=== PATIENT | male | born 1955 | race American Indian/Alaskan Native ===

== ENCOUNTER 2021-01-20 18:34 | Inpatient (IN) | payer MEDICARE, OTHER ==
--- NOTE | 2021-01-20 19:29 | Emergency Department Report ---
- General Stated complaint: WEAKNESS/HEART ARRYTHMIA Time Seen by Provider: 01/20/21 19:10 - History of Present Illness Initial comments: 65-year-old male, history of hypertension, diabetes, ? Afib, presents to ED with generalized weakness. Patient is somewhat of a poor historian, and is somewhat confused, unable to remember the year. He does state that he has headache, cough, shortness of breath, decreased appetite. I spoke with patient's (Mary) and daughter (Crystal), over the phone. They report patient has had some generalized weakness since yesterday that has progressed and become worse today. States patient has been unsteady on his feet, but has not passed out. She reports cough and fever, no vomiting or diarrhea. reports patient takes Eliquis, she believes it is for atrial fibrillation. Patient has not received a COVID-19 vaccine at this time. EMS reports patient was febrile, temp of 102, and hypoxic upon their arrival, with O2 sats initially in the 70s. Accu-Chek 110. Patient also reportedly ran out of his blood pressure medication as well. Patient's O2 sats are 89% on room air here in the ED. daughter [phone] or [phone] Complaint: generalized weakness -: days(s) (2) Location: generalized Severity: moderate Consistency: constant Improves with: none Worsens with: none Associated Symptoms: fever/chills. denies: chest pain, nausea/vomiting - Related Data Home Medications Medication Instructions Recorded Confirmed Last Taken Amlodipine Besylate [Norvasc] 10 mg PO DAILY 01/20/21 01/20/21 01/19/21 Atorvastatin [Lipitor Tab] 80 mg PO DAILY 01/20/21 01/20/21 01/19/21 Banophen Anti-Itch 25 mg PO DAILY 01/20/21 01/20/21 01/19/21 Metformin HCl [metFORMIN ER 500 mg PO DAILY 01/20/21 01/20/21 01/19/21 Osmotic] Metoprolol [Lopressor] 25 mg PO DAILY 01/20/21 01/20/21 01/19/21 Allergies Allergy/AdvReac Type Severity Reaction Status Date / Time No Known Allergies Allergy Unverified 01/20/21 19:59 ED Review of Systems ROS: Stated complaint: WEAKNESS/HEART ARRYTHMIA Other details as noted in HPI Comment: All other systems reviewed and negative Constitutional: fever, weakness Respiratory: cough, shortness of breath Cardiovascular: denies: chest pain Gastrointestinal: denies: abdominal pain, vomiting, diarrhea Neurological: headache ED Past Medical Hx - Medications Home Medications: Home Medications Medication Instructions Recorded Confirmed Last Taken Type Amlodipine Besylate [Norvasc] 10 mg PO DAILY 01/20/21 01/20/21 01/19/21 History Atorvastatin [Lipitor Tab] 80 mg PO DAILY 01/20/21 01/20/21 01/19/21 History Banophen Anti-Itch 25 mg PO DAILY 01/20/21 01/20/21 01/19/21 History Metformin HCl [metFORMIN ER 500 mg PO DAILY 01/20/21 01/20/21 01/19/21 History Osmotic] Metoprolol [Lopressor] 25 mg PO DAILY 01/20/21 01/20/21 01/19/21 History ED Physical Exam - General General appearance: alert, in no apparent distress - Head Head exam: Present: atraumatic, normocephalic - Eye Eye exam: Present: normal appearance, EOMI - ENT ENT exam: Present: mucous membranes moist - Neck Neck exam: Present: normal inspection - Respiratory Respiratory exam: Present: normal lung sounds bilaterally, other (Slightly tachypneic) - Cardiovascular Cardiovascular Exam: Present: regular rate, normal rhythm - GI/Abdominal GI/Abdominal exam: Present: soft. Absent: distended, tenderness - Extremities Exam Extremities exam: Present: normal inspection. Absent: pedal edema, calf tenderness - Neurological Exam Neurological exam: Present: alert, CN II-XII intact. Absent: oriented X3 (Oriented to self and place), motor sensory deficit - Psychiatric Psychiatric exam: Present: normal affect, normal mood - Skin Skin exam: Present: warm, dry, intact, normal color ED Course Vital Signs 01/20/21 01/20/21 01/20/21 18:34 19:16 20:00 Temperature 101.2 F H Pulse Rate 89 104 H 113 H Respiratory 22 12 20 Rate Blood Pressure 196/114 Blood Pressure 192/111 [Right] O2 Sat by Pulse 89 72 L Oximetry 01/20/21 01/20/21 01/20/21 20:45 21:00 22:00 Temperature Pulse Rate 100 H 101 H 99 H Respiratory 23 17 Rate Blood Pressure 196/114 166/93 179/103 Blood Pressure [Right] O2 Sat by Pulse 99 99 Oximetry 01/20/21 01/20/21 22:37 23:43 Temperature 100.4 F H 98.1 F Pulse Rate 91 H Respiratory 20 Rate Blood Pressure Blood Pressure 168/95 [Right] O2 Sat by Pulse 99 Oximetry ED Medical Decision Making - Lab Data Result diagrams: 01/20/21 19:26 01/20/21 19:26 - EKG Data -: EKG Interpreted by Me EKG shows normal: QRS complexes Rate: normal - EKG Data Interpretation: nonspecific ST-T wave minal, other (Atrial fibrillation) - Radiology Data Radiology results: report reviewed, image reviewed - Medical Decision Making 65-year-old male with fever, cough, shortness of breath. O2 sats of 89% on room air. WBC is normal. Lactic acid normal. Chest x-ray unremarkable. CT chest was done which shows right middle and lower lobe inflammatory changes. Will treat as pneumonia. Blood cultures ordered. Rocephin and azithromycin adminis tered. Covid markers sent off. Will test for Covid tomorrow. Decadron also given. CT head shows parietal lesion which needs MRI for further characterization. Patient will be admitted by hospitalist, Dr. Luna, for further management. - Differential Diagnosis Pneumonia, COVID-19, ACS Critical Care Time: Yes Critical care time in (mins) excluding proc time.: 35 Critical care attestation.: If time is entered above; I have spent that time in minutes in the direct care of this critically ill patient, excluding procedure time. Critical Care Time: 35 min ED Disposition Clinical Impression: Hypoxia, Pneumonia, Suspected 2019 novel coronavirus infection, Hypertensive urgency Disposition: OP ADMIT IP TO THIS HOSP Is pt being admited?: Yes Condition: Stable Time of Disposition: 23:04
[2021-01-20 19:44] LABS: Bilirubin,Urine NEG (Negative); Blood,Urine NEG (Negative); Color,Urine Yellow (Yellow); Urobilinogen,Urine < 2.0 mg/dL (<2.0)
[2021-01-20 19:47] LABS: Basophils # (Auto) 0.1 K/mm3 (0.0-0.1); Eosinophils % (Auto) 0.5 % (0.0-4.3); Hematocrit 45.8 % (35.5-45.6); Hemoglobin 15.3 gm/dl (11.8-15.2); Lymphocytes # (Auto) 0.3 K/mm3 (1.2-5.4); Lymphocytes % (Auto) 5.2 % (13.4-35.0); Mean Corpuscular HGB Conc 34 % (32-34); Mean Corpuscular Volume 98 fl (84-94); Monocytes # (Auto) 0.7 K/mm3 (0.0-0.8); Monocytes % (Auto) 10.4 % (0.0-7.3); Platelet Count 219 K/mm3 (140-440); Red Blood Count 4.67 M/mm3 (3.65-5.03); Red Cell Distribution Width 15.2 % (13.2-15.2)
--- NOTE | 2021-01-20 19:49 | XRay Report ---
CHEST 1 VIEW 01/20/2021 7:21 PM INDICATION / CLINICAL INFORMATION: Cough and fever. COMPARISON: None available. FINDINGS: SUPPORT DEVICES: None. HEART / MEDIASTINUM: There is mild to moderate cardiomegaly with a left ventricular configuration. Pu lmonary vasculature is normal for technique. The aorta is mildly tortuous and ectatic without aneurys m. LUNGS / PLEURA: No significant pulmonary or pleural abnormality. No pneumothorax. ADDITIONAL FINDINGS: There is mild to moderate elevation of the left hemidiaphragm. IMPRESSION: No acute findings. I see no evidence of pneumonia. Signer Name: Homero Isidro MD Signed: 01/20/2021 7:45 PM Workstation Name: [id number]
[2021-01-20 20:00] LABS: Protein,Urine >500 mg/dL (Negative)
[2021-01-20 20:01] LABS: Alanine Aminotransferase 15 units/L (7-56); Albumin 4.1 g/dL (3.9-5); BUN/Creatinine Ratio 11; Blood Urea Nitrogen 10 mg/dL (9-20); Calcium 8.7 mg/dL (8.4-10.2); Hemolysis Index 8
[2021-01-20 20:05] LABS: INR 1.05 (0.87-1.13)
[2021-01-20 20:06] LABS: Partial Thromboplastin Time 30.5 Sec. (24.2-36.6)
[2021-01-20] MEDS ORDERED: hydrALAZINE 20 MG/1 ML INJ IV ONE (20:17)
[2021-01-20] MEDS ORDERED: ACETAMINOPHEN 500 MG TAB PO ONE (20:18)
[2021-01-20] MEDS ORDERED: LORazepam 2 MG/ML VIAL IV ONE (21:32)
--- NOTE | 2021-01-20 22:52 | Cat Scan Report ---
CT HEAD WITHOUT CONTRAST HISTORY: dizziness COMPARISON: None TECHNIQUE: CT imaging of the head was performed in the axial, sagittal, and coronal projections and bone algori thm in axial projection in the soft tissue algorithm. All CT scans at this location are performed using CT dose reduction for ALARA by means of automated e xposure control. CONTRAST: None. FINDINGS: Streak artifact and motion artifact obscures fine detail Cerebral and Cerebellar Hemispheres: Well-defined area of decreased attenuation is present right vaughn etal lobe measuring 1.8 cm in diameter. No extra-axial fluid collection. Ventricles: Normal in size and configuration for age. Osseous Structures: No significant abnormality. Visualized Paranasal Sinuses: No significant abnormality. Additional Findings: None IMPRESSION: 1. Limited imaging secondary to artifact as noted. Low dense area right parietal lobe, etiology uncl ear recommend MR for further evaluation NOTE: Acute infarct may not be visible by noncontrast CT. Signer Name: Eligio Boss MD Signed: 01/20/2021 10:47 PM Workstation Name: [id number]
--- NOTE | 2021-01-20 22:57 | Cat Scan Report ---
CT CHEST WITHOUT CONTRAST INDICATION / CLINICAL INFORMATION: fever, cough, sob. , TECHNIQUE: Axial CT images were obtained through the chest without contrast. All CT scans at this location are p erformed using CT dose reduction for ALARA by means of automated exposure control. COMPARISON: None available. FINDINGS: HEART: No significant abnormality. THORACIC AORTA: No significant abnormality. MEDIASTINUM and ANGELIA: No significant abnormality. LUNGS: Minimum parenchymal changes right middle and right lower lobe. PLEURA: No significant pleural effusion. No pneumothorax. ADDITIONAL FINDINGS: None. UPPER ABDOMEN: No significant abnormality. SKELETAL SYSTEM: No significant abnormality. IMPRESSION: 1. Possible mild inflammatory process right middle and right lower lobe. Signer Name: Eligio Boss MD Signed: 01/20/2021 10:53 PM Workstation Name: [id number]
[2021-01-20] MEDS ORDERED: AZITHROMYCIN 250 MG TAB PO ONE (22:59)
[2021-01-20] MEDS ORDERED: cefTRIAXone/NS 1 GM/50 ML 1 GM/50 ML BAG IV ONE (22:59)
[2021-01-20] MEDS ORDERED: DEXAMETHASONE 4 MG TAB PO ONE (23:00)
[2021-01-20] MEDS ORDERED: ONDANSETRON 4 MG/2 ML INJ IV PRN (23:38)
[2021-01-20] MEDS ORDERED: ALBUTEROL 2.5 MG/3 ML NEBU IH PRN (23:38)
[2021-01-20] MEDS ORDERED: DEXTROSE 50% IN WATER (25GM) 50 ML SYRINGE IV PRN (23:38)
[2021-01-20] MEDS ORDERED: SODIUM CHLORIDE 0.9% 1000 ML 1,000 ML IV SCH (23:45)
[2021-01-20] MEDS ORDERED: hydrALAZINE 20 MG/1 ML INJ IV PRN (23:46)
--- NOTE | 2021-01-20 23:54 | History and Physical Report ---
History of Present Illness Date of examination: 01/20/21 Date of admission: 01/20/21 23:06 Chief complaint: Weakness Headache, cough Shortness of breath fever chills History of present illness: 65-year-old male with past medical history of diabetes, hypertension [place] was brought to the emergency room because of generalized weakness. Patient is somewhat of a poor historian, and confused, unable to remember the year. Patient has headache, cough, shortness of breath, decreased appetite. As per patient's (Mary) and daughter (Crystal),patient has had some generalized weakness since yesterday that has progressed and become worse today. States patient has been unsteady on his feet, but has not passed out. She reports cough and fever, no vomiting or diarrhea. reports patient takes Eliquis, she believes it is for atrial fibrillation. Patient has not received a COVID-19 vaccine at this time. EMS reports patient was febrile, temp of 102, and hypoxic upon their arrival, with O2 sats initially in the 70s. Accu-Chek 110. Patient also reportedly ran out of his blood pressure medication as well. In the emergency room patient CT scan of the chest shows possible mild inflammatory process right middle lobe and right lower lobe. Also CT scan of the head shows limited imaging secondary to artifact as noted low dense area right parietal lobe etiology unclear recommend MR for further evaluation Past History Past Medical History: atrial fib, diabetes, hypertension Medications and Allergies Allergies Allergy/AdvReac Type Severity Reaction Status Date / Time No Known Allergies Allergy Unverified 01/20/21 19:59 Home Medications Medication Instructions Recorded Confirmed Last Taken Type Amlodipine Besylate [Norvasc] 10 mg PO DAILY 01/20/21 01/20/21 01/19/21 History Atorvastatin [Lipitor Tab] 80 mg PO DAILY 01/20/21 01/20/21 01/19/21 History Banophen Anti-Itch 25 mg PO DAILY 01/20/21 01/20/21 01/19/21 History Metformin HCl [metFORMIN ER 500 mg PO DAILY 01/20/21 01/20/21 01/19/21 History Osmotic] Metoprolol [Lopressor] 25 mg PO DAILY 01/20/21 01/20/21 01/19/21 History Active Meds: Active Medications Acetaminophen (Acetaminophen 325 Mg Tab) 650 mg PO Q4H PRN PRN Reason: Pain MILD(1-3)/Fever >100.5/[place] Albuterol (Albuterol 2.5 Mg/3 Ml Nebu) 2.5 mg IH Q4HRT PRN PRN Reason: Shortness Of Breath Albuterol/Ipratropium (Ipratropium/Albuterol Sulfate 3 Ml Ampul.Neb) 1 ampul IH Q6HRT [facility] Amlodipine Besylate (Amlodipine 5 Mg Tab) 10 mg PO DAILY [facility] Aspirin (Aspirin 325 Mg Tab) 325 mg PO QDAY [facility] Atorvastatin Calcium (Atorvastatin 40 Mg Tab) 40 mg PO QHS [facility] Dextrose (Dextrose 50% In Water (25gm) 50 Ml Syringe) 50 ml IV Q30MIN PRN; Protocol PRN Reason: Hypoglycemia Famotidine (Famotidine 20 Mg Tab) 20 mg PO BID [facility] Heparin Sodium (Porcine) (Heparin 5,000 Unit/1 Ml Vial) 5,000 unit SUB-Q Q8HR [facility] Hydralazine HCl (Hydralazine 20 Mg/1 Ml Inj) 10 mg IV Q6H PRN PRN Reason: htn Sodium Chloride (Nacl 0.9% 1000 Ml) 1,000 mls @ 75 mls/hr IV DIRECT NGUYEN Ceftriaxone Sodium (Rocephin/Ns 2 Gm/100 Ml) 2 gm in 100 mls @ 200 mls/hr IV Q24H NGUYEN; Protocol Azithromycin (Zithromax/Ns) 500 mg in 250 mls @ 250 mls/hr IV Q24H NGUYEN; Protocol Insulin Human Lispro (Insulin Lispro 100 Unit/Ml) 0 unit SUB-Q Q6HR [facility]; Protocol Labetalol HCl (Labetalol 20 Mg/4 Ml Inj) 10 mg IV Q5MIN PRN PRN Reason: to maintain SBP < 180 Metoprolol Tartrate (Metoprolol Tartrate 25 Mg Tab) 25 mg PO DAILY [facility] Miscellaneous Medication (Atorvastatin [Lipitor]) 80 mg PO DAILY [facility] Ondansetron HCl (Ondansetron 4 Mg/2 Ml Inj) 4 mg IV Q8H PRN PRN Reason: Nausea And Vomiting Sodium Chloride (Sodium Chloride 0.9% 10 Ml Flush Syringe) 10 ml IV BID [facility] Sodium Chloride (Sodium Chloride 0.9% 10 Ml Flush Syringe) 10 ml IV PRN PRN PRN Reason: LINE FLUSH Review of Systems Constitutional: fever, chills, weakness Cardiovascular: rapid/irregular heart beat, shortness of breath Respiratory: shortness of breath, other (Hypoxic) Exam - Constitutional Vitals: Temp Pulse Resp BP Pulse Ox 98.1 F 91 H 20 168/95 99 01/20/21 23:43 01/20/21 23:43 01/20/21 23:43 01/20/21 23:43 01/20/21 23:43 General appearance: Present: no acute distress, well-nourished - EENT Eyes: Present: PERRL ENT: hearing intact, clear oral mucosa - Neck Neck: Present: supple, normal ROM - Respiratory Respiratory effort: normal Respiratory: bilateral: diminished - Cardiovascular Heart Sounds: Present: S1 & S2. Absent: rub, click - Extremities Extremities: pulses symmetrical, No edema Peripheral Pulses: within normal limits - Abdominal General gastrointestinal: Present: soft, non-tender, non-distended, normal bowel sounds Male genitourinary: Present: normal - Integumentary Integumentary: Present: clear, warm, dry - Musculoskeletal Musculoskeletal: gait normal, strength equal bilaterally - Psychiatric Psychiatric: other (Confused) - Neurologic Neurologic: CNII-XII intact, moves all extremities HEART Score - HEART Score Troponin: Troponin T < 0.010 ng/mL (0.00-0.029) 01/20/21 19:26 Results - Labs CBC & Chem 7: 01/20/21 19:26 01/20/21 19:26 Labs: Laboratory Last Values WBC 6.4 K/mm3 (4.5-11.0) 01/20/21 19: RBC 4.67 M/mm3 (3.65-5.03) 01/20/21 19:26 Hgb 15.3 gm/dl (11.8-15.2) H 01/20/21 19:26 Hct 45.8 % (35.5-45.6) H 01/20/21 19: MCV 98 fl (84-94) H 01/20/21 19: MCH 33 pg (28-32) H 01/20/21 19: MCHC 34 % (32-34) 01/20/21 19: RDW 15.2 % (13.2-15.2) 01/20/21 19:26 Plt Count 219 K/mm3 (140-440) 01/20/21 19:26 Lymph % (Auto) 5.2 % (13.4-35.0) L 01/20/21 19:26 [place] % (Auto) 10.4 % (0.0-7.3) H 01/20/21 19:26 Eos % (Auto) 0.5 % (0.0-4.3) 01/20/21 19:26 Baso % (Auto) 1.0 % (0.0-1.8) 01/20/21 19:26 Lymph # (Auto) 0.3 K/mm3 (1.2-5.4) L 01/20/21 19:26 [place] # (Auto) 0.7 K/mm3 (0.0-0.8) 01/20/21 19: Eos # (Auto) 0.0 K/mm3 (0.0-0.4) 01/20/21 19: Baso # (Auto) 0.1 K/mm3 (0.0-0.1) 01/20/21 19:26 Seg Neutrophils % 82.9 % (40.0-70.0) H 01/20/21 19:26 Seg Neutrophils # 5.3 K/mm3 (1.8-7.7) 01/20/21 19:26 PT 13.6 Sec. (12.2-14.9) 01/20/21 19:26 INR 1.05 (0.87-1.13) 01/20/21 19:26 APTT 30.5 Sec. (24.2-36.6) 01/20/21 19:26 Sodium 139 mmol/L (137-145) 01/20/21 19:26 Potassium 4.0 mmol/L (3.6-5.0) 01/20/21 19:26 Chloride 97.8 mmol/L (98-107) L 01/20/21 19:26 Carbon Dioxide 33 mmol/L (22-30) H 01/20/21 19:26 Anion Gap 12 mmol/L 01/20/21 19:26 BUN 10 mg/dL (9-20) 01/20/21 19:26 Creatinine 0.9 mg/dL (0.8-1.3) 01/20/21 19:26 Estimated GFR > 60 ml/min 01/20/21 19:26 BUN/Creatinine Ratio 11 % 01/20/21 19:26 Glucose 127 mg/dL (75-100) H 01/20/21 19:26 Lactic Acid 1.50 mmol/L (0.7-2.0) 01/20/21 19:26 Calcium 8.7 mg/dL (8.4-10.2) 01/20/21 19:26 Total Bilirubin 0.70 mg/dL (0.1-1.2) 01/20/21 19:26 AST 20 units/L (5-40) 01/20/21 19:26 ALT 15 units/L (7-56) 01/20/21 19:26 Alkaline Phosphatase 95 units/L (35-129) 01/20/21 19: Troponin T < 0.010 ng/mL (0.00-0.029) 01/20/21 19:26 Total Protein 7.7 g/dL (6.3-8.2) 01/20/21: Albumin 4.1 g/dL (3.9-5) 01/20/21 19:26 Albumin/Globulin Ratio 1.1 % 01/20/21 19:26 Urine Color Yellow (Yellow) 01/20/21 Unknown Urine Turbidity Clear (Clear) 01/20/21 Unknown Urine pH 6.0 (5.0-7.0) 01/20/21 Unknown Ur Specific [place] 1.022 (1.003-1.030) 01/20/21 Unknown Urine Protein >500 mg/dL (Negative) 01/20/21 Unknown Urine Glucose (UA) Neg mg/dL (Negative) 01/20/21 Unknown Urine Ketones Neg mg/dL (Negative) 01/20/21 Unknown Urine Blood Neg (Negative) 01/20/21 Unknown Urine Nitrite Neg (Negative) 01/20/21 Unknown Urine Bilirubin Neg (Negative) 01/20/21 Unknown Urine Urobilinogen < 2.0 mg/dL (<2.0) 01/20/21 Unknown Ur Leukocyte Esterase Neg (Negative) 01/20/21 Unknown Urine WBC (Auto) 1.0 /HPF (0.0-6.0) 01/20/21 Unknown Urine RBC (Auto) 4.0 /HPF (0.0-6.0) 01/20/21 Unknown U Epithel Cells (Auto) < 1.0 /HPF (0-13.0) 01/20/21 Unknown Microbiology: Microbiology 01/20/21 19:26 Peripheral/Venous Blood Culture - Preliminary Culture in Progress 01/20/21 19:26 Peripheral/Venous Blood Culture - Preliminary Culture in Progress - Imaging and Cardiology CT scan - chest: report reviewed CT Scan - head: report reviewed Assessment and Plan VTE prophylaxis?: Chemical Plan of care discussed with patient/family: Yes - Patient Problems (1) Pneumonia Current Visit: Yes Status: Acute Plan to address problem: Admit the patient to the medical telemetry. Put the patient on pneumonia pathway. Oxygen via nasal cannula 3 L/min. DuoNeb by nebulizer every 4 hours as needed. Rocephin 2 g IV daily and Zithromax 500 mg IV daily we will do the blood culture and sputum culture. If needed will consult pulmonary (2) Hypoxia Current Visit: Yes Status: Acute Plan to address problem: Put the patient on pneumonia pathway. Oxygen via nasal cannula 3 L/min. DuoNeb by nebulizer every 4 hours as needed. If needed will consult pulmonary (3) Suspected 2019 novel coronavirus infection Current Visit: Yes Status: Acute Plan to address problem: Put the patient on pneumonia pathway. Oxygen via nasal cannula 3 L/min. DuoNeb by nebulizer every 4 hours as needed. Dexamethasone 6 mg IV daily. Rocephin 2 g IV daily and Zithromax 500 mg IV daily we will do the blood culture and sputum culture. Follow the Covid inflammatory markers and Covid PCR. If needed will consult infectious disease (4) Diabetes Current Visit: Yes Status: Acute Plan to address problem: We will put the patient on Humalog sliding scale Accu-Chek every 6 hours with moderate dose coverage. We also consult diabetic education (5) A-fib Current Visit: Yes Status: Acute Plan to address problem: Heparin 5000 units subcu every 8 hours. We do echocardiogram. If needed will consult cardiology (6) Hypertensive urgency Current Visit: Yes Status: Acute Plan to address problem: Labetalol 10 mg IV q. 5 minutes as needed. Hydralazine 10 mg IV every 6 hours as needed. Metoprolol 25 mg p.o. daily. We will monitor the blood pressure closely (7) Abnormal CT scan, head Current Visit: Yes Status: Acute Plan to address problem: We will put the patient on CVA pathway. Aspirin 325 mg p.o. daily and Lipitor 40 mg p.o. daily. We will do MRI of the brain and MRA of the brain and neck with and without contrast. If needed will consult neurology. (8) DVT prophylaxis Current Visit: Yes Status: Acute Plan to address problem: Heparin 5000 units subcu every 8 hours for DVT prophylaxis. Pepcid 20 mg p.o. twice daily for GI prophylaxis. Patient is a full code
[2021-01-21] MEDS: INSULIN LISPRO 100 UNIT/ML SUB-Q SCH ×4 (00:33→19:11)
[2021-01-21 01:48] LABS: C-Reactive Protein 2.7 mg/dL (0.00-1.30)
[2021-01-21] MEDS ORDERED: IPRATROPIUM/ALBUTEROL SULFATE 3 ML AMPUL.NEB IH SCH (02:00)
[2021-01-21] MEDS: ACETAMINOPHEN 325 MG TAB PO PRN (05:34)
[2021-01-21] MEDS ORDERED: HEPARIN 5,000 UNIT/1 ML VIAL SUB-Q SCH (06:00)
[2021-01-21 06:09] LABS: Hematocrit 47.9 % (35.5-45.6); Hemoglobin 15.9 gm/dl (11.8-15.2); Mean Corpuscular HGB Conc 33 % (32-34); Mean Corpuscular Volume 98 fl (84-94); Platelet Count 221 K/mm3 (140-440); Red Blood Count 4.87 M/mm3 (3.65-5.03); Red Cell Distribution Width 15.3 % (13.2-15.2)
[2021-01-21 06:29] LABS: Blood Urea Nitrogen 11 mg/dL (9-20); Calcium 8.8 mg/dL (8.4-10.2); Chol/HDL Ratio 3.68 %; HDL Cholesterol 57 mg/dL (40-59); Hemolysis Index 3; LDL Cholesterol,Direct 155 mg/dL (50-130)
[2021-01-21 06:39] LABS: BUN/Creatinine Ratio 16
[2021-01-21] MEDS: METOPROLOL TARTRATE 25 MG TAB PO SCH (08:06)
[2021-01-21] MEDS: dexAMETHasone 4 MG/ML VIAL IV SCH (11:02)
[2021-01-21] MEDS: ASPIRIN 325 MG TAB PO SCH (11:03)
[2021-01-21] MEDS: FAMOTIDINE 20 MG TAB PO SCH ×2 (11:03→21:42)
[2021-01-21] MEDS: amLODIPine 10 MG TAB PO SCH (11:04)
[2021-01-21 12:03] LABS: Total Cells Counted 100
[2021-01-21 12:04] LABS: Platelet Estimate Consistent w Auto; RBC Morphology Normal
--- NOTE | 2021-01-21 13:18 | Progress Note ---
Assessment and Plan Assessment and plan: --Possible pneumonia Current Visit: Yes Status: Acute Empiric antibiotics follow cultures, oxygen titration O2 sats to more than 90% Supportive care --Acute hypoxia Current Visit: Yes Status: Acute Oxygen titrate O2 sats to more than 90%, albuterol Empiric antibiotics, follow cultures, home O2 evaluation at discharge --PUI suspected 2019 novel coronavirus infection Current Visit: Yes Status: Acute Isolation, prone positioning, if COVID-19 is positive Inflammatory markers, ID consult if positive --Type II diabetes Current Visit: Yes Status: Acute Accu-Chek sliding scale coverage ADA diet Insulin and oral hypoglycemics as needed --History of chronic A. fib A-fib Current Visit: Yes Status: Acute continue beta-blockers. Patient takes Eliquis at home Resume Eliquis 5 mg twice a day and beta-blockers closely monitor --Hypertensive urgency Current Visit: Yes Status: Acute Continue multiple antihypertensives And as needed hydralazine --Abnormal CT scan, head Current Visit: Yes Status: Acute CVA pathway, neuro work-up, aspirin and statin PT and OT, discharge planning per case management --DVT prophylaxis Current Visit: Yes Status: Acute Heparin 5000 units subcu every 8 hours for DVT prophylaxis. Pepcid 20 mg p.o. twice daily for GI prophylaxis. Patient is a full code We will closely monitor the patient and adjust management as needed Plan of care reviewed with the patient and his nurse History Interval history: I have seen and examined the patient at the bedside Patient's chart and medications reviewed Patient severely lethargic, getting confused at times Hospitalist Physical - Constitutional Vitals: Temp Pulse Resp BP Pulse Ox 100.1 F H 84 18 136/78 91 01/21/21 04:41 01/21/21 11:04 01/21/21 04:41 01/21/21 11:04 01/21/21 04:41 General appearance: Present: no acute distress, well-nourished - EENT Eyes: Present: PERRL, EOM intact - Neck Neck: Present: supple, normal ROM - Respiratory Respiratory effort: normal Respiratory: bilateral: diminished, negative: rales, rhonchi, wheezing - Cardiovascular Rhythm: regularly irregular Heart Sounds: Present: S1 & S2 - Extremities Extremities: no ischemia, pulses intact - Abdominal General gastrointestinal: soft, non-tender, non-distended, normal bowel sounds - Integumentary Integumentary: Present: clear, warm - Psychiatric Psychiatric: appropriate mood/affect, cooperative - Neurologic Neurologic: CNII-XII intact, moves all extremities HEART Score - HEART Score Troponin: Troponin T < 0.010 ng/mL (0.00-0.029) 01/20/21 19:26 Results - Labs CBC & Chem 7: 01/21/21 05:45 01/21/21 05:45 Labs: Laboratory Last Values WBC 7.1 K/mm3 (4.5-11.0) 01/21/21 05:45 RBC 4.87 M/mm3 (3.65-5.03) 01/21/21 05:45 Hgb 15.9 gm/dl (11.8-15.2) H 01/21/21 05:45 Hct 47.9 % (35.5-45.6) H 01/21/21 05:45 MCV 98 fl (84-94) H 01/21/21 05:45 MCH 33 pg (28-32) H 01/21/21 05:45 MCHC 33 % (32-34) 01/21/21 05:45 RDW 15.3 % (13.2-15.2) H 01/21/21 05:45 Plt Count 221 K/mm3 (140-440) 01/21/21 05:45 Lymph % (Auto) 5.2 % (13.4-35.0) L 01/20/21 19:26 [place] % (Auto) 10.4 % (0.0-7.3) H 01/20/21 19:26 Eos % (Auto) 0.5 % (0.0-4.3) 01/20/21 19:26 Baso % (Auto) 1.0 % (0.0-1.8) 01/20/21 19:26 Lymph # (Auto) 0.3 K/mm3 (1.2-5.4) L 01/20/21 19:26 [place] # (Auto) 0.7 K/mm3 (0.0-0.8) 01/20/21 19:26 Eos # (Auto) 0.0 K/mm3 (0.0-0.4) 01/20/21 19:26 Baso # (Auto) 0.1 K/mm3 (0.0-0.1) 01/20/21 19:26 Add Manual Diff Complete 01/21/21 05:45 Total Counted 100 01/21/21 05:45 Seg Neutrophils % Publicity Person 01/21/21 05:45 Seg Neuts % (Manual) 96.0 % (40.0-70.0) H 01/21/21 05:45 Lymphocytes % (Manual) 3.0 % (13.4-35.0) L 01/21/21 05:45 Monocytes % (Manual) 1.0 % (0.0-7.3) 01/21/21 05:45 Nucleated RBC % Not Reportable 01/21/21 05:45 Seg Neutrophils # 5.3 K/mm3 (1.8-7.7) 01/20/21 19:26 Seg Neutrophils # Man 6.8 K/mm3 (1.8-7.7) 01/21/21 05:45 Band Neutrophils # 0.0 K/mm3 01/21/21 05:45 Lymphocytes # (Manual) 0.2 K/mm3 (1.2-5.4) L 01/21/21 05:45 Abs React Lymphs (Man) 0.0 K/mm3 01/21/21 05:45 Monocytes # (Manual) 0.1 K/mm3 (0.0-0.8) 01/21/21 05:45 Eosinophils # (Manual) 0.0 K/mm3 (0.0-0.4) 01/21/21 05:45 Basophils # (Manual) 0.0 K/mm3 (0.0-0.1) 01/21/21 05:45 Metamyelocytes # 0.0 K/mm3 01/21/21 05:45 Myelocytes # 0.0 K/mm3 01/21/21 05:45 Promyelocytes # 0.0 K/mm3 01/21/21 05:45 Blast Cells # 0.0 K/mm3 01/21/21 05:45 WBC Morphology Not Reportable 01/21/21 05:45 Hypersegmented Neuts Not Reportable 01/21/21 05:45 Hyposegmented Neuts Not Reportable 01/21/21 05:45 Hypogranular Neuts Not Reportable 01/21/21 05:45 Smudge Cells Not Reportable 01/21/21 05:45 Toxic Granulation Not Reportable 01/21/21 05:45 Toxic Vacuolation Not Reportable 01/21/21 05:45 Dohle Bodies Not Reportable 01/21/21 05:45 Pelger-Huet Anomaly Not Reportable 01/21/21 05:45 Masood Rods Not Reportable 01/21/21 05:45 Platelet Estimate Consistent w auto 01/21/21 05:45 Clumped Platelets Not Reportable 01/21/21 05:45 Plt Clumps, EDTA Not Reportable 01/21/21 05:45 Large Platelets Not Reportable 01/21/21 05:45 Giant Platelets Not Reportable 01/21/21 05:45 Platelet Satelliting Not Reportable 01/21/21 05:45 Plt Morphology Comment Not Reportable 01/21/21 05:45 RBC Morphology Normal 01/21/21 05:45 Dimorphic RBCs Not Reportable 01/21/21 05:45 Polychromasia Not Reportable 01/21/21 05:45 Hypochromasia Not Reportable 01/21/21 05:45 Poikilocytosis Not Reportable 01/21/21 05:45 Anisocytosis Not Reportable 01/21/21 05:45 Microcytosis Not Reportable 01/21/21 05:45 Macrocytosis Not Reportable 01/21/21 05:45 Spherocytes Not Reportable 01/21/21 05:45 Pappenheimer Bodies Not Reportable 01/21/21 05:45 Sickle Cells Not Reportable 01/21/21 05:45 Target Cells Not Reportable 01/21/21 05:45 Tear Drop Cells Not Reportable 01/21/21 05:45 Ovalocytes Not Reportable 01/21/21 05:45 Helmet Cells Not Reportable 01/21/21 05:45 [place] Bodies Not Reportable 01/21/21 05:45 [place] Rings Not Reportable 01/21/21 05:45 [place] Cells Not Reportable 01/21/21 05:45 Bite Cells Not Reportable 01/21/21 05:45 Crenated Cell Not Reportable 01/21/21 05:45 Elliptocytes Not Reportable 01/21/21 05:45 Acanthocytes (Spur) Not Reportable 01/21/21 05:45 Rouleaux Not Reportable 01/21/21 05:45 Hemoglobin C Crystals Not Reportable 01/21/21 05:45 Schistocytes Not Reportable 01/21/21 05:45 Malaria parasites Not Reportable 01/21/21 05:45 Roney Bodies Not Reportable 01/21/21 05:45 Hem Pathologist Commnt No 01/21/21 05:45 PT 13.6 Sec. (12.2-14.9) 01/20/21 19:26 INR 1.05 (0.87-1.13) 01/20/21 19:26 APTT 30.5 Sec. (24.2-36.6) 01/20/21 19:26 D-Dimer 229.34 ng/mlDDU (0-234) 01/20/21 23:20 Sodium 139 mmol/L (137-145) 01/21/21 05:45 Potassium 4.3 mmol/L (3.6-5.0) 01/21/21 05:45 Chloride 96.2 mmol/L (98-107) L 01/21/21 05:45 Carbon Dioxide 35 mmol/L (22-30) H 01/21/21 05:45 Anion Gap 12 mmol/L 01/21/21 05:45 BUN 11 mg/dL (9-20) 01/21/21 05:45 Creatinine 0.7 mg/dL (0.8-1.3) L 01/21/21 05:45 Estimated GFR > 60 ml/min 01/21/21 05:45 BUN/Creatinine Ratio 16 % 01/21/21 05:45 Glucose 142 mg/dL (75-100) H 01/21/21 05:45 POC Glucose 119 mg/dL (70-105) H 01/21/21 00:17 Lactic Acid 1.50 mmol/L (0.7-2.0) 01/20/21 19:26 Calcium 8.8 mg/dL (8.4-10.2) 01/21/21 05:45 Ferritin 128.4 ng/mL (30.0-300.0) 01/20/21 23:20 Total Bilirubin 0.70 mg/dL (0.1-1.2) 01/20/21 19:26 AST 20 units/L (5-40) 01/20/21 19:26 ALT 15 units/L (7-56) 01/20/21 19:26 Alkaline Phosphatase 95 units/L (35-129) 01/20/21 19:26 Lactate Dehydrogenase 384 units/L (91-180) H 01/20/21 23:20 Troponin T < 0.010 ng/mL (0.00-0.029) 01/20/21 19:26 C-Reactive Protein 2.70 mg/dL (0.00-1.30) H 01/20/21 23:20 Total Protein 7.7 g/dL (6.3-8.2) 01/20/21 19:26 Albumin 4.1 g/dL (3.9-5) 01/20/21 19:26 Albumin/Globulin Ratio 1.1 % 01/20/21 19:26 Triglycerides 49 mg/dL (2-149) 01/21/21 05:45 Cholesterol 210 mg/dL (50-199) H 01/21/21 05:45 LDL Cholesterol Direct 155 mg/dL (50-130) H 01/21/21 05:45 HDL Cholesterol 57 mg/dL (40-59) 01/21/21 05:45 Cholesterol/HDL Ratio 3.68 % 01/21/21 05:45 Procalcitonin 0.13 ng/mL (<0.15) 01/20/21 23:20 Urine Color Yellow (Yellow) 01/20/21 Unknown Urine Turbidity Clear (Clear) 01/20/21 Unknown Urine pH 6.0 (5.0-7.0) 01/20/21 Unknown Ur Specific [place] 1.022 (1.003-1.030) 01/20/21 Unknown Urine Protein >500 mg/dL (Negative) 01/20/21 Unknown Urine Glucose (UA) Neg mg/dL (Negative) 01/20/21 Unknown Urine Ketones Neg mg/dL (Negative) 01/20/21 Unknown Urine Blood Neg (Negative) 01/20/21 Unknown Urine Nitrite Neg (Negative) 01/20/21 Unknown Urine Bilirubin Neg (Negative) 01/20/21 Unknown Urine Urobilinogen < 2.0 mg/dL (<2.0) 01/20/21 Unknown Ur Leukocyte Esterase Neg (Negative) 01/20/21 Unknown Urine WBC (Auto) 1.0 /HPF (0.0-6.0) 01/20/21 Unknown Urine RBC (Auto) 4.0 /HPF (0.0-6.0) 01/20/21 Unknown U Epithel Cells (Auto) < 1.0 /HPF (0-13.0) 01/20/21 Unknown Microbiology: Microbiology 01/20/21 Unknown Urine,Clean Catch Urine Culture - Preliminary 01/20/21 19:26 Peripheral/Venous Blood Culture - Preliminary Culture in Progress 01/20/21 19:26 Peripheral/Venous Blood Culture - Preliminary Culture in Progress Active Medications - Current Medications Current Medications: Generic Name Dose Route Start Last Admin Trade Name Freq PRN Reason Stop Dose Admin Acetaminophen 650 mg 01/20/21 23:38 01/21/21 05:34 Acetaminophen 325 Mg Tab PO 650 mg Q4H PRN Administration Pain MILD(1-3)/Fever >100.5/GIB[place] Albuterol 2.5 mg 01/20/21 23:38 Albuterol 2.5 Mg/3 Ml Nebu IH Q4HRT PRN Shortness Of Breath Amlodipine Besylate 10 mg 01/21/21 10:00 01/21/21 11:04 Amlodipine 10 Mg Tab PO 10 mg DAILY NGUYEN Administration Aspirin 325 mg 01/21/21 10:00 01/21/21 11:03 Aspirin 325 Mg Tab PO 325 mg QDAY NGUYEN Administration Atorvastatin Calcium 80 mg 01/21/21 10:00 01/21/21 11:05 Atorvastatin 40 Mg Tab PO 80 mg DAILY NGUYEN Administration Dexamethasone 6 mg 01/21/21 10:00 01/21/21 11:02 Dexamethasone 4 Mg/Ml Vial IV 01/29/21 10:01 6 mg DAILY NGUYEN Administration Dextrose 0 ml 01/20/21 23:38 Dextrose 50% In Water (25gm) 50 Ml Syringe IV Q30MIN PRN Hypoglycemia Protocol Famotidine 20 mg 01/21/21 10:00 01/21/21 11:03 Famotidine 20 Mg Tab PO 20 mg BID NGUYEN Administration Heparin Sodium (Porcine) 5,000 unit 01/21/21 06:00 01/21/21 05:34 Heparin 5,000 Unit/1 Ml Vial SUB-Q 5,000 unit Q8HR NGUYEN Administration Hydralazine HCl 10 mg 01/20/21 23:46 Hydralazine 20 Mg/1 Ml Inj IV Q6H PRN htn Sodium Chloride 1,000 mls @ 75 mls/hr 01/20/21 23:45 Nacl 0.9% 1000 Ml IV DIRECT NGUYEN Ceftriaxone Sodium 2 gm in 100 mls @ 200 mls/hr 01/21/21 22:00 Rocephin/Ns 2 Gm/100 Ml IV 01/24/21 22:29 QHS [facility] Protocol Azithromycin 500 mg in 250 mls @ 250 mls/hr 01/21/21 22:00 Zithromax/Ns IV 01/24/21 22:59 QHS [facility] Protocol Insulin Human Lispro 0 unit 01/21/21 00:00 01/21/21 12:42 Insulin Lispro 100 Unit/Ml SUB-Q Not Given Q6HR [facility] Protocol Labetalol HCl 10 mg 01/20/21 23:38 Labetalol 20 Mg/4 Ml Inj IV Q5MIN PRN to maintain SBP < 180 Metoprolol Tartrate 25 mg 01/21/21 08:00 01/21/21 08:06 Metoprolol Tartrate 25 Mg Tab PO 25 mg DAILY@0800 NGUYEN Administration Ondansetron HCl 4 mg 01/20/21 23:38 Ondansetron 4 Mg/2 Ml Inj IV Q8H PRN Nausea And Vomiting Sodium Chloride 10 ml 01/21/21 10:00 01/21/21 11:07 Sodium Chloride 0.9% 10 Ml Flush Syringe IV 10 ml BID NGUYEN Administration Sodium Chloride 10 ml 01/20/21 23:38 Sodium Chloride 0.9% 10 Ml Flush Syringe IV PRN PRN LINE FLUSH Nutrition/Malnutrition Assess - Dietary Evaluation Nutrition/Malnutrition Findings: Nutrition Notes Start: 01/21/21 11:45 Freq: Status: Active Protocol: Document 01/21/21 11:45 (Rec: 01/21/21 11:48 [id number]) Nutrition Notes Need for Assessment 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 Pt with no Bro score or wounds noted. Pt did not answer phone. Nutrition Intervention Follow-Up By: 01/22/21 Additional Comments FU for diet education
[2021-01-21] MEDS ORDERED: APIXABAN 2.5 MG TAB PO SCH (14:00)
[2021-01-21 15:42] LABS: Hematocrit 45.8 % (35.5-45.6); Mean Corpuscular HGB Conc 33 % (32-34); Mean Corpuscular Volume 98 fl (84-94); Platelet Count 231 K/mm3 (140-440); Red Blood Count 4.68 M/mm3 (3.65-5.03); Red Cell Distribution Width 15.1 % (13.2-15.2)
[2021-01-21 15:54] LABS: INR 1.14 (0.87-1.13); Partial Thromboplastin Time 30.5 Sec. (24.2-36.6)
[2021-01-21] MEDS: APIXABAN 5 MG TAB PO SCH (16:53)
[2021-01-21] MEDS: cefTRIAXone/NS 2 GM/100 ML 2 GM/100 ML BAG IV SCH (21:43)
[2021-01-21] MEDS: AZITHROMYCIN/NS 500 MG/250 ML 500 MG/250 ML BAG IV SCH (23:20)
[2021-01-22] MEDS: APIXABAN 5 MG TAB PO SCH ×2 (00:32→09:45)
[2021-01-22] MEDS: INSULIN LISPRO 100 UNIT/ML SUB-Q SCH ×5 (06:31→23:18)
[2021-01-22] MEDS: METOPROLOL TARTRATE 25 MG TAB PO SCH (08:25)
--- NOTE | 2021-01-22 09:27 | Progress Note ---
Assessment and Plan Assessment and plan: --Acute hypoxic respiratory failure requiring intubation Current Visit: Yes Status: Acute Continue ventilatory support, supportive care Critical care consult, wean as tolerated and extubate --Acute CVA /abnormal CT head/? right parietal lobe infarct Current Visit: Yes Status: Acute Not a candidate for TPA Neuro work-up is in progress Neurology evaluation and recommendations noted and appreciated PT and OT,rehab Neurology consult --Possible pneumonia right middle and lower lobe[on CT chest] Current Visit: Yes Status: Acute Empiric antibiotics follow cultures, oxygen titration O2 sats to more than 90% Supportive care --COVID-19 test negative Current Visit: Yes Status: Acute May DC isolation --Type II diabetes Current Visit: Yes Status: Acute Accu-Chek sliding scale coverage ADA diet Insulin and oral hypoglycemics as needed --History of chronic A. fib A-fib Current Visit: Yes Status: Acute continue beta-blockers. Patient takes Eliquis at home Resume Eliquis 5 mg twice a day and beta-blockers closely monitor --Hypertensive urgency Current Visit: Yes Status: Acute Continue multiple antihypertensives And as needed hydralazine --DVT prophylaxis Current Visit: Yes Status: Acute Heparin 5000 units subcu every 8 hours for DVT prophylaxis. Pepcid 20 mg p.o. twice daily for GI prophylaxis. Patient is a full code We will closely monitor the patient and adjust management as needed Plan of care reviewed with the patient and his nurse 01/22/2021; neuro work-up is in progress, follow PT OT eval Neurology consult, continue antibiotics and supportive care History Interval history: I have seen and examined the patient at the bedside this morning, Patient's chart and medications reviewed Patient was admitted with strokelike symptoms, neuro work-up is in progress right-sided pneumonia on empiric antibiotics Patient has slow speech, slightly confused No new complaints Vital signs reviewed Hospitalist Physical - Constitutional Vitals: Temp Pulse Resp BP Pulse Ox 98 F 68 16 127/84 96 01/22/21 05:25 01/22/21 08:25 01/22/21 05:25 01/22/21 08:25 01/22/21 05:25 General appearance: Present: no acute distress, well-nourished, obese - EENT Eyes: Present: PERRL, EOM intact - Neck Neck: Present: supple, normal ROM - Respiratory Respiratory effort: normal Respiratory: right: rhonchi, bilateral: diminished, negative: rales, wheezing - Cardiovascular Rhythm: regular Heart Sounds: Present: S1 & S2 - Extremities Extremities: no ischemia, No edema - Abdominal General gastrointestinal: soft, non-tender, non-distended, normal bowel sounds - Integumentary Integumentary: Present: clear, warm - Psychiatric Psychiatric: other (Slightly confused) - Neurologic Neurologic: moves all extremities, other (Residual weakness) HEART Score - HEART Score Troponin: Troponin T < 0.010 ng/mL (0.00-0.029) 01/20/21 19:26 Results - Labs CBC & Chem 7: 01/23/21 06:08 01/21/21 15:13 Labs: Laboratory Last Values WBC 6.2 K/mm3 (4.5-11.0) 01/21/21 15:13 RBC 4.68 M/mm3 (3.65-5.03) 01/21/21 15:13 Hgb 15.0 gm/dl (11.8-15.2) 01/21/21 15:13 Hct 45.8 % (35.5-45.6) H 01/21/21 15:13 MCV 98 fl (84-94) H 01/21/21 15:13 MCH 32 pg (28-32) 01/21/21 15:13 MCHC 33 % (32-34) 01/21/21 15:13 RDW 15.1 % (13.2-15.2) 01/21/21 15:13 Plt Count 231 K/mm3 (140-440) 01/21/21 15:13 Lymph % (Auto) 5.2 % (13.4-35.0) L 01/20/21 19:26 Bollinger % (Auto) 10.4 % (0.0-7.3) H 01/20/21 19:26 Eos % (Auto) 0.5 % (0.0-4.3) 01/20/21 19: Baso % (Auto) 1.0 % (0.0-1.8) 01/20/21 19:26 Lymph # (Auto) 0.3 K/mm3 (1.2-5.4) L 01/20/21 19:26 [place]linger # (Auto) 0.7 K/mm3 (0.0-0.8) 01/20/21 19:26 Eos # (Auto) 0.0 K/mm3 (0.0-0.4) 01/20/21 19:26 Baso # (Auto) 0.1 K/mm3 (0.0-0.1) 01/20/21 19:26 Add Manual Diff Complete 01/21/21 05:45 Total Counted 100 01/21/21 05:45 Seg Neutrophils % 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 [employer]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 01/21/21 05:45 Seg Neuts % (Manual) 96.0 % (40.0-70.0) H 01/21/21 05:45 Lymphocytes % (Manual) 3.0 % (13.4-35.0) L 01/21/21 05:45 Monocytes % (Manual) 1.0 % (0.0-7.3) 01/21/21 05:45 Nucleated RBC % Not Reportable 01/21/21 05:45 Seg Neutrophils # 5.3 K/mm3 (1.8-7.7) 01/20/21 19:26 Seg Neutrophils # Man 6.8 K/mm3 (1.8-7.7) 01/21/21 05:45 Band Neutrophils # 0.0 K/mm3 01/21/21 05:45 Lymphocytes # (Manual) 0.2 K/mm3 (1.2-5.4) L 01/21/21 05:45 Abs React Lymphs (Man) 0.0 K/mm3 01/21/21 05:45 Monocytes # (Manual) 0.1 K/mm3 (0.0-0.8) 01/21/21 05:45 Eosinophils # (Manual) 0.0 K/mm3 (0.0-0.4) 01/21/21 05:45 Basophils # (Manual) 0.0 K/mm3 (0.0-0.1) 01/21/21 05:45 Metamyelocytes # 0.0 K/mm3 01/21/21 05:45 Myelocytes # 0.0 K/mm3 01/21/21 05:45 Promyelocytes # 0.0 K/mm3 01/21/21 05:45 Blast Cells # 0.0 K/mm3 01/21/21 05:45 WBC Morphology Not Reportable 01/21/21 05:45 Hypersegmented Neuts Not Reportable 01/21/21 05:45 Hyposegmented Neuts Not Reportable 01/21/21 05:45 Hypogranular Neuts Not Reportable 01/21/21 05:45 Smudge Cells Not Reportable 01/21/21 05:45 Toxic Granulation Not Reportable 01/21/21 05:45 Toxic Vacuolation Not Reportable 01/21/21 05:45 Dohle Bodies Not Reportable 01/21/21 05:45 Pelger-Huet Anomaly Not Reportable 01/21/21 05:45 Masood Rods Not Reportable 01/21/21 05:45 Platelet Estimate Consistent w auto 01/21/21 05:45 Clumped Platelets Not Reportable 01/21/21 05:45 Plt Clumps, EDTA Not Reportable 01/21/21 05:45 Large Platelets Not Reportable 01/21/21 05:45 Giant Platelets Not Reportable 01/21/21 05:45 Platelet Satelliting Not Reportable 01/21/21 05:45 Plt Morphology Comment Not Reportable 01/21/21 05:45 RBC Morphology Normal 01/21/21 05:45 Dimorphic RBCs Not Reportable 01/21/21 05:45 Polychromasia Not Reportable 01/21/21 05:45 Hypochromasia Not Reportable 01/21/21 05:45 Poikilocytosis Not Reportable 01/21/21 05:45 Anisocytosis Not Reportable 01/21/21 05:45 Microcytosis Not Reportable 01/21/21 05:45 Macrocytosis Not Reportable 01/21/21 05:45 Spherocytes Not Reportable 01/21/21 05:45 Pappenheimer Bodies Not Reportable 01/21/21 05:45 Sickle Cells Not Reportable 01/21/21 05:45 Target Cells Not Reportable 01/21/21 05:45 Tear Drop Cells Not Reportable 01/21/21 05:45 Ovalocytes Not Reportable 01/21/21 05:45 Helmet Cells Not Reportable 01/21/21 05:45 Ramírez-Idalou Bodies Not Reportable 01/21/21 05:45 Jennings Rings Not Reportable 01/21/21 05:45 Ab Cells Not Reportable 01/21/21 05:45 Bite Cells Not Reportable 01/21/21 05:45 Crenated Cell Not Reportable 01/21/21 05:45 Elliptocytes Not Reportable 01/21/21 05:45 Acanthocytes (Spur) Not Reportable 01/21/21 05:45 Rouleaux Not Reportable 01/21/21 05:45 Hemoglobin C Crystals Not Reportable 01/21/21 05:45 Schistocytes Not Reportable 01/21/21 05:45 Malaria parasites Not Reportable 01/21/21 05:45 Roney Bodies Not Reportable 01/21/21 05:45 Hem Pathologist Commnt No 01/21/21 05:45 PT 14.5 Sec. (12.2-14.9) 01/21/21 15:13 INR 1.14 (0.87-1.13) H 01/21/21 15:13 APTT 30.5 Sec. (24.2-36.6) 01/21/21 15:13 D-Dimer 229.34 ng/mlDDU (0-234) 01/20/21 23:20 Sodium 139 mmol/L (137-145) 01/21/21 05:45 Potassium 4.3 mmol/L (3.6-5.0) 01/21/21 05:45 Chloride 96.2 mmol/L (98-107) L 01/21/21 05:45 Carbon Dioxide 35 mmol/L (22-30) H 01/21/21 05:45 Anion Gap 12 mmol/L 01/21/21 05:45 BUN 11 mg/dL (9-20) 01/21/21 05:45 Creatinine 0.9 mg/dL (0.8-1.3) 01/21/21 15:13 Estimated GFR > 60 ml/min 01/21/21 15:13 BUN/Creatinine Ratio 16 % 01/21/21 05:45 Glucose 142 mg/dL (75-100) H 01/21/21 05:45 POC Glucose 107 mg/dL (70-105) H 01/22/21 06:06 Lactic Acid 1.50 mmol/L (0.7-2.0) 01/20/21 19:26 Calcium 8.8 mg/dL (8.4-10.2) 01/21/21 05:45 Ferritin 128.4 ng/mL (30.0-300.0) 01/20/21 23:20 Total Bilirubin 0.70 mg/dL (0.1-1.2) 01/20/21 19:26 AST 20 units/L (5-40) 01/20/21 19:26 ALT 15 units/L (7-56) 01/20/21 19:26 Alkaline Phosphatase 95 units/L (35-129) 01/20/21 19:26 Lactate Dehydrogenase 384 units/L (91-180) H 01/20/21 23:20 Troponin T < 0.010 ng/mL (0.00-0.029) 01/20/21 19:26 C-Reactive Protein 2.70 mg/dL (0.00-1.30) H 01/20/21 23:20 Total Protein 7.7 g/dL (6.3-8.2) 01/20/21 19: Albumin 4.1 g/dL (3.9-5) 01/20/21 19: Albumin/Globulin Ratio 1.1 % 01/20/21 19:26 Triglycerides 49 mg/dL (2-149) 01/21/21 05:45 Cholesterol 210 mg/dL (50-199) H 01/21/21 05:45 LDL Cholesterol Direct 155 mg/dL (50-130) H 01/21/21 05:45 HDL Cholesterol 57 mg/dL (40-59) 01/21/21 05:45 Cholesterol/HDL Ratio 3.68 % 01/21/21 05:45 Procalcitonin 0.13 ng/mL (<0.15) 01/20/21 23:20 Urine Color Yellow (Yellow) 01/20/21 Unknown Urine Turbidity Clear (Clear) 01/20/21 Unknown Urine pH 6.0 (5.0-7.0) 01/20/21 Unknown Ur Specific [place] 1.022 (1.003-1.030) 01/20/21 Unknown Urine Protein >500 mg/dL (Negative) 01/20/21 Unknown Urine Glucose (UA) Neg mg/dL (Negative) 01/20/21 Unknown Urine Ketones Neg mg/dL (Negative) 01/20/21 Unknown Urine Blood Neg (Negative) 01/20/21 Unknown Urine Nitrite Neg (Negative) 01/20/21 Unknown Urine Bilirubin Neg (Negative) 01/20/21 Unknown Urine Urobilinogen < 2.0 mg/dL (<2.0) 01/20/21 Unknown Ur Leukocyte Esterase Neg (Negative) 01/20/21 Unknown Urine WBC (Auto) 1.0 /HPF (0.0-6.0) 01/20/21 Unknown Urine RBC (Auto) 4.0 /HPF (0.0-6.0) 01/20/21 Unknown U Epithel Cells (Auto) < 1.0 /HPF (0-13.0) 01/20/21 Unknown Coronavirus (PCR) Negative (Negative) 01/21/21 Unknown Microbiology: Microbiology 01/20/21 19:26 Peripheral/Venous Blood Culture - Preliminary NO GROWTH AFTER 24 HOURS 01/20/21 19:26 Peripheral/Venous Blood Culture - Preliminary NO GROWTH AFTER 24 HOURS 01/20/21 Unknown Urine,Clean Catch Urine Culture - Preliminary Wilde/IV: Voiding Method Condom Catheter Active Medications - Current Medications Current Medications: Generic Name Dose Route Start Last Admin Trade Name Freq PRN Reason Stop Dose Admin Acetaminophen 650 mg 01/20/21 23:38 01/21/21 05:34 Acetaminophen 325 Mg Tab PO 650 mg Q4H PRN Administration Pain MILD(1-3)/Fever >100.5/GIB[place]ONS Albuterol 2.5 mg 01/20/21 23:38 Albuterol 2.5 Mg/3 Ml Nebu IH Q4HRT PRN Shortness Of Breath Amlodipine Besylate 10 mg 01/21/21 10:00 01/21/21 11:04 Amlodipine 10 Mg Tab PO 10 mg DAILY NGUYEN Administration Apixaban 5 mg 01/21/21 14:00 01/22/21 00:32 Apixaban 5 Mg Tab PO 5 mg Q12HR NGUYEN Administration Aspirin 325 mg 01/21/21 10:00 01/21/21 11:03 Aspirin 325 Mg Tab PO 325 mg QDAY NGUYEN Administration Atorvastatin Calcium 80 mg 01/21/21 10:00 01/21/21 11:05 Atorvastatin 40 Mg Tab PO 80 mg DAILY NGUYEN Administration Dexamethasone 6 mg 01/21/21 10:00 01/21/21 11:02 Dexamethasone 4 Mg/Ml Vial IV 01/29/21 10:01 6 mg DAILY NGUYEN Administration Dextrose 0 ml 01/20/21 23:38 Dextrose 50% In Water (25gm) 50 Ml Syringe IV Q30MIN PRN Hypoglycemia Protocol Famotidine 20 mg 01/21/21 10:00 01/21/21 21:42 Famotidine 20 Mg Tab PO 20 mg BID NGUYEN Administration Hydralazine HCl 10 mg 01/20/21 23:46 Hydralazine 20 Mg/1 Ml Inj IV Q6H PRN htn Sodium Chloride 1,000 mls @ 75 mls/hr 01/20/21 23:45 Nacl 0.9% 1000 Ml IV DIRECT NGUYEN Ceftriaxone Sodium 2 gm in 100 mls @ 200 mls/hr 01/21/21 22:00 01/21/21 21:43 Rocephin/Ns 2 Gm/100 Ml IV 01/24/21 22:29 200 mls/hr QHS NGUYEN Administration Protocol Azithromycin 500 mg in 250 mls @ 250 mls/hr 01/21/21 22:00 01/21/21 23:20 Zithromax/Ns IV 01/24/21 22:59 250 mls/hr QHS NGUYEN Administration Protocol Insulin Human Lispro 0 unit 01/21/21 00:00 01/22/21 06:31 Insulin Lispro 100 Unit/Ml SUB-Q Not Given Q6HR [facility] Protocol Labetalol HCl 10 mg 01/20/21 23:38 Labetalol 20 Mg/4 Ml Inj IV Q5MIN PRN to maintain SBP < 180 Metoprolol Tartrate 25 mg 01/21/21 08:00 01/22/21 08:25 Metoprolol Tartrate 25 Mg Tab PO 25 mg DAILY@0800 NGUYEN Administration Ondansetron HCl 4 mg 01/20/21 23:38 Ondansetron 4 Mg/2 Ml Inj IV Q8H PRN Nausea And Vomiting Sodium Chloride 10 ml 01/21/21 10:00 01/21/21 21:43 Sodium Chloride 0.9% 10 Ml Flush Syringe IV 10 ml BID NGUYEN Administration Sodium Chloride 10 ml 01/20/21 23:38 Sodium Chloride 0.9% 10 Ml Flush Syringe IV PRN PRN LINE FLUSH Nutrition/Malnutrition Assess - Dietary Evaluation Nutrition/Malnutrition Findings: Nutrition Notes Start: 01/21/21 11:45 Freq: Status: Active Protocol: Document 01/21/21 11:45 MK (Rec: 01/21/21 11:48 MK [id number]) Nutrition Notes Need for Assessment generated from: MD Order,board of education secretary Initial or Follow up Brief Note Current Diagnosis Diabetes,Hypertension Other Pertinent Diagnosis AMS, pneu, COVID PUI Current Diet NPO Labs/Tests Cholesterol 210 LDL 155 Subjective/Other Information MD consult for education and RN screen for skin risk. Pt with no Bro score or wounds noted. Pt did not answer phone. Nutrition Intervention Follow-Up By: 01/22/21 Additional Comments FU for diet education
[2021-01-22] MEDS: amLODIPine 10 MG TAB PO SCH (09:46)
[2021-01-22] MEDS: FAMOTIDINE 20 MG TAB PO SCH ×2 (09:46→22:26)
[2021-01-22] MEDS: dexAMETHasone 4 MG/ML VIAL IV SCH (09:46)
[2021-01-22] MEDS: ASPIRIN 325 MG TAB PO SCH (09:46)
[2021-01-22] MEDS ORDERED: LORazepam 2 MG/ML VIAL IV ONE (11:38)
--- NOTE | 2021-01-22 11:59 | Consultation ---
History of Present Illness Consult date: 01/22/21 Reason for Consult: weakness,AF,Abnormal CT brain History of present illness: Weakness Headache, cough Shortness of breath fever chills History of present illness: 65-year-old male with past medical history of diabetes, hypertension A. [place] was brought to the emergency room because of generalized weakness. Patient is somewhat of a poor historian, and confused, unable to remember the year. Patient has headache, cough, shortness of breath, decreased appetite. As per patient's (Mary) and daughter (Crystal),patient has had some generalized weakness since yesterday that has progressed and become worse today. States patient has been unsteady on his feet, but has not passed out. She reports cough and fever, no vomiting or diarrhea. reports patient takes Eliquis, she believes it is for atrial fibrillation. Patient has not received a COVID-19 vaccine at this time. EMS reports patient was febrile, temp of 102, and hypoxic upon their arrival, with O2 sats initially in the 70s. Accu-Chek 110. Patient also reportedly ran out of his blood pressure medication as well. In the emergency room patient CT scan of the chest shows possible mild inflammatory process right middle lobe and right lower lobe. Also CT scan of the head shows limited imaging secondary to artifact as noted low dense area right parietal lobe etiology unclear recommend MR for further evaluation Past History Past Medical History: atrial fib, diabetes, hypertension Medications and Allergies Allergies Allergy/AdvReac Type Severity Reaction Status Date / Time No Known Allergies Allergy Unverified 01/20/21 19:59 Home Medications Medication Instructions Recorded Confirmed Last Taken Type Amlodipine Besylate [Norvasc] 10 mg PO DAILY 01/20/21 01/20/21 01/19/21 History Atorvastatin [Lipitor Tab] 80 mg PO DAILY 01/20/21 01/20/21 01/19/21 History Banophen Anti-Itch 25 mg PO DAILY 01/20/21 01/20/21 01/19/21 History Metformin HCl [metFORMIN ER 500 mg PO DAILY 01/20/21 01/20/21 01/19/21 History Osmotic] Metoprolol [Lopressor] 25 mg PO DAILY 01/20/21 01/20/21 01/19/21 History Active Meds: Active Medications Acetaminophen (Acetaminophen 325 Mg Tab) 650 mg PO Q4H PRN PRN Reason: Pain MILD(1-3)/Fever >100.5/[place] Albuterol (Albuterol 2.5 Mg/3 Ml Nebu) 2.5 mg IH Q4HRT PRN PRN Reason: Shortness Of Breath Albuterol/Ipratropium (Ipratropium/Albuterol Sulfate 3 Ml Ampul.Neb) 1 ampul IH Q6HRT [facility] Amlodipine Besylate (Amlodipine 5 Mg Tab) 10 mg PO DAILY [facility] Aspirin (Aspirin 325 Mg Tab) 325 mg PO QDAY NGUYEN Atorvastatin Calcium (Atorvastatin 40 Mg Tab) 40 mg PO QHS [facility] Dextrose (Dextrose 50% In Water (25gm) 50 Ml Syringe) 50 ml IV Q30MIN PRN; P rotocol PRN Reason: Hypoglycemia Famotidine (Famotidine 20 Mg Tab) 20 mg PO BID [facility] Heparin Sodium (Porcine) (Heparin 5,000 Unit/1 Ml Vial) 5,000 unit SUB-Q Q8HR NGUYEN Hydralazine HCl (Hydralazine 20 Mg/1 Ml Inj) 10 mg IV Q6H PRN PRN Reason: htn Sodium Chloride (Nacl 0.9% 1000 Ml) 1,000 mls @ 75 mls/hr IV DIRECT NGUYEN Ceftriaxone Sodium (Rocephin/Ns 2 Gm/100 Ml) 2 gm in 100 mls @ 200 mls/hr IV Q24H NGUYEN; Protocol Azithromycin (Zithromax/Ns) 500 mg in 250 mls @ 250 mls/hr IV Q24H NGUYEN; Carlos col Insulin Human Lispro (Insulin Lispro 100 Unit/Ml) 0 unit SUB-Q Q6HR NGUYEN; Protocol Labetalol HCl (Labetalol 20 Mg/4 Ml Inj) 10 mg IV Q5MIN PRN PRN Reason: to maintain SBP < 180 Metoprolol Tartrate (Metoprolol Tartrate 25 Mg Tab) 25 mg PO DAILY [facility] Miscellaneous Medication (Atorvastatin [Lipitor]) 80 mg PO DAILY [facility] Ondansetron HCl (Ondansetron 4 Mg/2 Ml Inj) 4 mg IV Q8H PRN PRN Reason: Nausea And Vomiting Sodium Chloride (Sodium Chloride 0.9% 10 Ml Flush Syringe) 10 ml IV BID [facility] Sodium Chloride (Sodium Chloride 0.9% 10 Ml Flush Syringe) 10 ml IV PRN PRN PRN Reason: LINE FLUSH Review of Systems Constitutional: fever, chills, weakness Cardiovascular: rapid/irregular heart beat, shortness of breath Respiratory: shortness of breath, other (Hypoxic) Past History Past Medical History: atrial fib, diabetes, hypertension Medications and Allergies Allergies Allergy/AdvReac Type Severity Reaction Status Date / Time No Known Allergies Allergy Unverified 01/20/21 19:59 Home Medications Medication Instructions Recorded Confirmed Last Taken Type Amlodipine Besylate [Norvasc] 10 mg PO DAILY 01/20/21 01/20/21 01/19/21 History Atorvastatin [Lipitor Tab] 80 mg PO DAILY 01/20/21 01/20/21 01/19/21 History Banophen Anti-Itch 25 mg PO DAILY 01/20/21 01/20/21 01/19/21 History Metformin HCl [metFORMIN ER 500 mg PO DAILY 01/20/21 01/20/21 01/19/21 History Osmotic] Metoprolol [Lopressor] 25 mg PO DAILY 01/20/21 01/20/21 01/19/21 History Active Meds: Active Medications Acetaminophen (Acetaminophen 325 Mg Tab) 650 mg PO Q4H PRN PRN Reason: Pain MILD(1-3)/Fever >100.5/[place] Last Admin: 01/21/21 05:34 Dose: 650 mg Documented by: Albuterol (Albuterol 2.5 Mg/3 Ml Nebu) 2.5 mg IH Q4HRT PRN PRN Reason: Shortness Of Breath Amlodipine Besylate (Amlodipine 10 Mg Tab) 10 mg PO DAILY [facility] Last Admin: 01/22/21 09:46 Dose: 10 mg Documented by: Apixaban (Apixaban 5 Mg Tab) 5 mg PO Q12HR [facility] Last Admin: 01/22/21 09:45 Dose: 5 mg Documented by: Aspirin (Aspirin 325 Mg Tab) 325 mg PO QDAY [facility] Last Admin: 01/22/21 09:46 Dose: 325 mg Documented by: Atorvastatin Calcium (Atorvastatin 40 Mg Tab) 80 mg PO DAILY [facility] Last Admin: 01/22/21 09:46 Dose: 80 mg Documented by: Dextrose (Dextrose 50% In Water (25gm) 50 Ml Syringe) 0 ml IV Q30MIN PRN; Protocol PRN Reason: Hypoglycemia Famotidine (Famotidine 20 Mg Tab) 20 mg PO BID [facility] Last Admin: 01/22/21 09:46 Dose: 20 mg Documented by: Hydralazine HCl (Hydralazine 20 Mg/1 Ml Inj) 10 mg IV Q6H PRN PRN Reason: htn Sodium Chloride (Nacl 0.9% 1000 Ml) 1,000 mls @ 75 mls/hr IV DIRECT NGUYEN Ceftriaxone Sodium (Rocephin/Ns 2 Gm/100 Ml) 2 gm in 100 mls @ 200 mls/hr IV QHS [facility]; Protocol Stop: 01/24/21 22:29 Last Admin: 01/21/21 21:43 Dose: 200 mls/hr Documented by: Azithromycin (Zithromax/Ns) 500 mg in 250 mls @ 250 mls/hr IV QHS [facility]; Protocol Stop: 01/24/21 22:59 Last Admin: 01/21/21 23:20 Dose: 250 mls/hr Documented by: Insulin Human Lispro (Insulin Lispro 100 Unit/Ml) 0 unit SUB-Q Q6HR [facility]; Protocol Last Admin: 01/22/21 06:31 Dose: Not Given Documented by: Labetalol HCl (Labetalol 20 Mg/4 Ml Inj) 10 mg IV Q5MIN PRN PRN Reason: to maintain SBP < 180 Metoprolol Tartrate (Metoprolol Tartrate 25 Mg Tab) 25 mg PO DAILY@0800 [facility] Last Admin: 01/22/21 08:25 Dose: 25 mg Documented by: Ondansetron HCl (Ondansetron 4 Mg/2 Ml Inj) 4 mg IV Q8H PRN PRN Reason: Nausea And Vomiting Sodium Chloride (Sodium Chloride 0.9% 10 Ml Flush Syringe) 10 ml IV BID [facility] Last Admin: 01/22/21 09:48 Dose: 10 ml Documented by: Sodium Chloride (Sodium Chloride 0.9% 10 Ml Flush Syringe) 10 ml IV PRN PRN PRN Reason: LINE FLUSH Physical Examination - Vital Signs Vital Signs: Vital Signs Temp Pulse Resp BP Pulse Ox 101.2 F H 89 22 192/111 97 01/20/21 18:34 01/20/21 18:34 01/20/21 18:34 01/20/21 18:34 01/20/21 18:34 - Constitutional General appearance: other (pt. is lethargic open eyes to verbal command he is disoriented to place and date he is with slurred speech) - EENT EENT: Present: PERRL, mucous membranes moist - Respiratory Respiratory: Present: lungs clear, normal breath sounds, rhonchi - Cardiovascular Cardiovascular: Present: other (Irregular beats) Extremities: Present: no peripheral edema bilatateraly, no clubbing, cyanosis - Gastrointestinal Gastrointestinal: Present: normoactive bowel sounds - Integumentary Integumentary: Present: normal - Neurologic Cranial nerve examination: PERRL, EOMI, V1/V2/V3 grossly intact, other (he is witj slurred speech and left facial droop , no clear visual deficit ) Speech examination: other (slurred speech) Sensorimotor examination: pronator drift, hemiparesis Detailed motor examination: other (he is with weakness left upper and lower L>U with strength in upper 4-, and lower 3+.he is with significant asterexsis both upper , gait unable to do, planter is down ) - Level of Consciousness 1a. Level of Consciousness: resp stimuli/obtunded - LOC Questions 1b. LOC Questions: answers 1 question correctly - LOC Command 1c. LOC Commands: performs 1 task correctly - Best Gaze 2. Best Gaze: normal - Visual 3. Visual: no visual loss - Facial Palsy 4. Facial Palsy: minor paralysis - Motor Arm 5a. Motor Arm Left: drift 5b. Motor Arm Right: no drift - Motor Leg 6a. Motor Leg Left: drift 6b. Motor Leg Right: some gravity effort - Limb Ataxia 7. Limb Ataxia: absent - Sensory 8. Sensory: normal - Best Language 9. Best Language: no aphasia - Dysarthria 10. Dysarthria: normal - Extinction and Inattention 11. Extinction/Inattention: no abnormality - Scoring Total Score: 9 Stroke Severity: Moderate Stroke Results - Laboratory Findings CBC and BMP: 01/21/21 15:13 01/21/21 15:13 Abnormal Lab Findings: Abnormal Labs 01/20/21 01/20/21 01/20/21 19:26 19:26 23:20 Hgb 15.3 H Hct 45.8 H MCV 98 H MCH 33 H RDW Lymph % (Auto) 5.2 L [place] % (Auto) 10.4 H Lymph # (Auto) 0.3 L Seg Neutrophils % 82.9 H Seg Neuts % (Manual) Lymphocytes % (Manual) Lymphocytes # (Manual) INR Chloride 97.8 L Carbon Dioxide 33 H Creatinine Glucose 127 H POC Glucose Lactate Dehydrogenase 384 H C-Reactive Protein 2.70 H Cholesterol LDL Cholesterol Direct 01/21/21 01/21/21 01/21/21 00:17 05:45 05:45 Hgb 15.9 H Hct 47.9 H MCV 98 H MCH 33 H RDW 15.3 H Lymph % (Auto) [place] % (Auto) Lymph # (Auto) Seg Neutrophils % Seg Neuts % (Manual) 96.0 H Lymphocytes % (Manual) 3.0 L Lymphocytes # (Manual) 0.2 L INR Chloride 96.2 L Carbon Dioxide 35 H Creatinine 0.7 L Glucose 142 H POC Glucose 119 H Lactate Dehydrogenase C-Reactive Protein Cholesterol 210 H LDL Cholesterol Direct 155 H 01/21/21 01/21/21 01/21/21 05:56 09:33 15:13 Hgb Hct 45.8 H MCV 98 H MCH RDW Lymph % (Auto) [place] % (Auto) Lymph # (Auto) Seg Neutrophils % Seg Neuts % (Manual) Lymphocytes % (Manual) Lymphocytes # (Manual) INR Chloride Carbon Dioxide Creatinine Glucose POC Glucose 147 H 153 H Lactate Dehydrogenase C-Reactive Protein Cholesterol LDL Cholesterol Direct 01/21/21 01/21/21 01/22/21 15:13 16:33 01:53 Hgb Hct MCV MCH RDW Lymph % (Auto) [place] % (Auto) Lymph # (Auto) Seg Neutrophils % Seg Neuts % (Manual) Lymphocytes % (Manual) Lymphocytes # (Manual) INR 1.14 H Chloride Carbon Dioxide Creatinine Glucose POC Glucose 126 H 112 H Lactate Dehydrogenase C-Reactive Protein Cholesterol LDL Cholesterol Direct 01/22/21 06:06 Hgb Hct MCV MCH RDW Lymph % (Auto) [place] % (Auto) Lymph # (Auto) Seg Neutrophils % Seg Neuts % (Manual) Lymphocytes % (Manual) Lymphocytes # (Manual) INR Chloride Carbon Dioxide Creatinine Glucose POC Glucose 107 H Lactate Dehydrogenase C-Reactive Protein Cholesterol LDL Cholesterol Direct Assessment and Plan Assessment and Plan VTE prophylaxis?: Chemical Plan of care discussed with patient/family: Yes #Encephalopathy -65 ys old male preesnted with diffuse weakness and fever he is lethargic open eyes only to verbal command with difficulty sustaining eyes open -findings from hx and exam is suggestive of under lying ?infection ,toximetabolic and or drug effect -he is with significant asterexsis in both upper extremties with the possibility of hepatic and or renal insuficency can not be excluded -BUN/CR#wnl -Ammonia is pending -Ct brain is suggestive right parietal hypodensity #Left side weakness and slurred speech -CVA can not be excluded -Ct brain showed rigth sided hypodensity with left side weakness -NIH#9 -Hx of AF on Eliquis Hold medication -PT/ST evaluate -Echo cardiogram -MRI brain r/o CVA - CTA Brain and neck -ASA 325 mg daily for now/300 mg Rectal -Lipitor 40 mg daily -Lipid profil -Echo cardiogram with buble study -quality assurance monitor body # Pneumonia -Admit the patient to the medical telemetry. Put the patient on pneumonia pathway. - Oxygen via nasal cannula 3 L/min. DuoNeb by nebulizer every 4 hours as needed. Rocephin 2 g IV daily and Zithromax 500 mg IV daily we will do the blood culture and sputum culture. # Hypoxia -Put the patient on pneumonia pathway. - Oxygen via nasal cannula 3 L/min. -DuoNeb by nebulizer every 4 hours as needed. -ABG # Suspected 2019 novel coronavirus infection - Oxygen via nasal cannula 3 L/min. DuoNeb by nebulizer every 4 hours as needed. Dexamethasone 6 mg IV daily. Rocephin 2 g IV daily and Zithromax 500 mg -IV daily we will do the blood culture and sputum culture. Follow the Covid inflammatory markers and Covid PCR. If needed will consult infectious disease # Diabetes -We will put the patient on Humalog sliding scale Accu-Chek every 6 hours with moderate dose coverage. -A1C # A-fib -Heparin 5000 units subcu every 8 hours. -We do echocardiogram. -Hold Eliquis for now -ASA 325 mg daily # Hypertensive urgency -Labetalol 10 mg IV q. 5 minutes as needed. Hydralazine 10 mg IV every 6 hours as needed. Metoprolol 25 mg p.o. daily. We will monitor the blood pressure mague sely -Allow for permissive HTN,220/120 for first 24 hours # DVT prophylaxis -Heparin 5000 units subcu every 8 hours for DVT prophylaxis. - Pepcid 20 mg p.o. twice daily for GI prophylaxis. -Patient is a full code PLAN 1- MRI brain 2- CTA brain and neck 3- NPO ,IV fluid 4- Ammonia level 5-Treat underlying infection 6- UDS 7- Hold Eliquis for now --SQ heparine and ASA 325 mg daily 8- Lipid profil --lipitor 40 mg daily 9- Neuro check Q8 hours for 24 hours will follow
[2021-01-22] MEDS: cefTRIAXone/NS 2 GM/100 ML 2 GM/100 ML BAG IV SCH (21:04)
--- NOTE | 2021-01-22 21:19 | Vascular Lab Report ---
DUPLEX DOPPLER ULTRASOUND CAROTID, BILATERAL INDICATION / CLINICAL INFORMATION: CVA work-up. COMPARISON: None available. FINDINGS: RIGHT CAROTID: - PLAQUE ESTIMATE (%): < 50% - CCA velocity: 175 cm/sec. - ICA peak systolic velocity: 100 cm/sec. - ICA/CCA PSV Ratio: Less than 2 Right Vertebral Artery: Antegrade flow. LEFT CAROTID: - PLAQUE ESTIMATE: < 50% - CCA velocity: 140 cm/sec. - ICA peak systolic velocity: 100 cm/sec. - ICA/CCA PSV Ratio: Less than 2 Left Vertebral Artery: Antegrade flow. IMPRESSION: 1. Right Internal Carotid Artery: Less than 50% diameter stenosis. 2. Left Internal Carotid Artery: Less than 50% diameter stenosis. Velocity criteria are extrapolated from diameter data as defined by the Society of Radiologists in Ul trasound Consensus Conference, Radiology 2003; 229;340-346. NO STENOSIS (NORMAL) * Plaque = none; ICA PSV < 125 cm/sec; ICA/CCA PSV Ratio < 2.0 <50% STENOSIS * Plaque < 50%; ICA PSV < 125 cm/sec; ICA/CCA PSV Ratio < 2.0 50-69% STENOSIS * Plaque > 50%; ICA PSV = 125-230 cm/sec; ICA/CCA PSV Ratio = 2.0-4.0 >70% BUT <100% STENOSIS * Plaque > 50%; ICA PSV > 230 cm/sec; ICA/CCA PSV Ratio > 4.0 NEAR OCCLUSION * Plaque = visible lumen; ICA PSV = high/low/none; ICA/CCA PSV Ratio = variable TOTAL OCCLUSION * Plaque = no lumen; ICA PSV = none; ICA/CCA PSV Ratio = N/A Signer Name: Carlos Arroyo MD Signed: 01/22/2021 9:15 PM Workstation Name: [email or web address]
[2021-01-22] MEDS: AZITHROMYCIN/NS 500 MG/250 ML 500 MG/250 ML BAG IV SCH (21:28)
[2021-01-23] MEDS ORDERED: HALOPERIDOL LACTATE 5 MG/1 ML INJ IM PRN (00:22)
[2021-01-23] MEDS: INSULIN LISPRO 100 UNIT/ML SUB-Q SCH ×3 (06:08→18:48)
[2021-01-23 06:18] LABS: Hematocrit 45.5 % (35.5-45.6); Hemoglobin 14.8 gm/dl (11.8-15.2); Mean Corpuscular HGB Conc 33 % (32-34); Mean Corpuscular Volume 101 fl (84-94); Platelet Count 236 K/mm3 (140-440); Red Blood Count 4.52 M/mm3 (3.65-5.03); Red Cell Distribution Width 14.9 % (13.2-15.2)
[2021-01-23] MEDS: ACETAMINOPHEN 650 MG RECT SUPP PR PRN ×2 (08:40→21:34)
[2021-01-23] MEDS: METOPROLOL TARTRATE 25 MG TAB PO SCH (09:21)
[2021-01-23] MEDS ORDERED: FUROSEMIDE 40 MG/4 ML INJ IV NR (10:00)
--- NOTE | 2021-01-23 10:09 | Electrocardiograph Report ---
[facility] Test Date: 2021-01-20 Test Time: 19:47:40 Pat Name: BERTA HONEYCUTT Department: Room: A371 Gender: M Clinical Operations Leader: NURSE : 1955 Requested By: ALEXA NELSON Order Number: [id number] Reading MD: Lewis Arndt Measurements Intervals Caroline Rate: 87 P: MN: QRS: 29 QRSD: 86 T: 222 QT: 357 QTc: 430 Interpretive Statements Atrial fibrillation Abnormal T, consider ischemia, diffuse leads No previous ECG available for comparison Electronically Signed On 01-23-2021 10:08:56 EDT by Lewis Arndt
[2021-01-23] MEDS: amLODIPine 10 MG TAB PO SCH (10:31)
[2021-01-23] MEDS: ASPIRIN 325 MG TAB PO SCH (10:32)
[2021-01-23] MEDS: FAMOTIDINE 20 MG TAB PO SCH ×2 (10:32→21:30)
--- NOTE | 2021-01-23 10:37 | Progress Note ---
Assessment and Plan Assessment and plan: --COVID-19 test negative --Acute hypoxic respiratory failure; requiring intubation 01/23/2021 Current Visit: Yes Status: Acute Continue ventilatory support, pulmonary critical consulted Supportive care, wean as tolerated and extubate Post intubation chest x-ray no pneumothorax --Hypotension/shock: requiring vasopressors Levophed Current Visit: Yes Status: Acute Requiring vasopressor Levophed Titrate and adjust as needed Hold antihypertensives --Pneumonia right middle and lower lobe[on CT chest] Current Visit: Yes Status: Acute Empiric antibiotics follow cultures, --Acute metabolic encephalopathy; present on admission Current Visit: Yes Status: Acute Unknown baseline status, multifactorial CVA, metabolic causes and underlying pneumonia Treat the underlying cause, neurochecks Neuro work-up is in progress --Acute CVA /? right parietal lobe infarct Current Visit: Yes Status: Acute Not a candidate for TPA ,Neuro work-up is in progress Neurology following, PT OT rehab when stable --Seizure episode during intubation; Current Visit: Yes Status: Acute Seizure precaution, IV Ativan as needed Neurology already following --Type II diabetes Current Visit: Yes Status: Acute Accu-Chek sliding scale coverage ADA diet Insulin and oral hypoglycemics as needed --History of chronic A. fib A-fib Current Visit: Yes Status: Acute continue beta-blockers. Patient takes Eliquis at home Resume Eliquis 5 mg twice a day and beta-blockers closely monitor Cardiology consulted --Hypertensive urgency Current Visit: Yes Status: Acute Continue multiple antihypertensives And as needed hydralazine --DVT prophylaxis Current Visit: Yes Status: Acute Heparin 5000 units subcu every 8 hours for DVT prophylaxis. Pepcid 20 mg p.o. twice daily for GI prophylaxis. Full CODE STATUS. We will closely monitor the patient and adjust management as needed Plan of care reviewed with the patient and his nurse Discussed with patient's The high probability of a clinically significant, sudden or life threatening deterioration of the [Respiratory, neuro, metabolic, infectious,] system(s) required my full and direct attention, intervention and personal management. The aggregate critical care time was [45] minutes. This time is in addition to time spent performing reported procedures but includes the following: [x] Data Review and interpretation [x] Patient assessment and monitoring of vital signs [x] Documentation [x] Medication orders and management Critical care time 45 minutes I called patient's and discussed with her extensively the new developments today Patient's acute respiratory failure requiring intubation, need to transfer to ICU, and poor prognosis Advanced directives, CODE STATUS. I answered all her questions Patient is full CODE STATUS at this point 01/22/2021; neuro work-up is in progress, follow PT OT eval Neurology consult, continue antibiotics and supportive care 01/23/2021; patient went into acute respiratory failure requiring intubation and ventilatory support Patient is transferred to ICU, pulmonary critical consulted, hypotensive started on Levophed Pulmonary critical, cardiology and neurology following the patient History Interval history: Patient suddenly went into acute resp failure with o2 satsin 70s and 80s. Nurse reports that patient received haldol 4 mg last night for agitation. Patient is lehergic ,responds only to deep stimuli. Resp tried Bipap with no improvement . Subsequently intubated on vent support Patient had a brief episode of seizure during intubation Vital signs noted Hospitalist Physical - Constitutional Vitals: Temp Pulse Resp BP Pulse Ox 99 F 75 16 135/65 92 01/23/21 10:01/23/21 10:01/23/21 10:01/23/21 10:01/23/21 10:00 General appearance: Present: no acute distress, well-nourished, obese, other (Patient is orally intubated on ventilatory support) - EENT Eyes: Absent: scleral icterus, conjunctival injection ENT: other (ET tube and Dobbhoff in place) - Neck Neck: Present: supple - Respiratory Respiratory effort: normal Respiratory: bilateral: diminished, rhonchi, negative: rales, wheezing - Cardiovascular Rhythm: regular Heart Sounds: Present: S1 & S2 - Extremities Extremities: no ischemia Extremity abnormal: edema - Abdominal General gastrointestinal: soft, non-tender, non-distended, normal bowel sounds - Integumentary Integumentary: Present: clear, warm - Psychiatric Psychiatric: other (Lethargic response to deep stimuli) - Neurologic Neurologic: other (Lethargic responds to only deep stimuli) HEART Score - HEART Score Troponin: Troponin T < 0.010 ng/mL (0.00-0.029) 01/20/21 19:26 Results - Labs CBC & Chem 7: 01/23/21 06:08 01/21/21 15:13 Labs: Laboratory Last Values WBC 7.7 K/mm3 (4.5-11.0) 01/23/21 06:08 RBC 4.52 M/mm3 (3.65-5.03) 01/23/21 06:08 Hgb 14.8 gm/dl (11.8-15.2) 01/23/21 06:08 Hct 45.5 % (35.5-45.6) 01/23/21 06:08 MCV 101 fl (84-94) H 01/23/21 06:08 MCH 33 pg (28-32) H 01/23/21 06:08 MCHC 33 % (32-34) 01/23/21 06:08 RDW 14.9 % (13.2-15.2) 01/23/21 06:08 Plt Count 236 K/mm3 (140-440) 01/23/21 06:08 Lymph % (Auto) 5.2 % (13.4-35.0) L 01/20/21 19:26 [place] % (Auto) 10.4 % (0.0-7.3) H 01/20/21 19:26 Eos % (Auto) 0.5 % (0.0-4.3) 01/20/21 19:26 Baso % (Auto) 1.0 % (0.0-1.8) 01/20/21 19:26 Lymph # (Auto) 0.3 K/mm3 (1.2-5.4) L 01/20/21 19:26 [place] # (Auto) 0.7 K/mm3 (0.0-0.8) 01/20/21 19:26 Eos # (Auto) 0.0 K/mm3 (0.0-0.4) 01/20/21 19:26 Baso # (Auto) 0.1 K/mm3 (0.0-0.1) 01/20/21 19:26 Add Manual Diff Complete 01/21/21 05:45 Total Counted 100 01/21/21 05:45 Seg Neutrophils % Patrol Driver 01/21/21 05:45 Seg Neuts % (Manual) 96.0 % (40.0-70.0) H 01/21/21 05:45 Lymphocytes % (Manual) 3.0 % (13.4-35.0) L 01/21/21 05:45 Monocytes % (Manual) 1.0 % (0.0-7.3) 01/21/21 05:45 Nucleated RBC % Not Reportable 01/21/21 05:45 Seg Neutrophils # 5.3 K/mm3 (1.8-7.7) 01/20/21 19:26 Seg Neutrophils # Man 6.8 K/mm3 (1.8-7.7) 01/21/21 05:45 Band Neutrophils # 0.0 K/mm3 01/21/21 05:45 Lymphocytes # (Manual) 0.2 K/mm3 (1.2-5.4) L 01/21/21 05:45 Abs React Lymphs (Man) 0.0 K/mm3 01/21/21 05:45 Monocytes # (Manual) 0.1 K/mm3 (0.0-0.8) 01/21/21 05:45 Eosinophils # (Manual) 0.0 K/mm3 (0.0-0.4) 01/21/21 05:45 Basophils # (Manual) 0.0 K/mm3 (0.0-0.1) 01/21/21 05:45 Metamyelocytes # 0.0 K/mm3 01/21/21 05:45 Myelocytes # 0.0 K/mm3 01/21/21 05:45 Promyelocytes # 0.0 K/mm3 01/21/21 05:45 Blast Cells # 0.0 K/mm3 01/21/21 05:45 WBC Morphology Not Reportable 01/21/21 05:45 Hypersegmented Neuts Not Reportable 01/21/21 05:45 Hyposegmented Neuts Not Reportable 01/21/21 05:45 Hypogranular Neuts Not Reportable 01/21/21 05:45 Smudge Cells Not Reportable 01/21/21 05:45 Toxic Granulation Not Reportable 01/21/21 05:45 Toxic Vacuolation Not Reportable 01/21/21 05:45 Dohle Bodies Not Reportable 01/21/21 05:45 Pelger-Huet Anomaly Not Reportable 01/21/21 05:45 Masood Rods Not Reportable 01/21/21 05:45 Platelet Estimate Consistent w auto 01/21/21 05:45 Clumped Platelets Not Reportable 01/21/21 05:45 Plt Clumps, EDTA Not Reportable 01/21/21 05:45 Large Platelets Not Reportable 01/21/21 05:45 Giant Platelets Not Reportable 01/21/21 05:45 Platelet Satelliting Not Reportable 01/21/21 05:45 Plt Morphology Comment Not Reportable 01/21/21 05:45 RBC Morphology Normal 01/21/21 05:45 Dimorphic RBCs Not Reportable 01/21/21 05:45 Polychromasia Not Reportable 01/21/21 05:45 Hypochromasia Not Reportable 01/21/21 05:45 Poikilocytosis Not Reportable 01/21/21 05:45 Anisocytosis Not Reportable 01/21/21 05:45 Microcytosis Not Reportable 01/21/21 05:45 Macrocytosis Not Reportable 01/21/21 05:45 Spherocytes Not Reportable 01/21/21 05:45 Pappenheimer Bodies Not Reportable 01/21/21 05:45 Sickle Cells Not Reportable 01/21/21 05:45 Target Cells Not Reportable 01/21/21 05:45 Tear Drop Cells Not Reportable 01/21/21 05:45 Ovalocytes Not Reportable 01/21/21 05:45 Helmet Cells Not Reportable 01/21/21 05:45 Ramírez-Corinna Bodies Not Reportable 01/21/21 05:45 [place] Rings Not Reportable 01/21/21 05:45 [place] Cells Not Reportable 01/21/21 05:45 Bite Cells Not Reportable 01/21/21 05:45 Crenated Cell Not Reportable 01/21/21 05:45 Elliptocytes Not Reportable 01/21/21 05:45 Acanthocytes (Spur) Not Reportable 01/21/21 05:45 Rouleaux Not Reportable 01/21/21 05:45 Hemoglobin C Crystals Not Reportable 01/21/21 05:45 Schistocytes Not Reportable 01/21/21 05:45 Malaria parasites Not Reportable 01/21/21 05:45 Roney Bodies Not Reportable 01/21/21 05:45 Hem Pathologist Commnt No 01/21/21 05:45 PT 14.5 Sec. (12.2-14.9) 01/21/21 15:13 INR 1.14 (0.87-1.13) H 01/21/21 15:13 APTT 30.5 Sec. (24.2-36.6) 01/21/21 15:13 D-Dimer 229.34 ng/mlDDU (0-234) 01/20/21 23:20 Sodium 139 mmol/L (137-145) 01/21/21 05:45 Potassium 4.3 mmol/L (3.6-5.0) 01/21/21 05:45 Chloride 96.2 mmol/L (98-107) L 01/21/21 05:45 Carbon Dioxide 35 mmol/L (22-30) H 01/21/21 05:45 Anion Gap 12 mmol/L 01/21/21 05:45 BUN 11 mg/dL (9-20) 01/21/21 05:45 Creatinine 0.9 mg/dL (0.8-1.3) 01/21/21 15:13 Estimated GFR > 60 ml/min 01/21/21 15:13 BUN/Creatinine Ratio 16 % 01/21/21 05:45 Glucose 142 mg/dL (75-100) H 01/21/21 05:45 POC Glucose 150 mg/dL (70-105) H 01/23/21 05:39 Lactic Acid 1.50 mmol/L (0.7-2.0) 01/20/21 19:26 Calcium 8.8 mg/dL (8.4-10.2) 01/21/21 05:45 Ferritin 128.4 ng/mL (30.0-300.0) 01/20/21 23:20 Total Bilirubin 0.70 mg/dL (0.1-1.2) 01/20/21 19:26 AST 20 units/L (5-40) 01/20/21 19:26 ALT 15 units/L (7-56) 01/20/21 19:26 Alkaline Phosphatase 95 units/L (35-129) 01/20/21 19:26 Ammonia 58.0 umol/L (25-60) 01/22/21 14:19 Lactate Dehydrogenase 384 units/L (91-180) H 01/20/21 23:20 Troponin T < 0.010 ng/mL (0.00-0.029) 01/20/21 19:26 C-Reactive Protein 2.70 mg/dL (0.00-1.30) H 01/20/21 23:20 Total Protein 7.7 g/dL (6.3-8.2) 01/20/21 19:26 Albumin 4.1 g/dL (3.9-5) 01/20/21 19:26 Albumin/Globulin Ratio 1.1 % 01/20/21 19:26 Triglycerides 49 mg/dL (2-149) 01/21/21 05:45 Cholesterol 210 mg/dL (50-199) H 01/21/21 05:45 LDL Cholesterol Direct 155 mg/dL (50-130) H 01/21/21 05:45 HDL Cholesterol 57 mg/dL (40-59) 01/21/21 05:45 Cholesterol/HDL Ratio 3.68 % 01/21/21 05:45 Procalcitonin 0.13 ng/mL (<0.15) 01/20/21 23:20 Urine Color Yellow (Yellow) 01/20/21 Unknown Urine Turbidity Clear (Clear) 01/20/21 Unknown Urine pH 6.0 (5.0-7.0) 01/20/21 Unknown Ur Specific [place] 1.022 (1.003-1.030) 01/20/21 Unknown Urine Protein >500 mg/dL (Negative) 01/20/21 Unknown Urine Glucose (UA) Neg mg/dL (Negative) 01/20/21 Unknown Urine Ketones Neg mg/dL (Negative) 01/20/21 Unknown Urine Blood Neg (Negative) 01/20/21 Unknown Urine Nitrite Neg (Negative) 01/20/21 Unknown Urine Bilirubin Neg (Negative) 01/20/21 Unknown Urine Urobilinogen < 2.0 mg/dL (<2.0) 01/20/21 Unknown Ur Leukocyte Esterase Neg (Negative) 01/20/21 Unknown Urine WBC (Auto) 1.0 /HPF (0.0-6.0) 01/20/21 Unknown Urine RBC (Auto) 4.0 /HPF (0.0-6.0) 01/20/21 Unknown U Epithel Cells (Auto) < 1.0 /HPF (0-13.0) 01/20/21 Unknown Coronavirus (PCR) Negative (Negative) 01/21/21 Unknown Microbiology: Microbiology 01/20/21 19:26 Peripheral/Venous Blood Culture - Preliminary NO GROWTH AFTER 48 HOURS 01/20/21 19:26 Peripheral/Venous Blood Culture - Preliminary NO GROWTH AFTER 48 HOURS 01/20/21 Unknown Urine,Clean Catch Urine Culture - Final Iwlde/IV: Voiding Method Condom Catheter Active Medications - Current Medications Current Medications: Generic Name Dose Route Start Last Admin Trade Name Freq PRN Reason Stop Dose Admin Acetaminophen 650 mg 01/20/21 23:38 01/21/21 05:34 Acetaminophen 325 Mg Tab PO 650 mg Q4H PRN Administration Pain MILD(1-3)/Fever >100.5/GIB[place] Acetaminophen 650 mg 01/23/21 08:23 01/23/21 08:40 Acetaminophen 650 Mg Rect Supp CA 650 mg Q4H PRN Administration Pain, Mild (1-3) IF NPO Albuterol 2.5 mg 01/20/21 23:38 Albuterol 2.5 Mg/3 Ml Nebu IH Q4HRT PRN Shortness Of Breath Amlodipine Besylate 10 mg 01/21/21 10:00 01/23/21 10:31 Amlodipine 10 Mg Tab PO Not Given DAILY NGUYEN Aspirin 325 mg 01/21/21 10:00 01/23/21 10:32 Aspirin 325 Mg Tab PO Not Given QDAY [facility] Atorvastatin Calcium 80 mg 01/21/21 10:00 01/23/21 10:32 Atorvastatin 40 Mg Tab PO Not Given DAILY NGUYEN Dextrose 0 ml 01/20/21 23:38 Dextrose 50% In Water (25gm) 50 Ml Syringe IV Q30MIN PRN Hypoglycemia Protocol Famotidine 20 mg 01/21/21 10:00 01/23/21 10:32 Famotidine 20 Mg Tab PO Not Given BID NGUYEN Furosemide 40 mg 01/23/21 10:00 01/23/21 09:59 Furosemide 40 Mg/4 Ml Inj IV 01/23/21 12:00 40 mg ONCE@1000 NR Administration Haloperidol Lactate 4 mg 01/23/21 00:22 01/23/21 00:38 Haloperidol Lactate 5 Mg/1 Ml Inj IM 4 mg Q8H PRN Administration Agitation Heparin Sodium (Porcine) 5,000 unit 01/23/21 14:00 Heparin 5,000 Unit/1 Ml Vial SUB-Q Q8HR NGUYEN Hydralazine HCl 10 mg 01/20/21 23:46 Hydralazine 20 Mg/1 Ml Inj IV Q6H PRN htn Sodium Chloride 1,000 mls @ 75 mls/hr 01/20/21 23:45 Nacl 0.9% 1000 Ml IV DIRECT NGUYEN Ceftriaxone Sodium 2 gm in 100 mls @ 200 mls/hr 01/21/21 22:00 01/22/21 21:04 Rocephin/Ns 2 Gm/100 Ml IV 01/24/21 22:29 200 mls/hr QHS [facility] Administration Protocol Azithromycin 500 mg in 250 mls @ 250 mls/hr 01/21/21 22:00 01/22/21 21:28 Zithromax/Ns IV 01/24/21 22:59 250 mls/hr QHS [facility] Administration Protocol Insulin Human Lispro 0 unit 01/21/21 00:00 01/23/21 06:08 Insulin Lispro 100 Unit/Ml SUB-Q Not Given Q6HR [facility] Protocol Labetalol HCl 10 mg 01/20/21 23:38 Labetalol 20 Mg/4 Ml Inj IV Q5MIN PRN to maintain SBP < 180 Metoprolol Tartrate 25 mg 01/21/21 08:00 01/23/21 09:21 Metoprolol Tartrate 25 Mg Tab PO Not Given DAILY@0800 [facility] Ondansetron HCl 4 mg 01/20/21 23:38 Ondansetron 4 Mg/2 Ml Inj IV Q8H PRN Nausea And Vomiting Sodium Chloride 10 ml 01/21/21 10:00 01/23/21 10:32 Sodium Chloride 0.9% 10 Ml Flush Syringe IV 10 ml BID NGUYEN Administration Sodium Chloride 10 ml 01/20/21 23:38 Sodium Chloride 0.9% 10 Ml Flush Syringe IV PRN PRN LINE FLUSH Nutrition/Malnutrition Assess - Dietary Evaluation Nutrition/Malnutrition Findings: Nutrition Notes Start: 01/21/21 11:45 Freq: Status: Active Protocol: Document 01/22/21 11:13 LP (Rec: 01/22/21 11:16 LP [id number]) Nutrition Notes Initial or Follow up Brief Note Current Diagnosis Diabetes,Hypertension Other Pertinent Diagnosis AMS, pneu Subjective/Other Information Pt states eating well. Denies need for education. Pt states moving and forgot medications. Nutrition Intervention Revisit per MD consult or patient Sign Off request:
--- NOTE | 2021-01-23 10:41 | XRay Report ---
CHEST 1 VIEW INDICATION: sob. COMPARISON: 01/20/2021 FINDINGS: Support devices: None. Heart: Stable cardiomegaly Lungs/Pleura: Right infrahilar opacity has developed most consistent with large areas of atelectasis in the right middle or lower lobe. The right upper lung and left lung remain clear. Additional findings: None. IMPRESSION: Stable cardiomegaly. Atelectatic changes have developed at the right lung base. Signer Name: Helder Marks Jr, MD Signed: 01/23/2021 10:37 AM Workstation Name: [id number]
[2021-01-23] MEDS ORDERED: LORazepam 2 MG/ML VIAL ONE (11:02)
[2021-01-23] MEDS ORDERED: LACTATED RINGERS 1,000 ML ONE (11:18)
[2021-01-23] MEDS ORDERED: LACTATED RINGERS 1,000 ML IV SCH (11:30)
[2021-01-23] MEDS ORDERED: NORepinephrine/NS 4 MG-250 ML 4 MG/250 ML BAG IV ONE (12:04)
--- NOTE | 2021-01-23 12:14 | XRay Report ---
CHEST 1 VIEW INDICATION: s/p intubation/resp failure. COMPARISON: Earlier today at 1028 hours FINDINGS: Support devices: Endotracheal tube has been inserted which is in good position terminating 4 cm super ior to the neelima. Heart: Stable mild cardiomegaly Lungs/Pleura: Previously described right basilar opacity has resolved consistent with atelectasis. Th e lungs are generally clear. The left hemidiaphragm is mildly elevated which is unchanged. No pleural effusion or pneumothorax. Additional findings: None. IMPRESSION: Adequate placement of the endotracheal tube. Right infrahilar atelectasis has resolved. Signer Name: Helder Marks Jr, MD Signed: 01/23/2021 12:10 PM Workstation Name: [id number]
--- NOTE | 2021-01-23 13:43 | XRay Report ---
CHEST 1 VIEW INDICATION: CENTRAL LINE PLACEMENT. COMPARISON: Earlier today at 1146 hours FINDINGS: Support devices: Endotracheal tube is not clearly seen and may have been removed. Right IJ venous cat heter has been inserted which terminates at the cavoatrial junction. Heart: Stable mild cardiomegaly Lungs/Pleura: The lungs are generally clear with no evidence for infiltrate, pleural effusion or pneu mothorax. Additional findings: None. IMPRESSION: Adequate placement of the right IJ venous catheter. Signer Name: Helder Marks Jr, MD Signed: 01/23/2021 1:38 PM Workstation Name: [id number]
--- NOTE | 2021-01-23 13:56 | Progress Note ---
Assessment and Plan Assessment and Plan VTE prophylaxis?: Chemical Plan of care discussed with patient/family: Yes #Encephalopathy -65 ys old male presented with diffuse weakness and fever he is lethargic open eyes only to verbal command with difficulty sustaining eyes open -findings from hx and exam is suggestive of under lying ?infection ,toximetabolic and or drug effect -he is with significant asterexsis in both upper extremties with the possibility of hepatic and or renal insuficency can not be excluded -BUN/CR#wnl -Ammonia is# 58 -Ct brain is suggestive right parietal hypodensity # respiratory failure -required intubation #Left side weakness and slurred speech -CVA can not be excluded -Ct brain showed rigth sided hypodensity with left side weakness -NIH#9 -Hx of AF on Eliquis Hold medication -PT/ST evaluate -Echo cardiogram pending -MRI brain r/o CVA - CTA Brain and neck pending -ASA 325 mg daily for now/300 mg Rectal -Lipitor 40 mg daily -Lipid profil--LDL#155 -Echo cardiogram with buble study -cardiac nurse specialist # Pneumonia -Admit the patient to the medical telemetry. Put the patient on pneumonia pathway. - Oxygen via nasal cannula 3 L/min. DuoNeb by nebulizer every 4 hours as needed. Rocephin 2 g IV daily and Zithromax 500 mg IV daily we will do the blood culture and sputum culture. # Hypoxia -Put the patient on pneumonia pathway. - Oxygen via nasal cannula 3 L/min. -DuoNeb by nebulizer every 4 hours as needed. -ABG # Diabetes -We will put the patient on Humalog sliding scale Accu-Chek every 6 hours with moderate dose coverage. -A1C pending # A-fib -Heparin 5000 units subcu every 8 hours. -We do echocardiogram. -Hold Eliquis for now -ASA 325 mg daily -SQ heparine # Hypertensive urgency -Labetalol 10 mg IV q. 5 minutes as needed. Hydralazine 10 mg IV every 6 hours as needed. Metoprolol 25 mg p.o. daily. We will monitor the blood pressure closely -Allow for permissive HTN,220/120 for first 24 hours # DVT prophylaxis -Heparin 5000 units subcu every 8 hours for DVT prophylaxis. - Pepcid 20 mg p.o. twice daily for GI prophylaxis. -Patient is a full code PLAN 1- MRI brain 2- CTA brain and neck 3- NPO ,IV fluid 4-Treat underlying infection 5- Hold Eliquis for now --SQ heparine and ASA 325 mg daily 6- Lipitor up to 80 mg 9- Neuro check Q8 hours will follow Subjective Date of service: 01/23/21 Principal diagnosis: CVA Interval history: pt. had respiratory distress required intubation transferred to unit no MRI or CTA done Echo is pending Objective - Vital Sign Vital Signs - 12hr 01/23/21 01/23/21 01/23/21 02:27 04:29 08:07 Temperature 98.9 F 102.7 F H Pulse Rate 91 H Respiratory 20 16 Rate Blood Pressure 173/82 Blood Pressure 152/79 [Right] O2 Sat by Pulse 97 97 Oximetry 01/23/21 01/23/21 01/23/21 08:53 09:01 09:25 Temperature 99.5 F Pulse Rate Respiratory Rate Blood Pressure Blood Pressure [Right] O2 Sat by Pulse 94 96 Oximetry 01/23/21 01/23/21 10:00 12:00 Temperature 99 F 98.9 F Pulse Rate 75 Respiratory 16 Rate Blood Pressure Blood Pressure 135/65 [Right] O2 Sat by Pulse 92 Oximetry - General Apperance Constitutional: comfortable, other - EENT EENT: PERRL, mucous membranes moist - Respiratory Respiratory: chest non-tender, lungs clear - Cardiovascular Cardiovascular: other (irregular) Extremities: no peripheral edema bilat, no clubbing, cyanosis - Gastrointestinal Gastrointestinal: normoactive bowel sounds - Integumentary Integumentary: normal - Neurologic Cranial nerve examination: PERRL, EOMI Speech examination: other (intubated) Detailed motor examination: other (seems to be weaker on the left side) - Laboratory Findings CBC and BMP: 01/23/21 06:08 01/21/21 15:13 Abnormal Lab Findings: Abnormal Labs 01/20/21 01/20/21 01/20/21 19:26 19:26 23:20 Hgb 15.3 H Hct 45.8 H MCV 98 H MCH 33 H RDW Lymph % (Auto) 5.2 L [place] % (Auto) 10.4 H Lymph # (Auto) 0.3 L Seg Neutrophils % 82.9 H Seg Neuts % (Manual) Lymphocytes % (Manual) Lymphocytes # (Manual) INR Chloride 97.8 L Carbon Dioxide 33 H Creatinine Glucose 127 H POC Glucose Lactate Dehydrogenase 384 H C-Reactive Protein 2.70 H Cholesterol LDL Cholesterol Direct 01/21/21 01/21/21 01/21/21 00:17 05:45 05:45 Hgb 15.9 H Hct 47.9 H MCV 98 H MCH 33 H RDW 15.3 H Lymph % (Auto) [place] % (Auto) Lymph # (Auto) Seg Neutrophils % Seg Neuts % (Manual) 96.0 H Lymphocytes % (Manual) 3.0 L Lymphocytes # (Manual) 0.2 L INR Chloride 96.2 L Carbon Dioxide 35 H Creatinine 0.7 L Glucose 142 H POC Glucose 119 H Lactate Dehydrogenase C-Reactive Protein Cholesterol 210 H LDL Cholesterol Direct 155 H 01/21/21 01/21/21 01/21/21 05:56 09:33 15:13 Hgb Hct 45.8 H MCV 98 H MCH RDW Lymph % (Auto) [place] % (Auto) Lymph # (Auto) Seg Neutrophils % Seg Neuts % (Manual) Lymphocytes % (Manual) Lymphocytes # (Manual) INR Chloride Carbon Dioxide Creatinine Glucose POC Glucose 147 H 153 H Lactate Dehydrogenase C-Reactive Protein Cholesterol LDL Cholesterol Direct 01/21/21 01/21/21 01/22/21 15:13 16:33 01:53 Hgb Hct MCV MCH RDW Lymph % (Auto) [place] % (Auto) Lymph # (Auto) Seg Neutrophils % Seg Neuts % (Manual) Lymphocytes % (Manual) Lymphocytes # (Manual) INR 1.14 H Chloride Carbon Dioxide Creatinine Glucose POC Glucose 126 H 112 H Lactate Dehydrogenase C-Reactive Protein Cholesterol LDL Cholesterol Direct 01/22/21 01/22/21 01/22/21 06:06 12:05 16:51 Hgb Hct MCV MCH RDW Lymph % (Auto) [place] % (Auto) Lymph # (Auto) Seg Neutrophils % Seg Neuts % (Manual) Lymphocytes % (Manual) Lymphocytes # (Manual) INR Chloride Carbon Dioxide Creatinine Glucose POC Glucose 107 H 121 H 164 H Lactate Dehydrogenase C-Reactive Protein Cholesterol LDL Cholesterol Direct 01/22/21 01/23/21 01/23/21 23:10 05:39 06:08 Hgb Hct MCV 101 H MCH 33 H RDW Lymph % (Auto) [place] % (Auto) Lymph # (Auto) Seg Neutrophils % Seg Neuts % (Manual) Lymphocytes % (Manual) Lymphocytes # (Manual) INR Chloride Carbon Dioxide Creatinine Glucose POC Glucose 143 H 150 H Lactate Dehydrogenase C-Reactive Protein Cholesterol LDL Cholesterol Direct
[2021-01-23] MEDS ORDERED: HEPARIN 5,000 UNIT/1 ML VIAL SUB-Q SCH (14:00)
--- NOTE | 2021-01-23 14:30 | Procedure Note ---
Date of procedure: 01/23/21 Pre-op diagnosis: Hypotension Post-op diagnosis: same Procedure: right IJ placement After obtaining consent from over the phone and witnessed by nursing, using ultrasound guidance and seldinger technique, right IJ accessed and cannulated and catheter placed without difficulty. Biopatch placed and sutured in. CXR ordered and reviewed and line in good position with no PTX. Anesthesia: local Surgeon: VISHAL ARROYO Yarn Carrier: MARÍA ELENA DEJESUS Estimated blood loss: none Pathology: none Condition: critical Disposition: ICU
--- NOTE | 2021-01-23 14:38 | Consultation ---
History of Present Illness Consult date: 01/23/21 Requesting physician: KIARA MARIE History of present illness: 65 y/o male transferred from the floor for inability to protect airway and intub ation. Patient admitted with stroke like symptoms and then this am less responsive. Patient is also hypotensive on arrival. Past History Past Medical History: atrial fib, diabetes, hypertension Medications and Allergies Allergies Allergy/AdvReac Type Severity Reaction Status Date / Time No Known Allergies Allergy Unverified 01/20/21 19:59 Home Medications Medication Instructions Recorded Confirmed Last Taken Type Amlodipine Besylate [Norvasc] 10 mg PO DAILY 01/20/21 01/20/21 01/19/21 History Atorvastatin [Lipitor Tab] 80 mg PO DAILY 01/20/21 01/20/21 01/19/21 History Banophen Anti-Itch 25 mg PO DAILY 01/20/21 01/20/21 01/19/21 History Metformin HCl [metFORMIN ER 500 mg PO DAILY 01/20/21 01/20/21 01/19/21 History Osmotic] Metoprolol [Lopressor] 25 mg PO DAILY 01/20/21 01/20/21 01/19/21 History Active Meds: Active Medications Acetaminophen (Acetaminophen 325 Mg Tab) 650 mg PO Q4H PRN PRN Reason: Pain MILD(1-3)/Fever >100.5/[place] Last Admin: 01/21/21 05:34 Dose: 650 mg Documented by: Acetaminophen (Acetaminophen 650 Mg Rect Supp) 650 mg IN Q4H PRN PRN Reason: Pain, Mild (1-3) IF NPO Last Admin: 01/23/21 08:40 Dose: 650 mg Documented by: Albuterol (Albuterol 2.5 Mg/3 Ml Nebu) 2.5 mg IH Q4HRT PRN PRN Reason: Shortness Of Breath Amlodipine Besylate (Amlodipine 10 Mg Tab) 10 mg PO DAILY [facility] Last Admin: 01/23/21 10:31 Dose: Not Given Documented by: Aspirin (Aspirin 325 Mg Tab) 325 mg PO QDAY [facility] Last Admin: 01/23/21 10:32 Dose: Not Given Documented by: Atorvastatin Calcium (Atorvastatin 40 Mg Tab) 80 mg PO DAILY [facility] Last Admin: 01/23/21 10:32 Dose: Not Given Documented by: Dextrose (Dextrose 50% In Water (25gm) 50 Ml Syringe) 0 ml IV Q30MIN PRN; Protocol PRN Reason: Hypoglycemia Famotidine (Famotidine 20 Mg Tab) 20 mg PO BID [facility] Last Admin: 01/23/21 10:32 Dose: Not Given Documented by: Furosemide (Furosemide 40 Mg/4 Ml Inj) 40 mg IV QDAY [facility] Heparin Sodium (Porcine) (Heparin 5,000 Unit/1 Ml Vial) 5,000 unit SUB-Q Q8HR [facility] Hydralazine HCl (Hydralazine 20 Mg/1 Ml Inj) 10 mg IV Q6H PRN PRN Reason: htn Sodium Chloride (Nacl 0.9% 1000 Ml) 1,000 mls @ 75 mls/hr IV DIRECT [facility] Ceftriaxone Sodium (Rocephin/Ns 2 Gm/100 Ml) 2 gm in 100 mls @ 200 mls/hr IV QHS [facility]; Protocol Stop: 01/24/21 22:29 Last Admin: 01/22/21 21:04 Dose: 200 mls/hr Documented by: Azithromycin (Zithromax/Ns) 500 mg in 250 mls @ 250 mls/hr IV QHS [facility]; Protocol Stop: 01/24/21 22:59 Last Admin: 01/22/21 21:28 Dose: 250 mls/hr Documented by: Norepinephrine (Levophed Drip 4 Mg/Ns 250 Ml) 4 mg in 250 mls @ 7.5 mls/hr IV TITR [facility]; Protocol Insulin Human Lispro (Insulin Lispro 100 Unit/Ml) 0 unit SUB-Q Q6HR [facility]; Protocol Last Admin: 01/23/21 12:49 Dose: 3 unit Documented by: Labetalol HCl (Labetalol 20 Mg/4 Ml Inj) 10 mg IV Q5MIN PRN PRN Reason: to maintain SBP < 180 Lorazepam (Lorazepam 2 Mg/Ml Vial) 2 mg IV Q4H PRN PRN Reason: Agitation Metoprolol Tartrate (Metoprolol Tartrate 25 Mg Tab) 25 mg PO DAILY@0800 [facility] Last Admin: 01/23/21 09:21 Dose: Not Given Documented by: Ondansetron HCl (Ondansetron 4 Mg/2 Ml Inj) 4 mg IV Q8H PRN PRN Reason: Nausea And Vomiting Sodium Chloride (Sodium Chloride 0.9% 10 Ml Flush Syringe) 10 ml IV BID [facility] Last Admin: 01/23/21 10:32 Dose: 10 ml Documented by: Sodium Chloride (Sodium Chloride 0.9% 10 Ml Flush Syringe) 10 ml IV PRN PRN PRN Reason: LINE FLUSH Review of Systems ROS unobtainable: due to endotracheal tube, due to mental status Physical Examination Vital signs: Vital Signs Temp Pulse Resp BP Pulse Ox 101.2 F H 89 22 192/111 97 01/20/21 18:34 01/20/21 18:34 01/20/21 18:34 01/20/21 18:34 01/20/21 18:34 General appearance: comatose Eyes: non-icteric ENT: other (orally intubated, no sedation) Neck: supple Effort: normal Ascultation: Bilateral: diminished breath sounds Percussion: Bilateral: not dull Cardiovascular: irregular rhythm Gastrointestinal: soft Extremities: no edema, pulses normal Results - Laboratory Findings CBC and BMP: 01/25/21 04:35 01/25/21 04:35 ABG ABG pH 7.249 (7.320-7.450) L 01/23/21 13:55 POC ABG pCO2 83.0 mmHg (32.0-48.0) H 01/23/21 13:55 POC ABG pO2 82.8 mmHg (83-108) L 01/23/21 13:55 POC ABG HCO3 35.5 01/23/21 13:55 ABG O2 Saturation 95.4 (0-100) 01/23/21 13:55 PT/INR, D-dimer PT 14.5 Sec. (12.2-14.9) 01/21/21 15:13 INR 1.14 (0.87-1.13) H 01/21/21 15:13 D-Dimer 229.34 ng/mlDDU (0-234) 01/20/21 23:20 Abnormal lab findings: Abnormal Labs 01/20/21 01/20/21 01/20/21 19:26 19:26 23:20 Hgb 15.3 H Hct 45.8 H MCV 98 H MCH 33 H RDW Lymph % (Auto) 5.2 L [place] % (Auto) 10.4 H Lymph # (Auto) 0.3 L Seg Neutrophils % 82.9 H Seg Neuts % (Manual) Lymphocytes % (Manual) Lymphocytes # (Manual) INR ABG pH POC ABG pCO2 POC ABG pO2 ABG Potassium ABG Glucose Chloride 97.8 L Carbon Dioxide 33 H Creatinine Glucose 127 H POC Glucose Lactate Dehydrogenase 384 H C-Reactive Protein 2.70 H Cholesterol LDL Cholesterol Direct Arterial Blood Glucose Arterial Blood Ionized Calcium 01/21/21 01/21/21 01/21/21 00:17 05:45 05:45 Hgb 15.9 H Hct 47.9 H MCV 98 H MCH 33 H RDW 15.3 H Lymph % (Auto) [place] % (Auto) Lymph # (Auto) Seg Neutrophils % Seg Neuts % (Manual) 96.0 H Lymphocytes % (Manual) 3.0 L Lymphocytes # (Manual) 0.2 L INR ABG pH POC ABG pCO2 POC ABG pO2 ABG Potassium ABG Glucose Chloride 96.2 L Carbon Dioxide 35 H Creatinine 0.7 L Glucose 142 H POC Glucose 119 H Lactate Dehydrogenase C-Reactive Protein Cholesterol 210 H LDL Cholesterol Direct 155 H Arterial Blood Glucose Arterial Blood Ionized Calcium 01/21/21 01/21/21 01/21/21 05:56 09:33 15:13 Hgb Hct 45.8 H MCV 98 H MCH RDW Lymph % (Auto) [place] % (Auto) Lymph # (Auto) Seg Neutrophils % Seg Neuts % (Manual) Lymphocytes % (Manual) Lymphocytes # (Manual) INR ABG pH POC ABG pCO2 POC ABG pO2 ABG Potassium ABG Glucose Chloride Carbon Dioxide Creatinine Glucose POC Glucose 147 H 153 H Lactate Dehydrogenase C-Reactive Protein Cholesterol LDL Cholesterol Direct Arterial Blood Glucose Arterial Blood Ionized Calcium 01/21/21 01/21/21 01/22/21 15:13 16:33 01:53 Hgb Hct MCV MCH RDW Lymph % (Auto) [place] % (Auto) Lymph # (Auto) Seg Neutrophils % Seg Neuts % (Manual) Lymphocytes % (Manual) Lymphocytes # (Manual) INR 1.14 H ABG pH POC ABG pCO2 POC ABG pO2 ABG Potassium ABG Glucose Chloride Carbon Dioxide Creatinine Glucose POC Glucose 126 H 112 H Lactate Dehydrogenase C-Reactive Protein Cholesterol LDL Cholesterol Direct Arterial Blood Glucose Arterial Blood Ionized Calcium 01/22/21 01/22/21 01/22/21 06:06 12:05 16:51 Hgb Hct MCV MCH RDW Lymph % (Auto) [place] % (Auto) Lymph # (Auto) Seg Neutrophils % Seg Neuts % (Manual) Lymphocytes % (Manual) Lymphocytes # (Manual) INR ABG pH POC ABG pCO2 POC ABG pO2 ABG Potassium ABG Glucose Chloride Carbon Dioxide Creatinine Glucose POC Glucose 107 H 121 H 164 H Lactate Dehydrogenase C-Reactive Protein Cholesterol LDL Cholesterol Direct Arterial Blood Glucose Arterial Blood Ionized Calcium 01/22/21 01/23/21 01/23/21 23:10 05:39 06:08 Hgb Hct MCV 101 H MCH 33 H RDW Lymph % (Auto) [place] % (Auto) Lymph # (Auto) Seg Neutrophils % Seg Neuts % (Manual) Lymphocytes % (Manual) Lymphocytes # (Manual) INR ABG pH POC ABG pCO2 POC ABG pO2 ABG Potassium ABG Glucose Chloride Carbon Dioxide Creatinine Glucose POC Glucose 143 H 150 H Lactate Dehydrogenase C-Reactive Protein Cholesterol LDL Cholesterol Direct Arterial Blood Glucose Arterial Blood Ionized Calcium 01/23/21 13:55 Hgb Hct MCV MCH RDW Lymph % (Auto) [place] % (Auto) Lymph # (Auto) Seg Neutrophils % Seg Neuts % (Manual) Lymphocytes % (Manual) Lymphocytes # (Manual) INR ABG pH 7.249 L POC ABG pCO2 83.0 H POC ABG pO2 82.8 L ABG Potassium 4.8 H ABG Glucose 236 H Chloride Carbon Dioxide Creatinine Glucose POC Glucose Lactate Dehydrogenase C-Reactive Protein Cholesterol LDL Cholesterol Direct Arterial Blood Glucose 236 H Arterial Blood Ionized Calcium 4.5 L - Diagnostic Findings Chest x-ray: image reviewed Assessment and Plan 65 y/o male with acute respiratory failure secondary to altered mental state from possible stroke vs worsening stroke with hypotension requiring pressors. 1. Place central line 2. Place art line 3. Vasopressor therapy 4. No sedation as of right now 5. Consider repeat CT head 6. Guarded prognosis. CCT 31 minutes.
[2021-01-23] MEDS ORDERED: fentaNYL 250 MCG/5 ML INJ IV PRN (15:36)
[2021-01-23] MEDS: fentaNYL 100 MCG/2 ML INJ IV PRN ×2 (16:31→21:49)
--- NOTE | 2021-01-23 16:34 | Consultation ---
History of Present Illness Consult date: 01/23/21 Requesting physician: KIARA MARIE Consult reason: atrial fibrillation History of present illness: Target heart rate less than 100 was patient is a 65-year-old male with a significant medical history of A. fib on Eliquis, hypertension, diabetes. He is previously unknown to our practice. Patient presents to [facility] ER via EMS after chief complaint of progressively worsening general weakness and fever. Patient subsequently developed altered mental status and acute respiratory failure ultimately requiring intubation and sedation. Neurology is consulted after abnormal CT scan shows acute CVA versus encephalopathy. Neurology is consulted for history of A. fib Past History Past Medical History: atrial fib, diabetes, hypertension, other Medications and Allergies Allergies Allergy/AdvReac Type Severity Reaction Status Date / Time No Known Allergies Allergy Unverified 01/20/21 19:59 Home Medications Medication Instructions Recorded Confirmed Last Taken Type Amlodipine Besylate [Norvasc] 10 mg PO DAILY 01/20/21 01/20/21 01/19/21 History Atorvastatin [Lipitor Tab] 80 mg PO DAILY 01/20/21 01/20/21 01/19/21 History Banophen Anti-Itch 25 mg PO DAILY 01/20/21 01/20/21 01/19/21 History Metformin HCl [metFORMIN ER 500 mg PO DAILY 01/20/21 01/20/21 01/19/21 History Osmotic] Metoprolol [Lopressor] 25 mg PO DAILY 01/20/21 01/20/21 01/19/21 History Active Meds: Active Medications Acetaminophen (Acetaminophen 325 Mg Tab) 650 mg PO Q4H PRN PRN Reason: Pain MILD(1-3)/Fever >100.5/[place] Last Admin: 01/21/21 05:34 Dose: 650 mg Documented by: Acetaminophen (Acetaminophen 650 Mg Rect Supp) 650 mg MO Q4H PRN PRN Reason: Pain, Mild (1-3) IF NPO Last Admin: 01/23/21 08:40 Dose: 650 mg Documented by: Albuterol (Albuterol 2.5 Mg/3 Ml Nebu) 2.5 mg IH Q4HRT PRN PRN Reason: Shortness Of Breath Amlodipine Besylate (Amlodipine 10 Mg Tab) 10 mg PO DAILY [facility] Last Admin: 01/23/21 10:31 Dose: Not Given Documented by: Aspirin (Aspirin 325 Mg Tab) 325 mg PO QDAY [facility] Last Admin: 01/23/21 10:32 Dose: Not Given Documented by: Atorvastatin Calcium (Atorvastatin 40 Mg Tab) 80 mg PO DAILY [facility] Last Admin: 01/23/21 10:32 Dose: Not Given Documented by: Dextrose (Dextrose 50% In Water (25gm) 50 Ml Syringe) 0 ml IV Q30MIN PRN; Protocol PRN Reason: Hypoglycemia Famotidine (Famotidine 20 Mg Tab) 20 mg PO BID [facility] Last Admin: 01/23/21 10:32 Dose: Not Given Documented by: Fentanyl (Fentanyl 100 Mcg/2 Ml Inj) 50 mcg IV Q2H PRN PRN Reason: Pain , Severe (7-10) Furosemide (Furosemide 40 Mg/4 Ml Inj) 40 mg IV QDAY [facility] Hydralazine HCl (Hydralazine 20 Mg/1 Ml Inj) 10 mg IV Q6H PRN PRN Reason: htn Sodium Chloride (Nacl 0.9% 1000 Ml) 1,000 mls @ 75 mls/hr IV DIRECT [facility] Ceftriaxone Sodium (Rocephin/Ns 2 Gm/100 Ml) 2 gm in 100 mls @ 200 mls/hr IV QHS [facility]; Protocol Stop: 01/24/21 22:29 Last Admin: 01/22/21 21:04 Dose: 200 mls/hr Documented by: Azithromycin (Zithromax/Ns) 500 mg in 250 mls @ 250 mls/hr IV QHS [facility]; Protocol Stop: 01/24/21 22:59 Last Admin: 01/22/21 21:28 Dose: 250 mls/hr Documented by: Norepinephrine (Levophed Drip 4 Mg/Ns 250 Ml) 4 mg in 250 mls @ 7.5 mls/hr IV TITR [facility]; Protocol Insulin Human Lispro (Insulin Lispro 100 Unit/Ml) 0 unit SUB-Q Q6HR [facility]; Carlos col Last Admin: 01/23/21 12:49 Dose: 3 unit Documented by: Labetalol HCl (Labetalol 20 Mg/4 Ml Inj) 10 mg IV Q5MIN PRN PRN Reason: to maintain SBP < 180 Lorazepam (Lorazepam 2 Mg/Ml Vial) 2 mg IV Q4H PRN PRN Reason: Agitation Metoprolol Tartrate (Metoprolol Tartrate 25 Mg Tab) 25 mg PO DAILY@0800 [facility] Last Admin: 01/23/21 09:21 Dose: Not Given Documented by: Ondansetron HCl (Ondansetron 4 Mg/2 Ml Inj) 4 mg IV Q8H PRN PRN Reason: Nausea And Vomiting Sodium Chloride (Sodium Chloride 0.9% 10 Ml Flush Syringe) 10 ml IV BID [facility] Last Admin: 01/23/21 10:32 Dose: 10 ml Documented by: Sodium Chloride (Sodium Chloride 0.9% 10 Ml Flush Syringe) 10 ml IV PRN PRN PRN Reason: LINE FLUSH Review of Systems ROS unobtainable: due to endotracheal tube (See HPI), due to mental status Physical Examination Last Vital Signs Temp 98.9 F 01/23/21 12:00 Pulse 75 01/23/21 10:00 Resp 16 01/23/21 10:00 BP 135/65 01/23/21 10:00 Pulse Ox 92 01/23/21 10:00 General appearance: other (Intubated) HEENT: Positive: Other (Intubated) Neck: Positive: neck supple, trachea midline Cardiac: Positive: irregularly irregular, S1/S2 Lungs: Positive: Ventilated Respirations Neuro: Positive: Other (Intubated) Abdomen: Positive: Unremarkable, Soft Skin: Negative: Rash, Wound Musculoskeletal: other (Intubated) Extremities: Present: upper extr. pulses, lower extr. pulses. Absent: edema Results 01/23/21 06:08 01/21/21 15:13 CBC 01/23/21 Range/Units 06:08 WBC 7.7 (4.5-11.0) K/mm3 RBC 4.52 (3.65-5.03) M/mm3 Hgb 14.8 (11.8-15.2) gm/dl Hct 45.5 (35.5-45.6) % Plt Count 236 (140-440) K/mm3 - Imaging and Cardiology Echo: pending EKG: report reviewed, image reviewed EKG interpretations - Telemetry EKG Rhythm: Atrial Flutter - EKG Supraventricular dysrhythmia: atrial fibrillation Assessment and Plan Telemetry reviewed: A flutter 60s, low of 38. No events #A. fib with CVR * Eliquis currently on hold per neurology recommendations. Will resume AC once medically stabilized and cleared by neurology. * Patient is currently rate controlled in the 60s with low of 38 and requiring vasopressor support. Optimize rate control: Discontinue metoprolol 25 mg, discontinue amlodipine 10 mg daily. #Altered mental status in setting of acute CVA versus encephalopathy * Neurology was consulted for abnormal CT scan. MRI brain is recommended but unable to perform until patient is medically stabilized. * Currently altered mental status with recurrent seizure activity #Acute respiratory failure with hypoxia * Currently intubated and sedated #DVT prophylaxis * Heparin SQ every 8 hours We will follow This patient was seen in conjunction with Dr Brooke Arndt agrees with assessment and plan of care - Patient Problems (1) Encephalopathy Current Visit: Yes Status: Acute (2) A-fib Current Visit: Yes Status: Acute (3) Diabetes Current Visit: Yes Status: Acute (4) Pneumonia Current Visit: Yes Status: Acute (5) Suspected 2019 novel coronavirus infection Current Visit: Yes Status: Acute
[2021-01-23] MEDS: NORepinephrine/NS 4 MG-250 ML 4 MG/250 ML BAG IV SCH (16:40)
[2021-01-23] MEDS: LORazepam 2 MG/ML VIAL IV PRN ×2 (17:01→21:31)
[2021-01-23 18:52] LABS: Albumin 3.2 g/dL (3.9-5); Calcium 8.3 mg/dL (8.4-10.2)
[2021-01-23] MEDS: AZITHROMYCIN/NS 500 MG/250 ML 500 MG/250 ML BAG IV SCH (21:31)
[2021-01-23] MEDS: HEPARIN 5,000 UNIT/1 ML VIAL SUB-Q SCH (21:31)
[2021-01-23] MEDS: cefTRIAXone/NS 2 GM/100 ML 2 GM/100 ML BAG IV SCH (21:31)
[2021-01-24] MEDS: fentaNYL 100 MCG/2 ML INJ IV PRN ×2 (04:19→10:57)
[2021-01-24] MEDS: LORazepam 2 MG/ML VIAL IV PRN (04:20)
[2021-01-24 05:29] LABS: Hematocrit 44.7 % (35.5-45.6); Hemoglobin 14.5 gm/dl (11.8-15.2); Mean Corpuscular HGB Conc 32 % (32-34); Mean Corpuscular Volume 100 fl (84-94); Platelet Count 199 K/mm3 (140-440); Red Blood Count 4.47 M/mm3 (3.65-5.03); Red Cell Distribution Width 15.4 % (13.2-15.2)
[2021-01-24] MEDS: ACETAMINOPHEN 650 MG RECT SUPP PR PRN (05:34)
[2021-01-24] MEDS: INSULIN LISPRO 100 UNIT/ML SUB-Q SCH ×4 (05:34→18:41)
[2021-01-24] MEDS: NORepinephrine/NS 4 MG-250 ML 4 MG/250 ML BAG IV SCH (05:35)
[2021-01-24 05:47] LABS: Calcium 8.3 mg/dL (8.4-10.2)
[2021-01-24] MEDS: HEPARIN 5,000 UNIT/1 ML VIAL SUB-Q SCH ×3 (06:07→21:32)
[2021-01-24] MEDS ORDERED: SIMPLE SYRUP 15 ML FEEDTUBE PRN ×2 (08:04)
[2021-01-24] MEDS ORDERED: LIPASE 10,500/PROTEASE 25,000/AMYLASE 43,750 (UNITS) DR CAP FEEDTUBE PRN (08:04)
[2021-01-24] MEDS ORDERED: SODIUM BICARBONATE 325 MG TAB FEEDTUBE PRN (08:04)
--- NOTE | 2021-01-24 09:12 | XRay Report ---
ABDOMEN 1 VIEW(S) 01/24/2021 7:58 AM INDICATION: NGT placement. COMPARISON: Chest radiograph 01/24/2021 FINDINGS: The tip of the nasogastric tube projects over the gastric lumen with its sidehole near the distal GE junction. Advancement 6 cm is recommended.. Signer Name: Dereck Herrera MD Signed: 01/24/2021 9:08 AM Workstation Name: [id number]
--- NOTE | 2021-01-24 09:29 | XRay Report ---
CHEST 1 VIEW 01/24/2021 7:57 AM INDICATION / CLINICAL INFORMATION: resp failure. COMPARISON: 01/23/2021 FINDINGS: SUPPORT DEVICES: Interval placement of NG tube with its side port projected at the distal GE junction . Additional medical devices are stable position. HEART / MEDIASTINUM: Stable. LUNGS / PLEURA: Mild increased diffuse opacities bilaterally. No confluent infiltrate. No pneumothora x. ADDITIONAL FINDINGS: No significant additional findings. IMPRESSION: 1. Minimally increased diffuse bilateral opacities, likely represents interstitial edema. 2. Interval placement of NG tube. Needs advancement approximately 6 cm for appropriate positioning. 3. Additional medical devices are in stable position. Signer Name: Dereck Herrera MD Signed: 01/24/2021 9:25 AM Workstation Name: [id number]
[2021-01-24] MEDS ORDERED: MAGNESIUM SULFATE 2 GM/50 ML BAG IV ONE (10:57)
[2021-01-24] MEDS: FUROSEMIDE 40 MG/4 ML INJ IV SCH (10:58)
[2021-01-24] MEDS: FAMOTIDINE 20 MG/2 ML INJ IV SCH ×2 (10:58→21:32)
--- NOTE | 2021-01-24 11:06 | Progress Note ---
Assessment and Plan Assessment and plan: This is a 65-year-old male with atrial fibrillation on Eliquis, hypertension, and diabetes who is admitted with suspected pneumonia, acute hypoxic respiratory failure, COVID-19 PUI, rule out CVA and with hypertensive urgency Acute hypoxic respiratory failure Acute CVA (? Right parietal lobe infarct) Shock/hypotension Seizure Right middle and lower lobe pneumonia Acute metabolic encephalopathy Hypertensive urgency Type 2 diabetes Atrial fibrillation Hypophosphatemia -CCM, cardiology, neurology consulted, appreciate recommendations -01/20 CT head shows a well-defined area of decreased attenuation in the right parietal lobe, limited imagery secondary to artifact. MRI brain recommended for further work-up -01/20 CT chest shows possible mild inflammatory process in the right middle and right lower lobe -01/23 CXR shows right infrahilar opacity consistent with large areas of atelectasis of the right middle or lower lobe. -01/24 CXR shows minimally increased diffuse bilateral opacities which likely represents interstitial edema -MRI brain pending -CT head pending -CTA neck/head pending -EEG pending -Intubated 01/23 -VAP bundle, wean mechanical ventilation as tolerated -IV antibiotics -Aspirin, Lipitor -Sedated with propofol -Vasopressor support with Levophed -Hold antihypertensive regimen and setting of needing vasopressor support, resume as tolerated -Neurochecks per protocol -Accu-Cheks every 6, SSI -Trend BMP, Phos, CBC -Seizure precautions -Tube feedings DVT/GI prophylaxis: Heparin subcu, PPI Disposition: ICU The high probability of a clinically significant, sudden or life threatening deterioration of the [Respiratory, neuro, metabolic, infectious,] system(s) required my full and direct attention, intervention and personal management. The aggregate critical care time was [35] minutes. This time is in addition to time spent performing reported procedures but includes the following: [x] Data Review and interpretation [x] Patient assessment and monitoring of vital signs [x] Documentation [x] Medication orders and management History Interval history: This is a 65-year-old male with atrial fibrillation on Eliquis, hypertension, and diabetes who presents to the emergency on 01/20 with complaints of p rogressive generalized weakness, gait unsteadiness, cough and fever. Upon EMS arrival patient was febrile with a temperature of 102 and hypoxic with SPO2 in the 70s on room air. Work-up in the emergency department included a CT scan of his chest which showed possible mild inflammatory process in his right middle and lower lobe, CT head was admitted secondary to artifact but noted a low- density area in the right parietal lobe. Patient was admitted to the hospitalist service with suspected pneumonia, acute hypoxic respiratory failure, COVID-19 PUI, rule out CVA and with hypertensive urgency. Neurology was consulted. 01/22/2021; neuro work-up is in progress, follow PT OT eval. Neurology consult, continue antibiotics and supportive care 01/23/2021; patient went into acute respiratory failure requiring intubation and ventilatory support. Patient is transferred to ICU, pulmonary critical co nsulted, hypotensive started on Levophed. Pulmonary critical, cardiology and neurology following the patient. updated by Dr. Cho 01/24: Patient is awaiting further neuro imaging and is restrained the time my examination. Patient is not sedated and on assist control tidal volume 500, rate of 24, PEEP of 8 on FiO2 70%. Patient is severely agitated and is started on propofol drip per CCM. She has hypophosphatemia today which was repleted. We will repeat BMP and phosphate level in the a.m. Hospitalist Physical - Constitutional Vitals: Temp Pulse Resp BP Pulse Ox 99.6 F 71 24 97/61 98 01/24/21 08:00 01/24/21 09:51 01/24/21 09:51 01/24/21 09:51 01/24/21 09:51 General appearance: Present: no acute distress, well-nourished, obese, other (Agitated on mechanical ventilation) - EENT Eyes: Present: PERRL ENT: dentition normal - Neck Neck: Present: normal ROM - Respiratory Respiratory effort: normal Respiratory: bilateral: diminished - Cardiovascular Rhythm: irregularly irregular Heart Sounds: Present: S1 & S2. Absent: systolic murmur, diastolic murmur - Extremities Extremities: no ischemia, pulses intact, pulses symmetrical, No edema, normal temperature, normal color Peripheral Pulses: within normal limits - Abdominal General gastrointestinal: soft, non-tender, normal bowel sounds - Integumentary Integumentary: Present: warm, dry - Psychiatric Psychiatric: agitated - Neurologic Neurologic: no focal deficits, moves all extremities, other (does not follow commands, agitated, B wrist restriants) - Allied Health Allied health notes reviewed: nursing, RT, social work HEART Score - HEART Score Troponin: Troponin T < 0.010 ng/mL (0.00-0.029) 01/20/21 19:26 Results - Labs CBC & Chem 7: 01/24/21 04:56 01/24/21 04:56 Labs: Laboratory Last Values WBC 8.1 K/mm3 (4.5-11.0) 01/24/21 04:56 RBC 4.47 M/mm3 (3.65-5.03) 01/24/21 04:56 Hgb 14.5 gm/dl (11.8-15.2) 01/24/21 04:56 Hct 44.7 % (35.5-45.6) 01/24/21 04:56 MCV 100 fl (84-94) H 01/24/21 04:56 MCH 32 pg (28-32) 01/24/21 04:56 MCHC 32 % (32-34) 01/24/21 04:56 RDW 15.4 % (13.2-15.2) H 01/24/21 04:56 Plt Count 199 K/mm3 (140-440) 01/24/21 04:56 Lymph % (Auto) 5.2 % (13.4-35.0) L 01/20/21 19:26 Edgar % (Auto) 10.4 % (0.0-7.3) H 01/20/21 19:26 Eos % (Auto) 0.5 % (0.0-4.3) 01/20/21 19:26 Baso % (Auto) 1.0 % (0.0-1.8) 01/20/21 19:26 Lymph # (Auto) 0.3 K/mm3 (1.2-5.4) L 01/20/21 19:26 Edgar # (Auto) 0.7 K/mm3 (0.0-0.8) 01/20/21 19:26 Eos # (Auto) 0.0 K/mm3 (0.0-0.4) 01/20/21 19:26 Baso # (Auto) 0.1 K/mm3 (0.0-0.1) 01/20/21 19:26 Add Manual Diff Complete 01/21/21 05:45 Total Counted 100 01/21/21 05:45 Seg Neutrophils % Profiler Operator 01/21/21 05:45 Seg Neuts % (Manual) 96.0 % (40.0-70.0) H 01/21/21 05:45 Lymphocytes % (Manual) 3.0 % (13.4-35.0) L 01/21/21 05:45 Monocytes % (Manual) 1.0 % (0.0-7.3) 01/21/21 05:45 Nucleated RBC % Not Reportable 01/21/21 05:45 Seg Neutrophils # 5.3 K/mm3 (1.8-7.7) 01/20/21 19:26 Seg Neutrophils # Man 6.8 K/mm3 (1.8-7.7) 01/21/21 05:45 Band Neutrophils # 0.0 K/mm3 01/21/21 05:45 Lymphocytes # (Manual) 0.2 K/mm3 (1.2-5.4) L 01/21/21 05:45 Abs React Lymphs (Man) 0.0 K/mm3 01/21/21 05:45 Monocytes # (Manual) 0.1 K/mm3 (0.0-0.8) 01/21/21 05:45 Eosinophils # (Manual) 0.0 K/mm3 (0.0-0.4) 01/21/21 05:45 Basophils # (Manual) 0.0 K/mm3 (0.0-0.1) 01/21/21 05:45 Metamyelocytes # 0.0 K/mm3 01/21/21 05:45 Myelocytes # 0.0 K/mm3 01/21/21 05:45 Promyelocytes # 0.0 K/mm3 01/21/21 05:45 Blast Cells # 0.0 K/mm3 01/21/21 05:45 WBC Morphology Not Reportable 01/21/21 05:45 Hypersegmented Neuts Not Reportable 01/21/21 05:45 Hyposegmented Neuts Not Reportable 01/21/21 05:45 Hypogranular Neuts Not Reportable 01/21/21 05:45 Smudge Cells Not Reportable 01/21/21 05:45 Toxic Granulation Not Reportable 01/21/21 05:45 Toxic Vacuolation Not Reportable 01/21/21 05:45 Dohle Bodies Not Reportable 01/21/21 05:45 Pelger-Huet Anomaly Not Reportable 01/21/21 05:45 Masood Rods Not Reportable 01/21/21 05:45 Platelet Estimate Consistent w auto 01/21/21 05:45 Clumped Platelets Not Reportable 01/21/21 05:45 Plt Clumps, EDTA Not Reportable 01/21/21 05:45 Large Platelets Not Reportable 01/21/21 05:45 Giant Platelets Not Reportable 01/21/21 05:45 Platelet Satelliting Not Reportable 01/21/21 05:45 Plt Morphology Comment Not Reportable 01/21/21 05:45 RBC Morphology Normal 01/21/21 05:45 Dimorphic RBCs Not Reportable 01/21/21 05:45 Polychromasia Not Reportable 01/21/21 05:45 Hypochromasia Not Reportable 01/21/21 05:45 Poikilocytosis Not Reportable 01/21/21 05:45 Anisocytosis Not Reportable 01/21/21 05:45 Microcytosis Not Reportable 01/21/21 05:45 Macrocytosis Not Reportable 01/21/21 05:45 Spherocytes Not Reportable 01/21/21 05:45 Pappenheimer Bodies Not Reportable 01/21/21 05:45 Sickle Cells Not Reportable 01/21/21 05:45 Target Cells Not Reportable 01/21/21 05:45 Tear Drop Cells Not Reportable 01/21/21 05:45 Ovalocytes Not Reportable 01/21/21 05:45 Helmet Cells Not Reportable 01/21/21 05:45 Ramírez-Fellows Bodies Not Reportable 01/21/21 05:45 [place] Rings Not Reportable 01/21/21 05:45 [place] Cells Not Reportable 01/21/21 05:45 Bite Cells Not Reportable 01/21/21 05:45 Crenated Cell Not Reportable 01/21/21 05:45 Elliptocytes Not Reportable 01/21/21 05:45 Acanthocytes (Spur) Not Reportable 01/21/21 05:45 Rouleaux Not Reportable 01/21/21 05:45 Hemoglobin C Crystals Not Reportable 01/21/21 05:45 Schistocytes Not Reportable 01/21/21 05:45 Malaria parasites Not Reportable 01/21/21 05:45 Roney Bodies Not Reportable 01/21/21 05:45 Hem Pathologist Commnt No 01/21/21 05:45 PT 14.5 Sec. (12.2-14.9) 01/21/21 15:13 INR 1.14 (0.87-1.13) H 01/21/21 15:13 APTT 30.5 Sec. (24.2-36.6) 01/21/21 15:13 D-Dimer 229.34 ng/mlDDU (0-234) 01/20/21 23:20 ABG pH 7.473 (7.320-7.450) H 01/24/21 05:00 POC ABG pCO2 42.5 mmHg (32.0-48.0) 01/24/21 05:00 POC ABG pO2 53.9 mmHg (83-108) L 01/24/21 05:00 POC ABG HCO3 30.4 01/24/21 05:00 ABG O2 Saturation 91.1 (0-100) 01/24/21 05:00 POC ABG Base Excess 6.2 01/24/21 05:00 ABG Hemoglobin 13.0 (12.0-17.5) 01/24/21 05:00 ABG Oxyhemoglobin 90.0 (94-98) L 01/24/21 05:00 ABG Methemoglobin 0.3 (0.0-1.5) 01/24/21 05:00 ABG Sodium 140.8 mmol/L (136.0-145.0) 01/24/21 05:00 ABG Potassium 4.0 mmol/L (3.40-4.50) 01/24/21 05:00 ABG Chloride 102.0 mmol/L (98-107) 01/24/21 05:00 ABG Glucose 127 mg/dL (65-95) H 01/24/21 05:00 Carboxyhemoglobin 0.9 (0.5-1.5) 01/24/21 05:00 FiO2 % 80.0 01/24/21 05:00 Sodium 147 mmol/L (137-145) H D 01/24/21 04:56 Potassium 4.6 mmol/L (3.6-5.0) 01/24/21 04:56 Chloride 103.4 mmol/L (98-107) 01/24/21 04:56 Carbon Dioxide 36 mmol/L (22-30) H 01/24/21 04:56 Anion Gap 12 mmol/L 01/24/21 04:56 BUN 33 mg/dL (9-20) H 01/24/21 04:56 Creatinine 1.5 mg/dL (0.8-1.3) H 01/24/21 04:56 Estimated GFR 57 ml/min 01/24/21 04:56 BUN/Creatinine Ratio 22 % 01/24/21 04:56 Glucose 128 mg/dL (75-100) H 01/24/21 04:56 POC Glucose 141 mg/dL (70-105) H 01/24/21 05:47 Lactic Acid 1.50 mmol/L (0.7-2.0) 01/20/21 19:26 Calcium 8.3 mg/dL (8.4-10.2) L 01/24/21 04:56 Phosphorus 1.40 mg/dL (2.5-4.5) L D 01/24/21 08:44 Magnesium 2.90 mg/dL (1.7-2.3) H 01/24/21 08:44 Ferritin 128.4 ng/mL (30.0-300.0) 01/20/21 23:20 Total Bilirubin 0.80 mg/dL (0.1-1.2) 01/23/21 17:54 AST 35 units/L (5-40) 01/23/21 17:54 ALT 31 units/L (7-56) 01/23/21 17:54 Alkaline Phosphatase 78 units/L (35-129) 01/23/21 17:54 Ammonia 58.0 umol/L (25-60) 01/22/21 14:19 Lactate Dehydrogenase 384 units/L (91-180) H 01/20/21 23:20 Troponin T < 0.010 ng/mL (0.00-0.029) 01/20/21 19:26 C-Reactive Protein 2.70 mg/dL (0.00-1.30) H 01/20/21 23:20 Total Protein 6.4 g/dL (6.3-8.2) 01/23/21 17:54 Albumin 3.2 g/dL (3.9-5) L 01/23/21 17:54 Albumin/Globulin Ratio 1.0 % 01/23/21 17:54 Triglycerides 49 mg/dL (2-149) 01/21/21 05:45 Cholesterol 210 mg/dL (50-199) H 01/21/21 05:45 LDL Cholesterol Direct 155 mg/dL (50-130) H 01/21/21 05:45 HDL Cholesterol 57 mg/dL (40-59) 01/21/21 05:45 Cholesterol/HDL Ratio 3.68 % 01/21/21 05:45 Procalcitonin 0.13 ng/mL (<0.15) 01/20/21 23:20 Arterial Blood Glucose 127 mg/dL (65-95) H 01/24/21 05:00 Arterial Blood Ionized Calcium 4.5 mg/dL (4.6-5.3) L 01/24/21 05:00 Urine Color Yellow (Yellow) 01/20/21 Unknown Urine Turbidity Clear (Clear) 01/20/21 Unknown Urine pH 6.0 (5.0-7.0) 01/20/21 Unknown Ur Specific [place] 1.022 (1.003-1.030) 01/20/21 Unknown Urine Protein >500 mg/dL (Negative) 01/20/21 Unknown Urine Glucose (UA) Neg mg/dL (Negative) 01/20/21 Unknown Urine Ketones Neg mg/dL (Negative) 01/20/21 Unknown Urine Blood Neg (Negative) 01/20/21 Unknown Urine Nitrite Neg (Negative) 01/20/21 Unknown Urine Bilirubin Neg (Negative) 01/20/21 Unknown Urine Urobilinogen < 2.0 mg/dL (<2.0) 01/20/21 Unknown Ur Leukocyte Esterase Neg (Negative) 01/20/21 Unknown Urine WBC (Auto) 1.0 /HPF (0.0-6.0) 01/20/21 Unknown Urine RBC (Auto) 4.0 /HPF (0.0-6.0) 01/20/21 Unknown U Epithel Cells (Auto) < 1.0 /HPF (0-13.0) 01/20/21 Unknown Coronavirus (PCR) Negative (Negative) 01/21/21 Unknown Microbiology: Microbiology 01/20/21 19:26 Peripheral/Venous Blood Culture - Preliminary NO GROWTH AFTER 72 HOURS 01/20/21 19:26 Peripheral/Venous Blood Culture - Preliminary NO GROWTH AFTER 72 HOURS Wilde/IV: Voiding Method Condom Catheter Active Medications - Current Medications Current Medications: Generic Name Dose Route Start Last Admin Trade Name Freq PRN Reason Stop Dose Admin Acetaminophen 650 mg 01/20/21 23:38 01/21/21 05:34 Acetaminophen 325 Mg Tab PO 650 mg Q4H PRN Administration Pain MILD(1-3)/Fever >100.5/GIB[place]ONS Acetaminophen 650 mg 01/23/21 08:23 01/24/21 05:34 Acetaminophen 650 Mg Rect Supp OR 650 mg Q4H PRN Administration Pain, Mild (1-3) IF NPO Albuterol 2.5 mg 01/20/21 23:38 Albuterol 2.5 Mg/3 Ml Nebu IH Q4HRT PRN Shortness Of Breath Lipase/Protease/Amylase 1 each 01/24/21 08:04 Lipase 10,500/Protease 25,000/Amylase 43,750 (Units) Dr Anguiano FEEDTUBE PRN PRN For Clogged Feeding Tube Aspirin 325 mg 01/21/21 10:00 01/23/21 10:32 Aspirin 325 Mg Tab PO Not Given QDAY NGUYEN Atorvastatin Calcium 80 mg 01/21/21 10:00 01/23/21 10:32 Atorvastatin 40 Mg Tab PO Not Given DAILY NGUYEN Dextrose 0 ml 01/20/21 23:38 Dextrose 50% In Water (25gm) 50 Ml Syringe IV Q30MIN PRN Hypoglycemia Protocol Famotidine 20 mg 01/24/21 10:00 01/24/21 10:58 Famotidine 20 Mg/2 Ml Inj IV 20 mg BID NGUYEN Administration Fentanyl 50 mcg 01/23/21 16:00 01/24/21 10:57 Fentanyl 100 Mcg/2 Ml Inj IV 50 mcg Q2H PRN Administration Pain , Severe (7-10) Furosemide 40 mg 01/24/21 10:00 01/24/21 10:58 Furosemide 40 Mg/4 Ml Inj IV 40 mg QDAY NGUYEN Administration Heparin Sodium (Porcine) 5,000 unit 01/23/21 22:00 01/24/21 06:07 Heparin 5,000 Unit/1 Ml Vial SUB-Q 5,000 unit Q8HR NGUYEN Administration Hydralazine HCl 10 mg 01/20/21 23:46 Hydralazine 20 Mg/1 Ml Inj IV Q6H PRN htn Ceftriaxone Sodium 2 gm in 100 mls @ 200 mls/hr 01/21/21 22:00 01/23/21 21:31 Rocephin/Ns 2 Gm/100 Ml IV 01/24/21 22:29 200 mls/hr QHS [facility] Administration Protocol Azithromycin 500 mg in 250 mls @ 250 mls/hr 01/21/21 22:00 01/23/21 21:31 Zithromax/Ns IV 01/24/21 22:59 250 mls/hr QHS [facility] Administration Protocol Norepinephrine 4 mg in 250 mls @ 7.5 mls/hr 01/23/21 13:00 01/24/21 08:51 Levophed Drip 4 Mg/Ns 250 Ml IV 0 mcg/min TITR NGUYEN 0 mls/hr Titration Protocol 2 MCG/MIN Propofol 1,000 mg in 100 mls @ 3.468 mls/hr 01/24/21 11:00 01/24/21 10:45 Diprivan 10 Mg/Ml IV 5 mcg/kg/min TITR NGUYEN 3.468 mls/hr Administration Protocol 5 MCG/KG/MIN Sodium Phosphate 15 mmol/ 155 mls @ 40 mls/hr 01/24/21 11:01 Sodium Chloride IV 01/24/21 14:53 Q4H ONE Insulin Human Lispro 0 unit 01/21/21 00:00 01/24/21 06:06 Insulin Lispro 100 Unit/Ml SUB-Q Not Given Q6HR [facility] Protocol Lorazepam 2 mg 01/23/21 12:22 01/24/21 04:20 Lorazepam 2 Mg/Ml Vial IV 2 mg Q4H PRN Administration Agitation Ondansetron HCl 4 mg 01/20/21 23:38 Ondansetron 4 Mg/2 Ml Inj IV Q8H PRN Nausea And Vomiting Simple Syrup 15 ml 01/24/21 08:04 Simple Syrup 15 Ml FEEDTUBE PRN PRN Hypoglycemia Simple Syrup 30 ml 01/24/21 08:04 Simple Syrup 15 Ml FEEDTUBE PRN PRN Hypoglycemia Sodium Bicarbonate 325 mg 01/24/21 08:04 Sodium Bicarbonate 325 Mg Tab FEEDTUBE PRN PRN For Clogged Feeding Tube Sodium Chloride 10 ml 01/21/21 10:00 01/24/21 11:01 Sodium Chloride 0.9% 10 Ml Flush Syringe IV 10 ml BID NGUYEN Administration Sodium Chloride 10 ml 01/20/21 23:38 Sodium Chloride 0.9% 10 Ml Flush Syringe IV PRN PRN LINE FLUSH Nutrition/Malnutrition Assess - Dietary Evaluation Nutrition/Malnutrition Findings: Nutrition Notes Start: 01/21/21 11:45 Freq: Status: Active Protocol: Document 01/24/21 07:54 MK (Rec: 01/24/21 08:03 MK [id number]) Nutrition Notes Need for Assessment generated from: MD Order Initial or Follow up Assessment Current Diagnosis Diabetes,Hypertension, Respiratory Failure Other Pertinent Diagnosis encephalopathy, pneu Current Diet NPO Labs/Tests Na 147 BUN 33 Cr 1.5 Pertinent Medications Levophed Height 5 ft 9 in Weight 115.6 kg [place] Body Weight (kg) 72.72 BMI 37.6 Weight Status Morbidly Obese Subjective/Other Information MD order for TF. Pt now intubated. Burn Absent Trauma Absent Current % PO Negligible Minimum of two criteria No Fluid Accumulation Mild (non-severe) #1 Nutrition Diagnosis Inadequate oral intake Etiology ARF As Evidenced by Signs and Symptoms pt on vent and unable to consume PO Is patient on ventilator? Yes Is Patient Ambulatory and/or Out of Bed No REE-([facility]-confined to bed) [phone] Kcal/Kg value to use for calculation 16 Approximate Energy Requirements Using 1850 kcal/Kg Calculation Used for Recommendations Kcal/kg Additional Notes Protein: (>2.5g/kg IBW) >182g Fluid: 1 ml/kcal or per MD Nutrition Intervention Change Diet Order: Start TF Nutrition Support: Vital AF 1.2 at 65 ml/hr Flush 200 ml q4h for hypernatermia. Once resolved, flush 100 ml q4h. Kcal 1,872 Protein (gm) 117 Fluid (mL) 1,265 Goal #1 Meet at least 75% of kcal needs and 60% of protein needs via TF Anticipated Discharge Needs: Unable to determine at this time Follow-Up By: 01/28/21 Additional Comments FU for TF start and tolerance
--- NOTE | 2021-01-24 11:09 | Progress Note ---
Assessment and Plan 65 y/o male with acute respiratory failure secondary to altered mental state from possible stroke vs worsening stroke with hypotension requiring pressors. 1. Off pressors. 2. Will increase PEEP to 10 and recheck ABG This afternoon. 3. Needs repeat Cultures, most likely neuro but will check given changes. 4. Unable to get MRI as pump for this is broken 5. Needs repeat Head CT 6. Follow up neuro recs 7. Guarded prognosis. CCT 31 minutes. Subjective Date of service: 01/24/21 Principal diagnosis: CVA Interval history: continues to spike temps. High as 102.7. Currently on 70% but only 6 of PEEP. Remains unresponsive but will move extremities. Does not follow commands. Of pressors since earlier this morning. Remainder is negative. Objective Vital Signs - 12hr 01/23/21 01/23/21 01/23/21 23:01 23:10 23:21 Temperature Pulse Rate 60 59 L 64 Pulse Rate [ From Monitor] Respiratory 24 24 24 Rate Blood Pressure 128/74 133/74 141/73 O2 Sat by Pulse 100 100 100 Oximetry 01/23/21 01/23/21 01/23/21 23:31 23:34 23:40 Temperature Pulse Rate 63 60 59 L Pulse Rate [ From Monitor] Respiratory 24 24 Rate Blood Pressure 139/80 147/79 153/72 O2 Sat by Pulse 100 100 100 Oximetry 01/23/21 01/24/21 01/24/21 23:51 00:00 00:01 Temperature 102.5 F H Pulse Rate 63 58 L 64 Pulse Rate [ From Monitor] Respiratory 24 24 Rate Blood Pressure 139/77 143/78 O2 Sat by Pulse 100 100 Oximetry 01/24/21 01/24/21 01/24/21 00:10 00:20 00:31 Temperature Pulse Rate 58 L 75 62 Pulse Rate [ From Monitor] Respiratory 24 24 24 Rate Blood Pressure 149/77 151/80 157/80 O2 Sat by Pulse 100 100 100 Oximetry 01/24/21 01/24/21 01/24/21 00:40 00:50 01:00 Temperature Pulse Rate 66 67 Pulse Rate [ 64 From Monitor] Respiratory 24 24 24 Rate Blood Pressure 147/79 147/81 O2 Sat by Pulse 100 100 100 Oximetry 01/24/21 01/24/21 01/24/21 01:01 01:10 01:21 Temperature Pulse Rate 61 63 70 Pulse Rate [ From Monitor] Respiratory 24 24 24 Rate Blood Pressure 155/79 157/84 138/82 O2 Sat by Pulse 100 100 100 Oximetry 01/24/21 01/24/21 01/24/21 01:30 01:40 01:50 Temperature Pulse Rate 63 63 67 Pulse Rate [ From Monitor] Respiratory 24 24 24 Rate Blood Pressure 147/91 127/79 150/87 O2 Sat by Pulse 100 100 100 Oximetry 01/24/21 01/24/21 01/24/21 02:01 02:10 02:20 Temperature Pulse Rate 67 58 L 62 Pulse Rate [ From Monitor] Respiratory 24 24 24 Rate Blood Pressure 153/82 153/82 149/84 O2 Sat by Pulse 100 100 100 Oximetry 01/24/21 01/24/21 01/24/21 02:31 02:40 02:50 Temperature Pulse Rate 64 64 70 Pulse Rate [ From Monitor] Respiratory 24 24 24 Rate Blood Pressure 154/85 158/80 153/87 O2 Sat by Pulse 100 100 100 Oximetry 01/24/21 01/24/21 01/24/21 03:01 03:10 03:20 Temperature Pulse Rate 70 67 69 Pulse Rate [ From Monitor] Respiratory 24 24 24 Rate Blood Pressure 167/101 160/88 157/86 O2 Sat by Pulse 100 100 100 Oximetry 01/24/21 01/24/21 01/24/21 03:31 03:40 03:50 Temperature Pulse Rate 72 61 70 Pulse Rate [ From Monitor] Respiratory 24 24 24 Rate Blood Pressure 156/97 162/89 163/89 O2 Sat by Pulse 100 100 100 Oximetry 01/24/21 01/24/21 01/24/21 04:00 04:01 04:11 Temperature 100.0 F H Pulse Rate 66 69 89 Pulse Rate [ From Monitor] Respiratory 24 14 Rate Blood Pressure 160/87 172/95 O2 Sat by Pulse 100 97 Oximetry 01/24/21 01/24/21 01/24/21 04:21 04:31 04:40 Temperature Pulse Rate 94 H 103 H 120 H Pulse Rate [ From Monitor] Respiratory 15 23 40 H Rate Blood Pressure 183/111 193/104 198/97 O2 Sat by Pulse 91 97 97 Oximetry 01/24/21 01/24/21 01/24/21 04:51 05:00 05:01 Temperature Pulse Rate 127 H 110 H Pulse Rate [ 69 From Monitor] Respiratory 15 24 17 Rate Blood Pressure 188/115 166/93 O2 Sat by Pulse 96 100 98 Oximetry 01/24/21 01/24/21 01/24/21 05:10 05:13 05:21 Temperature Pulse Rate 94 H 85 88 Pulse Rate [ From Monitor] Respiratory 21 24 Rate Blood Pressure 132/67 125/61 103/54 O2 Sat by Pulse 98 100 99 Oximetry 01/24/21 01/24/21 01/24/21 05:30 05:41 05:51 Temperature Pulse Rate 88 79 69 Pulse Rate [ From Monitor] Respiratory 24 24 24 Rate Blood Pressure 91/50 107/55 116/60 O2 Sat by Pulse 99 99 100 Oximetry 01/24/21 01/24/21 01/24/21 06:00 06:11 06:21 Temperature Pulse Rate 68 67 70 Pulse Rate [ From Monitor] Respiratory 24 24 Rate Blood Pressure 117/62 125/65 128/73 O2 Sat by Pulse 100 100 100 Oximetry 01/24/21 01/24/21 01/24/21 06:31 06:40 06:51 Temperature Pulse Rate 72 67 68 Pulse Rate [ From Monitor] Respiratory 24 24 24 Rate Blood Pressure 134/69 142/76 135/82 O2 Sat by Pulse 100 100 100 Oximetry 01/24/21 01/24/21 01/24/21 07:01 07:10 07:21 Temperature Pulse Rate 63 72 63 Pulse Rate [ From Monitor] Respiratory 18 24 24 Rate Blood Pressure 159/90 154/87 124/66 O2 Sat by Pulse 100 100 100 Oximetry 01/24/21 01/24/21 01/24/21 07:31 07:40 07:51 Temperature Pulse Rate 65 69 60 Pulse Rate [ From Monitor] Respiratory 24 24 24 Rate Blood Pressure 117/63 105/63 109/63 O2 Sat by Pulse 100 100 100 Oximetry 01/24/21 01/24/21 01/24/21 08:00 08:01 08:04 Temperature 99.6 F Pulse Rate 56 L 56 L Pulse Rate [ From Monitor] Respiratory 24 24 Rate Blood Pressure 107/60 O2 Sat by Pulse 100 Oximetry 01/24/21 01/24/21 01/24/21 08:10 08:21 08:31 Temperature Pulse Rate 64 67 62 Pulse Rate [ From Monitor] Respiratory 24 23 24 Rate Blood Pressure 118/72 125/68 109/67 O2 Sat by Pulse 100 99 99 Oximetry 01/24/21 01/24/21 01/24/21 08:35 08:40 08:51 Temperature Pulse Rate 73 66 65 Pulse Rate [ From Monitor] Respiratory 15 24 Rate Blood Pressure 87/60 87/60 98/64 O2 Sat by Pulse 100 99 98 Oximetry 01/24/21 01/24/21 01/24/21 09:01 09:11 09:21 Temperature Pulse Rate 65 61 60 Pulse Rate [ From Monitor] Respiratory 24 24 24 Rate Blood Pressure 96/55 96/61 98/59 O2 Sat by Pulse 99 99 99 Oximetry 01/24/21 01/24/21 01/24/21 09:31 09:40 09:51 Temperature Pulse Rate 56 L 65 71 Pulse Rate [ From Monitor] Respiratory 24 24 24 Rate Blood Pressure 99/60 92/61 97/61 O2 Sat by Pulse 99 99 98 Oximetry Constitutional: no acute distress Eyes: non-icteric ENT: other (orally intubated.) Neck: supple, other (large in circumference) Ascultation: Bilateral: diminished breath sounds Percussion: Bilateral: not dull Cardiovascular: regular rate and rhythm Gastrointestinal: normoactive bowel sounds, soft Integumentary: normal Neurologic: unable to assess CBC and BMP: 01/24/21 04:56 01/24/21 04:56 ABG, PT/INR, D-dimer: ABG ABG pH 7.473 (7.320-7.450) H 01/24/21 05:00 POC ABG pCO2 42.5 mmHg (32.0-48.0) 01/24/21 05:00 POC ABG pO2 53.9 mmHg (83-108) L 01/24/21 05:00 POC ABG HCO3 30.4 01/24/21 05:00 ABG O2 Saturation 91.1 (0-100) 01/24/21 05:00 PT/INR, D-dimer PT 14.5 Sec. (12.2-14.9) 01/21/21 15:13 INR 1.14 (0.87-1.13) H 01/21/21 15:13 D-Dimer 229.34 ng/mlDDU (0-234) 01/20/21 23:20 Abnormal lab findings: Abnormal Labs 01/20/21 01/20/21 01/20/21 19:26 19:26 23:20 Hgb 15.3 H Hct 45.8 H MCV 98 H MCH 33 H RDW Lymph % (Auto) 5.2 L Douglas % (Auto) 10.4 H Lymph # (Auto) 0.3 L Seg Neutrophils % 82.9 H Seg Neuts % (Manual) Lymphocytes % (Manual) Lymphocytes # (Manual) INR ABG pH POC ABG pCO2 POC ABG pO2 ABG Oxyhemoglobin ABG Potassium ABG Glucose Sodium Chloride 97.8 L Carbon Dioxide 33 H BUN Creatinine Glucose 127 H POC Glucose Calcium Phosphorus Magnesium Lactate Dehydrogenase 384 H C-Reactive Protein 2.70 H Albumin Cholesterol LDL Cholesterol Direct Arterial Blood Glucose Arterial Blood Ionized Calcium 01/21/21 01/21/21 01/21/21 00:17 05:45 05:45 Hgb 15.9 H Hct 47.9 H MCV 98 H MCH 33 H RDW 15.3 H Lymph % (Auto) Douglas % (Auto) Lymph # (Auto) Seg Neutrophils % Seg Neuts % (Manual) 96.0 H Lymphocytes % (Manual) 3.0 L Lymphocytes # (Manual) 0.2 L INR ABG pH POC ABG pCO2 POC ABG pO2 ABG Oxyhemoglobin ABG Potassium ABG Glucose Sodium Chloride 96.2 L Carbon Dioxide 35 H BUN Creatinine 0.7 L Glucose 142 H POC Glucose 119 H Calcium Phosphorus Magnesium Lactate Dehydrogenase C-Reactive Protein Albumin Cholesterol 210 H LDL Cholesterol Direct 155 H Arterial Blood Glucose Arterial Blood Ionized Calcium 01/21/21 01/21/21 01/21/21 05:56 09:33 15:13 Hgb Hct 45.8 H MCV 98 H MCH RDW Lymph % (Auto) Douglas % (Auto) Lymph # (Auto) Seg Neutrophils % Seg Neuts % (Manual) Lymphocytes % (Manual) Lymphocytes # (Manual) INR ABG pH POC ABG pCO2 POC ABG pO2 ABG Oxyhemoglobin ABG Potassium ABG Glucose Sodium Chloride Carbon Dioxide BUN Creatinine Glucose POC Glucose 147 H 153 H Calcium Phosphorus Magnesium Lactate Dehydrogenase C-Reactive Protein Albumin Cholesterol LDL Cholesterol Direct Arterial Blood Glucose Arterial Blood Ionized Calcium 01/21/21 01/21/21 01/22/21 15:13 16:33 01:53 Hgb Hct MCV MCH RDW Lymph % (Auto) Douglas % (Auto) Lymph # (Auto) Seg Neutrophils % Seg Neuts % (Manual) Lymphocytes % (Manual) Lymphocytes # (Manual) INR 1.14 H ABG pH POC ABG pCO2 POC ABG pO2 ABG Oxyhemoglobin ABG Potassium ABG Glucose Sodium Chloride Carbon Dioxide BUN Creatinine Glucose POC Glucose 126 H 112 H Calcium Phosphorus Magnesium Lactate Dehydrogenase C-Reactive Protein Albumin Cholesterol LDL Cholesterol Direct Arterial Blood Glucose Arterial Blood Ionized Calcium 01/22/21 01/22/21 01/22/21 06:06 12:05 16:51 Hgb Hct MCV MCH RDW Lymph % (Auto) Douglas % (Auto) Lymph # (Auto) Seg Neutrophils % Seg Neuts % (Manual) Lymphocytes % (Manual) Lymphocytes # (Manual) INR ABG pH POC ABG pCO2 POC ABG pO2 ABG Oxyhemoglobin ABG Potassium ABG Glucose Sodium Chloride Carbon Dioxide BUN Creatinine Glucose POC Glucose 107 H 121 H 164 H Calcium Phosphorus Magnesium Lactate Dehydrogenase C-Reactive Protein Albumin Cholesterol LDL Cholesterol Direct Arterial Blood Glucose Arterial Blood Ionized Calcium 01/22/21 01/23/21 01/23/21 23:10 05:39 06:08 Hgb Hct MCV 101 H MCH 33 H RDW Lymph % (Auto) Douglas % (Auto) Lymph # (Auto) Seg Neutrophils % Seg Neuts % (Manual) Lymphocytes % (Manual) Lymphocytes # (Manual) INR ABG pH POC ABG pCO2 POC ABG pO2 ABG Oxyhemoglobin ABG Potassium ABG Glucose Sodium Chloride Carbon Dioxide BUN Creatinine Glucose POC Glucose 143 H 150 H Calcium Phosphorus Magnesium Lactate Dehydrogenase C-Reactive Protein Albumin Cholesterol LDL Cholesterol Direct Arterial Blood Glucose Arterial Blood Ionized Calcium 01/23/21 01/23/21 01/23/21 11:27 13:55 17:54 Hgb Hct MCV MCH RDW Lymph % (Auto) Douglas % (Auto) Lymph # (Auto) Seg Neutrophils % Seg Neuts % (Manual) Lymphocytes % (Manual) Lymphocytes # (Manual) INR ABG pH 7.249 L POC ABG pCO2 83.0 H POC ABG pO2 82.8 L ABG Oxyhemoglobin ABG Potassium 4.8 H ABG Glucose 236 H Sodium Chloride Carbon Dioxide 33 H BUN 32 H Creatinine 1.6 H D Glucose 146 H POC Glucose 218 H Calcium 8.3 L Phosphorus Magnesium 3.00 H Lactate Dehydrogenase C-Reactive Protein Albumin 3.2 L Cholesterol LDL Cholesterol Direct Arterial Blood Glucose 236 H Arterial Blood Ionized Calcium 4.5 L 01/23/21 01/24/21 01/24/21 17:54 03:11 04:56 Hgb Hct MCV 100 H MCH RDW 15.4 H Lymph % (Auto) Douglas % (Auto) Lymph # (Auto) Seg Neutrophils % Seg Neuts % (Manual) Lymphocytes % (Manual) Lymphocytes # (Manual) INR ABG pH POC ABG pCO2 POC ABG pO2 ABG Oxyhemoglobin ABG Potassium ABG Glucose Sodium Chloride Carbon Dioxide BUN Creatinine Glucose POC Glucose 131 H Calcium Phosphorus 2.00 L Magnesium Lactate Dehydrogenase C-Reactive Protein Albumin Cholesterol LDL Cholesterol Direct Arterial Blood Glucose Arterial Blood Ionized Calcium 01/24/21 01/24/21 01/24/21 04:56 05:00 05:47 Hgb Hct MCV MCH RDW Lymph % (Auto) Douglas % (Auto) Lymph # (Auto) Seg Neutrophils % Seg Neuts % (Manual) Lymphocytes % (Manual) Lymphocytes # (Manual) INR ABG pH 7.473 H POC ABG pCO2 POC ABG pO2 53.9 L ABG Oxyhemoglobin 90.0 L ABG Potassium ABG Glucose 127 H Sodium 147 H D Chloride Carbon Dioxide 36 H BUN 33 H Creatinine 1.5 H Glucose 128 H POC Glucose 141 H Calcium 8.3 L Phosphorus Magnesium Lactate Dehydrogenase C-Reactive Protein Albumin Cholesterol LDL Cholesterol Direct Arterial Blood Glucose 127 H Arterial Blood Ionized Calcium 4.5 L 01/24/21 08:44 Hgb Hct MCV MCH RDW Lymph % (Auto) Douglas % (Auto) Lymph # (Auto) Seg Neutrophils % Seg Neuts % (Manual) Lymphocytes % (Manual) Lymphocytes # (Manual) INR ABG pH POC ABG pCO2 POC ABG pO2 ABG Oxyhemoglobin ABG Potassium ABG Glucose Sodium Chloride Carbon Dioxide BUN Creatinine Glucose POC Glucose Calcium Phosphorus 1.40 L D Magnesium 2.90 H Lactate Dehydrogenase C-Reactive Protein Albumin Cholesterol LDL Cholesterol Direct Arterial Blood Glucose Arterial Blood Ionized Calcium
[2021-01-24] MEDS ORDERED: SODIUM PHOSPHATE 15 MMOL in SODIUM CHLORIDE 0.9% 250ML 150 ML IV SCH (11:45)
--- NOTE | 2021-01-24 11:59 | XRay Report ---
ABDOMEN 1 VIEW(S) INDICATION / CLINICAL INFORMATION: OGT PLACEMENT. COMPARISON: Earlier today at 0831 hours. FINDINGS: TUBES / LINES: The sidehole of the nasogastric tube terminates at the GE junction. It is essentially unchanged in position. Recommend advancement by 5 to 10 cm to the distal stomach. BOWEL GAS PATTERN: No significant abnormality. FREE AIR / EXTRALUMINAL GAS: None seen. ADDITIONAL FINDINGS: No significant additional findings. IMPRESSION: Nasogastric tube as described. Signer Name: Helder Marks Jr, MD Signed: 01/24/2021 11:50 AM Workstation Name: [id number]
--- NOTE | 2021-01-24 12:26 | Progress Note ---
Assessment and Plan Assessment and Plan VTE prophylaxis?: Chemical Plan of care discussed with patient/family: Yes #Encephalopathy -65 ys old male presented with diffuse weakness and fever he is lethargic open eyes only to verbal command with difficulty sustaining eyes open -findings from hx and exam is suggestive of under lying ?infection ,toximetabolic and or drug effect -he is with significant asterexsis in both upper extremties with the possibility of hepatic and or renal insuficency can not be excluded -BUN/CR#wnl -Ammonia is# 58 -Ct brain is suggestive right parietal hypodensity # respiratory failure -required intubation #Left side weakness and slurred speech -CVA can not be excluded -Ct brain showed rigth sided hypodensity with left side weakness -NIH#9 -Hx of AF on Eliquis Hold medication -PT/ST evaluate -Echo cardiogram pending -MRI brain is needed r/o CVA - CTA Brain and neck pending -ASA 325 mg daily for now/300 mg Rectal -Lipitor 40 mg daily -Lipid profil--LDL#155 -Echo cardiogram with buble study -panel monitor # Pneumonia -Admit the patient to the medical telemetry. Put the patient on pneumonia pa thway. - Oxygen via nasal cannula 3 L/min. DuoNeb by nebulizer every 4 hours as needed. Rocephin 2 g IV daily and Zithromax 500 mg IV daily we will do the blood culture and sputum culture. # Hypoxia -Put the patient on pneumonia pathway. - Oxygen via nasal cannula 3 L/min. -DuoNeb by nebulizer every 4 hours as needed. -ABG # Diabetes -We will put the patient on Humalog sliding scale Accu-Chek every 6 hours with moderate dose coverage. -A1C pending # A-fib -Heparin 5000 units subcu every 8 hours. -We do echocardiogram. -Hold Eliquis for now -ASA 325 mg daily -SQ heparine # Hypertensive urgency -Labetalol 10 mg IV q. 5 minutes as needed. Hydralazine 10 mg IV every 6 hours as needed. Metoprolol 25 mg p.o. daily. We will monitor the blood pressure closely -Allow for permissive HTN,220/120 for first 24 hours # DVT prophylaxis -Heparin 5000 units subcu every 8 hours for DVT prophylaxis. - Pepcid 20 mg p.o. twice daily for GI prophylaxis. -Patient is a full code PLAN 1- MRI brain 2- CTA brain and neck 3- NPO ,IV fluid 4-Treat underlying infection 5- Hold Eliquis for now --SQ heparine and ASA 325 mg daily 6- Lipitor up to 80 mg 9- Neuro check Q8 hours will follow Subjective Date of service: 01/24/21 Principal diagnosis: CVA Interval history: pt. had respiratory distress required intubation transferred to unit no MRI or CTA done Echo is pending he is intubated sedated move all limbs Objective - Vital Sign Vital Signs - 12hr 01/24/21 01/24/21 01/24/21 00:31 00:40 00:50 Temperature Pulse Rate 62 66 67 Pulse Rate [ From Monitor] Respiratory 24 24 24 Rate Blood Pressure 157/80 147/79 147/81 O2 Sat by Pulse 100 100 100 Oximetry 01/24/21 01/24/21 01/24/21 01:00 01:01 01:10 Temperature Pulse Rate 61 63 Pulse Rate [ 64 From Monitor] Respiratory 24 24 24 Rate Blood Pressure 155/79 157/84 O2 Sat by Pulse 100 100 100 Oximetry 01/24/21 01/24/21 01/24/21 01:21 01:30 01:40 Temperature Pulse Rate 70 63 63 Pulse Rate [ From Monitor] Respiratory 24 24 24 Rate Blood Pressure 138/82 147/91 127/79 O2 Sat by Pulse 100 100 100 Oximetry 01/24/21 01/24/21 01/24/21 01:50 02:01 02:10 Temperature Pulse Rate 67 67 58 L Pulse Rate [ From Monitor] Respiratory 24 24 24 Rate Blood Pressure 150/87 153/82 153/82 O2 Sat by Pulse 100 100 100 Oximetry 01/24/21 01/24/21 01/24/21 02:20 02:31 02:40 Temperature Pulse Rate 62 64 64 Pulse Rate [ From Monitor] Respiratory 24 24 24 Rate Blood Pressure 149/84 154/85 158/80 O2 Sat by Pulse 100 100 100 Oximetry 01/24/21 01/24/21 01/24/21 02:50 03:01 03:10 Temperature Pulse Rate 70 70 67 Pulse Rate [ From Monitor] Respiratory 24 24 24 Rate Blood Pressure 153/87 167/101 160/88 O2 Sat by Pulse 100 100 100 Oximetry 01/24/21 01/24/21 01/24/21 03:20 03:31 03:40 Temperature Pulse Rate 69 72 61 Pulse Rate [ From Monitor] Respiratory 24 24 24 Rate Blood Pressure 157/86 156/97 162/89 O2 Sat by Pulse 100 100 100 Oximetry 01/24/21 01/24/21 01/24/21 03:50 04:00 04:01 Temperature 100.0 F H Pulse Rate 70 66 69 Pulse Rate [ From Monitor] Respiratory 24 24 Rate Blood Pressure 163/89 160/87 O2 Sat by Pulse 100 100 Oximetry 01/24/21 01/24/21 01/24/21 04:11 04:21 04:31 Temperature Pulse Rate 89 94 H 103 H Pulse Rate [ From Monitor] Respiratory 14 15 23 Rate Blood Pressure 172/95 183/111 193/104 O2 Sat by Pulse 97 91 97 Oximetry 01/24/21 01/24/21 01/24/21 04:40 04:51 05:00 Temperature Pulse Rate 120 H 127 H Pulse Rate [ 69 From Monitor] Respiratory 40 H 15 24 Rate Blood Pressure 198/97 188/115 O2 Sat by Pulse 97 96 100 Oximetry 01/24/21 01/24/21 01/24/21 05:01 05:10 05:13 Temperature Pulse Rate 110 H 94 H 85 Pulse Rate [ From Monitor] Respiratory 17 21 Rate Blood Pressure 166/93 132/67 125/61 O2 Sat by Pulse 98 98 100 Oximetry 01/24/21 01/24/21 01/24/21 05:21 05:30 05:41 Temperature Pulse Rate 88 88 79 Pulse Rate [ From Monitor] Respiratory 24 24 24 Rate Blood Pressure 103/54 91/50 107/55 O2 Sat by Pulse 99 99 99 Oximetry 01/24/21 01/24/21 01/24/21 05:51 06:00 06:11 Temperature Pulse Rate 69 68 67 Pulse Rate [ From Monitor] Respiratory 24 24 24 Rate Blood Pressure 116/60 117/62 125/65 O2 Sat by Pulse 100 100 100 Oximetry 01/24/21 01/24/21 01/24/21 06:21 06:31 06:40 Temperature Pulse Rate 70 72 67 Pulse Rate [ From Monitor] Respiratory 24 24 24 Rate Blood Pressure 128/73 134/69 142/76 O2 Sat by Pulse 100 100 100 Oximetry 01/24/21 01/24/21 01/24/21 06:51 07:01 07:10 Temperature Pulse Rate 68 63 72 Pulse Rate [ From Monitor] Respiratory 24 18 24 Rate Blood Pressure 135/82 159/90 154/87 O2 Sat by Pulse 100 100 100 Oximetry 01/24/21 01/24/21 01/24/21 07:21 07:31 07:40 Temperature Pulse Rate 63 65 69 Pulse Rate [ From Monitor] Respiratory 24 24 24 Rate Blood Pressure 124/66 117/63 105/63 O2 Sat by Pulse 100 100 100 Oximetry 01/24/21 01/24/21 01/24/21 07:51 08:00 08:01 Temperature 99.6 F Pulse Rate 60 56 L 56 L Pulse Rate [ From Monitor] Respiratory 24 24 Rate Blood Pressure 109/63 107/60 O2 Sat by Pulse 100 100 Oximetry 01/24/21 01/24/21 01/24/21 08:04 08:10 08:21 Temperature Pulse Rate 64 67 Pulse Rate [ From Monitor] Respiratory 24 24 23 Rate Blood Pressure 118/72 125/68 O2 Sat by Pulse 100 99 Oximetry 01/24/21 01/24/21 01/24/21 08:31 08:35 08:40 Temperature Pulse Rate 62 73 66 Pulse Rate [ From Monitor] Respiratory 24 15 Rate Blood Pressure 109/67 87/60 87/60 O2 Sat by Pulse 99 100 99 Oximetry 01/24/21 01/24/21 01/24/21 08:51 09:01 09:11 Temperature Pulse Rate 65 65 61 Pulse Rate [ From Monitor] Respiratory 24 24 24 Rate Blood Pressure 98/64 96/55 96/61 O2 Sat by Pulse 98 99 99 Oximetry 01/24/21 01/24/21 01/24/21 09:21 09:31 09:40 Temperature Pulse Rate 60 56 L 65 Pulse Rate [ From Monitor] Respiratory 24 24 24 Rate Blood Pressure 98/59 99/60 92/61 O2 Sat by Pulse 99 99 99 Oximetry 01/24/21 01/24/21 09:51 12:00 Temperature 99 F Pulse Rate 71 Pulse Rate [ From Monitor] Respiratory 24 Rate Blood Pressure 97/61 O2 Sat by Pulse 98 Oximetry - General Apperance Constitutional: comfortable - EENT EENT: PERRL, mucous membranes moist - Respiratory Respiratory: lungs clear, rhonchi - Cardiovascular Cardiovascular: normal S1, normal S2 Extremities: no peripheral edema bilat, no clubbing, cyanosis - Gastrointestinal Gastrointestinal: normoactive bowel sounds - Integumentary Integumentary: normal - Neurologic Cranial nerve examination: PERRL, EOMI Detailed motor examination: other (move all limbs he is sedated difficult to assess exact srength.) - Laboratory Findings CBC and BMP: 01/24/21 04:56 01/24/21 04:56 Abnormal Lab Findings: Abnormal Labs 01/20/21 01/20/21 01/20/21 19:26 19:26 23:20 Hgb 15.3 H Hct 45.8 H MCV 98 H MCH 33 H RDW Lymph % (Auto) 5.2 L [place] % (Auto) 10.4 H Lymph # (Auto) 0.3 L Seg Neutrophils % 82.9 H Seg Neuts % (Manual) Lymphocytes % (Manual) Lymphocytes # (Manual) INR ABG pH POC ABG pCO2 POC ABG pO2 ABG Oxyhemoglobin ABG Potassium ABG Glucose Sodium Chloride 97.8 L Carbon Dioxide 33 H BUN Creatinine Glucose 127 H POC Glucose Calcium Phosphorus Magnesium Lactate Dehydrogenase 384 H C-Reactive Protein 2.70 H Albumin Cholesterol LDL Cholesterol Direct Arterial Blood Glucose Arterial Blood Ionized Calcium 01/21/21 01/21/21 01/21/21 00:17 05:45 05:45 Hgb 15.9 H Hct 47.9 H MCV 98 H MCH 33 H RDW 15.3 H Lymph % (Auto) [place] % (Auto) Lymph # (Auto) Seg Neutrophils % Seg Neuts % (Manual) 96.0 H Lymphocytes % (Manual) 3.0 L Lymphocytes # (Manual) 0.2 L INR ABG pH POC ABG pCO2 POC ABG pO2 ABG Oxyhemoglobin ABG Potassium ABG Glucose Sodium Chloride 96.2 L Carbon Dioxide 35 H BUN Creatinine 0.7 L Glucose 142 H POC Glucose 119 H Calcium Phosphorus Magnesium Lactate Dehydrogenase C-Reactive Protein Albumin Cholesterol 210 H LDL Cholesterol Direct 155 H Arterial Blood Glucose Arterial Blood Ionized Calcium 01/21/21 01/21/21 01/21/21 05:56 09:33 15:13 Hgb Hct 45.8 H MCV 98 H MCH RDW Lymph % (Auto) [place] % (Auto) Lymph # (Auto) Seg Neutrophils % Seg Neuts % (Manual) Lymphocytes % (Manual) Lymphocytes # (Manual) INR ABG pH POC ABG pCO2 POC ABG pO2 ABG Oxyhemoglobin ABG Potassium ABG Glucose Sodium Chloride Carbon Dioxide BUN Creatinine Glucose POC Glucose 147 H 153 H Calcium Phosphorus Magnesium Lactate Dehydrogenase C-Reactive Protein Albumin Cholesterol LDL Cholesterol Direct Arterial Blood Glucose Arterial Blood Ionized Calcium 01/21/21 01/21/21 01/22/21 15:13 16:33 01:53 Hgb Hct MCV MCH RDW Lymph % (Auto) [place] % (Auto) Lymph # (Auto) Seg Neutrophils % Seg Neuts % (Manual) Lymphocytes % (Manual) Lymphocytes # (Manual) INR 1.14 H ABG pH POC ABG pCO2 POC ABG pO2 ABG Oxyhemoglobin ABG Potassium ABG Glucose Sodium Chloride Carbon Dioxide BUN Creatinine Glucose POC Glucose 126 H 112 H Calcium Phosphorus Magnesium Lactate Dehydrogenase C-Reactive Protein Albumin Cholesterol LDL Cholesterol Direct Arterial Blood Glucose Arterial Blood Ionized Calcium 01/22/21 01/22/21 01/22/21 06:06 12:05 16:51 Hgb Hct MCV MCH RDW Lymph % (Auto) [place] % (Auto) Lymph # (Auto) Seg Neutrophils % Seg Neuts % (Manual) Lymphocytes % (Manual) Lymphocytes # (Manual) INR ABG pH POC ABG pCO2 POC ABG pO2 ABG Oxyhemoglobin ABG Potassium ABG Glucose Sodium Chloride Carbon Dioxide BUN Creatinine Glucose POC Glucose 107 H 121 H 164 H Calcium Phosphorus Magnesium Lactate Dehydrogenase C-Reactive Protein Albumin Cholesterol LDL Cholesterol Direct Arterial Blood Glucose Arterial Blood Ionized Calcium 01/22/21 01/23/21 01/23/21 23:10 05:39 06:08 Hgb Hct MCV 101 H MCH 33 H RDW Lymph % (Auto) [place] % (Auto) Lymph # (Auto) Seg Neutrophils % Seg Neuts % (Manual) Lymphocytes % (Manual) Lymphocytes # (Manual) INR ABG pH POC ABG pCO2 POC ABG pO2 ABG Oxyhemoglobin ABG Potassium ABG Glucose Sodium Chloride Carbon Dioxide BUN Creatinine Glucose POC Glucose 143 H 150 H Calcium Phosphorus Magnesium Lactate Dehydrogenase C-Reactive Protein Albumin Cholesterol LDL Cholesterol Direct Arterial Blood Glucose Arterial Blood Ionized Calcium 01/23/21 01/23/21 01/23/21 11:27 13:55 17:54 Hgb Hct MCV MCH RDW Lymph % (Auto) [place] % (Auto) Lymph # (Auto) Seg Neutrophils % Seg Neuts % (Manual) Lymphocytes % (Manual) Lymphocytes # (Manual) INR ABG pH 7.249 L POC ABG pCO2 83.0 H POC ABG pO2 82.8 L ABG Oxyhemoglobin ABG Potassium 4.8 H ABG Glucose 236 H Sodium Chloride Carbon Dioxide 33 H BUN 32 H Creatinine 1.6 H D Glucose 146 H POC Glucose 218 H Calcium 8.3 L Phosphorus Magnesium 3.00 H Lactate Dehydrogenase C-Reactive Protein Albumin 3.2 L Cholesterol LDL Cholesterol Direct Arterial Blood Glucose 236 H Arterial Blood Ionized Calcium 4.5 L 01/23/21 01/24/21 01/24/21 17:54 03:11 04:56 Hgb Hct MCV 100 H MCH RDW 15.4 H Lymph % (Auto) [place] % (Auto) Lymph # (Auto) Seg Neutrophils % Seg Neuts % (Manual) Lymphocytes % (Manual) Lymphocytes # (Manual) INR ABG pH POC ABG pCO2 POC ABG pO2 ABG Oxyhemoglobin ABG Potassium ABG Glucose Sodium Chloride Carbon Dioxide BUN Creatinine Glucose POC Glucose 131 H Calcium Phosphorus 2.00 L Magnesium Lactate Dehydrogenase C-Reactive Protein Albumin Cholesterol LDL Cholesterol Direct Arterial Blood Glucose Arterial Blood Ionized Calcium 01/24/21 01/24/21 01/24/21 04:56 05:00 05:47 Hgb Hct MCV MCH RDW Lymph % (Auto) [place] % (Auto) Lymph # (Auto) Seg Neutrophils % Seg Neuts % (Manual) Lymphocytes % (Manual) Lymphocytes # (Manual) INR ABG pH 7.473 H POC ABG pCO2 POC ABG pO2 53.9 L ABG Oxyhemoglobin 90.0 L ABG Potassium ABG Glucose 127 H Sodium 147 H D Chloride Carbon Dioxide 36 H BUN 33 H Creatinine 1.5 H Glucose 128 H POC Glucose 141 H Calcium 8.3 L Phosphorus Magnesium Lactate Dehydrogenase C-Reactive Protein Albumin Cholesterol LDL Cholesterol Direct Arterial Blood Glucose 127 H Arterial Blood Ionized Calcium 4.5 L 01/24/21 01/24/21 08:44 11:27 Hgb Hct MCV MCH RDW Lymph % (Auto) [place] % (Auto) Lymph # (Auto) Seg Neutrophils % Seg Neuts % (Manual) Lymphocytes % (Manual) Lymphocytes # (Manual) INR ABG pH POC ABG pCO2 POC ABG pO2 ABG Oxyhemoglobin ABG Potassium ABG Glucose Sodium Chloride Carbon Dioxide BUN Creatinine Glucose POC Glucose 127 H Calcium Phosphorus 1.40 L D Magnesium 2.90 H Lactate Dehydrogenase C-Reactive Protein Albumin Cholesterol LDL Cholesterol Direct Arterial Blood Glucose Arterial Blood Ionized Calcium
[2021-01-24] MEDS: ASPIRIN 325 MG TAB PO SCH ×2 (13:17→16:08)
[2021-01-24] MEDS: SODIUM PHOSPHATE 15 MMOL in SODIUM CHLORIDE 0.9% 250ML 250 ML IV SCH ×2 (13:19→17:18)
--- NOTE | 2021-01-24 13:35 | XRay Report ---
Abdomen single view INDICATION: Abdominal pain IMPRESSION: The esophagogastric tube now terminates within the upper body of the stomach to the gastr ic cardia. Signer Name: Michael Givens MD Signed: 01/24/2021 1:30 PM Workstation Name: [id number]
--- NOTE | 2021-01-24 15:57 | Progress Note ---
Assessment and Plan Echo reviewed - mild LVH, EF 50-55%, mod pulm HTN w/RVSP 53 mmHg, mod RA enlargement, mild RV enlargement with TR, negative Bubble study. Remains in AF/Flutter on tele, rate is well controlled. Resume Eliquis when ok from a Neuro standpoint. Pt seen in conjunction with Dr. Pizano, who agrees with the assessment and plan of care. - Patient Problems (1) Acute CVA (cerebrovascular accident) Current Visit: Yes Status: Suspected (2) Acute respiratory failure Current Visit: Yes Status: Acute (3) Pneumonia Current Visit: Yes Status: Acute (4) Atrial fibrillation Current Visit: Yes Status: Acute Qualifiers: Atrial fibrillation type: unspecified Qualified Code(s): I48.91 - Unspecified atrial fibrillation (5) Seizure Current Visit: Yes Status: Chronic (6) HTN (hypertension) Current Visit: Yes Status: Chronic Qualifiers: Hypertension type: essential hypertension Qualified Code(s): I10 - Essential (primary) hypertension (7) DM2 (diabetes mellitus, type 2) Current Visit: Yes Status: Chronic Subjective Date of service: 01/24/21 Principal diagnosis: CVA Interval history: Remains intubated/sedated. Off pressors this afternoon. Tele reviewed - AF 60- 70s (down to 40s overnight). Objective Last Vital Signs Temp 99 F 01/24/21 12:00 Pulse 66 01/24/21 14:21 Resp 24 01/24/21 14:21 BP 120/70 01/24/21 14:21 Pulse Ox 100 01/24/21 14:21 - Physical Examination General: Other (intubated) HEENT: Positive: Normocephaly Neck: Positive: neck supple, trachea midline Cardiac: Positive: irregularly irregular, S1/S2 Lungs: Positive: clear to auscultation (bilaterally) Neuro: Positive: Other (intubated) Abdomen: Positive: Soft Skin: Negative: Rash Musculoskeletal: No Fluid Collection Extremities: Present: lower extr. pulses. Absent: edema - Labs and Meds Cardiac Enzymes 01/23/21 Range/Units 17:54 AST 35 (5-40) units/L CBC 01/24/21 Range/Units 04:56 WBC 8.1 (4.5-11.0) K/mm3 RBC 4.47 (3.65-5.03) M/mm3 Hgb 14.5 (11.8-15.2) gm/dl Hct 44.7 (35.5-45.6) % Plt Count 199 (140-440) K/mm3 Comprehensive Metabolic Panel 01/23/21 01/24/21 Range/Units 17:54 04:56 Sodium 139 147 H D (137-145) mmol/L Potassium 4.4 4.6 (3.6-5.0) mmol/L Chloride 99.2 103.4 (98-107) mmol/L Carbon Dioxide 33 H 36 H (22-30) mmol/L BUN 32 H 33 H (9-20) mg/dL Creatinine 1.6 H D 1.5 H (0.8-1.3) mg/dL Glucose 146 H 128 H (75-100) mg/dL Calcium 8.3 L 8.3 L (8.4-10.2) mg/dL AST 35 (5-40) units/L ALT 31 (7-56) units/L Alkaline Phosphatase 78 (35-129) units/L Total Protein 6.4 (6.3-8.2) g/dL Albumin 3.2 L (3.9-5) g/dL - Imaging and Cardiology EKG: report reviewed, image reviewed Echo: report reviewed (01/23/2021 - mild LVH, EF 50-55%, mod pulm HTN w/RVSP 53 mmHg, mod RA enlargement, mild RV enlargement with TR) - Telemetry EKG Rhythm: Atrial Fibrillation - EKG Supraventricular dysrhythmia: atrial fibrillation Repolarization changes or abnormalities: nonspecific abnormality, ST segment, and/or T wave - Allied health notes Allied health notes reviewed: nursing
--- NOTE | 2021-01-24 16:22 | Cat Scan Report ---
. NONENHANCED CT SCAN OF THE HEAD: INDICATION / CLINICAL INFORMATION: 65 years Male; Altered level of consciousness. TECHNIQUE: Routine CT head without contrast. All CT scans at this location are performed using CT dos e reduction for ALARA by means of automated exposure control. COMPARISON: CT scan of the head from 04/22/2021 FINDINGS: BRAIN / INTRACRANIAL CONTENTS: No acute hemorrhage, mass effect, midline shift, hydrocephalus, or acu te, large territorial infarct. Chronic ischemic changes in the right middle frontal gyrus No signific ant white matter abnormality. CRANIOCERVICAL JUNCTION: No significant abnormality. ORBITS: No significant abnormality of visualized orbits. SINUSES / MASTOIDS: Significant mucosal thickening in the sphenoid sinus bilaterally and in some of t he ethmoid air cells ADDITIONAL FINDINGS: None. IMPRESSION: No acute focal parenchymal lesion in the brain No change in the right middle frontal gyrus chronic ischemia Signer Name: Yeimi Eduardo MD Signed: 01/24/2021 4:17 PM Workstation Name: [id number]
--- NOTE | 2021-01-24 17:23 | Event Note ---
Date: 01/24/21 I have called patient's spouse Ms. Mary Mustafa at [phone], not coal picker the phone I left a message to call the hospital to discuss Or I would call back in 15 minutes to half an hour. I informed the nurse of my attempt to talk to the family
--- NOTE | 2021-01-24 17:36 | Cat Scan Report ---
CTA HEAD AND NECK WITH CONTRAST HISTORY: CVA COMPARISON: Head CT on 01/24/2021 TECHNIQUE: All CT scans at this location are performed using CT dose reduction for ALARA by means of automated exposure control.. 3-D/MIP reformats postprocessed. Percentage stenosis is determined by d irect quantitative measurements of diseased internal carotid artery diameter compared with normal dis carmen internal carotid artery reference segments or by criteria similar to NASCET where applicable. CONTRAST: 100 ml of Omnipaque 350 FINDINGS: CT HEAD: BRAIN / INTRACRANIAL CONTENTS: No acute hemorrhage, mass effect, midline shift, or hydrocephalus. No appreciable acute large territorial or lacunar infarct. Stable chronic infarct in the right middle fr ontal gyrus. ORBITS: No significant abnormality of visualized orbits. SINUSES / MASTOIDS: No significant abnormality of visualized sinuses and mastoid air cells. CTA HEAD: Intracranial vertebral arteries: No significant abnormality. Basilar artery: No significant abnormality. Posterior cerebral arteries: There is developmental origin left posterior cerebral artery. Intracranial internal carotid arteries: No significant abnormality. Anterior cerebral arteries: No significant abnormality. Middle cerebral arteries: No significant abnormality. Dural venous sinuses:Not optimally opacified. No significant abnormality. CTA NECK: Aortic arch: No significant abnormality. Cervical vertebral arteries: No significant abnormality. Common carotid arteries: No significant abnormality. Cervical internal carotid arteries: No significant abnormality. Additional findings: Endotracheal tube and orogastric tube are in place. IMPRESSION: 1. No significant stenosis or large vessel occlusion in the neck or intracranial arteries. Signer Name: Didier Silva MD Signed: 01/24/2021 5:32 PM Workstation Name: [id number]
[2021-01-24] MEDS: AZITHROMYCIN/NS 500 MG/250 ML 500 MG/250 ML BAG IV SCH (21:31)
[2021-01-24] MEDS: cefTRIAXone/NS 2 GM/100 ML 2 GM/100 ML BAG IV SCH (21:31)
[2021-01-25] MEDS: INSULIN LISPRO 100 UNIT/ML SUB-Q SCH ×4 (00:14→17:53)
[2021-01-25 05:15] LABS: Hematocrit 37.5 % (35.5-45.6); Hemoglobin 12.5 gm/dl (11.8-15.2); Mean Corpuscular HGB Conc 33 % (32-34); Mean Corpuscular Volume 97 fl (84-94); Platelet Count 184 K/mm3 (140-440); Red Blood Count 3.87 M/mm3 (3.65-5.03); Red Cell Distribution Width 15.3 % (13.2-15.2)
[2021-01-25] MEDS: HEPARIN 5,000 UNIT/1 ML VIAL SUB-Q SCH ×3 (05:31→21:44)
[2021-01-25 05:38] LABS: BUN/Creatinine Ratio 28; Blood Urea Nitrogen 34 mg/dL (9-20); Calcium 8.1 mg/dL (8.4-10.2); Hemolysis Index 1
[2021-01-25] MEDS ORDERED: POTASSIUM CHLORIDE 20 MEQ PACKET FEEDTUBE SCH (08:00)
[2021-01-25] MEDS: ASPIRIN 325 MG TAB PO SCH (09:14)
[2021-01-25] MEDS: FAMOTIDINE 20 MG/2 ML INJ IV SCH ×2 (09:14→21:44)
[2021-01-25] MEDS: FUROSEMIDE 40 MG/4 ML INJ IV SCH (09:14)
--- NOTE | 2021-01-25 11:07 | Progress Note ---
Assessment and Plan Assessment and Plan VTE prophylaxis?: Chemical Plan of care discussed with patient/family: Yes #Encephalopathy -65 ys old male presented with diffuse weakness and fever he is lethargic open eyes only to verbal command with difficulty sustaining eyes open -findings from hx and exam is suggestive of under lying ?infection ,toximetabolic and or drug effect -he is with significant asterexsis in both upper extremties with the possibility of hepatic and or renal insuficency can not be excluded -BUN/CR#wnl -Ammonia is# 58 -Ct brain is suggestive right parietal hypodensity -CTA brain and neck are unremarkable -MRI is pending # respiratory failure -required intubation #Left side weakness and slurred speech -CVA can not be excluded -Ct brain showed rigth sided hypodensity with left side weakness -NIH#9 -Hx of AF on Eliquis Hold medication -PT/ST evaluate -Echo cardiogram pending -MRI brain is needed r/o CVA - CTA Brain and neck are unremarkable -ASA 325 mg daily for now/300 mg Rectal -Lipitor 40 mg daily -Lipid profil--LDL#155 -Echo cardiogram showed Ef#50-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 Put the patient on pneumonia pathway. - Oxygen via nasal cannula 3 L/min. DuoNeb by nebulizer every 4 hours as needed. Rocephin 2 g IV daily and Zithromax 500 mg IV daily we will do the blood culture and sputum culture. # Hypoxia -Put the patient on pneumonia pathway. - Oxygen via nasal cannula 3 L/min. -DuoNeb by nebulizer every 4 hours as needed. -ABG # Diabetes -We will put the patient on Humalog sliding scale Accu-Chek every 6 hours with moderate dose coverage. -A1C pending # A-fib -Heparin 5000 units subcu every 8 hours. -We do echocardiogram. -Hold Eliquis for now -ASA 325 mg daily -SQ heparine # Hypertensive urgency -Labetalol 10 mg IV q. 5 minutes as needed. Hydralazine 10 mg IV every 6 hours as needed. Metoprolol 25 mg p.o. daily. We will monitor the blood pressure closely -Allow for permissive HTN,220/120 for first 24 hours # DVT prophylaxis -Heparin 5000 units subcu every 8 hours for DVT prophylaxis. - Pepcid 20 mg p.o. twice daily for GI prophylaxis. -Patient is a full code PLAN 1- MRI brain when possible 2- CTA brain and neck are unremarkable 3- NPO ,IV fluid--Na#147 today 4-Treat underlying infection 5- Hold Eliquis for now --SQ heparine and ASA 325 mg daily 6- Lipitor up to 80 mg 9- Neuro check Q8 hours will follow Subjective Date of service: 01/25/21 Principal diagnosis: CVA Interval history: pt. had respiratory distress required intubation transferred to unit no MRI CTA done is unremarkable in brain or neck Echo showed EF 50-55% he is intubated sedated move all limbs currently on propofol 20 mc. Objective - Vital Sign Vital Signs - 12hr 01/24/21 01/24/21 01/24/21 23:11 23:21 23:30 Temperature Pulse Rate 66 66 63 Pulse Rate [ Apical] Pulse Rate [ From Monitor] Pulse Rate [ Left Dorsalis Pedis] Pulse Rate [ Left Radial] Pulse Rate [ Right Dorsalis Pedis] Pulse Rate [ Right Radial] Respiratory 24 23 23 Rate Blood Pressure 125/66 109/63 105/60 O2 Sat by Pulse 95 96 95 Oximetry 01/24/21 01/24/21 01/24/21 23:41 23:45 23:51 Temperature Pulse Rate 68 66 68 Pulse Rate [ Apical] Pulse Rate [ From Monitor] Pulse Rate [ Left Dorsalis Pedis] Pulse Rate [ Left Radial] Pulse Rate [ Right Dorsalis Pedis] Pulse Rate [ Right Radial] Respiratory 25 H 23 Rate Blood Pressure 105/60 105/60 105/65 O2 Sat by Pulse 96 96 97 Oximetry 01/24/21 01/25/21 01/25/21 23:55 00:00 00:10 Temperature 98.7 F Pulse Rate 68 68 Pulse Rate [ Apical] Pulse Rate [ 68 From Monitor] Pulse Rate [ Left Dorsalis Pedis] Pulse Rate [ Left Radial] Pulse Rate [ Right Dorsalis Pedis] Pulse Rate [ Right Radial] Respiratory 24 21 Rate Blood Pressure 106/67 106/67 O2 Sat by Pulse 98 95 Oximetry 01/25/21 01/25/21 01/25/21 00:21 00:30 00:41 Temperature Pulse Rate 70 69 71 Pulse Rate [ Apical] Pulse Rate [ From Monitor] Pulse Rate [ Left Dorsalis Pedis] Pulse Rate [ Left Radial] Pulse Rate [ Right Dorsalis Pedis] Pulse Rate [ Right Radial] Respiratory 24 21 24 Rate Blood Pressure 107/63 109/63 107/63 O2 Sat by Pulse 97 94 96 Oximetry 01/25/21 01/25/21 01/25/21 00:51 01:00 01:11 Temperature Pulse Rate 67 68 70 Pulse Rate [ Apical] Pulse Rate [ From Monitor] Pulse Rate [ Left Dorsalis Pedis] Pulse Rate [ Left Radial] Pulse Rate [ Right Dorsalis Pedis] Pulse Rate [ Right Radial] Respiratory 17 24 24 Rate Blood Pressure 107/63 115/67 115/67 O2 Sat by Pulse 95 96 95 Oximetry 01/25/21 01/25/21 01/25/21 01:21 01:30 01:41 Temperature Pulse Rate 67 66 68 Pulse Rate [ Apical] Pulse Rate [ From Monitor] Pulse Rate [ Left Dorsalis Pedis] Pulse Rate [ Left Radial] Pulse Rate [ Right Dorsalis Pedis] Pulse Rate [ Right Radial] Respiratory 24 24 24 Rate Blood Pressure 116/70 113/68 113/68 O2 Sat by Pulse 96 95 97 Oximetry 01/25/21 01/25/21 01/25/21 01:51 02:00 02:11 Temperature Pulse Rate 69 73 67 Pulse Rate [ Apical] Pulse Rate [ From Monitor] Pulse Rate [ Left Dorsalis Pedis] Pulse Rate [ Left Radial] Pulse Rate [ Right Dorsalis Pedis] Pulse Rate [ Right Radial] Respiratory 24 24 21 Rate Blood Pressure 117/67 114/67 114/67 O2 Sat by Pulse 96 97 95 Oximetry 01/25/21 01/25/21 01/25/21 02:21 02:30 02:41 Temperature Pulse Rate 69 65 64 Pulse Rate [ Apical] Pulse Rate [ From Monitor] Pulse Rate [ Left Dorsalis Pedis] Pulse Rate [ Left Radial] Pulse Rate [ Right Dorsalis Pedis] Pulse Rate [ Right Radial] Respiratory 18 24 24 Rate Blood Pressure 116/67 117/68 117/68 O2 Sat by Pulse 94 96 96 Oximetry 01/25/21 01/25/21 01/25/21 02:51 03:00 03:11 Temperature Pulse Rate 59 L 74 72 Pulse Rate [ Apical] Pulse Rate [ From Monitor] Pulse Rate [ Left Dorsalis Pedis] Pulse Rate [ Left Radial] Pulse Rate [ Right Dorsalis Pedis] Pulse Rate [ Right Radial] Respiratory 24 24 25 H Rate Blood Pressure 116/66 115/76 115/76 O2 Sat by Pulse 96 97 96 Oximetry 01/25/21 01/25/21 01/25/21 03:20 03:21 03:30 Temperature 99.9 F H Pulse Rate 66 73 Pulse Rate [ Apical] Pulse Rate [ From Monitor] Pulse Rate [ Left Dorsalis Pedis] Pulse Rate [ Left Radial] Pulse Rate [ Right Dorsalis Pedis] Pulse Rate [ Right Radial] Respiratory 24 19 Rate Blood Pressure 116/66 115/70 O2 Sat by Pulse 96 95 Oximetry 01/25/21 01/25/21 01/25/21 03:41 03:51 04:00 Temperature Pulse Rate 69 69 74 Pulse Rate [ Apical] Pulse Rate [ 78 From Monitor] Pulse Rate [ Left Dorsalis Pedis] Pulse Rate [ Left Radial] Pulse Rate [ Right Dorsalis Pedis] Pulse Rate [ Right Radial] Respiratory 24 24 24 Rate Blood Pressure 115/70 115/70 99/72 O2 Sat by Pulse 95 96 96 Oximetry 01/25/21 01/25/21 01/25/21 04:11 04:21 04:31 Temperature Pulse Rate 70 62 75 Pulse Rate [ Apical] Pulse Rate [ From Monitor] Pulse Rate [ Left Dorsalis Pedis] Pulse Rate [ Left Radial] Pulse Rate [ Right Dorsalis Pedis] Pulse Rate [ Right Radial] Respiratory 13 20 20 Rate Blood Pressure 99/72 99/72 123/76 O2 Sat by Pulse 96 97 99 Oximetry 01/25/21 01/25/21 01/25/21 04:41 04:51 05:00 Temperature Pulse Rate 79 74 69 Pulse Rate [ Apical] Pulse Rate [ From Monitor] Pulse Rate [ Left Dorsalis Pedis] Pulse Rate [ Left Radial] Pulse Rate [ Right Dorsalis Pedis] Pulse Rate [ Right Radial] Respiratory 18 20 20 Rate Blood Pressure 123/76 150/71 120/74 O2 Sat by Pulse 96 98 99 Oximetry 01/25/21 01/25/21 01/25/21 05:11 05:21 05:30 Temperature Pulse Rate 74 68 76 Pulse Rate [ Apical] Pulse Rate [ From Monitor] Pulse Rate [ Left Dorsalis Pedis] Pulse Rate [ Left Radial] Pulse Rate [ Right Dorsalis Pedis] Pulse Rate [ Right Radial] Respiratory 19 20 20 Rate Blood Pressure 120/74 126/68 120/69 O2 Sat by Pulse 96 98 96 Oximetry 01/25/21 01/25/21 01/25/21 05:41 05:51 06:00 Temperature Pulse Rate 68 66 69 Pulse Rate [ Apical] Pulse Rate [ From Monitor] Pulse Rate [ Left Dorsalis Pedis] Pulse Rate [ Left Radial] Pulse Rate [ Right Dorsalis Pedis] Pulse Rate [ Right Radial] Respiratory 19 20 21 Rate Blood Pressure 120/69 116/72 124/69 O2 Sat by Pulse 98 98 100 Oximetry 01/25/21 01/25/21 01/25/21 06:11 06:21 06:30 Temperature Pulse Rate 67 72 76 Pulse Rate [ Apical] Pulse Rate [ From Monitor] Pulse Rate [ Left Dorsalis Pedis] Pulse Rate [ Left Radial] Pulse Rate [ Right Dorsalis Pedis] Pulse Rate [ Right Radial] Respiratory 20 15 20 Rate Blood Pressure 124/69 125/76 134/72 O2 Sat by Pulse 100 98 98 Oximetry 01/25/21 01/25/21 01/25/21 06:41 06:51 07:00 Temperature 99.4 F Pulse Rate 88 74 Pulse Rate [ Apical] Pulse Rate [ From Monitor] Pulse Rate [ Left Dorsalis Pedis] Pulse Rate [ Left Radial] Pulse Rate [ Right Dorsalis Pedis] Pulse Rate [ Right Radial] Respiratory 21 20 Rate Blood Pressure 134/72 123/77 O2 Sat by Pulse 98 99 Oximetry 01/25/21 01/25/21 01/25/21 07:01 07:11 07:21 Temperature Pulse Rate 73 68 73 Pulse Rate [ Apical] Pulse Rate [ From Monitor] Pulse Rate [ Left Dorsalis Pedis] Pulse Rate [ Left Radial] Pulse Rate [ Right Dorsalis Pedis] Pulse Rate [ Right Radial] Respiratory 20 20 20 Rate Blood Pressure 107/63 107/63 107/63 O2 Sat by Pulse 99 99 100 Oximetry 01/25/21 01/25/21 01/25/21 07:30 07:41 07:51 Temperature Pulse Rate 72 68 70 Pulse Rate [ Apical] Pulse Rate [ From Monitor] Pulse Rate [ Left Dorsalis Pedis] Pulse Rate [ Left Radial] Pulse Rate [ Right Dorsalis Pedis] Pulse Rate [ Right Radial] Respiratory 20 20 18 Rate Blood Pressure 107/60 107/60 100/66 O2 Sat by Pulse 99 99 98 Oximetry 01/25/21 01/25/21 01/25/21 08:00 08:11 08:21 Temperature Pulse Rate 69 63 65 Pulse Rate [ 60 Apical] Pulse Rate [ 63 From Monitor] Pulse Rate [ 60 Left Dorsalis Pedis] Pulse Rate [ 62 Left Radial] Pulse Rate [ 60 Right Dorsalis Pedis] Pulse Rate [ 62 Right Radial] Respiratory 20 20 20 Rate Blood Pressure 99/60 99/60 98/63 O2 Sat by Pulse 98 99 99 Oximetry 01/25/21 01/25/21 01/25/21 08:30 08:41 08:51 Temperature Pulse Rate 68 76 63 Pulse Rate [ Apical] Pulse Rate [ From Monitor] Pulse Rate [ Left Dorsalis Pedis] Pulse Rate [ Left Radial] Pulse Rate [ Right Dorsalis Pedis] Pulse Rate [ Right Radial] Respiratory 20 20 19 Rate Blood Pressure 93/63 93/63 97/60 O2 Sat by Pulse 99 99 99 Oximetry 01/25/21 01/25/21 01/25/21 09:00 09:10 09:12 Temperature Pulse Rate 59 L 68 66 Pulse Rate [ Apical] Pulse Rate [ From Monitor] Pulse Rate [ Left Dorsalis Pedis] Pulse Rate [ Left Radial] Pulse Rate [ Right Dorsalis Pedis] Pulse Rate [ Right Radial] Respiratory 20 20 Rate Blood Pressure 94/61 94/61 113/76 O2 Sat by Pulse 99 98 99 Oximetry 01/25/21 01/25/21 01/25/21 09:20 09:31 09:41 Temperature Pulse Rate 61 75 78 Pulse Rate [ Apical] Pulse Rate [ From Monitor] Pulse Rate [ Left Dorsalis Pedis] Pulse Rate [ Left Radial] Pulse Rate [ Right Dorsalis Pedis] Pulse Rate [ Right Radial] Respiratory 17 20 20 Rate Blood Pressure 113/76 123/84 113/76 O2 Sat by Pulse 94 99 99 Oximetry 01/25/21 01/25/21 01/25/21 09:51 10:00 10:11 Temperature Pulse Rate 74 77 82 Pulse Rate [ Apical] Pulse Rate [ From Monitor] Pulse Rate [ Left Dorsalis Pedis] Pulse Rate [ Left Radial] Pulse Rate [ Right Dorsalis Pedis] Pulse Rate [ Right Radial] Respiratory 19 12 15 Rate Blood Pressure 101/80 104/74 104/74 O2 Sat by Pulse 98 98 99 Oximetry 01/25/21 01/25/21 10:21 10:30 Temperature Pulse Rate 84 90 Pulse Rate [ Apical] Pulse Rate [ From Monitor] Pulse Rate [ Left Dorsalis Pedis] Pulse Rate [ Left Radial] Pulse Rate [ Right Dorsalis Pedis] Pulse Rate [ Right Radial] Respiratory 14 15 Rate Blood Pressure 109/66 122/86 O2 Sat by Pulse 99 90 Oximetry - General Apperance Constitutional: comfortable, other (intubated move all limbs no clear facial asymmetry) - EENT EENT: PERRL, mucous membranes moist - Respiratory Respiratory: lungs clear, rhonchi - Cardiovascular Cardiovascular: other (AF irregular HR) Extremities: no peripheral edema bilat, no clubbing, cyanosis - Gastrointestinal Gastrointestinal: normoactive bowel sounds - Integumentary Integumentary: normal - Neurologic Cranial nerve examination: PERRL, EOMI, V1/V2/V3 grossly intact, intact Detailed motor examination: grossly full strength in - Laboratory Findings CBC and BMP: 01/25/21 04:35 01/25/21 04:35 Abnormal Lab Findings: Abnormal Labs 01/20/21 01/20/21 01/20/21 19:26 19:26 23:20 Hgb 15.3 H Hct 45.8 H MCV 98 H MCH 33 H RDW Lymph % (Auto) 5.2 L [place] % (Auto) 10.4 H Lymph # (Auto) 0.3 L Seg Neutrophils % 82.9 H Seg Neuts % (Manual) Lymphocytes % (Manual) Lymphocytes # (Manual) INR ABG pH POC ABG pCO2 POC ABG pO2 ABG Oxyhemoglobin ABG Potassium ABG Glucose Sodium Potassium Chloride 97.8 L Carbon Dioxide 33 H BUN Creatinine Glucose 127 H POC Glucose Calcium Phosphorus Magnesium Lactate Dehydrogenase 384 H C-Reactive Protein 2.70 H Albumin Cholesterol LDL Cholesterol Direct Arterial Blood Glucose Arterial Blood Ionized Calcium 01/21/21 01/21/21 01/21/21 00:17 05:45 05:45 Hgb 15.9 H Hct 47.9 H MCV 98 H MCH 33 H RDW 15.3 H Lymph % (Auto) [place] % (Auto) Lymph # (Auto) Seg Neutrophils % Seg Neuts % (Manual) 96.0 H Lymphocytes % (Manual) 3.0 L Lymphocytes # (Manual) 0.2 L INR ABG pH POC ABG pCO2 POC ABG pO2 ABG Oxyhemoglobin ABG Potassium ABG Glucose Sodium Potassium Chloride 96.2 L Carbon Dioxide 35 H BUN Creatinine 0.7 L Glucose 142 H POC Glucose 119 H Calcium Phosphorus Magnesium Lactate Dehydrogenase C-Reactive Protein Albumin Cholesterol 210 H LDL Cholesterol Direct 155 H Arterial Blood Glucose Arterial Blood Ionized Calcium 01/21/21 01/21/21 01/21/21 05:56 09:33 15:13 Hgb Hct 45.8 H MCV 98 H MCH RDW Lymph % (Auto) [place] % (Auto) Lymph # (Auto) Seg Neutrophils % Seg Neuts % (Manual) Lymphocytes % (Manual) Lymphocytes # (Manual) INR ABG pH POC ABG pCO2 POC ABG pO2 ABG Oxyhemoglobin ABG Potassium ABG Glucose Sodium Potassium Chloride Carbon Dioxide BUN Creatinine Glucose POC Glucose 147 H 153 H Calcium Phosphorus Magnesium Lactate Dehydrogenase C-Reactive Protein Albumin Cholesterol LDL Cholesterol Direct Arterial Blood Glucose Arterial Blood Ionized Calcium 01/21/21 01/21/21 01/22/21 15:13 16:33 01:53 Hgb Hct MCV MCH RDW Lymph % (Auto) [place] % (Auto) Lymph # (Auto) Seg Neutrophils % Seg Neuts % (Manual) Lymphocytes % (Manual) Lymphocytes # (Manual) INR 1.14 H ABG pH POC ABG pCO2 POC ABG pO2 ABG Oxyhemoglobin ABG Potassium ABG Glucose Sodium Potassium Chloride Carbon Dioxide BUN Creatinine Glucose POC Glucose 126 H 112 H Calcium Phosphorus Magnesium Lactate Dehydrogenase C-Reactive Protein Albumin Cholesterol LDL Cholesterol Direct Arterial Blood Glucose Arterial Blood Ionized Calcium 01/22/21 01/22/21 01/22/21 06:06 12:05 16:51 Hgb Hct MCV MCH RDW Lymph % (Auto) [place] % (Auto) Lymph # (Auto) Seg Neutrophils % Seg Neuts % (Manual) Lymphocytes % (Manual) Lymphocytes # (Manual) INR ABG pH POC ABG pCO2 POC ABG pO2 ABG Oxyhemoglobin ABG Potassium ABG Glucose Sodium Potassium Chloride Carbon Dioxide BUN Creatinine Glucose POC Glucose 107 H 121 H 164 H Calcium Phosphorus Magnesium Lactate Dehydrogenase C-Reactive Protein Albumin Cholesterol LDL Cholesterol Direct Arterial Blood Glucose Arterial Blood Ionized Calcium 01/22/21 01/23/21 01/23/21 23:10 05:39 06:08 Hgb Hct MCV 101 H MCH 33 H RDW Lymph % (Auto) [place] % (Auto) Lymph # (Auto) Seg Neutrophils % Seg Neuts % (Manual) Lymphocytes % (Manual) Lymphocytes # (Manual) INR ABG pH POC ABG pCO2 POC ABG pO2 ABG Oxyhemoglobin ABG Potassium ABG Glucose Sodium Potassium Chloride Carbon Dioxide BUN Creatinine Glucose POC Glucose 143 H 150 H Calcium Phosphorus Magnesium Lactate Dehydrogenase C-Reactive Protein Albumin Cholesterol LDL Cholesterol Direct Arterial Blood Glucose Arterial Blood Ionized Calcium 01/23/21 01/23/21 01/23/21 11:27 13:55 17:54 Hgb Hct MCV MCH RDW Lymph % (Auto) [place] % (Auto) Lymph # (Auto) Seg Neutrophils % Seg Neuts % (Manual) Lymphocytes % (Manual) Lymphocytes # (Manual) INR ABG pH 7.249 L POC ABG pCO2 83.0 H POC ABG pO2 82.8 L ABG Oxyhemoglobin ABG Potassium 4.8 H ABG Glucose 236 H Sodium Potassium Chloride Carbon Dioxide 33 H BUN 32 H Creatinine 1.6 H D Glucose 146 H POC Glucose 218 H Calcium 8.3 L Phosphorus Magnesium 3.00 H Lactate Dehydrogenase C-Reactive Protein Albumin 3.2 L Cholesterol LDL Cholesterol Direct Arterial Blood Glucose 236 H Arterial Blood Ionized Calcium 4.5 L 01/23/21 01/24/21 01/24/21 17:54 03:11 04:56 Hgb Hct MCV 100 H MCH RDW 15.4 H Lymph % (Auto) [place] % (Auto) Lymph # (Auto) Seg Neutrophils % Seg Neuts % (Manual) Lymphocytes % (Manual) Lymphocytes # (Manual) INR ABG pH POC ABG pCO2 POC ABG pO2 ABG Oxyhemoglobin ABG Potassium ABG Glucose Sodium Potassium Chloride Carbon Dioxide BUN Creatinine Glucose POC Glucose 131 H Calcium Phosphorus 2.00 L Magnesium Lactate Dehydrogenase C-Reactive Protein Albumin Cholesterol LDL Cholesterol Direct Arterial Blood Glucose Arterial Blood Ionized Calcium 01/24/21 01/24/21 01/24/21 04:56 05:00 05:47 Hgb Hct MCV MCH RDW Lymph % (Auto) [place] % (Auto) Lymph # (Auto) Seg Neutrophils % Seg Neuts % (Manual) Lymphocytes % (Manual) Lymphocytes # (Manual) INR ABG pH 7.473 H POC ABG pCO2 POC ABG pO2 53.9 L ABG Oxyhemoglobin 90.0 L ABG Potassium ABG Glucose 127 H Sodium 147 H D Potassium Chloride Carbon Dioxide 36 H BUN 33 H Creatinine 1.5 H Glucose 128 H POC Glucose 141 H Calcium 8.3 L Phosphorus Magnesium Lactate Dehydrogenase C-Reactive Protein Albumin Cholesterol LDL Cholesterol Direct Arterial Blood Glucose 127 H Arterial Blood Ionized Calcium 4.5 L 01/24/21 01/24/21 01/25/21 08:44 11:27 03:57 Hgb Hct MCV MCH RDW Lymph % (Auto) [place] % (Auto) Lymph # (Auto) Seg Neutrophils % Seg Neuts % (Manual) Lymphocytes % (Manual) Lymphocytes # (Manual) INR ABG pH 7.515 H POC ABG pCO2 POC ABG pO2 70.5 L ABG Oxyhemoglobin ABG Potassium ABG Glucose 150 H Sodium Potassium Chloride Carbon Dioxide BUN Creatinine Glucose POC Glucose 127 H Calcium Phosphorus 1.40 L D Magnesium 2.90 H Lactate Dehydrogenase C-Reactive Protein Albumin Cholesterol LDL Cholesterol Direct Arterial Blood Glucose 150 H Arterial Blood Ionized Calcium 4.4 L 01/25/21 01/25/21 01/25/21 04:35 04:35 05:07 Hgb Hct MCV 97 H MCH RDW 15.3 H Lymph % (Auto) [place] % (Auto) Lymph # (Auto) Seg Neutrophils % Seg Neuts % (Manual) Lymphocytes % (Manual) Lymphocytes # (Manual) INR ABG pH POC ABG pCO2 POC ABG pO2 ABG Oxyhemoglobin ABG Potassium ABG Glucose Sodium 147 H Potassium 3.5 L D Chloride Carbon Dioxide 37 H BUN 34 H Creatinine Glucose 127 H POC Glucose 117 H Calcium 8.1 L Phosphorus Magnesium Lactate Dehydrogenase C-Reactive Protein Albumin Cholesterol LDL Cholesterol Direct Arterial Blood Glucose Arterial Blood Ionized Calcium
[2021-01-25] MEDS: ACETAMINOPHEN 325 MG TAB PO PRN ×2 (11:30→16:07)
--- NOTE | 2021-01-25 11:30 | Progress Note ---
Assessment and Plan 65 y/o male with acute respiratory failure secondary to altered mental state from possible stroke vs worsening stroke with hypotension requiring pressors. 01/25/21: If MRI is necessary for further care then need to speak with neuro about transfer to hospital that can perform MRI. Would be willing to accept patient once procedure was done. Wean FiO2 for sats >88%. Keep peep at 10 until FiO2 is around 45-50%. OG in now, can feed and give free water, monitor electrolytes. Guarded Prognosis. 1. Off pressors. 2. Will increase PEEP to 10 and recheck ABG This afternoon. 3. Needs repeat Cultures, most likely neuro but will check given changes. 4. Unable to get MRI as pump for this is broken 5. Needs repeat Head CT 6. Follow up neuro recs 7. Guarded prognosis. CCT 31 minutes. Subjective Date of service: 01/25/21 Principal diagnosis: CVA Interval history: Off sedation patient still unresponsive. Not following commands but moves all extremities. Adjustments made to vent based on ABG. Objective Vital Signs - 12hr 01/24/21 01/24/21 01/24/21 23:30 23:41 23:45 Temperature Pulse Rate 63 68 66 Pulse Rate [ Apical] Pulse Rate [ From Monitor] Pulse Rate [ Left Dorsalis Pedis] Pulse Rate [ Left Radial] Pulse Rate [ Right Dorsalis Pedis] Pulse Rate [ Right Radial] Respiratory 23 25 H Rate Blood Pressure 105/60 105/60 105/60 O2 Sat by Pulse 95 96 96 Oximetry 01/24/21 01/24/21 01/25/21 23:51 23:55 00:00 Temperature 98.7 F Pulse Rate 68 68 Pulse Rate [ Apical] Pulse Rate [ 68 From Monitor] Pulse Rate [ Left Dorsalis Pedis] Pulse Rate [ Left Radial] Pulse Rate [ Right Dorsalis Pedis] Pulse Rate [ Right Radial] Respiratory 23 24 Rate Blood Pressure 105/65 106/67 O2 Sat by Pulse 97 98 Oximetry 01/25/21 01/25/21 01/25/21 00:10 00:21 00:30 Temperature Pulse Rate 68 70 69 Pulse Rate [ Apical] Pulse Rate [ From Monitor] Pulse Rate [ Left Dorsalis Pedis] Pulse Rate [ Left Radial] Pulse Rate [ Right Dorsalis Pedis] Pulse Rate [ Right Radial] Respiratory 21 24 21 Rate Blood Pressure 106/67 107/63 109/63 O2 Sat by Pulse 95 97 94 Oximetry 01/25/21 01/25/21 01/25/21 00:41 00:51 01:00 Temperature Pulse Rate 71 67 68 Pulse Rate [ Apical] Pulse Rate [ From Monitor] Pulse Rate [ Left Dorsalis Pedis] Pulse Rate [ Left Radial] Pulse Rate [ Right Dorsalis Pedis] Pulse Rate [ Right Radial] Respiratory 24 17 24 Rate Blood Pressure 107/63 107/63 115/67 O2 Sat by Pulse 96 95 96 Oximetry 01/25/21 01/25/21 01/25/21 01:11 01:21 01:30 Temperature Pulse Rate 70 67 66 Pulse Rate [ Apical] Pulse Rate [ From Monitor] Pulse Rate [ Left Dorsalis Pedis] Pulse Rate [ Left Radial] Pulse Rate [ Right Dorsalis Pedis] Pulse Rate [ Right Radial] Respiratory 24 24 24 Rate Blood Pressure 115/67 116/70 113/68 O2 Sat by Pulse 95 96 95 Oximetry 01/25/21 01/25/21 01/25/21 01:41 01:51 02:00 Temperature Pulse Rate 68 69 73 Pulse Rate [ Apical] Pulse Rate [ From Monitor] Pulse Rate [ Left Dorsalis Pedis] Pulse Rate [ Left Radial] Pulse Rate [ Right Dorsalis Pedis] Pulse Rate [ Right Radial] Respiratory 24 24 24 Rate Blood Pressure 113/68 117/67 114/67 O2 Sat by Pulse 97 96 97 Oximetry 01/25/21 01/25/21 01/25/21 02:11 02:21 02:30 Temperature Pulse Rate 67 69 65 Pulse Rate [ Apical] Pulse Rate [ From Monitor] Pulse Rate [ Left Dorsalis Pedis] Pulse Rate [ Left Radial] Pulse Rate [ Right Dorsalis Pedis] Pulse Rate [ Right Radial] Respiratory 21 18 24 Rate Blood Pressure 114/67 116/67 117/68 O2 Sat by Pulse 95 94 96 Oximetry 01/25/21 01/25/21 01/25/21 02:41 02:51 03:00 Temperature Pulse Rate 64 59 L 74 Pulse Rate [ Apical] Pulse Rate [ From Monitor] Pulse Rate [ Left Dorsalis Pedis] Pulse Rate [ Left Radial] Pulse Rate [ Right Dorsalis Pedis] Pulse Rate [ Right Radial] Respiratory 24 24 24 Rate Blood Pressure 117/68 116/66 115/76 O2 Sat by Pulse 96 96 97 Oximetry 01/25/21 01/25/21 01/25/21 03:11 03:20 03:21 Temperature 99.9 F H Pulse Rate 72 66 Pulse Rate [ Apical] Pulse Rate [ From Monitor] Pulse Rate [ Left Dorsalis Pedis] Pulse Rate [ Left Radial] Pulse Rate [ Right Dorsalis Pedis] Pulse Rate [ Right Radial] Respiratory 25 H 24 Rate Blood Pressure 115/76 116/66 O2 Sat by Pulse 96 96 Oximetry 01/25/21 01/25/21 01/25/21 03:30 03:41 03:51 Temperature Pulse Rate 73 69 69 Pulse Rate [ Apical] Pulse Rate [ From Monitor] Pulse Rate [ Left Dorsalis Pedis] Pulse Rate [ Left Radial] Pulse Rate [ Right Dorsalis Pedis] Pulse Rate [ Right Radial] Respiratory 19 24 24 Rate Blood Pressure 115/70 115/70 115/70 O2 Sat by Pulse 95 95 96 Oximetry 01/25/21 01/25/21 01/25/21 04:00 04:11 04:21 Temperature Pulse Rate 74 70 62 Pulse Rate [ Apical] Pulse Rate [ 78 From Monitor] Pulse Rate [ Left Dorsalis Pedis] Pulse Rate [ Left Radial] Pulse Rate [ Right Dorsalis Pedis] Pulse Rate [ Right Radial] Respiratory 24 13 20 Rate Blood Pressure 99/72 99/72 99/72 O2 Sat by Pulse 96 96 97 Oximetry 01/25/21 01/25/21 01/25/21 04:31 04:41 04:51 Temperature Pulse Rate 75 79 74 Pulse Rate [ Apical] Pulse Rate [ From Monitor] Pulse Rate [ Left Dorsalis Pedis] Pulse Rate [ Left Radial] Pulse Rate [ Right Dorsalis Pedis] Pulse Rate [ Right Radial] Respiratory 20 18 20 Rate Blood Pressure 123/76 123/76 150/71 O2 Sat by Pulse 99 96 98 Oximetry 01/25/21 01/25/21 01/25/21 05:00 05:11 05:21 Temperature Pulse Rate 69 74 68 Pulse Rate [ Apical] Pulse Rate [ From Monitor] Pulse Rate [ Left Dorsalis Pedis] Pulse Rate [ Left Radial] Pulse Rate [ Right Dorsalis Pedis] Pulse Rate [ Right Radial] Respiratory 20 19 20 Rate Blood Pressure 120/74 120/74 126/68 O2 Sat by Pulse 99 96 98 Oximetry 01/25/21 01/25/21 01/25/21 05:30 05:41 05:51 Temperature Pulse Rate 76 68 66 Pulse Rate [ Apical] Pulse Rate [ From Monitor] Pulse Rate [ Left Dorsalis Pedis] Pulse Rate [ Left Radial] Pulse Rate [ Right Dorsalis Pedis] Pulse Rate [ Right Radial] Respiratory 20 19 20 Rate Blood Pressure 120/69 120/69 116/72 O2 Sat by Pulse 96 98 98 Oximetry 01/25/21 01/25/21 01/25/21 06:00 06:11 06:21 Temperature Pulse Rate 69 67 72 Pulse Rate [ Apical] Pulse Rate [ From Monitor] Pulse Rate [ Left Dorsalis Pedis] Pulse Rate [ Left Radial] Pulse Rate [ Right Dorsalis Pedis] Pulse Rate [ Right Radial] Respiratory 21 20 15 Rate Blood Pressure 124/69 124/69 125/76 O2 Sat by Pulse 100 100 98 Oximetry 01/25/21 01/25/21 01/25/21 06:30 06:41 06:51 Temperature Pulse Rate 76 88 74 Pulse Rate [ Apical] Pulse Rate [ From Monitor] Pulse Rate [ Left Dorsalis Pedis] Pulse Rate [ Left Radial] Pulse Rate [ Right Dorsalis Pedis] Pulse Rate [ Right Radial] Respiratory 20 21 20 Rate Blood Pressure 134/72 134/72 123/77 O2 Sat by Pulse 98 98 99 Oximetry 01/25/21 01/25/21 01/25/21 07:00 07:01 07:11 Temperature 99.4 F Pulse Rate 73 68 Pulse Rate [ Apical] Pulse Rate [ From Monitor] Pulse Rate [ Left Dorsalis Pedis] Pulse Rate [ Left Radial] Pulse Rate [ Right Dorsalis Pedis] Pulse Rate [ Right Radial] Respiratory 20 20 Rate Blood Pressure 107/63 107/63 O2 Sat by Pulse 99 99 Oximetry 01/25/21 01/25/21 01/25/21 07:21 07:30 07:41 Temperature Pulse Rate 73 72 68 Pulse Rate [ Apical] Pulse Rate [ From Monitor] Pulse Rate [ Left Dorsalis Pedis] Pulse Rate [ Left Radial] Pulse Rate [ Right Dorsalis Pedis] Pulse Rate [ Right Radial] Respiratory 20 20 20 Rate Blood Pressure 107/63 107/60 107/60 O2 Sat by Pulse 100 99 99 Oximetry 01/25/21 01/25/21 01/25/21 07:51 08:00 08:11 Temperature Pulse Rate 70 69 63 Pulse Rate [ 60 Apical] Pulse Rate [ 63 From Monitor] Pulse Rate [ 60 Left Dorsalis Pedis] Pulse Rate [ 62 Left Radial] Pulse Rate [ 60 Right Dorsalis Pedis] Pulse Rate [ 62 Right Radial] Respiratory 18 20 20 Rate Blood Pressure 100/66 99/60 99/60 O2 Sat by Pulse 98 98 99 Oximetry 01/25/21 01/25/21 01/25/21 08:21 08:30 08:41 Temperature Pulse Rate 65 68 76 Pulse Rate [ Apical] Pulse Rate [ From Monitor] Pulse Rate [ Left Dorsalis Pedis] Pulse Rate [ Left Radial] Pulse Rate [ Right Dorsalis Pedis] Pulse Rate [ Right Radial] Respiratory 20 20 20 Rate Blood Pressure 98/63 93/63 93/63 O2 Sat by Pulse 99 99 99 Oximetry 01/25/21 01/25/21 01/25/21 08:51 09:00 09:10 Temperature Pulse Rate 63 59 L 68 Pulse Rate [ Apical] Pulse Rate [ From Monitor] Pulse Rate [ Left Dorsalis Pedis] Pulse Rate [ Left Radial] Pulse Rate [ Right Dorsalis Pedis] Pulse Rate [ Right Radial] Respiratory 19 20 20 Rate Blood Pressure 97/60 94/61 94/61 O2 Sat by Pulse 99 99 98 Oximetry 01/25/21 01/25/21 01/25/21 09:12 09:20 09:31 Temperature Pulse Rate 66 61 75 Pulse Rate [ Apical] Pulse Rate [ From Monitor] Pulse Rate [ Left Dorsalis Pedis] Pulse Rate [ Left Radial] Pulse Rate [ Right Dorsalis Pedis] Pulse Rate [ Right Radial] Respiratory 17 20 Rate Blood Pressure 113/76 113/76 123/84 O2 Sat by Pulse 99 94 99 Oximetry 01/25/21 01/25/21 01/25/21 09:41 09:51 10:00 Temperature Pulse Rate 78 74 77 Pulse Rate [ Apical] Pulse Rate [ From Monitor] Pulse Rate [ Left Dorsalis Pedis] Pulse Rate [ Left Radial] Pulse Rate [ Right Dorsalis Pedis] Pulse Rate [ Right Radial] Respiratory 20 19 12 Rate Blood Pressure 113/76 101/80 104/74 O2 Sat by Pulse 99 98 98 Oximetry 01/25/21 01/25/21 01/25/21 10:11 10:21 10:30 Temperature Pulse Rate 82 84 90 Pulse Rate [ Apical] Pulse Rate [ From Monitor] Pulse Rate [ Left Dorsalis Pedis] Pulse Rate [ Left Radial] Pulse Rate [ Right Dorsalis Pedis] Pulse Rate [ Right Radial] Respiratory 15 14 15 Rate Blood Pressure 104/74 109/66 122/86 O2 Sat by Pulse 99 99 90 Oximetry 01/25/21 01/25/21 01/25/21 10:41 10:51 11:00 Temperature Pulse Rate 94 H 90 94 H Pulse Rate [ Apical] Pulse Rate [ From Monitor] Pulse Rate [ Left Dorsalis Pedis] Pulse Rate [ Left Radial] Pulse Rate [ Right Dorsalis Pedis] Pulse Rate [ Right Radial] Respiratory 16 17 17 Rate Blood Pressure 122/86 120/72 107/70 O2 Sat by Pulse 94 94 94 Oximetry 01/25/21 01/25/21 11:11 11:21 Temperature Pulse Rate 92 H 82 Pulse Rate [ Apical] Pulse Rate [ From Monitor] Pulse Rate [ Left Dorsalis Pedis] Pulse Rate [ Left Radial] Pulse Rate [ Right Dorsalis Pedis] Pulse Rate [ Right Radial] Respiratory 15 16 Rate Blood Pressure 107/70 115/67 O2 Sat by Pulse 95 96 Oximetry Constitutional: no acute distress Eyes: non-icteric ENT: other (orally intubated.) Neck: supple, other (large in circumference) Ascultation: Bilateral: diminished breath sounds Percussion: Bilateral: not dull Cardiovascular: regular rate and rhythm Gastrointestinal: normoactive bowel sounds Integumentary: normal Neurologic: unable to assess CBC and BMP: 01/25/21 04:35 01/25/21 04:35 ABG, PT/INR, D-dimer: ABG ABG pH 7.515 (7.320-7.450) H 01/25/21 03:57 POC ABG pCO2 44.2 mmHg (32.0-48.0) 01/25/21 03:57 POC ABG pO2 70.5 mmHg (83-108) L 01/25/21 03:57 POC ABG HCO3 34.9 01/25/21 03:57 ABG O2 Saturation 95.3 (0-100) 01/25/21 03:57 PT/INR, D-dimer PT 14.5 Sec. (12.2-14.9) 01/21/21 15:13 INR 1.14 (0.87-1.13) H 01/21/21 15:13 D-Dimer 229.34 ng/mlDDU (0-234) 01/20/21 23:20 Abnormal lab findings: Abnormal Labs 01/20/21 01/20/21 01/20/21 19:26 19:26 23:20 Hgb 15.3 H Hct 45.8 H MCV 98 H MCH 33 H RDW Lymph % (Auto) 5.2 L [place] % (Auto) 10.4 H Lymph # (Auto) 0.3 L Seg Neutrophils % 82.9 H Seg Neuts % (Manual) Lymphocytes % (Manual) Lymphocytes # (Manual) INR ABG pH POC ABG pCO2 POC ABG pO2 ABG Oxyhemoglobin ABG Potassium ABG Glucose Sodium Potassium Chloride 97.8 L Carbon Dioxide 33 H BUN Creatinine Glucose 127 H POC Glucose Calcium Phosphorus Magnesium Lactate Dehydrogenase 384 H C-Reactive Protein 2.70 H Albumin Cholesterol LDL Cholesterol Direct Arterial Blood Glucose Arterial Blood Ionized Calcium 01/21/21 01/21/21 01/21/21 00:17 05:45 05:45 Hgb 15.9 H Hct 47.9 H MCV 98 H MCH 33 H RDW 15.3 H Lymph % (Auto) [place] % (Auto) Lymph # (Auto) Seg Neutrophils % Seg Neuts % (Manual) 96.0 H Lymphocytes % (Manual) 3.0 L Lymphocytes # (Manual) 0.2 L INR ABG pH POC ABG pCO2 POC ABG pO2 ABG Oxyhemoglobin ABG Potassium ABG Glucose Sodium Potassium Chloride 96.2 L Carbon Dioxide 35 H BUN Creatinine 0.7 L Glucose 142 H POC Glucose 119 H Calcium Phosphorus Magnesium Lactate Dehydrogenase C-Reactive Protein Albumin Cholesterol 210 H LDL Cholesterol Direct 155 H Arterial Blood Glucose Arterial Blood Ionized Calcium 01/21/21 01/21/21 01/21/21 05:56 09:33 15:13 Hgb Hct 45.8 H MCV 98 H MCH RDW Lymph % (Auto) [place] % (Auto) Lymph # (Auto) Seg Neutrophils % Seg Neuts % (Manual) Lymphocytes % (Manual) Lymphocytes # (Manual) INR ABG pH POC ABG pCO2 POC ABG pO2 ABG Oxyhemoglobin ABG Potassium ABG Glucose Sodium Potassium Chloride Carbon Dioxide BUN Creatinine Glucose POC Glucose 147 H 153 H Calcium Phosphorus Magnesium Lactate Dehydrogenase C-Reactive Protein Albumin Cholesterol LDL Cholesterol Direct Arterial Blood Glucose Arterial Blood Ionized Calcium 01/21/21 01/21/21 01/22/21 15:13 16:33 01:53 Hgb Hct MCV MCH RDW Lymph % (Auto) [place] % (Auto) Lymph # (Auto) Seg Neutrophils % Seg Neuts % (Manual) Lymphocytes % (Manual) Lymphocytes # (Manual) INR 1.14 H ABG pH POC ABG pCO2 POC ABG pO2 ABG Oxyhemoglobin ABG Potassium ABG Glucose Sodium Potassium Chloride Carbon Dioxide BUN Creatinine Glucose POC Glucose 126 H 112 H Calcium Phosphorus Magnesium Lactate Dehydrogenase C-Reactive Protein Albumin Cholesterol LDL Cholesterol Direct Arterial Blood Glucose Arterial Blood Ionized Calcium 01/22/21 01/22/21 01/22/21 06:06 12:05 16:51 Hgb Hct MCV MCH RDW Lymph % (Auto) [place] % (Auto) Lymph # (Auto) Seg Neutrophils % Seg Neuts % (Manual) Lymphocytes % (Manual) Lymphocytes # (Manual) INR ABG pH POC ABG pCO2 POC ABG pO2 ABG Oxyhemoglobin ABG Potassium ABG Glucose Sodium Potassium Chloride Carbon Dioxide BUN Creatinine Glucose POC Glucose 107 H 121 H 164 H Calcium Phosphorus Magnesium Lactate Dehydrogenase C-Reactive Protein Albumin Cholesterol LDL Cholesterol Direct Arterial Blood Glucose Arterial Blood Ionized Calcium 01/22/21 01/23/21 01/23/21 23:10 05:39 06:08 Hgb Hct MCV 101 H MCH 33 H RDW Lymph % (Auto) [place] % (Auto) Lymph # (Auto) Seg Neutrophils % Seg Neuts % (Manual) Lymphocytes % (Manual) Lymphocytes # (Manual) INR ABG pH POC ABG pCO2 POC ABG pO2 ABG Oxyhemoglobin ABG Potassium ABG Glucose Sodium Potassium Chloride Carbon Dioxide BUN Creatinine Glucose POC Glucose 143 H 150 H Calcium Phosphorus Magnesium Lactate Dehydrogenase C-Reactive Protein Albumin Cholesterol LDL Cholesterol Direct Arterial Blood Glucose Arterial Blood Ionized Calcium 01/23/21 01/23/21 01/23/21 11:27 13:55 17:54 Hgb Hct MCV MCH RDW Lymph % (Auto) [place] % (Auto) Lymph # (Auto) Seg Neutrophils % Seg Neuts % (Manual) Lymphocytes % (Manual) Lymphocytes # (Manual) INR ABG pH 7.249 L POC ABG pCO2 83.0 H POC ABG pO2 82.8 L ABG Oxyhemoglobin ABG Potassium 4.8 H ABG Glucose 236 H Sodium Potassium Chloride Carbon Dioxide 33 H BUN 32 H Creatinine 1.6 H D Glucose 146 H POC Glucose 218 H Calcium 8.3 L Phosphorus Magnesium 3.00 H Lactate Dehydrogenase C-Reactive Protein Albumin 3.2 L Cholesterol LDL Cholesterol Direct Arterial Blood Glucose 236 H Arterial Blood Ionized Calcium 4.5 L 01/23/21 01/24/21 01/24/21 17:54 03:11 04:56 Hgb Hct MCV 100 H MCH RDW 15.4 H Lymph % (Auto) [place] % (Auto) Lymph # (Auto) Seg Neutrophils % Seg Neuts % (Manual) Lymphocytes % (Manual) Lymphocytes # (Manual) INR ABG pH POC ABG pCO2 POC ABG pO2 ABG Oxyhemoglobin ABG Potassium ABG Glucose Sodium Potassium Chloride Carbon Dioxide BUN Creatinine Glucose POC Glucose 131 H Calcium Phosphorus 2.00 L Magnesium Lactate Dehydrogenase C-Reactive Protein Albumin Cholesterol LDL Cholesterol Direct Arterial Blood Glucose Arterial Blood Ionized Calcium 01/24/21 01/24/21 01/24/21 04:56 05:00 05:47 Hgb Hct MCV MCH RDW Lymph % (Auto) [place] % (Auto) Lymph # (Auto) Seg Neutrophils % Seg Neuts % (Manual) Lymphocytes % (Manual) Lymphocytes # (Manual) INR ABG pH 7.473 H POC ABG pCO2 POC ABG pO2 53.9 L ABG Oxyhemoglobin 90.0 L ABG Potassium ABG Glucose 127 H Sodium 147 H D Potassium Chloride Carbon Dioxide 36 H BUN 33 H Creatinine 1.5 H Glucose 128 H POC Glucose 141 H Calcium 8.3 L Phosphorus Magnesium Lactate Dehydrogenase C-Reactive Protein Albumin Cholesterol LDL Cholesterol Direct Arterial Blood Glucose 127 H Arterial Blood Ionized Calcium 4.5 L 01/24/21 01/24/21 01/25/21 08:44 11:27 03:57 Hgb Hct MCV MCH RDW Lymph % (Auto) [place] % (Auto) Lymph # (Auto) Seg Neutrophils % Seg Neuts % (Manual) Lymphocytes % (Manual) Lymphocytes # (Manual) INR ABG pH 7.515 H POC ABG pCO2 POC ABG pO2 70.5 L ABG Oxyhemoglobin ABG Potassium ABG Glucose 150 H Sodium Potassium Chloride Carbon Dioxide BUN Creatinine Glucose POC Glucose 127 H Calcium Phosphorus 1.40 L D Magnesium 2.90 H Lactate Dehydrogenase C-Reactive Protein Albumin Cholesterol LDL Cholesterol Direct Arterial Blood Glucose 150 H Arterial Blood Ionized Calcium 4.4 L 01/25/21 01/25/21 01/25/21 04:35 04:35 05:07 Hgb Hct MCV 97 H MCH RDW 15.3 H Lymph % (Auto) [place] % (Auto) Lymph # (Auto) Seg Neutrophils % Seg Neuts % (Manual) Lymphocytes % (Manual) Lymphocytes # (Manual) INR ABG pH POC ABG pCO2 POC ABG pO2 ABG Oxyhemoglobin ABG Potassium ABG Glucose Sodium 147 H Potassium 3.5 L D Chloride Carbon Dioxide 37 H BUN 34 H Creatinine Glucose 127 H POC Glucose 117 H Calcium 8.1 L Phosphorus Magnesium Lactate Dehydrogenase C-Reactive Protein Albumin Cholesterol LDL Cholesterol Direct Arterial Blood Glucose Arterial Blood Ionized Calcium Allied health notes reviewed: nursing
--- NOTE | 2021-01-25 12:26 | Progress Note ---
<ANJELICAKANEMARÍA ELENA HGood - Last Filed: 01/25/21 13:32> Assessment and Plan Assessment and plan: This is a 65-year-old male with atrial fibrillation on Eliquis, hypertension, and diabetes who is admitted with suspected pneumonia, acute hypoxic respiratory failure, COVID-19 PUI, rule out CVA and with hypertensive urgency Acute hypoxic respiratory failure Acute CVA (? Right parietal lobe infarct) Shock/hypotension Seizure Right middle and lower lobe pneumonia Acute metabolic encephalopathy Hypertensive urgency Type 2 diabetes Atrial fibrillation Hypernatremia Hypokalemia -CCM, cardiology, neurology consulted, appreciate recommendations -01/20 CT head shows a well-defined area of decreased attenuation in the right parietal lobe, limited imagery secondary to artifact. MRI brain recommended for further work-up -01/20 CT chest shows possible mild inflammatory process in the right middle and right lower lobe -01/23 CT head shows no acute focal parenchymal lesion in the brain, no change to right middle frontal gyrus chronic ischemia -01/23 CXR shows right infrahilar opacity consistent with large areas of atelectasis of the right middle or lower lobe. 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 -MRI brain pending -EEG pending -Intubated 01/23 -VAP bundle, wean mechanical ventilation as tolerated -IV antibiotics -Aspirin, Lipitor -Sedated with propofol -s/p vasopressor support with Levophed -Hold antihypertensive regimen and setting of needing vasopressor support, resume as tolerated -Neurochecks per protocol -Accu-Cheks every 6, SSI -Seizure precautions -Tube feedings -Trend BMP, CBC DVT/GI prophylaxis: Heparin subcu, PPI Disposition: ICU The high probability of a clinically significant, sudden or life threatening det erioration of the [Respiratory, neuro, metabolic, infectious,] system(s) required my full and direct attention, intervention and personal management. The aggregate critical care time was [35] minutes. This time is in addition to time spent performing reported procedures but includes the following: [x] Data Review and interpretation [x] Patient assessment and monitoring of vital signs [x] Documentation [x] Medication orders and management History Interval history: This is a 65-year-old male with atrial fibrillation on Eliquis, hypertension, and diabetes who presents to the emergency on 01/20 with complaints of progressive generalized weakness, gait unsteadiness, cough and fever. Upon EMS arrival patient was febrile with a temperature of 102 and hypoxic with SPO2 in the 70s on room air. Work-up in the emergency department included a CT scan of his chest which showed possible mild inflammatory process in his right middle and lower lobe, CT head was admitted secondary to artifact but noted a low- density area in the right parietal lobe. Patient was admitted to the hospitalist service with suspected pneumonia, acute hypoxic respiratory failure, COVID-19 PUI, rule out CVA and with hypertensive urgency. Neurology was consulted. 01/22/2021; neuro work-up is in progress, follow PT OT eval. Neurology consult, continue antibiotics and supportive care 01/23/2021; patient went into acute respiratory failure requiring intubation and ventilatory support. Patient is transferred to ICU, pulmonary critical consulted, hypotensive started on Levophed. Pulmonary critical, cardiology and neurology following the patient. updated by Dr. Cho 01/24: Patient is awaiting further neuro imaging and is restrained the time my examination. Patient is not sedated and on assist control tidal volume 500, rate of 24, PEEP of 8 on FiO2 70%. Patient is severely agitated and is started on propofol drip per [facility] [place]. He has hypophosphatemia today which was repleted. We will repeat BMP and phosphate level in the a.m. 01/25: Patient has hypokalemia today which was repleted today. Cr decreased to 1.2 from 1.5. Hypophosphatemia is resolved. Awaiting MRI brain. Sedated with propofol and on AC TV 500, R 20, PEEP 10, on FiO2 80%. Levophed was off at the time of my examination. Awaiting MRI Hospitalist Physical - Constitutional Vitals: Temp Pulse Resp BP Pulse Ox 100.0 F H 82 16 115/67 96 01/25/21 11:37 01/25/21 11:21 01/25/21 11:21 01/25/21 11:21 01/25/21 11:21 General appearance: Present: no acute distress, well-nourished, obese, other (sedated on mechanical ventilation) - EENT Eyes: Present: PERRL ENT: dentition normal - Neck Neck: Present: normal ROM - Respiratory Respiratory effort: normal Respiratory: bilateral: CTA - Cardiovascular Rhythm: regular Heart Sounds: Present: S1 & S2. Absent: systolic murmur, diastolic murmur - Extremities Extremities: no ischemia, pulses intact, pulses symmetrical, No edema, normal temperature, normal color Peripheral Pulses: within normal limits - Abdominal General gastrointestinal: soft, non-tender, non-distended, normal bowel sounds - Integumentary Integumentary: Present: warm, dry - Psychiatric Psychiatric: other (does not follow commands) - Neurologic Neurologic: moves all extremities - Allied Health Allied health notes reviewed: nursing, social work HEART Score - HEART Score Troponin: Troponin T < 0.010 ng/mL (0.00-0.029) 01/20/21 19:26 Results - Labs CBC & Chem 7: 01/25/21 04:35 01/25/21 04:35 Labs: Laboratory Last Values WBC 6.7 K/mm3 (4.5-11.0) 01/25/21 04:35 RBC 3.87 M/mm3 (3.65-5.03) 01/25/21 04:35 Hgb 12.5 gm/dl (11.8-15.2) 01/25/21 04:35 Hct 37.5 % (35.5-45.6) D 01/25/21 04:35 MCV 97 fl (84-94) H 01/25/21 04:35 MCH 32 pg (28-32) 01/25/21 04:35 MCHC 33 % (32-34) 01/25/21 04:35 RDW 15.3 % (13.2-15.2) H 01/25/21 04:35 Plt Count 184 K/mm3 (140-440) 01/25/21 04:35 Lymph % (Auto) 5.2 % (13.4-35.0) L 01/20/21 19:26 [place] % (Auto) 10.4 % (0.0-7.3) H 01/20/21 19:26 Eos % (Auto) 0.5 % (0.0-4.3) 01/20/21 19:26 Baso % (Auto) 1.0 % (0.0-1.8) 01/20/21 19:26 Lymph # (Auto) 0.3 K/mm3 (1.2-5.4) L 01/20/21 19:26 [place] # (Auto) 0.7 K/mm3 (0.0-0.8) 01/20/21 19:26 Eos # (Auto) 0.0 K/mm3 (0.0-0.4) 01/20/21 19:26 Baso # (Auto) 0.1 K/mm3 (0.0-0.1) 01/20/21 19:26 Add Manual Diff Complete 01/21/21 05:45 Total Counted 100 01/21/21 05:45 Seg Neutrophils % Freight Conductor 01/21/21 05:45 Seg Neuts % (Manual) 96.0 % (40.0-70.0) H 01/21/21 05:45 Lymphocytes % (Manual) 3.0 % (13.4-35.0) L 01/21/21 05:45 Monocytes % (Manual) 1.0 % (0.0-7.3) 01/21/21 05:45 Nucleated RBC % Not Reportable 01/21/21 05:45 Seg Neutrophils # 5.3 K/mm3 (1.8-7.7) 01/20/21 19:26 Seg Neutrophils # Man 6.8 K/mm3 (1.8-7.7) 01/21/21 05:45 Band Neutrophils # 0.0 K/mm3 01/21/21 05:45 Lymphocytes # (Manual) 0.2 K/mm3 (1.2-5.4) L 01/21/21 05:45 Abs React Lymphs (Man) 0.0 K/mm3 01/21/21 05:45 Monocytes # (Manual) 0.1 K/mm3 (0.0-0.8) 01/21/21 05:45 Eosinophils # (Manual) 0.0 K/mm3 (0.0-0.4) 01/21/21 05:45 Basophils # (Manual) 0.0 K/mm3 (0.0-0.1) 01/21/21 05:45 Metamyelocytes # 0.0 K/mm3 01/21/21 05:45 Myelocytes # 0.0 K/mm3 01/21/21 05:45 Promyelocytes # 0.0 K/mm3 01/21/21 05:45 Blast Cells # 0.0 K/mm3 01/21/21 05:45 WBC Morphology Not Reportable 01/21/21 05:45 Hypersegmented Neuts Not Reportable 01/21/21 05:45 Hyposegmented Neuts Not Reportable 01/21/21 05:45 Hypogranular Neuts Not Reportable 01/21/21 05:45 Smudge Cells Not Reportable 01/21/21 05:45 Toxic Granulation Not Reportable 01/21/21 05:45 Toxic Vacuolation Not Reportable 01/21/21 05:45 Dohle Bodies Not Reportable 01/21/21 05:45 Pelger-Huet Anomaly Not Reportable 01/21/21 05:45 Masood Rods Not Reportable 01/21/21 05:45 Platelet Estimate Consistent w auto 01/21/21 05:45 Clumped Platelets Not Reportable 01/21/21 05:45 Plt Clumps, EDTA Not Reportable 01/21/21 05:45 Large Platelets Not Reportable 01/21/21 05:45 Giant Platelets Not Reportable 01/21/21 05:45 Platelet Satelliting Not Reportable 01/21/21 05:45 Plt Morphology Comment Not Reportable 01/21/21 05:45 RBC Morphology Normal 01/21/21 05:45 Dimorphic RBCs Not Reportable 01/21/21 05:45 Polychromasia Not Reportable 01/21/21 05:45 Hypochromasia Not Reportable 01/21/21 05:45 Poikilocytosis Not Reportable 01/21/21 05:45 Anisocytosis Not Reportable 01/21/21 05:45 Microcytosis Not Reportable 01/21/21 05:45 Macrocytosis Not Reportable 01/21/21 05:45 Spherocytes Not Reportable 01/21/21 05:45 Pappenheimer Bodies Not Reportable 01/21/21 05:45 Sickle Cells Not Reportable 01/21/21 05:45 Target Cells Not Reportable 01/21/21 05:45 Tear Drop Cells Not Reportable 01/21/21 05:45 Ovalocytes Not Reportable 01/21/21 05:45 Helmet Cells Not Reportable 01/21/21 05:45 Ramírez-Tuscarora Bodies Not Reportable 01/21/21 05:45 Cuthbert Rings Not Reportable 01/21/21 05:45 [place] Cells Not Reportable 01/21/21 05:45 Bite Cells Not Reportable 01/21/21 05:45 Crenated Cell Not Reportable 01/21/21 05:45 Elliptocytes Not Reportable 01/21/21 05:45 Acanthocytes (Spur) Not Reportable 01/21/21 05:45 Rouleaux Not Reportable 01/21/21 05:45 Hemoglobin C Crystals Not Reportable 01/21/21 05:45 Schistocytes Not Reportable 01/21/21 05:45 Malaria parasites Not Reportable 01/21/21 05:45 Roney Bodies Not Reportable 01/21/21 05:45 Hem Pathologist Commnt No 01/21/21 05:45 PT 14.5 Sec. (12.2-14.9) 01/21/21 15:13 INR 1.14 (0.87-1.13) H 01/21/21 15:13 APTT 30.5 Sec. (24.2-36.6) 01/21/21 15:13 D-Dimer 229.34 ng/mlDDU (0-234) 01/20/21 23:20 ABG pH 7.515 (7.320-7.450) H 01/25/21 03:57 POC ABG pCO2 44.2 mmHg (32.0-48.0) 01/25/21 03:57 POC ABG pO2 70.5 mmHg (83-108) L 01/25/21 03:57 POC ABG HCO3 34.9 01/25/21 03:57 ABG O2 Saturation 95.3 (0-100) 01/25/21 03:57 POC ABG Base Excess 10.7 01/25/21 03:57 ABG Hemoglobin 13.2 (12.0-17.5) 01/25/21 03:57 ABG Oxyhemoglobin 94.6 (94-98) 01/25/21 03:57 ABG Methemoglobin 0 (0.0-1.5) 01/25/21 03:57 ABG Sodium 144.3 mmol/L (136.0-145.0) 01/25/21 03:57 ABG Potassium 3.7 mmol/L (3.40-4.50) 01/25/21 03:57 ABG Chloride 104.0 mmol/L (98-107) 01/25/21 03:57 ABG Glucose 150 mg/dL (65-95) H 01/25/21 03:57 Carboxyhemoglobin 0.7 (0.5-1.5) 01/25/21 03:57 FiO2 % 85.0 01/25/21 03:57 Sodium 147 mmol/L (137-145) H 01/25/21 04:35 Potassium 3.5 mmol/L (3.6-5.0) L D 01/25/21 04:35 Chloride 104.3 mmol/L (98-107) 01/25/21 04:35 Carbon Dioxide 37 mmol/L (22-30) H 01/25/21 04:35 Anion Gap 9 mmol/L 01/25/21 04:35 BUN 34 mg/dL (9-20) H 01/25/21 04:35 Creatinine 1.2 mg/dL (0.8-1.3) 01/25/21 04:35 Estimated GFR > 60 ml/min 01/25/21 04:35 BUN/Creatinine Ratio 28 % 01/25/21 04:35 Glucose 127 mg/dL (75-100) H 01/25/21 04:35 POC Glucose 117 mg/dL (70-105) H 01/25/21 05:07 Lactic Acid 1.50 mmol/L (0.7-2.0) 01/20/21 19:26 Calcium 8.1 mg/dL (8.4-10.2) L 01/25/21 04:35 Phosphorus 2.50 mg/dL (2.5-4.5) D 01/25/21 09:40 Magnesium 2.90 mg/dL (1.7-2.3) H 01/24/21 08:44 Ferritin 128.4 ng/mL (30.0-300.0) 01/20/21 23:20 Total Bilirubin 0.80 mg/dL (0.1-1.2) 01/23/21 17:54 AST 35 units/L (5-40) 01/23/21 17:54 ALT 31 units/L (7-56) 01/23/21 17:54 Alkaline Phosphatase 78 units/L (35-129) 01/23/21 17:54 Ammonia 58.0 umol/L (25-60) 01/22/21 14:19 Lactate Dehydrogenase 384 units/L (91-180) H 01/20/21 23:20 Troponin T < 0.010 ng/mL (0.00-0.029) 01/20/21 19:26 C-Reactive Protein 2.70 mg/dL (0.00-1.30) H 01/20/21 23:20 Total Protein 6.4 g/dL (6.3-8.2) 01/23/21 17:54 Albumin 3.2 g/dL (3.9-5) L 01/23/21 17:54 Albumin/Globulin Ratio 1.0 % 01/23/21 17:54 Triglycerides 49 mg/dL (2-149) 01/21/21 05:45 Cholesterol 210 mg/dL (50-199) H 01/21/21 05:45 LDL Cholesterol Direct 155 mg/dL (50-130) H 01/21/21 05:45 HDL Cholesterol 57 mg/dL (40-59) 01/21/21 05:45 Cholesterol/HDL Ratio 3.68 % 01/21/21 05:45 Procalcitonin 0.13 ng/mL (<0.15) 01/20/21 23:20 Arterial Blood Glucose 150 mg/dL (65-95) H 01/25/21 03:57 Arterial Blood Ionized Calcium 4.4 mg/dL (4.6-5.3) L 01/25/21 03:57 Urine Color Yellow (Yellow) 01/20/21 Unknown Urine Turbidity Clear (Clear) 01/20/21 Unknown Urine pH 6.0 (5.0-7.0) 01/20/21 Unknown Ur Specific [place] 1.022 (1.003-1.030) 01/20/21 Unknown Urine Protein >500 mg/dL (Negative) 01/20/21 Unknown Urine Glucose (UA) Neg mg/dL (Negative) 01/20/21 Unknown Urine Ketones Neg mg/dL (Negative) 01/20/21 Unknown Urine Blood Neg (Negative) 01/20/21 Unknown Urine Nitrite Neg (Negative) 01/20/21 Unknown Urine Bilirubin Neg (Negative) 01/20/21 Unknown Urine Urobilinogen < 2.0 mg/dL (<2.0) 01/20/21 Unknown Ur Leukocyte Esterase Neg (Negative) 01/20/21 Unknown Urine WBC (Auto) 1.0 /HPF (0.0-6.0) 01/20/21 Unknown Urine RBC (Auto) 4.0 /HPF (0.0-6.0) 01/20/21 Unknown U Epithel Cells (Auto) < 1.0 /HPF (0-13.0) 01/20/21 Unknown Coronavirus (PCR) Negative (Negative) 01/21/21 Unknown Microbiology: Microbiology 01/20/21 19:26 Peripheral/Venous Blood Culture - Preliminary NO GROWTH AFTER 4 DAYS 01/20/21 19:26 Peripheral/Venous Blood Culture - Preliminary NO GROWTH AFTER 4 DAYS 01/23/21 13:44 Tracheal Aspirate Sputum Culture - Preliminary Wilde/IV: Voiding Method Condom Catheter Active Medications - Current Medications Current Medications: Generic Name Dose Route Start Last Admin Trade Name Freq PRN Reason Stop Dose Admin Acetaminophen 650 mg 01/20/21 23:38 01/25/21 11:30 Acetaminophen 325 Mg Tab PO 650 mg Q4H PRN Administration Pain MILD(1-3)/Fever >100.5/GIBBONS Acetaminophen 650 mg 01/23/21 08:23 01/24/21 05:34 Acetaminophen 650 Mg Rect Supp ME 650 mg Q4H PRN Administration Pain, Mild (1-3) IF NPO Albuterol 2.5 mg 01/20/21 23:38 Albuterol 2.5 Mg/3 Ml Nebu IH Q4HRT PRN Shortness Of Breath Lipase/Protease/Amylase 1 each 01/24/21 08:04 Lipase 10,500/Protease 25,000/Amylase 43,750 (Units) Dr Anguiano FEEDTUBE PRN PRN For Clogged Feeding Tube Aspirin 325 mg 01/21/21 10:00 01/25/21 09:14 Aspirin 325 Mg Tab PO 325 mg QDAY NGUYEN Administration Atorvastatin Calcium 80 mg 01/21/21 10:00 01/25/21 09:14 Atorvastatin 40 Mg Tab PO 80 mg DAILY NGUYEN Administration Dextrose 0 ml 01/20/21 23:38 Dextrose 50% In Water (25gm) 50 Ml Syringe IV Q30MIN PRN Hypoglycemia Protocol Famotidine 20 mg 01/24/21 10:00 01/25/21 09:14 Famotidine 20 Mg/2 Ml Inj IV 20 mg BID NGUYEN Administration Fentanyl 50 mcg 01/23/21 16:00 01/24/21 10:57 Fentanyl 100 Mcg/2 Ml Inj IV 50 mcg Q2H PRN Administration Pain , Severe (7-10) Furosemide 40 mg 01/24/21 10:00 01/25/21 09:14 Furosemide 40 Mg/4 Ml Inj IV 40 mg QDAY NGUYEN Administration Heparin Sodium (Porcine) 5,000 unit 01/23/21 22:00 01/25/21 05:31 Heparin 5,000 Unit/1 Ml Vial SUB-Q 5,000 unit Q8HR NGUYEN Administration Hydralazine HCl 10 mg 01/20/21 23:46 Hydralazine 20 Mg/1 Ml Inj IV Q6H PRN htn Norepinephrine 4 mg in 250 mls @ 7.5 mls/hr 01/23/21 13:00 01/25/21 06:25 Levophed Drip 4 Mg/Ns 250 Ml IV 0 mcg/min TITR NGUYEN 0 mls/hr Titration Protocol 2 MCG/MIN Propofol 1,000 mg in 100 mls @ 3.468 mls/hr 01/24/21 11:00 01/25/21 10:35 Diprivan 10 Mg/Ml IV 20 mcg/kg/min TITR NGUYEN 13.872 mls/hr Titration Protocol 5 MCG/KG/MIN Insulin Human Lispro 0 unit 01/21/21 00:00 01/25/21 06:31 Insulin Lispro 100 Unit/Ml SUB-Q Not Given Q6HR [facility] Protocol Lorazepam 2 mg 01/23/21 12:22 01/24/21 04:20 Lorazepam 2 Mg/Ml Vial IV 2 mg Q4H PRN Administration Agitation Ondansetron HCl 4 mg 01/20/21 23:38 Ondansetron 4 Mg/2 Ml Inj IV Q8H PRN Nausea And Vomiting Simple Syrup 15 ml 01/24/21 08:04 Simple Syrup 15 Ml FEEDTUBE PRN PRN Hypoglycemia Simple Syrup 30 ml 01/24/21 08:04 Simple Syrup 15 Ml FEEDTUBE PRN PRN Hypoglycemia Sodium Bicarbonate 325 mg 01/24/21 08:04 Sodium Bicarbonate 325 Mg Tab FEEDTUBE PRN PRN For Clogged Feeding Tube Sodium Chloride 10 ml 01/21/21 10:00 01/25/21 09:14 Sodium Chloride 0.9% 10 Ml Flush Syringe IV 10 ml BID NGUYEN Administration Sodium Chloride 10 ml 01/20/21 23:38 Sodium Chloride 0.9% 10 Ml Flush Syringe IV PRN PRN LINE FLUSH Nutrition/Malnutrition Assess - Dietary Evaluation Nutrition/Malnutrition Findings: Nutrition Notes Start: 01/21/21 11:45 Freq: Status: Active Protocol: Document 01/24/21 07:54 (Rec: 01/24/21 08:03 [email or web address]) Nutrition Notes Need for Assessment generated from: MD Order Initial or Follow up Assessment Current Diagnosis Diabetes,Hypertension, Respiratory Failure Other Pertinent Diagnosis encephalopathy, pneu Current Diet NPO Labs/Tests Na 147 BUN 33 Cr 1.5 Pertinent Medications Levophed Height 5 ft 9 in Weight 115.6 kg Sanders Body Weight (kg) 72.72 BMI 37.6 Weight Status Morbidly Obese Subjective/Other Information MD order for TF. Pt now intubated. Burn Absent Trauma Absent Current % PO Negligible Minimum of two criteria No Fluid Accumulation Mild (non-severe) #1 Nutrition Diagnosis Inadequate oral intake Etiology ARF As Evidenced by Signs and Symptoms pt on vent and unable to consume PO Is patient on ventilator? Yes Is Patient Ambulatory and/or Out of Bed No REE-([facility]-confined to bed) 2328.408 Kcal/Kg value to use for calculation 16 Approximate Energy Requirements Using 1850 kcal/Kg Calculation Used for Recommendations Kcal/kg Additional Notes Protein: (>2.5g/kg IBW) >182g Fluid: 1 ml/kcal or per MD Nutrition Intervention Change Diet Order: Start TF Nutrition Support: Vital AF 1.2 at 65 ml/hr Flush 200 ml q4h for hypernatermia. Once resolved, flush 100 ml q4h. Kcal 1,872 Protein (gm) 117 Fluid (mL) 1,265 Goal #1 Meet at least 75% of kcal needs and 60% of protein needs via TF Anticipated Discharge Needs: Unable to determine at this time Follow-Up By: 01/28/21 Additional Comments FU for TF start and tolerance <JUAN FERRER - Last Filed: 01/25/21 15:05> History Interval history: I saw and evaluated the patient and discussed with Nurse Practitioner. . I agree with the findings and the plan of care as documented in the Nurse Practitioner's note. Hospitalist Physical - Constitutional Vitals: Temp Pulse Resp BP Pulse Ox 100.0 F H 83 18 105/68 98 01/25/21 11:37 01/25/21 14:00 01/25/21 14:00 01/25/21 14:00 01/25/21 14:00 HEART Score - HEART Score Troponin: Troponin T < 0.010 ng/mL (0.00-0.029) 01/20/21 19:26 Results - Labs CBC & Chem 7: 01/25/21 04:35 01/25/21 04:35 Labs: Laboratory Last Values WBC 6.7 K/mm3 (4.5-11.0) 01/25/21 04:35 RBC 3.87 M/mm3 (3.65-5.03) 01/25/21 04:35 Hgb 12.5 gm/dl (11.8-15.2) 01/25/21 04:35 Hct 37.5 % (35.5-45.6) D 01/25/21 04:35 MCV 97 fl (84-94) H 01/25/21 04:35 MCH 32 pg (28-32) 01/25/21 04:35 MCHC 33 % (32-34) 01/25/21 04:35 RDW 15.3 % (13.2-15.2) H 01/25/21 04:35 Plt Count 184 K/mm3 (140-440) 01/25/21 04:35 Lymph % (Auto) 5.2 % (13.4-35.0) L 01/20/21 19:26 [place] % (Auto) 10.4 % (0.0-7.3) H 01/20/21 19:26 Eos % (Auto) 0.5 % (0.0-4.3) 01/20/21 19:26 Baso % (Auto) 1.0 % (0.0-1.8) 01/20/21 19:26 Lymph # (Auto) 0.3 K/mm3 (1.2-5.4) L 01/20/21 19:26 [place] # (Auto) 0.7 K/mm3 (0.0-0.8) 01/20/21 19:26 Eos # (Auto) 0.0 K/mm3 (0.0-0.4) 01/20/21 19:26 Baso # (Auto) 0.1 K/mm3 (0.0-0.1) 01/20/21 19:26 Add Manual Diff Complete 01/21/21 05:45 Total Counted 100 01/21/21 05:45 Seg Neutrophils % Freight Conductor 01/21/21 05:45 Seg Neuts % (Manual) 96.0 % (40.0-70.0) H 01/21/21 05:45 Lymphocytes % (Manual) 3.0 % (13.4-35.0) L 01/21/21 05:45 Monocytes % (Manual) 1.0 % (0.0-7.3) 01/21/21 05:45 Nucleated RBC % Not Reportable 01/21/21 05:45 Seg Neutrophils # 5.3 K/mm3 (1.8-7.7) 01/20/21 19:26 Seg Neutrophils # Man 6.8 K/mm3 (1.8-7.7) 01/21/21 05:45 Band Neutrophils # 0.0 K/mm3 01/21/21 05:45 Lymphocytes # (Manual) 0.2 K/mm3 (1.2-5.4) L 01/21/21 05:45 Abs React Lymphs (Man) 0.0 K/mm3 01/21/21 05:45 Monocytes # (Manual) 0.1 K/mm3 (0.0-0.8) 01/21/21 05:45 Eosinophils # (Manual) 0.0 K/mm3 (0.0-0.4) 01/21/21 05:45 Basophils # (Manual) 0.0 K/mm3 (0.0-0.1) 01/21/21 05:45 Metamyelocytes # 0.0 K/mm3 01/21/21 05:45 Myelocytes # 0.0 K/mm3 01/21/21 05:45 Promyelocytes # 0.0 K/mm3 01/21/21 05:45 Blast Cells # 0.0 K/mm3 01/21/21 05:45 WBC Morphology Not Reportable 01/21/21 05:45 Hypersegmented Neuts Not Reportable 01/21/21 05:45 Hyposegmented Neuts Not Reportable 01/21/21 05:45 Hypogranular Neuts Not Reportable 01/21/21 05:45 Smudge Cells Not Reportable 01/21/21 05:45 Toxic Granulation Not Reportable 01/21/21 05:45 Toxic Vacuolation Not Reportable 01/21/21 05:45 Dohle Bodies Not Reportable 01/21/21 05:45 Pelger-Huet Anomaly Not Reportable 01/21/21 05:45 Masood Rods Not Reportable 01/21/21 05:45 Platelet Estimate Consistent w auto 01/21/21 05:45 Clumped Platelets Not Reportable 01/21/21 05:45 Plt Clumps, EDTA Not Reportable 01/21/21 05:45 Large Platelets Not Reportable 01/21/21 05:45 Giant Platelets Not Reportable 01/21/21 05:45 Platelet Satelliting Not Reportable 01/21/21 05:45 Plt Morphology Comment Not Reportable 01/21/21 05:45 RBC Morphology Normal 01/21/21 05:45 Dimorphic RBCs Not Reportable 01/21/21 05:45 Polychromasia Not Reportable 01/21/21 05:45 Hypochromasia Not Reportable 01/21/21 05:45 Poikilocytosis Not Reportable 01/21/21 05:45 Anisocytosis Not Reportable 01/21/21 05:45 Microcytosis Not Reportable 01/21/21 05:45 Macrocytosis Not Reportable 01/21/21 05:45 Spherocytes Not Reportable 01/21/21 05:45 Pappenheimer Bodies Not Reportable 01/21/21 05:45 Sickle Cells Not Reportable 01/21/21 05:45 Target Cells Not Reportable 01/21/21 05:45 Tear Drop Cells Not Reportable 01/21/21 05:45 Ovalocytes Not Reportable 01/21/21 05:45 Helmet Cells Not Reportable 01/21/21 05:45 Ramírez-[place] Bodies Not Reportable 01/21/21 05:45 Cuthbert Rings Not Reportable 01/21/21 05:45 Ab Cells Not Reportable 01/21/21 05:45 Bite Cells Not Reportable 01/21/21 05:45 Crenated Cell Not Reportable 01/21/21 05:45 Elliptocytes Not Reportable 01/21/21 05:45 Acanthocytes (Spur) Not Reportable 01/21/21 05:45 Rouleaux Not Reportable 01/21/21 05:45 Hemoglobin C Crystals Not Reportable 01/21/21 05:45 Schistocytes Not Reportable 01/21/21 05:45 Malaria parasites Not Reportable 01/21/21 05:45 Roney Bodies Not Reportable 01/21/21 05:45 Hem Pathologist Commnt No 01/21/21 05:45 PT 14.5 Sec. (12.2-14.9) 01/21/21 15:13 INR 1.14 (0.87-1.13) H 01/21/21 15:13 APTT 30.5 Sec. (24.2-36.6) 01/21/21 15:13 D-Dimer 229.34 ng/mlDDU (0-234) 01/20/21 23:20 ABG pH 7.515 (7.320-7.450) H 01/25/21 03:57 POC ABG pCO2 44.2 mmHg (32.0-48.0) 01/25/21 03:57 POC ABG pO2 70.5 mmHg (83-108) L 01/25/21 03:57 POC ABG HCO3 34.9 01/25/21 03:57 ABG O2 Saturation 95.3 (0-100) 01/25/21 03:57 POC ABG Base Excess 10.7 01/25/21 03:57 ABG Hemoglobin 13.2 (12.0-17.5) 01/25/21 03:57 ABG Oxyhemoglobin 94.6 (94-98) 01/25/21 03:57 ABG Methemoglobin 0 (0.0-1.5) 01/25/21 03:57 ABG Sodium 144.3 mmol/L (136.0-145.0) 01/25/21 03:57 ABG Potassium 3.7 mmol/L (3.40-4.50) 01/25/21 03:57 ABG Chloride 104.0 mmol/L (98-107) 01/25/21 03:57 ABG Glucose 150 mg/dL (65-95) H 01/25/21 03:57 Carboxyhemoglobin 0.7 (0.5-1.5) 01/25/21 03:57 FiO2 % 85.0 01/25/21 03:57 Sodium 147 mmol/L (137-145) H 01/25/21 04:35 Potassium 3.5 mmol/L (3.6-5.0) L D 01/25/21 04:35 Chloride 104.3 mmol/L (98-107) 01/25/21 04:35 Carbon Dioxide 37 mmol/L (22-30) H 01/25/21 04:35 Anion Gap 9 mmol/L 01/25/21 04:35 BUN 34 mg/dL (9-20) H 01/25/21 04:35 Creatinine 1.2 mg/dL (0.8-1.3) 01/25/21 04:35 Estimated GFR > 60 ml/min 01/25/21 04:35 BUN/Creatinine Ratio 28 % 01/25/21 04:35 Glucose 127 mg/dL (75-100) H 01/25/21 04:35 POC Glucose 143 mg/dL (70-105) H 01/25/21 12:39 Lactic Acid 1.50 mmol/L (0.7-2.0) 01/20/21 19:26 Calcium 8.1 mg/dL (8.4-10.2) L 01/25/21 04:35 Phosphorus 2.50 mg/dL (2.5-4.5) D 01/25/21 09:40 Magnesium 2.90 mg/dL (1.7-2.3) H 01/24/21 08:44 Ferritin 128.4 ng/mL (30.0-300.0) 01/20/21 23:20 Total Bilirubin 0.80 mg/dL (0.1-1.2) 01/23/21 17:54 AST 35 units/L (5-40) 01/23/21 17:54 ALT 31 units/L (7-56) 01/23/21 17:54 Alkaline Phosphatase 78 units/L (35-129) 01/23/21 17:54 Ammonia 58.0 umol/L (25-60) 01/22/21 14:19 Lactate Dehydrogenase 384 units/L (91-180) H 01/20/21 23:20 Troponin T < 0.010 ng/mL (0.00-0.029) 01/20/21 19:26 C-Reactive Protein 2.70 mg/dL (0.00-1.30) H 01/20/21 23:20 Total Protein 6.4 g/dL (6.3-8.2) 01/23/21 17:54 Albumin 3.2 g/dL (3.9-5) L 01/23/21 17:54 Albumin/Globulin Ratio 1.0 % 01/23/21 17:54 Triglycerides 49 mg/dL (2-149) 01/21/21 05:45 Cholesterol 210 mg/dL (50-199) H 01/21/21 05:45 LDL Cholesterol Direct 155 mg/dL (50-130) H 01/21/21 05:45 HDL Cholesterol 57 mg/dL (40-59) 01/21/21 05:45 Cholesterol/HDL Ratio 3.68 % 01/21/21 05:45 Procalcitonin 0.13 ng/mL (<0.15) 01/20/21 23:20 Arterial Blood Glucose 150 mg/dL (65-95) H 01/25/21 03:57 Arterial Blood Ionized Calcium 4.4 mg/dL (4.6-5.3) L 01/25/21 03:57 Urine Color Yellow (Yellow) 01/20/21 Unknown Urine Turbidity Clear (Clear) 01/20/21 Unknown Urine pH 6.0 (5.0-7.0) 01/20/21 Unknown Ur Specific [place] 1.022 (1.003-1.030) 01/20/21 Unknown Urine Protein >500 mg/dL (Negative) 01/20/21 Unknown Urine Glucose (UA) Neg mg/dL (Negative) 01/20/21 Unknown Urine Ketones Neg mg/dL (Negative) 01/20/21 Unknown Urine Blood Neg (Negative) 01/20/21 Unknown Urine Nitrite Neg (Negative) 01/20/21 Unknown Urine Bilirubin Neg (Negative) 01/20/21 Unknown Urine Urobilinogen < 2.0 mg/dL (<2.0) 01/20/21 Unknown Ur Leukocyte Esterase Neg (Negative) 01/20/21 Unknown Urine WBC (Auto) 1.0 /HPF (0.0-6.0) 01/20/21 Unknown Urine RBC (Auto) 4.0 /HPF (0.0-6.0) 01/20/21 Unknown U Epithel Cells (Auto) < 1.0 /HPF (0-13.0) 01/20/21 Unknown Coronavirus (PCR) Negative (Negative) 01/21/21 Unknown Microbiology: Microbiology 01/23/21 13:44 Tracheal Aspirate Sputum Culture - Preliminary 01/20/21 19:26 Peripheral/Venous Blood Culture - Preliminary NO GROWTH AFTER 4 DAYS 01/20/21 19:26 Peripheral/Venous Blood Culture - Preliminary NO GROWTH AFTER 4 DAYS Wilde/IV: Voiding Method Condom Catheter Active Medications - Current Medications Current Medications: Generic Name Dose Route Start Last Admin Trade Name Freq PRN Reason Stop Dose Admin Acetaminophen 650 mg 01/20/21 23:38 01/25/21 11:30 Acetaminophen 325 Mg Tab PO 650 mg Q4H PRN Administration Pain MILD(1-3)/Fever >100.5/GIBBONS Acetaminophen 650 mg 01/23/21 08:23 01/24/21 05:34 Acetaminophen 650 Mg Rect Supp ME 650 mg Q4H PRN Administration Pain, Mild (1-3) IF NPO Albuterol 2.5 mg 01/20/21 23:38 Albuterol 2.5 Mg/3 Ml Nebu IH Q4HRT PRN Shortness Of Breath Lipase/Protease/Amylase 1 each 01/24/21 08:04 Lipase 10,500/Protease 25,000/Amylase 43,750 (Units) Dr Anguiano FEEDTUBE PRN PRN For Clogged Feeding Tube Aspirin 325 mg 01/21/21 10:00 01/25/21 09:14 Aspirin 325 Mg Tab PO 325 mg QDAY NGUYEN Administration Atorvastatin Calcium 80 mg 01/21/21 10:00 01/25/21 09:14 Atorvastatin 40 Mg Tab PO 80 mg DAILY NGUYEN Administration Dextrose 0 ml 01/20/21 23:38 Dextrose 50% In Water (25gm) 50 Ml Syringe IV Q30MIN PRN Hypoglycemia Protocol Famotidine 20 mg 01/24/21 10:00 01/25/21 09:14 Famotidine 20 Mg/2 Ml Inj IV 20 mg BID NGUYEN Administration Fentanyl 50 mcg 01/23/21 16:00 01/24/21 10:57 Fentanyl 100 Mcg/2 Ml Inj IV 50 mcg Q2H PRN Administration Pain , Severe (7-10) Furosemide 40 mg 01/24/21 10:00 01/25/21 09:14 Furosemide 40 Mg/4 Ml Inj IV 40 mg QDAY NGUYEN Administration Heparin Sodium (Porcine) 5,000 unit 01/23/21 22:00 01/25/21 14:03 Heparin 5,000 Unit/1 Ml Vial SUB-Q 5,000 unit Q8HR NGUYEN Administration Hydralazine HCl 10 mg 01/20/21 23:46 Hydralazine 20 Mg/1 Ml Inj IV Q6H PRN htn Norepinephrine 4 mg in 250 mls @ 7.5 mls/hr 01/23/21 13:00 01/25/21 06:25 Levophed Drip 4 Mg/Ns 250 Ml IV 0 mcg/min TITR NGUYEN 0 mls/hr Titration Protocol 2 MCG/MIN Propofol 1,000 mg in 100 mls @ 3.468 mls/hr 01/24/21 11:00 01/25/21 14:02 Diprivan 10 Mg/Ml IV 20 mcg/kg/min TITR NGUYEN 13.872 mls/hr Administration Protocol 5 MCG/KG/MIN Insulin Human Lispro 0 unit 01/21/21 00:00 01/25/21 13:00 Insulin Lispro 100 Unit/Ml SUB-Q Not Given Q6HR NGUYEN Protocol Lorazepam 2 mg 01/23/21 12:22 01/24/21 04:20 Lorazepam 2 Mg/Ml Vial IV 2 mg Q4H PRN Administration Agitation Ondansetron HCl 4 mg 01/20/21 23:38 Ondansetron 4 Mg/2 Ml Inj IV Q8H PRN Nausea And Vomiting Simple Syrup 15 ml 01/24/21 08:04 Simple Syrup 15 Ml FEEDTUBE PRN PRN Hypoglycemia Simple Syrup 30 ml 01/24/21 08:04 Simple Syrup 15 Ml FEEDTUBE PRN PRN Hypoglycemia Sodium Bicarbonate 325 mg 01/24/21 08:04 Sodium Bicarbonate 325 Mg Tab FEEDTUBE PRN PRN For Clogged Feeding Tube Sodium Chloride 10 ml 01/21/21 10:00 01/25/21 09:14 Sodium Chloride 0.9% 10 Ml Flush Syringe IV 10 ml BID NGUYEN Administration Sodium Chloride 10 ml 01/20/21 23:38 Sodium Chloride 0.9% 10 Ml Flush Syringe IV PRN PRN LINE FLUSH Nutrition/Malnutrition Assess - Dietary Evaluation Nutrition/Malnutrition Findings: Nutrition Notes Start: 01/21/21 11:45 Freq: Status: Active Protocol: Document 01/24/21 07:54 MK (Rec: 01/24/21 08:03 LORI [id number]) Nutrition Notes Need for Assessment generated from: MD Order Initial or Follow up Assessment Current Diagnosis Diabetes,Hypertension, Respiratory Failure Other Pertinent Diagnosis encephalopathy, pneu Current Diet NPO Labs/Tests Na 147 BUN 33 Cr 1.5 Pertinent Medications Levophed Height 5 ft 9 in Weight 115.6 kg Sanders Body Weight (kg) 72.72 BMI 37.6 Weight Status Morbidly Obese Subjective/Other Information MD order for TF. Pt now intubated. Burn Absent Trauma Absent Current % PO Negligible Minimum of two criteria No Fluid Accumulation Mild (non-severe) #1 Nutrition Diagnosis Inadequate oral intake Etiology ARF As Evidenced by Signs and Symptoms pt on vent and unable to consume PO Is patient on ventilator? Yes Is Patient Ambulatory and/or Out of Bed No REE-([facility]-confined to bed) [phone] Kcal/Kg value to use for calculation 16 Approximate Energy Requirements Using 1850 kcal/Kg Calculation Used for Recommendations Kcal/kg Additional Notes Protein: (>2.5g/kg IBW) >182g Fluid: 1 ml/kcal or per MD Nutrition Intervention Change Diet Order: Start TF Nutrition Support: Vital AF 1.2 at 65 ml/hr Flush 200 ml q4h for hypernatermia. Once resolved, flush 100 ml q4h. Kcal 1,872 Protein (gm) 117 Fluid (mL) 1,265 Goal #1 Meet at least 75% of kcal needs and 60% of protein needs via TF Anticipated Discharge Needs: Unable to determine at this time Follow-Up By: 01/28/21 Additional Comments FU for TF start and tolerance
--- NOTE | 2021-01-25 13:01 | Progress Note ---
Assessment and Plan Echo reviewed - mild LVH, EF 50-55%, mod pulm HTN w/RVSP 53 mmHg, mod RA enlargement, mild RV enlargement with TR, negative Bubble study. Remains in AF/Flutter on tele, rate is well controlled. Continue PRN repletion of electrolytes. Resume Eliquis when ok from a Neuro standpoint. Nothing further to add from a Cardiology perspective at this time. Will see peripherally over the weekend. Please call if any questions/concerns regarding cardiac mgmt ([phone]). Pt seen in conjunction with Dr. Pizano, who agrees with the assessment and plan of care. - Patient Problems (1) Acute CVA (cerebrovascular accident) Current Visit: Yes Status: Suspected (2) Acute respiratory failure Current Visit: Yes Status: Acute (3) Pneumonia Current Visit: Yes Status: Acute (4) Atrial fibrillation Current Visit: Yes Status: Acute Qualifiers: Atrial fibrillation type: unspecified Qualified Code(s): I48.91 - Unspecified atrial fibrillation (5) Seizure Current Visit: Yes Status: Chronic (6) HTN (hypertension) Current Visit: Yes Status: Chronic Qualifiers: Hypertension type: essential hypertension Qualified Code(s): I10 - Essential (primary) hypertension (7) DM2 (diabetes mellitus, type 2) Current Visit: Yes Status: Chronic Subjective Date of service: 01/25/21 Principal diagnosis: CVA Interval history: Remains intubated/sedated. Off pressors. Tele reviewed - AF 70-90s. Objective Last Vital Signs Temp 100.0 F H 01/25/21 11:37 Pulse 77 01/25/21 15:00 Resp 16 01/25/21 15:00 BP 101/57 01/25/21 15:00 Pulse Ox 98 01/25/21 15:00 - Physical Examination General: Other (intubated/sedated) HEENT: Positive: Normocephaly Neck: Positive: neck supple, trachea midline Cardiac: Positive: irregularly irregular, S1/S2 Lungs: Positive: Ventilated Respirations Neuro: Positive: Other (intubated/sedated) Abdomen: Positive: Soft Skin: Negative: Rash Musculoskeletal: No Fluid Collection Extremities: Present: lower extr. pulses. Absent: edema - Labs and Meds CBC 01/25/21 Range/Units 04:35 WBC 6.7 (4.5-11.0) K/mm3 RBC 3.87 (3.65-5.03) M/mm3 Hgb 12.5 (11.8-15.2) gm/dl Hct 37.5 D (35.5-45.6) % Plt Count 184 (140-440) K/mm3 Comprehensive Metabolic Panel 01/25/21 Range/Units 04:35 Sodium 147 H (137-145) mmol/L Potassium 3.5 L D (3.6-5.0) mmol/L Chloride 104.3 (98-107) mmol/L Carbon Dioxide 37 H (22-30) mmol/L BUN 34 H (9-20) mg/dL Creatinine 1.2 (0.8-1.3) mg/dL Glucose 127 H (75-100) mg/dL Calcium 8.1 L (8.4-10.2) mg/dL - Imaging and Cardiology EKG: report reviewed, image reviewed Echo: report reviewed (01/23/2021 - mild LVH, EF 50-55%, mod pulm HTN w/RVSP 53 mmHg, mod RA enlargement, mild RV enlargement with TR) - Telemetry EKG Rhythm: Atrial Fibrillation - EKG Supraventricular dysrhythmia: atrial fibrillation Repolarization changes or abnormalities: nonspecific abnormality, ST segment, and/or T wave - Allied health notes Allied health notes reviewed: nursing
[2021-01-26] MEDS: INSULIN LISPRO 100 UNIT/ML SUB-Q SCH ×4 (00:05→18:14)
[2021-01-26] MEDS: ACETAMINOPHEN 325 MG TAB PO PRN ×4 (03:07→23:25)
[2021-01-26 05:35] LABS: BUN/Creatinine Ratio 27; Blood Urea Nitrogen 35 mg/dL (9-20); Calcium 8.3 mg/dL (8.4-10.2); Hemolysis Index 9
[2021-01-26] MEDS: HEPARIN 5,000 UNIT/1 ML VIAL SUB-Q SCH ×3 (06:00→21:03)
[2021-01-26] MEDS: FUROSEMIDE 40 MG/4 ML INJ IV SCH (09:15)
[2021-01-26] MEDS: ASPIRIN 325 MG TAB PO SCH (09:15)
[2021-01-26] MEDS: FAMOTIDINE 20 MG/2 ML INJ IV SCH ×2 (09:15→21:03)
--- NOTE | 2021-01-26 10:22 | Progress Note ---
Assessment and Plan Assessment and Plan VTE prophylaxis?: Chemical Plan of care discussed with patient/family: Yes #Encephalopathy -65 ys old male presented with diffuse weakness and fever he is lethargic open eyes only to verbal command with difficulty sustaining eyes open -findings from hx and exam is suggestive of under lying ?infection ,toximetabolic and or drug effect -he is with significant asterexsis in both upper extremties with the possibility of hepatic and or renal insuficency can not be excluded -BUN/CR#wnl -Ammonia is# 58 on admission -Ct brain is suggestive right parietal hypodensity -CTA brain and neck are unremarkable -MRI is pending unable to do due to intubation # respiratory failure -required intubation #Left side weakness and slurred speech -CVA can not be excluded -Ct brain showed rigth sided hypodensity with left side weakness -NIH#9 -Hx of AF on Eliquis on Hold since 01/20 +++ will repeat CT brain if no hemorrhage will restart AC po -PT/ST evaluate -MRI brain is needed r/o CVA when possible - CTA Brain and neck are unremarkable -ASA 325 mg daily -Lipitor 40 mg daily -Lipid profil--LDL#155 -Echo cardiogram showed Ef#50-55% -equipment monitor phototypesetting # Pneumonia -Admit the patient to the medical telemetry. Put the patient on pneumonia pathway. - Oxygen via nasal cannula 3 L/min. DuoNeb by nebulizer every 4 hours as needed. Rocephin 2 g IV daily and Zithromax 500 mg IV daily we will do the blood culture and sputum culture. # Hypoxia -Put the patient on pneumonia pathway. - Oxygen via nasal cannula 3 L/min. -DuoNeb by nebulizer every 4 hours as needed. -ABG # Diabetes -We will put the patient on Humalog sliding scale Accu-Chek every 6 hours with moderate dose coverage. -A1C pending # A-fib -Heparin 5000 units subcu every 8 hours. -We do echocardiogram. -Hold Eliquis for now -ASA 325 mg daily -SQ heparine # Hypertensive urgency -Labetalol 10 mg IV q. 5 minutes as needed. Hydralazine 10 mg IV every 6 hours as needed. Metoprolol 25 mg p.o. daily. We will monitor the blood pressure closely -Allow for permissive HTN,220/120 for first 24 hours # DVT prophylaxis -Heparin 5000 units subcu every 8 hours for DVT prophylaxis. - Pepcid 20 mg p.o. twice daily for GI prophylaxis. -Patient is a full code PLAN 1- MRI brain when possible 2- CTA brain and neck are unremarkable 3- NPO ,IV fluid--Na#147 4-Treat underlying infection 5- Eliquis on hold since 01/20 for now --SQ heparine and ASA 325 mg daily 6- Lipitor up to 80 mg 9- Neuro check Q8 hours 10- Will repeat CT brain today since MRI can not be done ---if no bleed or large CVA can restart back on AC po will follow Subjective Date of service: 01/26/21 Principal diagnosis: CVA Interval history: pt. had respiratory distress required intubation transferred to unit no MRI difficult to do CTA done is unremarkable in brain or neck Echo showed EF 50-55% he is intubated sedated move all limbs slightly currently on propofol 20 mc. Objective - Vital Sign Vital Signs - 12hr 01/25/21 01/25/21 01/25/21 22:21 22:30 22:41 Temperature Pulse Rate 75 70 70 Pulse Rate [ From Monitor] Respiratory 15 16 16 Rate Blood Pressure 103/65 101/63 101/63 O2 Sat by Pulse 97 98 97 Oximetry 01/25/21 01/25/21 01/25/21 22:51 23:00 23:11 Temperature Pulse Rate 68 72 74 Pulse Rate [ From Monitor] Respiratory 16 16 15 Rate Blood Pressure 98/65 106/65 106/65 O2 Sat by Pulse 97 97 96 Oximetry 01/25/21 01/25/21 01/25/21 23:21 23:26 23:30 Temperature 101.6 F H Pulse Rate 79 80 Pulse Rate [ From Monitor] Respiratory 16 16 Rate Blood Pressure 116/77 104/66 O2 Sat by Pulse 97 97 Oximetry 01/25/21 01/25/21 01/26/21 23:41 23:51 00:00 Temperature Pulse Rate 73 82 80 Pulse Rate [ 78 From Monitor] Respiratory 16 16 16 Rate Blood Pressure 104/66 120/76 115/72 O2 Sat by Pulse 97 97 97 Oximetry 01/26/21 01/26/21 01/26/21 00:10 00:11 00:21 Temperature Pulse Rate 72 86 78 Pulse Rate [ From Monitor] Respiratory 16 16 Rate Blood Pressure 124/73 115/72 111/72 O2 Sat by Pulse 94 97 98 Oximetry 01/26/21 01/26/21 01/26/21 00:30 00:41 00:51 Temperature Pulse Rate 74 80 78 Pulse Rate [ From Monitor] Respiratory 16 17 13 Rate Blood Pressure 114/70 114/70 102/71 O2 Sat by Pulse 97 97 97 Oximetry 01/26/21 01/26/21 01/26/21 01:00 01:11 01:21 Temperature Pulse Rate 80 76 67 Pulse Rate [ From Monitor] Respiratory 15 16 16 Rate Blood Pressure 112/72 112/72 113/67 O2 Sat by Pulse 98 98 97 Oximetry 01/26/21 01/26/21 01/26/21 01:30 01:41 01:51 Temperature Pulse Rate 83 77 76 Pulse Rate [ From Monitor] Respiratory 14 16 16 Rate Blood Pressure 118/77 118/77 103/73 O2 Sat by Pulse 97 97 98 Oximetry 01/26/21 01/26/21 01/26/21 02:00 02:11 02:21 Temperature Pulse Rate 80 71 82 Pulse Rate [ From Monitor] Respiratory 16 16 15 Rate Blood Pressure 119/74 119/74 117/74 O2 Sat by Pulse 99 99 98 Oximetry 01/26/21 01/26/21 01/26/21 02:30 02:41 02:51 Temperature Pulse Rate 80 70 85 Pulse Rate [ From Monitor] Respiratory 16 17 12 Rate Blood Pressure 110/74 119/74 103/69 O2 Sat by Pulse 98 98 98 Oximetry 01/26/21 01/26/21 01/26/21 03:00 03:11 03:17 Temperature 102.4 F H Pulse Rate 83 90 Pulse Rate [ From Monitor] Respiratory 16 14 Rate Blood Pressure 110/70 110/70 O2 Sat by Pulse 98 97 Oximetry 01/26/21 01/26/21 01/26/21 03:21 03:30 03:41 Temperature Pulse Rate 83 80 82 Pulse Rate [ From Monitor] Respiratory 16 16 16 Rate Blood Pressure 120/71 113/69 113/69 O2 Sat by Pulse 98 99 98 Oximetry 01/26/21 01/26/21 01/26/21 03:51 04:00 04:10 Temperature Pulse Rate 76 77 80 Pulse Rate [ 78 From Monitor] Respiratory 16 16 Rate Blood Pressure 104/70 97/68 114/69 O2 Sat by Pulse 98 98 93 Oximetry 01/26/21 01/26/21 01/26/21 04:11 04:21 04:30 Temperature Pulse Rate 78 77 80 Pulse Rate [ From Monitor] Respiratory 14 16 16 Rate Blood Pressure 97/68 79/38 124/73 O2 Sat by Pulse 96 85 92 Oximetry 01/26/21 01/26/21 01/26/21 04:41 04:51 05:00 Temperature Pulse Rate 76 74 75 Pulse Rate [ From Monitor] Respiratory 16 16 16 Rate Blood Pressure 124/73 124/73 114/69 O2 Sat by Pulse 92 93 94 Oximetry 01/26/21 01/26/21 01/26/21 05:11 05:21 05:30 Temperature Pulse Rate 69 75 78 Pulse Rate [ From Monitor] Respiratory 15 16 16 Rate Blood Pressure 114/69 114/69 124/73 O2 Sat by Pulse 94 95 94 Oximetry 01/26/21 01/26/21 01/26/21 05:41 05:51 06:00 Temperature Pulse Rate 82 79 74 Pulse Rate [ From Monitor] Respiratory 15 15 16 Rate Blood Pressure 124/73 124/73 112/68 O2 Sat by Pulse 95 95 95 Oximetry 01/26/21 01/26/21 01/26/21 06:11 06:21 06:30 Temperature Pulse Rate 76 70 73 Pulse Rate [ From Monitor] Respiratory 16 16 16 Rate Blood Pressure 112/68 112/68 121/76 O2 Sat by Pulse 96 96 97 Oximetry 01/26/21 01/26/21 01/26/21 06:41 06:51 07:00 Temperature Pulse Rate 78 82 72 Pulse Rate [ From Monitor] Respiratory 16 15 16 Rate Blood Pressure 112/68 112/68 112/66 O2 Sat by Pulse 97 95 95 Oximetry 01/26/21 01/26/21 01/26/21 07:09 07:11 07:21 Temperature Pulse Rate 80 66 74 Pulse Rate [ From Monitor] Respiratory 15 14 Rate Blood Pressure 112/66 112/66 112/66 O2 Sat by Pulse 96 96 93 Oximetry 01/26/21 01/26/21 01/26/21 07:30 07:41 07:51 Temperature Pulse Rate 80 78 76 Pulse Rate [ From Monitor] Respiratory 16 16 16 Rate Blood Pressure 120/75 120/75 120/75 O2 Sat by Pulse 95 95 95 Oximetry 01/26/21 01/26/2121 08:00 08:11 08:21 Temperature 99.4 F Pulse Rate 75 74 81 Pulse Rate [ 73 From Monitor] Respiratory 16 16 22 Rate Blood Pressure 118/76 118/76 118/76 O2 Sat by Pulse 94 96 95 Oximetry - General Apperance Constitutional: comfortable - EENT EENT: PERRL, mucous membranes moist - Respiratory Respiratory: lungs clear, rhonchi - Cardiovascular Cardiovascular: other (AF) Extremities: no peripheral edema bilat - Gastrointestinal Gastrointestinal: normoactive bowel sounds - Integumentary Integumentary: normal - Neurologic Cranial nerve examination: PERRL, EOMI Speech examination: intact Detailed motor examination: grossly full strength in - Laboratory Findings CBC and BMP: 01/25/21 04:35 01/26/21 04:30 Abnormal Lab Findings: Abnormal Labs 01/20/21 01/20/21 01/20/21 19:26 19:26 23:20 Hgb 15.3 H Hct 45.8 H MCV 98 H MCH 33 H RDW Lymph % (Auto) 5.2 L [place] % (Auto) 10.4 H Lymph # (Auto) 0.3 L Seg Neutrophils % 82.9 H Seg Neuts % (Manual) Lymphocytes % (Manual) Lymphocytes # (Manual) INR ABG pH POC ABG pCO2 POC ABG pO2 ABG Oxyhemoglobin ABG Potassium ABG Glucose Sodium Potassium Chloride 97.8 L Carbon Dioxide 33 H BUN Creatinine Glucose 127 H POC Glucose Calcium Phosphorus Magnesium Lactate Dehydrogenase 384 H C-Reactive Protein 2.70 H Albumin Cholesterol LDL Cholesterol Direct Arterial Blood Glucose Arterial Blood Ionized Calcium 01/21/21 01/21/21 01/21/21 00:17 05:45 05:45 Hgb 15.9 H Hct 47.9 H MCV 98 H MCH 33 H RDW 15.3 H Lymph % (Auto) [place] % (Auto) Lymph # (Auto) Seg Neutrophils % Seg Neuts % (Manual) 96.0 H Lymphocytes % (Manual) 3.0 L Lymphocytes # (Manual) 0.2 L INR ABG pH POC ABG pCO2 POC ABG pO2 ABG Oxyhemoglobin ABG Potassium ABG Glucose Sodium Potassium Chloride 96.2 L Carbon Dioxide 35 H BUN Creatinine 0.7 L Glucose 142 H POC Glucose 119 H Calcium Phosphorus Magnesium Lactate Dehydrogenase C-Reactive Protein Albumin Cholesterol 210 H LDL Cholesterol Direct 155 H Arterial Blood Glucose Arterial Blood Ionized Calcium 01/21/21 01/21/21 01/21/21 05:56 09:33 15:13 Hgb Hct 45.8 H MCV 98 H MCH RDW Lymph % (Auto) [place] % (Auto) Lymph # (Auto) Seg Neutrophils % Seg Neuts % (Manual) Lymphocytes % (Manual) Lymphocytes # (Manual) INR ABG pH POC ABG pCO2 POC ABG pO2 ABG Oxyhemoglobin ABG Potassium ABG Glucose Sodium Potassium Chloride Carbon Dioxide BUN Creatinine Glucose POC Glucose 147 H 153 H Calcium Phosphorus Magnesium Lactate Dehydrogenase C-Reactive Protein Albumin Cholesterol LDL Cholesterol Direct Arterial Blood Glucose Arterial Blood Ionized Calcium 01/21/21 01/21/21 01/22/21 15:13 16:33 01:53 Hgb Hct MCV MCH RDW Lymph % (Auto) [place] % (Auto) Lymph # (Auto) Seg Neutrophils % Seg Neuts % (Manual) Lymphocytes % (Manual) Lymphocytes # (Manual) INR 1.14 H ABG pH POC ABG pCO2 POC ABG pO2 ABG Oxyhemoglobin ABG Potassium ABG Glucose Sodium Potassium Chloride Carbon Dioxide BUN Creatinine Glucose POC Glucose 126 H 112 H Calcium Phosphorus Magnesium Lactate Dehydrogenase C-Reactive Protein Albumin Cholesterol LDL Cholesterol Direct Arterial Blood Glucose Arterial Blood Ionized Calcium 01/22/21 01/22/21 01/22/21 06:06 12:05 16:51 Hgb Hct MCV MCH RDW Lymph % (Auto) [place] % (Auto) Lymph # (Auto) Seg Neutrophils % Seg Neuts % (Manual) Lymphocytes % (Manual) Lymphocytes # (Manual) INR ABG pH POC ABG pCO2 POC ABG pO2 ABG Oxyhemoglobin ABG Potassium ABG Glucose Sodium Potassium Chloride Carbon Dioxide BUN Creatinine Glucose POC Glucose 107 H 121 H 164 H Calcium Phosphorus Magnesium Lactate Dehydrogenase C-Reactive Protein Albumin Cholesterol LDL Cholesterol Direct Arterial Blood Glucose Arterial Blood Ionized Calcium 01/22/21 01/23/21 01/23/21 23:10 05:39 06:08 Hgb Hct MCV 101 H MCH 33 H RDW Lymph % (Auto) [place] % (Auto) Lymph # (Auto) Seg Neutrophils % Seg Neuts % (Manual) Lymphocytes % (Manual) Lymphocytes # (Manual) INR ABG pH POC ABG pCO2 POC ABG pO2 ABG Oxyhemoglobin ABG Potassium ABG Glucose Sodium Potassium Chloride Carbon Dioxide BUN Creatinine Glucose POC Glucose 143 H 150 H Calcium Phosphorus Magnesium Lactate Dehydrogenase C-Reactive Protein Albumin Cholesterol LDL Cholesterol Direct Arterial Blood Glucose Arterial Blood Ionized Calcium 01/23/21 01/23/21 01/23/21 11:27 13:55 17:54 Hgb Hct MCV MCH RDW Lymph % (Auto) [place] % (Auto) Lymph # (Auto) Seg Neutrophils % Seg Neuts % (Manual) Lymphocytes % (Manual) Lymphocytes # (Manual) INR ABG pH 7.249 L POC ABG pCO2 83.0 H POC ABG pO2 82.8 L ABG Oxyhemoglobin ABG Potassium 4.8 H ABG Glucose 236 H Sodium Potassium Chloride Carbon Dioxide 33 H BUN 32 H Creatinine 1.6 H D Glucose 146 H POC Glucose 218 H Calcium 8.3 L Phosphorus Magnesium 3.00 H Lactate Dehydrogenase C-Reactive Protein Albumin 3.2 L Cholesterol LDL Cholesterol Direct Arterial Blood Glucose 236 H Arterial Blood Ionized Calcium 4.5 L 01/23/21 01/24/21 01/24/21 17:54 03:11 04:56 Hgb Hct MCV 100 H MCH RDW 15.4 H Lymph % (Auto) [place] % (Auto) Lymph # (Auto) Seg Neutrophils % Seg Neuts % (Manual) Lymphocytes % (Manual) Lymphocytes # (Manual) INR ABG pH POC ABG pCO2 POC ABG pO2 ABG Oxyhemoglobin ABG Potassium ABG Glucose Sodium Potassium Chloride Carbon Dioxide BUN Creatinine Glucose POC Glucose 131 H Calcium Phosphorus 2.00 L Magnesium Lactate Dehydrogenase C-Reactive Protein Albumin Cholesterol LDL Cholesterol Direct Arterial Blood Glucose Arterial Blood Ionized Calcium 01/24/21 01/24/21 01/24/21 04:56 05:00 05:47 Hgb Hct MCV MCH RDW Lymph % (Auto) [place] % (Auto) Lymph # (Auto) Seg Neutrophils % Seg Neuts % (Manual) Lymphocytes % (Manual) Lymphocytes # (Manual) INR ABG pH 7.473 H POC ABG pCO2 POC ABG pO2 53.9 L ABG Oxyhemoglobin 90.0 L ABG Potassium ABG Glucose 127 H Sodium 147 H D Potassium Chloride Carbon Dioxide 36 H BUN 33 H Creatinine 1.5 H Glucose 128 H POC Glucose 141 H Calcium 8.3 L Phosphorus Magnesium Lactate Dehydrogenase C-Reactive Protein Albumin Cholesterol LDL Cholesterol Direct Arterial Blood Glucose 127 H Arterial Blood Ionized Calcium 4.5 L 01/24/21 01/24/21 01/25/21 08:44 11:27 03:57 Hgb Hct MCV MCH RDW Lymph % (Auto) [place] % (Auto) Lymph # (Auto) Seg Neutrophils % Seg Neuts % (Manual) Lymphocytes % (Manual) Lymphocytes # (Manual) INR ABG pH 7.515 H POC ABG pCO2 POC ABG pO2 70.5 L ABG Oxyhemoglobin ABG Potassium ABG Glucose 150 H Sodium Potassium Chloride Carbon Dioxide BUN Creatinine Glucose POC Glucose 127 H Calcium Phosphorus 1.40 L D Magnesium 2.90 H Lactate Dehydrogenase C-Reactive Protein Albumin Cholesterol LDL Cholesterol Direct Arterial Blood Glucose 150 H Arterial Blood Ionized Calcium 4.4 L 01/25/21 01/25/21 01/25/21 04:35 04:35 05:07 Hgb Hct MCV 97 H MCH RDW 15.3 H Lymph % (Auto) [place] % (Auto) Lymph # (Auto) Seg Neutrophils % Seg Neuts % (Manual) Lymphocytes % (Manual) Lymphocytes # (Manual) INR ABG pH POC ABG pCO2 POC ABG pO2 ABG Oxyhemoglobin ABG Potassium ABG Glucose Sodium 147 H Potassium 3.5 L D Chloride Carbon Dioxide 37 H BUN 34 H Creatinine Glucose 127 H POC Glucose 117 H Calcium 8.1 L Phosphorus Magnesium Lactate Dehydrogenase C-Reactive Protein Albumin Cholesterol LDL Cholesterol Direct Arterial Blood Glucose Arterial Blood Ionized Calcium 01/25/21 01/25/21 01/25/21 11:15 12:39 17:37 Hgb Hct MCV MCH RDW Lymph % (Auto) [place] % (Auto) Lymph # (Auto) Seg Neutrophils % Seg Neuts % (Manual) Lymphocytes % (Manual) Lymphocytes # (Manual) INR ABG pH POC ABG pCO2 POC ABG pO2 ABG Oxyhemoglobin ABG Potassium ABG Glucose Sodium Potassium Chloride Carbon Dioxide BUN Creatinine Glucose POC Glucose 147 H 143 H 142 H Calcium Phosphorus Magnesium Lactate Dehydrogenase C-Reactive Protein Albumin Cholesterol LDL Cholesterol Direct Arterial Blood Glucose Arterial Blood Ionized Calcium 01/25/21 01/26/21 01/26/21 23:08 03:44 04:30 Hgb Hct MCV MCH RDW Lymph % (Auto) [place] % (Auto) Lymph # (Auto) Seg Neutrophils % Seg Neuts % (Manual) Lymphocytes % (Manual) Lymphocytes # (Manual) INR ABG pH POC ABG pCO2 49.5 H POC ABG pO2 ABG Oxyhemoglobin ABG Potassium ABG Glucose 153 H Sodium 149 H Potassium Chloride Carbon Dioxide 39 H BUN 35 H Creatinine Glucose 141 H POC Glucose 139 H Calcium 8.3 L Phosphorus Magnesium Lactate Dehydrogenase C-Reactive Protein Albumin Cholesterol LDL Cholesterol Direct Arterial Blood Glucose 153 H Arterial Blood Ionized Calcium 4.5 L 01/26/21 05:31 Hgb Hct MCV MCH RDW Lymph % (Auto) [place] % (Auto) Lymph # (Auto) Seg Neutrophils % Seg Neuts % (Manual) Lymphocytes % (Manual) Lymphocytes # (Manual) INR ABG pH POC ABG pCO2 POC ABG pO2 ABG Oxyhemoglobin ABG Potassium ABG Glucose Sodium Potassium Chloride Carbon Dioxide BUN Creatinine Glucose POC Glucose 143 H Calcium Phosphorus Magnesium Lactate Dehydrogenase C-Reactive Protein Albumin Cholesterol LDL Cholesterol Direct Arterial Blood Glucose Arterial Blood Ionized Calcium
--- NOTE | 2021-01-26 10:35 | Progress Note ---
<ANJELICAMARÍA ELENA H. - Last Filed: 01/26/21 14:04> Assessment and Plan Assessment and plan: This is a 65-year-old male with atrial fibrillation on Eliquis, hypertension, and diabetes who is admitted with suspected pneumonia, acute hypoxic respiratory failure, COVID-19 PUI, rule out CVA and with hypertensive urgency Acute hypoxic respiratory failure Acute CVA (? Right parietal lobe infarct) Shock/hypotension Seizure Right middle and lower lobe pneumonia Acute metabolic encephalopathy Hypertensive urgency Type 2 diabetes Atrial fibrillation Hypernatremia Hyperchloremia -[facility], cardiology, neurology consulted, appreciate recommendations -01/20 CT head shows a well-defined area of decreased attenuation in the right parietal lobe, limited imagery secondary to artifact. MRI brain recommended for further work-up -01/20 CT chest shows possible mild inflammatory process in the right middle and right lower lobe -01/20 MRI brain pending -01/23 CT head shows no acute focal parenchymal lesion in the brain, no change to right middle frontal gyrus chronic ischemia -01/23 CXR shows right infrahilar opacity consistent with large areas of atelectasis of the right middle or lower lobe. 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 -01/23 EEG pending -01/26 CT head pending -Intubated 01/23 -VAP bundle, wean mechanical ventilation as tolerated -IV antibiotics -Aspirin, Lipitor -Sedated with propofol -s/p vasopressor support with Levophed -Hold antihypertensive regimen and setting of needing vasopressor support, resume as tolerated -Neurochecks per protocol -Accu-Cheks every 6, SSI -Seizure precautions -Tube feedings -Trend BMP, CBC DVT/GI prophylaxis: Heparin subcu, PPI Disposition: ICU The high probability of a clinically significant, sudden or life threatening deterioration of the [Respiratory, neuro, metabolic, infectious,] system(s) required my full and direct attention, intervention and personal management. The aggregate critical care time was [35] minutes. This time is in addition to time spent performing reported procedures but includes the following: [x] Data Review and interpretation [x] Patient assessment and monitoring of vital signs [x] Documentation [x] Medication orders and management History Interval history: This is a 65-year-old male with atrial fibrillation on Eliquis, hypertension, and diabetes who presents to the emergency on 01/20 with complaints of progressive generalized weakness, gait unsteadiness, cough and fever. Upon EMS arrival patient was febrile with a temperature of 102 and hypoxic with SPO2 in the 70s on room air. Work-up in the emergency department included a CT scan of his chest which showed possible mild inflammatory process in his right middle and lower lobe, CT head was admitted secondary to artifact but noted a low- density area in the right parietal lobe. Patient was admitted to the hospitalist service with suspected pneumonia, acute hypoxic respiratory failure, COVID-19 PUI, rule out CVA and with hypertensive urgency. Neurology was consulted. 01/22/2021; neuro work-up is in progress, follow PT OT eval. Neurology consult, continue antibiotics and supportive care 01/23/2021; patient went into acute respiratory failure requiring intubation and ventilatory support. Patient is transferred to ICU, pulmonary critical c onsulted, hypotensive started on Levophed. Pulmonary critical, cardiology and neurology following the patient. updated by Dr. Cho 01/24: Patient is awaiting further neuro imaging and is restrained the time my examination. Patient is not sedated and on assist control tidal volume 500, rate of 24, PEEP of 8 on FiO2 70%. Patient is severely agitated and is started on propofol drip per [facility]. He has hypophosphatemia today which was repleted. We will repeat BMP and phosphate level in the a.m. 01/25: Patient has hypokalemia today which was repleted today. Cr decreased to 1.2 from 1.5. Hypophosphatemia is resolved. Awaiting MRI brain. Sedated with propofol and on AC TV 500, R 20, PEEP 10, on FiO2 80%. Levophed was off at the time of my examination. Awaiting MRI . 01/26: The time my examination patient is sedated on propofol and this morning he has worsening hypernatremia and creatinine. The time examination patient is on assist control tidal volume 500, rate of 16, PEEP of 10 and 80% FiO2. Patient will follow commands with sedation vacation. Neurology ordered a repeat CT head bleed or large CVA patient can be restarted on p.o. anticoagulation. We will increase the water flushes. Hospitalist Physical - Constitutional Vitals: Temp Pulse Resp BP Pulse Ox 99.4 F 81 22 118/76 95 01/26/21 08:00 01/26/21 08:21 01/26/21 08:21 01/26/21 08:21 01/26/21 08:21 General appearance: Present: no acute distress, well-nourished, obese, other (sedated on mechanical ventilation) - EENT Eyes: Present: PERRL, EOM intact ENT: clear oral mucosa - Neck Neck: Present: normal ROM - Respiratory Respiratory effort: normal Respiratory: bilateral: CTA, diminished - Cardiovascular Rhythm: regular Heart Sounds: Present: S1 & S2. Absent: systolic murmur, diastolic murmur - Extremities Extremities: no ischemia, pulses intact, pulses symmetrical, normal temperature, normal color Peripheral Pulses: within normal limits - Abdominal General gastrointestinal: soft, non-tender, non-distended, normal bowel sounds - Integumentary Integumentary: Present: warm, dry - Psychiatric Psychiatric: cooperative - Neurologic Neurologic: moves all extremities, other (follows commands) - Allied Health Allied health notes reviewed: nursing, RT HEART Score - HEART Score Troponin: Troponin T < 0.010 ng/mL (0.00-0.029) 01/20/21 19:26 Results - Labs CBC & Chem 7: 01/25/21 04:35 01/26/21 04:30 Labs: Laboratory Last Values WBC 6.7 K/mm3 (4.5-11.0) 01/25/21 04:35 RBC 3.87 M/mm3 (3.65-5.03) 01/25/21 04:35 Hgb 12.5 gm/dl (11.8-15.2) 01/25/21 04:35 Hct 37.5 % (35.5-45.6) D 01/25/21 04:35 MCV 97 fl (84-94) H 01/25/21 04:35 MCH 32 pg (28-32) 01/25/21 04:35 MCHC 33 % (32-34) 01/25/21 04:35 RDW 15.3 % (13.2-15.2) H 01/25/21 04:35 Plt Count 184 K/mm3 (140-440) 01/25/21 04:35 Lymph % (Auto) 5.2 % (13.4-35.0) L 01/20/21 19:26 [place] % (Auto) 10.4 % (0.0-7.3) H 01/20/21 19:26 Eos % (Auto) 0.5 % (0.0-4.3) 01/20/21 19:26 Baso % (Auto) 1.0 % (0.0-1.8) 01/20/21 19:26 Lymph # (Auto) 0.3 K/mm3 (1.2-5.4) L 01/20/21 19:26 [place] # (Auto) 0.7 K/mm3 (0.0-0.8) 01/20/21 19: Eos # (Auto) 0.0 K/mm3 (0.0-0.4) 01/20/21 19:26 Baso # (Auto) 0.1 K/mm3 (0.0-0.1) 01/20/21 19:26 Add Manual Diff Complete 01/21/21 05:45 Total Counted 100 01/21/21 05:45 Seg Neutrophils % Ammonium Sulfate Operator 01/21/21 05:45 Seg Neuts % (Manual) 96.0 % (40.0-70.0) H 01/21/21 05:45 Lymphocytes % (Manual) 3.0 % (13.4-35.0) L 01/21/21 05:45 Monocytes % (Manual) 1.0 % (0.0-7.3) 01/21/21 05:45 Nucleated RBC % Not Reportable 01/21/21 05:45 Seg Neutrophils # 5.3 K/mm3 (1.8-7.7) 01/20/21 19:26 Seg Neutrophils # Man 6.8 K/mm3 (1.8-7.7) 01/21/21 05:45 Band Neutrophils # 0.0 K/mm3 01/21/21 05:45 Lymphocytes # (Manual) 0.2 K/mm3 (1.2-5.4) L 01/21/21 05:45 Abs React Lymphs (Man) 0.0 K/mm3 01/21/21 05:45 Monocytes # (Manual) 0.1 K/mm3 (0.0-0.8) 01/21/21 05:45 Eosinophils # (Manual) 0.0 K/mm3 (0.0-0.4) 01/21/21 05:45 Basophils # (Manual) 0.0 K/mm3 (0.0-0.1) 01/21/21 05:45 Metamyelocytes # 0.0 K/mm3 01/21/21 05:45 Myelocytes # 0.0 K/mm3 01/21/21 05:45 Promyelocytes # 0.0 K/mm3 01/21/21 05:45 Blast Cells # 0.0 K/mm3 01/21/21 05:45 WBC Morphology Not Reportable 01/21/21 05:45 Hypersegmented Neuts Not Reportable 01/21/21 05:45 Hyposegmented Neuts Not Reportable 01/21/21 05:45 Hypogranular Neuts Not Reportable 01/21/21 05:45 Smudge Cells Not Reportable 01/21/21 05:45 Toxic Granulation Not Reportable 01/21/21 05:45 Toxic Vacuolation Not Reportable 01/21/21 05:45 Dohle Bodies Not Reportable 01/21/21 05:45 Pelger-Huet Anomaly Not Reportable 01/21/21 05:45 Masood Rods Not Reportable 01/21/21 05:45 Platelet Estimate Consistent w auto 01/21/21 05:45 Clumped Platelets Not Reportable 01/21/21 05:45 Plt Clumps, EDTA Not Reportable 01/21/21 05:45 Large Platelets Not Reportable 01/21/21 05:45 Giant Platelets Not Reportable 01/21/21 05:45 Platelet Satelliting Not Reportable 01/21/21 05:45 Plt Morphology Comment Not Reportable 01/21/21 05:45 RBC Morphology Normal 01/21/21 05:45 Dimorphic RBCs Not Reportable 01/21/21 05:45 Polychromasia Not Reportable 01/21/21 05:45 Hypochromasia Not Reportable 01/21/21 05:45 Poikilocytosis Not Reportable 01/21/21 05:45 Anisocytosis Not Reportable 01/21/21 05:45 Microcytosis Not Reportable 01/21/21 05:45 Macrocytosis Not Reportable 01/21/21 05:45 Spherocytes Not Reportable 01/21/21 05:45 Pappenheimer Bodies Not Reportable 01/21/21 05:45 Sickle Cells Not Reportable 01/21/21 05:45 Target Cells Not Reportable 01/21/21 05:45 Tear Drop Cells Not Reportable 01/21/21 05:45 Ovalocytes Not Reportable 01/21/21 05:45 Helmet Cells Not Reportable 01/21/21 05:45 [place] Bodies Not Reportable 01/21/21 05:45 [place] Rings Not Reportable 01/21/21 05:45 Ab Cells Not Reportable 01/21/21 05:45 Bite Cells Not Reportable 01/21/21 05:45 Crenated Cell Not Reportable 01/21/21 05:45 Elliptocytes Not Reportable 01/21/21 05:45 Acanthocytes (Spur) Not Reportable 01/21/21 05:45 Rouleaux Not Reportable 01/21/21 05:45 Hemoglobin C Crystals Not Reportable 01/21/21 05:45 Schistocytes Not Reportable 01/21/21 05:45 Malaria parasites Not Reportable 01/21/21 05:45 Roney Bodies Not Reportable 01/21/21 05:45 Hem Pathologist Commnt No 01/21/21 05:45 PT 14.5 Sec. (12.2-14.9) 01/21/21 15:13 INR 1.14 (0.87-1.13) H 01/21/21 15:13 APTT 30.5 Sec. (24.2-36.6) 01/21/21 15:13 D-Dimer 229.34 ng/mlDDU (0-234) 01/20/21 23:20 ABG pH 7.424 (7.320-7.450) 01/26/21 03:44 POC ABG pCO2 49.5 mmHg (32.0-48.0) H 01/26/21 03:44 POC ABG pO2 91.7 mmHg (83-108) 01/26/21 03:44 POC ABG HCO3 31.7 01/26/21 03:44 ABG O2 Saturation 97.1 (0-100) 01/26/21 03:44 POC ABG Base Excess 6.2 01/26/21 03:44 ABG Hemoglobin 12.5 (12.0-17.5) 01/26/21 03:44 ABG Oxyhemoglobin 96.0 (94-98) 01/26/21 03:44 ABG Methemoglobin 0.3 (0.0-1.5) 01/26/21 03:44 ABG Sodium 143.8 mmol/L (136.0-145.0) 01/26/21 03:44 ABG Potassium 3.7 mmol/L (3.40-4.50) 01/26/21 03:44 ABG Chloride 104.0 mmol/L (98-107) 01/26/21 03:44 ABG Glucose 153 mg/dL (65-95) H 01/26/21 03:44 Carboxyhemoglobin 0.8 (0.5-1.5) 01/26/21 03:44 FiO2 % 80.0 01/26/21 03:44 Sodium 149 mmol/L (137-145) H 01/26/21 04:30 Potassium 3.7 mmol/L (3.6-5.0) 01/26/21 04:30 Chloride 104.2 mmol/L (98-107) 01/26/21 04:30 Carbon Dioxide 39 mmol/L (22-30) H 01/26/21 04:30 Anion Gap 10 mmol/L 01/26/21 04:30 BUN 35 mg/dL (9-20) H 01/26/21 04:30 Creatinine 1.3 mg/dL (0.8-1.3) 01/26/21 04:30 Estimated GFR > 60 ml/min 01/26/21 04:30 BUN/Creatinine Ratio 27 % 01/26/21 04:30 Glucose 141 mg/dL (75-100) H 01/26/21 04:30 POC Glucose 143 mg/dL (70-105) H 01/26/21 05:31 Lactic Acid 1.50 mmol/L (0.7-2.0) 01/20/21 19:26 Calcium 8.3 mg/dL (8.4-10.2) L 01/26/21 04:30 Phosphorus 2.50 mg/dL (2.5-4.5) D 01/25/21 09:40 Magnesium 2.90 mg/dL (1.7-2.3) H 01/24/21 08:44 Ferritin 128.4 ng/mL (30.0-300.0) 01/20/21 23:20 Total Bilirubin 0.80 mg/dL (0.1-1.2) 01/23/21 17:54 AST 35 units/L (5-40) 01/23/21 17:54 ALT 31 units/L (7-56) 01/23/21 17:54 Alkaline Phosphatase 78 units/L (35-129) 01/23/21 17:54 Ammonia 58.0 umol/L (25-60) 01/22/21 14:19 Lactate Dehydrogenase 384 units/L (91-180) H 01/20/21 23:20 Troponin T < 0.010 ng/mL (0.00-0.029) 01/20/21 19:26 C-Reactive Protein 2.70 mg/dL (0.00-1.30) H 01/20/21 23:20 Total Protein 6.4 g/dL (6.3-8.2) 01/23/21 17:54 Albumin 3.2 g/dL (3.9-5) L 01/23/21 17:54 Albumin/Globulin Ratio 1.0 % 01/23/21 17:54 Triglycerides 49 mg/dL (2-149) 01/21/21 05:45 Cholesterol 210 mg/dL (50-199) H 01/21/21 05:45 LDL Cholesterol Direct 155 mg/dL (50-130) H 01/21/21 05:45 HDL Cholesterol 57 mg/dL (40-59) 01/21/21 05:45 Cholesterol/HDL Ratio 3.68 % 01/21/21 05:45 Procalcitonin 0.13 ng/mL (<0.15) 01/20/21 23:20 Arterial Blood Glucose 153 mg/dL (65-95) H 01/26/21 03:44 Arterial Blood Ionized Calcium 4.5 mg/dL (4.6-5.3) L 01/26/21 03:44 Urine Color Yellow (Yellow) 01/20/21 Unknown Urine Turbidity Clear (Clear) 01/20/21 Unknown Urine pH 6.0 (5.0-7.0) 01/20/21 Unknown Ur Specific [place] 1.022 (1.003-1.030) 01/20/21 Unknown Urine Protein >500 mg/dL (Negative) 01/20/21 Unknown Urine Glucose (UA) Neg mg/dL (Negative) 01/20/21 Unknown Urine Ketones Neg mg/dL (Negative) 01/20/21 Unknown Urine Blood Neg (Negative) 01/20/21 Unknown Urine Nitrite Neg (Negative) 01/20/21 Unknown Urine Bilirubin Neg (Negative) 01/20/21 Unknown Urine Urobilinogen < 2.0 mg/dL (<2.0) 01/20/21 Unknown Ur Leukocyte Esterase Neg (Negative) 01/20/21 Unknown Urine WBC (Auto) 1.0 /HPF (0.0-6.0) 01/20/21 Unknown Urine RBC (Auto) 4.0 /HPF (0.0-6.0) 01/20/21 Unknown U Epithel Cells (Auto) < 1.0 /HPF (0-13.0) 01/20/21 Unknown Coronavirus (PCR) Negative (Negative) 01/21/21 Unknown Microbiology: Microbiology 01/20/21 19:26 Peripheral/Venous Blood Culture - Final NO GROWTH AFTER 5 DAYS 01/20/21 19:26 Peripheral/Venous Blood Culture - Final NO GROWTH AFTER 5 DAYS 01/23/21 13:44 Tracheal Aspirate Sputum Culture - Preliminary Wilde/IV: Voiding Method Condom Catheter Active Medications - Current Medications Current Medications: Generic Name Dose Route Start Last Admin Trade Name Freq PRN Reason Stop Dose Admin Acetaminophen 650 mg 01/20/21 23:38 01/26/21 09:16 Acetaminophen 325 Mg Tab PO 650 mg Q4H PRN Administration Pain MILD(1-3)/Fever >100.5/[place] Acetaminophen 650 mg 01/23/21 08:23 01/24/21 05:34 Acetaminophen 650 Mg Rect Supp [place] 650 mg Q4H PRN Administration Pain, Mild (1-3) IF NPO Albuterol 2.5 mg 01/20/21 23:38 Albuterol 2.5 Mg/3 Ml Nebu IH Q4HRT PRN Shortness Of Breath Lipase/Protease/Amylase 1 each 01/24/21 08:04 Lipase 10,500/Protease 25,000/Amylase 43,750 (Units) Dr Anguiano FEEDTUBE PRN PRN For Clogged Feeding Tube Aspirin 325 mg 01/21/21 10:00 01/26/21 09:15 Aspirin 325 Mg Tab PO 325 mg QDAY NGUYEN Administration Atorvastatin Calcium 80 mg 01/21/21 10:00 01/26/21 09:17 Atorvastatin 40 Mg Tab PO 80 mg DAILY NGUYEN Administration Dextrose 0 ml 01/20/21 23:38 Dextrose 50% In Water (25gm) 50 Ml Syringe IV Q30MIN PRN Hypoglycemia Protocol Famotidine 20 mg 01/24/21 10:00 01/26/21 09:15 Famotidine 20 Mg/2 Ml Inj IV 20 mg BID NGUYEN Administration Fentanyl 50 mcg 01/23/21 16:00 01/24/21 10:57 Fentanyl 100 Mcg/2 Ml Inj IV 50 mcg Q2H PRN Administration Pain , Severe (7-10) Furosemide 40 mg 01/24/21 10:00 01/26/21 09:15 Furosemide 40 Mg/4 Ml Inj IV 40 mg QDAY NGUYEN Administration Heparin Sodium (Porcine) 5,000 unit 01/23/21 22:00 01/26/21 06:00 Heparin 5,000 Unit/1 Ml Vial SUB-Q 5,000 unit Q8HR NGUYEN Administration Hydralazine HCl 10 mg 01/20/21 23:46 Hydralazine 20 Mg/1 Ml Inj IV Q6H PRN htn Norepinephrine 4 mg in 250 mls @ 7.5 mls/hr 01/23/21 13:00 01/25/21 06:25 Levophed Drip 4 Mg/Ns 250 Ml IV 0 mcg/min TITR NGUYEN 0 mls/hr Titration Protocol 2 MCG/MIN Propofol 1,000 mg in 100 mls @ 3.468 mls/hr 01/24/21 11:00 01/26/21 04:58 Diprivan 10 Mg/Ml IV 20 mcg/kg/min TITR NGUYEN 13.872 mls/hr Administration Protocol 5 MCG/KG/MIN Insulin Human Lispro 0 unit 01/21/21 00:00 01/26/21 06:04 Insulin Lispro 100 Unit/Ml SUB-Q Not Given Q6HR [facility] Protocol Lorazepam 2 mg 01/23/21 12:22 01/24/21 04:20 Lorazepam 2 Mg/Ml Vial IV 2 mg Q4H PRN Administration Agitation Ondansetron HCl 4 mg 01/20/21 23:38 Ondansetron 4 Mg/2 Ml Inj IV Q8H PRN Nausea And Vomiting Simple Syrup 15 ml 01/24/21 08:04 Simple Syrup 15 Ml FEEDTUBE PRN PRN Hypoglycemia Simple Syrup 30 ml 01/24/21 08:04 Simple Syrup 15 Ml FEEDTUBE PRN PRN Hypoglycemia Sodium Bicarbonate 325 mg 01/24/21 08:04 Sodium Bicarbonate 325 Mg Tab FEEDTUBE PRN PRN For Clogged Feeding Tube Sodium Chloride 10 ml 01/21/21 10:00 01/26/21 09:17 Sodium Chloride 0.9% 10 Ml Flush Syringe IV 10 ml BID NGUYEN Administration Sodium Chloride 10 ml 01/20/21 23:38 Sodium Chloride 0.9% 10 Ml Flush Syringe IV PRN PRN LINE FLUSH Nutrition/Malnutrition Assess - Dietary Evaluation Nutrition/Malnutrition Findings: Nutrition Notes Start: 01/21/21 11:4 5 Freq: Status: Active Protocol: Document 01/24/21 07:54 (Rec: 01/24/21 08:03 [id number]) Nutrition Notes Need for Assessment generated from: MD Order Initial or Follow up Assessment Current Diagnosis Diabetes,Hypertension, Respiratory Failure Other Pertinent Diagnosis encephalopathy, pneu Current Diet NPO Labs/Tests Na 147 BUN 33 Cr 1.5 Pertinent Medications Levophed Height 5 ft 9 in Weight 115.6 kg [place] Body Weight (kg) 72.72 BMI 37.6 Weight Status Morbidly Obese Subjective/Other Information MD order for TF. Pt now intubated. Burn Absent Trauma Absent Current % PO Negligible Minimum of two criteria No Fluid Accumulation Mild (non-severe) #1 Nutrition Diagnosis Inadequate oral intake Etiology ARF As Evidenced by Signs and Symptoms pt on vent and unable to consume PO Is patient on ventilator? Yes Is Patient Ambulatory and/or Out of Bed No REE-([facility]-confined to bed) 2328.408 Kcal/Kg value to use for calculation 16 Approximate Energy Requirements Using 1850 kcal/Kg Calculation Used for Recommendations Kcal/kg Additional Notes Protein: (>2.5g/kg IBW) >182g Fluid: 1 ml/kcal or per MD Nutrition Intervention Change Diet Order: Start TF Nutrition Support: Vital AF 1.2 at 65 ml/hr Flush 200 ml q4h for hypernatermia. Once resolved, flush 100 ml q4h. Kcal 1,872 Protein (gm) 117 Fluid (mL) 1,265 Goal #1 Meet at least 75% of kcal needs and 60% of protein needs via TF Anticipated Discharge Needs: Unable to determine at this time Follow-Up By: 01/28/21 Additional Comments FU for TF start and tolerance <JUAN FERRER Benjamín - Last Filed: 01/26/21 15:29> History Interval history: I saw and evaluated the patient and discussed with Nurse Practitioner. I agree with the findings and the plan of care as documented in the Nurse Practitioner's note. Hospitalist Physical - Constitutional Vitals: Temp Pulse Resp BP Pulse Ox 100.7 F H 86 14 135/76 93 01/26/21 12:21 01/26/21 14:40 01/26/21 14:40 01/26/21 14:40 01/26/21 14:40 HEART Score - HEART Score Troponin: Troponin T < 0.010 ng/mL (0.00-0.029) 01/20/21 19:26 Results - Labs CBC & Chem 7: 01/25/21 04:35 01/26/21 04:30 Labs: Laboratory Last Values WBC 6.7 K/mm3 (4.5-11.0) 01/25/21 04:35 RBC 3.87 M/mm3 (3.65-5.03) 01/25/21 04:35 Hgb 12.5 gm/dl (11.8-15.2) 01/25/21 04:35 Hct 37.5 % (35.5-45.6) D 01/25/21 04:35 MCV 97 fl (84-94) H 01/25/21 04:35 MCH 32 pg (28-32) 01/25/21 04:35 MCHC 33 % (32-34) 01/25/21 04:35 RDW 15.3 % (13.2-15.2) H 01/25/21 04:35 Plt Count 184 K/mm3 (140-440) 01/25/21 04:35 Lymph % (Auto) 5.2 % (13.4-35.0) L 01/20/21 19:26 [place] % (Auto) 10.4 % (0.0-7.3) H 01/20/21 19:26 Eos % (Auto) 0.5 % (0.0-4.3) 01/20/21 19:26 Baso % (Auto) 1.0 % (0.0-1.8) 01/20/21 19:26 Lymph # (Auto) 0.3 K/mm3 (1.2-5.4) L 01/20/21 19:26 [place] # (Auto) 0.7 K/mm3 (0.0-0.8) 01/20/21 19:26 Eos # (Auto) 0.0 K/mm3 (0.0-0.4) 01/20/21 19:26 Baso # (Auto) 0.1 K/mm3 (0.0-0.1) 01/20/21 19:26 Add Manual Diff Complete 01/21/21 05:45 Total Counted 100 01/21/21 05:45 Seg Neutrophils % Ammonium Sulfate Operator 01/21/21 05:45 Seg Neuts % (Manual) 96.0 % (40.0-70.0) H 01/21/21 05:45 Lymphocytes % (Manual) 3.0 % (13.4-35.0) L 01/21/21 05:45 Monocytes % (Manual) 1.0 % (0.0-7.3) 01/21/21 05:45 Nucleated RBC % Not Reportable 01/21/21 05:45 Seg Neutrophils # 5.3 K/mm3 (1.8-7.7) 01/20/21 19:26 Seg Neutrophils # Man 6.8 K/mm3 (1.8-7.7) 01/21/21 05:45 Band Neutrophils # 0.0 K/mm3 01/21/21 05:45 Lymphocytes # (Manual) 0.2 K/mm3 (1.2-5.4) L 01/21/21 05:45 Abs React Lymphs (Man) 0.0 K/mm3 01/21/21 05:45 Monocytes # (Manual) 0.1 K/mm3 (0.0-0.8) 01/21/21 05:45 Eosinophils # (Manual) 0.0 K/mm3 (0.0-0.4) 01/21/21 05:45 Basophils # (Manual) 0.0 K/mm3 (0.0-0.1) 01/21/21 05:45 Metamyelocytes # 0.0 K/mm3 01/21/21 05:45 Myelocytes # 0.0 K/mm3 01/21/21 05:45 Promyelocytes # 0.0 K/mm3 01/21/21 05:45 Blast Cells # 0.0 K/mm3 01/21/21 05:45 WBC Morphology Not Reportable 01/21/21 05:45 Hypersegmented Neuts Not Reportable 01/21/21 05:45 Hyposegmented Neuts Not Reportable 01/21/21 05:45 Hypogranular Neuts Not Reportable 01/21/21 05:45 Smudge Cells Not Reportable 01/21/21 05:45 Toxic Granulation Not Reportable 01/21/21 05:45 Toxic Vacuolation Not Reportable 01/21/21 05:45 Dohle Bodies Not Reportable 01/21/21 05:45 Pelger-Huet Anomaly Not Reportable 01/21/21 05:45 Masood Rods Not Reportable 01/21/21 05:45 Platelet Estimate Consistent w auto 01/21/21 05:45 Clumped Platelets Not Reportable 01/21/21 05:45 Plt Clumps, EDTA Not Reportable 01/21/21 05:45 Large Platelets Not Reportable 01/21/21 05:45 Giant Platelets Not Reportable 01/21/21 05:45 Platelet Satelliting Not Reportable 01/21/21 05:45 Plt Morphology Comment Not Reportable 01/21/21 05:45 RBC Morphology Normal 01/21/21 05:45 Dimorphic RBCs Not Reportable 01/21/21 05:45 Polychromasia Not Reportable 01/21/21 05:45 Hypochromasia Not Reportable 01/21/21 05:45 Poikilocytosis Not Reportable 01/21/21 05:45 Anisocytosis Not Reportable 01/21/21 05:45 Microcytosis Not Reportable 01/21/21 05:45 Macrocytosis Not Reportable 01/21/21 05:45 Spherocytes Not Reportable 01/21/21 05:45 Pappenheimer Bodies Not Reportable 01/21/21 05:45 Sickle Cells Not Reportable 01/21/21 05:45 Target Cells Not Reportable 01/21/21 05:45 Tear Drop Cells Not Reportable 01/21/21 05:45 Ovalocytes Not Reportable 01/21/21 05:45 Helmet Cells Not Reportable 01/21/21 05:45 [place] Bodies Not Reportable 01/21/21 05:45 [place] Rings Not Reportable 01/21/21 05:45 Ab Cells Not Reportable 01/21/21 05:45 Bite Cells Not Reportable 01/21/21 05:45 Crenated Cell Not Reportable 01/21/21 05:45 Elliptocytes Not Reportable 01/21/21 05:45 Acanthocytes (Spur) Not Reportable 01/21/21 05:45 Rouleaux Not Reportable 01/21/21 05:45 Hemoglobin C Crystals Not Reportable 01/21/21 05:45 Schistocytes Not Reportable 01/21/21 05:45 Malaria parasites Not Reportable 01/21/21 05:45 Roney Bodies Not Reportable 01/21/21 05:45 Hem Pathologist Commnt No 01/21/21 05:45 PT 14.5 Sec. (12.2-14.9) 01/21/21 15:13 INR 1.14 (0.87-1.13) H 01/21/21 15:13 APTT 30.5 Sec. (24.2-36.6) 01/21/21 15:13 D-Dimer 229.34 ng/mlDDU (0-234) 01/20/21 23:20 ABG pH 7.424 (7.320-7.450) 01/26/21 03:44 POC ABG pCO2 49.5 mmHg (32.0-48.0) H 01/26/21 03:44 POC ABG pO2 91.7 mmHg (83-108) 01/26/21 03:44 POC ABG HCO3 31.7 01/26/21 03:44 ABG O2 Saturation 97.1 (0-100) 01/26/21 03:44 POC ABG Base Excess 6.2 01/26/21 03:44 ABG Hemoglobin 12.5 (12.0-17.5) 01/26/21 03:44 ABG Oxyhemoglobin 96.0 (94-98) 01/26/21 03:44 ABG Methemoglobin 0.3 (0.0-1.5) 01/26/21 03:44 ABG Sodium 143.8 mmol/L (136.0-145.0) 01/26/21 03:44 ABG Potassium 3.7 mmol/L (3.40-4.50) 01/26/21 03:44 ABG Chloride 104.0 mmol/L (98-107) 01/26/21 03:44 ABG Glucose 153 mg/dL (65-95) H 01/26/21 03:44 Carboxyhemoglobin 0.8 (0.5-1.5) 01/26/21 03:44 FiO2 % 80.0 01/26/21 03:44 Sodium 149 mmol/L (137-145) H 01/26/21 04:30 Potassium 3.7 mmol/L (3.6-5.0) 01/26/21 04:30 Chloride 104.2 mmol/L (98-107) 01/26/21 04:30 Carbon Dioxide 39 mmol/L (22-30) H 01/26/21 04:30 Anion Gap 10 mmol/L 01/26/21 04:30 BUN 35 mg/dL (9-20) H 01/26/21 04:30 Creatinine 1.3 mg/dL (0.8-1.3) 01/26/21 04:30 Estimated GFR > 60 ml/min 01/26/21 04:30 BUN/Creatinine Ratio 27 % 01/26/21 04:30 Glucose 141 mg/dL (75-100) H 01/26/21 04:30 POC Glucose 145 mg/dL (70-105) H 01/26/21 11:35 Lactic Acid 1.50 mmol/L (0.7-2.0) 01/20/21 19:26 Calcium 8.3 mg/dL (8.4-10.2) L 01/26/21 04:30 Phosphorus 2.50 mg/dL (2.5-4.5) D 01/25/21 09:40 Magnesium 2.90 mg/dL (1.7-2.3) H 01/24/21 08:44 Ferritin 128.4 ng/mL (30.0-300.0) 01/20/21 23:20 Total Bilirubin 0.80 mg/dL (0.1-1.2) 01/23/21 17:54 AST 35 units/L (5-40) 01/23/21 17:54 ALT 31 units/L (7-56) 01/23/21 17:54 Alkaline Phosphatase 78 units/L (35-129) 01/23/21 17:54 Ammonia 58.0 umol/L (25-60) 01/22/21 14:19 Lactate Dehydrogenase 384 units/L (91-180) H 01/20/21 23:20 Troponin T < 0.010 ng/mL (0.00-0.029) 01/20/21 19:26 C-Reactive Protein 2.70 mg/dL (0.00-1.30) H 01/20/21 23:20 Total Protein 6.4 g/dL (6.3-8.2) 01/23/21 17:54 Albumin 3.2 g/dL (3.9-5) L 01/23/21 17:54 Albumin/Globulin Ratio 1.0 % 01/23/21 17:54 Triglycerides 49 mg/dL (2-149) 01/21/21 05:45 Cholesterol 210 mg/dL (50-199) H 01/21/21 05:45 LDL Cholesterol Direct 155 mg/dL (50-130) H 01/21/21 05:45 HDL Cholesterol 57 mg/dL (40-59) 01/21/21 05:45 Cholesterol/HDL Ratio 3.68 % 01/21/21 05:45 Procalcitonin 0.13 ng/mL (<0.15) 01/20/21 23:20 Arterial Blood Glucose 153 mg/dL (65-95) H 01/26/21 03:44 Arterial Blood Ionized Calcium 4.5 mg/dL (4.6-5.3) L 01/26/21 03:44 Urine Color Yellow (Yellow) 01/20/21 Unknown Urine Turbidity Clear (Clear) 01/20/21 Unknown Urine pH 6.0 (5.0-7.0) 01/20/21 Unknown Ur Specific [place] 1.022 (1.003-1.030) 01/20/21 Unknown Urine Protein >500 mg/dL (Negative) 01/20/21 Unknown Urine Glucose (UA) Neg mg/dL (Negative) 01/20/21 Unknown Urine Ketones Neg mg/dL (Negative) 01/20/21 Unknown Urine Blood Neg (Negative) 01/20/21 Unknown Urine Nitrite Neg (Negative) 01/20/21 Unknown Urine Bilirubin Neg (Negative) 01/20/21 Unknown Urine Urobilinogen < 2.0 mg/dL (<2.0) 01/20/21 Unknown Ur Leukocyte Esterase Neg (Negative) 01/20/21 Unknown Urine WBC (Auto) 1.0 /HPF (0.0-6.0) 01/20/21 Unknown Urine RBC (Auto) 4.0 /HPF (0.0-6.0) 01/20/21 Unknown U Epithel Cells (Auto) < 1.0 /HPF (0-13.0) 01/20/21 Unknown Coronavirus (PCR) Negative (Negative) 01/21/21 Unknown Microbiology: Microbiology 01/20/21 19:26 Peripheral/Venous Blood Culture - Final NO GROWTH AFTER 5 DAYS 01/20/21 19:26 Peripheral/Venous Blood Culture - Final NO GROWTH AFTER 5 DAYS 01/23/21 13:44 Tracheal Aspirate Sputum Culture - Preliminary Wilde/IV: Voiding Method Condom Catheter Active Medications - Current Medications Current Medications: Generic Name Dose Route Start Last Admin Trade Name Freq PRN Reason Stop Dose Admin Acetaminophen 650 mg 01/20/21 23:38 01/26/21 12:25 Acetaminophen 325 Mg Tab PO 650 mg Q4H PRN Administration Pain MILD(1-3)/Fever >100.5/[place] Acetaminophen 650 mg 01/23/21 08:23 01/24/21 05:34 Acetaminophen 650 Mg Rect Supp [place] 650 mg Q4H PRN Administration Pain, Mild (1-3) IF NPO Albuterol 2.5 mg 01/20/21 23:38 Albuterol 2.5 Mg/3 Ml Nebu IH Q4HRT PRN Shortness Of Breath Lipase/Protease/Amylase 1 each 01/24/21 08:04 Lipase 10,500/Protease 25,000/Amylase 43,750 (Units) Dr Anguiano FEEDTUBE PRN PRN For Clogged Feeding Tube Aspirin 325 mg 01/21/21 10:00 01/26/21 09:15 Aspirin 325 Mg Tab PO 325 mg QDAY NGUYEN Administration Atorvastatin Calcium 80 mg 01/21/21 10:00 01/26/21 09:17 Atorvastatin 40 Mg Tab PO 80 mg DAILY NGUYEN Administration Dextrose 0 ml 01/20/21 23:38 Dextrose 50% In Water (25gm) 50 Ml Syringe IV Q30MIN PRN Hypoglycemia Protocol Famotidine 20 mg 01/24/21 10:00 01/26/21 09:15 Famotidine 20 Mg/2 Ml Inj IV 20 mg BID NGUYEN Administration Fentanyl 50 mcg 01/23/21 16:00 01/24/21 10:57 Fentanyl 100 Mcg/2 Ml Inj IV 50 mcg Q2H PRN Administration Pain , Severe (7-10) Furosemide 40 mg 01/24/21 10:00 01/26/21 09:15 Furosemide 40 Mg/4 Ml Inj IV 40 mg QDAY NGUYEN Administration Heparin Sodium (Porcine) 5,000 unit 01/23/21 22:00 01/26/21 13:34 Heparin 5,000 Unit/1 Ml Vial SUB-Q 5,000 unit Q8HR NGUYEN Administration Hydralazine HCl 10 mg 01/20/21 23:46 Hydralazine 20 Mg/1 Ml Inj IV Q6H PRN htn Norepinephrine 4 mg in 250 mls @ 7.5 mls/hr 01/23/21 13:00 01/25/21 06:25 Levophed Drip 4 Mg/Ns 250 Ml IV 0 mcg/min TITR NGUYEN 0 mls/hr Titration Protocol 2 MCG/MIN Propofol 1,000 mg in 100 mls @ 3.468 mls/hr 01/24/21 11:00 01/26/21 10:44 Diprivan 10 Mg/Ml IV 20 mcg/kg/min TITR NGUYEN 13.872 mls/hr Administration Protocol 5 MCG/KG/MIN Insulin Human Lispro 0 unit 01/21/21 00:00 01/26/21 12:26 Insulin Lispro 100 Unit/Ml SUB-Q 2 unit Q6HR NGUYEN Administration Protocol Lorazepam 2 mg 01/23/21 12:22 01/24/21 04:20 Lorazepam 2 Mg/Ml Vial IV 2 mg Q4H PRN Administration Agitation Ondansetron HCl 4 mg 01/20/21 23:38 Ondansetron 4 Mg/2 Ml Inj IV Q8H PRN Nausea And Vomiting Simple Syrup 15 ml 01/24/21 08:04 Simple Syrup 15 Ml FEEDTUBE PRN PRN Hypoglycemia Simple Syrup 30 ml 01/24/21 08:04 Simple Syrup 15 Ml FEEDTUBE PRN PRN Hypoglycemia Sodium Bicarbonate 325 mg 01/24/21 08:04 Sodium Bicarbonate 325 Mg Tab FEEDTUBE PRN PRN For Clogged Feeding Tube Sodium Chloride 10 ml 01/21/21 10:00 01/26/21 09:17 Sodium Chloride 0.9% 10 Ml Flush Syringe IV 10 ml BID NGUYEN Administration Sodium Chloride 10 ml 01/20/21 23:38 Sodium Chloride 0.9% 10 Ml Flush Syringe IV PRN PRN LINE FLUSH Nutrition/Malnutrition Assess - Dietary Evaluation Nutrition/Malnutrition Findings: Nutrition Notes Start: 01/21/21 11:45 Freq: Status: Active Protocol: Document 01/24/21 07:54 (Rec: 01/24/21 08:03 [email or web address]) Nutrition Notes Need for Assessment generated from: MD Order Initial or Follow up Assessment Current Diagnosis Diabetes,Hypertension, Respiratory Failure Other Pertinent Diagnosis encephalopathy, pneu Current Diet NPO Labs/Tests Na 147 BUN 33 Cr 1.5 Pertinent Medications Levophed Height 5 ft 9 in Weight 115.6 kg [place] Body Weight (kg) 72.72 BMI 37.6 Weight Status Morbidly Obese Subjective/Other Information MD order for TF. Pt now intubated. Burn Absent Trauma Absent Current % PO Negligible Minimum of two criteria No Fluid Accumulation Mild (non-severe) #1 Nutrition Diagnosis Inadequate oral intake Etiology ARF As Evidenced by Signs and Symptoms pt on vent and unable to consume PO Is patient on ventilator? Yes Is Patient Ambulatory and/or Out of Bed No REE-([facility]-confined to bed) 2328.408 Kcal/Kg value to use for calculation 16 Approximate Energy Requirements Using 1850 kcal/Kg Calculation Used for Recommendations Kcal/kg Additional Notes Protein: (>2.5g/kg IBW) >182g Fluid: 1 ml/kcal or per MD Nutrition Intervention Change Diet Order: Start TF Nutrition Support: Vital AF 1.2 at 65 ml/hr Flush 200 ml q4h for hypernatermia. Once resolved, flush 100 ml q4h. Kcal 1,872 Protein (gm) 117 Fluid (mL) 1,265 Goal #1 Meet at least 75% of kcal needs and 60% of protein needs via TF Anticipated Discharge Needs: Unable to determine at this time Follow-Up By: 01/28/21 Additional Comments FU for TF start and tolerance
--- NOTE | 2021-01-26 12:00 | Progress Note ---
Assessment and Plan 65 y/o male with acute respiratory failure secondary to altered mental state from possible stroke vs worsening stroke with hypotension requiring pressors. 01/26/21: Continue supportive measures. Agree with repeat Head CT. Sedation for patient safety but needs daily vacations. Guarded prognosis. 1. Place central line 2. Place art line 3. Vasopressor therapy 4. No sedation as of right now 5. Consider repeat CT head 6. Guarded prognosis. CCT 31 minutes. Subjective Date of service: 01/26/21 Principal diagnosis: CVA Interval history: No acute events. ABG improving, mental state that same. Objective Vital Signs - 12hr 01/26/21 01/26/21 01/26/21 00:00 00:10 00:11 Temperature Pulse Rate 80 72 86 Pulse Rate [ 78 From Monitor] Respiratory 16 16 Rate Blood Pressure 115/72 124/73 115/72 O2 Sat by Pulse 97 94 97 Oximetry 01/26/21 01/26/21 01/26/21 00:21 00:30 00:41 Temperature Pulse Rate 78 74 80 Pulse Rate [ From Monitor] Respiratory 16 16 17 Rate Blood Pressure 111/72 114/70 114/70 O2 Sat by Pulse 98 97 97 Oximetry 01/26/21 01/26/21 01/26/21 00:51 01:00 01:11 Temperature Pulse Rate 78 80 76 Pulse Rate [ From Monitor] Respiratory 13 15 16 Rate Blood Pressure 102/71 112/72 112/72 O2 Sat by Pulse 97 98 98 Oximetry 01/26/21 01/26/21 01/26/21 01:21 01:30 01:41 Temperature Pulse Rate 67 83 77 Pulse Rate [ From Monitor] Respiratory 16 14 16 Rate Blood Pressure 113/67 118/77 118/77 O2 Sat by Pulse 97 97 97 Oximetry 01/26/21 01/26/21 01/26/21 01:51 02:00 02:11 Temperature Pulse Rate 76 80 71 Pulse Rate [ From Monitor] Respiratory 16 16 16 Rate Blood Pressure 103/73 119/74 119/74 O2 Sat by Pulse 98 99 99 Oximetry 01/26/21 01/26/21 01/26/21 02:21 02:30 02:41 Temperature Pulse Rate 82 80 70 Pulse Rate [ From Monitor] Respiratory 15 16 17 Rate Blood Pressure 117/74 110/74 119/74 O2 Sat by Pulse 98 98 98 Oximetry 01/26/21 01/26/21 01/26/21 02:51 03:00 03:11 Temperature Pulse Rate 85 83 90 Pulse Rate [ From Monitor] Respiratory 12 16 14 Rate Blood Pressure 103/69 110/70 110/70 O2 Sat by Pulse 98 98 97 Oximetry 01/26/21 01/26/21 01/26/21 03:17 03:21 03:30 Temperature 102.4 F H Pulse Rate 83 80 Pulse Rate [ From Monitor] Respiratory 16 16 Rate Blood Pressure 120/71 113/69 O2 Sat by Pulse 98 99 Oximetry 01/26/21 01/26/21 01/26/21 03:41 03:51 04:00 Temperature Pulse Rate 82 76 77 Pulse Rate [ 78 From Monitor] Respiratory 16 16 16 Rate Blood Pressure 113/69 104/70 97/68 O2 Sat by Pulse 98 98 98 Oximetry 01/26/21 01/26/21 01/26/21 04:10 04:11 04:21 Temperature Pulse Rate 80 78 77 Pulse Rate [ From Monitor] Respiratory 14 16 Rate Blood Pressure 114/69 97/68 79/38 O2 Sat by Pulse 93 96 85 Oximetry 01/26/21 01/26/21 01/26/21 04:30 04:41 04:51 Temperature Pulse Rate 80 76 74 Pulse Rate [ From Monitor] Respiratory 16 16 16 Rate Blood Pressure 124/73 124/73 124/73 O2 Sat by Pulse 92 92 93 Oximetry 01/26/21 01/26/21 01/26/21 05:00 05:11 05:21 Temperature Pulse Rate 75 69 75 Pulse Rate [ From Monitor] Respiratory 16 15 16 Rate Blood Pressure 114/69 114/69 114/69 O2 Sat by Pulse 94 94 95 Oximetry 01/26/21 01/26/21 01/26/21 05:30 05:41 05:51 Temperature Pulse Rate 78 82 79 Pulse Rate [ From Monitor] Respiratory 16 15 15 Rate Blood Pressure 124/73 124/73 124/73 O2 Sat by Pulse 94 95 95 Oximetry 01/26/21 01/26/21 01/26/21 06:00 06:11 06:21 Temperature Pulse Rate 74 76 70 Pulse Rate [ From Monitor] Respiratory 16 16 16 Rate Blood Pressure 112/68 112/68 112/68 O2 Sat by Pulse 95 96 96 Oximetry 01/26/21 01/26/21 01/26/21 06:30 06:41 06:51 Temperature Pulse Rate 73 78 82 Pulse Rate [ From Monitor] Respiratory 16 16 15 Rate Blood Pressure 121/76 112/68 112/68 O2 Sat by Pulse 97 97 95 Oximetry 01/26/21 01/26/21 01/26/21 07:00 07:09 07:11 Temperature Pulse Rate 72 80 66 Pulse Rate [ From Monitor] Respiratory 16 15 Rate Blood Pressure 112/66 112/66 112/66 O2 Sat by Pulse 95 96 96 Oximetry 01/26/21 01/26/21 01/26/21 07:21 07:30 07:41 Temperature Pulse Rate 74 80 78 Pulse Rate [ From Monitor] Respiratory 14 16 16 Rate Blood Pressure 112/66 120/75 120/75 O2 Sat by Pulse 93 95 95 Oximetry 01/26/21 01/26/21 01/26/21 07:51 08:00 08:11 Temperature 99.4 F Pulse Rate 76 75 74 Pulse Rate [ 73 From Monitor] Respiratory 16 16 16 Rate Blood Pressure 120/75 118/76 118/76 O2 Sat by Pulse 95 94 96 Oximetry 01/26/21 01/26/21 01/26/21 08:21 08:30 08:41 Temperature Pulse Rate 81 79 83 Pulse Rate [ From Monitor] Respiratory 22 15 17 Rate Blood Pressure 118/76 110/80 110/80 O2 Sat by Pulse 95 94 94 Oximetry 01/26/21 01/26/21 01/26/21 08:51 09:01 09:11 Temperature Pulse Rate 85 91 H 84 Pulse Rate [ From Monitor] Respiratory 16 16 15 Rate Blood Pressure 110/80 127/79 127/79 O2 Sat by Pulse 94 92 93 Oximetry 01/26/21 01/26/21 01/26/21 09:21 09:30 09:40 Temperature Pulse Rate 94 H 88 93 H Pulse Rate [ From Monitor] Respiratory 16 17 16 Rate Blood Pressure 127/79 132/81 132/81 O2 Sat by Pulse 91 90 91 Oximetry 01/26/21 01/26/21 01/26/21 09:50 10:00 10:10 Temperature Pulse Rate 88 93 H 91 H Pulse Rate [ From Monitor] Respiratory 17 16 16 Rate Blood Pressure 132/81 115/78 132/81 O2 Sat by Pulse 91 91 92 Oximetry 01/26/21 01/26/21 01/26/21 10:20 10:30 10:40 Temperature Pulse Rate 93 H 89 85 Pulse Rate [ From Monitor] Respiratory 16 16 13 Rate Blood Pressure 132/81 116/75 116/75 O2 Sat by Pulse 91 91 92 Oximetry 01/26/21 01/26/21 01/26/21 10:50 11:00 11:01 Temperature Pulse Rate 92 H 89 84 Pulse Rate [ From Monitor] Respiratory 16 16 Rate Blood Pressure 115/78 108/74 116/75 O2 Sat by Pulse 92 93 92 Oximetry Constitutional: comatose Eyes: non-icteric ENT: other (orally intubated, no sedation) Neck: supple Effort: normal Ascultation: Bilateral: diminished breath sounds Percussion: Bilateral: not dull Cardiovascular: irregular rhythm Gastrointestinal: normoactive bowel sounds Integumentary: normal Extremities: no edema, pulses normal Neurologic: unable to assess CBC and BMP: 01/25/21 04:35 01/26/21 04:30 ABG, PT/INR, D-dimer: ABG ABG pH 7.424 (7.320-7.450) 01/26/21 03:44 POC ABG pCO2 49.5 mmHg (32.0-48.0) H 01/26/21 03:44 POC ABG pO2 91.7 mmHg (83-108) 01/26/21 03:44 POC ABG HCO3 31.7 01/26/21 03:44 ABG O2 Saturation 97.1 (0-100) 01/26/21 03:44 PT/INR, D-dimer PT 14.5 Sec. (12.2-14.9) 01/21/21 15:13 INR 1.14 (0.87-1.13) H 01/21/21 15:13 D-Dimer 229.34 ng/mlDDU (0-234) 01/20/21 23:20 Abnormal lab findings: Abnormal Labs 01/20/21 01/20/21 01/20/21 19:26 19:26 23:20 Hgb 15.3 H Hct 45.8 H MCV 98 H MCH 33 H RDW Lymph % (Auto) 5.2 L [place] % (Auto) 10.4 H Lymph # (Auto) 0.3 L Seg Neutrophils % 82.9 H Seg Neuts % (Manual) Lymphocytes % (Manual) Lymphocytes # (Manual) INR ABG pH POC ABG pCO2 POC ABG pO2 ABG Oxyhemoglobin ABG Potassium ABG Glucose Sodium Potassium Chloride 97.8 L Carbon Dioxide 33 H BUN Creatinine Glucose 127 H POC Glucose Calcium Phosphorus Magnesium Lactate Dehydrogenase 384 H C-Reactive Protein 2.70 H Albumin Cholesterol LDL Cholesterol Direct Arterial Blood Glucose Arterial Blood Ionized Calcium 01/21/21 01/21/21 01/21/21 00:17 05:45 05:45 Hgb 15.9 H Hct 47.9 H MCV 98 H MCH 33 H RDW 15.3 H Lymph % (Auto) [place] % (Auto) Lymph # (Auto) Seg Neutrophils % Seg Neuts % (Manual) 96.0 H Lymphocytes % (Manual) 3.0 L Lymphocytes # (Manual) 0.2 L INR ABG pH POC ABG pCO2 POC ABG pO2 ABG Oxyhemoglobin ABG Potassium ABG Glucose Sodium Potassium Chloride 96.2 L Carbon Dioxide 35 H BUN Creatinine 0.7 L Glucose 142 H POC Glucose 119 H Calcium Phosphorus Magnesium Lactate Dehydrogenase C-Reactive Protein Albumin Cholesterol 210 H LDL Cholesterol Direct 155 H Arterial Blood Glucose Arterial Blood Ionized Calcium 01/21/21 01/21/21 01/21/21 05:56 09:33 15:13 Hgb Hct 45.8 H MCV 98 H MCH RDW Lymph % (Auto) [place] % (Auto) Lymph # (Auto) Seg Neutrophils % Seg Neuts % (Manual) Lymphocytes % (Manual) Lymphocytes # (Manual) INR ABG pH POC ABG pCO2 POC ABG pO2 ABG Oxyhemoglobin ABG Potassium ABG Glucose Sodium Potassium Chloride Carbon Dioxide BUN Creatinine Glucose POC Glucose 147 H 153 H Calcium Phosphorus Magnesium Lactate Dehydrogenase C-Reactive Protein Albumin Cholesterol LDL Cholesterol Direct Arterial Blood Glucose Arterial Blood Ionized Calcium 01/21/21 01/21/21 01/22/21 15:13 16:33 01:53 Hgb Hct MCV MCH RDW Lymph % (Auto) [place] % (Auto) Lymph # (Auto) Seg Neutrophils % Seg Neuts % (Manual) Lymphocytes % (Manual) Lymphocytes # (Manual) INR 1.14 H ABG pH POC ABG pCO2 POC ABG pO2 ABG Oxyhemoglobin ABG Potassium ABG Glucose Sodium Potassium Chloride Carbon Dioxide BUN Creatinine Glucose POC Glucose 126 H 112 H Calcium Phosphorus Magnesium Lactate Dehydrogenase C-Reactive Protein Albumin Cholesterol LDL Cholesterol Direct Arterial Blood Glucose Arterial Blood Ionized Calcium 01/22/21 01/22/21 01/22/21 06:06 12:05 16:51 Hgb Hct MCV MCH RDW Lymph % (Auto) [place] % (Auto) Lymph # (Auto) Seg Neutrophils % Seg Neuts % (Manual) Lymphocytes % (Manual) Lymphocytes # (Manual) INR ABG pH POC ABG pCO2 POC ABG pO2 ABG Oxyhemoglobin ABG Potassium ABG Glucose Sodium Potassium Chloride Carbon Dioxide BUN Creatinine Glucose POC Glucose 107 H 121 H 164 H Calcium Phosphorus Magnesium Lactate Dehydrogenase C-Reactive Protein Albumin Cholesterol LDL Cholesterol Direct Arterial Blood Glucose Arterial Blood Ionized Calcium 01/22/21 01/23/21 01/23/21 23:10 05:39 06:08 Hgb Hct MCV 101 H MCH 33 H RDW Lymph % (Auto) [place] % (Auto) Lymph # (Auto) Seg Neutrophils % Seg Neuts % (Manual) Lymphocytes % (Manual) Lymphocytes # (Manual) INR ABG pH POC ABG pCO2 POC ABG pO2 ABG Oxyhemoglobin ABG Potassium ABG Glucose Sodium Potassium Chloride Carbon Dioxide BUN Creatinine Glucose POC Glucose 143 H 150 H Calcium Phosphorus Magnesium Lactate Dehydrogenase C-Reactive Protein Albumin Cholesterol LDL Cholesterol Direct Arterial Blood Glucose Arterial Blood Ionized Calcium 01/23/21 01/23/21 01/23/21 11:27 13:55 17:54 Hgb Hct MCV MCH RDW Lymph % (Auto) [place] % (Auto) Lymph # (Auto) Seg Neutrophils % Seg Neuts % (Manual) Lymphocytes % (Manual) Lymphocytes # (Manual) INR ABG pH 7.249 L POC ABG pCO2 83.0 H POC ABG pO2 82.8 L ABG Oxyhemoglobin ABG Potassium 4.8 H ABG Glucose 236 H Sodium Potassium Chloride Carbon Dioxide 33 H BUN 32 H Creatinine 1.6 H D Glucose 146 H POC Glucose 218 H Calcium 8.3 L Phosphorus Magnesium 3.00 H Lactate Dehydrogenase C-Reactive Protein Albumin 3.2 L Cholesterol LDL Cholesterol Direct Arterial Blood Glucose 236 H Arterial Blood Ionized Calcium 4.5 L 01/23/21 01/24/21 01/24/21 17:54 03:11 04:56 Hgb Hct MCV 100 H MCH RDW 15.4 H Lymph % (Auto) [place] % (Auto) Lymph # (Auto) Seg Neutrophils % Seg Neuts % (Manual) Lymphocytes % (Manual) Lymphocytes # (Manual) INR ABG pH POC ABG pCO2 POC ABG pO2 ABG Oxyhemoglobin ABG Potassium ABG Glucose Sodium Potassium Chloride Carbon Dioxide BUN Creatinine Glucose POC Glucose 131 H Calcium Phosphorus 2.00 L Magnesium Lactate Dehydrogenase C-Reactive Protein Albumin Cholesterol LDL Cholesterol Direct Arterial Blood Glucose Arterial Blood Ionized Calcium 01/24/21 01/24/21 01/24/21 04:56 05:00 05:47 Hgb Hct MCV MCH RDW Lymph % (Auto) [place] % (Auto) Lymph # (Auto) Seg Neutrophils % Seg Neuts % (Manual) Lymphocytes % (Manual) Lymphocytes # (Manual) INR ABG pH 7.473 H POC ABG pCO2 POC ABG pO2 53.9 L ABG Oxyhemoglobin 90.0 L ABG Potassium ABG Glucose 127 H Sodium 147 H D Potassium Chloride Carbon Dioxide 36 H BUN 33 H Creatinine 1.5 H Glucose 128 H POC Glucose 141 H Calcium 8.3 L Phosphorus Magnesium Lactate Dehydrogenase C-Reactive Protein Albumin Cholesterol LDL Cholesterol Direct Arterial Blood Glucose 127 H Arterial Blood Ionized Calcium 4.5 L 01/24/21 01/24/21 01/25/21 08:44 11:27 03:57 Hgb Hct MCV MCH RDW Lymph % (Auto) [place] % (Auto) Lymph # (Auto) Seg Neutrophils % Seg Neuts % (Manual) Lymphocytes % (Manual) Lymphocytes # (Manual) INR ABG pH 7.515 H POC ABG pCO2 POC ABG pO2 70.5 L ABG Oxyhemoglobin ABG Potassium ABG Glucose 150 H Sodium Potassium Chloride Carbon Dioxide BUN Creatinine Glucose POC Glucose 127 H Calcium Phosphorus 1.40 L D Magnesium 2.90 H Lactate Dehydrogenase C-Reactive Protein Albumin Cholesterol LDL Cholesterol Direct Arterial Blood Glucose 150 H Arterial Blood Ionized Calcium 4.4 L 01/25/21 01/25/21 01/25/21 04:35 04:35 05:07 Hgb Hct MCV 97 H MCH RDW 15.3 H Lymph % (Auto) [place] % (Auto) Lymph # (Auto) Seg Neutrophils % Seg Neuts % (Manual) Lymphocytes % (Manual) Lymphocytes # (Manual) INR ABG pH POC ABG pCO2 POC ABG pO2 ABG Oxyhemoglobin ABG Potassium ABG Glucose Sodium 147 H Potassium 3.5 L D Chloride Carbon Dioxide 37 H BUN 34 H Creatinine Glucose 127 H POC Glucose 117 H Calcium 8.1 L Phosphorus Magnesium Lactate Dehydrogenase C-Reactive Protein Albumin Cholesterol LDL Cholesterol Direct Arterial Blood Glucose Arterial Blood Ionized Calcium 01/25/21 01/25/2101/25/21 11:15 12:39 17:37 Hgb Hct MCV MCH RDW Lymph % (Auto) [place] % (Auto) Lymph # (Auto) Seg Neutrophils % Seg Neuts % (Manual) Lymphocytes % (Manual) Lymphocytes # (Manual) INR ABG pH POC ABG pCO2 POC ABG pO2 ABG Oxyhemoglobin ABG Potassium ABG Glucose Sodium Potassium Chloride Carbon Dioxide BUN Creatinine Glucose POC Glucose 147 H 143 H 142 H Calcium Phosphorus Magnesium Lactate Dehydrogenase C-Reactive Protein Albumin Cholesterol LDL Cholesterol Direct Arterial Blood Glucose Arterial Blood Ionized Calcium 01/25/21 01/26/21 01/26/21 23:08 03:44 04:30 Hgb Hct MCV MCH RDW Lymph % (Auto) [place] % (Auto) Lymph # (Auto) Seg Neutrophils % Seg Neuts % (Manual) Lymphocytes % (Manual) Lymphocytes # (Manual) INR ABG pH POC ABG pCO2 49.5 H POC ABG pO2 ABG Oxyhemoglobin ABG Potassium ABG Glucose 153 H Sodium 149 H Potassium Chloride Carbon Dioxide 39 H BUN 35 H Creatinine Glucose 141 H POC Glucose 139 H Calcium 8.3 L Phosphorus Magnesium Lactate Dehydrogenase C-Reactive Protein Albumin Cholesterol LDL Cholesterol Direct Arterial Blood Glucose 153 H Arterial Blood Ionized Calcium 4.5 L 01/26/21 01/26/21 05:31 11:35 Hgb Hct MCV MCH RDW Lymph % (Auto) [place] % (Auto) Lymph # (Auto) Seg Neutrophils % Seg Neuts % (Manual) Lymphocytes % (Manual) Lymphocytes # (Manual) INR ABG pH POC ABG pCO2 POC ABG pO2 ABG Oxyhemoglobin ABG Potassium ABG Glucose Sodium Potassium Chloride Carbon Dioxide BUN Creatinine Glucose POC Glucose 143 H 145 H Calcium Phosphorus Magnesium Lactate Dehydrogenase C-Reactive Protein Albumin Cholesterol LDL Cholesterol Direct Arterial Blood Glucose Arterial Blood Ionized Calcium Allied health notes reviewed: nursing
--- NOTE | 2021-01-26 18:49 | Cat Scan Report ---
CT HEAD WITHOUT CONTRAST INDICATION / CLINICAL INFORMATION: CVA. TECHNIQUE: All CT scans at this location are performed using CT dose reduction for ALARA by means of automated e xposure control. COMPARISON: Head CT 02/21/20202029. FINDINGS: HEMORRHAGE: No evidence of intracranial hemorrhage or extra-axial fluid collection. EXTRA-AXIAL SPACES: Cortical sulci, sylvian fissures and basilar cisterns have an unremarkable appear ance. VENTRICULAR SYSTEM: The third and lateral ventricles are of normal size and configuration. CEREBRAL PARENCHYMA: Again demonstrated is an area of decreased brain parenchymal attenuation in the right middle frontal gyrus consistent with remote right MCA infarction. A similar finding was present on head CT 02/20/2021. Suggestion of a similar on head CT dated 01/20/2021 but the January 20 examination is limited by patient motion artifact. MIDLINE SHIFT OR HERNIATION: There is no mass effect. CEREBELLUM / BRAINSTEM: Brainstem and cerebellum have an unremarkable appearance. MIDLINE STRUCTURES:No abnormalities of the pituitary gland or pineal region are identified. INTRACRANIAL VESSELS:No abnormalities are identified on this noncontrast head CT. ORBITS: visualized portions of the orbits have an unremarkable appearance. SOFT TISSUES of HEAD: No significant abnormality. CALVARIUM: Evaluation of bone windows reveals no abnormalities. PARANASAL SINUSES / MASTOID AIR CELLS: Inflammatory mucosal disease is present within multiple ethmoi d air cells bilaterally as well as within the sphenoid and maxillary sinuses bilaterally. These infla mmatory changes have progressed since 02/20/2021. Consider possible pansinusitis. Frontal sinuses appe ar clear. IMPRESSION: 1. Evidence of remote right MCA infarction. 2. No acute intracranial abnormality. No significant interval change. 3. Progression of inflammatory changes in the paranasal sinuses as described above. Signer Name: Raghav Jimenes MD Signed: 01/26/2021 6:44 PM Workstation Name: [id number]
[2021-01-27] MEDS: ACETAMINOPHEN 325 MG TAB PO PRN (04:21)
[2021-01-27] MEDS: HEPARIN 5,000 UNIT/1 ML VIAL SUB-Q SCH ×3 (05:44→21:08)
[2021-01-27] MEDS: INSULIN LISPRO 100 UNIT/ML SUB-Q SCH ×4 (05:44→17:55)
[2021-01-27 07:17] LABS: Hematocrit 34.4 % (35.5-45.6); Hemoglobin 11.1 gm/dl (11.8-15.2); Mean Corpuscular HGB Conc 32 % (32-34); Mean Corpuscular Volume 100 fl (84-94); Platelet Count 191 K/mm3 (140-440); Red Blood Count 3.45 M/mm3 (3.65-5.03); Red Cell Distribution Width 15.1 % (13.2-15.2)
[2021-01-27 07:28] LABS: BUN/Creatinine Ratio 33; Blood Urea Nitrogen 40 mg/dL (9-20); Calcium 8.7 mg/dL (8.4-10.2); Hemolysis Index 0
--- NOTE | 2021-01-27 09:37 | Progress Note ---
<ANJELICAMARÍA ELENA KulwinderGood - Last Filed: 01/27/21 11:06> Assessment and Plan Assessment and plan: This is a 65-year-old male with atrial fibrillation on Eliquis, hypertension, and diabetes who is admitted with suspected pneumonia, acute hypoxic respiratory failure, COVID-19 PUI, rule out CVA and with hypertensive urgency Acute hypoxic respiratory failure REmote Right MCA CVA Shock/hypotension Seizure Right middle and lower lobe pneumonia Acute metabolic encephalopathy Hypertensive urgency Type 2 diabetes Atrial fibrillation Hypernatremia Hyperchloremia -[facility], cardiology, neurology consulted, appreciate recommendations -01/20 CT head shows a well-defined area of decreased attenuation in the right parietal lobe, limited imagery secondary to artifact. MRI brain recommended for further work-up -01/20 CT chest shows possible mild inflammatory process in the right middle and right lower lobe -01/20 MRI brain pending -01/23 CT head shows no acute focal parenchymal lesion in the brain, no change to right middle frontal gyrus chronic ischemia -01/23 CXR shows right infrahilar opacity consistent with large areas of atelectasis of the right middle or lower lobe. 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 -01/23 EEG pending -01/26 CT head shows remote right MCA -Intubated 01/23 -VAP bundle, wean mechanical ventilation as tolerated -s/p IV antibiotics -Aspirin, Lipitor -Sedated with propofol -s/p vasopressor support with Levophed -Hold antihypertensive regimen and setting of needing vasopressor support, resume as tolerated -Neurochecks per protocol -Accu-Cheks every 6, SSI -Seizure precautions -Tube feedings -Trend BMP, CBC DVT/GI prophylaxis: Heparin subcu, PPIm SCDs to BLE while in bed Disposition: ICU The high probability of a clinically significant, sudden or life threatening deterioration of the [Respiratory, neuro, metabolic, infectious,] system(s) required my full and direct attention, intervention and personal management. The aggregate critical care time was [35] minutes. This time is in addition to time spent performing reported procedures but includes the following: [x] Data Review and interpretation [x] Patient assessment and monitoring of vital signs [x] Documentation [x] Medication orders and management History Interval history: This is a 65-year-old male with atrial fibrillation on Eliquis, hypertension, and diabetes who presents to the emergency on 01/20 with complaints of progressive generalized weakness, gait unsteadiness, cough and fever. Upon EMS arrival patient was febrile with a temperature of 102 and hypoxic with SPO2 in the 70s on room air. Work-up in the emergency department included a CT scan of his chest which showed possible mild inflammatory process in his right middle and lower lobe, CT head was admitted secondary to artifact but noted a low- density area in the right parietal lobe. Patient was admitted to the hospitalist service with suspected pneumonia, acute hypoxic respiratory failure, COVID-19 PUI, rule out CVA and with hypertensive urgency. Neurology was consulted. 01/22/2021; neuro work-up is in progress, follow PT OT eval. Neurology consult, continue antibiotics and supportive care 01/23/2021; patient went into acute respiratory failure requiring intubation and ventilatory support. Patient is transferred to ICU, pulmonary critical consulted, hypotensive started on Levophed. Pulmonary critical, cardiology and neurology following the patient. updated by Dr. Cho 01/24: Patient is awaiting further neuro imaging and is restrained the time my examination. Patient is not sedated and on assist control tidal volume 500, rate of 24, PEEP of 8 on FiO2 70%. Patient is severely agitated and is started on propofol drip per [facility]. He has hypophosphatemia today which was repleted. We will repeat BMP and phosphate level in the a.m. 01/25: Patient has hypokalemia today which was repleted today. Cr decreased to 1.2 from 1.5. Hypophosphatemia is resolved. Awaiting MRI brain. Sedated with propofol and on AC TV 500, R 20, PEEP 10, on FiO2 80%. Levophed was off at the time of my examination. Awaiting MRI . 01/26: The time my examination patient is sedated on propofol and this morning he has worsening hypernatremia and creatinine. The time examination patient is on assist control tidal volume 500, rate of 16, PEEP of 10 and 80% FiO2. Patient will follow commands with sedation vacation. Neurology ordered a repeat CT head bleed to assess if patient can be restarted on p.o. anticoagulation. We will increase the water flushes. 01/27: CTH obtained yesterday shows evidence of remote right MCA infarct. Patient remains sedated with Propofol and on MV AC TV 500, R 16, PEEP 10 and FiO2 80%. Bowel regimen started, will continue to trend CBC/BMP. Hospitalist Physical - Constitutional Vitals: Temp Pulse Resp BP Pulse Ox 98.4 F 71 16 106/69 96 01/27/21 08:00 01/27/21 08:50 01/27/21 08:50 01/27/21 08:50 01/27/21 08:50 General appearance: Present: no acute distress, well-nourished, obese, other (sedated on mechanical ventilation) - EENT Eyes: Present: PERRL ENT: clear oral mucosa - Neck Neck: Present: normal ROM - Respiratory Respiratory effort: normal Respiratory: bilateral: diminished - Cardiovascular Rhythm: regular Heart Sounds: Present: S1 & S2. Absent: systolic murmur, diastolic murmur - Extremities Extremities: no ischemia, pulses intact, pulses symmetrical, No edema, normal temperature, normal color Peripheral Pulses: within normal limits - Abdominal General gastrointestinal: soft, non-tender, non-distended, normal bowel sounds - Integumentary Integumentary: Present: warm, dry - Psychiatric Psychiatric: cooperative, agitated - Neurologic Neurologic: moves all extremities - Allied Health Allied health notes reviewed: nursing, RT HEART Score - HEART Score Troponin: Troponin T < 0.010 ng/mL (0.00-0.029) 01/20/21 19:26 Results - Labs CBC & Chem 7: 01/27/21 06:43 01/27/21 06:43 Labs: Laboratory Last Values WBC 7.3 K/mm3 (4.5-11.0) 01/27/21 06:43 RBC 3.45 M/mm3 (3.65-5.03) L 01/27/21 06:43 Hgb 11.1 gm/dl (11.8-15.2) L 01/27/21 06:43 Hct 34.4 % (35.5-45.6) L 01/27/21 06:43 MCV 100 fl (84-94) H 01/27/21 06:43 MCH 32 pg (28-32) 01/27/21 06:43 MCHC 32 % (32-34) 01/27/21 06:43 RDW 15.1 % (13.2-15.2) 01/27/21 06:43 Plt Count 191 K/mm3 (140-440) 01/27/21 06:43 Lymph % (Auto) 5.2 % (13.4-35.0) L 01/20/21 19:26 [place] % (Auto) 10.4 % (0.0-7.3) H 01/20/21 19:26 Eos % (Auto) 0.5 % (0.0-4.3) 01/20/21 19:26 Baso % (Auto) 1.0 % (0.0-1.8) 01/20/21 19:26 Lymph # (Auto) 0.3 K/mm3 (1.2-5.4) L 01/20/21 19:26 [place] # (Auto) 0.7 K/mm3 (0.0-0.8) 01/20/21 19:26 Eos # (Auto) 0.0 K/mm3 (0.0-0.4) 01/20/21 19:26 Baso # (Auto) 0.1 K/mm3 (0.0-0.1) 01/20/21 19:26 Add Manual Diff Complete 01/21/21 05:45 Total Counted 100 01/21/21 05:45 Seg Neutrophils % Snuff Box Finisher 01/21/21 05:45 Seg Neuts % (Manual) 96.0 % (40.0-70.0) H 01/21/21 05:45 Lymphocytes % (Manual) 3.0 % (13.4-35.0) L 01/21/21 05:45 Monocytes % (Manual) 1.0 % (0.0-7.3) 01/21/21 05:45 Nucleated RBC % Not Reportable 01/21/21 05:45 Seg Neutrophils # 5.3 K/mm3 (1.8-7.7) 01/20/21 19:26 Seg Neutrophils # Man 6.8 K/mm3 (1.8-7.7) 01/21/21 05:45 Band Neutrophils # 0.0 K/mm3 01/21/21 05:45 Lymphocytes # (Manual) 0.2 K/mm3 (1.2-5.4) L 01/21/21 05:45 Abs React Lymphs (Man) 0.0 K/mm3 01/21/21 05:45 Monocytes # (Manual) 0.1 K/mm3 (0.0-0.8) 01/21/21 05:45 Eosinophils # (Manual) 0.0 K/mm3 (0.0-0.4) 01/21/21 05:45 Basophils # (Manual) 0.0 K/mm3 (0.0-0.1) 01/21/21 05:45 Metamyelocytes # 0.0 K/mm3 01/21/21 05:45 Myelocytes # 0.0 K/mm3 01/21/21 05:45 Promyelocytes # 0.0 K/mm3 01/21/21 05:45 Blast Cells # 0.0 K/mm3 01/21/21 05:45 WBC Morphology Not Reportable 01/21/21 05:45 Hypersegmented Neuts Not Reportable 01/21/21 05:45 Hyposegmented Neuts Not Reportable 01/21/21 05:45 Hypogranular Neuts Not Reportable 01/21/21 05:45 Smudge Cells Not Reportable 01/21/21 05:45 Toxic Granulation Not Reportable 01/21/21 05:45 Toxic Vacuolation Not Reportable 01/21/21 05:45 Dohle Bodies Not Reportable 01/21/21 05:45 Pelger-Huet Anomaly Not Reportable 01/21/21 05:45 Masood Rods Not Reportable 01/21/21 05:45 Platelet Estimate Consistent w auto 01/21/21 05:45 Clumped Platelets Not Reportable 01/21/21 05:45 Plt Clumps, EDTA Not Reportable 01/21/21 05:45 Large Platelets Not Reportable 01/21/21 05:45 Giant Platelets Not Reportable 01/21/21 05:45 Platelet Satelliting Not Reportable 01/21/21 05:45 Plt Morphology Comment Not Reportable 01/21/21 05:45 RBC Morphology Normal 01/21/21 05:45 Dimorphic RBCs Not Reportable 01/21/21 05:45 Polychromasia Not Reportable 01/21/21 05:45 Hypochromasia Not Reportable 01/21/21 05:45 Poikilocytosis Not Reportable 01/21/21 05:45 Anisocytosis Not Reportable 01/21/21 05:45 Microcytosis Not Reportable 01/21/21 05:45 Macrocytosis Not Reportable 01/21/21 05:45 Spherocytes Not Reportable 01/21/21 05:45 Pappenheimer Bodies Not Reportable 01/21/21 05:45 Sickle Cells Not Reportable 01/21/21 05:45 Target Cells Not Reportable 01/21/21 05:45 Tear Drop Cells Not Reportable 01/21/21 05:45 Ovalocytes Not Reportable 01/21/21 05:45 Helmet Cells Not Reportable 01/21/21 05:45 [place] Bodies Not Reportable 01/21/21 05:45 [place] Rings Not Reportable 01/21/21 05:45 Ab Cells Not Reportable 01/21/21 05:45 Bite Cells Not Reportable 01/21/21 05:45 Crenated Cell Not Reportable 01/21/21 05:45 Elliptocytes Not Reportable 01/21/21 05:45 Acanthocytes (Spur) Not Reportable 01/21/21 05:45 Rouleaux Not Reportable 01/21/21 05:45 Hemoglobin C Crystals Not Reportable 01/21/21 05:45 Schistocytes Not Reportable 01/21/21 05:45 Malaria parasites Not Reportable 01/21/21 05:45 Roney Bodies Not Reportable 01/21/21 05:45 Hem Pathologist Commnt No 01/21/21 05:45 PT 14.5 Sec. (12.2-14.9) 01/21/21 15:13 INR 1.14 (0.87-1.13) H 01/21/21 15:13 APTT 30.5 Sec. (24.2-36.6) 01/21/21 15:13 D-Dimer 229.34 ng/mlDDU (0-234) 01/20/21 23:20 ABG pH 7.402 (7.320-7.450) 01/27/21 04:00 POC ABG pCO2 59.3 mmHg (32.0-48.0) H 01/27/21 04:00 POC ABG pO2 73.4 mmHg (83-108) L 01/27/21 04:00 POC ABG HCO3 36.1 01/27/21 04:00 ABG O2 Saturation 94.2 (0-100) 01/27/21 04:00 POC ABG Base Excess 9.4 01/27/21 04:00 ABG Hemoglobin 12.1 (12.0-17.5) 01/27/21 04:00 ABG Oxyhemoglobin 93.2 (94-98) L 01/27/21 04:00 ABG Methemoglobin 0.3 (0.0-1.5) 01/27/21 04:00 ABG Sodium 144.2 mmol/L (136.0-145.0) 01/27/21 04:00 ABG Potassium 3.6 mmol/L (3.40-4.50) 01/27/21 04:00 ABG Chloride 104.0 mmol/L (98-107) 01/27/21 04:00 ABG Glucose 178 mg/dL (65-95) H 01/27/21 04:00 Carboxyhemoglobin 0.8 (0.5-1.5) 01/27/21 04:00 FiO2 % 80.0 01/27/21 04:00 Sodium 148 mmol/L (137-145) H 01/27/21 06:43 Potassium 3.6 mmol/L (3.6-5.0) 01/27/21 06:43 Chloride 103.1 mmol/L (98-107) 01/27/21 06:43 Carbon Dioxide 40 mmol/L (22-30) H 01/27/21 06:43 Anion Gap 9 mmol/L 01/27/21 06:43 BUN 40 mg/dL (9-20) H 01/27/21 06:43 Creatinine 1.2 mg/dL (0.8-1.3) 01/27/21 06:43 Creatinine 1.3 mg/dL (0.8-1.3) 01/27/21 06:43 Estimated GFR > 60 ml/min 01/27/21 06:43 Estimated GFR > 60 ml/min 01/27/21 06:43 BUN/Creatinine Ratio 33 % 01/27/21 06:43 Glucose 166 mg/dL (75-100) H 01/27/21 06:43 POC Glucose 152 mg/dL (70-105) H 01/27/21 05:24 Lactic Acid 1.50 mmol/L (0.7-2.0) 01/20/21 19:26 Calcium 8.7 mg/dL (8.4-10.2) 01/27/21 06:43 Phosphorus 2.50 mg/dL (2.5-4.5) D 01/25/21 09:40 Magnesium 2.90 mg/dL (1.7-2.3) H 01/24/21 08:44 Ferritin 128.4 ng/mL (30.0-300.0) 01/20/21 23:20 Total Bilirubin 0.80 mg/dL (0.1-1.2) 01/23/21 17:54 AST 35 units/L (5-40) 01/23/21 17:54 ALT 31 units/L (7-56) 01/23/21 17:54 Alkaline Phosphatase 78 units/L (35-129) 01/23/21 17:54 Ammonia 58.0 umol/L (25-60) 01/22/21 14:19 Lactate Dehydrogenase 384 units/L (91-180) H 01/20/21 23:20 Troponin T < 0.010 ng/mL (0.00-0.029) 01/20/21 19:26 C-Reactive Protein 2.70 mg/dL (0.00-1.30) H 01/20/21 23:20 Total Protein 6.4 g/dL (6.3-8.2) 01/23/21 17:54 Albumin 3.2 g/dL (3.9-5) L 01/23/21 17:54 Albumin/Globulin Ratio 1.0 % 01/23/21 17:54 Triglycerides 49 mg/dL (2-149) 01/21/21 05:45 Cholesterol 210 mg/dL (50-199) H 01/21/21 05:45 LDL Cholesterol Direct 155 mg/dL (50-130) H 01/21/21 05:45 HDL Cholesterol 57 mg/dL (40-59) 01/21/21 05:45 Cholesterol/HDL Ratio 3.68 % 01/21/21 05:45 Procalcitonin 0.13 ng/mL (<0.15) 01/20/21 23:20 Arterial Blood Glucose 178 mg/dL (65-95) H 01/27/21 04:00 Arterial Blood Ionized Calcium 4.4 mg/dL (4.6-5.3) L 01/27/21 04:00 Urine Color Yellow (Yellow) 01/20/21 Unknown Urine Turbidity Clear (Clear) 01/20/21 Unknown Urine pH 6.0 (5.0-7.0) 01/20/21 Unknown Ur Specific [place] 1.022 (1.003-1.030) 01/20/21 Unknown Urine Protein >500 mg/dL (Negative) 01/20/21 Unknown Urine Glucose (UA) Neg mg/dL (Negative) 01/20/21 Unknown Urine Ketones Neg mg/dL (Negative) 01/20/21 Unknown Urine Blood Neg (Negative) 01/20/21 Unknown Urine Nitrite Neg (Negative) 01/20/21 Unknown Urine Bilirubin Neg (Negative) 01/20/21 Unknown Urine Urobilinogen < 2.0 mg/dL (<2.0) 01/20/21 Unknown Ur Leukocyte Esterase Neg (Negative) 01/20/21 Unknown Urine WBC (Auto) 1.0 /HPF (0.0-6.0) 01/20/21 Unknown Urine RBC (Auto) 4.0 /HPF (0.0-6.0) 01/20/21 Unknown U Epithel Cells (Auto) < 1.0 /HPF (0-13.0) 01/20/21 Unknown Coronavirus (PCR) Negative (Negative) 01/21/21 Unknown Wilde/IV: Voiding Method Condom Catheter Active Medications - Current Medications Current Medications: Generic Name Dose Route Start Last Admin Trade Name Freq PRN Reason Stop Dose Admin Acetaminophen 650 mg 01/20/21 23:38 01/27/21 04:21 Acetaminophen 325 Mg Tab PO 650 mg Q4H PRN Administration Pain MILD(1-3)/Fever >100.5/[place]IB[place] Acetaminophen 650 mg 01/23/21 08:23 01/24/21 05:34 Acetaminophen 650 Mg Rect Supp [place] 650 mg Q4H PRN Administration Pain, Mild (1-3) IF NPO Albuterol 2.5 mg 01/20/21 23:38 Albuterol 2.5 Mg/3 Ml Nebu IH Q4HRT PRN Shortness Of Breath Lipase/Protease/Amylase 1 each 01/24/21 08:04 Lipase 10,500/Protease 25,000/Amylase 43,750 (Units) Dr Cap FEEDTUBE PRN PRN For Clogged Feeding Tube Aspirin 325 mg 01/21/21 10:00 01/26/21 09:15 Aspirin 325 Mg Tab PO 325 mg QDAY NGUYEN Administration Atorvastatin Calcium 80 mg 01/21/21 10:00 01/26/21 09:17 Atorvastatin 40 Mg Tab PO 80 mg DAILY NGUYEN Administration Dextrose 0 ml 01/20/21 23:38 Dextrose 50% In Water (25gm) 50 Ml Syringe IV Q30MIN PRN Hypoglycemia Protocol Famotidine 20 mg 01/24/21 10:00 01/26/21 21:03 Famotidine 20 Mg/2 Ml Inj IV 20 mg BID NGUYEN Administration Fentanyl 50 mcg 01/23/21 16:00 01/24/21 10:57 Fentanyl 100 Mcg/2 Ml Inj IV 50 mcg Q2H PRN Administration Pain , Severe (7-10) Furosemide 40 mg 01/24/21 10:00 01/26/21 09:15 Furosemide 40 Mg/4 Ml Inj IV 40 mg QDAY NGUYEN Administration Heparin Sodium (Porcine) 5,000 unit 01/23/21 22:00 01/27/21 05:44 Heparin 5,000 Unit/1 Ml Vial SUB-Q 5,000 unit Q8HR NGUYEN Administration Hydralazine HCl 10 mg 01/20/21 23:46 Hydralazine 20 Mg/1 Ml Inj IV Q6H PRN htn Norepinephrine 4 mg in 250 mls @ 7.5 mls/hr 01/23/21 13:00 01/25/21 06:25 Levophed Drip 4 Mg/Ns 250 Ml IV 0 mcg/min TITR NGUYEN 0 mls/hr Titration Protocol 2 MCG/MIN Propofol 1,000 mg in 100 mls @ 3.468 mls/hr 01/24/21 11:00 01/27/21 08:25 Diprivan 10 Mg/Ml IV 10 mcg/kg/min TITR NGUYEN 6.936 mls/hr Titration Protocol 5 MCG/KG/MIN Insulin Human Lispro 0 unit 01/21/21 00:00 01/27/21 05:44 Insulin Lispro 100 Unit/Ml SUB-Q 2 unit Q6HR NGUYEN Administration Protocol Lorazepam 2 mg 01/23/21 12:22 01/24/21 04:20 Lorazepam 2 Mg/Ml Vial IV 2 mg Q4H PRN Administration Agitation Ondansetron HCl 4 mg 01/20/21 23:38 Ondansetron 4 Mg/2 Ml Inj IV Q8H PRN Nausea And Vomiting Simple Syrup 15 ml 01/24/21 08:04 Simple Syrup 15 Ml FEEDTUBE PRN PRN Hypoglycemia Simple Syrup 30 ml 01/24/21 08:04 Simple Syrup 15 Ml FEEDTUBE PRN PRN Hypoglycemia Sodium Bicarbonate 325 mg 01/24/21 08:04 Sodium Bicarbonate 325 Mg Tab FEEDTUBE PRN PRN For Clogged Feeding Tube Sodium Chloride 10 ml 01/21/21 10:00 01/26/21 21:11 Sodium Chloride 0.9% 10 Ml Flush Syringe IV 10 ml BID NGUYEN Administration Sodium Chloride 10 ml 01/20/21 23:38 Sodium Chloride 0.9% 10 Ml Flush Syringe IV PRN PRN LINE FLUSH Nutrition/Malnutrition Assess - Dietary Evaluation Nutrition/Malnutrition Findings: Nutrition Notes Start: 01/21/21 11:45 Freq: Status: Active Protocol: Document 01/24/21 07:54 (Rec: 01/24/21 08:03 [id number]) Nutrition Notes Need for Assessment generated from: MD Order Initial or Follow up Assessment Current Diagnosis Diabetes,Hypertension, Respiratory Failure Other Pertinent Diagnosis encephalopathy, pneu Current Diet NPO Labs/Tests Na 147 BUN 33 Cr 1.5 Pertinent Medications Levophed Height 5 ft 9 in Weight 115.6 kg [place] Body Weight (kg) 72.72 BMI 37.6 Weight Status Morbidly Obese Subjective/Other Information MD order for TF. Pt now intubated. Burn Absent Trauma Absent Current % PO Negligible Minimum of two criteria No Fluid Accumulation Mild (non-severe) #1 Nutrition Diagnosis Inadequate oral intake Etiology ARF As Evidenced by Signs and Symptoms pt on vent and unable to consume PO Is patient on ventilator? Yes Is Patient Ambulatory and/or Out of Bed No REE-([facility]-confined to bed) 2328.408 Kcal/Kg value to use for calculation 16 Approximate Energy Requirements Using 1850 kcal/Kg Calculation Used for Recommendations Kcal/kg Additional Notes Protein: (>2.5g/kg IBW) >182g Fluid: 1 ml/kcal or per MD Nutrition Intervention Change Diet Order: Start TF Nutrition Support: Vital AF 1.2 at 65 ml/hr Flush 200 ml q4h for hypernatermia. Once resolved, flush 100 ml q4h. Kcal 1,872 Protein (gm) 117 Fluid (mL) 1,265 Goal #1 Meet at least 75% of kcal needs and 60% of protein needs via TF Anticipated Discharge Needs: Unable to determine at this time Follow-Up By: 01/28/21 Additional Comments FU for TF start and tolerance <JUAN FERRER O - Last Filed: 01/27/21 14:51> History Interval history: I saw and evaluated the patient and discussed with Nurse Practitioner. I agree with the findings and the plan of care as documented in the Nurse Practitioner's note. Hospitalist Physical - Constitutional Vitals: Temp Pulse Resp BP Pulse Ox 98.8 F 73 17 132/76 97 01/27/21 12:00 01/27/21 14:00 01/27/21 14:00 01/27/21 14:00 01/27/21 14:00 HEART Score - HEART Score Troponin: Troponin T < 0.010 ng/mL (0.00-0.029) 01/20/21 19:26 Results - Labs CBC & Chem 7: 01/27/21 06:43 01/27/21 06:43 Labs: Laboratory Last Values WBC 7.3 K/mm3 (4.5-11.0) 01/27/21 06:43 RBC 3.45 M/mm3 (3.65-5.03) L 01/27/21 06:43 Hgb 11.1 gm/dl (11.8-15.2) L 01/27/21 06:43 Hct 34.4 % (35.5-45.6) L 01/27/21 06:43 MCV 100 fl (84-94) H 01/27/21 06:43 MCH 32 pg (28-32) 01/27/21 06:43 MCHC 32 % (32-34) 01/27/21 06:43 RDW 15.1 % (13.2-15.2) 01/27/21 06:43 Plt Count 191 K/mm3 (140-440) 01/27/21 06:43 Lymph % (Auto) 5.2 % (13.4-35.0) L 01/20/21 19:26 [place] % (Auto) 10.4 % (0.0-7.3) H 01/20/21 19:26 Eos % (Auto) 0.5 % (0.0-4.3) 01/20/21 19: Baso % (Auto) 1.0 % (0.0-1.8) 01/20/21 19: Lymph # (Auto) 0.3 K/mm3 (1.2-5.4) L 01/20/21 19:26 [place] # (Auto) 0.7 K/mm3 (0.0-0.8) 01/20/21 19: Eos # (Auto) 0.0 K/mm3 (0.0-0.4) 01/20/21 19: Baso # (Auto) 0.1 K/mm3 (0.0-0.1) 01/20/21 19: Add Manual Diff Complete 01/21/21 05:45 Total Counted 100 01/21/21 05:45 Seg Neutrophils % Snuff Box Finisher 01/21/21 05:45 Seg Neuts % (Manual) 96.0 % (40.0-70.0) H 01/21/21 05:45 Lymphocytes % (Manual) 3.0 % (13.4-35.0) L 01/21/21 05:45 Monocytes % (Manual) 1.0 % (0.0-7.3) 01/21/21 05:45 Nucleated RBC % Not Reportable 01/21/21 05:45 Seg Neutrophils # 5.3 K/mm3 (1.8-7.7) 01/20/21 19:26 Seg Neutrophils # Man 6.8 K/mm3 (1.8-7.7) 01/21/21 05:45 Band Neutrophils # 0.0 K/mm3 01/21/21 05:45 Lymphocytes # (Manual) 0.2 K/mm3 (1.2-5.4) L 01/21/21 05:45 Abs React Lymphs (Man) 0.0 K/mm3 01/21/21 05:45 Monocytes # (Manual) 0.1 K/mm3 (0.0-0.8) 01/21/21 05:45 Eosinophils # (Manual) 0.0 K/mm3 (0.0-0.4) 01/21/21 05:45 Basophils # (Manual) 0.0 K/mm3 (0.0-0.1) 01/21/21 05:45 Metamyelocytes # 0.0 K/mm3 01/21/21 05:45 Myelocytes # 0.0 K/mm3 01/21/21 05:45 Promyelocytes # 0.0 K/mm3 01/21/21 05:45 Blast Cells # 0.0 K/mm3 01/21/21 05:45 WBC Morphology Not Reportable 01/21/21 05:45 Hypersegmented Neuts Not Reportable 01/21/21 05:45 Hyposegmented Neuts Not Reportable 01/21/21 05:45 Hypogranular Neuts Not Reportable 01/21/21 05:45 Smudge Cells Not Reportable 01/21/21 05:45 Toxic Granulation Not Reportable 01/21/21 05:45 Toxic Vacuolation Not Reportable 01/21/21 05:45 Dohle Bodies Not Reportable 01/21/21 05:45 Pelger-Huet Anomaly Not Reportable 01/21/21 05:45 Masood Rods Not Reportable 01/21/21 05:45 Platelet Estimate Consistent w auto 01/21/21 05:45 Clumped Platelets Not Reportable 01/21/21 05:45 Plt Clumps, EDTA Not Reportable 01/21/21 05:45 Large Platelets Not Reportable 01/21/21 05:45 Giant Platelets Not Reportable 01/21/21 05:45 Platelet Satelliting Not Reportable 01/21/21 05:45 Plt Morphology Comment Not Reportable 01/21/21 05:45 RBC Morphology Normal 01/21/21 05:45 Dimorphic RBCs Not Reportable 01/21/21 05:45 Polychromasia Not Reportable 01/21/21 05:45 Hypochromasia Not Reportable 01/21/21 05:45 Poikilocytosis Not Reportable 01/21/21 05:45 Anisocytosis Not Reportable 01/21/21 05:45 Microcytosis Not Reportable 01/21/21 05:45 Macrocytosis Not Reportable 01/21/21 05:45 Spherocytes Not Reportable 01/21/21 05:45 Pappenheimer Bodies Not Reportable 01/21/21 05:45 Sickle Cells Not Reportable 01/21/21 05:45 Target Cells Not Reportable 01/21/21 05:45 Tear Drop Cells Not Reportable 01/21/21 05:45 Ovalocytes Not Reportable 01/21/21 05:45 Helmet Cells Not Reportable 01/21/21 05:45 [place] Bodies Not Reportable 01/21/21 05:45 [place] Rings Not Reportable 01/21/21 05:45 Ab Cells Not Reportable 01/21/21 05:45 Bite Cells Not Reportable 01/21/21 05:45 Crenated Cell Not Reportable 01/21/21 05:45 Elliptocytes Not Reportable 01/21/21 05:45 Acanthocytes (Spur) Not Reportable 01/21/21 05:45 Rouleaux Not Reportable 01/21/21 05:45 Hemoglobin C Crystals Not Reportable 01/21/21 05:45 Schistocytes Not Reportable 01/21/21 05:45 Malaria parasites Not Reportable 01/21/21 05:45 Roney Bodies Not Reportable 01/21/21 05:45 Hem Pathologist Commnt No 01/21/21 05:45 PT 14.5 Sec. (12.2-14.9) 01/21/21 15:13 INR 1.14 (0.87-1.13) H 01/21/21 15:13 APTT 30.5 Sec. (24.2-36.6) 01/21/21 15:13 D-Dimer 229.34 ng/mlDDU (0-234) 01/20/21 23:20 ABG pH 7.402 (7.320-7.450) 01/27/21 04:00 POC ABG pCO2 59.3 mmHg (32.0-48.0) H 01/27/21 04:00 POC ABG pO2 73.4 mmHg (83-108) L 01/27/21 04:00 POC ABG HCO3 36.1 01/27/21 04:00 ABG O2 Saturation 94.2 (0-100) 01/27/21 04:00 POC ABG Base Excess 9.4 01/27/21 04:00 ABG Hemoglobin 12.1 (12.0-17.5) 01/27/21 04:00 ABG Oxyhemoglobin 93.2 (94-98) L 01/27/21 04:00 ABG Methemoglobin 0.3 (0.0-1.5) 01/27/21 04:00 ABG Sodium 144.2 mmol/L (136.0-145.0) 01/27/21 04:00 ABG Potassium 3.6 mmol/L (3.40-4.50) 01/27/21 04:00 ABG Chloride 104.0 mmol/L (98-107) 01/27/21 04:00 ABG Glucose 178 mg/dL (65-95) H 01/27/21 04:00 Carboxyhemoglobin 0.8 (0.5-1.5) 01/27/21 04:00 FiO2 % 80.0 01/27/21 04:00 Sodium 148 mmol/L (137-145) H 01/27/21 06:43 Potassium 3.6 mmol/L (3.6-5.0) 01/27/21 06:43 Chloride 103.1 mmol/L (98-107) 01/27/21 06:43 Carbon Dioxide 40 mmol/L (22-30) H 01/27/21 06:43 Anion Gap 9 mmol/L 01/27/21 06:43 BUN 40 mg/dL (9-20) H 01/27/21 06:43 Creatinine 1.2 mg/dL (0.8-1.3) 01/27/21 06:43 Creatinine 1.3 mg/dL (0.8-1.3) 01/27/21 06:43 Estimated GFR > 60 ml/min 01/27/21 06:43 Estimated GFR > 60 ml/min 01/27/21 06:43 BUN/Creatinine Ratio 33 % 01/27/21 06:43 Glucose 166 mg/dL (75-100) H 01/27/21 06:43 POC Glucose 146 mg/dL (70-105) H 01/27/21 11:35 Lactic Acid 1.50 mmol/L (0.7-2.0) 01/20/21 19:26 Calcium 8.7 mg/dL (8.4-10.2) 01/27/21 06:43 Phosphorus 2.50 mg/dL (2.5-4.5) D 01/25/21 09:40 Magnesium 2.90 mg/dL (1.7-2.3) H 01/24/21 08:44 Ferritin 128.4 ng/mL (30.0-300.0) 01/20/21 23:20 Total Bilirubin 0.80 mg/dL (0.1-1.2) 01/23/21 17:54 AST 35 units/L (5-40) 01/23/21 17:54 ALT 31 units/L (7-56) 01/23/21 17:54 Alkaline Phosphatase 78 units/L (35-129) 01/23/21 17:54 Ammonia 58.0 umol/L (25-60) 01/22/21 14:19 Lactate Dehydrogenase 384 units/L (91-180) H 01/20/21 23:20 Troponin T < 0.010 ng/mL (0.00-0.029) 01/20/21 19:26 C-Reactive Protein 2.70 mg/dL (0.00-1.30) H 01/20/21 23:20 Total Protein 6.4 g/dL (6.3-8.2) 01/23/21 17:54 Albumin 3.2 g/dL (3.9-5) L 01/23/21 17:54 Albumin/Globulin Ratio 1.0 % 01/23/21 17:54 Triglycerides 49 mg/dL (2-149) 01/21/21 05:45 Cholesterol 210 mg/dL (50-199) H 01/21/21 05:45 LDL Cholesterol Direct 155 mg/dL (50-130) H 01/21/21 05:45 HDL Cholesterol 57 mg/dL (40-59) 01/21/21 05:45 Cholesterol/HDL Ratio 3.68 % 01/21/21 05:45 Procalcitonin 0.13 ng/mL (<0.15) 01/20/21 23:20 Arterial Blood Glucose 178 mg/dL (65-95) H 01/27/21 04:00 Arterial Blood Ionized Calcium 4.4 mg/dL (4.6-5.3) L 01/27/21 04:00 Urine Color Yellow (Yellow) 01/20/21 Unknown Urine Turbidity Clear (Clear) 01/20/21 Unknown Urine pH 6.0 (5.0-7.0) 01/20/21 Unknown Ur Specific [place] 1.022 (1.003-1.030) 01/20/21 Unknown Urine Protein >500 mg/dL (Negative) 01/20/21 Unknown Urine Glucose (UA) Neg mg/dL (Negative) 01/20/21 Unknown Urine Ketones Neg mg/dL (Negative) 01/20/21 Unknown Urine Blood Neg (Negative) 01/20/21 Unknown Urine Nitrite Neg (Negative) 01/20/21 Unknown Urine Bilirubin Neg (Negative) 01/20/21 Unknown Urine Urobilinogen < 2.0 mg/dL (<2.0) 01/20/21 Unknown Ur Leukocyte Esterase Neg (Negative) 01/20/21 Unknown Urine WBC (Auto) 1.0 /HPF (0.0-6.0) 01/20/21 Unknown Urine RBC (Auto) 4.0 /HPF (0.0-6.0) 01/20/21 Unknown U Epithel Cells (Auto) < 1.0 /HPF (0-13.0) 01/20/21 Unknown Coronavirus (PCR) Negative (Negative) 01/21/21 Unknown Microbiology: Microbiology 01/23/21 13:44 Tracheal Aspirate Sputum Culture - Final Berta Albicans Wilde/IV: Voiding Method Condom Catheter Active Medications - Current Medications Current Medications: Generic Name Dose Route Start Last Admin Trade Name Freq PRN Reason Stop Dose Admin Acetaminophen 650 mg 01/20/21 23:38 01/27/21 04:21 Acetaminophen 325 Mg Tab PO 650 mg Q4H PRN Administration Pain MILD(1-3)/Fever >100.5/[place] Acetaminophen 650 mg 01/23/21 08:23 01/24/21 05:34 Acetaminophen 650 Mg Rect Supp [place] 650 mg Q4H PRN Administration Pain, Mild (1-3) IF NPO Albuterol 2.5 mg 01/20/21 23:38 Albuterol 2.5 Mg/3 Ml Nebu IH Q4HRT PRN Shortness Of Breath Lipase/Protease/Amylase 1 each 01/24/21 08:04 Lipase 10,500/Protease 25,000/Amylase 43,750 (Units) Dr Anguiano FEEDTUBE PRN PRN For Clogged Feeding Tube Aspirin 325 mg 01/21/21 10:00 01/27/21 10:10 Aspirin 325 Mg Tab PO 325 mg QDAY NGUYEN Administration Atorvastatin Calcium 80 mg 01/21/21 10:00 01/27/21 10:10 Atorvastatin 40 Mg Tab PO 80 mg DAILY NGUYEN Administration Dextrose 0 ml 01/20/21 23:38 Dextrose 50% In Water (25gm) 50 Ml Syringe IV Q30MIN PRN Hypoglycemia Protocol Docusate Sodium 100 mg 01/27/21 10:00 01/27/21 10:11 Docusate Sodium 100 Mg Cap PO 100 mg BID NGUYEN Administration Famotidine 20 mg 01/24/21 10:00 01/27/21 10:11 Famotidine 20 Mg/2 Ml Inj IV 20 mg BID NGUYEN Administration Fentanyl 50 mcg 01/23/21 16:00 01/24/21 10:57 Fentanyl 100 Mcg/2 Ml Inj IV 50 mcg Q2H PRN Administration Pain , Severe (7-10) Heparin Sodium (Porcine) 5,000 unit 01/23/21 22:00 01/27/21 05:44 Heparin 5,000 Unit/1 Ml Vial SUB-Q 5,000 unit Q8HR NGUYEN Administration Hydralazine HCl 10 mg 01/20/21 23:46 Hydralazine 20 Mg/1 Ml Inj IV Q6H PRN htn Norepinephrine 4 mg in 250 mls @ 7.5 mls/hr 01/23/21 13:00 01/25/21 06:25 Levophed Drip 4 Mg/Ns 250 Ml IV 0 mcg/min TITR NGUYEN 0 mls/hr Titration Protocol 2 MCG/MIN Propofol 1,000 mg in 100 mls @ 3.468 mls/hr 01/24/21 11:00 01/27/21 12:11 Diprivan 10 Mg/Ml IV 20 mcg/kg/min TITR NGUYEN 13.872 mls/hr Administration Protocol 5 MCG/KG/MIN Insulin Human Lispro 0 unit 01/21/21 00:00 01/27/21 11:41 Insulin Lispro 100 Unit/Ml SUB-Q Not Given Q6HR [facility] Protocol Lorazepam 2 mg 01/23/21 12:22 01/24/21 04:20 Lorazepam 2 Mg/Ml Vial IV 2 mg Q4H PRN Administration Agitation Ondansetron HCl 4 mg 01/20/21 23:38 Ondansetron 4 Mg/2 Ml Inj IV Q8H PRN Nausea And Vomiting Senna 8.6 mg 01/27/21 09:59 Sennosides 8.6 Mg Tab PO Q12H PRN Laxative Effect Simple Syrup 15 ml 01/24/21 08:04 Simple Syrup 15 Ml FEEDTUBE PRN PRN Hypoglycemia Simple Syrup 30 ml 01/24/21 08:04 Simple Syrup 15 Ml FEEDTUBE PRN PRN Hypoglycemia Sodium Bicarbonate 325 mg 01/24/21 08:04 Sodium Bicarbonate 325 Mg Tab FEEDTUBE PRN PRN For Clogged Feeding Tube Sodium Chloride 10 ml 01/21/21 10:00 01/27/21 10:11 Sodium Chloride 0.9% 10 Ml Flush Syringe IV 10 ml BID NGUYEN Administration Sodium Chloride 10 ml 01/20/21 23:38 Sodium Chloride 0.9% 10 Ml Flush Syringe IV PRN PRN LINE FLUSH Nutrition/Malnutrition Assess - Dietary Evaluation Nutrition/Malnutrition Findings: Nutrition Notes Start: 01/21/21 11:45 Freq: Status: Active Protocol: Document 01/24/21 07:54 (Rec: 01/24/21 08:03 [id number]) Nutrition Notes Need for Assessment generated from: MD Order Initial or Follow up Assessment Current Diagnosis Diabetes,Hypertension, Respiratory Failure Other Pertinent Diagnosis encephalopathy, pneu Current Diet NPO Labs/Tests Na 147 BUN 33 Cr 1.5 Pertinent Medications Levophed Height 5 ft 9 in Weight 115.6 kg [place] Body Weight (kg) 72.72 BMI 37.6 Weight Status Morbidly Obese Subjective/Other Information MD order for TF. Pt now intubated. Burn Absent Trauma Absent Current % PO Negligible Minimum of two criteria No Fluid Accumulation Mild (non-severe) #1 Nutrition Diagnosis Inadequate oral intake Etiology ARF As Evidenced by Signs and Symptoms pt on vent and unable to consume PO Is patient on ventilator? Yes Is Patient Ambulatory and/or Out of Bed No REE-([facility]-confined to bed) 2328.408 Kcal/Kg value to use for calculation 16 Approximate Energy Requirements Using 1850 kcal/Kg Calculation Used for Recommendations Kcal/kg Additional Notes Protein: (>2.5g/kg IBW) >182g Fluid: 1 ml/kcal or per MD Nutrition Intervention Change Diet Order: Start TF Nutrition Support: Vital AF 1.2 at 65 ml/hr Flush 200 ml q4h for hypernatermia. Once resolved, flush 100 ml q4h. Kcal 1,872 Protein (gm) 117 Fluid (mL) 1,265 Goal #1 Meet at least 75% of kcal needs and 60% of protein needs via TF Anticipated Discharge Needs: Unable to determine at this time Follow-Up By: 01/28/21 Additional Comments FU for TF start and tolerance
--- NOTE | 2021-01-27 10:03 | Progress Note ---
Assessment and Plan 65 y/o male with acute respiratory failure secondary to altered mental state from possible stroke vs worsening stroke with hypotension requiring pressors. 01/27/21: Stop Lasix therapy. Follow up any new neurology recs based on new head CT findings. Concern for possible bleeding given rise in BUN and drop in H/H, although patient could have been hemoconcentrated. Will start Bowel Regimen and be mindful of color of stool. No obvious bleeding has been witnessed. Continue to wean sedation for rass of 0 if possible. Wean Vent for sats >88%. I dropped FiO2 down to 75 this morning. Guarded prognosis. 01/26/21: Continue supportive measures. Agree with repeat Head CT. Sedation for patient safety but needs daily vacations. Guarded prognosis. 1. Place central line 2. Place art line 3. Vasopressor therapy 4. No sedation as of right now 5. Consider repeat CT head 6. Guarded prognosis. CCT 31 minutes. Subjective Date of service: 01/27/21 Principal diagnosis: CVA Interval history: No acute events. Now on Diprovan at 10. Head CT now showing remote right MCA infarct. This was not seen nor mentioned on Head CT from 01/23/21: pH is normal but CO2 elevated at 59. Bicarb 40 and BUN 40. HgB is lower than on admission but no evidence of active bleeding. Objective Vital Signs - 12hr 01/26/21 01/26/21 01/26/21 22:00 22:10 22:20 Temperature 99.5 F Pulse Rate 60 64 66 Pulse Rate [ From Monitor] Respiratory 16 16 16 Rate Blood Pressure 96/59 96/59 96/63 O2 Sat by Pulse 98 98 98 Oximetry 01/26/21 01/26/21 01/26/21 22:30 22:40 22:50 Temperature Pulse Rate 62 62 71 Pulse Rate [ From Monitor] Respiratory 16 16 16 Rate Blood Pressure 89/64 89/64 89/64 O2 Sat by Pulse 97 97 98 Oximetry 01/26/21 01/26/21 01/26/21 23:00 23:08 23:10 Temperature Pulse Rate 70 71 77 Pulse Rate [ From Monitor] Respiratory 16 16 16 Rate Blood Pressure 104/76 104/76 104/76 O2 Sat by Pulse 97 98 97 Oximetry 01/26/21 01/26/21 01/26/21 23:20 23:30 23:40 Temperature Pulse Rate 66 64 65 Pulse Rate [ From Monitor] Respiratory 16 16 16 Rate Blood Pressure 104/76 101/65 101/65 O2 Sat by Pulse 97 96 97 Oximetry 01/26/21 01/26/21 01/27/21 23:50 23:59 00:00 Temperature 100.4 F H 99.5 F Pulse Rate 65 72 Pulse Rate [ 81 From Monitor] Respiratory 16 14 Rate Blood Pressure 101/65 107/72 O2 Sat by Pulse 97 97 Oximetry 01/27/21 01/27/21 01/27/21 00:09 00:10 00:20 Temperature Pulse Rate 76 71 75 Pulse Rate [ From Monitor] Respiratory 16 16 Rate Blood Pressure 104/76 107/72 107/72 O2 Sat by Pulse 97 97 97 Oximetry 01/27/21 01/27/21 01/27/21 00:30 00:40 00:50 Temperature Pulse Rate 64 62 67 Pulse Rate [ From Monitor] Respiratory 16 16 16 Rate Blood Pressure 107/64 107/64 107/64 O2 Sat by Pulse 96 96 96 Oximetry 01/27/21 01/27/21 01/27/21 01:00 01:10 01:20 Temperature Pulse Rate 69 64 67 Pulse Rate [ From Monitor] Respiratory 16 14 16 Rate Blood Pressure 102/63 102/63 102/63 O2 Sat by Pulse 96 97 97 Oximetry 01/27/21 01/27/21 01/27/21 01:30 01:40 01:50 Temperature Pulse Rate 68 64 69 Pulse Rate [ From Monitor] Respiratory 16 16 7 L Rate Blood Pressure 99/67 102/63 102/63 O2 Sat by Pulse 97 96 97 Oximetry 01/27/21 01/27/21 01/27/21 02:00 02:10 02:20 Temperature Pulse Rate 67 77 75 Pulse Rate [ From Monitor] Respiratory 12 19 18 Rate Blood Pressure 116/71 99/67 99/67 O2 Sat by Pulse 96 96 96 Oximetry 01/27/21 01/27/21 01/27/21 02:30 02:40 02:50 Temperature Pulse Rate 68 74 76 Pulse Rate [ From Monitor] Respiratory 16 17 17 Rate Blood Pressure 99/67 116/71 116/71 O2 Sat by Pulse 96 97 96 Oximetry 01/27/21 01/27/21 01/27/21 03:00 03:10 03:20 Temperature Pulse Rate 74 84 74 Pulse Rate [ From Monitor] Respiratory 13 16 13 Rate Blood Pressure 113/73 113/73 113/73 O2 Sat by Pulse 96 96 96 Oximetry 01/27/21 01/27/21 01/27/21 03:24 03:30 03:40 Temperature 99.2 F Pulse Rate 76 68 Pulse Rate [ From Monitor] Respiratory 20 24 Rate Blood Pressure 113/73 113/73 O2 Sat by Pulse 96 96 Oximetry 01/27/21 01/27/21 01/27/21 03:50 04:00 04:10 Temperature Pulse Rate 70 70 69 Pulse Rate [ 81 From Monitor] Respiratory 15 16 16 Rate Blood Pressure 113/73 116/71 116/71 O2 Sat by Pulse 96 96 98 Oximetry 01/27/21 01/27/21 01/27/21 04:20 04:22 04:30 Temperature 100.5 F H Pulse Rate 75 79 Pulse Rate [ From Monitor] Respiratory 16 17 Rate Blood Pressure 116/71 116/71 O2 Sat by Pulse 96 97 Oximetry 01/27/21 01/27/21 01/27/21 04:40 04:50 05:00 Temperature Pulse Rate 68 69 77 Pulse Rate [ From Monitor] Respiratory 17 16 13 Rate Blood Pressure 116/71 116/71 116/77 O2 Sat by Pulse 97 97 97 Oximetry 01/27/21 01/27/21 01/27/21 05:09 05:10 05:20 Temperature Pulse Rate 73 76 75 Pulse Rate [ From Monitor] Respiratory 16 16 Rate Blood Pressure 116/71 116/77 116/77 O2 Sat by Pulse 97 97 96 Oximetry 01/27/21 01/27/21 01/27/21 05:30 05:40 05:50 Temperature Pulse Rate 76 70 70 Pulse Rate [ From Monitor] Respiratory 15 15 13 Rate Blood Pressure 116/77 116/77 116/77 O2 Sat by Pulse 96 97 96 Oximetry 01/27/21 01/27/21 01/27/21 06:00 06:10 06:11 Temperature 99.3 F Pulse Rate 72 74 Pulse Rate [ From Monitor] Respiratory 17 17 Rate Blood Pressure 124/68 124/68 O2 Sat by Pulse 96 97 Oximetry 01/27/21 01/27/21 01/27/21 06:20 06:30 06:40 Temperature Pulse Rate 75 77 72 Pulse Rate [ From Monitor] Respiratory 16 16 17 Rate Blood Pressure 124/68 124/68 124/68 O2 Sat by Pulse 97 97 97 Oximetry 01/27/21 01/27/21 01/27/21 06:50 07:00 07:10 Temperature Pulse Rate 77 69 69 Pulse Rate [ From Monitor] Respiratory 16 16 13 Rate Blood Pressure 124/68 105/67 105/67 O2 Sat by Pulse 97 97 96 Oximetry 01/27/21 01/27/21 01/27/21 07:20 07:30 07:40 Temperature Pulse Rate 81 63 70 Pulse Rate [ From Monitor] Respiratory 15 16 16 Rate Blood Pressure 105/67 105/67 105/67 O2 Sat by Pulse 96 95 96 Oximetry 01/27/21 01/27/21 01/27/21 07:43 07:50 08:00 Temperature 98.4 F Pulse Rate 67 63 66 Pulse Rate [ From Monitor] Respiratory 16 16 Rate Blood Pressure 105/67 106/69 O2 Sat by Pulse 96 97 Oximetry 01/27/21 01/27/21 01/27/21 08:10 08:20 08:25 Temperature Pulse Rate 60 64 70 Pulse Rate [ From Monitor] Respiratory 16 15 Rate Blood Pressure 106/69 106/69 106/69 O2 Sat by Pulse 97 97 94 Oximetry 01/27/21 01/27/21 01/27/21 08:30 08:40 08:50 Temperature Pulse Rate 71 70 71 Pulse Rate [ From Monitor] Respiratory 17 18 16 Rate Blood Pressure 106/69 106/69 106/69 O2 Sat by Pulse 95 95 96 Oximetry Constitutional: comatose Eyes: non-icteric ENT: other (orally intubated, no sedation) Neck: supple Effort: normal Ascultation: Bilateral: diminished breath sounds Percussion: Bilateral: not dull Cardiovascular: irregular rhythm Gastrointestinal: normoactive bowel sounds Integumentary: normal Extremities: no edema, pulses normal Neurologic: unable to assess CBC and BMP: 01/27/21 06:43 01/27/21 06:43 ABG, PT/INR, D-dimer: ABG ABG pH 7.402 (7.320-7.450) 01/27/21 04:00 POC ABG pCO2 59.3 mmHg (32.0-48.0) H 01/27/21 04:00 POC ABG pO2 73.4 mmHg (83-108) L 01/27/21 04:00 POC ABG HCO3 36.1 01/27/21 04:00 ABG O2 Saturation 94.2 (0-100) 01/27/21 04:00 PT/INR, D-dimer PT 14.5 Sec. (12.2-14.9) 01/21/21 15:13 INR 1.14 (0.87-1.13) H 01/21/21 15:13 D-Dimer 229.34 ng/mlDDU (0-234) 01/20/21 23:20 Abnormal lab findings: Abnormal Labs 01/20/21 01/20/21 01/20/21 19:26 19:26 23:20 RBC Hgb 15.3 H Hct 45.8 H MCV 98 H MCH 33 H RDW Lymph % (Auto) 5.2 L [place] % (Auto) 10.4 H Lymph # (Auto) 0.3 L Seg Neutrophils % 82.9 H Seg Neuts % (Manual) Lymphocytes % (Manual) Lymphocytes # (Manual) INR ABG pH POC ABG pCO2 POC ABG pO2 ABG Oxyhemoglobin ABG Potassium ABG Glucose Sodium Potassium Chloride 97.8 L Carbon Dioxide 33 H BUN Creatinine Glucose 127 H POC Glucose Calcium Phosphorus Magnesium Lactate Dehydrogenase 384 H C-Reactive Protein 2.70 H Albumin Cholesterol LDL Cholesterol Direct Arterial Blood Glucose Arterial Blood Ionized Calcium 01/21/21 01/21/21 01/21/21 00:17 05:45 05:45 RBC Hgb 15.9 H Hct 47.9 H MCV 98 H MCH 33 H RDW 15.3 H Lymph % (Auto) [place] % (Auto) Lymph # (Auto) Seg Neutrophils % Seg Neuts % (Manual) 96.0 H Lymphocytes % (Manual) 3.0 L Lymphocytes # (Manual) 0.2 L INR ABG pH POC ABG pCO2 POC ABG pO2 ABG Oxyhemoglobin ABG Potassium ABG Glucose Sodium Potassium Chloride 96.2 L Carbon Dioxide 35 H BUN Creatinine 0.7 L Glucose 142 H POC Glucose 119 H Calcium Phosphorus Magnesium Lactate Dehydrogenase C-Reactive Protein Albumin Cholesterol 210 H LDL Cholesterol Direct 155 H Arterial Blood Glucose Arterial Blood Ionized Calcium 01/21/21 01/21/21 01/21/21 05:56 09:33 15:13 RBC Hgb Hct 45.8 H MCV 98 H MCH RDW Lymph % (Auto) [place] % (Auto) Lymph # (Auto) Seg Neutrophils % Seg Neuts % (Manual) Lymphocytes % (Manual) Lymphocytes # (Manual) INR ABG pH POC ABG pCO2 POC ABG pO2 ABG Oxyhemoglobin ABG Potassium ABG Glucose Sodium Potassium Chloride Carbon Dioxide BUN Creatinine Glucose POC Glucose 147 H 153 H Calcium Phosphorus Magnesium Lactate Dehydrogenase C-Reactive Protein Albumin Cholesterol LDL Cholesterol Direct Arterial Blood Glucose Arterial Blood Ionized Calcium 01/21/21 01/21/21 01/22/21 15:13 16:33 01:53 RBC Hgb Hct MCV MCH RDW Lymph % (Auto) [place] % (Auto) Lymph # (Auto) Seg Neutrophils % Seg Neuts % (Manual) Lymphocytes % (Manual) Lymphocytes # (Manual) INR 1.14 H ABG pH POC ABG pCO2 POC ABG pO2 ABG Oxyhemoglobin ABG Potassium ABG Glucose Sodium Potassium Chloride Carbon Dioxide BUN Creatinine Glucose POC Glucose 126 H 112 H Calcium Phosphorus Magnesium Lactate Dehydrogenase C-Reactive Protein Albumin Cholesterol LDL Cholesterol Direct Arterial Blood Glucose Arterial Blood Ionized Calcium 01/22/21 01/22/21 01/22/21 06:06 12:05 16:51 RBC Hgb Hct MCV MCH RDW Lymph % (Auto) [place] % (Auto) Lymph # (Auto) Seg Neutrophils % Seg Neuts % (Manual) Lymphocytes % (Manual) Lymphocytes # (Manual) INR ABG pH POC ABG pCO2 POC ABG pO2 ABG Oxyhemoglobin ABG Potassium ABG Glucose Sodium Potassium Chloride Carbon Dioxide BUN Creatinine Glucose POC Glucose 107 H 121 H 164 H Calcium Phosphorus Magnesium Lactate Dehydrogenase C-Reactive Protein Albumin Cholesterol LDL Cholesterol Direct Arterial Blood Glucose Arterial Blood Ionized Calcium 01/22/21 01/23/21 01/23/21 23:10 05:39 06:08 RBC Hgb Hct MCV 101 H MCH 33 H RDW Lymph % (Auto) [place] % (Auto) Lymph # (Auto) Seg Neutrophils % Seg Neuts % (Manual) Lymphocytes % (Manual) Lymphocytes # (Manual) INR ABG pH POC ABG pCO2 POC ABG pO2 ABG Oxyhemoglobin ABG Potassium ABG Glucose Sodium Potassium Chloride Carbon Dioxide BUN Creatinine Glucose POC Glucose 143 H 150 H Calcium Phosphorus Magnesium Lactate Dehydrogenase C-Reactive Protein Albumin Cholesterol LDL Cholesterol Direct Arterial Blood Glucose Arterial Blood Ionized Calcium 01/23/21 01/23/21 01/23/21 11:27 13:55 17:54 RBC Hgb Hct MCV MCH RDW Lymph % (Auto) [place] % (Auto) Lymph # (Auto) Seg Neutrophils % Seg Neuts % (Manual) Lymphocytes % (Manual) Lymphocytes # (Manual) INR ABG pH 7.249 L POC ABG pCO2 83.0 H POC ABG pO2 82.8 L ABG Oxyhemoglobin ABG Potassium 4.8 H ABG Glucose 236 H Sodium Potassium Chloride Carbon Dioxide 33 H BUN 32 H Creatinine 1.6 H D Glucose 146 H POC Glucose 218 H Calcium 8.3 L Phosphorus Magnesium 3.00 H Lactate Dehydrogenase C-Reactive Protein Albumin 3.2 L Cholesterol LDL Cholesterol Direct Arterial Blood Glucose 236 H Arterial Blood Ionized Calcium 4.5 L 01/23/21 01/24/21 01/24/21 17:54 03:11 04:56 RBC Hgb Hct MCV 100 H MCH RDW 15.4 H Lymph % (Auto) [place] % (Auto) Lymph # (Auto) Seg Neutrophils % Seg Neuts % (Manual) Lymphocytes % (Manual) Lymphocytes # (Manual) INR ABG pH POC ABG pCO2 POC ABG pO2 ABG Oxyhemoglobin ABG Potassium ABG Glucose Sodium Potassium Chloride Carbon Dioxide BUN Creatinine Glucose POC Glucose 131 H Calcium Phosphorus 2.00 L Magnesium Lactate Dehydrogenase C-Reactive Protein Albumin Cholesterol LDL Cholesterol Direct Arterial Blood Glucose Arterial Blood Ionized Calcium 01/24/21 01/24/21 01/24/21 04:56 05:00 05:47 RBC Hgb Hct MCV MCH RDW Lymph % (Auto) [place] % (Auto) Lymph # (Auto) Seg Neutrophils % Seg Neuts % (Manual) Lymphocytes % (Manual) Lymphocytes # (Manual) INR ABG pH 7.473 H POC ABG pCO2 POC ABG pO2 53.9 L ABG Oxyhemoglobin 90.0 L ABG Potassium ABG Glucose 127 H Sodium 147 H D Potassium Chloride Carbon Dioxide 36 H BUN 33 H Creatinine 1.5 H Glucose 128 H POC Glucose 141 H Calcium 8.3 L Phosphorus Magnesium Lactate Dehydrogenase C-Reactive Protein Albumin Cholesterol LDL Cholesterol Direct Arterial Blood Glucose 127 H Arterial Blood Ionized Calcium 4.5 L 01/24/21 01/24/21 01/25/21 08:44 11:27 03:57 RBC Hgb Hct MCV MCH RDW Lymph % (Auto) [place] % (Auto) Lymph # (Auto) Seg Neutrophils % Seg Neuts % (Manual) Lymphocytes % (Manual) Lymphocytes # (Manual) INR ABG pH 7.515 H POC ABG pCO2 POC ABG pO2 70.5 L ABG Oxyhemoglobin ABG Potassium ABG Glucose 150 H Sodium Potassium Chloride Carbon Dioxide BUN Creatinine Glucose POC Glucose 127 H Calcium Phosphorus 1.40 L D Magnesium 2.90 H Lactate Dehydrogenase C-Reactive Protein Albumin Cholesterol LDL Cholesterol Direct Arterial Blood Glucose 150 H Arterial Blood Ionized Calcium 4.4 L 01/25/21 01/25/21 01/25/21 04:35 04:35 05:07 RBC Hgb Hct MCV 97 H MCH RDW 15.3 H Lymph % (Auto) [place] % (Auto) Lymph # (Auto) Seg Neutrophils % Seg Neuts % (Manual) Lymphocytes % (Manual) Lymphocytes # (Manual) INR ABG pH POC ABG pCO2 POC ABG pO2 ABG Oxyhemoglobin ABG Potassium ABG Glucose Sodium 147 H Potassium 3.5 L D Chloride Carbon Dioxide 37 H BUN 34 H Creatinine Glucose 127 H POC Glucose 117 H Calcium 8.1 L Phosphorus Magnesium Lactate Dehydrogenase C-Reactive Protein Albumin Cholesterol LDL Cholesterol Direct Arterial Blood Glucose Arterial Blood Ionized Calcium 01/25/21 01/25/21 01/25/21 11:15 12:39 17:37 RBC Hgb Hct MCV MCH RDW Lymph % (Auto) [place] % (Auto) Lymph # (Auto) Seg Neutrophils % Seg Neuts % (Manual) Lymphocytes % (Manual) Lymphocytes # (Manual) INR ABG pH POC ABG pCO2 POC ABG pO2 ABG Oxyhemoglobin ABG Potassium ABG Glucose Sodium Potassium Chloride Carbon Dioxide BUN Creatinine Glucose POC Glucose 147 H 143 H 142 H Calcium Phosphorus Magnesium Lactate Dehydrogenase C-Reactive Protein Albumin Cholesterol LDL Cholesterol Direct Arterial Blood Glucose Arterial Blood Ionized Calcium 01/25/21 01/26/21 01/26/21 23:08 03:44 04:30 RBC Hgb Hct MCV MCH RDW Lymph % (Auto) [place] % (Auto) Lymph # (Auto) Seg Neutrophils % Seg Neuts % (Manual) Lymphocytes % (Manual) Lymphocytes # (Manual) INR ABG pH POC ABG pCO2 49.5 H POC ABG pO2 ABG Oxyhemoglobin ABG Potassium ABG Glucose 153 H Sodium 149 H Potassium Chloride Carbon Dioxide 39 H BUN 35 H Creatinine Glucose 141 H POC Glucose 139 H Calcium 8.3 L Phosphorus Magnesium Lactate Dehydrogenase C-Reactive Protein Albumin Cholesterol LDL Cholesterol Direct Arterial Blood Glucose 153 H Arterial Blood Ionized Calcium 4.5 L 01/26/21 01/26/21 01/26/21 05:31 11:35 12:11 RBC Hgb Hct MCV MCH RDW Lymph % (Auto) [place] % (Auto) Lymph # (Auto) Seg Neutrophils % Seg Neuts % (Manual) Lymphocytes % (Manual) Lymphocytes # (Manual) INR ABG pH POC ABG pCO2 POC ABG pO2 ABG Oxyhemoglobin ABG Potassium ABG Glucose Sodium Potassium Chloride Carbon Dioxide BUN Creatinine Glucose POC Glucose 143 H 145 H 161 H Calcium Phosphorus Magnesium Lactate Dehydrogenase C-Reactive Protein Albumin Cholesterol LDL Cholesterol Direct Arterial Blood Glucose Arterial Blood Ionized Calcium 01/26/21 01/26/21 01/26/21 12:12 18:01 23:22 RBC Hgb Hct MCV MCH RDW Lymph % (Auto) [place] % (Auto) Lymph # (Auto) Seg Neutrophils % Seg Neuts % (Manual) Lymphocytes % (Manual) Lymphocytes # (Manual) INR ABG pH POC ABG pCO2 POC ABG pO2 ABG Oxyhemoglobin ABG Potassium ABG Glucose Sodium Potassium Chloride Carbon Dioxide BUN Creatinine Glucose POC Glucose 163 H 151 H 143 H Calcium Phosphorus Magnesium Lactate Dehydrogenase C-Reactive Protein Albumin Cholesterol LDL Cholesterol Direct Arterial Blood Glucose Arterial Blood Ionized Calcium 01/27/21 01/27/21 01/27/21 04:00 05:24 06:43 RBC 3.45 L Hgb 11.1 L Hct 34.4 L MCV 100 H MCH RDW Lymph % (Auto) [place] % (Auto) Lymph # (Auto) Seg Neutrophils % Seg Neuts % (Manual) Lymphocytes % (Manual) Lymphocytes # (Manual) INR ABG pH POC ABG pCO2 59.3 H POC ABG pO2 73.4 L ABG Oxyhemoglobin 93.2 L ABG Potassium ABG Glucose 178 H Sodium Potassium Chloride Carbon Dioxide BUN Creatinine Glucose POC Glucose 152 H Calcium Phosphorus Magnesium Lactate Dehydrogenase C-Reactive Protein Albumin Cholesterol LDL Cholesterol Direct Arterial Blood Glucose 178 H Arterial Blood Ionized Calcium 4.4 L 01/27/21 06:43 RBC Hgb Hct MCV MCH RDW Lymph % (Auto) [place] % (Auto) Lymph # (Auto) Seg Neutrophils % Seg Neuts % (Manual) Lymphocytes % (Manual) Lymphocytes # (Manual) INR ABG pH POC ABG pCO2 POC ABG pO2 ABG Oxyhemoglobin ABG Potassium ABG Glucose Sodium 148 H Potassium Chloride Carbon Dioxide 40 H BUN 40 H Creatinine Glucose 166 H POC Glucose Calcium Phosphorus Magnesium Lactate Dehydrogenase C-Reactive Protein Albumin Cholesterol LDL Cholesterol Direct Arterial Blood Glucose Arterial Blood Ionized Calcium Allied health notes reviewed: nursing
[2021-01-27] MEDS: ASPIRIN 325 MG TAB PO SCH (10:10)
[2021-01-27] MEDS: DOCUSATE SODIUM 100 MG CAP PO SCH ×2 (10:11→21:08)
[2021-01-27] MEDS: FAMOTIDINE 20 MG/2 ML INJ IV SCH ×2 (10:11→21:08)
--- NOTE | 2021-01-27 11:50 | Progress Note ---
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 -Can restart Eliquis -ASA 81 mg daily -SQ heparine # Hypertensive urgency -Labetalol 10 mg IV q. 5 minutes as needed. Hydralazine 10 mg IV every 6 hours as needed. Metoprolol 25 mg p.o. daily. We will monitor the blood pressure closely # DVT prophylaxis -can restart Eliquis - Pepcid 20 mg p.o. twice daily for GI prophylaxis. -Patient is a full code PLAN 1- MRI brain when possible 2- CTA brain and neck are unremarkable 3- NPO ,IV fluid--Na#147 4-Treat underlying infection 5- Eliquis can restart plus ASA 81 mg daily 6- Lipitor up to 80 mg will sign off Subjective Date of service: 01/27/21 Principal diagnosis: CVA Interval history: pt. had respiratory distress required intubation transferred to unit MRI difficult to do CTA done is unremarkable in brain or neck Echo showed EF 50-55% he is intubated sedated move all limbs slightly currently on propofol [address] brain yesterday is remarkable for old r.MCA infarct with no sign of new infarct Objective - Vital Sign Vital Signs - 12hr 01/26/21 01/26/21 01/27/21 23:50 23:59 00:00 Temperature 100.4 F H 99.5 F Pulse Rate 65 72 Pulse Rate [ 81 From Monitor] Respiratory 16 14 Rate Blood Pressure 101/65 107/72 O2 Sat by Pulse 97 97 Oximetry 01/27/21 01/27/21 01/27/21 00:09 00:10 00:20 Temperature Pulse Rate 76 71 75 Pulse Rate [ From Monitor] Respiratory 16 16 Rate Blood Pressure 104/76 107/72 107/72 O2 Sat by Pulse 97 97 97 Oximetry 01/27/21 01/27/21 01/27/21 00:30 00:40 00:50 Temperature Pulse Rate 64 62 67 Pulse Rate [ From Monitor] Respiratory 16 16 16 Rate Blood Pressure 107/64 107/64 107/64 O2 Sat by Pulse 96 96 96 Oximetry 01/27/21 01/27/21 01/27/21 01:00 01:10 01:20 Temperature Pulse Rate 69 64 67 Pulse Rate [ From Monitor] Respiratory 16 14 16 Rate Blood Pressure 102/63 102/63 102/63 O2 Sat by Pulse 96 97 97 Oximetry 01/27/21 01/27/21 01/27/21 01:30 01:40 01:50 Temperature Pulse Rate 68 64 69 Pulse Rate [ From Monitor] Respiratory 16 16 7 L Rate Blood Pressure 99/67 102/63 102/63 O2 Sat by Pulse 97 96 97 Oximetry 01/27/21 01/27/21 01/27/21 02:00 02:10 02:20 Temperature Pulse Rate 67 77 75 Pulse Rate [ From Monitor] Respiratory 12 19 18 Rate Blood Pressure 116/71 99/67 99/67 O2 Sat by Pulse 96 96 96 Oximetry 01/27/21 01/27/21 01/27/21 02:30 02:40 02:50 Temperature Pulse Rate 68 74 76 Pulse Rate [ From Monitor] Respiratory 16 17 17 Rate Blood Pressure 99/67 116/71 116/71 O2 Sat by Pulse 96 97 96 Oximetry 01/27/21 01/27/21 01/27/21 03:00 03:10 03:20 Temperature Pulse Rate 74 84 74 Pulse Rate [ From Monitor] Respiratory 13 16 13 Rate Blood Pressure 113/73 113/73 113/73 O2 Sat by Pulse 96 96 96 Oximetry 0601/27/21 01/27/21 03:24 03:30 03:40 Temperature 99.2 F Pulse Rate 76 68 Pulse Rate [ From Monitor] Respiratory 20 24 Rate Blood Pressure 113/73 113/73 O2 Sat by Pulse 96 96 Oximetry 01/27/21 01/27/21 01/27/21 03:50 04:00 04:10 Temperature Pulse Rate 70 70 69 Pulse Rate [ 81 From Monitor] Respiratory 15 16 16 Rate Blood Pressure 113/73 116/71 116/71 O2 Sat by Pulse 96 96 98 Oximetry 01/27/21 01/27/21 01/27/21 04:20 04:22 04:30 Temperature 100.5 F H Pulse Rate 75 79 Pulse Rate [ From Monitor] Respiratory 16 17 Rate Blood Pressure 116/71 116/71 O2 Sat by Pulse 96 97 Oximetry 01/27/21 01/27/21 01/27/21 04:40 04:50 05:00 Temperature Pulse Rate 68 69 77 Pulse Rate [ From Monitor] Respiratory 17 16 13 Rate Blood Pressure 116/71 116/71 116/77 O2 Sat by Pulse 97 97 97 Oximetry 01/27/21 01/27/21 01/27/21 05:09 05:10 05:20 Temperature Pulse Rate 73 76 75 Pulse Rate [ From Monitor] Respiratory 16 16 Rate Blood Pressure 116/71 116/77 116/77 O2 Sat by Pulse 97 97 96 Oximetry 01/27/21 01/27/21 01/27/21 05:30 05:40 05:50 Temperature Pulse Rate 76 70 70 Pulse Rate [ From Monitor] Respiratory 15 15 13 Rate Blood Pressure 116/77 116/77 116/77 O2 Sat by Pulse 96 97 96 Oximetry 01/27/21 01/27/21 01/27/21 06:00 06:10 06:11 Temperature 99.3 F Pulse Rate 72 74 Pulse Rate [ From Monitor] Respiratory 17 17 Rate Blood Pressure 124/68 124/68 O2 Sat by Pulse 96 97 Oximetry 01/27/21 01/27/21 01/27/21 06:20 06:30 06:40 Temperature Pulse Rate 75 77 72 Pulse Rate [ From Monitor] Respiratory 16 16 17 Rate Blood Pressure 124/68 124/68 124/68 O2 Sat by Pulse 97 97 97 Oximetry 01/27/21 01/27/21 01/27/21 06:50 07:00 07:10 Temperature Pulse Rate 77 69 69 Pulse Rate [ From Monitor] Respiratory 16 16 13 Rate Blood Pressure 124/68 105/67 105/67 O2 Sat by Pulse 97 97 96 Oximetry 01/27/21 01/27/21 01/27/21 07:20 07:30 07:40 Temperature Pulse Rate 81 63 70 Pulse Rate [ From Monitor] Respiratory 15 16 16 Rate Blood Pressure 105/67 105/67 105/67 O2 Sat by Pulse 96 95 96 Oximetry 01/27/21 01/27/21 01/27/21 07:43 07:50 08:00 Temperature 98.4 F Pulse Rate 67 63 66 Pulse Rate [ 68 From Monitor] Respiratory 16 16 Rate Blood Pressure 105/67 106/69 O2 Sat by Pulse 96 94 Oximetry 01/27/21 01/27/21 01/27/21 08:10 08:20 08:25 Temperature Pulse Rate 60 64 70 Pulse Rate [ From Monitor] Respiratory 16 15 Rate Blood Pressure 106/69 106/69 106/69 O2 Sat by Pulse 97 97 94 Oximetry 01/27/21 01/27/21 01/27/21 08:30 08:40 08:50 Temperature Pulse Rate 71 70 71 Pulse Rate [ From Monitor] Respiratory 17 18 16 Rate Blood Pressure 106/69 106/69 106/69 O2 Sat by Pulse 95 95 96 Oximetry 01/27/21 01/27/21 01/27/21 09:00 09:10 09:20 Temperature Pulse Rate 73 79 75 Pulse Rate [ From Monitor] Respiratory 17 13 16 Rate Blood Pressure 106/69 136/82 136/82 O2 Sat by Pulse 97 95 95 Oximetry 01/27/21 01/27/21 01/27/21 09:30 09:40 09:50 Temperature Pulse Rate 75 84 70 Pulse Rate [ From Monitor] Respiratory 14 17 11 L Rate Blood Pressure 136/82 136/82 136/82 O2 Sat by Pulse 94 97 96 Oximetry 01/27/21 01/27/21 01/27/21 10:00 10:10 10:20 Temperature Pulse Rate 75 80 77 Pulse Rate [ From Monitor] Respiratory 17 16 14 Rate Blood Pressure 138/82 138/82 138/82 O2 Sat by Pulse 95 95 96 Oximetry 01/27/21 01/27/21 01/27/21 10:30 10:40 10:50 Temperature Pulse Rate 74 82 70 Pulse Rate [ From Monitor] Respiratory 17 17 17 Rate Blood Pressure 138/82 138/82 138/82 O2 Sat by Pulse 96 95 95 Oximetry 01/27/21 01/27/21 01/27/21 11:00 11:10 11:20 Temperature Pulse Rate 72 68 70 Pulse Rate [ From Monitor] Respiratory 17 16 Rate Blood Pressure 138/82 110/66 O2 Sat by Pulse 95 96 Oximetry - General Apperance Constitutional: comfortable, other (intubated and sedated) - EENT EENT: PERRL, mucous membranes moist - Respiratory Respiratory: chest non-tender, lungs clear, normal breath sounds, rhonchi (AF ) - Cardiovascular Extremities: no peripheral edema bilat, no clubbing, cyanosis - Gastrointestinal Gastrointestinal: normoactive bowel sounds, absent bowel sounds - Integumentary Integumentary: normal - Neurologic Cranial nerve examination: PERRL, EOMI Speech examination: intact Detailed motor examination: grossly full strength in, full strength in all uma, other (no obvious weakness he moves all to pain stimuli today is more sleepy and sedated withdraw to pain ) - Laboratory Findings CBC and BMP: 01/27/21 06:43 01/27/21 06:43 Abnormal Lab Findings: Abnormal Labs 01/20/21 01/20/21 01/20/21 19:26 19:26 23:20 RBC Hgb 15.3 H Hct 45.8 H MCV 98 H MCH 33 H RDW Lymph % (Auto) 5.2 L Cherry % (Auto) 10.4 H Lymph # (Auto) 0.3 L Seg Neutrophils % 82.9 H Seg Neuts % (Manual) Lymphocytes % (Manual) Lymphocytes # (Manual) INR ABG pH POC ABG pCO2 POC ABG pO2 ABG Oxyhemoglobin ABG Potassium ABG Glucose Sodium Potassium Chloride 97.8 L Carbon Dioxide 33 H BUN Creatinine Glucose 127 H POC Glucose Calcium Phosphorus Magnesium Lactate Dehydrogenase 384 H C-Reactive Protein 2.70 H Albumin Cholesterol LDL Cholesterol Direct Arterial Blood Glucose Arterial Blood Ionized Calcium 01/21/21 01/21/21 01/21/21 00:17 05:45 05:45 RBC Hgb 15.9 H Hct 47.9 H MCV 98 H MCH 33 H RDW 15.3 H Lymph % (Auto) Cherry % (Auto) Lymph # (Auto) Seg Neutrophils % Seg Neuts % (Manual) 96.0 H Lymphocytes % (Manual) 3.0 L Lymphocytes # (Manual) 0.2 L INR ABG pH POC ABG pCO2 POC ABG pO2 ABG Oxyhemoglobin ABG Potassium ABG Glucose Sodium Potassium Chloride 96.2 L Carbon Dioxide 35 H BUN Creatinine 0.7 L Glucose 142 H POC Glucose 119 H Calcium Phosphorus Magnesium Lactate Dehydrogenase C-Reactive Protein Albumin Cholesterol 210 H LDL Cholesterol Direct 155 H Arterial Blood Glucose Arterial Blood Ionized Calcium 01/21/21 01/21/21 01/21/21 05:56 09:33 15:13 RBC Hgb Hct 45.8 H MCV 98 H MCH RDW Lymph % (Auto) Cherry % (Auto) Lymph # (Auto) Seg Neutrophils % Seg Neuts % (Manual) Lymphocytes % (Manual) Lymphocytes # (Manual) INR ABG pH POC ABG pCO2 POC ABG pO2 ABG Oxyhemoglobin ABG Potassium ABG Glucose Sodium Potassium Chloride Carbon Dioxide BUN Creatinine Glucose POC Glucose 147 H 153 H Calcium Phosphorus Magnesium Lactate Dehydrogenase C-Reactive Protein Albumin Cholesterol LDL Cholesterol Direct Arterial Blood Glucose Arterial Blood Ionized Calcium 01/21/21 01/21/21 01/22/21 15:13 16:33 01:53 RBC Hgb Hct MCV MCH RDW Lymph % (Auto) Cherry % (Auto) Lymph # (Auto) Seg Neutrophils % Seg Neuts % (Manual) Lymphocytes % (Manual) Lymphocytes # (Manual) INR 1.14 H ABG pH POC ABG pCO2 POC ABG pO2 ABG Oxyhemoglobin ABG Potassium ABG Glucose Sodium Potassium Chloride Carbon Dioxide BUN Creatinine Glucose POC Glucose 126 H 112 H Calcium Phosphorus Magnesium Lactate Dehydrogenase C-Reactive Protein Albumin Cholesterol LDL Cholesterol Direct Arterial Blood Glucose Arterial Blood Ionized Calcium 01/22/21 01/22/21 01/22/21 06:06 12:05 16:51 RBC Hgb Hct MCV MCH RDW Lymph % (Auto) Cherry % (Auto) Lymph # (Auto) Seg Neutrophils % Seg Neuts % (Manual) Lymphocytes % (Manual) Lymphocytes # (Manual) INR ABG pH POC ABG pCO2 POC ABG pO2 ABG Oxyhemoglobin ABG Potassium ABG Glucose Sodium Potassium Chloride Carbon Dioxide BUN Creatinine Glucose POC Glucose 107 H 121 H 164 H Calcium Phosphorus Magnesium Lactate Dehydrogenase C-Reactive Protein Albumin Cholesterol LDL Cholesterol Direct Arterial Blood Glucose Arterial Blood Ionized Calcium 01/22/21 01/23/21 01/23/21 23:10 05:39 06:08 RBC Hgb Hct MCV 101 H MCH 33 H RDW Lymph % (Auto) Cherry % (Auto) Lymph # (Auto) Seg Neutrophils % Seg Neuts % (Manual) Lymphocytes % (Manual) Lymphocytes # (Manual) INR ABG pH POC ABG pCO2 POC ABG pO2 ABG Oxyhemoglobin ABG Potassium ABG Glucose Sodium Potassium Chloride Carbon Dioxide BUN Creatinine Glucose POC Glucose 143 H 150 H Calcium Phosphorus Magnesium Lactate Dehydrogenase C-Reactive Protein Albumin Cholesterol LDL Cholesterol Direct Arterial Blood Glucose Arterial Blood Ionized Calcium 01/23/21 01/23/21 01/23/21 11:27 13:55 17:54 RBC Hgb Hct MCV MCH RDW Lymph % (Auto) Cherry % (Auto) Lymph # (Auto) Seg Neutrophils % Seg Neuts % (Manual) Lymphocytes % (Manual) Lymphocytes # (Manual) INR ABG pH 7.249 L POC ABG pCO2 83.0 H POC ABG pO2 82.8 L ABG Oxyhemoglobin ABG Potassium 4.8 H ABG Glucose 236 H Sodium Potassium Chloride Carbon Dioxide 33 H BUN 32 H Creatinine 1.6 H D Glucose 146 H POC Glucose 218 H Calcium 8.3 L Phosphorus Magnesium 3.00 H Lactate Dehydrogenase C-Reactive Protein Albumin 3.2 L Cholesterol LDL Cholesterol Direct Arterial Blood Glucose 236 H Arterial Blood Ionized Calcium 4.5 L 01/23/21 01/24/21 01/24/21 17:54 03:11 04:56 RBC Hgb Hct MCV 100 H MCH RDW 15.4 H Lymph % (Auto) Cherry % (Auto) Lymph # (Auto) Seg Neutrophils % Seg Neuts % (Manual) Lymphocytes % (Manual) Lymphocytes # (Manual) INR ABG pH POC ABG pCO2 POC ABG pO2 ABG Oxyhemoglobin ABG Potassium ABG Glucose Sodium Potassium Chloride Carbon Dioxide BUN Creatinine Glucose POC Glucose 131 H Calcium Phosphorus 2.00 L Magnesium Lactate Dehydrogenase C-Reactive Protein Albumin Cholesterol LDL Cholesterol Direct Arterial Blood Glucose Arterial Blood Ionized Calcium 01/24/21 01/24/21 01/24/21 04:56 05:00 05:47 RBC Hgb Hct MCV MCH RDW Lymph % (Auto) Cherry % (Auto) Lymph # (Auto) Seg Neutrophils % Seg Neuts % (Manual) Lymphocytes % (Manual) Lymphocytes # (Manual) INR ABG pH 7.473 H POC ABG pCO2 POC ABG pO2 53.9 L ABG Oxyhemoglobin 90.0 L ABG Potassium ABG Glucose 127 H Sodium 147 H D Potassium Chloride Carbon Dioxide 36 H BUN 33 H Creatinine 1.5 H Glucose 128 H POC Glucose 141 H Calcium 8.3 L Phosphorus Magnesium Lactate Dehydrogenase C-Reactive Protein Albumin Cholesterol LDL Cholesterol Direct Arterial Blood Glucose 127 H Arterial Blood Ionized Calcium 4.5 L 01/24/21 01/24/21 01/25/21 08:44 11:27 03:57 RBC Hgb Hct MCV MCH RDW Lymph % (Auto) Cherry % (Auto) Lymph # (Auto) Seg Neutrophils % Seg Neuts % (Manual) Lymphocytes % (Manual) Lymphocytes # (Manual) INR ABG pH 7.515 H POC ABG pCO2 POC ABG pO2 70.5 L ABG Oxyhemoglobin ABG Potassium ABG Glucose 150 H Sodium Potassium Chloride Carbon Dioxide BUN Creatinine Glucose POC Glucose 127 H Calcium Phosphorus 1.40 L D Magnesium 2.90 H Lactate Dehydrogenase C-Reactive Protein Albumin Cholesterol LDL Cholesterol Direct Arterial Blood Glucose 150 H Arterial Blood Ionized Calcium 4.4 L 01/25/21 01/25/21 01/25/21 04:35 04:35 05:07 RBC Hgb Hct MCV 97 H MCH RDW 15.3 H Lymph % (Auto) Cherry % (Auto) Lymph # (Auto) Seg Neutrophils % Seg Neuts % (Manual) Lymphocytes % (Manual) Lymphocytes # (Manual) INR ABG pH POC ABG pCO2 POC ABG pO2 ABG Oxyhemoglobin ABG Potassium ABG Glucose Sodium 147 H Potassium 3.5 L D Chloride Carbon Dioxide 37 H BUN 34 H Creatinine Glucose 127 H POC Glucose 117 H Calcium 8.1 L Phosphorus Magnesium Lactate Dehydrogenase C-Reactive Protein Albumin Cholesterol LDL Cholesterol Direct Arterial Blood Glucose Arterial Blood Ionized Calcium 01/25/21 01/25/21 01/25/21 11:15 12:39 17:37 RBC Hgb Hct MCV MCH RDW Lymph % (Auto) Cherry % (Auto) Lymph # (Auto) Seg Neutrophils % Seg Neuts % (Manual) Lymphocytes % (Manual) Lymphocytes # (Manual) INR ABG pH POC ABG pCO2 POC ABG pO2 ABG Oxyhemoglobin ABG Potassium ABG Glucose Sodium Potassium Chloride Carbon Dioxide BUN Creatinine Glucose POC Glucose 147 H 143 H 142 H Calcium Phosphorus Magnesium Lactate Dehydrogenase C-Reactive Protein Albumin Cholesterol LDL Cholesterol Direct Arterial Blood Glucose Arterial Blood Ionized Calcium 01/25/21 01/26/2121 23:08 03:44 04:30 RBC Hgb Hct MCV MCH RDW Lymph % (Auto) Cherry % (Auto) Lymph # (Auto) Seg Neutrophils % Seg Neuts % (Manual) Lymphocytes % (Manual) Lymphocytes # (Manual) INR ABG pH POC ABG pCO2 49.5 H POC ABG pO2 ABG Oxyhemoglobin ABG Potassium ABG Glucose 153 H Sodium 149 H Potassium Chloride Carbon Dioxide 39 H BUN 35 H Creatinine Glucose 141 H POC Glucose 139 H Calcium 8.3 L Phosphorus Magnesium Lactate Dehydrogenase C-Reactive Protein Albumin Cholesterol LDL Cholesterol Direct Arterial Blood Glucose 153 H Arterial Blood Ionized Calcium 4.5 L 01/26/21 01/26/21 01/26/21 05:31 11:35 12:11 RBC Hgb Hct MCV MCH RDW Lymph % (Auto) Cherry % (Auto) Lymph # (Auto) Seg Neutrophils % Seg Neuts % (Manual) Lymphocytes % (Manual) Lymphocytes # (Manual) INR ABG pH POC ABG pCO2 POC ABG pO2 ABG Oxyhemoglobin ABG Potassium ABG Glucose Sodium Potassium Chloride Carbon Dioxide BUN Creatinine Glucose POC Glucose 143 H 145 H 161 H Calcium Phosphorus Magnesium Lactate Dehydrogenase C-Reactive Protein Albumin Cholesterol LDL Cholesterol Direct Arterial Blood Glucose Arterial Blood Ionized Calcium 01/26/21 01/26/21 01/26/21 12:12 18:01 23:22 RBC Hgb Hct MCV MCH RDW Lymph % (Auto) Cherry % (Auto) Lymph # (Auto) Seg Neutrophils % Seg Neuts % (Manual) Lymphocytes % (Manual) Lymphocytes # (Manual) INR ABG pH POC ABG pCO2 POC ABG pO2 ABG Oxyhemoglobin ABG Potassium ABG Glucose Sodium Potassium Chloride Carbon Dioxide BUN Creatinine Glucose POC Glucose 163 H 151 H 143 H Calcium Phosphorus Magnesium Lactate Dehydrogenase C-Reactive Protein Albumin Cholesterol LDL Cholesterol Direct Arterial Blood Glucose Arterial Blood Ionized Calcium 01/27/21 01/27/21 01/27/21 04:00 05:24 06:43 RBC 3.45 L Hgb 11.1 L Hct 34.4 L MCV 100 H MCH RDW Lymph % (Auto) Cherry % (Auto) Lymph # (Auto) Seg Neutrophils % Seg Neuts % (Manual) Lymphocytes % (Manual) Lymphocytes # (Manual) INR ABG pH POC ABG pCO2 59.3 H POC ABG pO2 73.4 L ABG Oxyhemoglobin 93.2 L ABG Potassium ABG Glucose 178 H Sodium Potassium Chloride Carbon Dioxide BUN Creatinine Glucose POC Glucose 152 H Calcium Phosphorus Magnesium Lactate Dehydrogenase C-Reactive Protein Albumin Cholesterol LDL Cholesterol Direct Arterial Blood Glucose 178 H Arterial Blood Ionized Calcium 4.4 L 01/27/21 01/27/21 06:43 11:35 RBC Hgb Hct MCV MCH RDW Lymph % (Auto) Cherry % (Auto) Lymph # (Auto) Seg Neutrophils % Seg Neuts % (Manual) Lymphocytes % (Manual) Lymphocytes # (Manual) INR ABG pH POC ABG pCO2 POC ABG pO2 ABG Oxyhemoglobin ABG Potassium ABG Glucose Sodium 148 H Potassium Chloride Carbon Dioxide 40 H BUN 40 H Creatinine Glucose 166 H POC Glucose 146 H Calcium Phosphorus Magnesium Lactate Dehydrogenase C-Reactive Protein Albumin Cholesterol LDL Cholesterol Direct Arterial Blood Glucose Arterial Blood Ionized Calcium
--- NOTE | 2021-01-27 12:20 | Event Note ---
I called patient's niece Elvira Shetty at [phone] and she conferneced in [facility] () at [phone] and update both on the diagnosis of the CVA, remaining on mechanical ventilation and being of vasopressor support. The stated that his friend from [facility] will visit the patient today.
[2021-01-27] MEDS: SENNOSIDES 8.6 MG TAB PO PRN (21:08)
[2021-01-27] MEDS: LORazepam 2 MG/ML VIAL IV PRN (22:39)
[2021-01-28] MEDS: INSULIN LISPRO 100 UNIT/ML SUB-Q SCH ×5 (05:46→23:27)
[2021-01-28] MEDS: HEPARIN 5,000 UNIT/1 ML VIAL SUB-Q SCH (05:47)
[2021-01-28 06:26] LABS: Hematocrit 33.9 % (35.5-45.6); Hemoglobin 11.1 gm/dl (11.8-15.2); Mean Corpuscular HGB Conc 33 % (32-34); Mean Corpuscular Volume 100 fl (84-94); Platelet Count 192 K/mm3 (140-440); Red Blood Count 3.39 M/mm3 (3.65-5.03); Red Cell Distribution Width 15.1 % (13.2-15.2)
[2021-01-28 06:39] LABS: BUN/Creatinine Ratio 33; Blood Urea Nitrogen 46 mg/dL (9-20); Calcium 8.6 mg/dL (8.4-10.2); Hemolysis Index 5
[2021-01-28] MEDS: DOCUSATE SODIUM 100 MG CAP PO SCH ×2 (09:34→21:48)
[2021-01-28] MEDS: SENNOSIDES 8.6 MG TAB PO PRN (09:34)
[2021-01-28] MEDS: ASPIRIN 325 MG TAB PO SCH (09:35)
[2021-01-28] MEDS: FAMOTIDINE 20 MG TAB PO SCH ×2 (09:35→21:48)
[2021-01-28] MEDS ORDERED: APIXABAN 5 MG TAB PO SCH (10:00)
[2021-01-28 10:51] LABS: INR 1.05 (0.87-1.13)
[2021-01-28 10:53] LABS: Partial Thromboplastin Time 42.8 Sec. (24.2-36.6)
--- NOTE | 2021-01-28 11:14 | Progress Note ---
Assessment and Plan 65 y/o male with acute respiratory failure secondary to altered mental state from possible stroke vs worsening stroke with hypotension requiring pressors. 01/28/21: Neurology has signed off. Will speak with CM about possible LTACH. They (neuro) are still asking for MRI, but not sure how this will ion exchange operator if they have signed off. Ok with anticoagulation and aggressive lipid control. No BM yet, BUN up to 46 but HgB has stayed the same. Will continue to monitor. 01/27/21: Stop Lasix therapy. Follow up any new neurology recs based on new head CT findings. Concern for possible bleeding given rise in BUN and drop in H/H, although patient could have been hemoconcentrated. Will start Bowel Regimen and be mindful of color of stool. No obvious bleeding has been witnessed. Continue to wean sedation for rass of 0 if possible. Wean Vent for sats >88%. I dropped FiO2 down to 75 this morning. Guarded prognosis. 01/26/21: Continue supportive measures. Agree with repeat Head CT. Sedation for patient safety but needs daily vacations. Guarded prognosis. 1. Place central line 2. Place art line 3. Vasopressor therapy 4. No sedation as of right now 5. Consider repeat CT head 6. Guarded prognosis. CCT 31 minutes. Subjective Date of service: 01/28/21 Principal diagnosis: CVA Interval history: Patient remains quite hypoxic. Down to 75% but PaO2 is only 67. Still requires sedation for safety but when off does not follow commands and is moving ext but not purposeful. Objective Vital Signs - 12hr 01/27/21 01/27/21 01/27/21 23:20 23:21 23:31 Temperature Pulse Rate 70 76 80 Pulse Rate [ From Monitor] Respiratory 16 16 16 Rate Blood Pressure 126/73 107/58 107/58 O2 Sat by Pulse 97 97 98 Oximetry 01/27/21 01/27/21 01/27/21 23:33 23:35 23:41 Temperature 97.8 F Pulse Rate 69 71 Pulse Rate [ From Monitor] Respiratory 16 16 Rate Blood Pressure 107/58 107/58 O2 Sat by Pulse 97 96 Oximetry 01/27/21 01/28/21 01/28/21 23:51 00:00 00:11 Temperature 97.8 F Pulse Rate 71 71 72 Pulse Rate [ 75 From Monitor] Respiratory 16 16 16 Rate Blood Pressure 107/58 111/63 111/63 O2 Sat by Pulse 97 97 97 Oximetry 01/28/21 01/28/21 01/28/21 00:14 00:21 00:31 Temperature Pulse Rate 74 68 75 Pulse Rate [ From Monitor] Respiratory 16 16 Rate Blood Pressure 111/63 111/63 111/63 O2 Sat by Pulse 96 96 97 Oximetry 01/28/21 01/28/21 01/28/21 00:41 00:51 01:00 Temperature Pulse Rate 78 70 73 Pulse Rate [ From Monitor] Respiratory 12 16 16 Rate Blood Pressure 111/63 111/63 111/65 O2 Sat by Pulse 96 96 97 Oximetry 01/28/21 01/28/21 01/28/21 01:11 01:21 01:30 Temperature Pulse Rate 73 77 67 Pulse Rate [ From Monitor] Respiratory 16 16 16 Rate Blood Pressure 111/65 111/65 111/65 O2 Sat by Pulse 97 96 97 Oximetry 01/28/21 01/28/21 01/28/21 01:41 01:51 02:00 Temperature Pulse Rate 75 76 80 Pulse Rate [ From Monitor] Respiratory 16 16 16 Rate Blood Pressure 111/65 111/65 114/69 O2 Sat by Pulse 97 96 97 Oximetry 01/28/21 01/28/21 01/28/21 02:11 02:21 02:31 Temperature Pulse Rate 73 79 74 Pulse Rate [ From Monitor] Respiratory 16 16 16 Rate Blood Pressure 114/69 114/69 114/69 O2 Sat by Pulse 97 96 96 Oximetry 01/28/21 01/28/21 01/28/21 02:41 02:51 03:00 Temperature Pulse Rate 92 H 82 81 Pulse Rate [ From Monitor] Respiratory 16 16 16 Rate Blood Pressure 114/69 114/69 128/75 O2 Sat by Pulse 97 96 95 Oximetry 01/28/21 01/28/21 01/28/21 03:11 03:21 03:31 Temperature Pulse Rate 72 85 80 Pulse Rate [ From Monitor] Respiratory 16 16 16 Rate Blood Pressure 128/75 128/75 128/75 O2 Sat by Pulse 96 97 95 Oximetry 01/28/21 01/28/21 01/28/21 03:41 03:43 03:51 Temperature 99.9 F H Pulse Rate 90 86 Pulse Rate [ From Monitor] Respiratory 16 16 Rate Blood Pressure 128/75 128/75 O2 Sat by Pulse 96 95 Oximetry 01/28/21 01/28/21 01/28/21 03:58 04:00 04:11 Temperature Pulse Rate 80 83 83 Pulse Rate [ 75 From Monitor] Respiratory 15 17 Rate Blood Pressure 128/75 118/81 118/81 O2 Sat by Pulse 95 95 96 Oximetry 01/28/21 01/28/21 01/28/21 04:21 04:31 04:41 Temperature Pulse Rate 92 H 82 87 Pulse Rate [ From Monitor] Respiratory 14 16 14 Rate Blood Pressure 118/81 118/81 128/75 O2 Sat by Pulse 96 95 96 Oximetry 01/28/21 01/28/21 01/28/21 04:51 05:00 05:11 Temperature Pulse Rate 78 85 81 Pulse Rate [ From Monitor] Respiratory 18 16 17 Rate Blood Pressure 128/75 140/78 140/78 O2 Sat by Pulse 95 95 95 Oximetry 01/28/21 01/28/21 01/28/21 05:21 05:31 05:41 Temperature Pulse Rate 88 81 81 Pulse Rate [ From Monitor] Respiratory 15 16 22 Rate Blood Pressure 140/78 140/78 140/78 O2 Sat by Pulse 95 95 94 Oximetry 01/28/21 01/28/21 01/28/21 05:51 06:00 06:11 Temperature Pulse Rate 89 87 84 Pulse Rate [ From Monitor] Respiratory 16 17 16 Rate Blood Pressure 140/78 148/80 140/78 O2 Sat by Pulse 95 95 96 Oximetry 01/28/21 01/28/21 01/28/21 06:21 06:31 06:41 Temperature Pulse Rate 87 80 83 Pulse Rate [ From Monitor] Respiratory 16 16 16 Rate Blood Pressure 140/78 140/78 140/78 O2 Sat by Pulse 96 96 96 Oximetry 01/28/21 01/28/21 01/28/21 06:51 07:00 07:11 Temperature Pulse Rate 84 83 80 Pulse Rate [ From Monitor] Respiratory 13 16 12 Rate Blood Pressure 140/78 138/75 138/75 O2 Sat by Pulse 96 95 96 Oximetry 01/28/21 01/28/21 01/28/21 07:21 07:31 07:40 Temperature Pulse Rate 85 87 80 Pulse Rate [ From Monitor] Respiratory 16 17 Rate Blood Pressure 138/75 138/75 111/57 O2 Sat by Pulse 96 96 96 Oximetry 01/28/21 01/28/2121 07:41 07:51 08:00 Temperature 100.5 F H Pulse Rate 89 91 H 76 Pulse Rate [ 75 From Monitor] Respiratory 16 17 17 Rate Blood Pressure 138/75 138/75 139/76 O2 Sat by Pulse 95 95 95 Oximetry 01/28/21 01/28/21 01/28/21 08:11 08:21 08:31 Temperature Pulse Rate 85 90 89 Pulse Rate [ From Monitor] Respiratory 15 17 14 Rate Blood Pressure 139/76 139/76 139/76 O2 Sat by Pulse 97 95 94 Oximetry Constitutional: comatose Eyes: non-icteric ENT: other (orally intubated, no sedation) Neck: supple Effort: normal Ascultation: Bilateral: diminished breath sounds Percussion: Bilateral: not dull Cardiovascular: irregular rhythm Gastrointestinal: normoactive bowel sounds, absent bowel sounds Integumentary: normal Extremities: no edema, pulses normal Neurologic: unable to assess CBC and BMP: 01/28/21 05:51 01/28/21 05:51 ABG, PT/INR, D-dimer: ABG ABG pH 7.406 (7.320-7.450) 01/28/21 03:29 POC ABG pCO2 57.3 mmHg (32.0-48.0) H 01/28/21 03:29 POC ABG pO2 67.1 mmHg (83-108) L 01/28/21 03:29 POC ABG HCO3 35.2 01/28/21 03:29 ABG O2 Saturation 92.9 (0-100) 01/28/21 03:29 PT/INR, D-dimer PT 14.2 Sec. (12.2-14.9) 01/28/21 10:01 INR 1.05 (0.87-1.13) 01/28/21 10:01 D-Dimer 229.34 ng/mlDDU (0-234) 01/20/21 23:20 Abnormal lab findings: Abnormal Labs 01/20/21 01/20/21 01/20/21 19:26 19:26 23:20 RBC Hgb 15.3 H Hct 45.8 H MCV 98 H MCH 33 H RDW Lymph % (Auto) 5.2 L [place] % (Auto) 10.4 H Lymph # (Auto) 0.3 L Seg Neutrophils % 82.9 H Seg Neuts % (Manual) Lymphocytes % (Manual) Lymphocytes # (Manual) INR APTT ABG pH POC ABG pCO2 POC ABG pO2 ABG Hemoglobin ABG Oxyhemoglobin ABG Potassium ABG Glucose Sodium Potassium Chloride 97.8 L Carbon Dioxide 33 H BUN Creatinine Glucose 127 H POC Glucose Calcium Phosphorus Magnesium Lactate Dehydrogenase 384 H C-Reactive Protein 2.70 H Albumin Cholesterol LDL Cholesterol Direct Arterial Blood Glucose Arterial Blood Ionized Calcium 01/21/21 01/21/21 01/21/21 00:17 05:45 05:45 RBC Hgb 15.9 H Hct 47.9 H MCV 98 H MCH 33 H RDW 15.3 H Lymph % (Auto) [place] % (Auto) Lymph # (Auto) Seg Neutrophils % Seg Neuts % (Manual) 96.0 H Lymphocytes % (Manual) 3.0 L Lymphocytes # (Manual) 0.2 L INR APTT ABG pH POC ABG pCO2 POC ABG pO2 ABG Hemoglobin ABG Oxyhemoglobin ABG Potassium ABG Glucose Sodium Potassium Chloride 96.2 L Carbon Dioxide 35 H BUN Creatinine 0.7 L Glucose 142 H POC Glucose 119 H Calcium Phosphorus Magnesium Lactate Dehydrogenase C-Reactive Protein Albumin Cholesterol 210 H LDL Cholesterol Direct 155 H Arterial Blood Glucose Arterial Blood Ionized Calcium 01/21/21 01/21/21 01/21/21 05:56 09:33 15:13 RBC Hgb Hct 45.8 H MCV 98 H MCH RDW Lymph % (Auto) [place] % (Auto) Lymph # (Auto) Seg Neutrophils % Seg Neuts % (Manual) Lymphocytes % (Manual) Lymphocytes # (Manual) INR APTT ABG pH POC ABG pCO2 POC ABG pO2 ABG Hemoglobin ABG Oxyhemoglobin ABG Potassium ABG Glucose Sodium Potassium Chloride Carbon Dioxide BUN Creatinine Glucose POC Glucose 147 H 153 H Calcium Phosphorus Magnesium Lactate Dehydrogenase C-Reactive Protein Albumin Cholesterol LDL Cholesterol Direct Arterial Blood Glucose Arterial Blood Ionized Calcium 01/21/21 01/21/21 01/22/21 15:13 16:33 01:53 RBC Hgb Hct MCV MCH RDW Lymph % (Auto) [place] % (Auto) Lymph # (Auto) Seg Neutrophils % Seg Neuts % (Manual) Lymphocytes % (Manual) Lymphocytes # (Manual) INR 1.14 H APTT ABG pH POC ABG pCO2 POC ABG pO2 ABG Hemoglobin ABG Oxyhemoglobin ABG Potassium ABG Glucose Sodium Potassium Chloride Carbon Dioxide BUN Creatinine Glucose POC Glucose 126 H 112 H Calcium Phosphorus Magnesium Lactate Dehydrogenase C-Reactive Protein Albumin Cholesterol LDL Cholesterol Direct Arterial Blood Glucose Arterial Blood Ionized Calcium 01/22/21 01/22/21 01/22/21 06:06 12:05 16:51 RBC Hgb Hct MCV MCH RDW Lymph % (Auto) [place] % (Auto) Lymph # (Auto) Seg Neutrophils % Seg Neuts % (Manual) Lymphocytes % (Manual) Lymphocytes # (Manual) INR APTT ABG pH POC ABG pCO2 POC ABG pO2 ABG Hemoglobin ABG Oxyhemoglobin ABG Potassium ABG Glucose Sodium Potassium Chloride Carbon Dioxide BUN Creatinine Glucose POC Glucose 107 H 121 H 164 H Calcium Phosphorus Magnesium Lactate Dehydrogenase C-Reactive Protein Albumin Cholesterol LDL Cholesterol Direct Arterial Blood Glucose Arterial Blood Ionized Calcium 01/22/21 01/23/21 01/23/21 23:10 05:39 06:08 RBC Hgb Hct MCV 101 H MCH 33 H RDW Lymph % (Auto) [place] % (Auto) Lymph # (Auto) Seg Neutrophils % Seg Neuts % (Manual) Lymphocytes % (Manual) Lymphocytes # (Manual) INR APTT ABG pH POC ABG pCO2 POC ABG pO2 ABG Hemoglobin ABG Oxyhemoglobin ABG Potassium ABG Glucose Sodium Potassium Chloride Carbon Dioxide BUN Creatinine Glucose POC Glucose 143 H 150 H Calcium Phosphorus Magnesium Lactate Dehydrogenase C-Reactive Protein Albumin Cholesterol LDL Cholesterol Direct Arterial Blood Glucose Arterial Blood Ionized Calcium 01/23/21 01/23/21 01/23/21 11:27 13:55 17:54 RBC Hgb Hct MCV MCH RDW Lymph % (Auto) [place] % (Auto) Lymph # (Auto) Seg Neutrophils % Seg Neuts % (Manual) Lymphocytes % (Manual) Lymphocytes # (Manual) INR APTT ABG pH 7.249 L POC ABG pCO2 83.0 H POC ABG pO2 82.8 L ABG Hemoglobin ABG Oxyhemoglobin ABG Potassium 4.8 H ABG Glucose 236 H Sodium Potassium Chloride Carbon Dioxide 33 H BUN 32 H Creatinine 1.6 H D Glucose 146 H POC Glucose 218 H Calcium 8.3 L Phosphorus Magnesium 3.00 H Lactate Dehydrogenase C-Reactive Protein Albumin 3.2 L Cholesterol LDL Cholesterol Direct Arterial Blood Glucose 236 H Arterial Blood Ionized Calcium 4.5 L 01/23/21 01/24/21 01/24/21 17:54 03:11 04:56 RBC Hgb Hct MCV 100 H MCH RDW 15.4 H Lymph % (Auto) [place] % (Auto) Lymph # (Auto) Seg Neutrophils % Seg Neuts % (Manual) Lymphocytes % (Manual) Lymphocytes # (Manual) INR APTT ABG pH POC ABG pCO2 POC ABG pO2 ABG Hemoglobin ABG Oxyhemoglobin ABG Potassium ABG Glucose Sodium Potassium Chloride Carbon Dioxide BUN Creatinine Glucose POC Glucose 131 H Calcium Phosphorus 2.00 L Magnesium Lactate Dehydrogenase C-Reactive Protein Albumin Cholesterol LDL Cholesterol Direct Arterial Blood Glucose Arterial Blood Ionized Calcium 01/24/21 01/24/21 01/24/21 04:56 05:00 05:47 RBC Hgb Hct MCV MCH RDW Lymph % (Auto) [place] % (Auto) Lymph # (Auto) Seg Neutrophils % Seg Neuts % (Manual) Lymphocytes % (Manual) Lymphocytes # (Manual) INR APTT ABG pH 7.473 H POC ABG pCO2 POC ABG pO2 53.9 L ABG Hemoglobin ABG Oxyhemoglobin 90.0 L ABG Potassium ABG Glucose 127 H Sodium 147 H D Potassium Chloride Carbon Dioxide 36 H BUN 33 H Creatinine 1.5 H Glucose 128 H POC Glucose 141 H Calcium 8.3 L Phosphorus Magnesium Lactate Dehydrogenase C-Reactive Protein Albumin Cholesterol LDL Cholesterol Direct Arterial Blood Glucose 127 H Arterial Blood Ionized Calcium 4.5 L 01/24/21 01/24/21 01/25/21 08:44 11:27 03:57 RBC Hgb Hct MCV MCH RDW Lymph % (Auto) [place] % (Auto) Lymph # (Auto) Seg Neutrophils % Seg Neuts % (Manual) Lymphocytes % (Manual) Lymphocytes # (Manual) INR APTT ABG pH 7.515 H POC ABG pCO2 POC ABG pO2 70.5 L ABG Hemoglobin ABG Oxyhemoglobin ABG Potassium ABG Glucose 150 H Sodium Potassium Chloride Carbon Dioxide BUN Creatinine Glucose POC Glucose 127 H Calcium Phosphorus 1.40 L D Magnesium 2.90 H Lactate Dehydrogenase C-Reactive Protein Albumin Cholesterol LDL Cholesterol Direct Arterial Blood Glucose 150 H Arterial Blood Ionized Calcium 4.4 L 01/25/21 01/25/21 01/25/21 04:35 04:35 05:07 RBC Hgb Hct MCV 97 H MCH RDW 15.3 H Lymph % (Auto) [place] % (Auto) Lymph # (Auto) Seg Neutrophils % Seg Neuts % (Manual) Lymphocytes % (Manual) Lymphocytes # (Manual) INR APTT ABG pH POC ABG pCO2 POC ABG pO2 ABG Hemoglobin ABG Oxyhemoglobin ABG Potassium ABG Glucose Sodium 147 H Potassium 3.5 L D Chloride Carbon Dioxide 37 H BUN 34 H Creatinine Glucose 127 H POC Glucose 117 H Calcium 8.1 L Phosphorus Magnesium Lactate Dehydrogenase C-Reactive Protein Albumin Cholesterol LDL Cholesterol Direct Arterial Blood Glucose Arterial Blood Ionized Calcium 01/25/21 01/25/21 01/25/21 11:15 12:39 17:37 RBC Hgb Hct MCV MCH RDW Lymph % (Auto) [place] % (Auto) Lymph # (Auto) Seg Neutrophils % Seg Neuts % (Manual) Lymphocytes % (Manual) Lymphocytes # (Manual) INR APTT ABG pH POC ABG pCO2 POC ABG pO2 ABG Hemoglobin ABG Oxyhemoglobin ABG Potassium ABG Glucose Sodium Potassium Chloride Carbon Dioxide BUN Creatinine Glucose POC Glucose 147 H 143 H 142 H Calcium Phosphorus Magnesium Lactate Dehydrogenase C-Reactive Protein Albumin Cholesterol LDL Cholesterol Direct Arterial Blood Glucose Arterial Blood Ionized Calcium 01/25/21 01/26/21 01/26/21 23:08 03:44 04:30 RBC Hgb Hct MCV MCH RDW Lymph % (Auto) [place] % (Auto) Lymph # (Auto) Seg Neutrophils % Seg Neuts % (Manual) Lymphocytes % (Manual) Lymphocytes # (Manual) INR APTT ABG pH POC ABG pCO2 49.5 H POC ABG pO2 ABG Hemoglobin ABG Oxyhemoglobin ABG Potassium ABG Glucose 153 H Sodium 149 H Potassium Chloride Carbon Dioxide 39 H BUN 35 H Creatinine Glucose 141 H POC Glucose 139 H Calcium 8.3 L Phosphorus Magnesium Lactate Dehydrogenase C-Reactive Protein Albumin Cholesterol LDL Cholesterol Direct Arterial Blood Glucose 153 H Arterial Blood Ionized Calcium 4.5 L 01/26/21 01/26/21 01/26/21 05:31 11:35 12:11 RBC Hgb Hct MCV MCH RDW Lymph % (Auto) [place] % (Auto) Lymph # (Auto) Seg Neutrophils % Seg Neuts % (Manual) Lymphocytes % (Manual) Lymphocytes # (Manual) INR APTT ABG pH POC ABG pCO2 POC ABG pO2 ABG Hemoglobin ABG Oxyhemoglobin ABG Potassium ABG Glucose Sodium Potassium Chloride Carbon Dioxide BUN Creatinine Glucose POC Glucose 143 H 145 H 161 H Calcium Phosphorus Magnesium Lactate Dehydrogenase C-Reactive Protein Albumin Cholesterol LDL Cholesterol Direct Arterial Blood Glucose Arterial Blood Ionized Calcium 01/26/21 01/26/21 01/26/21 12:12 18:01 23:22 RBC Hgb Hct MCV MCH RDW Lymph % (Auto) [place] % (Auto) Lymph # (Auto) Seg Neutrophils % Seg Neuts % (Manual) Lymphocytes % (Manual) Lymphocytes # (Manual) INR APTT ABG pH POC ABG pCO2 POC ABG pO2 ABG Hemoglobin ABG Oxyhemoglobin ABG Potassium ABG Glucose Sodium Potassium Chloride Carbon Dioxide BUN Creatinine Glucose POC Glucose 163 H 151 H 143 H Calcium Phosphorus Magnesium Lactate Dehydrogenase C-Reactive Protein Albumin Cholesterol LDL Cholesterol Direct Arterial Blood Glucose Arterial Blood Ionized Calcium 01/27/21 01/27/21 01/27/21 04:00 05:24 06:43 RBC 3.45 L Hgb 11.1 L Hct 34.4 L MCV 100 H MCH RDW Lymph % (Auto) [place] % (Auto) Lymph # (Auto) Seg Neutrophils % Seg Neuts % (Manual) Lymphocytes % (Manual) Lymphocytes # (Manual) INR APTT ABG pH POC ABG pCO2 59.3 H POC ABG pO2 73.4 L ABG Hemoglobin ABG Oxyhemoglobin 93.2 L ABG Potassium ABG Glucose 178 H Sodium Potassium Chloride Carbon Dioxide BUN Creatinine Glucose POC Glucose 152 H Calcium Phosphorus Magnesium Lactate Dehydrogenase C-Reactive Protein Albumin Cholesterol LDL Cholesterol Direct Arterial Blood Glucose 178 H Arterial Blood Ionized Calcium 4.4 L 01/27/21 01/27/21 01/27/21 06:43 11:35 16:39 RBC Hgb Hct MCV MCH RDW Lymph % (Auto) [place] % (Auto) Lymph # (Auto) Seg Neutrophils % Seg Neuts % (Manual) Lymphocytes % (Manual) Lymphocytes # (Manual) INR APTT ABG pH POC ABG pCO2 POC ABG pO2 ABG Hemoglobin ABG Oxyhemoglobin ABG Potassium ABG Glucose Sodium 148 H Potassium Chloride Carbon Dioxide 40 H BUN 40 H Creatinine Glucose 166 H POC Glucose 146 H 168 H Calcium Phosphorus Magnesium Lactate Dehydrogenase C-Reactive Protein Albumin Cholesterol LDL Cholesterol Direct Arterial Blood Glucose Arterial Blood Ionized Calcium 01/27/21 01/28/21 01/28/21 23:14 03:29 04:51 RBC Hgb Hct MCV MCH RDW Lymph % (Auto) [place] % (Auto) Lymph # (Auto) Seg Neutrophils % Seg Neuts % (Manual) Lymphocytes % (Manual) Lymphocytes # (Manual) INR APTT ABG pH POC ABG pCO2 57.3 H POC ABG pO2 67.1 L ABG Hemoglobin 11.8 L ABG Oxyhemoglobin 91.5 L ABG Potassium ABG Glucose 172 H Sodium Potassium Chloride Carbon Dioxide BUN Creatinine Glucose POC Glucose 140 H 166 H Calcium Phosphorus Magnesium Lactate Dehydrogenase C-Reactive Protein Albumin Cholesterol LDL Cholesterol Direct Arterial Blood Glucose 172 H Arterial Blood Ionized Calcium 4.4 L 01/28/21 01/28/21 01/28/21 05:51 05:51 10:01 RBC 3.39 L Hgb 11.1 L Hct 33.9 L MCV 100 H MCH 33 H RDW Lymph % (Auto) [place] % (Auto) Lymph # (Auto) Seg Neutrophils % Seg Neuts % (Manual) Lymphocytes % (Manual) Lymphocytes # (Manual) INR APTT 42.8 H ABG pH POC ABG pCO2 POC ABG pO2 ABG Hemoglobin ABG Oxyhemoglobin ABG Potassium ABG Glucose Sodium Potassium Chloride Carbon Dioxide 36 H BUN 46 H Creatinine 1.4 H Glucose 157 H POC Glucose Calcium Phosphorus Magnesium Lactate Dehydrogenase C-Reactive Protein Albumin Cholesterol LDL Cholesterol Direct Arterial Blood Glucose Arterial Blood Ionized Calcium Allied health notes reviewed: nursing
--- NOTE | 2021-01-28 11:33 | Progress Note ---
Assessment and Plan Assessment and plan: This is a 65-year-old male with atrial fibrillation on Eliquis, hypertension, and diabetes who is admitted with suspected pneumonia, acute hypoxic respiratory failure, COVID-19 PUI, CVA and with hypertensive urgency Acute hypoxic respiratory failure REmote Right MCA CVA Shock/hypotension Seizure Right middle and lower lobe pneumonia Acute metabolic encephalopathy Hypertensive urgency Type 2 diabetes Atrial fibrillation Hypernatremia Hyperchloremia -[facility], cardiology, neurology consulted, appreciate recommendations -01/20 CT head shows a well-defined area of decreased attenuation in the right parietal lobe, limited imagery secondary to artifact. MRI brain recommended for further work-up -01/20 CT chest shows possible mild inflammatory process in the right middle and right lower lobe -01/20 MRI brain pending -01/23 CT head shows no acute focal parenchymal lesion in the brain, no change to right middle frontal gyrus chronic ischemia -01/23 CXR shows right infrahilar opacity consistent with large areas of atelectasis of the right middle or lower lobe. 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 -01/23 EEG pending -01/26 CT head shows remote right MCA -Intubated 01/23 -VAP bundle, wean mechanical ventilation as tolerated -s/p IV antibiotics -Aspirin, Lipitor -Sedated with propofol -s/p vasopressor support with Levophed -Hold antihypertensive regimen and setting of needing vasopressor support, resume as tolerated -Neurochecks per protocol -Accu-Cheks every 6, SSI -Seizure precautions -Tube feedings -Trend BMP, CBC DVT/GI prophylaxis: Heparin subcu, PPIm SCDs to BLE while in bed Disposition: ICU The high probability of a clinically significant, sudden or life threatening deterioration of the [Respiratory, neuro, metabolic, infectious,] system(s) required my full and direct attention, intervention and personal management. The aggregate critical care time was [34] minutes. This time is in addition to time spent performing reported procedures but includes the following: [x] Data Review and interpretation [x] Patient assessment and monitoring of vital signs [x] Documentation [x] Medication orders and management History Interval history: This is a 65-year-old male with atrial fibrillation on Eliquis, hypertension, and diabetes who presents to the emergency on 01/20 with complaints of progressive generalized weakness, gait unsteadiness, cough and fever. Upon EMS arrival patient was febrile with a temperature of 102 and hypoxic with SPO2 in the 70s on room air. Work-up in the emergency department included a CT scan of his chest which showed possible mild inflammatory process in his right middle and lower lobe, CT head was admitted secondary to artifact but noted a low- density area in the right parietal lobe. Patient was admitted to the hospitalist service with suspected pneumonia, acute hypoxic respiratory failure, COVID-19 PUI, rule out CVA and with hypertensive urgency. Neurology was consulted. 01/22/2021; neuro work-up is in progress, follow PT OT eval. Neurology consult, continue antibiotics and supportive care 01/23/2021; patient went into acute respiratory failure requiring intubation and ventilatory support. Patient is transferred to ICU, pulmonary critical consulted, hypotensive started on Levophed. Pulmonary critical, cardiology and neurology following the patient. updated by Dr. Cho 01/24: Patient is awaiting further neuro imaging and is restrained the time my examination. Patient is not sedated and on assist control tidal volume 500, rate of 24, PEEP of 8 on FiO2 70%. Patient is severely agitated and is started on propofol drip per [facility]. He has hypophosphatemia today which was repleted. We will repeat BMP and phosphate level in the a.m. 01/25: Patient has hypokalemia today which was repleted today. Cr decreased to 1.2 from 1.5. Hypophosphatemia is resolved. Awaiting MRI brain. Sedated with propofol and on AC TV 500, R 20, PEEP 10, on FiO2 80%. Levophed was off at the time of my examination. Awaiting MRI . 01/26: The time my examination patient is sedated on propofol and this morning he has worsening hypernatremia and creatinine. The time examination patient is on assist control tidal volume 500, rate of 16, PEEP of 10 and 80% FiO2. Patient will follow commands with sedation vacation. Neurology ordered a repeat CT head bleed to assess if patient can be restarted on p.o. anticoagulation. We will increase the water flushes. 01/27: CTH obtained yesterday shows evidence of remote right MCA infarct. Patient remains sedated with Propofol and on MV AC TV 500, R 16, PEEP 10 and FiO2 80%. Bowel regimen started, will continue to trend CBC/BMP. 01/28 Patient with acute respiratory failure, afib, hypertension. Remote right MCA stroke seen on CT Head done on 01/26. Neurology following. Completed Rocephin and Zithromax for pneumonia History Interval history: This is a 65-year-old male with atrial fibrillation on Eliquis, hypertension, and diabetes who is admitted with pneumonia, acute hypoxic respiratory failure, CVA and with hypertensive urgency he is still intubated, on vent Fever Hospitalist Physical - Physical exam Narrative exam: General appearance: Present: no acute distress, obese, other (sedated on mechanical ventilation) - EENT Eyes: Present: PERRL ENT: clear oral mucosa - Neck Neck: Present: normal ROM - Respiratory Respiratory effort: normal Respiratory: bilateral: diminished - Cardiovascular Rhythm: regular Heart Sounds: Present: S1 & S2. Absent: systolic murmur, diastolic murmur - Extremities Extremities: no ischemia, pulses intact, pulses symmetrical, No edema, normal temperature, normal color Peripheral Pulses: within normal limits - Abdominal General gastrointestinal: soft, non-tender, non-distended, normal bowel sounds - Integumentary Integumentary: Present: warm, dry - Psychiatric Psychiatric: cooperative, agitated - Neurologic Neurologic: moves all extremities - Allied Health Allied health notes reviewed: nursing, RT - Constitutional Vitals: Temp Pulse Resp BP Pulse Ox 100.5 F H 89 14 124/70 97 01/28/21 08:00 01/28/21 08:31 01/28/21 08:31 01/28/21 11:17 01/28/21 11:17 General appearance: Present: no acute distress, obese, other (sedated on mechanical ventilation) HEART Score - HEART Score Troponin: Troponin T < 0.010 ng/mL (0.00-0.029) 01/20/21 19:26 Results - Labs CBC & Chem 7: 01/28/21 05:51 01/28/21 10:01 Labs: Laboratory Last Values WBC 8.0 K/mm3 (4.5-11.0) 01/28/21 05:51 RBC 3.39 M/mm3 (3.65-5.03) L 01/28/21 05:51 Hgb 11.1 gm/dl (11.8-15.2) L 01/28/21 05:51 Hct 33.9 % (35.5-45.6) L 01/28/21 05:51 MCV 100 fl (84-94) H 01/28/21 05:51 MCH 33 pg (28-32) H 01/28/21 05:51 MCHC 33 % (32-34) 01/28/21 05:51 RDW 15.1 % (13.2-15.2) 01/28/21 05:51 Plt Count 192 K/mm3 (140-440) 01/28/21 05:51 Lymph % (Auto) 5.2 % (13.4-35.0) L 01/20/21 19:26 [place] % (Auto) 10.4 % (0.0-7.3) H 01/20/21 19:26 Eos % (Auto) 0.5 % (0.0-4.3) 01/20/21 19:26 Baso % (Auto) 1.0 % (0.0-1.8) 01/20/21 19:26 Lymph # (Auto) 0.3 K/mm3 (1.2-5.4) L 01/20/21 19:26 [place] # (Auto) 0.7 K/mm3 (0.0-0.8) 01/20/21 19:26 Eos # (Auto) 0.0 K/mm3 (0.0-0.4) 01/20/21 19:26 Baso # (Auto) 0.1 K/mm3 (0.0-0.1) 01/20/21 19:26 Add Manual Diff Complete 01/21/21 05:45 Total Counted 100 01/21/21 05:45 Seg Neutrophils % Hydrochloric Acid Operator 01/21/21 05:45 Seg Neuts % (Manual) 96.0 % (40.0-70.0) H 01/21/21 05:45 Lymphocytes % (Manual) 3.0 % (13.4-35.0) L 01/21/21 05:45 Monocytes % (Manual) 1.0 % (0.0-7.3) 01/21/21 05:45 Nucleated RBC % Not Reportable 01/21/21 05:45 Seg Neutrophils # 5.3 K/mm3 (1.8-7.7) 01/20/21 19:26 Seg Neutrophils # Man 6.8 K/mm3 (1.8-7.7) 01/21/21 05:45 Band Neutrophils # 0.0 K/mm3 01/21/21 05:45 Lymphocytes # (Manual) 0.2 K/mm3 (1.2-5.4) L 01/21/21 05:45 Abs React Lymphs (Man) 0.0 K/mm3 01/21/21 05:45 Monocytes # (Manual) 0.1 K/mm3 (0.0-0.8) 01/21/21 05:45 Eosinophils # (Manual) 0.0 K/mm3 (0.0-0.4) 01/21/21 05:45 Basophils # (Manual) 0.0 K/mm3 (0.0-0.1) 01/21/21 05:45 Metamyelocytes # 0.0 K/mm3 01/21/21 05:45 Myelocytes # 0.0 K/mm3 01/21/21 05:45 Promyelocytes # 0.0 K/mm3 01/21/21 05:45 Blast Cells # 0.0 K/mm3 01/21/21 05:45 WBC Morphology Not Reportable 01/21/21 05:45 Hypersegmented Neuts Not Reportable 01/21/21 05:45 Hyposegmented Neuts Not Reportable 01/21/21 05:45 Hypogranular Neuts Not Reportable 01/21/21 05:45 Smudge Cells Not Reportable 01/21/21 05:45 Toxic Granulation Not Reportable 01/21/21 05:45 Toxic Vacuolation Not Reportable 01/21/21 05:45 Dohle Bodies Not Reportable 01/21/21 05:45 Pelger-Huet Anomaly Not Reportable 01/21/21 05:45 Masood Rods Not Reportable 01/21/21 05:45 Platelet Estimate Consistent w auto 01/21/21 05:45 Clumped Platelets Not Reportable 01/21/21 05:45 Plt Clumps, EDTA Not Reportable 01/21/21 05:45 Large Platelets Not Reportable 01/21/21 05:45 Giant Platelets Not Reportable 01/21/21 05:45 Platelet Satelliting Not Reportable 01/21/21 05:45 Plt Morphology Comment Not Reportable 01/21/21 05:45 RBC Morphology Normal 01/21/21 05:45 Dimorphic RBCs Not Reportable 01/21/21 05:45 Polychromasia Not Reportable 01/21/21 05:45 Hypochromasia Not Reportable 01/21/21 05:45 Poikilocytosis Not Reportable 01/21/21 05:45 Anisocytosis Not Reportable 01/21/21 05:45 Microcytosis Not Reportable 01/21/21 05:45 Macrocytosis Not Reportable 01/21/21 05:45 Spherocytes Not Reportable 01/21/21 05:45 Pappenheimer Bodies Not Reportable 01/21/21 05:45 Sickle Cells Not Reportable 01/21/21 05:45 Target Cells Not Reportable 01/21/21 05:45 Tear Drop Cells Not Reportable 01/21/21 05:45 Ovalocytes Not Reportable 01/21/21 05:45 Helmet Cells Not Reportable 01/21/21 05:45 [place] Bodies Not Reportable 01/21/21 05:45 [place] Rings Not Reportable 01/21/21 05:45 [place] Cells Not Reportable 01/21/21 05:45 Bite Cells Not Reportable 01/21/21 05:45 Crenated Cell Not Reportable 01/21/21 05:45 Elliptocytes Not Reportable 01/21/21 05:45 Acanthocytes (Spur) Not Reportable 01/21/21 05:45 Rouleaux Not Reportable 01/21/21 05:45 Hemoglobin C Crystals Not Reportable 01/21/21 05:45 Schistocytes Not Reportable 01/21/21 05:45 Malaria parasites Not Reportable 01/21/21 05:45 Roney Bodies Not Reportable 01/21/21 05:45 Hem Pathologist Commnt No 01/21/21 05:45 PT 14.2 Sec. (12.2-14.9) 01/28/21 10:01 INR 1.05 (0.87-1.13) 01/28/21 10:01 APTT 42.8 Sec. (24.2-36.6) H 01/28/21 10:01 D-Dimer 229.34 ng/mlDDU (0-234) 01/20/21 23:20 ABG pH 7.406 (7.320-7.450) 01/28/21 03:29 POC ABG pCO2 57.3 mmHg (32.0-48.0) H 01/28/21 03:29 POC ABG pO2 67.1 mmHg (83-108) L 01/28/21 03:29 POC ABG HCO3 35.2 01/28/21 03:29 ABG O2 Saturation 92.9 (0-100) 01/28/21 03:29 POC ABG Base Excess 8.8 01/28/21 03:29 ABG Hemoglobin 11.8 (12.0-17.5) L 01/28/21 03:29 ABG Oxyhemoglobin 91.5 (94-98) L 01/28/21 03:29 ABG Methemoglobin 0.3 (0.0-1.5) 01/28/21 03:29 ABG Sodium 139.7 mmol/L (136.0-145.0) 01/28/21 03:29 ABG Potassium 3.8 mmol/L (3.40-4.50) 01/28/21 03:29 ABG Chloride 101.0 mmol/L (98-107) 01/28/21 03:29 ABG Glucose 172 mg/dL (65-95) H 01/28/21 03:29 Carboxyhemoglobin 1.2 (0.5-1.5) 01/28/21 03:29 FiO2 % 75.0 01/28/21 03:29 Sodium 143 mmol/L (137-145) 01/28/21 05:51 Potassium 3.9 mmol/L (3.6-5.0) 01/28/21 05:51 Chloride 100.0 mmol/L (98-107) 01/28/21 05:51 Carbon Dioxide 36 mmol/L (22-30) H 01/28/21 05:51 Anion Gap 11 mmol/L 01/28/21 05:51 BUN 46 mg/dL (9-20) H 01/28/21 05:51 Creatinine 1.4 mg/dL (0.8-1.3) H 01/28/21 05:51 Estimated GFR > 60 ml/min 01/28/21 05:51 BUN/Creatinine Ratio 33 % 01/28/21 05:51 Glucose 157 mg/dL (75-100) H 01/28/21 05:51 POC Glucose 157 mg/dL (70-105) H 01/28/21 11:14 Lactic Acid 1.50 mmol/L (0.7-2.0) 01/20/21 19:26 Calcium 8.6 mg/dL (8.4-10.2) 01/28/21 05:51 Phosphorus 2.50 mg/dL (2.5-4.5) D 01/25/21 09:40 Magnesium 2.90 mg/dL (1.7-2.3) H 01/24/21 08:44 Ferritin 128.4 ng/mL (30.0-300.0) 01/20/21 23:20 Total Bilirubin 0.80 mg/dL (0.1-1.2) 01/23/21 17:54 AST 35 units/L (5-40) 01/23/21 17:54 ALT 31 units/L (7-56) 01/23/21 17:54 Alkaline Phosphatase 78 units/L (35-129) 01/23/21 17:54 Ammonia 58.0 umol/L (25-60) 01/22/21 14:19 Lactate Dehydrogenase 384 units/L (91-180) H 01/20/21 23:20 Troponin T < 0.010 ng/mL (0.00-0.029) 01/20/21 19:26 C-Reactive Protein 2.70 mg/dL (0.00-1.30) H 01/20/21 23:20 Total Protein 6.4 g/dL (6.3-8.2) 01/23/21 17:54 Albumin 3.2 g/dL (3.9-5) L 01/23/21 17:54 Albumin/Globulin Ratio 1.0 % 01/23/21 17:54 Triglycerides 49 mg/dL (2-149) 01/21/21 05:45 Cholesterol 210 mg/dL (50-199) H 01/21/21 05:45 LDL Cholesterol Direct 155 mg/dL (50-130) H 01/21/21 05:45 HDL Cholesterol 57 mg/dL (40-59) 01/21/21 05:45 Cholesterol/HDL Ratio 3.68 % 01/21/21 05:45 Procalcitonin 0.13 ng/mL (<0.15) 01/20/21 23:20 Arterial Blood Glucose 172 mg/dL (65-95) H 01/28/21 03:29 Arterial Blood Ionized Calcium 4.4 mg/dL (4.6-5.3) L 01/28/21 03:29 Urine Color Yellow (Yellow) 01/20/21 Unknown Urine Turbidity Clear (Clear) 01/20/21 Unknown Urine pH 6.0 (5.0-7.0) 01/20/21 Unknown Ur Specific [place] 1.022 (1.003-1.030) 01/20/21 Unknown Urine Protein >500 mg/dL (Negative) 01/20/21 Unknown Urine Glucose (UA) Neg mg/dL (Negative) 01/20/21 Unknown Urine Ketones Neg mg/dL (Negative) 01/20/21 Unknown Urine Blood Neg (Negative) 01/20/21 Unknown Urine Nitrite Neg (Negative) 01/20/21 Unknown Urine Bilirubin Neg (Negative) 01/20/21 Unknown Urine Urobilinogen < 2.0 mg/dL (<2.0) 01/20/21 Unknown Ur Leukocyte Esterase Neg (Negative) 01/20/21 Unknown Urine WBC (Auto) 1.0 /HPF (0.0-6.0) 01/20/21 Unknown Urine RBC (Auto) 4.0 /HPF (0.0-6.0) 01/20/21 Unknown U Epithel Cells (Auto) < 1.0 /HPF (0-13.0) 01/20/21 Unknown Coronavirus (PCR) Negative (Negative) 01/21/21 Unknown Microbiology: Microbiology 01/23/21 13:44 Tracheal Aspirate Sputum Culture - Final Berta Albicans Wilde/IV: Voiding Method Condom Catheter Active Medications - Current Medications Current Medications: Generic Name Dose Route Start Last Admin Trade Name Freq PRN Reason Stop Dose Admin Acetaminophen 650 mg 01/20/21 23:38 01/27/21 04:21 Acetaminophen 325 Mg Tab PO 650 mg Q4H PRN Administration Pain MILD(1-3)/Fever >100.5/[place] Acetaminophen 650 mg 01/23/21 08:23 01/24/21 05:34 Acetaminophen 650 Mg Rect Supp DE 650 mg Q4H PRN Administration Pain, Mild (1-3) IF NPO Albuterol 2.5 mg 01/20/21 23:38 Albuterol 2.5 Mg/3 Ml Nebu IH Q4HRT PRN Shortness Of Breath Lipase/Protease/Amylase 1 each 01/24/21 08:04 Lipase 10,500/Protease 25,000/Amylase 43,750 (Units) Dr Cap FEEDTUBE PRN PRN For Clogged Feeding Tube Aspirin 325 mg 01/21/21 10:00 01/28/21 09:35 Aspirin 325 Mg Tab PO 325 mg QDAY NGUYEN Administration Atorvastatin Calcium 80 mg 01/21/21 10:00 01/28/21 09:34 Atorvastatin 40 Mg Tab PO 80 mg DAILY NGUYEN Administration Dextrose 0 ml 01/20/21 23:38 Dextrose 50% In Water (25gm) 50 Ml Syringe IV Q30MIN PRN Hypoglycemia Protocol Docusate Sodium 100 mg 01/27/21 10:00 01/28/21 09:34 Docusate Sodium 100 Mg Cap PO 100 mg BID NGUYEN Administration Enoxaparin Sodium 130 mg 01/28/21 11:00 Enoxaparin 150 Mg/1 Ml Inj SUB-Q Q12HR NGUYEN Protocol Famotidine 20 mg 01/28/21 10:00 01/28/21 09:35 Famotidine 20 Mg Tab PO 20 mg BID NGUYEN Administration Fentanyl 50 mcg 01/23/21 16:00 01/24/21 10:57 Fentanyl 100 Mcg/2 Ml Inj IV 50 mcg Q2H PRN Administration Pain , Severe (7-10) Hydralazine HCl 10 mg 01/20/21 23:46 Hydralazine 20 Mg/1 Ml Inj IV Q6H PRN htn Norepinephrine 4 mg in 250 mls @ 7.5 mls/hr 01/23/21 13:00 01/25/21 06:25 Levophed Drip 4 Mg/Ns 250 Ml IV 0 mcg/min TITR NGUYEN 0 mls/hr Titration Protocol 2 MCG/MIN Propofol 1,000 mg in 100 mls @ 3.468 mls/hr 01/24/21 11:00 01/28/21 09:35 Diprivan 10 Mg/Ml IV 20 mcg/kg/min TITR NGUYEN 13.872 mls/hr Administration Protocol 5 MCG/KG/MIN Insulin Human Lispro 0 unit 01/21/21 00:00 01/28/21 05:46 Insulin Lispro 100 Unit/Ml SUB-Q 2 unit Q6HR NGUYEN Administration Protocol Lorazepam 2 mg 01/23/21 12:22 01/27/21 22:39 Lorazepam 2 Mg/Ml Vial IV 2 mg Q4H PRN Administration Agitation Ondansetron HCl 4 mg 01/20/21 23:38 Ondansetron 4 Mg/2 Ml Inj IV Q8H PRN Nausea And Vomiting Senna 8.6 mg 01/27/21 09:59 01/28/21 09:34 Sennosides 8.6 Mg Tab PO 8.6 mg Q12H PRN Administration Laxative Effect Simple Syrup 15 ml 01/24/21 08:04 Simple Syrup 15 Ml FEEDTUBE PRN PRN Hypoglycemia Simple Syrup 30 ml 01/24/21 08:04 Simple Syrup 15 Ml FEEDTUBE PRN PRN Hypoglycemia Sodium Bicarbonate 325 mg 01/24/21 08:04 Sodium Bicarbonate 325 Mg Tab FEEDTUBE PRN PRN For Clogged Feeding Tube Sodium Chloride 10 ml 01/21/21 10:00 01/28/21 09:40 Sodium Chloride 0.9% 10 Ml Flush Syringe IV 10 ml BID NGUYEN Administration Sodium Chloride 10 ml 01/20/21 23:38 Sodium Chloride 0.9% 10 Ml Flush Syringe IV PRN PRN LINE FLUSH Nutrition/Malnutrition Assess - Dietary Evaluation Nutrition/Malnutrition Findings: Nutrition Notes Start: 01/21/21 11:45 Freq: Status: Active Protocol: Document 01/24/21 07:54 (Rec: 01/24/21 08:03 [email or web address]) Nutrition Notes Need for Assessment generated from: MD Order Initial or Follow up Assessment Current Diagnosis Diabetes,Hypertension, Respiratory Failure Other Pertinent Diagnosis encephalopathy, pneu Current Diet NPO Labs/Tests Na 147 BUN 33 Cr 1.5 Pertinent Medications Levophed Height 5 ft 9 in Weight 115.6 kg [place] Body Weight (kg) 72.72 BMI 37.6 Weight Status Morbidly Obese Subjective/Other Information MD order for TF. Pt now intubated. Burn Absent Trauma Absent Current % PO Negligible Minimum of two criteria No Fluid Accumulation Mild (non-severe) #1 Nutrition Diagnosis Inadequate oral intake Etiology ARF As Evidenced by Signs and Symptoms pt on vent and unable to consume PO Is patient on ventilator? Yes Is Patient Ambulatory and/or Out of Bed No REE-([place]-confined to bed) [phone] Kcal/Kg value to use for calculation 16 Approximate Energy Requirements Using 1850 kcal/Kg Calculation Used for Recommendations Kcal/kg Additional Notes Protein: (>2.5g/kg IBW) >182g Fluid: 1 ml/kcal or per MD Nutrition Intervention Change Diet Order: Start TF Nutrition Support: Vital AF 1.2 at 65 ml/hr Flush 200 ml q4h for hypernatermia. Once resolved, flush 100 ml q4h. Kcal 1,872 Protein (gm) 117 Fluid (mL) 1,265 Goal #1 Meet at least 75% of kcal needs and 60% of protein needs via TF Anticipated Discharge Needs: Unable to determine at this time Follow-Up By: 01/28/21 Additional Comments FU for TF start and tolerance
--- NOTE | 2021-01-28 11:37 | Progress Note ---
Assessment and Plan Telemetry reviewed: Atrial fibrillation 80s. No events #A. fib with CVR * Per neurology okay to resume ZACH. Resume Eliquis 5 mg twice daily * Patient is currently rate controlled in the 80s. Continue to monitor on telemetry * Echo reviewed - mild LVH, EF 50-55%, mod pulm HTN w/RVSP 53 mmHg, mod RA enlargement, mild RV enlargement with TR, negative Bubble study. #Altered mental status in setting of acute CVA versus encephalopathy * Neurology was consulted for abnormal CT scan. MRI brain is recommended but unable to perform until patient is medically stabilized. * Currently altered mental status with recurrent seizure activity #Acute respiratory failure with hypoxia * Currently intubated and sedated #DVT prophylaxis * On Eliquis. Will discontinue heparin SQ Patient is currently stable cardiac status. Continue to monitor on telemetry. We will follow This patient was seen in conjunction with Dr Brooke Arndt agrees with assessment and plan of care - Patient Problems (1) Encephalopathy Current Visit: Yes Status: Acute (2) A-fib Current Visit: Yes Status: Acute (3) Diabetes Current Visit: Yes Status: Acute (4) Pneumonia Current Visit: Yes Status: Acute (5) Suspected 2019 novel coronavirus infection Current Visit: Yes Status: Acute Subjective Date of service: 01/28/21 Principal diagnosis: CVA Interval history: Patient resting in bed intubated and sedated Telemetry reviewed: Atrial fibrillation 80s. No events Objective Last Vital Signs Temp 100.5 F H 01/28/21 08:00 Pulse 89 01/28/21 08:31 Resp 14 01/28/21 08:31 BP 124/70 01/28/21 11:17 Pulse Ox 97 01/28/21 11:17 - Physical Examination General: Other (intubated/sedated) HEENT: Positive: Normocephaly Neck: Positive: neck supple, trachea midline Cardiac: Positive: irregularly irregular, S1/S2 Lungs: Positive: Normal Exam, Normal Breath Sounds Neuro: Positive: Other (intubated/sedated) Abdomen: Positive: Soft Skin: Negative: Rash Musculoskeletal: No Fluid Collection Extremities: Present: lower extr. pulses. Absent: edema - Labs and Meds Coagulation 01/28/21 Range/Units 10:01 PT 14.2 (12.2-14.9) Sec. INR 1.05 (0.87-1.13) APTT 42.8 H (24.2-36.6) Sec. CBC 01/28/21 Range/Units 05:51 WBC 8.0 (4.5-11.0) K/mm3 RBC 3.39 L (3.65-5.03) M/mm3 Hgb 11.1 L (11.8-15.2) gm/dl Hct 33.9 L (35.5-45.6) % Plt Count 192 (140-440) K/mm3 Comprehensive Metabolic Panel 01/28/21 Range/Units 05:51 Sodium 143 (137-145) mmol/L Potassium 3.9 (3.6-5.0) mmol/L Chloride 100.0 (98-107) mmol/L Carbon Dioxide 36 H (22-30) mmol/L BUN 46 H (9-20) mg/dL Creatinine 1.4 H (0.8-1.3) mg/dL Glucose 157 H (75-100) mg/dL Calcium 8.6 (8.4-10.2) mg/dL - Imaging and Cardiology EKG: report reviewed, image reviewed Echo: report reviewed (01/23/2021 - mild LVH, EF 50-55%, mod pulm HTN w/RVSP 53 mmHg, mod RA enlargement, mild RV enlargement with TR) - Telemetry EKG Rhythm: Atrial Fibrillation Repolarization changes or abnormalities: nonspecific abnormality, ST segment, and/or T wave - Allied health notes Allied health notes reviewed: nursing
--- NOTE | 2021-01-28 13:39 | Consultation ---
History of Present Illness - Reason for Consult Consult date: 01/28/21 - History of Present Illness 65 yo M PMHx DM2, hypertension, afib brought to the hospital complaining of generalized weakness. The patient remains intubated and sedated in the ICU, as such the history is obtained from the chart. His symptoms started on the day prior to admission and worsened leading to his presentation to hospital. He was found to be hypoxic on presentation. intermittently febrile during the admission, including today to 100.7. White count is 8, and has been normal throughout the admission. He is not currently on antibiotics. Cultures largely negative. Imaging personally reviewed: Chest CT: mild inflammatory process RML and RLL. CXR: Interstitial edema Past History Past Medical History: atrial fib, diabetes, hypertension Medications and Allergies Allergies Allergy/AdvReac Type Severity Reaction Status Date / Time No Known Allergies Allergy Unverified 01/20/21 19:59 Home Medications Medication Instructions Recorded Confirmed Last Taken Type Amlodipine Besylate [Norvasc] 10 mg PO DAILY 01/20/21 01/20/21 01/19/21 History Atorvastatin [Lipitor Tab] 80 mg PO DAILY 01/20/21 01/20/21 01/19/21 History Banophen Anti-Itch 25 mg PO DAILY 01/20/21 01/20/21 01/19/21 History Metformin HCl [metFORMIN ER 500 mg PO DAILY 01/20/21 01/20/21 01/19/21 History Osmotic] Metoprolol [Lopressor] 25 mg PO DAILY 01/20/21 01/20/21 01/19/21 History Active Meds: Active Medications Acetaminophen (Acetaminophen 325 Mg Tab) 650 mg PO Q4H PRN PRN Reason: Pain MILD(1-3)/Fever >100.5/GIBBONS Last Admin: 01/27/21 04:21 Dose: 650 mg Documented by: Acetaminophen (Acetaminophen 650 Mg Rect Supp) 650 mg IL Q4H PRN PRN Reason: Pain, Mild (1-3) IF NPO Last Admin: 01/24/21 05:34 Dose: 650 mg Documented by: Albuterol (Albuterol 2.5 Mg/3 Ml Nebu) 2.5 mg IH Q4HRT PRN PRN Reason: Shortness Of Breath Lipase/Protease/Amylase (Lipase 10,500/Protease 25,000/Amylase 43,750 (Units) Dr Anguiano) 1 each FEEDTUBE PRN PRN PRN Reason: For Clogged Feeding Tube Aspirin (Aspirin 325 Mg Tab) 325 mg PO QDAY [facility] Last Admin: 01/28/21 09:35 Dose: 325 mg Documented by: Atorvastatin Calcium (Atorvastatin 40 Mg Tab) 80 mg PO DAILY [facility] Last Admin: 01/28/21 09:34 Dose: 80 mg Documented by: Dextrose (Dextrose 50% In Water (25gm) 50 Ml Syringe) 0 ml IV Q30MIN PRN; Protocol PRN Reason: Hypoglycemia Docusate Sodium (Docusate Sodium 100 Mg Cap) 100 mg PO BID [facility] Last Admin: 01/28/21 09:34 Dose: 100 mg Documented by: Enoxaparin Sodium (Enoxaparin 150 Mg/1 Ml Inj) 130 mg SUB-Q Q12HR [facility]; Protocol Famotidine (Famotidine 20 Mg Tab) 20 mg PO BID [facility] Last Admin: 01/28/21 09:35 Dose: 20 mg Documented by: Fentanyl (Fentanyl 100 Mcg/2 Ml Inj) 50 mcg IV Q2H PRN PRN Reason: Pain , Severe (7-10) Last Admin: 01/24/21 10:57 Dose: 50 mcg Documented by: Hydralazine HCl (Hydralazine 20 Mg/1 Ml Inj) 10 mg IV Q6H PRN PRN Reason: htn Norepinephrine (Levophed Drip 4 Mg/Ns 250 Ml) 4 mg in 250 mls @ 7.5 mls/hr IV TITR NGUYEN; Protocol Last Titration: 01/25/21 06:25 Dose: 0 mcg/min, 0 mls/hr Documented by: Propofol (Diprivan 10 Mg/Ml) 1,000 mg in 100 mls @ 3.468 mls/hr IV TITR [facility]; Protocol Last Admin: 01/28/21 09:35 Dose: 20 mcg/kg/min, 13.872 mls/hr Documented by: Insulin Human Lispro (Insulin Lispro 100 Unit/Ml) 0 unit SUB-Q Q6HR [facility]; Protocol Last Admin: 01/28/21 05:46 Dose: 2 unit Documented by: Lorazepam (Lorazepam 2 Mg/Ml Vial) 2 mg IV Q4H PRN PRN Reason: Agitation Last Admin: 01/27/21 22:39 Dose: 2 mg Documented by: Ondansetron HCl (Ondansetron 4 Mg/2 Ml Inj) 4 mg IV Q8H PRN PRN Reason: Nausea And Vomiting Senna (Sennosides 8.6 Mg Tab) 8.6 mg PO Q12H PRN PRN Reason: Laxative Effect Last Admin: 01/28/21 09:34 Dose: 8.6 mg Documented by: Simple Syrup (Simple Syrup 15 Ml) 15 ml FEEDTUBE PRN PRN PRN Reason: Hypoglycemia Simple Syrup (Simple Syrup 15 Ml) 30 ml FEEDTUBE PRN PRN PRN Reason: Hypoglycemia Sodium Bicarbonate (Sodium Bicarbonate 325 Mg Tab) 325 mg FEEDTUBE PRN PRN PRN Reason: For Clogged Feeding Tube Sodium Chloride (Sodium Chloride 0.9% 10 Ml Flush Syringe) 10 ml IV BID NGUYEN Last Admin: 01/28/21 09:40 Dose: 10 ml Documented by: Sodium Chloride (Sodium Chloride 0.9% 10 Ml Flush Syringe) 10 ml IV PRN PRN PRN Reason: LINE FLUSH Review of Systems ROS unobtainable: due to endotracheal tube Physical Examination - Physical Exam Narrative exam: Physical Exam: Constitutional: intubated, sedated Head, Ears, Nose: Normocephalic, atraumatic. External ears, nose normal Eyes: Conjunctivae/corneas clear. No icterus. No ptosis. Neck: ETT Oral: ETT Cardiovascular: S1, S2 normal. Respiratory: Good air entry, clear to auscultation bilaterally GI: Soft, non-tender; bowel sounds normal. No peritoneal signs. Musculoskeletal: No pedal edema, no cyanosis. Skin: No rash or abscess Hem/Lymphatic: No palpable cervical or supraclavicular nodes. No lymphangitis Psych: Sedated, no agitation. Neurological: Sedated - Constitutional Vitals: Vital Signs Temp Pulse Resp BP Pulse Ox 100.7 F H 89 14 124/70 97 01/28/21 12:00 01/28/21 08:31 01/28/21 08:31 01/28/21 11:17 01/28/21 11:17 Temperature -Last 24 Hours Temperature 100.7 F Temperature 100.5 F Temperature 99.9 F Temperature 97.8 F Temperature 97.8 F Temperature 98.8 F Results - Labs CBC & Chem 7: 01/28/21 05:51 01/28/21 10:01 Labs: Abnormal lab results 01/27/21 01/27/21 01/28/21 Range/Units 16:39 23:14 03:29 RBC (3.65-5.03) M/mm3 Hgb (11.8-15.2) gm/dl Hct (35.5-45.6) % MCV (84-94) fl MCH (28-32) pg APTT (24.2-36.6) Sec. POC ABG pCO2 57.3 H (32.0-48.0) mmHg POC ABG pO2 67.1 L (83-108) mmHg ABG Hemoglobin 11.8 L (12.0-17.5) ABG Oxyhemoglobin 91.5 L (94-98) ABG Glucose 172 H (65-95) mg/dL Carbon Dioxide (22-30) mmol/L BUN (9-20) mg/dL Creatinine (0.8-1.3) mg/dL Glucose (75-100) mg/dL POC Glucose 168 H 140 H (70-105) mg/dL Arterial Blood Glucose 172 H (65-95) mg/dL Arterial Blood Ionized Calcium 4.4 L (4.6-5.3) mg/dL 01/28/21 01/28/21 01/28/21 Range/Units 04:51 05:51 05:51 RBC 3.39 L (3.65-5.03) M/mm3 Hgb 11.1 L (11.8-15.2) gm/dl Hct 33.9 L (35.5-45.6) % MCV 100 H (84-94) fl MCH 33 H (28-32) pg APTT (24.2-36.6) Sec. POC ABG pCO2 (32.0-48.0) mmHg POC ABG pO2 (83-108) mmHg ABG Hemoglobin (12.0-17.5) ABG Oxyhemoglobin (94-98) ABG Glucose (65-95) mg/dL Carbon Dioxide 36 H (22-30) mmol/L BUN 46 H (9-20) mg/dL Creatinine 1.4 H (0.8-1.3) mg/dL Glucose 157 H (75-100) mg/dL POC Glucose 166 H (70-105) mg/dL Arterial Blood Glucose (65-95) mg/dL Arterial Blood Ionized Calcium (4.6-5.3) mg/dL 01/28/21 01/28/21 01/28/21 Range/Units 10:01 10:01 11:14 RBC (3.65-5.03) M/mm3 Hgb (11.8-15.2) gm/dl Hct (35.5-45.6) % MCV (84-94) fl MCH (28-32) pg APTT 42.8 H (24.2-36.6) Sec. POC ABG pCO2 (32.0-48.0) mmHg POC ABG pO2 (83-108) mmHg ABG Hemoglobin (12.0-17.5) ABG Oxyhemoglobin (94-98) ABG Glucose (65-95) mg/dL Carbon Dioxide (22-30) mmol/L BUN (9-20) mg/dL Creatinine 1.4 H (0.8-1.3) mg/dL Glucose (75-100) mg/dL POC Glucose 157 H (70-105) mg/dL Arterial Blood Glucose (65-95) mg/dL Arterial Blood Ionized Calcium (4.6-5.3) mg/dL Assessment and Plan Cultures: Blood culture 01/20/2021 no growth so far Urine culture 01/20/2021 no growth so far Sputum culture 01/22/2021 Berta A/P: 65-year-old man past medical history diabetes, hypertension, A. fib presented to the hospital with weakness, now intubated, sedated with possible CVA. #Acute hypoxic respiratory failure: on the vent #Sirs/sepsis: central vs infectious etiology. Infectious workup negative so far. Given probably acute CVA with possible evolution may be central etiology #CVA #BERKLEY: worse than on admission. Recs: -Repeat blood cultures -remain off antibiotics for now -Follow up CXR -Repeat procal (may be higher than on admission given BERKLEY, will look for very high value) Thank you for the consult, we will continue to follow. MD Azra Martinez [facility] O: [phone] F: [phone]
--- NOTE | 2021-01-28 14:11 | XRay Report ---
CHEST 1 VIEW INDICATION: Hypoxemia. COMPARISON: 01/24/2021 FINDINGS: Support devices: Endotracheal tube and nasogastric tube remain in the same position. Right IJ venous catheter has been removed. Heart: Stable borderline heart size. Lungs/Pleura: There is poor inspiration. Patchy airspace disease is identified at the left lung base which could represent atelectatic changes or infiltrate. The right lung is generally clear. Right inf rahilar atelectasis has resolved. No large pleural effusion or pneumothorax. Additional findings: None. IMPRESSION: Poor inspiration. Left lower lobe airspace opacity is suspected as described. Signer Name: Helder Marks Jr, MD Signed: 01/28/2021 2:06 PM Workstation Name: [id number]
[2021-01-28] MEDS: ENOXAPARIN 150 MG/1 ML INJ SUB-Q SCH ×2 (14:40→21:47)
[2021-01-29] MEDS: INSULIN LISPRO 100 UNIT/ML SUB-Q SCH ×3 (05:27→18:27)
[2021-01-29 07:50] LABS: Hematocrit 32.4 % (35.5-45.6); Hemoglobin 10.6 gm/dl (11.8-15.2); Mean Corpuscular HGB Conc 33 % (32-34); Mean Corpuscular Volume 99 fl (84-94); Platelet Count 209 K/mm3 (140-440); Red Blood Count 3.29 M/mm3 (3.65-5.03); Red Cell Distribution Width 14.8 % (13.2-15.2)
[2021-01-29 07:57] LABS: Calcium 8.8 mg/dL (8.4-10.2)
[2021-01-29] MEDS: ENOXAPARIN 150 MG/1 ML INJ SUB-Q SCH (09:07)
[2021-01-29] MEDS: FAMOTIDINE 20 MG TAB PO SCH (09:08)
[2021-01-29] MEDS: ASPIRIN 325 MG TAB PO SCH (09:08)
[2021-01-29] MEDS: DOCUSATE SODIUM 100 MG CAP PO SCH ×3 (09:08→21:19)
[2021-01-29] MEDS: fentaNYL 100 MCG/2 ML INJ IV PRN (10:47)
[2021-01-29] MEDS ORDERED: APIXABAN 5 MG TAB PO SCH (11:00)
[2021-01-29] MEDS ORDERED: LIDOCAINE (1%) 10 MG/1 ML VIAL 20 ML MDV INFILTRATI ONE (11:00)
--- NOTE | 2021-01-29 11:03 | Progress Note ---
Assessment and Plan 65 y/o male with acute respiratory failure secondary to altered mental state from possible stroke vs worsening stroke with hypotension requiring pressors. 01/29/21: If pump is working, will obtain MRI. Will bronch patient today given increase in oxygen requirement and blood in nose and og tube. Worsening renal function now. Need to send urine lytes and obtain renal ultrasound. Guarded prognosis. Will pack nares with Affrin coated gauze. 01/28/21: Neurology has signed off. Will speak with CM about possible LTACH. They (neuro) are still asking for MRI, but not sure how this will manager exchange if they have signed off. Ok with anticoagulation and aggressive lipid control. No BM yet, BUN up to 46 but HgB has stayed the same. Will continue to monitor. 01/27/21: Stop Lasix therapy. Follow up any new neurology recs based on new head CT findings. Concern for possible bleeding given rise in BUN and drop in H/H, although patient could have been hemoconcentrated. Will start Bowel Regimen and be mindful of color of stool. No obvious bleeding has been witnessed. Continue to wean sedation for rass of 0 if possible. Wean Vent for sats >88%. I dropped FiO2 down to 75 this morning. Guarded prognosis. 01/26/21: Continue supportive measures. Agree with repeat Head CT. Sedation for patient safety but needs daily vacations. Guarded prognosis. 1. Place central line 2. Place art line 3. Vasopressor therapy 4. No sedation as of right now 5. Consider repeat CT head 6. Guarded prognosis. CCT 31 minutes. Subjective Date of service: 01/29/21 Principal diagnosis: CVA Interval history: patient now bleeding from nose and orpharynx. HgB is stable. Just started on lovenox yesterday for afib anticoagulation. BUN and Cr worse today as well but urine output is about the same. More awake today. Follows commands. Very hypoxic. Objective Vital Signs - 12hr 01/28/21 01/28/21 01/28/21 23:11 23:20 23:21 Temperature Pulse Rate 72 77 75 Pulse Rate [ From Monitor] Respiratory 16 16 16 Rate Blood Pressure 117/61 117/68 117/61 O2 Sat by Pulse 96 95 94 Oximetry 01/28/21 01/28/21 01/28/21 23:25 23:31 23:40 Temperature 99.8 F H Pulse Rate 83 72 Pulse Rate [ From Monitor] Respiratory 14 Rate Blood Pressure 117/61 117/61 O2 Sat by Pulse 94 95 Oximetry 01/28/21 01/28/21 01/29/21 23:41 23:51 00:00 Temperature Pulse Rate 77 81 82 Pulse Rate [ From Monitor] Respiratory 16 17 15 Rate Blood Pressure 117/61 117/61 117/61 O2 Sat by Pulse 95 95 95 Oximetry 01/29/21 01/29/21 01/29/21 00:10 00:20 00:30 Temperature Pulse Rate 78 83 71 Pulse Rate [ From Monitor] Respiratory 16 16 16 Rate Blood Pressure 110/68 110/68 O2 Sat by Pulse 95 96 96 Oximetry 01/29/21 01/29/21 01/29/21 00:40 00:50 01:00 Temperature Pulse Rate 78 82 74 Pulse Rate [ From Monitor] Respiratory 16 16 15 Rate Blood Pressure 110/68 110/68 110/68 O2 Sat by Pulse 95 95 96 Oximetry 01/29/21 01/29/21 01/29/21 01:10 01:20 01:30 Temperature Pulse Rate 81 76 74 Pulse Rate [ From Monitor] Respiratory 14 13 16 Rate Blood Pressure 98/65 98/65 98/65 O2 Sat by Pulse 96 96 96 Oximetry 01/29/21 01/29/21 01/29/21 01:40 01:41 01:50 Temperature Pulse Rate 64 74 68 Pulse Rate [ From Monitor] Respiratory 15 16 16 Rate Blood Pressure 98/65 98/65 O2 Sat by Pulse 97 97 97 Oximetry 01/29/21 01/29/21 01/29/21 02:00 02:10 02:20 Temperature Pulse Rate 74 79 80 Pulse Rate [ From Monitor] Respiratory 17 12 14 Rate Blood Pressure 117/63 117/63 117/63 O2 Sat by Pulse 97 95 96 Oximetry 01/29/21 01/29/21 01/29/21 02:30 02:40 02:50 Temperature Pulse Rate 82 79 82 Pulse Rate [ From Monitor] Respiratory 16 16 15 Rate Blood Pressure 117/63 117/63 117/63 O2 Sat by Pulse 96 96 96 Oximetry 01/29/21 01/29/21 01/29/21 03:00 03:10 03:20 Temperature Pulse Rate 72 83 86 Pulse Rate [ From Monitor] Respiratory 16 16 16 Rate Blood Pressure 117/63 128/65 128/65 O2 Sat by Pulse 96 96 96 Oximetry 01/29/21 01/29/21 01/29/21 03:30 03:40 03:50 Temperature Pulse Rate 80 73 87 Pulse Rate [ From Monitor] Respiratory 16 17 17 Rate Blood Pressure 128/65 128/65 128/65 O2 Sat by Pulse 96 94 89 Oximetry 01/29/21 01/29/21 01/29/21 04:00 04:10 04:20 Temperature 99.8 F H Pulse Rate 86 80 76 Pulse Rate [ From Monitor] Respiratory 16 17 15 Rate Blood Pressure 128/65 136/82 136/82 O2 Sat by Pulse 97 Oximetry 01/29/21 01/29/21 01/29/21 04:30 04:40 04:50 Temperature Pulse Rate 77 91 H 87 Pulse Rate [ From Monitor] Respiratory 15 16 17 Rate Blood Pressure 136/82 136/82 136/82 O2 Sat by Pulse 89 91 91 Oximetry 01/29/21 01/29/21 01/29/21 04:55 05:00 05:10 Temperature Pulse Rate 81 79 80 Pulse Rate [ From Monitor] Respiratory 17 17 Rate Blood Pressure 136/82 136/82 105/66 O2 Sat by Pulse 88 91 91 Oximetry 01/29/21 01/29/21 01/29/21 05:20 05:25 05:28 Temperature Pulse Rate 70 70 Pulse Rate [ From Monitor] Respiratory 16 Rate Blood Pressure 105/66 O2 Sat by Pulse 92 97 Oximetry 01/29/21 01/29/21 01/29/21 05:30 05:40 05:50 Temperature Pulse Rate 80 82 77 Pulse Rate [ From Monitor] Respiratory 17 17 16 Rate Blood Pressure 105/66 105/66 105/66 O2 Sat by Pulse 93 94 94 Oximetry 01/29/21 01/29/21 01/29/21 06:00 06:10 06:20 Temperature Pulse Rate 83 86 80 Pulse Rate [ From Monitor] Respiratory 16 18 16 Rate Blood Pressure 127/78 127/78 127/78 O2 Sat by Pulse 94 94 94 Oximetry 01/29/21 01/29/21 01/29/21 06:30 06:40 06:50 Temperature Pulse Rate 87 81 82 Pulse Rate [ From Monitor] Respiratory 17 16 17 Rate Blood Pressure 127/78 127/78 127/78 O2 Sat by Pulse 95 95 95 Oximetry 01/29/21 01/29/21 01/29/21 07:00 07:10 07:18 Temperature 100.0 F H Pulse Rate 78 85 82 Pulse Rate [ From Monitor] Respiratory 16 16 Rate Blood Pressure 127/78 124/76 124/76 O2 Sat by Pulse 95 95 96 Oximetry 01/29/21 01/29/21 01/29/21 07:20 07:30 07:40 Temperature Pulse Rate 82 84 82 Pulse Rate [ From Monitor] Respiratory 15 17 14 Rate Blood Pressure 124/76 124/76 124/76 O2 Sat by Pulse 95 95 95 Oximetry 01/29/21 01/29/21 01/29/21 07:50 08:00 08:10 Temperature Pulse Rate 86 75 78 Pulse Rate [ 75 From Monitor] Respiratory 16 17 19 Rate Blood Pressure 124/76 124/76 104/67 O2 Sat by Pulse 95 95 95 Oximetry 01/29/21 01/29/21 01/29/21 08:20 08:30 08:40 Temperature Pulse Rate 73 69 74 Pulse Rate [ From Monitor] Respiratory 16 17 16 Rate Blood Pressure 104/67 104/67 104/67 O2 Sat by Pulse 96 96 96 Oximetry 01/29/21 01/29/21 01/29/21 08:50 09:00 09:10 Temperature Pulse Rate 76 71 73 Pulse Rate [ From Monitor] Respiratory 16 16 16 Rate Blood Pressure 104/67 99/65 104/67 O2 Sat by Pulse 97 97 96 Oximetry 01/29/21 01/29/21 01/29/21 09:20 09:30 09:40 Temperature Pulse Rate 82 81 80 Pulse Rate [ From Monitor] Respiratory 16 19 18 Rate Blood Pressure 104/67 121/78 121/78 O2 Sat by Pulse 96 97 96 Oximetry 01/29/21 01/29/21 09:50 10:00 Temperature Pulse Rate 81 82 Pulse Rate [ From Monitor] Respiratory 22 18 Rate Blood Pressure 121/78 121/78 O2 Sat by Pulse 96 95 Oximetry Constitutional: comatose Eyes: non-icteric ENT: other (orally intubated, no sedation) Neck: supple Effort: normal Ascultation: Bilateral: diminished breath sounds Percussion: Bilateral: not dull Cardiovascular: irregular rhythm Gastrointestinal: normoactive bowel sounds, absent bowel sounds Integumentary: normal Extremities: no edema, pulses normal Neurologic: unable to assess CBC and BMP: 01/30/21 07:20 01/30/21 07:20 ABG, PT/INR, D-dimer: ABG ABG pH 7.350 (7.320-7.450) 01/29/21 02:52 POC ABG pCO2 72.6 mmHg (32.0-48.0) H 01/29/21 02:52 POC ABG pO2 58.0 mmHg (83-108) L 01/29/21 02:52 POC ABG HCO3 39.2 01/29/21 02:52 ABG O2 Saturation 87.2 (0-100) 01/29/21 02:52 PT/INR, D-dimer PT 14.2 Sec. (12.2-14.9) 01/28/21 10:01 INR 1.05 (0.87-1.13) 01/28/21 10:01 D-Dimer 229.34 ng/mlDDU (0-234) 01/20/21 23:20 Abnormal lab findings: Abnormal Labs 01/20/21 01/20/21 01/20/21 19:26 19:26 23:20 RBC Hgb 15.3 H Hct 45.8 H MCV 98 H MCH 33 H RDW Lymph % (Auto) 5.2 L Ocean % (Auto) 10.4 H Lymph # (Auto) 0.3 L Seg Neutrophils % 82.9 H Seg Neuts % (Manual) Lymphocytes % (Manual) Lymphocytes # (Manual) INR APTT ABG pH POC ABG pCO2 POC ABG pO2 ABG Hemoglobin ABG Oxyhemoglobin ABG Potassium ABG Glucose Sodium Potassium Chloride 97.8 L Carbon Dioxide 33 H BUN Creatinine Glucose 127 H POC Glucose Calcium Phosphorus Magnesium Lactate Dehydrogenase 384 H C-Reactive Protein 2.70 H Albumin Triglycerides Cholesterol LDL Cholesterol Direct Arterial Blood Glucose Arterial Blood Ionized Calcium 01/21/21 01/21/21 01/21/21 00:17 05:45 05:45 RBC Hgb 15.9 H Hct 47.9 H MCV 98 H MCH 33 H RDW 15.3 H Lymph % (Auto) Ocean % (Auto) Lymph # (Auto) Seg Neutrophils % Seg Neuts % (Manual) 96.0 H Lymphocytes % (Manual) 3.0 L Lymphocytes # (Manual) 0.2 L INR APTT ABG pH POC ABG pCO2 POC ABG pO2 ABG Hemoglobin ABG Oxyhemoglobin ABG Potassium ABG Glucose Sodium Potassium Chloride 96.2 L Carbon Dioxide 35 H BUN Creatinine 0.7 L Glucose 142 H POC Glucose 119 H Calcium Phosphorus Magnesium Lactate Dehydrogenase C-Reactive Protein Albumin Triglycerides Cholesterol 210 H LDL Cholesterol Direct 155 H Arterial Blood Glucose Arterial Blood Ionized Calcium 01/21/21 01/21/21 01/21/21 05:56 09:33 15:13 RBC Hgb Hct 45.8 H MCV 98 H MCH RDW Lymph % (Auto) Ocean % (Auto) Lymph # (Auto) Seg Neutrophils % Seg Neuts % (Manual) Lymphocytes % (Manual) Lymphocytes # (Manual) INR APTT ABG pH POC ABG pCO2 POC ABG pO2 ABG Hemoglobin ABG Oxyhemoglobin ABG Potassium ABG Glucose Sodium Potassium Chloride Carbon Dioxide BUN Creatinine Glucose POC Glucose 147 H 153 H Calcium Phosphorus Magnesium Lactate Dehydrogenase C-Reactive Protein Albumin Triglycerides Cholesterol LDL Cholesterol Direct Arterial Blood Glucose Arterial Blood Ionized Calcium 01/21/21 01/21/21 01/22/21 15:13 16:33 01:53 RBC Hgb Hct MCV MCH RDW Lymph % (Auto) Ocean % (Auto) Lymph # (Auto) Seg Neutrophils % Seg Neuts % (Manual) Lymphocytes % (Manual) Lymphocytes # (Manual) INR 1.14 H APTT ABG pH POC ABG pCO2 POC ABG pO2 ABG Hemoglobin ABG Oxyhemoglobin ABG Potassium ABG Glucose Sodium Potassium Chloride Carbon Dioxide BUN Creatinine Glucose POC Glucose 126 H 112 H Calcium Phosphorus Magnesium Lactate Dehydrogenase C-Reactive Protein Albumin Triglycerides Cholesterol LDL Cholesterol Direct Arterial Blood Glucose Arterial Blood Ionized Calcium 01/22/21 01/22/21 01/22/21 06:06 12:05 16:51 RBC Hgb Hct MCV MCH RDW Lymph % (Auto) Ocean % (Auto) Lymph # (Auto) Seg Neutrophils % Seg Neuts % (Manual) Lymphocytes % (Manual) Lymphocytes # (Manual) INR APTT ABG pH POC ABG pCO2 POC ABG pO2 ABG Hemoglobin ABG Oxyhemoglobin ABG Potassium ABG Glucose Sodium Potassium Chloride Carbon Dioxide BUN Creatinine Glucose POC Glucose 107 H 121 H 164 H Calcium Phosphorus Magnesium Lactate Dehydrogenase C-Reactive Protein Albumin Triglycerides Cholesterol LDL Cholesterol Direct Arterial Blood Glucose Arterial Blood Ionized Calcium 01/22/21 01/23/21 01/23/21 23:10 05:39 06:08 RBC Hgb Hct MCV 101 H MCH 33 H RDW Lymph % (Auto) Ocean % (Auto) Lymph # (Auto) Seg Neutrophils % Seg Neuts % (Manual) Lymphocytes % (Manual) Lymphocytes # (Manual) INR APTT ABG pH POC ABG pCO2 POC ABG pO2 ABG Hemoglobin ABG Oxyhemoglobin ABG Potassium ABG Glucose Sodium Potassium Chloride Carbon Dioxide BUN Creatinine Glucose POC Glucose 143 H 150 H Calcium Phosphorus Magnesium Lactate Dehydrogenase C-Reactive Protein Albumin Triglycerides Cholesterol LDL Cholesterol Direct Arterial Blood Glucose Arterial Blood Ionized Calcium 01/23/21 01/23/21 01/23/21 11:27 13:55 17:54 RBC Hgb Hct MCV MCH RDW Lymph % (Auto) Ocean % (Auto) Lymph # (Auto) Seg Neutrophils % Seg Neuts % (Manual) Lymphocytes % (Manual) Lymphocytes # (Manual) INR APTT ABG pH 7.249 L POC ABG pCO2 83.0 H POC ABG pO2 82.8 L ABG Hemoglobin ABG Oxyhemoglobin ABG Potassium 4.8 H ABG Glucose 236 H Sodium Potassium Chloride Carbon Dioxide 33 H BUN 32 H Creatinine 1.6 H D Glucose 146 H POC Glucose 218 H Calcium 8.3 L Phosphorus Magnesium 3.00 H Lactate Dehydrogenase C-Reactive Protein Albumin 3.2 L Triglycerides Cholesterol LDL Cholesterol Direct Arterial Blood Glucose 236 H Arterial Blood Ionized Calcium 4.5 L 01/23/21 01/24/21 01/24/21 17:54 03:11 04:56 RBC Hgb Hct MCV 100 H MCH RDW 15.4 H Lymph % (Auto) Ocean % (Auto) Lymph # (Auto) Seg Neutrophils % Seg Neuts % (Manual) Lymphocytes % (Manual) Lymphocytes # (Manual) INR APTT ABG pH POC ABG pCO2 POC ABG pO2 ABG Hemoglobin ABG Oxyhemoglobin ABG Potassium ABG Glucose Sodium Potassium Chloride Carbon Dioxide BUN Creatinine Glucose POC Glucose 131 H Calcium Phosphorus 2.00 L Magnesium Lactate Dehydrogenase C-Reactive Protein Albumin Triglycerides Cholesterol LDL Cholesterol Direct Arterial Blood Glucose Arterial Blood Ionized Calcium 01/24/21 01/24/21 01/24/21 04:56 05:00 05:47 RBC Hgb Hct MCV MCH RDW Lymph % (Auto) Ocean % (Auto) Lymph # (Auto) Seg Neutrophils % Seg Neuts % (Manual) Lymphocytes % (Manual) Lymphocytes # (Manual) INR APTT ABG pH 7.473 H POC ABG pCO2 POC ABG pO2 53.9 L ABG Hemoglobin ABG Oxyhemoglobin 90.0 L ABG Potassium ABG Glucose 127 H Sodium 147 H D Potassium Chloride Carbon Dioxide 36 H BUN 33 H Creatinine 1.5 H Glucose 128 H POC Glucose 141 H Calcium 8.3 L Phosphorus Magnesium Lactate Dehydrogenase C-Reactive Protein Albumin Triglycerides Cholesterol LDL Cholesterol Direct Arterial Blood Glucose 127 H Arterial Blood Ionized Calcium 4.5 L 01/24/21 01/24/21 01/25/21 08:44 11:27 03:57 RBC Hgb Hct MCV MCH RDW Lymph % (Auto) Ocean % (Auto) Lymph # (Auto) Seg Neutrophils % Seg Neuts % (Manual) Lymphocytes % (Manual) Lymphocytes # (Manual) INR APTT ABG pH 7.515 H POC ABG pCO2 POC ABG pO2 70.5 L ABG Hemoglobin ABG Oxyhemoglobin ABG Potassium ABG Glucose 150 H Sodium Potassium Chloride Carbon Dioxide BUN Creatinine Glucose POC Glucose 127 H Calcium Phosphorus 1.40 L D Magnesium 2.90 H Lactate Dehydrogenase C-Reactive Protein Albumin Triglycerides Cholesterol LDL Cholesterol Direct Arterial Blood Glucose 150 H Arterial Blood Ionized Calcium 4.4 L 01/25/21 01/25/21 01/25/21 04:35 04:35 05:07 RBC Hgb Hct MCV 97 H MCH RDW 15.3 H Lymph % (Auto) Ocean % (Auto) Lymph # (Auto) Seg Neutrophils % Seg Neuts % (Manual) Lymphocytes % (Manual) Lymphocytes # (Manual) INR APTT ABG pH POC ABG pCO2 POC ABG pO2 ABG Hemoglobin ABG Oxyhemoglobin ABG Potassium ABG Glucose Sodium 147 H Potassium 3.5 L D Chloride Carbon Dioxide 37 H BUN 34 H Creatinine Glucose 127 H POC Glucose 117 H Calcium 8.1 L Phosphorus Magnesium Lactate Dehydrogenase C-Reactive Protein Albumin Triglycerides Cholesterol LDL Cholesterol Direct Arterial Blood Glucose Arterial Blood Ionized Calcium 01/25/21 01/25/21 01/25/21 11:15 12:39 17:37 RBC Hgb Hct MCV MCH RDW Lymph % (Auto) Ocean % (Auto) Lymph # (Auto) Seg Neutrophils % Seg Neuts % (Manual) Lymphocytes % (Manual) Lymphocytes # (Manual) INR APTT ABG pH POC ABG pCO2 POC ABG pO2 ABG Hemoglobin ABG Oxyhemoglobin ABG Potassium ABG Glucose Sodium Potassium Chloride Carbon Dioxide BUN Creatinine Glucose POC Glucose 147 H 143 H 142 H Calcium Phosphorus Magnesium Lactate Dehydrogenase C-Reactive Protein Albumin Triglycerides Cholesterol LDL Cholesterol Direct Arterial Blood Glucose Arterial Blood Ionized Calcium 01/25/21 01/26/21 01/26/21 23:08 03:44 04:30 RBC Hgb Hct MCV MCH RDW Lymph % (Auto) Ocean % (Auto) Lymph # (Auto) Seg Neutrophils % Seg Neuts % (Manual) Lymphocytes % (Manual) Lymphocytes # (Manual) INR APTT ABG pH POC ABG pCO2 49.5 H POC ABG pO2 ABG Hemoglobin ABG Oxyhemoglobin ABG Potassium ABG Glucose 153 H Sodium 149 H Potassium Chloride Carbon Dioxide 39 H BUN 35 H Creatinine Glucose 141 H POC Glucose 139 H Calcium 8.3 L Phosphorus Magnesium Lactate Dehydrogenase C-Reactive Protein Albumin Triglycerides Cholesterol LDL Cholesterol Direct Arterial Blood Glucose 153 H Arterial Blood Ionized Calcium 4.5 L 01/26/21 01/26/21 01/26/21 05:31 11:35 12:11 RBC Hgb Hct MCV MCH RDW Lymph % (Auto) Ocean % (Auto) Lymph # (Auto) Seg Neutrophils % Seg Neuts % (Manual) Lymphocytes % (Manual) Lymphocytes # (Manual) INR APTT ABG pH POC ABG pCO2 POC ABG pO2 ABG Hemoglobin ABG Oxyhemoglobin ABG Potassium ABG Glucose Sodium Potassium Chloride Carbon Dioxide BUN Creatinine Glucose POC Glucose 143 H 145 H 161 H Calcium Phosphorus Magnesium Lactate Dehydrogenase C-Reactive Protein Albumin Triglycerides Cholesterol LDL Cholesterol Direct Arterial Blood Glucose Arterial Blood Ionized Calcium 01/26/21 01/26/21 01/26/21 12:12 18:01 23:22 RBC Hgb Hct MCV MCH RDW Lymph % (Auto) Ocean % (Auto) Lymph # (Auto) Seg Neutrophils % Seg Neuts % (Manual) Lymphocytes % (Manual) Lymphocytes # (Manual) INR APTT ABG pH POC ABG pCO2 POC ABG pO2 ABG Hemoglobin ABG Oxyhemoglobin ABG Potassium ABG Glucose Sodium Potassium Chloride Carbon Dioxide BUN Creatinine Glucose POC Glucose 163 H 151 H 143 H Calcium Phosphorus Magnesium Lactate Dehydrogenase C-Reactive Protein Albumin Triglycerides Cholesterol LDL Cholesterol Direct Arterial Blood Glucose Arterial Blood Ionized Calcium 01/27/21 01/27/21 01/27/21 04:00 05:24 06:43 RBC 3.45 L Hgb 11.1 L Hct 34.4 L MCV 100 H MCH RDW Lymph % (Auto) Ocean % (Auto) Lymph # (Auto) Seg Neutrophils % Seg Neuts % (Manual) Lymphocytes % (Manual) Lymphocytes # (Manual) INR APTT ABG pH POC ABG pCO2 59.3 H POC ABG pO2 73.4 L ABG Hemoglobin ABG Oxyhemoglobin 93.2 L ABG Potassium ABG Glucose 178 H Sodium Potassium Chloride Carbon Dioxide BUN Creatinine Glucose POC Glucose 152 H Calcium Phosphorus Magnesium Lactate Dehydrogenase C-Reactive Protein Albumin Triglycerides Cholesterol LDL Cholesterol Direct Arterial Blood Glucose 178 H Arterial Blood Ionized Calcium 4.4 L 01/27/21 01/27/21 01/27/21 06:43 11:35 16:39 RBC Hgb Hct MCV MCH RDW Lymph % (Auto) Ocean % (Auto) Lymph # (Auto) Seg Neutrophils % Seg Neuts % (Manual) Lymphocytes % (Manual) Lymphocytes # (Manual) INR APTT ABG pH POC ABG pCO2 POC ABG pO2 ABG Hemoglobin ABG Oxyhemoglobin ABG Potassium ABG Glucose Sodium 148 H Potassium Chloride Carbon Dioxide 40 H BUN 40 H Creatinine Glucose 166 H POC Glucose 146 H 168 H Calcium Phosphorus Magnesium Lactate Dehydrogenase C-Reactive Protein Albumin Triglycerides Cholesterol LDL Cholesterol Direct Arterial Blood Glucose Arterial Blood Ionized Calcium 01/27/21 01/28/21 01/28/21 23:14 03:29 04:51 RBC Hgb Hct MCV MCH RDW Lymph % (Auto) Ocean % (Auto) Lymph # (Auto) Seg Neutrophils % Seg Neuts % (Manual) Lymphocytes % (Manual) Lymphocytes # (Manual) INR APTT ABG pH POC ABG pCO2 57.3 H POC ABG pO2 67.1 L ABG Hemoglobin 11.8 L ABG Oxyhemoglobin 91.5 L ABG Potassium ABG Glucose 172 H Sodium Potassium Chloride Carbon Dioxide BUN Creatinine Glucose POC Glucose 140 H 166 H Calcium Phosphorus Magnesium Lactate Dehydrogenase C-Reactive Protein Albumin Triglycerides Cholesterol LDL Cholesterol Direct Arterial Blood Glucose 172 H Arterial Blood Ionized Calcium 4.4 L 01/28/21 01/28/21 01/28/21 05:51 05:51 10:01 RBC 3.39 L Hgb 11.1 L Hct 33.9 L MCV 100 H MCH 33 H RDW Lymph % (Auto) Ocean % (Auto) Lymph # (Auto) Seg Neutrophils % Seg Neuts % (Manual) Lymphocytes % (Manual) Lymphocytes # (Manual) INR APTT 42.8 H ABG pH POC ABG pCO2 POC ABG pO2 ABG Hemoglobin ABG Oxyhemoglobin ABG Potassium ABG Glucose Sodium Potassium Chloride Carbon Dioxide 36 H BUN 46 H Creatinine 1.4 H Glucose 157 H POC Glucose Calcium Phosphorus Magnesium Lactate Dehydrogenase C-Reactive Protein Albumin Triglycerides Cholesterol LDL Cholesterol Direct Arterial Blood Glucose Arterial Blood Ionized Calcium 01/28/21 01/28/21 01/28/21 10:01 11:14 17:36 RBC Hgb Hct MCV MCH RDW Lymph % (Auto) Ocean % (Auto) Lymph # (Auto) Seg Neutrophils % Seg Neuts % (Manual) Lymphocytes % (Manual) Lymphocytes # (Manual) INR APTT ABG pH POC ABG pCO2 POC ABG pO2 ABG Hemoglobin ABG Oxyhemoglobin ABG Potassium ABG Glucose Sodium Potassium Chloride Carbon Dioxide BUN Creatinine 1.4 H Glucose POC Glucose 157 H 127 H Calcium Phosphorus Magnesium Lactate Dehydrogenase C-Reactive Protein Albumin Triglycerides Cholesterol LDL Cholesterol Direct Arterial Blood Glucose Arterial Blood Ionized Calcium 01/28/21 01/29/21 01/29/21 23:18 02:52 07:03 RBC Hgb Hct MCV MCH RDW Lymph % (Auto) Ocean % (Auto) Lymph # (Auto) Seg Neutrophils % Seg Neuts % (Manual) Lymphocytes % (Manual) Lymphocytes # (Manual) INR APTT ABG pH POC ABG pCO2 72.6 H POC ABG pO2 58.0 L ABG Hemoglobin 11.6 L ABG Oxyhemoglobin 86.5 L ABG Potassium ABG Glucose 179 H Sodium Potassium Chloride 97.6 L Carbon Dioxide 36 H BUN 63 H Creatinine 1.8 H Glucose 180 H POC Glucose 146 H Calcium Phosphorus Magnesium Lactate Dehydrogenase C-Reactive Protein Albumin Triglycerides 157 H Cholesterol LDL Cholesterol Direct Arterial Blood Glucose 179 H Arterial Blood Ionized Calcium 4.4 L 01/29/21 07:03 RBC 3.29 L Hgb 10.6 L Hct 32.4 L MCV 99 H MCH RDW Lymph % (Auto) Ocean % (Auto) Lymph # (Auto) Seg Neutrophils % Seg Neuts % (Manual) Lymphocytes % (Manual) Lymphocytes # (Manual) INR APTT ABG pH POC ABG pCO2 POC ABG pO2 ABG Hemoglobin ABG Oxyhemoglobin ABG Potassium ABG Glucose Sodium Potassium Chloride Carbon Dioxide BUN Creatinine Glucose POC Glucose Calcium Phosphorus Magnesium Lactate Dehydrogenase C-Reactive Protein Albumin Triglycerides Cholesterol LDL Cholesterol Direct Arterial Blood Glucose Arterial Blood Ionized Calcium Allied health notes reviewed: nursing
--- NOTE | 2021-01-29 11:46 | Progress Note ---
Assessment and Plan Telemetry reviewed: Atrial fibrillation 80s. No events #A. fib with CVR * No AC at this point due to upper airway bleeding. Patient has been cleared to resume AC from neurology standpoint. Will resume AC once acute bleeding is resolved and okayed per oxygen system tester. * Patient is currently rate controlled in the 70s. Continue to monitor on telemetry * Echo reviewed - mild LVH, EF 50-55%, mod pulm HTN w/RVSP 53 mmHg, mod RA enlargement, mild RV enlargement with TR, negative Bubble study. #Altered mental status in setting of acute CVA versus encephalopathy * Neurology was consulted for abnormal CT scan. MRI brain is recommended but unable to perform until patient is medically stabilized. * Currently altered mental status with recurrent seizure activity #Acute respiratory failure with hypoxia * Currently intubated and sedated #DVT prophylaxis * No AC in setting of acute upper airway hemorrhage. Management per oxygen system tester. Patient is currently stable cardiac status. Continue to monitor on telemetry. We will follow This patient was seen in conjunction with Dr Brooke Arndt agrees with assessment and plan of care - Patient Problems (1) Encephalopathy Current Visit: Yes Status: Acute (2) A-fib Current Visit: Yes Status: Acute (3) Diabetes Current Visit: Yes Status: Acute (4) Pneumonia Current Visit: Yes Status: Acute (5) Suspected 2019 novel coronavirus infection Current Visit: Yes Status: Acute Subjective Date of service: 01/29/21 Principal diagnosis: CVA Interval history: Patient resting in bed intubated and sedated Telemetry reviewed: Atrial fibrillation 70s. No events Objective Last Vital Signs Temp 100.0 F H 01/29/21 07:00 Pulse 84 01/29/21 11:00 Resp 17 01/29/21 11:00 BP 130/81 01/29/21 11:00 Pulse Ox 93 01/29/21 11:00 - Physical Examination General: Other (intubated/sedated) HEENT: Positive: Normocephaly Neck: Positive: neck supple, trachea midline Cardiac: Positive: irregularly irregular, S1/S2 Lungs: Positive: Ventilated Respirations Neuro: Positive: Other (intubated/sedated) Abdomen: Positive: Soft Skin: Negative: Rash Musculoskeletal: No Fluid Collection Extremities: Present: lower extr. pulses. Absent: edema - Labs and Meds Lipids 01/29/21 Range/Units 07:03 Triglycerides 157 H (2-149) mg/dL CBC 01/29/21 Range/Units 07:03 WBC 11.0 (4.5-11.0) K/mm3 RBC 3.29 L (3.65-5.03) M/mm3 Hgb 10.6 L (11.8-15.2) gm/dl Hct 32.4 L (35.5-45.6) % Plt Count 209 (140-440) K/mm3 Comprehensive Metabolic Panel 01/29/21 Range/Units 07:03 Sodium 140 (137-145) mmol/L Potassium 4.0 (3.6-5.0) mmol/L Chloride 97.6 L (98-107) mmol/L Carbon Dioxide 36 H (22-30) mmol/L BUN 63 H (9-20) mg/dL Creatinine 1.8 H (0.8-1.3) mg/dL Glucose 180 H (75-100) mg/dL Calcium 8.8 (8.4-10.2) mg/dL - Imaging and Cardiology EKG: report reviewed, image reviewed Echo: report reviewed (01/23/2021 - mild LVH, EF 50-55%, mod pulm HTN w/RVSP 53 mmHg, mod RA enlargement, mild RV enlargement with TR) - Telemetry EKG Rhythm: Atrial Fibrillation - EKG Supraventricular dysrhythmia: atrial fibrillation Repolarization changes or abnormalities: nonspecific abnormality, ST segment, and/or T wave - Allied health notes Allied health notes reviewed: nursing
--- NOTE | 2021-01-29 12:44 | Progress Note ---
Assessment and Plan Cultures: Blood culture 01/20/2021 no growth so far Urine culture 01/20/2021 no growth so far Sputum culture 01/22/2021 Berta A/P: 65-year-old man past medical history diabetes, hypertension, A. fib presented to the hospital with weakness, now intubated, sedated with possible CVA. #Acute hypoxic respiratory failure: on the vent. Procalcitonin 0.52 in the setting of [place] #Sirs/sepsis: central vs infectious etiology. Infectious workup negative so far. Given probably acute CVA with possible evolution may be central etiology #CVA #[place]: worse than on admission. Recs: -Follow up repeat blood cultures -POssible LLL opacity, given hypoxia and fevers would do trial of cefepime to see how he responds. Likely some central component. Thank you for the consult, we will continue to follow. Maria Del Carmen Parker MD [facility] ([facility]) O: [phone] F: [phone] Subjective Date of service: 01/29/21 Principal diagnosis: CVA Interval history: Afebrile, T-max 100 degrees. White count 11. Procalcitonin 0.52. Imaging personally reviewed: Chest x-ray: Left lower lobe airspace opacity Objective - Exam Narrative Exam: Physical Exam: Constitutional: intubated Head, Ears, Nose: Normocephalic, atraumatic. Eyes: Conjunctivae/corneas clear. No icterus. No ptosis. Neck: ETT Oral: ETT Cardiovascular: S1, S2 normal. Respiratory: Good air entry, clear to auscultation bilaterally GI: Soft, non-tender; bowel sounds normal. No peritoneal signs. Musculoskeletal: No pedal edema, no cyanosis. Skin: No rash or abscess Hem/Lymphatic: No palpable cervical or supraclavicular nodes. No lymphangitis Psych: no agitation. Neurological: no agitation - Constitutional Vitals: Vital Signs Temp Pulse Resp BP Pulse Ox 100.0 F H 87 21 132/78 92 01/29/21 07:00 01/29/21 12:04 01/29/21 12:00 01/29/21 12:04 01/29/21 12:04 Temperature -Last 24 Hours Temperature 100.0 F Temperature 99.8 F Temperature 99.8 F Temperature 99.8 F Temperature 99.6 F - Labs CBC & Chem 7: 01/29/21 07:03 01/29/21 07:03 Labs: Abnormal lab results 01/28/21 01/28/21 01/29/21 Range/Units 17:36 23:18 02:52 RBC (3.65-5.03) M/mm3 Hgb (11.8-15.2) gm/dl Hct (35.5-45.6) % MCV (84-94) fl POC ABG pCO2 72.6 H (32.0-48.0) mmHg POC ABG pO2 58.0 L (83-108) mmHg ABG Hemoglobin 11.6 L (12.0-17.5) ABG Oxyhemoglobin 86.5 L (94-98) ABG Glucose 179 H (65-95) mg/dL Chloride (98-107) mmol/L Carbon Dioxide (22-30) mmol/L BUN (9-20) mg/dL Creatinine (0.8-1.3) mg/dL Glucose (75-100) mg/dL POC Glucose 127 H 146 H (70-105) mg/dL Triglycerides (2-149) mg/dL Arterial Blood Glucose 179 H (65-95) mg/dL Arterial Blood Ionized Calcium 4.4 L (4.6-5.3) mg/dL 01/29/21 01/29/21 01/29/21 Range/Units 04:53 07:03 07:03 RBC 3.29 L (3.65-5.03) M/mm3 Hgb 10.6 L (11.8-15.2) gm/dl Hct 32.4 L (35.5-45.6) % MCV 99 H (84-94) fl POC ABG pCO2 (32.0-48.0) mmHg POC ABG pO2 (83-108) mmHg ABG Hemoglobin (12.0-17.5) ABG Oxyhemoglobin (94-98) ABG Glucose (65-95) mg/dL Chloride 97.6 L (98-107) mmol/L Carbon Dioxide 36 H (22-30) mmol/L BUN 63 H (9-20) mg/dL Creatinine 1.8 H (0.8-1.3) mg/dL Glucose 180 H (75-100) mg/dL POC Glucose 146 H (70-105) mg/dL Triglycerides 157 H (2-149) mg/dL Arterial Blood Glucose (65-95) mg/dL Arterial Blood Ionized Calcium (4.6-5.3) mg/dL 01/29/21 Range/Units 11:14 RBC (3.65-5.03) M/mm3 Hgb (11.8-15.2) gm/dl Hct (35.5-45.6) % MCV (84-94) fl POC ABG pCO2 (32.0-48.0) mmHg POC ABG pO2 (83-108) mmHg ABG Hemoglobin (12.0-17.5) ABG Oxyhemoglobin (94-98) ABG Glucose (65-95) mg/dL Chloride (98-107) mmol/L Carbon Dioxide (22-30) mmol/L BUN (9-20) mg/dL Creatinine (0.8-1.3) mg/dL Glucose (75-100) mg/dL POC Glucose 162 H (70-105) mg/dL Triglycerides (2-149) mg/dL Arterial Blood Glucose (65-95) mg/dL Arterial Blood Ionized Calcium (4.6-5.3) mg/dL
[2021-01-29] MEDS: CEFEPIME/NS 2 GM/100 ML 2 GM/100 ML BAG IV SCH (13:45)
[2021-01-29] MEDS: PANTOPRAZOLE 80 MG in SODIUM CHLORIDE 0.9% 100 ML IV SCH ×2 (13:46→23:25)
--- NOTE | 2021-01-29 14:04 | Progress Note ---
Assessment and Plan This is a 65-year-old male with atrial fibrillation on Eliquis, hypertension, and diabetes who is admitted with suspected pneumonia, acute hypoxic respiratory failure, COVID-19 PUI, CVA and with hypertensive urgency Acute hypoxic respiratory failure Remote Right MCA CVA Shock/hypotension Seizure disorder Right middle and lower lobe pneumonia Acute metabolic encephalopathy Hypertensive urgency Type 2 diabetes Atrial fibrillation Hypernatremia Hyperchloremia Acute GI bleed -[facility], cardiology, neurology consulted, appreciate recommendations -01/20 CT head shows a well-defined area of decreased attenuation in the right parietal lobe, limited imagery secondary to artifact. MRI brain recommended for further work-up -01/20 CT chest shows possible mild inflammatory process in the right middle and right lower lobe -01/20 MRI brain pending -01/23 CT head shows no acute focal parenchymal lesion in the brain, no change to right middle frontal gyrus chronic ischemia -01/23/21 2d echo showed EF 50-55% -01/23 CXR shows right infrahilar opacity consistent with large areas of atelectasis of the right middle or lower lobe. 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 -01/26 CT head shows remote right MCA - EEG pending, MRI brain pending -Intubated 01/23 -VAP bundle, wean mechanical ventilation as tolerated -s/p IV antibiotics -Aspirin, Lipitor -Sedated with propofol -s/p vasopressor support with Levophed -Hold antihypertensive regimen and setting of needing vasopressor support, resume as tolerated -Neurochecks per protocol -Accu-Cheks every 6, SSI -Seizure precautions -Tube feedings -Trend BMP, CBC DVT/GI prophylaxis: Heparin subcu, PPIm SCDs to BLE while in bed Disposition: ICU The high probability of a clinically significant, sudden or life threatening deterioration of the [Respiratory, neuro, metabolic, infectious,] system(s) required my full and direct attention, intervention and personal management. The aggregate critical care time was [34] minutes. This time is in addition to time spent performing reported procedures but includes the following: [x] Data Review and interpretation [x] Patient assessment and monitoring of vital signs [x] Documentation [x] Medication orders and management Brief history: This is a 65-year-old male with atrial fibrillation on Eliquis, hypertension, and diabetes who presents to the emergency on 01/20 with complaints of progressive generalized weakness, gait unsteadiness, cough and fever. Upon EMS arrival patient was febrile with a temperature of 102 and hypoxic with SPO2 in the 70s on room air. Work-up in the emergency department included a CT scan of his chest which showed possible mild inflammatory process in his right middle and lower lobe, CT head was admitted secondary to artifact but noted a low- density area in the right parietal lobe. Patient was admitted to the hospitalist service with suspected pneumonia, acute hypoxic respiratory failure, COVID-19 PUI, rule out CVA and with hypertensive urgency. Neurology was consulted. repeat CT head on 01/28/21 showed remote right MCA infarction.. Daily clinical course: 01/22/2021; neuro work-up is in progress, follow PT OT eval. Neurology consult, continue antibiotics and supportive care 01/23/2021; patient went into acute respiratory failure requiring intubation and ventilatory support. Patient is transferred to ICU, pulmonary critical consulted, hypotensive started on Levophed. Pulmonary critical, cardiology and neurology following the patient. updated by Dr. Cho 01/24: Patient is awaiting further neuro imaging and is restrained the time my examination. Patient is not sedated and on assist control tidal volume 500, rate of 24, PEEP of 8 on FiO2 70%. Patient is severely agitated and is started on propofol drip per [facility]. He has hypophosphatemia today which was repleted. We will repeat BMP and phosphate level in the a.m. 01/25: Patient has hypokalemia today which was repleted today. Cr decreased to 1.2 from 1.5. Hypophosphatemia is resolved. Awaiting MRI brain. Sedated with propofol and on AC TV 500, R 20, PEEP 10, on FiO2 80%. Levophed was off at the time of my examination. Awaiting MRI . 01/26: The time my examination patient is sedated on propofol and this morning he has worsening hypernatremia and creatinine. The time examination patient is on assist control tidal volume 500, rate of 16, PEEP of 10 and 80% FiO2. Patient will follow commands with sedation vacation. Neurology ordered a repeat CT head bleed to assess if patient can be restarted on p.o. anticoagulation. We will increase the water flushes. 01/27: CTH obtained yesterday shows evidence of remote right MCA infarct. Patient remains sedated with Propofol and on MV AC TV 500, R 16, PEEP 10 and FiO2 80%. Bowel regimen started, will continue to trend CBC/BMP. 01/28 Patient with acute respiratory failure, afib, hypertension. Remote right MCA stroke seen on CT Head done on 01/26. Neurology following. Completed Rocephin and Zithromax for pneumonia 01/29: patient noted to have coffee-ground emesis today, hold any heparin product and aspirin. Started on Protonix drip. Monitor H&H every 8 hours consulted GI. Hold tube feeding for now. Subjective Date of service: 01/29/21 Principal diagnosis: CVA Interval history: Patient seen and examined. Medical records and medication list reviewed. No acute event overnight noted by the RN. Patient on MV, sedated Discussed plan of care at bedside with patient's RN. Objective - Exam Narrative Exam: - Physical exam Narrative exam: General appearance: Present: no acute distress, obese, other (sedated on mechanical ventilation) - EENT Eyes: Present: PERRL ENT: clear oral mucosa - Neck Neck: Present: normal ROM - Respiratory Respiratory effort: normal Respiratory: bilateral: diminished - Cardiovascular Rhythm: regular Heart Sounds: Present: S1 & S2. Absent: systolic murmur, diastolic murmur - Extremities Extremities: no ischemia, pulses intact, pulses symmetrical, No edema, normal temperature, normal color Peripheral Pulses: within normal limits - Abdominal General gastrointestinal: soft, non-tender, non-distended, normal bowel sounds - Integumentary Integumentary: Present: warm, dry - Psychiatric Psychiatric: cooperative, agitated - Neurologic Neurologic: moves all extremities - Allied Health Allied health notes reviewed: nursing, RT - Constitutional Vitals: Vital Signs - 12hr 01/29/21 01/29/21 01/29/21 02:00 02:10 02:20 Temperature Pulse Rate 74 79 80 Pulse Rate [ From Monitor] Respiratory 17 12 14 Rate Blood Pressure 117/63 117/63 117/63 O2 Sat by Pulse 97 95 96 Oximetry 01/29/21 01/29/21 01/29/21 02:30 02:40 02:50 Temperature Pulse Rate 82 79 82 Pulse Rate [ From Monitor] Respiratory 16 16 15 Rate Blood Pressure 117/63 117/63 117/63 O2 Sat by Pulse 96 96 96 Oximetry 01/29/21 01/29/21 01/29/21 03:00 03:10 03:20 Temperature Pulse Rate 72 83 86 Pulse Rate [ From Monitor] Respiratory 16 16 16 Rate Blood Pressure 117/63 128/65 128/65 O2 Sat by Pulse 96 96 96 Oximetry 01/29/21 01/29/21 01/29/21 03:30 03:40 03:50 Temperature Pulse Rate 80 73 87 Pulse Rate [ From Monitor] Respiratory 16 17 17 Rate Blood Pressure 128/65 128/65 128/65 O2 Sat by Pulse 96 94 89 Oximetry 01/29/21 01/29/21 01/29/21 04:00 04:10 04:20 Temperature 99.8 F H Pulse Rate 86 80 76 Pulse Rate [ From Monitor] Respiratory 16 17 15 Rate Blood Pressure 128/65 136/82 136/82 O2 Sat by Pulse 97 Oximetry 01/29/21 01/29/21 01/29/21 04:30 04:40 04:50 Temperature Pulse Rate 77 91 H 87 Pulse Rate [ From Monitor] Respiratory 15 16 17 Rate Blood Pressure 136/82 136/82 136/82 O2 Sat by Pulse 89 91 91 Oximetry 01/29/21 01/29/21 01/29/21 04:55 05:00 05:10 Temperature Pulse Rate 81 79 80 Pulse Rate [ From Monitor] Respiratory 17 17 Rate Blood Pressure 136/82 136/82 105/66 O2 Sat by Pulse 88 91 91 Oximetry 01/29/21 01/29/21 01/29/21 05:20 05:25 05:28 Temperature Pulse Rate 70 70 Pulse Rate [ From Monitor] Respiratory 16 Rate Blood Pressure 105/66 O2 Sat by Pulse 92 97 Oximetry 01/29/21 01/29/21 01/29/21 05:30 05:40 05:50 Temperature Pulse Rate 80 82 77 Pulse Rate [ From Monitor] Respiratory 17 17 16 Rate Blood Pressure 105/66 105/66 105/66 O2 Sat by Pulse 93 94 94 Oximetry 01/29/21 01/29/21 01/29/21 06:00 06:10 06:20 Temperature Pulse Rate 83 86 80 Pulse Rate [ From Monitor] Respiratory 16 18 16 Rate Blood Pressure 127/78 127/78 127/78 O2 Sat by Pulse 94 94 94 Oximetry 01/29/21 01/29/21 01/29/21 06:30 06:40 06:50 Temperature Pulse Rate 87 81 82 Pulse Rate [ From Monitor] Respiratory 17 16 17 Rate Blood Pressure 127/78 127/78 127/78 O2 Sat by Pulse 95 95 95 Oximetry 01/29/21 01/29/21 01/29/21 07:00 07:10 07:18 Temperature 100.0 F H Pulse Rate 78 85 82 Pulse Rate [ From Monitor] Respiratory 16 16 Rate Blood Pressure 127/78 124/76 124/76 O2 Sat by Pulse 95 95 96 Oximetry 01/29/21 01/29/21 01/29/21 07:20 07:30 07:40 Temperature Pulse Rate 82 84 82 Pulse Rate [ From Monitor] Respiratory 15 17 14 Rate Blood Pressure 124/76 124/76 124/76 O2 Sat by Pulse 95 95 95 Oximetry 01/29/21 01/29/21 01/29/21 07:50 08:00 08:10 Temperature Pulse Rate 86 75 78 Pulse Rate [ 75 From Monitor] Respiratory 16 17 19 Rate Blood Pressure 124/76 124/76 104/67 O2 Sat by Pulse 95 95 95 Oximetry 01/29/21 01/29/21 01/29/21 08:20 08:30 08:40 Temperature Pulse Rate 73 69 74 Pulse Rate [ From Monitor] Respiratory 16 17 16 Rate Blood Pressure 104/67 104/67 104/67 O2 Sat by Pulse 96 96 96 Oximetry 01/29/21 01/29/21 01/29/21 08:50 09:00 09:10 Temperature Pulse Rate 76 71 73 Pulse Rate [ From Monitor] Respiratory 16 16 16 Rate Blood Pressure 104/67 99/65 104/67 O2 Sat by Pulse 97 97 96 Oximetry 01/29/21 01/29/21 01/29/21 09:20 09:30 09:40 Temperature Pulse Rate 82 81 80 Pulse Rate [ From Monitor] Respiratory 16 19 18 Rate Blood Pressure 104/67 121/78 121/78 O2 Sat by Pulse 96 97 96 Oximetry 01/29/21 01/29/21 01/29/21 09:50 10:00 10:10 Temperature Pulse Rate 81 82 86 Pulse Rate [ From Monitor] Respiratory 22 18 17 Rate Blood Pressure 121/78 121/78 120/81 O2 Sat by Pulse 96 95 95 Oximetry 01/29/21 01/29/21 01/29/21 10:20 10:31 10:41 Temperature Pulse Rate 83 82 89 Pulse Rate [ From Monitor] Respiratory 17 22 19 Rate Blood Pressure 120/81 120/81 120/81 O2 Sat by Pulse 95 93 92 Oximetry 01/29/21 01/29/21 01/29/21 10:50 10:51 11:00 Temperature Pulse Rate 88 84 Pulse Rate [ From Monitor] Respiratory 16 17 Rate Blood Pressure 120/81 130/81 O2 Sat by Pulse 94 93 93 Oximetry 01/29/21 01/29/21 01/29/21 11:11 11:21 11:31 Temperature Pulse Rate 89 73 85 Pulse Rate [ From Monitor] Respiratory 17 20 18 Rate Blood Pressure 130/81 130/81 130/81 O2 Sat by Pulse 92 91 92 Oximetry 01/29/21 01/29/21 01/29/21 11:41 11:51 12:00 Temperature Pulse Rate 83 85 91 H Pulse Rate [ 86 From Monitor] Respiratory 18 14 18 Rate Blood Pressure 130/81 130/81 132/78 O2 Sat by Pulse 92 94 94 Oximetry 01/29/21 01/29/21 12:04 13:20 Temperature 99.0 F Pulse Rate 87 Pulse Rate [ From Monitor] Respiratory Rate Blood Pressure 132/78 O2 Sat by Pulse 92 Oximetry - Labs CBC & Chem 7: 02/02/21 04:40 02/02/21 04:40 Labs: Abnormal lab results 01/28/21 01/28/21 01/29/21 Range/Units 17:36 23:18 02:52 RBC (3.65-5.03) M/mm3 Hgb (11.8-15.2) gm/dl Hct (35.5-45.6) % MCV (84-94) fl POC ABG pCO2 72.6 H (32.0-48.0) mmHg POC ABG pO2 58.0 L (83-108) mmHg ABG Hemoglobin 11.6 L (12.0-17.5) ABG Oxyhemoglobin 86.5 L (94-98) ABG Glucose 179 H (65-95) mg/dL Chloride (98-107) mmol/L Carbon Dioxide (22-30) mmol/L BUN (9-20) mg/dL Creatinine (0.8-1.3) mg/dL Glucose (75-100) mg/dL POC Glucose 127 H 146 H (70-105) mg/dL Triglycerides (2-149) mg/dL Arterial Blood Glucose 179 H (65-95) mg/dL Arterial Blood Ionized Calcium 4.4 L (4.6-5.3) mg/dL 01/29/21 01/29/21 01/29/21 Range/Units 04:53 07:03 07:03 RBC 3.29 L (3.65-5.03) M/mm3 Hgb 10.6 L (11.8-15.2) gm/dl Hct 32.4 L (35.5-45.6) % MCV 99 H (84-94) fl POC ABG pCO2 (32.0-48.0) mmHg POC ABG pO2 (83-108) mmHg ABG Hemoglobin (12.0-17.5) ABG Oxyhemoglobin (94-98) ABG Glucose (65-95) mg/dL Chloride 97.6 L (98-107) mmol/L Carbon Dioxide 36 H (22-30) mmol/L BUN 63 H (9-20) mg/dL Creatinine 1.8 H (0.8-1.3) mg/dL Glucose 180 H (75-100) mg/dL POC Glucose 146 H (70-105) mg/dL Triglycerides 157 H (2-149) mg/dL Arterial Blood Glucose (65-95) mg/dL Arterial Blood Ionized Calcium (4.6-5.3) mg/dL 01/29/21 Range/Units 11:14 RBC (3.65-5.03) M/mm3 Hgb (11.8-15.2) gm/dl Hct (35.5-45.6) % MCV (84-94) fl POC ABG pCO2 (32.0-48.0) mmHg POC ABG pO2 (83-108) mmHg ABG Hemoglobin (12.0-17.5) ABG Oxyhemoglobin (94-98) ABG Glucose (65-95) mg/dL Chloride (98-107) mmol/L Carbon Dioxide (22-30) mmol/L BUN (9-20) mg/dL Creatinine (0.8-1.3) mg/dL Glucose (75-100) mg/dL POC Glucose 162 H (70-105) mg/dL Triglycerides (2-149) mg/dL Arterial Blood Glucose (65-95) mg/dL Arterial Blood Ionized Calcium (4.6-5.3) mg/dL HEART Score - HEART Score Troponin: Troponin T < 0.010 ng/mL (0.00-0.029) 01/20/21 19:26
[2021-01-29] MEDS: OXYMETAZOLINE 0.05% NASAL SPRAY NS SCH (14:13)
[2021-01-29 15:34] LABS: Hematocrit 32.7 % (35.5-45.6); Hemoglobin 10.5 gm/dl (11.8-15.2)
--- NOTE | 2021-01-29 15:48 | Gastroenterology Consultation ---
History of Present Illness - Reason for Consult Consult date: 01/29/21 GI Bleed Requesting physician: ELDER PANTOJA - History of Present Illness Please see prior notes for details of patient's recent admission GI is consulted for bleeding Spoke with the patient's nurse, he had blood in the OG tube that turned dark therefore tube feeds were turned off and GI was called Patient also with bleeding from the left nostril Afrin was applied and gauze was placed History obtained from patient's , Mrs. Kiser at [phone] She reports thinks patient has a history of ulcers in the past was not complaining of any gastrointestinal bleeding before he came to the hospital the Obtained/updated/reviewed patient's current medications Past History Past Medical History: atrial fib, diabetes, hypertension Past Surgical History: No surgical history Social history: no significant social history Family history: no significant family history Medications and Allergies Allergies Allergy/AdvReac Type Severity Reaction Status Date / Time No Known Allergies Allergy Unverified 01/20/21 19:59 Home Medications Medication Instructions Recorded Confirmed Last Taken Type Amlodipine Besylate [Norvasc] 10 mg PO DAILY 01/20/21 01/20/21 01/19/21 History Atorvastatin [Lipitor Tab] 80 mg PO DAILY 01/20/21 01/20/21 01/19/21 History Banophen Anti-Itch 25 mg PO DAILY 01/20/21 01/20/21 01/19/21 History Metformin HCl [metFORMIN ER 500 mg PO DAILY 01/20/21 01/20/21 01/19/21 History Osmotic] Metoprolol [Lopressor] 25 mg PO DAILY 01/20/21 01/20/21 01/19/21 History Active Meds: Active Medications Acetaminophen (Acetaminophen 325 Mg Tab) 650 mg PO Q4H PRN PRN Reason: Pain MILD(1-3)/Fever >100.5/[place] Last Admin: 01/27/21 04:21 Dose: 650 mg Documented by: Acetaminophen (Acetaminophen 650 Mg Rect Supp) 650 mg [place] Q4H PRN PRN Reason: Pain, Mild (1-3) IF NPO Last Admin: 01/24/21 05:34 Dose: 650 mg Documented by: Albuterol (Albuterol 2.5 Mg/3 Ml Nebu) 2.5 mg IH Q4HRT PRN PRN Reason: Shortness Of Breath Lipase/Protease/Amylase (Lipase 10,500/Protease 25,000/Amylase 43,750 (Units) Dr Cap) 1 each FEEDTUBE PRN PRN PRN Reason: For Clogged Feeding Tube Atorvastatin Calcium (Atorvastatin 40 Mg Tab) 80 mg PO DAILY NGUYEN Last Admin: 01/29/21 09:07 Dose: 80 mg Documented by: Dextrose (Dextrose 50% In Water (25gm) 50 Ml Syringe) 0 ml IV Q30MIN PRN; Protocol PRN Reason: Hypoglycemia Docusate Sodium (Docusate Sodium 100 Mg Cap) 100 mg PO BID NGUYEN Last Admin: 01/29/21 09:08 Dose: 100 mg Documented by: Fentanyl (Fentanyl 100 Mcg/2 Ml Inj) 50 mcg IV Q2H PRN PRN Reason: Pain , Severe (7-10) Last Admin: 01/29/21 10:47 Dose: 50 mcg Documented by: Hydralazine HCl (Hydralazine 20 Mg/1 Ml Inj) 10 mg IV Q6H PRN PRN Reason: htn Norepinephrine (Levophed Drip 4 Mg/Ns 250 Ml) 4 mg in 250 mls @ 7.5 mls/hr IV TITR NGUYEN; Protocol Last Titration: 01/25/21 06:25 Dose: 0 mcg/min, 0 mls/hr Documented by: Propofol (Diprivan 10 Mg/Ml) 1,000 mg in 100 mls @ 3.468 mls/hr IV TITR NGUYEN; Protocol Last Titration: 01/29/21 09:15 Dose: 0 mcg/kg/min, 0 mls/hr Documented by: Cefepime HCl (Cefepime/Ns 2 Gm/100 Ml) 2 gm in 100 mls @ 200 mls/hr IV Q12H NGUYEN; Protocol Last Admin: 01/29/21 13:45 Dose: 200 mls/hr Documented by: Pantoprazole Sodium 80 mg/ (Sodium Chloride) 100 mls @ 10 mls/hr IV DIRECT NGUYEN Stop: 02/01/21 13:59 Last Admin: 01/29/21 13:46 Dose: 8 mg/hr, 10 mls/hr Documented by: Insulin Human Lispro (Insulin Lispro 100 Unit/Ml) 0 unit SUB-Q Q6HR NGUYEN; Protocol Last Admin: 01/29/21 12:29 Dose: 2 unit Documented by: Lorazepam (Lorazepam 2 Mg/Ml Vial) 2 mg IV Q4H PRN PRN Reason: Agitation Last Admin: 01/27/21 22:39 Dose: 2 mg Documented by: Ondansetron HCl (Ondansetron 4 Mg/2 Ml Inj) 4 mg IV Q8H PRN PRN Reason: Nausea And Vomiting Oxymetazoline HCl (Oxymetazoline 0.05% Nasal [place]) 2 spray NS Q12H [facility] Stop: 02/01/21 01:01 Last Admin: 01/29/21 14:13 Dose: 2 spray Documented by: Senna (Sennosides 8.6 Mg Tab) 8.6 mg PO Q12H PRN PRN Reason: Laxative Effect Last Admin: 01/28/21 09:34 Dose: 8.6 mg Documented by: Simple Syrup (Simple Syrup 15 Ml) 15 ml FEEDTUBE PRN PRN PRN Reason: Hypoglycemia Simple Syrup (Simple Syrup 15 Ml) 30 ml FEEDTUBE PRN PRN PRN Reason: Hypoglycemia Sodium Bicarbonate (Sodium Bicarbonate 325 Mg Tab) 325 mg FEEDTUBE PRN PRN PRN Reason: For Clogged Feeding Tube Sodium Chloride (Sodium Chloride 0.9% 10 Ml Flush Syringe) 10 ml IV BID [facility] Last Admin: 01/29/21 09:08 Dose: 10 ml Documented by: Sodium Chloride (Sodium Chloride 0.9% 10 Ml Flush Syringe) 10 ml IV PRN PRN PRN Reason: LINE FLUSH Review of Systems - Review of Systems ROS unobtainable: due to endotracheal tube Exam - Constitutional Vital Signs: Temp Pulse Resp BP Pulse Ox 99.0 F 79 18 127/80 98 01/29/21 13:20 01/29/21 15:11 01/29/21 15:11 01/29/21 15:11 01/29/21 15:11 General appearance: other (Intubated not answering questions) - EENT ENT: other (Fresh blood oozing out of the left nostril) - Neck Neck: supple - Respiratory Respiratory effort: other (Patient mechanically ventilated) - Cardiovascular Rhythm: other (Regular rate) - Gastrointestinal General gastrointestinal: Present: soft - Integumentary Integumentary: Present: dry - Neurologic Neurological: other (Unable to assess as patient is intubated) - Labs CBC & Chem 7: 01/29/21 14:37 01/29/21 07:03 Lab Results: Laboratory Results - last 24 hr 01/28/21 01/28/21 01/28/21 14:12 17:36 23:18 WBC RBC Hgb Hct MCV MCH MCHC RDW Plt Count ABG pH POC ABG pCO2 POC ABG pO2 POC ABG HCO3 ABG O2 Saturation POC ABG Base Excess ABG Hemoglobin ABG Oxyhemoglobin ABG Methemoglobin ABG Sodium ABG Potassium ABG Chloride ABG Glucose Carboxyhemoglobin FiO2 % Sodium Potassium Chloride Carbon Dioxide Anion Gap BUN Creatinine Estimated GFR BUN/Creatinine Ratio Glucose POC Glucose 127 H 146 H Calcium Triglycerides Procalcitonin 0.52 Arterial Blood Glucose Arterial Blood Ionized Calcium 01/29/21 01/29/21 01/29/21 02:52 04:53 07:03 WBC RBC Hgb Hct MCV MCH MCHC RDW Plt Count ABG pH 7.350 POC ABG pCO2 72.6 H POC ABG pO2 58.0 L POC ABG HCO3 39.2 ABG O2 Saturation 87.2 POC ABG Base Excess 11.0 ABG Hemoglobin 11.6 L ABG Oxyhemoglobin 86.5 L ABG Methemoglobin 0 ABG Sodium 141.4 ABG Potassium 4.1 ABG Chloride 99.0 ABG Glucose 179 H Carboxyhemoglobin 0.8 FiO2 % 75.0 Sodium 140 Potassium 4.0 Chloride 97.6 L Carbon Dioxide 36 H Anion Gap 10 BUN 63 H Creatinine 1.8 H Estimated GFR 46 BUN/Creatinine Ratio 35 Glucose 180 H POC Glucose 146 H Calcium 8.8 Triglycerides 157 H Procalcitonin Arterial Blood Glucose 179 H Arterial Blood Ionized Calcium 4.4 L 01/29/21 01/29/21 01/29/21 07:03 11:14 14:13 WBC 11.0 RBC 3.29 L Hgb 10.6 L Hct 32.4 L MCV 99 H MCH 32 MCHC 33 RDW 14.8 Plt Count 209 ABG pH 7.349 POC ABG pCO2 66.4 H POC ABG pO2 94.0 POC ABG HCO3 35.8 ABG O2 Saturation 96.7 POC ABG Base Excess 8.2 ABG Hemoglobin 11.3 L ABG Oxyhemoglobin 96.4 ABG Methemoglobin 0 ABG Sodium 140.0 ABG Potassium 4.1 ABG Chloride 100.0 ABG Glucose 174 H Carboxyhemoglobin 0.3 L FiO2 % 100.0 Sodium Potassium Chloride Carbon Dioxide Anion Gap BUN Creatinine Estimated GFR BUN/Creatinine Ratio Glucose POC Glucose 162 H Calcium Triglycerides Procalcitonin Arterial Blood Glucose 174 H Arterial Blood Ionized Calcium 4.4 L 01/29/21 14:37 WBC RBC Hgb 10.5 L Hct 32.7 L MCV MCH MCHC RDW Plt Count ABG pH POC ABG pCO2 POC ABG pO2 POC ABG HCO3 ABG O2 Saturation POC ABG Base Excess ABG Hemoglobin ABG Oxyhemoglobin ABG Methemoglobin ABG Sodium ABG Potassium ABG Chloride ABG Glucose Carboxyhemoglobin FiO2 % Sodium Potassium Chloride Carbon Dioxide Anion Gap BUN Creatinine Estimated GFR BUN/Creatinine Ratio Glucose POC Glucose Calcium Triglycerides Procalcitonin Arterial Blood Glucose Arterial Blood Ionized Calcium Assessment and Plan Based upon physical exam findings of old blood on the OG tube and fresh blood oozing out of the left nostril, most likely source for the blood is nasopharyngeal with the fresh blood dripping back into the stomach which then turns dark and is being removed by the OG tube To be thorough recommend continuing PPI but recommend packing the left nostril and monitor closely - Patient Problems (1) Coffee ground emesis Current Visit: Yes Status: Acute
[2021-01-29] MEDS: ACETAMINOPHEN 650 MG RECT SUPP PR PRN (17:14)
[2021-01-29 21:42] LABS: Amorphous Crystals,Urine 1+; Bacteria,Urine 1+ /HPF (Negative); Bilirubin,Urine NEG (Negative); Blood,Urine SM (Negative); Color,Urine Yellow (Yellow)
[2021-01-29 21:43] LABS: Protein,Urine >500 mg/dL (Negative)
[2021-01-29 23:03] LABS: Hematocrit 31.1 % (35.5-45.6); Hemoglobin 10.2 gm/dl (11.8-15.2)
[2021-01-30] MEDS: CEFEPIME/NS 2 GM/100 ML 2 GM/100 ML BAG IV SCH (00:17)
[2021-01-30] MEDS: INSULIN LISPRO 100 UNIT/ML SUB-Q SCH ×4 (00:45→18:36)
[2021-01-30] MEDS: OXYMETAZOLINE 0.05% NASAL SPRAY NS SCH ×2 (00:46→13:35)
[2021-01-30] MEDS: ACETAMINOPHEN 650 MG RECT SUPP PR PRN ×3 (04:30→18:34)
[2021-01-30 08:19] LABS: Basophils # (Auto) 0.1 K/mm3 (0.0-0.1); Basophils % (Auto) 0.6 % (0.0-1.8); Eosinophils % (Auto) 0.2 % (0.0-4.3); Hematocrit 32.1 % (35.5-45.6); Hemoglobin 10.1 gm/dl (11.8-15.2); Lymphocytes # (Auto) 0.5 K/mm3 (1.2-5.4); Lymphocytes % (Auto) 3.9 % (13.4-35.0); Mean Corpuscular HGB Conc 31 % (32-34); Mean Corpuscular Volume 98 fl (84-94); Monocytes # (Auto) 0.8 K/mm3 (0.0-0.8); Monocytes % (Auto) 6.5 % (0.0-7.3); Platelet Count 232 K/mm3 (140-440); Red Blood Count 3.27 M/mm3 (3.65-5.03); Red Cell Distribution Width 14.7 % (13.2-15.2)
[2021-01-30 08:39] LABS: Calcium 8.8 mg/dL (8.4-10.2)
--- NOTE | 2021-01-30 09:00 | Gastroenterology Progress Note ---
Assessment and Plan Slight decline in hemoglobin which I suspect will stabilize today. No melena so no active upper GI bleeding is likely. Additionally, very small amount of liquid in the suction canister from the overnight OG tube suctioning with only minimal amount of blood indicates no active upper GI bleeding. Therefore, the structure risks of endoscopy would outweigh the benefits continue proton pump inhibitor and continue to monitor - Patient Problems (1) Coffee ground emesis Current Visit: Yes Status: Acute Subjective Date of service: 01/30/21 Principal diagnosis: CVA Interval history: Patient intubated so history obtained from nurse No report of melena overnight The suction canister from the patient's OG tube has about 200 cc of dark brown thin liquid with a small amount of reddish hue to liquid in the tubing No bleeding otherwise from the nose Objective - Constitutional Vitals: Temp Pulse Resp BP Pulse Ox 100.3 F H 98 H 17 140/89 96 01/30/21 07:00 01/30/21 08:36 01/30/21 07:00 01/30/21 08:36 01/30/21 08:36 General appearance: other (Intubated) - EENT ENT: other (No blood from the nose) - Labs CBC & Chem 7: 01/30/21 07:20 01/30/21 07:20 Labs: Laboratory Results - last 24 hr 01/29/21 01/29/21 01/29/21 04:53 11:14 14:13 WBC RBC Hgb Hct MCV MCH MCHC RDW Plt Count Lymph % (Auto) [place] % (Auto) Eos % (Auto) Baso % (Auto) Lymph # (Auto) [place] # (Auto) Eos # (Auto) Baso # (Auto) Seg Neutrophils % Seg Neutrophils # ABG pH 7.349 POC ABG pCO2 66.4 H POC ABG pO2 94.0 POC ABG HCO3 35.8 ABG O2 Saturation 96.7 POC ABG Base Excess 8.2 ABG Hemoglobin 11.3 L ABG Oxyhemoglobin 96.4 ABG Methemoglobin 0 ABG Sodium 140.0 ABG Potassium 4.1 ABG Chloride 100.0 ABG Glucose 174 H Carboxyhemoglobin 0.3 L FiO2 % 100.0 Sodium Potassium Chloride Carbon Dioxide Anion Gap BUN Creatinine Estimated GFR BUN/Creatinine Ratio Glucose POC Glucose 146 H 162 H Calcium Arterial Blood Glucose 174 H Arterial Blood Ionized Calcium 4.4 L Urine Color Urine Turbidity Urine pH Ur Specific [place] Urine Protein Urine Glucose (UA) Urine Ketones Urine Blood Urine Nitrite Urine Bilirubin Urine Urobilinogen Ur Leukocyte Esterase Urine WBC (Auto) Urine RBC (Auto) U Epithel Cells (Auto) Urine Bacteria (Auto) Amorphous Crystals Urine Yeast (Budding) 01/29/21 01/29/21 01/29/21 14:37 17:54 21:22 WBC RBC Hgb 10.5 L Hct 32.7 L MCV MCH MCHC RDW Plt Count Lymph % (Auto) [place] % (Auto) Eos % (Auto) Baso % (Auto) Lymph # (Auto) [place] # (Auto) Eos # (Auto) Baso # (Auto) Seg Neutrophils % Seg Neutrophils # ABG pH POC ABG pCO2 POC ABG pO2 POC ABG HCO3 ABG O2 Saturation POC ABG Base Excess ABG Hemoglobin ABG Oxyhemoglobin ABG Methemoglobin ABG Sodium ABG Potassium ABG Chloride ABG Glucose Carboxyhemoglobin FiO2 % Sodium Potassium Chloride Carbon Dioxide Anion Gap BUN Creatinine Estimated GFR BUN/Creatinine Ratio Glucose POC Glucose 148 H Calcium Arterial Blood Glucose Arterial Blood Ionized Calcium Urine Color Yellow Urine Turbidity Slightly cloudy Urine pH 5.0 Ur Specific [place] 1.017 Urine Protein >500 Urine Glucose (UA) Neg Urine Ketones Neg Urine Blood Sm Urine Nitrite Neg Urine Bilirubin Neg Urine Urobilinogen 2.0 Ur Leukocyte Esterase Neg Urine WBC (Auto) 5.0 Urine RBC (Auto) 6.0 U Epithel Cells (Auto) 1.0 Urine Bacteria (Auto) 1+ Amorphous Crystals 1+ Urine Yeast (Budding) Few 01/29/21 01/30/21 01/30/21 22:48 00:24 03:14 WBC RBC Hgb 10.2 L Hct 31.1 L MCV MCH MCHC RDW Plt Count Lymph % (Auto) [place] % (Auto) Eos % (Auto) Baso % (Auto) Lymph # (Auto) [place] # (Auto) Eos # (Auto) Baso # (Auto) Seg Neutrophils % Seg Neutrophils # ABG pH 7.371 POC ABG pCO2 56.1 H POC ABG pO2 95.4 POC ABG HCO3 31.8 ABG O2 Saturation 96.8 POC ABG Base Excess 5.3 ABG Hemoglobin 11.0 L ABG Oxyhemoglobin 96.2 ABG Methemoglobin 0.3 ABG Sodium 141.9 ABG Potassium 4.4 ABG Chloride 103.0 ABG Glucose 120 H Carboxyhemoglobin 0.3 L FiO2 % 100.0 Sodium Potassium Chloride Carbon Dioxide Anion Gap BUN Creatinine Estimated GFR BUN/Creatinine Ratio Glucose POC Glucose 133 H Calcium Arterial Blood Glucose 120 H Arterial Blood Ionized Calcium 4.5 L Urine Color Urine Turbidity Urine pH Ur Specific [place] Urine Protein Urine Glucose (UA) Urine Ketones Urine Blood Urine Nitrite Urine Bilirubin Urine Urobilinogen Ur Leukocyte Esterase Urine WBC (Auto) Urine RBC (Auto) U Epithel Cells (Auto) Urine Bacteria (Auto) Amorphous Crystals Urine Yeast (Budding) 01/30/21 01/30/21 07:20 07:20 WBC 11.6 H RBC 3.27 L Hgb 10.1 L Hct 32.1 L MCV 98 H MCH 31 MCHC 31 L RDW 14.7 Plt Count 232 Lymph % (Auto) 3.9 L [place] % (Auto) 6.5 Eos % (Auto) 0.2 Baso % (Auto) 0.6 Lymph # (Auto) 0.5 L [place] # (Auto) 0.8 Eos # (Auto) 0.0 Baso # (Auto) 0.1 Seg Neutrophils % 88.8 H Seg Neutrophils # 10.3 H ABG pH POC ABG pCO2 POC ABG pO2 POC ABG HCO3 ABG O2 Saturation POC ABG Base Excess ABG Hemoglobin ABG Oxyhemoglobin ABG Methemoglobin ABG Sodium ABG Potassium ABG Chloride ABG Glucose Carboxyhemoglobin FiO2 % Sodium 147 H Potassium 4.7 Chloride 101.6 Carbon Dioxide 36 H Anion Gap 14 BUN 89 H Creatinine 2.8 H D Estimated GFR 28 BUN/Creatinine Ratio 32 Glucose 126 H POC Glucose Calcium 8.8 Arterial Blood Glucose Arterial Blood Ionized Calcium Urine Color Urine Turbidity Urine pH Ur Specific [place] Urine Protein Urine Glucose (UA) Urine Ketones Urine Blood Urine Nitrite Urine Bilirubin Urine Urobilinogen Ur Leukocyte Esterase Urine WBC (Auto) Urine RBC (Auto) U Epithel Cells (Auto) Urine Bacteria (Auto) Amorphous Crystals Urine Yeast (Budding)
[2021-01-30] MEDS: DOCUSATE SODIUM 100 MG/10 ML ORAL LIQD FEEDTUBE SCH ×2 (10:20→21:05)
--- NOTE | 2021-01-30 10:31 | XRay Report ---
CHEST 1 VIEW 01/30/2021 9:22 AM INDICATION / CLINICAL INFORMATION: respiratory failure. COMPARISON: One view of the chest from 01/28/2021. FINDINGS: SUPPORT DEVICES: Unchanged. HEART / MEDIASTINUM: Stable. LUNGS / PLEURA: Bilateral airspace opacities have worsened. No significant pleural effusion. No pneum othorax. ADDITIONAL FINDINGS: No significant additional findings. IMPRESSION: Interval worsening of bilateral airspace opacities without other significant interval changes. Signer Name: Stevenson Tompkins MD Signed: 01/30/2021 10:27 AM Workstation Name: [id number]
[2021-01-30] MEDS: PANTOPRAZOLE 80 MG in SODIUM CHLORIDE 0.9% 100 ML IV SCH ×2 (10:42→20:38)
--- NOTE | 2021-01-30 10:47 | Consultation ---
History of Present Illness - Reason for Consult Consult date: 01/30/21 acute renal failure, hypernatremia - History of Present Illness The patient is a 65 YO male with past medical history of Diabetes, Hypertension and A.fib who was brought to [facility] ED 01/20 for evaluation of generalized weakness . Unable to get any history from patient at this time due to pt being on the vent and there was no family member at the bedside. Patient reported headache, cough, fever, shortness of breath, decreased appetite and progressive generalized weakness. No h/o vomiting or diarrhea. Patient has not received a COVID-19 vaccine at the time of admission. EMS reports patient was febrile, temp of 102, and hypoxic upon their arrival, with O2 sats initially in the 70s. Accu-Chek 110. In the emergency room patient CT scan of the chest showed possible mild inflammatory process right middle lobe and right lower lobe. CT scan of the head showed limited imaging secondary to artifact as noted low dense area right parietal lobe etiology unclear. Patient was on Levophed until 01/25. Labs significant for Creat 2.8, BUN 89 and Sodium 147. Nephrology was consulted for further evaluation of B[place]. Past History Past Medical History: atrial fib, diabetes, hypertension Past Surgical History: No surgical history Social history: no significant social history Family history: no significant family history Medications and Allergies Allergies Allergy/AdvReac Type Severity Reaction Status Date / Time No Known Allergies Allergy Unverified 01/20/21 19:59 Home Medications Medication Instructions Recorded Confirmed Last Taken Type Amlodipine Besylate [Norvasc] 10 mg PO DAILY 01/20/21 01/20/21 01/19/21 History Atorvastatin [Lipitor Tab] 80 mg PO DAILY 01/20/21 01/20/21 01/19/21 History Banophen Anti-Itch 25 mg PO DAILY 01/20/21 01/20/21 01/19/21 History Metformin HCl [metFORMIN ER 500 mg PO DAILY 01/20/21 01/20/21 01/19/21 History Osmotic] Metoprolol [Lopressor] 25 mg PO DAILY 01/20/21 01/20/21 01/19/21 History Active Meds: Active Medications Acetaminophen (Acetaminophen 325 Mg Tab) 650 mg PO Q4H PRN PRN Reason: Pain MILD(1-3)/Fever >100.5/[place] Last Admin: 01/27/21 04:21 Dose: 650 mg Documented by: Acetaminophen (Acetaminophen 650 Mg Rect Supp) 650 mg [place] Q4H PRN PRN Reason: Pain, Mild (1-3) IF NPO Last Admin: 01/30/21 04:30 Dose: 650 mg Documented by: Albuterol (Albuterol 2.5 Mg/3 Ml Nebu) 2.5 mg IH Q4HRT PRN PRN Reason: Shortness Of Breath Lipase/Protease/Amylase (Lipase 10,500/Protease 25,000/Amylase 43,750 (Units) Dr Cap) 1 each FEEDTUBE PRN PRN PRN Reason: For Clogged Feeding Tube Atorvastatin Calcium (Atorvastatin 40 Mg Tab) 80 mg PO DAILY NGUYEN Last Admin: 01/29/21 09:07 Dose: 80 mg Documented by: Dextrose (Dextrose 50% In Water (25gm) 50 Ml Syringe) 0 ml IV Q30MIN PRN; Protocol PRN Reason: Hypoglycemia Docusate Sodium (Docusate Sodium 100 Mg/10 Ml Oral Liqd) 100 mg FEEDTUBE BID NGUYEN Fentanyl (Fentanyl 100 Mcg/2 Ml Inj) 50 mcg IV Q2H PRN PRN Reason: Pain , Severe (7-10) Last Admin: 01/29/21 10:47 Dose: 50 mcg Documented by: Hydralazine HCl (Hydralazine 20 Mg/1 Ml Inj) 10 mg IV Q6H PRN PRN Reason: htn Norepinephrine (Levophed Drip 4 Mg/Ns 250 Ml) 4 mg in 250 mls @ 7.5 mls/hr IV TITR NGUYEN; Protocol Last Titration: 01/25/21 06:25 Dose: 0 mcg/min, 0 mls/hr Documented by: Propofol (Diprivan 10 Mg/Ml) 1,000 mg in 100 mls @ 3.468 mls/hr IV TITR NGUYEN; Protocol Last Titration: 01/29/21 09:15 Dose: 0 mcg/kg/min, 0 mls/hr Documented by: Pantoprazole Sodium 80 mg/ (Sodium Chloride) 100 mls @ 10 mls/hr IV DIRECT NGUYEN Stop: 02/01/21 13:59 Last Admin: 01/30/21 10:42 Dose: 8 mg/hr, 10 mls/hr Documented by: Cefepime HCl (Cefepime/Ns 2 Gm/100 Ml) 2 gm in 100 mls @ 200 mls/hr IV Q24H [facility]; Protocol Sodium Chloride (Nacl 0.45% 1000 Ml) 1,000 mls @ 100 mls/hr IV DIRECT NGUYEN Insulin Human Lispro (Insulin Lispro 100 Unit/Ml) 0 unit SUB-Q Q6HR [facility]; Protocol Last Admin: 01/30/21 07:11 Dose: Not Given Documented by: Lorazepam (Lorazepam 2 Mg/Ml Vial) 2 mg IV Q4H PRN PRN Reason: Agitation Last Admin: 01/27/21 22:39 Dose: 2 mg Documented by: Ondansetron HCl (Ondansetron 4 Mg/2 Ml Inj) 4 mg IV Q8H PRN PRN Reason: Nausea And Vomiting Oxymetazoline HCl (Oxymetazoline 0.05% Nasal [place]) 2 spray NS Q12H [facility] Stop: 02/01/21 01:01 Last Admin: 01/30/21 00:46 Dose: 2 spray Documented by: Senna (Sennosides 8.6 Mg Tab) 8.6 mg PO Q12H PRN PRN Reason: Laxative Effect Last Admin: 01/28/21 09:34 Dose: 8.6 mg Documented by: Simple Syrup (Simple Syrup 15 Ml) 15 ml FEEDTUBE PRN PRN PRN Reason: Hypoglycemia Simple Syrup (Simple Syrup 15 Ml) 30 ml FEEDTUBE PRN PRN PRN Reason: Hypoglycemia Sodium Bicarbonate (Sodium Bicarbonate 325 Mg Tab) 325 mg FEEDTUBE PRN PRN PRN Reason: For Clogged Feeding Tube Sodium Chloride (Sodium Chloride 0.9% 10 Ml Flush Syringe) 10 ml IV BID [facility] Last Admin: 01/29/21 21:18 Dose: 10 ml Documented by: Sodium Chloride (Sodium Chloride 0.9% 10 Ml Flush Syringe) 10 ml IV PRN PRN PRN Reason: LINE FLUSH Review of Systems ROS unobtainable: due to mental status Exam - Vital Signs Vital signs: Vital Signs Temp Pulse Resp BP Pulse Ox 101.2 F H 89 22 192/111 97 01/20/21 18:34 01/20/21 18:34 01/20/21 18:34 01/20/21 18:34 01/20/21 18:34 Results - Lab Results 01/30/21 23:10 01/31/21 05:45 Most recent lab results ABG pH 7.371 (7.320-7.450) 01/30/21 03:14 ABG O2 Saturation 96.8 (0-100) 01/30/21 03:14 Calcium 8.8 mg/dL (8.4-10.2) 01/30/21 07:20 Phosphorus 2.50 mg/dL (2.5-4.5) D 01/25/21 09:40 Magnesium 2.90 mg/dL (1.7-2.3) H 01/24/21 08:44 Assessment and Plan 1. Acute kidney injury: Vasomotor BERKLEY in the setting of shock. ATN likely. Urine studies and Renal US ordered. Monitor renal function. Non-oliguric. On 08/25 NS. Renal prognosis is guarded. Avoid nephrotoxic agents. Meds dosage based on GFR. 2. FEN: Hypernatremia, monitor. Monitor lytes and volume status. 3. Acute hypoxemic respiratory failure: Currently intubated on vent. Followed by Pulmonary. 4. Shock: Likely septic. Right middle and lower lobe pneumonia. Off pressors, monitor. Cefepime. Followed by ID. 5. Acute metabolic encephalopathy: CT head negative for acute process. 6. A.fib. 7. Acute GI bleed: Followed by GI. 8. Anemia, not POA: Monitor. 9. DM type 2. 10. Seizure. Subjective: Patient was seen and examined at the bedside. Examination: General appearance: well-developed, appears stated age, intubated on vent HEENT: atraumatic, pupils appears equal Neck: trachea midline Respiratory: Coarse breath sounds heard Heart: S1S2, no murmur Abdomen: soft, obese, bowel sounds heard, NT Integumentary: no obvious rash Neurologic: sedated Ext: no edema noted : condom catheter
[2021-01-30] MEDS ORDERED: D5W/0.45% NACL 1,000 ML IV SCH (11:00)
[2021-01-30] MEDS: SODIUM CHLORIDE 0.45% 1000 ML 1,000 ML IV SCH ×2 (11:24→22:00)
--- NOTE | 2021-01-30 12:59 | Progress Note ---
Assessment and Plan Telemetry reviewed: Atrial fibrillation 90s. No events #A. fib with CVR * No AC at this point due to upper airway bleeding. Patient has been cleared to resume AC from neurology standpoint. Will resume AC once acute bleeding is resolved and okay per physician practice manager. * Patient is currently rate controlled. Continue to monitor on telemetry * Echo reviewed - mild LVH, EF 50-55%, mod pulm HTN w/RVSP 53 mmHg, mod RA enlargement, mild RV enlargement with TR, negative Bubble study. #Altered mental status in setting of acute CVA versus encephalopathy * Neurology was consulted for abnormal CT scan. MRI brain is recommended but unable to perform until patient is medically stabilized. * Currently altered mental status with recurrent seizure activity #Acute respiratory failure with hypoxia * Currently intubated and sedated #DVT prophylaxis * No AC in setting of acute upper airway hemorrhage. Management per physician practice manager. Patient is currently stable cardiac status. Continue to monitor on telemetry. We will follow This patient was seen in conjunction with Dr Brooke Arndt agrees with assessment and plan of care - Patient Problems (1) Encephalopathy Current Visit: Yes Status: Acute (2) A-fib Current Visit: Yes Status: Acute (3) Diabetes Current Visit: Yes Status: Acute (4) Pneumonia Current Visit: Yes Status: Acute (5) Suspected 2019 novel coronavirus infection Current Visit: Yes Status: Acute Subjective Date of service: 01/30/21 Principal diagnosis: CVA Interval history: Patient resting in bed intubated and sedated Telemetry reviewed: Atrial fibrillation 90s. No events Objective Last Vital Signs Temp 100.3 F H 01/30/21 07:00 Pulse 102 H 01/30/21 12:00 Resp 14 01/30/21 12:00 BP 121/75 01/30/21 12:00 Pulse Ox 96 01/30/21 12:00 - Physical Examination General: Other (intubated/sedated) HEENT: Positive: Normocephaly Neck: Positive: neck supple, trachea midline Cardiac: Positive: irregularly irregular, S1/S2 Lungs: Positive: Ventilated Respirations Neuro: Positive: Other (intubated/sedated) Abdomen: Positive: Soft Skin: Negative: Rash Musculoskeletal: No Fluid Collection Extremities: Present: lower extr. pulses. Absent: edema - Labs and Meds CBC 01/29/21 01/29/21 01/30/21 Range/Units 14:37 22:48 07:20 WBC 11.6 H (4.5-11.0) K/mm3 RBC 3.27 L (3.65-5.03) M/mm3 Hgb 10.5 L 10.2 L 10.1 L (11.8-15.2) gm/dl Hct 32.7 L 31.1 L 32.1 L (35.5-45.6) % Plt Count 232 (140-440) K/mm3 Lymph # (Auto) 0.5 L (1.2-5.4) K/mm3 [place] # (Auto) 0.8 (0.0-0.8) K/mm3 Eos # (Auto) 0.0 (0.0-0.4) K/mm3 Baso # (Auto) 0.1 (0.0-0.1) K/mm3 Comprehensive Metabolic Panel 01/30/21 Range/Units 07:20 Sodium 147 H (137-145) mmol/L Potassium 4.7 (3.6-5.0) mmol/L Chloride 101.6 (98-107) mmol/L Carbon Dioxide 36 H (22-30) mmol/L BUN 89 H (9-20) mg/dL Creatinine 2.8 H D (0.8-1.3) mg/dL Glucose 126 H (75-100) mg/dL Calcium 8.8 (8.4-10.2) mg/dL - Imaging and Cardiology EKG: report reviewed, image reviewed Echo: report reviewed (01/23/2021 - mild LVH, EF 50-55%, mod pulm HTN w/RVSP 53 mmHg, mod RA enlargement, mild RV enlargement with TR) - Telemetry EKG Rhythm: Atrial Fibrillation Repolarization changes or abnormalities: nonspecific abnormality, ST segment, and/or T wave - Allied health notes Allied health notes reviewed: nursing
--- NOTE | 2021-01-30 13:06 | Progress Note ---
Assessment and Plan 65 y/o male with acute respiratory failure secondary to altered mental state from possible stroke vs worsening stroke with hypotension requiring pressors. 01/30/21: Need to re-order MRI. NOw that kidney function is worse, likely not able to get contrast. Neurology has signed off so unable to ask them. Follow up renal recs. Patient is still making urine and lytes are ok. Down to 70% now with good sats. Continue to wean for Sats >88%. Very very guarded prognosis. 01/29/21: If pump is working, will obtain MRI. Will bronch patient today given increase in oxygen requirement and blood in nose and og tube. Worsening renal function now. Need to send urine lytes and obtain renal ultrasound. Guarded prognosis. Will pack nares with Affrin coated gauze. 01/28/21: Neurology has signed off. Will speak with CM about possible LTACH. They (neuro) are still asking for MRI, but not sure how this will exchange teller if they have signed off. Ok with anticoagulation and aggressive lipid control. No BM yet, BUN up to 46 but HgB has stayed the same. Will continue to monitor. 01/27/21: Stop Lasix therapy. Follow up any new neurology recs based on new head CT findings. Concern for possible bleeding given rise in BUN and drop in H/H, although patient could have been hemoconcentrated. Will start Bowel Regimen and be mindful of color of stool. No obvious bleeding has been witnessed. Continue to wean sedation for rass of 0 if possible. Wean Vent for sats >88%. I dropped FiO2 down to 75 this morning. Guarded prognosis. 01/26/21: Continue supportive measures. Agree with repeat Head CT. Sedation for patient safety but needs daily vacations. Guarded prognosis. 1. Place central line 2. Place art line 3. Vasopressor therapy 4. No sedation as of right now 5. Consider repeat CT head 6. Guarded prognosis. CCT 31 minutes. Subjective Date of service: 01/30/21 Principal diagnosis: CVA Interval history: Had further bleeding after I left the hospital so started on PPI drip and asked for GI consult. GI saw and thought it was from nare. Did have small drop in HgB. Still awake today and off sedation. Still will not move arms but will move legs. Objective Vital Signs - 12hr 06/05/1401/30/21 01/30/21 01:11 01:21 01:31 Temperature Pulse Rate 94 H 94 H 98 H Pulse Rate [ From Monitor] Respiratory 14 16 15 Rate Blood Pressure 138/90 138/90 138/90 O2 Sat by Pulse 95 94 94 Oximetry 01/30/21 01/30/21 01/30/21 01:41 01:51 02:00 Temperature Pulse Rate 90 93 H 95 H Pulse Rate [ From Monitor] Respiratory 15 16 17 Rate Blood Pressure 138/90 138/90 137/92 O2 Sat by Pulse 95 95 95 Oximetry 01/30/21 01/30/21 01/30/21 02:10 02:20 02:31 Temperature Pulse Rate 99 H 90 89 Pulse Rate [ From Monitor] Respiratory 16 9 L 19 Rate Blood Pressure 137/92 137/92 O2 Sat by Pulse 96 97 98 Oximetry 01/30/21 01/30/21 01/30/21 02:41 02:51 03:01 Temperature Pulse Rate 96 H 91 H 96 H Pulse Rate [ From Monitor] Respiratory 11 L 13 18 Rate Blood Pressure 137/92 137/92 149/92 O2 Sat by Pulse 98 97 97 Oximetry 01/30/21 01/30/21 01/30/21 03:11 03:21 03:31 Temperature Pulse Rate 89 91 H 96 H Pulse Rate [ From Monitor] Respiratory 15 24 22 Rate Blood Pressure 149/92 149/92 149/92 O2 Sat by Pulse 97 97 97 Oximetry 01/30/21 01/30/21 01/30/21 03:41 03:51 03:55 Temperature 101.0 F H Pulse Rate 91 H 101 H Pulse Rate [ From Monitor] Respiratory 24 17 Rate Blood Pressure 149/92 149/92 O2 Sat by Pulse 95 97 Oximetry 01/30/21 01/30/21 01/30/21 04:00 04:09 04:11 Temperature Pulse Rate 95 H 93 H 93 H Pulse Rate [ 91 H From Monitor] Respiratory 21 23 Rate Blood Pressure 128/90 128/90 128/90 O2 Sat by Pulse 96 96 96 Oximetry 01/30/21 01/30/21 01/30/21 04:21 04:31 04:41 Temperature Pulse Rate 93 H 93 H 90 Pulse Rate [ From Monitor] Respiratory 20 13 27 H Rate Blood Pressure 128/90 128/90 128/90 O2 Sat by Pulse 97 97 97 Oximetry 01/30/21 01/30/21 01/30/21 04:51 05:00 05:11 Temperature Pulse Rate 97 H 94 H 99 H Pulse Rate [ From Monitor] Respiratory 19 25 H 15 Rate Blood Pressure 128/90 136/84 136/84 O2 Sat by Pulse 97 97 96 Oximetry 01/30/21 01/30/21 01/30/21 05:21 05:31 05:41 Temperature Pulse Rate 93 H 97 H 93 H Pulse Rate [ From Monitor] Respiratory 17 15 15 Rate Blood Pressure 136/84 136/84 136/84 O2 Sat by Pulse 96 94 96 Oximetry 01/30/21 01/30/21 01/30/21 05:51 06:00 06:11 Temperature Pulse Rate 95 H 94 H 92 H Pulse Rate [ From Monitor] Respiratory 16 14 13 Rate Blood Pressure 136/84 145/85 145/85 O2 Sat by Pulse 97 97 98 Oximetry 01/30/21 01/30/21 01/30/21 06:21 06:31 06:41 Temperature Pulse Rate 98 H 92 H 98 H Pulse Rate [ From Monitor] Respiratory 14 17 18 Rate Blood Pressure 145/85 145/85 145/85 O2 Sat by Pulse 96 98 98 Oximetry 01/30/21 01/30/21 01/30/21 06:51 07:00 08:00 Temperature 100.3 F H Pulse Rate 98 H 90 106 H Pulse Rate [ 92 H From Monitor] Respiratory 18 17 15 Rate Blood Pressure 145/85 124/82 140/89 O2 Sat by Pulse 96 98 96 Oximetry 01/30/21 01/30/21 01/30/21 08:33 08:36 09:01 Temperature Pulse Rate 97 H 98 H 97 H Pulse Rate [ From Monitor] Respiratory 13 Rate Blood Pressure 140/89 140/89 142/89 O2 Sat by Pulse 96 96 97 Oximetry 01/30/21 01/30/21 01/30/21 10:00 11:01 11:38 Temperature Pulse Rate 106 H 100 H 111 H Pulse Rate [ From Monitor] Respiratory 13 17 Rate Blood Pressure 129/71 118/71 118/71 O2 Sat by Pulse 96 96 97 Oximetry 01/30/21 01/30/21 11:48 12:00 Temperature Pulse Rate 102 H Pulse Rate [ 103 H From Monitor] Respiratory 18 14 Rate Blood Pressure 121/75 O2 Sat by Pulse 95 96 Oximetry Constitutional: comatose Eyes: non-icteric ENT: other (orally intubated, no sedation) Neck: supple Effort: normal Ascultation: Bilateral: diminished breath sounds Percussion: Bilateral: not dull Cardiovascular: irregular rhythm Gastrointestinal: normoactive bowel sounds, absent bowel sounds Integumentary: normal Extremities: no edema, pulses normal Neurologic: unable to assess CBC and BMP: 01/30/21 07:20 01/30/21 07:20 ABG, PT/INR, D-dimer: ABG ABG pH 7.371 (7.320-7.450) 01/30/21 03:14 POC ABG pCO2 56.1 mmHg (32.0-48.0) H 01/30/21 03:14 POC ABG pO2 95.4 mmHg (83-108) 01/30/21 03:14 POC ABG HCO3 31.8 01/30/21 03:14 ABG O2 Saturation 96.8 (0-100) 01/30/21 03:14 PT/INR, D-dimer PT 14.2 Sec. (12.2-14.9) 01/28/21 10:01 INR 1.05 (0.87-1.13) 01/28/21 10:01 D-Dimer 229.34 ng/mlDDU (0-234) 01/20/21 23:20 Abnormal lab findings: Abnormal Labs 01/20/21 01/20/21 01/20/21 19:26 19:26 23:20 WBC RBC Hgb 15.3 H Hct 45.8 H MCV 98 H MCH 33 H MCHC RDW Lymph % (Auto) 5.2 L Mora % (Auto) 10.4 H Lymph # (Auto) 0.3 L Seg Neutrophils % 82.9 H Seg Neuts % (Manual) Lymphocytes % (Manual) Seg Neutrophils # Lymphocytes # (Manual) INR APTT ABG pH POC ABG pCO2 POC ABG pO2 ABG Hemoglobin ABG Oxyhemoglobin ABG Potassium ABG Glucose Carboxyhemoglobin Sodium Potassium Chloride 97.8 L Carbon Dioxide 33 H BUN Creatinine Glucose 127 H POC Glucose Calcium Phosphorus Magnesium Lactate Dehydrogenase 384 H C-Reactive Protein 2.70 H Albumin Triglycerides Cholesterol LDL Cholesterol Direct Arterial Blood Glucose Arterial Blood Ionized Calcium 01/21/21 01/21/21 01/21/21 00:17 05:45 05:45 WBC RBC Hgb 15.9 H Hct 47.9 H MCV 98 H MCH 33 H MCHC RDW 15.3 H Lymph % (Auto) Mora % (Auto) Lymph # (Auto) Seg Neutrophils % Seg Neuts % (Manual) 96.0 H Lymphocytes % (Manual) 3.0 L Seg Neutrophils # Lymphocytes # (Manual) 0.2 L INR APTT ABG pH POC ABG pCO2 POC ABG pO2 ABG Hemoglobin ABG Oxyhemoglobin ABG Potassium ABG Glucose Carboxyhemoglobin Sodium Potassium Chloride 96.2 L Carbon Dioxide 35 H BUN Creatinine 0.7 L Glucose 142 H POC Glucose 119 H Calcium Phosphorus Magnesium Lactate Dehydrogenase C-Reactive Protein Albumin Triglycerides Cholesterol 210 H LDL Cholesterol Direct 155 H Arterial Blood Glucose Arterial Blood Ionized Calcium 01/21/21 01/21/21 01/21/21 05:56 09:33 15:13 WBC RBC Hgb Hct 45.8 H MCV 98 H MCH MCHC RDW Lymph % (Auto) Mora % (Auto) Lymph # (Auto) Seg Neutrophils % Seg Neuts % (Manual) Lymphocytes % (Manual) Seg Neutrophils # Lymphocytes # (Manual) INR APTT ABG pH POC ABG pCO2 POC ABG pO2 ABG Hemoglobin ABG Oxyhemoglobin ABG Potassium ABG Glucose Carboxyhemoglobin Sodium Potassium Chloride Carbon Dioxide BUN Creatinine Glucose POC Glucose 147 H 153 H Calcium Phosphorus Magnesium Lactate Dehydrogenase C-Reactive Protein Albumin Triglycerides Cholesterol LDL Cholesterol Direct Arterial Blood Glucose Arterial Blood Ionized Calcium 01/21/21 01/21/21 01/22/21 15:13 16:33 01:53 WBC RBC Hgb Hct MCV MCH MCHC RDW Lymph % (Auto) Mora % (Auto) Lymph # (Auto) Seg Neutrophils % Seg Neuts % (Manual) Lymphocytes % (Manual) Seg Neutrophils # Lymphocytes # (Manual) INR 1.14 H APTT ABG pH POC ABG pCO2 POC ABG pO2 ABG Hemoglobin ABG Oxyhemoglobin ABG Potassium ABG Glucose Carboxyhemoglobin Sodium Potassium Chloride Carbon Dioxide BUN Creatinine Glucose POC Glucose 126 H 112 H Calcium Phosphorus Magnesium Lactate Dehydrogenase C-Reactive Protein Albumin Triglycerides Cholesterol LDL Cholesterol Direct Arterial Blood Glucose Arterial Blood Ionized Calcium 01/22/21 01/22/21 01/22/21 06:06 12:05 16:51 WBC RBC Hgb Hct MCV MCH MCHC RDW Lymph % (Auto) Mora % (Auto) Lymph # (Auto) Seg Neutrophils % Seg Neuts % (Manual) Lymphocytes % (Manual) Seg Neutrophils # Lymphocytes # (Manual) INR APTT ABG pH POC ABG pCO2 POC ABG pO2 ABG Hemoglobin ABG Oxyhemoglobin ABG Potassium ABG Glucose Carboxyhemoglobin Sodium Potassium Chloride Carbon Dioxide BUN Creatinine Glucose POC Glucose 107 H 121 H 164 H Calcium Phosphorus Magnesium Lactate Dehydrogenase C-Reactive Protein Albumin Triglycerides Cholesterol LDL Cholesterol Direct Arterial Blood Glucose Arterial Blood Ionized Calcium 01/22/21 01/23/21 01/23/21 23:10 05:39 06:08 WBC RBC Hgb Hct MCV 101 H MCH 33 H MCHC RDW Lymph % (Auto) Mora % (Auto) Lymph # (Auto) Seg Neutrophils % Seg Neuts % (Manual) Lymphocytes % (Manual) Seg Neutrophils # Lymphocytes # (Manual) INR APTT ABG pH POC ABG pCO2 POC ABG pO2 ABG Hemoglobin ABG Oxyhemoglobin ABG Potassium ABG Glucose Carboxyhemoglobin Sodium Potassium Chloride Carbon Dioxide BUN Creatinine Glucose POC Glucose 143 H 150 H Calcium Phosphorus Magnesium Lactate Dehydrogenase C-Reactive Protein Albumin Triglycerides Cholesterol LDL Cholesterol Direct Arterial Blood Glucose Arterial Blood Ionized Calcium 01/23/21 01/23/21 01/23/21 11:27 13:55 17:54 WBC RBC Hgb Hct MCV MCH MCHC RDW Lymph % (Auto) Mora % (Auto) Lymph # (Auto) Seg Neutrophils % Seg Neuts % (Manual) Lymphocytes % (Manual) Seg Neutrophils # Lymphocytes # (Manual) INR APTT ABG pH 7.249 L POC ABG pCO2 83.0 H POC ABG pO2 82.8 L ABG Hemoglobin ABG Oxyhemoglobin ABG Potassium 4.8 H ABG Glucose 236 H Carboxyhemoglobin Sodium Potassium Chloride Carbon Dioxide 33 H BUN 32 H Creatinine 1.6 H D Glucose 146 H POC Glucose 218 H Calcium 8.3 L Phosphorus Magnesium 3.00 H Lactate Dehydrogenase C-Reactive Protein Albumin 3.2 L Triglycerides Cholesterol LDL Cholesterol Direct Arterial Blood Glucose 236 H Arterial Blood Ionized Calcium 4.5 L 01/23/21 01/24/21 01/24/21 17:54 03:11 04:56 WBC RBC Hgb Hct MCV 100 H MCH MCHC RDW 15.4 H Lymph % (Auto) Mora % (Auto) Lymph # (Auto) Seg Neutrophils % Seg Neuts % (Manual) Lymphocytes % (Manual) Seg Neutrophils # Lymphocytes # (Manual) INR APTT ABG pH POC ABG pCO2 POC ABG pO2 ABG Hemoglobin ABG Oxyhemoglobin ABG Potassium ABG Glucose Carboxyhemoglobin Sodium Potassium Chloride Carbon Dioxide BUN Creatinine Glucose POC Glucose 131 H Calcium Phosphorus 2.00 L Magnesium Lactate Dehydrogenase C-Reactive Protein Albumin Triglycerides Cholesterol LDL Cholesterol Direct Arterial Blood Glucose Arterial Blood Ionized Calcium 01/24/21 01/24/21 01/24/21 04:56 05:00 05:47 WBC RBC Hgb Hct MCV MCH MCHC RDW Lymph % (Auto) Mora % (Auto) Lymph # (Auto) Seg Neutrophils % Seg Neuts % (Manual) Lymphocytes % (Manual) Seg Neutrophils # Lymphocytes # (Manual) INR APTT ABG pH 7.473 H POC ABG pCO2 POC ABG pO2 53.9 L ABG Hemoglobin ABG Oxyhemoglobin 90.0 L ABG Potassium ABG Glucose 127 H Carboxyhemoglobin Sodium 147 H D Potassium Chloride Carbon Dioxide 36 H BUN 33 H Creatinine 1.5 H Glucose 128 H POC Glucose 141 H Calcium 8.3 L Phosphorus Magnesium Lactate Dehydrogenase C-Reactive Protein Albumin Triglycerides Cholesterol LDL Cholesterol Direct Arterial Blood Glucose 127 H Arterial Blood Ionized Calcium 4.5 L 01/24/21 01/24/21 01/25/21 08:44 11:27 03:57 WBC RBC Hgb Hct MCV MCH MCHC RDW Lymph % (Auto) Mora % (Auto) Lymph # (Auto) Seg Neutrophils % Seg Neuts % (Manual) Lymphocytes % (Manual) Seg Neutrophils # Lymphocytes # (Manual) INR APTT ABG pH 7.515 H POC ABG pCO2 POC ABG pO2 70.5 L ABG Hemoglobin ABG Oxyhemoglobin ABG Potassium ABG Glucose 150 H Carboxyhemoglobin Sodium Potassium Chloride Carbon Dioxide BUN Creatinine Glucose POC Glucose 127 H Calcium Phosphorus 1.40 L D Magnesium 2.90 H Lactate Dehydrogenase C-Reactive Protein Albumin Triglycerides Cholesterol LDL Cholesterol Direct Arterial Blood Glucose 150 H Arterial Blood Ionized Calcium 4.4 L 01/25/21 01/25/21 01/25/21 04:35 04:35 05:07 WBC RBC Hgb Hct MCV 97 H MCH MCHC RDW 15.3 H Lymph % (Auto) Mora % (Auto) Lymph # (Auto) Seg Neutrophils % Seg Neuts % (Manual) Lymphocytes % (Manual) Seg Neutrophils # Lymphocytes # (Manual) INR APTT ABG pH POC ABG pCO2 POC ABG pO2 ABG Hemoglobin ABG Oxyhemoglobin ABG Potassium ABG Glucose Carboxyhemoglobin Sodium 147 H Potassium 3.5 L D Chloride Carbon Dioxide 37 H BUN 34 H Creatinine Glucose 127 H POC Glucose 117 H Calcium 8.1 L Phosphorus Magnesium Lactate Dehydrogenase C-Reactive Protein Albumin Triglycerides Cholesterol LDL Cholesterol Direct Arterial Blood Glucose Arterial Blood Ionized Calcium 01/25/21 01/25/21 01/25/21 11:15 12:39 17:37 WBC RBC Hgb Hct MCV MCH MCHC RDW Lymph % (Auto) Mora % (Auto) Lymph # (Auto) Seg Neutrophils % Seg Neuts % (Manual) Lymphocytes % (Manual) Seg Neutrophils # Lymphocytes # (Manual) INR APTT ABG pH POC ABG pCO2 POC ABG pO2 ABG Hemoglobin ABG Oxyhemoglobin ABG Potassium ABG Glucose Carboxyhemoglobin Sodium Potassium Chloride Carbon Dioxide BUN Creatinine Glucose POC Glucose 147 H 143 H 142 H Calcium Phosphorus Magnesium Lactate Dehydrogenase C-Reactive Protein Albumin Triglycerides Cholesterol LDL Cholesterol Direct Arterial Blood Glucose Arterial Blood Ionized Calcium 01/25/21 01/26/21 01/26/21 23:08 03:44 04:30 WBC RBC Hgb Hct MCV MCH MCHC RDW Lymph % (Auto) Mora % (Auto) Lymph # (Auto) Seg Neutrophils % Seg Neuts % (Manual) Lymphocytes % (Manual) Seg Neutrophils # Lymphocytes # (Manual) INR APTT ABG pH POC ABG pCO2 49.5 H POC ABG pO2 ABG Hemoglobin ABG Oxyhemoglobin ABG Potassium ABG Glucose 153 H Carboxyhemoglobin Sodium 149 H Potassium Chloride Carbon Dioxide 39 H BUN 35 H Creatinine Glucose 141 H POC Glucose 139 H Calcium 8.3 L Phosphorus Magnesium Lactate Dehydrogenase C-Reactive Protein Albumin Triglycerides Cholesterol LDL Cholesterol Direct Arterial Blood Glucose 153 H Arterial Blood Ionized Calcium 4.5 L 01/26/21 01/26/21 01/26/21 05:31 11:35 12:11 WBC RBC Hgb Hct MCV MCH MCHC RDW Lymph % (Auto) Mora % (Auto) Lymph # (Auto) Seg Neutrophils % Seg Neuts % (Manual) Lymphocytes % (Manual) Seg Neutrophils # Lymphocytes # (Manual) INR APTT ABG pH POC ABG pCO2 POC ABG pO2 ABG Hemoglobin ABG Oxyhemoglobin ABG Potassium ABG Glucose Carboxyhemoglobin Sodium Potassium Chloride Carbon Dioxide BUN Creatinine Glucose POC Glucose 143 H 145 H 161 H Calcium Phosphorus Magnesium Lactate Dehydrogenase C-Reactive Protein Albumin Triglycerides Cholesterol LDL Cholesterol Direct Arterial Blood Glucose Arterial Blood Ionized Calcium 01/26/21 01/26/21 01/26/21 12:12 18:01 23:22 WBC RBC Hgb Hct MCV MCH MCHC RDW Lymph % (Auto) Mora % (Auto) Lymph # (Auto) Seg Neutrophils % Seg Neuts % (Manual) Lymphocytes % (Manual) Seg Neutrophils # Lymphocytes # (Manual) INR APTT ABG pH POC ABG pCO2 POC ABG pO2 ABG Hemoglobin ABG Oxyhemoglobin ABG Potassium ABG Glucose Carboxyhemoglobin Sodium Potassium Chloride Carbon Dioxide BUN Creatinine Glucose POC Glucose 163 H 151 H 143 H Calcium Phosphorus Magnesium Lactate Dehydrogenase C-Reactive Protein Albumin Triglycerides Cholesterol LDL Cholesterol Direct Arterial Blood Glucose Arterial Blood Ionized Calcium 01/27/21 01/27/21 01/27/21 04:00 05:24 06:43 WBC RBC 3.45 L Hgb 11.1 L Hct 34.4 L MCV 100 H MCH MCHC RDW Lymph % (Auto) Mora % (Auto) Lymph # (Auto) Seg Neutrophils % Seg Neuts % (Manual) Lymphocytes % (Manual) Seg Neutrophils # Lymphocytes # (Manual) INR APTT ABG pH POC ABG pCO2 59.3 H POC ABG pO2 73.4 L ABG Hemoglobin ABG Oxyhemoglobin 93.2 L ABG Potassium ABG Glucose 178 H Carboxyhemoglobin Sodium Potassium Chloride Carbon Dioxide BUN Creatinine Glucose POC Glucose 152 H Calcium Phosphorus Magnesium Lactate Dehydrogenase C-Reactive Protein Albumin Triglycerides Cholesterol LDL Cholesterol Direct Arterial Blood Glucose 178 H Arterial Blood Ionized Calcium 4.4 L 01/27/21 01/27/21 01/27/21 06:43 11:35 16:39 WBC RBC Hgb Hct MCV MCH MCHC RDW Lymph % (Auto) Mora % (Auto) Lymph # (Auto) Seg Neutrophils % Seg Neuts % (Manual) Lymphocytes % (Manual) Seg Neutrophils # Lymphocytes # (Manual) INR APTT ABG pH POC ABG pCO2 POC ABG pO2 ABG Hemoglobin ABG Oxyhemoglobin ABG Potassium ABG Glucose Carboxyhemoglobin Sodium 148 H Potassium Chloride Carbon Dioxide 40 H BUN 40 H Creatinine Glucose 166 H POC Glucose 146 H 168 H Calcium Phosphorus Magnesium Lactate Dehydrogenase C-Reactive Protein Albumin Triglycerides Cholesterol LDL Cholesterol Direct Arterial Blood Glucose Arterial Blood Ionized Calcium 01/27/21 01/28/21 01/28/21 23:14 03:29 04:51 WBC RBC Hgb Hct MCV MCH MCHC RDW Lymph % (Auto) Mora % (Auto) Lymph # (Auto) Seg Neutrophils % Seg Neuts % (Manual) Lymphocytes % (Manual) Seg Neutrophils # Lymphocytes # (Manual) INR APTT ABG pH POC ABG pCO2 57.3 H POC ABG pO2 67.1 L ABG Hemoglobin 11.8 L ABG Oxyhemoglobin 91.5 L ABG Potassium ABG Glucose 172 H Carboxyhemoglobin Sodium Potassium Chloride Carbon Dioxide BUN Creatinine Glucose POC Glucose 140 H 166 H Calcium Phosphorus Magnesium Lactate Dehydrogenase C-Reactive Protein Albumin Triglycerides Cholesterol LDL Cholesterol Direct Arterial Blood Glucose 172 H Arterial Blood Ionized Calcium 4.4 L 01/28/21 01/28/21 01/28/21 05:51 05:51 10:01 WBC RBC 3.39 L Hgb 11.1 L Hct 33.9 L MCV 100 H MCH 33 H MCHC RDW Lymph % (Auto) Mora % (Auto) Lymph # (Auto) Seg Neutrophils % Seg Neuts % (Manual) Lymphocytes % (Manual) Seg Neutrophils # Lymphocytes # (Manual) INR APTT 42.8 H ABG pH POC ABG pCO2 POC ABG pO2 ABG Hemoglobin ABG Oxyhemoglobin ABG Potassium ABG Glucose Carboxyhemoglobin Sodium Potassium Chloride Carbon Dioxide 36 H BUN 46 H Creatinine 1.4 H Glucose 157 H POC Glucose Calcium Phosphorus Magnesium Lactate Dehydrogenase C-Reactive Protein Albumin Triglycerides Cholesterol LDL Cholesterol Direct Arterial Blood Glucose Arterial Blood Ionized Calcium 01/28/21 01/28/21 01/28/21 10:01 11:14 17:36 WBC RBC Hgb Hct MCV MCH MCHC RDW Lymph % (Auto) Mora % (Auto) Lymph # (Auto) Seg Neutrophils % Seg Neuts % (Manual) Lymphocytes % (Manual) Seg Neutrophils # Lymphocytes # (Manual) INR APTT ABG pH POC ABG pCO2 POC ABG pO2 ABG Hemoglobin ABG Oxyhemoglobin ABG Potassium ABG Glucose Carboxyhemoglobin Sodium Potassium Chloride Carbon Dioxide BUN Creatinine 1.4 H Glucose POC Glucose 157 H 127 H Calcium Phosphorus Magnesium Lactate Dehydrogenase C-Reactive Protein Albumin Triglycerides Cholesterol LDL Cholesterol Direct Arterial Blood Glucose Arterial Blood Ionized Calcium 01/28/21 01/29/21 01/29/21 23:18 02:52 04:53 WBC RBC Hgb Hct MCV MCH MCHC RDW Lymph % (Auto) Mora % (Auto) Lymph # (Auto) Seg Neutrophils % Seg Neuts % (Manual) Lymphocytes % (Manual) Seg Neutrophils # Lymphocytes # (Manual) INR APTT ABG pH POC ABG pCO2 72.6 H POC ABG pO2 58.0 L ABG Hemoglobin 11.6 L ABG Oxyhemoglobin 86.5 L ABG Potassium ABG Glucose 179 H Carboxyhemoglobin Sodium Potassium Chloride Carbon Dioxide BUN Creatinine Glucose POC Glucose 146 H 146 H Calcium Phosphorus Magnesium Lactate Dehydrogenase C-Reactive Protein Albumin Triglycerides Cholesterol LDL Cholesterol Direct Arterial Blood Glucose 179 H Arterial Blood Ionized Calcium 4.4 L 01/29/21 01/29/21 01/29/21 07:03 07:03 11:14 WBC RBC 3.29 L Hgb 10.6 L Hct 32.4 L MCV 99 H MCH MCHC RDW Lymph % (Auto) Mora % (Auto) Lymph # (Auto) Seg Neutrophils % Seg Neuts % (Manual) Lymphocytes % (Manual) Seg Neutrophils # Lymphocytes # (Manual) INR APTT ABG pH POC ABG pCO2 POC ABG pO2 ABG Hemoglobin ABG Oxyhemoglobin ABG Potassium ABG Glucose Carboxyhemoglobin Sodium Potassium Chloride 97.6 L Carbon Dioxide 36 H BUN 63 H Creatinine 1.8 H Glucose 180 H POC Glucose 162 H Calcium Phosphorus Magnesium Lactate Dehydrogenase C-Reactive Protein Albumin Triglycerides 157 H Cholesterol LDL Cholesterol Direct Arterial Blood Glucose Arterial Blood Ionized Calcium 01/29/21 01/29/21 01/29/21 14:13 14:37 17:54 WBC RBC Hgb 10.5 L Hct 32.7 L MCV MCH MCHC RDW Lymph % (Auto) Mora % (Auto) Lymph # (Auto) Seg Neutrophils % Seg Neuts % (Manual) Lymphocytes % (Manual) Seg Neutrophils # Lymphocytes # (Manual) INR APTT ABG pH POC ABG pCO2 66.4 H POC ABG pO2 ABG Hemoglobin 11.3 L ABG Oxyhemoglobin ABG Potassium ABG Glucose 174 H Carboxyhemoglobin 0.3 L Sodium Potassium Chloride Carbon Dioxide BUN Creatinine Glucose POC Glucose 148 H Calcium Phosphorus Magnesium Lactate Dehydrogenase C-Reactive Protein Albumin Triglycerides Cholesterol LDL Cholesterol Direct Arterial Blood Glucose 174 H Arterial Blood Ionized Calcium 4.4 L 01/29/21 01/30/21 01/30/21 22:48 00:24 03:14 WBC RBC Hgb 10.2 L Hct 31.1 L MCV MCH MCHC RDW Lymph % (Auto) Mora % (Auto) Lymph # (Auto) Seg Neutrophils % Seg Neuts % (Manual) Lymphocytes % (Manual) Seg Neutrophils # Lymphocytes # (Manual) INR APTT ABG pH POC ABG pCO2 56.1 H POC ABG pO2 ABG Hemoglobin 11.0 L ABG Oxyhemoglobin ABG Potassium ABG Glucose 120 H Carboxyhemoglobin 0.3 L Sodium Potassium Chloride Carbon Dioxide BUN Creatinine Glucose POC Glucose 133 H Calcium Phosphorus Magnesium Lactate Dehydrogenase C-Reactive Protein Albumin Triglycerides Cholesterol LDL Cholesterol Direct Arterial Blood Glucose 120 H Arterial Blood Ionized Calcium 4.5 L 01/30/21 01/30/21 01/30/21 05:32 07:20 07:20 WBC 11.6 H RBC 3.27 L Hgb 10.1 L Hct 32.1 L MCV 98 H MCH MCHC 31 L RDW Lymph % (Auto) 3.9 L Mora % (Auto) Lymph # (Auto) 0.5 L Seg Neutrophils % 88.8 H Seg Neuts % (Manual) Lymphocytes % (Manual) Seg Neutrophils # 10.3 H Lymphocytes # (Manual) INR APTT ABG pH POC ABG pCO2 POC ABG pO2 ABG Hemoglobin ABG Oxyhemoglobin ABG Potassium ABG Glucose Carboxyhemoglobin Sodium 147 H Potassium Chloride Carbon Dioxide 36 H BUN 89 H Creatinine 2.8 H D Glucose 126 H POC Glucose 115 H Calcium Phosphorus Magnesium Lactate Dehydrogenase C-Reactive Protein Albumin Triglycerides Cholesterol LDL Cholesterol Direct Arterial Blood Glucose Arterial Blood Ionized Calcium 01/30/21 11:33 WBC RBC Hgb Hct MCV MCH MCHC RDW Lymph % (Auto) Mora % (Auto) Lymph # (Auto) Seg Neutrophils % Seg Neuts % (Manual) Lymphocytes % (Manual) Seg Neutrophils # Lymphocytes # (Manual) INR APTT ABG pH POC ABG pCO2 POC ABG pO2 ABG Hemoglobin ABG Oxyhemoglobin ABG Potassium ABG Glucose Carboxyhemoglobin Sodium Potassium Chloride Carbon Dioxide BUN Creatinine Glucose POC Glucose 143 H Calcium Phosphorus Magnesium Lactate Dehydrogenase C-Reactive Protein Albumin Triglycerides Cholesterol LDL Cholesterol Direct Arterial Blood Glucose Arterial Blood Ionized Calcium Allied health notes reviewed: nursing
--- NOTE | 2021-01-30 14:37 | Progress Note ---
Assessment and Plan This is a 65-year-old male with atrial fibrillation on Eliquis, hypertension, and diabetes who is admitted with suspected pneumonia, acute hypoxic respiratory failure, COVID-19 PUI, CVA and with hypertensive urgency Acute hypoxic respiratory failure Remote Right MCA CVA Shock/hypotension Seizure disorder Right middle and lower lobe pneumonia Acute metabolic encephalopathy Hypertensive urgency Type 2 diabetes Atrial fibrillation Hypernatremia Hyperchloremia Acute GI bleed -[facility], cardiology, neurology consulted, appreciate recommendations -01/20 CT head shows a well-defined area of decreased attenuation in the right parietal lobe, limited imagery secondary to artifact. MRI brain recommended for further work-up -01/20 CT chest shows possible mild inflammatory process in the right middle and right lower lobe -01/20 MRI brain pending -01/23 CT head shows no acute focal parenchymal lesion in the brain, no change to right middle frontal gyrus chronic ischemia -01/23/21 2d echo showed EF 50-55% -01/23 CXR shows right infrahilar opacity consistent with large areas of atelectasis of the right middle or lower lobe. 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 -01/26 CT head shows remote right MCA - EEG pending, MRI brain pending -Intubated 01/23 -VAP bundle, wean mechanical ventilation as tolerated -s/p IV antibiotics -Aspirin, Lipitor -Sedated with propofol -s/p vasopressor support with Levophed -Hold antihypertensive regimen and setting of needing vasopressor support, resume as tolerated -Neurochecks per protocol -Accu-Cheks every 6, SSI -Seizure precautions -Tube feedings -Trend BMP, CBC DVT/GI prophylaxis: Heparin subcu, PPIm SCDs to BLE while in bed Disposition: ICU The high probability of a clinically significant, sudden or life threatening deterioration of the [Respiratory, neuro, metabolic, infectious,] system(s) required my full and direct attention, intervention and personal management. The aggregate critical care time was [34] minutes. This time is in addition to time spent performing reported procedures but includes the following: [x] Data Review and interpretation [x] Patient assessment and monitoring of vital signs [x] Documentation [x] Medication orders and management Brief history: This is a 65-year-old male with atrial fibrillation on Eliquis, hypertension, and diabetes who presents to the emergency on 01/20 with complaints of progressive generalized weakness, gait unsteadiness, cough and fever. Upon EMS arrival patient was febrile with a temperature of 102 and hypoxic with SPO2 in the 70s on room air. Work-up in the emergency department included a CT scan of his chest which showed possible mild inflammatory process in his right middle and lower lobe, CT head was admitted secondary to artifact but noted a low- density area in the right parietal lobe. Patient was admitted to the hospitalist service with suspected pneumonia, acute hypoxic respiratory failure, COVID-19 PUI, rule out CVA and with hypertensive urgency. Neurology was consulted. repeat CT head on 01/28/21 showed remote right MCA infarction.. Daily clinical course: 01/22/2021; neuro work-up is in progress, follow PT OT eval. Neurology consult, continue antibiotics and supportive care 01/23/2021; patient went into acute respiratory failure requiring intubation and ventilatory support. Patient is transferred to ICU, pulmonary critical consulted, hypotensive started on Levophed. Pulmonary critical, cardiology and neurology following the patient. updated by Dr. Cho 01/24: Patient is awaiting further neuro imaging and is restrained the time my examination. Patient is not sedated and on assist control tidal volume 500, rate of 24, PEEP of 8 on FiO2 70%. Patient is severely agitated and is started on propofol drip per [facility]. He has hypophosphatemia today which was repleted. We will repeat BMP and phosphate level in the a.m. 01/25: Patient has hypokalemia today which was repleted today. Cr decreased to 1.2 from 1.5. Hypophosphatemia is resolved. Awaiting MRI brain. Sedated with propofol and on AC TV 500, R 20, PEEP 10, on FiO2 80%. Levophed was off at the time of my examination. Awaiting MRI . 01/26: The time my examination patient is sedated on propofol and this morning he has worsening hypernatremia and creatinine. The time examination patient is on assist control tidal volume 500, rate of 16, PEEP of 10 and 80% FiO2. Patient will follow commands with sedation vacation. Neurology ordered a repeat CT head bleed to assess if patient can be restarted on p.o. anticoagulation. We will increase the water flushes. 01/27: CTH obtained yesterday shows evidence of remote right MCA infarct. Patient remains sedated with Propofol and on MV AC TV 500, R 16, PEEP 10 and FiO2 80%. Bowel regimen started, will continue to trend CBC/BMP. 01/28 Patient with acute respiratory failure, afib, hypertension. Remote right MCA stroke seen on CT Head done on 01/26. Neurology following. Completed Rocephin and Zithromax for pneumonia 01/29: Noted coffee-ground discharges from [facility] today, hold any heparin product and aspirin. Started on Protonix drip. Monitor H&H every 8 hours consulted GI. Hold tube feeding for now. 01/30: Noted to have recurrent nose bleed from left nostrils. discussed with RN to apply epinephrine spray and nasal packing. Continue to monitor H&H. Continue PPI. Creatinine trending up consulted nephrology, also started on half-normal saline. Monitor BMP. GI recommended conservative management. Continue to follow. Subjective Date of service: 01/30/21 Principal diagnosis: CVA Interval history: Patient seen and examined. Medical records and medication list reviewed. No acute event overnight noted by the RN. Patient on MV, sedated noted bloody discharge from left nostril Discussed plan of care at bedside with patient's RN. Objective - Exam Narrative Exam: - Physical exam Narrative exam: General appearance: Present: no acute distress, obese, other (sedated on mechanical ventilation) - EENT Eyes: Present: PERRL ENT: clear oral mucosa, noted bloody discharge from left nostril - Neck Neck: Present: normal ROM - Respiratory Respiratory effort: normal Respiratory: bilateral: diminished - Cardiovascular Rhythm: regular Heart Sounds: Present: S1 & S2. Absent: systolic murmur, diastolic murmur - Extremities Extremities: no ischemia, pulses intact, pulses symmetrical, No edema, normal temperature, normal color Peripheral Pulses: within normal limits - Abdominal General gastrointestinal: soft, non-tender, non-distended, normal bowel sounds - Integumentary Integumentary: Present: warm, dry - Psychiatric Psychiatric: cooperative, agitated - Neurologic Neurologic: moves all extremities - Allied Health Allied health notes reviewed: nursing, RT - Constitutional Vitals: Vital Signs - 12hr 01/30/21 01/30/21 01/30/21 02:41 02:51 03:01 Temperature Pulse Rate 96 H 91 H 96 H Pulse Rate [ From Monitor] Respiratory 11 L 13 18 Rate Blood Pressure 137/92 137/92 149/92 O2 Sat by Pulse 98 97 97 Oximetry 01/30/21 01/30/21 01/30/21 03:11 03:21 03:31 Temperature Pulse Rate 89 91 H 96 H Pulse Rate [ From Monitor] Respiratory 15 24 22 Rate Blood Pressure 149/92 149/92 149/92 O2 Sat by Pulse 97 97 97 Oximetry 01/30/21 01/30/21 01/30/21 03:41 03:51 03:55 Temperature 101.0 F H Pulse Rate 91 H 101 H Pulse Rate [ From Monitor] Respiratory 24 17 Rate Blood Pressure 149/92 149/92 O2 Sat by Pulse 95 97 Oximetry 01/30/21 01/30/21 01/30/21 04:00 04:09 04:11 Temperature Pulse Rate 95 H 93 H 93 H Pulse Rate [ 91 H From Monitor] Respiratory 21 23 Rate Blood Pressure 128/90 128/90 128/90 O2 Sat by Pulse 96 96 96 Oximetry 01/30/21 01/30/21 01/30/21 04:21 04:31 04:41 Temperature Pulse Rate 93 H 93 H 90 Pulse Rate [ From Monitor] Respiratory 20 13 27 H Rate Blood Pressure 128/90 128/90 128/90 O2 Sat by Pulse 97 97 97 Oximetry 01/30/21 01/30/21 01/30/21 04:51 05:00 05:11 Temperature Pulse Rate 97 H 94 H 99 H Pulse Rate [ From Monitor] Respiratory 19 25 H 15 Rate Blood Pressure 128/90 136/84 136/84 O2 Sat by Pulse 97 97 96 Oximetry 01/30/21 01/30/21 01/30/21 05:21 05:31 05:41 Temperature Pulse Rate 93 H 97 H 93 H Pulse Rate [ From Monitor] Respiratory 17 15 15 Rate Blood Pressure 136/84 136/84 136/84 O2 Sat by Pulse 96 94 96 Oximetry 01/30/21 01/30/21 01/30/21 05:51 06:00 06:11 Temperature Pulse Rate 95 H 94 H 92 H Pulse Rate [ From Monitor] Respiratory 16 14 13 Rate Blood Pressure 136/84 145/85 145/85 O2 Sat by Pulse 97 97 98 Oximetry 01/30/21 01/30/21 01/30/21 06:21 06:31 06:41 Temperature Pulse Rate 98 H 92 H 98 H Pulse Rate [ From Monitor] Respiratory 14 17 18 Rate Blood Pressure 145/85 145/85 145/85 O2 Sat by Pulse 96 98 98 Oximetry 01/30/21 01/30/21 01/30/21 06:51 07:00 08:00 Temperature 100.3 F H Pulse Rate 98 H 90 106 H Pulse Rate [ 92 H From Monitor] Respiratory 18 17 15 Rate Blood Pressure 145/85 124/82 140/89 O2 Sat by Pulse 96 98 96 Oximetry 01/30/21 01/30/21 01/30/21 08:33 08:36 09:01 Temperature Pulse Rate 97 H 98 H 97 H Pulse Rate [ From Monitor] Respiratory 13 Rate Blood Pressure 140/89 140/89 142/89 O2 Sat by Pulse 96 96 97 Oximetry 01/30/21 01/30/21 01/30/21 10:00 11:01 11:38 Temperature Pulse Rate 106 H 100 H 111 H Pulse Rate [ From Monitor] Respiratory 13 17 Rate Blood Pressure 129/71 118/71 118/71 O2 Sat by Pulse 96 96 97 Oximetry 01/30/21 01/30/21 01/30/21 11:48 12:00 13:35 Temperature 103.1 F H Pulse Rate 102 H Pulse Rate [ 103 H From Monitor] Respiratory 18 14 20 Rate Blood Pressure 121/75 O2 Sat by Pulse 95 96 Oximetry - Labs CBC & Chem 7: 02/02/21 04:40 02/02/21 04:40 Labs: Abnormal lab results 01/29/21 01/29/21 01/29/21 Range/Units 14:37 17:54 22:48 WBC (4.5-11.0) K/mm3 RBC (3.65-5.03) M/mm3 Hgb 10.5 L 10.2 L (11.8-15.2) gm/dl Hct 32.7 L 31.1 L (35.5-45.6) % MCV (84-94) fl MCHC (32-34) % Lymph % (Auto) (13.4-35.0) % Lymph # (Auto) (1.2-5.4) K/mm3 Seg Neutrophils % (40.0-70.0) % Seg Neutrophils # (1.8-7.7) K/mm3 POC ABG pCO2 (32.0-48.0) mmHg ABG Hemoglobin (12.0-17.5) ABG Glucose (65-95) mg/dL Carboxyhemoglobin (0.5-1.5) Sodium (137-145) mmol/L Carbon Dioxide (22-30) mmol/L BUN (9-20) mg/dL Creatinine (0.8-1.3) mg/dL Glucose (75-100) mg/dL POC Glucose 148 H (70-105) mg/dL Arterial Blood Glucose (65-95) mg/dL Arterial Blood Ionized Calcium (4.6-5.3) mg/dL 01/30/21 01/30/21 01/30/21 Range/Units 00:24 03:14 05:32 WBC (4.5-11.0) K/mm3 RBC (3.65-5.03) M/mm3 Hgb (11.8-15.2) gm/dl Hct (35.5-45.6) % MCV (84-94) fl MCHC (32-34) % Lymph % (Auto) (13.4-35.0) % Lymph # (Auto) (1.2-5.4) K/mm3 Seg Neutrophils % (40.0-70.0) % Seg Neutrophils # (1.8-7.7) K/mm3 POC ABG pCO2 56.1 H (32.0-48.0) mmHg ABG Hemoglobin 11.0 L (12.0-17.5) ABG Glucose 120 H (65-95) mg/dL Carboxyhemoglobin 0.3 L (0.5-1.5) Sodium (137-145) mmol/L Carbon Dioxide (22-30) mmol/L BUN (9-20) mg/dL Creatinine (0.8-1.3) mg/dL Glucose (75-100) mg/dL POC Glucose 133 H 115 H (70-105) mg/dL Arterial Blood Glucose 120 H (65-95) mg/dL Arterial Blood Ionized Calcium 4.5 L (4.6-5.3) mg/dL 01/30/21 01/30/21 01/30/21 Range/Units 07:20 07:20 11:33 WBC 11.6 H (4.5-11.0) K/mm3 RBC 3.27 L (3.65-5.03) M/mm3 Hgb 10.1 L (11.8-15.2) gm/dl Hct 32.1 L (35.5-45.6) % MCV 98 H (84-94) fl MCHC 31 L (32-34) % Lymph % (Auto) 3.9 L (13.4-35.0) % Lymph # (Auto) 0.5 L (1.2-5.4) K/mm3 Seg Neutrophils % 88.8 H (40.0-70.0) % Seg Neutrophils # 10.3 H (1.8-7.7) K/mm3 POC ABG pCO2 (32.0-48.0) mmHg ABG Hemoglobin (12.0-17.5) ABG Glucose (65-95) mg/dL Carboxyhemoglobin (0.5-1.5) Sodium 147 H (137-145) mmol/L Carbon Dioxide 36 H (22-30) mmol/L BUN 89 H (9-20) mg/dL Creatinine 2.8 H D (0.8-1.3) mg/dL Glucose 126 H (75-100) mg/dL POC Glucose 143 H (70-105) mg/dL Arterial Blood Glucose (65-95) mg/dL Arterial Blood Ionized Calcium (4.6-5.3) mg/dL HEART Score - HEART Score Troponin: Troponin T < 0.010 ng/mL (0.00-0.029) 01/20/21 19:26
--- NOTE | 2021-01-30 15:13 | Progress Note ---
Assessment and Plan Cultures: Blood culture 01/20/2021 no growth so far Urine culture 01/20/2021 no growth so far Sputum culture 01/22/2021 Berta A/P: 65-year-old man past medical history diabetes, hypertension, A. fib presented to the hospital with weakness, now intubated, sedated with possible CVA. #Acute hypoxic respiratory failure: on the vent. Procalcitonin 0.52 in the setting of [place] #Sirs/sepsis: central vs infectious etiology. Infectious workup negative so far. Given probably acute CVA with possible evolution may be central etiology #CVA #[place]: worse than on admission. Recs: -Follow up repeat blood cultures -Continue renally dosed cefepime Thank you for the consult, we will continue to follow. Maria Del Carmen Parker MD [facility] O: [phone] F: [phone] Subjective Date of service: 01/30/21 Principal diagnosis: CVA Interval history: Febrile to 103.1 with a white count 11.6. Imaging personally reviewed: Chest x-ray: Worsening of bilateral airspace opacities Objective - Exam Narrative Exam: Physical Exam: Constitutional: intubated Head, Ears, Nose: Normocephalic, atraumatic. Eyes: Conjunctivae/corneas clear. No icterus. No ptosis. Neck: ETT Oral: ETT Cardiovascular: S1, S2 normal. Respiratory: Good air entry, clear to auscultation bilaterally GI: Soft, non-tender; bowel sounds normal. No peritoneal signs. Musculoskeletal: No pedal edema, no cyanosis. Skin: No rash or abscess Hem/Lymphatic: No palpable cervical or supraclavicular nodes. No lymphangitis Psych: no agitation. Neurological: no agitation - Constitutional Vitals: Vital Signs Temp Pulse Resp BP Pulse Ox 103.1 F H 102 H 20 121/75 96 01/30/21 12:00 01/30/21 12:00 01/30/21 13:35 01/30/21 12:00 01/30/21 12:00 Temperature -Last 24 Hours Temperature 103.1 F Temperature 100.3 F Temperature 101.0 F Temperature 100.7 F Temperature 100.5 F Temperature 100.8 F - Labs CBC & Chem 7: 01/30/21 07:20 01/30/21 07:20 Labs: Abnormal lab results 01/29/21 01/29/21 01/29/21 Range/Units 14:37 17:54 22:48 WBC (4.5-11.0) K/mm3 RBC (3.65-5.03) M/mm3 Hgb 10.5 L 10.2 L (11.8-15.2) gm/dl Hct 32.7 L 31.1 L (35.5-45.6) % MCV (84-94) fl MCHC (32-34) % Lymph % (Auto) (13.4-35.0) % Lymph # (Auto) (1.2-5.4) K/mm3 Seg Neutrophils % (40.0-70.0) % Seg Neutrophils # (1.8-7.7) K/mm3 POC ABG pCO2 (32.0-48.0) mmHg ABG Hemoglobin (12.0-17.5) ABG Glucose (65-95) mg/dL Carboxyhemoglobin (0.5-1.5) Sodium (137-145) mmol/L Carbon Dioxide (22-30) mmol/L BUN (9-20) mg/dL Creatinine (0.8-1.3) mg/dL Glucose (75-100) mg/dL POC Glucose 148 H (70-105) mg/dL Arterial Blood Glucose (65-95) mg/dL Arterial Blood Ionized Calcium (4.6-5.3) mg/dL 01/30/21 01/30/21 01/30/21 Range/Units 00:24 03:14 05:32 WBC (4.5-11.0) K/mm3 RBC (3.65-5.03) M/mm3 Hgb (11.8-15.2) gm/dl Hct (35.5-45.6) % MCV (84-94) fl MCHC (32-34) % Lymph % (Auto) (13.4-35.0) % Lymph # (Auto) (1.2-5.4) K/mm3 Seg Neutrophils % (40.0-70.0) % Seg Neutrophils # (1.8-7.7) K/mm3 POC ABG pCO2 56.1 H (32.0-48.0) mmHg ABG Hemoglobin 11.0 L (12.0-17.5) ABG Glucose 120 H (65-95) mg/dL Carboxyhemoglobin 0.3 L (0.5-1.5) Sodium (137-145) mmol/L Carbon Dioxide (22-30) mmol/L BUN (9-20) mg/dL Creatinine (0.8-1.3) mg/dL Glucose (75-100) mg/dL POC Glucose 133 H 115 H (70-105) mg/dL Arterial Blood Glucose 120 H (65-95) mg/dL Arterial Blood Ionized Calcium 4.5 L (4.6-5.3) mg/dL 01/30/21 01/30/21 01/30/21 Range/Units 07:20 07:20 11:33 WBC 11.6 H (4.5-11.0) K/mm3 RBC 3.27 L (3.65-5.03) M/mm3 Hgb 10.1 L (11.8-15.2) gm/dl Hct 32.1 L (35.5-45.6) % MCV 98 H (84-94) fl MCHC 31 L (32-34) % Lymph % (Auto) 3.9 L (13.4-35.0) % Lymph # (Auto) 0.5 L (1.2-5.4) K/mm3 Seg Neutrophils % 88.8 H (40.0-70.0) % Seg Neutrophils # 10.3 H (1.8-7.7) K/mm3 POC ABG pCO2 (32.0-48.0) mmHg ABG Hemoglobin (12.0-17.5) ABG Glucose (65-95) mg/dL Carboxyhemoglobin (0.5-1.5) Sodium 147 H (137-145) mmol/L Carbon Dioxide 36 H (22-30) mmol/L BUN 89 H (9-20) mg/dL Creatinine 2.8 H D (0.8-1.3) mg/dL Glucose 126 H (75-100) mg/dL POC Glucose 143 H (70-105) mg/dL Arterial Blood Glucose (65-95) mg/dL Arterial Blood Ionized Calcium (4.6-5.3) mg/dL
[2021-01-30 15:59] LABS: Hematocrit 31.7 % (35.5-45.6); Hemoglobin 10.2 gm/dl (11.8-15.2)
--- NOTE | 2021-01-30 18:23 | Ultrasound Report ---
Renal ultrasound INDICATION: Acute renal failure FINDINGS: Both kidneys measure about 12 cm in length. No hydronephrosis. Urinary bladder is unremarka ble IMPRESSION: No acute findings. Signer Name: Michael Givens MD Signed: 01/30/2021 6:19 PM Workstation Name: [id number]
[2021-01-30 19:14] LABS: Bacteria,Urine 2+ /HPF (Negative); Bilirubin,Urine NEG (Negative); Blood,Urine SM (Negative); Color,Urine Amber (Yellow); Mucus,Urine FEW /HPF; Sperm,Urine FEW /HPF (NP)
[2021-01-30 19:15] LABS: Protein,Urine >500 mg/dL (Negative)
[2021-01-30 19:17] LABS: Creatinine,Urine 132.3 mg/dL (0.1-20.0)
[2021-01-30 19:29] LABS: Protein/Creatinine Ratio,Urine 3.81
[2021-01-30] MEDS ORDERED: CEFEPIME/NS 2 GM/100 ML 2 GM/100 ML BAG IV SCH (22:00)
[2021-01-30 23:26] LABS: Hematocrit 29.5 % (35.5-45.6); Hemoglobin 9.9 gm/dl (11.8-15.2)
[2021-01-31] MEDS: OXYMETAZOLINE 0.05% NASAL SPRAY NS SCH ×2 (00:32→14:41)
[2021-01-31] MEDS: INSULIN LISPRO 100 UNIT/ML SUB-Q SCH ×4 (00:34→17:43)
[2021-01-31] MEDS: ACETAMINOPHEN 650 MG RECT SUPP PR PRN ×2 (00:35→04:40)
[2021-01-31 06:21] LABS: Calcium 8.1 mg/dL (8.4-10.2)
[2021-01-31] MEDS: PANTOPRAZOLE 80 MG in SODIUM CHLORIDE 0.9% 100 ML IV SCH ×2 (06:58→19:34)
--- NOTE | 2021-01-31 09:30 | Progress Note ---
Assessment and Plan 65 y/o male with acute respiratory failure secondary to altered mental state from possible stroke vs worsening stroke with hypotension requiring pressors. 01/31/21: will place HD catheter. SPoke with renal who will speak with family. Increased PEEP yesterday to 12, may increase to 14 given CXR appearance but if HD is about to happen soon, will wait another 24 and see how much volume removal helps. Suggest speaking with specialty finishing utility person neurology and ask them to reassess the patient as he continues to not move his arms. Also need to know if the MRI is to be done with contrast. Continue supportive measures. Guarded prognosis. 01/30/21: Need to re-order MRI. NOw that kidney function is worse, likely not able to get contrast. Neurology has signed off so unable to ask them. Follow up renal recs. Patient is still making urine and lytes are ok. Down to 70% now with good sats. Continue to wean for Sats >88%. Very very guarded prognosis. 01/29/21: If pump is working, will obtain MRI. Will bronch patient today given increase in oxygen requirement and blood in nose and og tube. Worsening renal function now. Need to send urine lytes and obtain renal ultrasound. Guarded prognosis. Will pack nares with Affrin coated gauze. 01/28/21: Neurology has signed off. Will speak with CM about possible LTACH. They (neuro) are still asking for MRI, but not sure how this will interchange agent if they have signed off. Ok with anticoagulation and aggressive lipid control. No BM yet, BUN up to 46 but HgB has stayed the same. Will continue to monitor. 01/27/21: Stop Lasix therapy. Follow up any new neurology recs based on new head CT findings. Concern for possible bleeding given rise in BUN and drop in H/H, although patient could have been hemoconcentrated. Will start Bowel Regimen and be mindful of color of stool. No obvious bleeding has been witnessed. Continue to wean sedation for rass of 0 if possible. Wean Vent for sats >88%. I dropped FiO2 down to 75 this morning. Guarded prognosis. 01/26/21: Continue supportive measures. Agree with repeat Head CT. Sedation for patient safety but needs daily vacations. Guarded prognosis. 1. Place central line 2. Place art line 3. Vasopressor therapy 4. No sedation as of right now 5. Consider repeat CT head 6. Guarded prognosis. CCT 31 minutes. Subjective Date of service: 01/31/21 Principal diagnosis: CVA Interval history: Worsening renal function. CXR appears to be consistent with pulmonary edema. patient remains off sedation. Awake and alert but I called the to obtain consent for dialysis catheter placement. Was on 70% FiO2 but now on 75. Objective Vital Signs - 12hr 01/30/21 01/30/21 01/30/21 22:01 22:15 23:00 Temperature Pulse Rate 96 H 101 H 94 H Pulse Rate [ From Monitor] Respiratory 18 17 18 Rate Blood Pressure 116/75 116/75 108/66 O2 Sat by Pulse 97 96 96 Oximetry 01/31/21 01/31/21 01/31/21 00:00 00:01 00:16 Temperature 102.7 F H Pulse Rate 101 H 115 H 101 H Pulse Rate [ 115 H From Monitor] Respiratory 16 16 Rate Blood Pressure 128/80 128/80 O2 Sat by Pulse 97 97 97 Oximetry 01/31/21 01/31/21 01/31/21 01:00 02:00 03:00 Temperature Pulse Rate 109 H 103 H 101 H Pulse Rate [ From Monitor] Respiratory 19 17 16 Rate Blood Pressure 108/66 98/74 108/75 O2 Sat by Pulse 95 95 95 Oximetry 01/31/21 01/31/21 01/31/21 04:00 05:00 06:00 Temperature 102.6 F H Pulse Rate 110 H 96 H 96 H Pulse Rate [ 110 H From Monitor] Respiratory 12 16 17 Rate Blood Pressure 108/81 105/67 107/66 O2 Sat by Pulse 87 94 98 Oximetry 01/31/21 01/31/21 07:00 08:00 Temperature 103.1 F H Pulse Rate 80 Pulse Rate [ 93 H From Monitor] Respiratory 16 Rate Blood Pressure 114/67 O2 Sat by Pulse 93 Oximetry Constitutional: comatose Eyes: non-icteric ENT: other (orally intubated, no sedation) Neck: supple Effort: normal Ascultation: Bilateral: diminished breath sounds Percussion: Bilateral: not dull Cardiovascular: irregular rhythm Gastrointestinal: normoactive bowel sounds, absent bowel sounds Integumentary: normal Extremities: no edema, pulses normal Neurologic: unable to assess CBC and BMP: 01/30/21 23:10 01/31/21 05:45 ABG, PT/INR, D-dimer: ABG ABG pH 7.383 (7.320-7.450) 01/31/21 05:00 POC ABG pCO2 55.0 mmHg (32.0-48.0) H 01/31/21 05:00 POC ABG pO2 73.2 mmHg (83-108) L 01/31/21 05:00 POC ABG HCO3 32.0 01/31/21 05:00 ABG O2 Saturation 93.4 (0-100) 01/31/21 05:00 PT/INR, D-dimer PT 14.2 Sec. (12.2-14.9) 01/28/21 10:01 INR 1.05 (0.87-1.13) 01/28/21 10:01 D-Dimer 229.34 ng/mlDDU (0-234) 01/20/21 23:20 Abnormal lab findings: Abnormal Labs 01/20/21 01/20/21 01/20/21 19:26 19:26 23:20 WBC RBC Hgb 15.3 H Hct 45.8 H MCV 98 H MCH 33 H MCHC RDW Lymph % (Auto) 5.2 L Dickenson % (Auto) 10.4 H Lymph # (Auto) 0.3 L Seg Neutrophils % 82.9 H Seg Neuts % (Manual) Lymphocytes % (Manual) Seg Neutrophils # Lymphocytes # (Manual) INR APTT ABG pH POC ABG pCO2 POC ABG pO2 ABG Hemoglobin ABG Oxyhemoglobin ABG Potassium ABG Glucose Carboxyhemoglobin Sodium Potassium Chloride 97.8 L Carbon Dioxide 33 H BUN Creatinine Glucose 127 H POC Glucose Calcium Phosphorus Magnesium Lactate Dehydrogenase 384 H C-Reactive Protein 2.70 H Albumin Triglycerides Cholesterol LDL Cholesterol Direct Arterial Blood Glucose Arterial Blood Ionized Calcium Urine Creatinine Urine Total Protein 01/21/21 01/21/21 01/21/21 00:17 05:45 05:45 WBC RBC Hgb 15.9 H Hct 47.9 H MCV 98 H MCH 33 H MCHC RDW 15.3 H Lymph % (Auto) Dickenson % (Auto) Lymph # (Auto) Seg Neutrophils % Seg Neuts % (Manual) 96.0 H Lymphocytes % (Manual) 3.0 L Seg Neutrophils # Lymphocytes # (Manual) 0.2 L INR APTT ABG pH POC ABG pCO2 POC ABG pO2 ABG Hemoglobin ABG Oxyhemoglobin ABG Potassium ABG Glucose Carboxyhemoglobin Sodium Potassium Chloride 96.2 L Carbon Dioxide 35 H BUN Creatinine 0.7 L Glucose 142 H POC Glucose 119 H Calcium Phosphorus Magnesium Lactate Dehydrogenase C-Reactive Protein Albumin Triglycerides Cholesterol 210 H LDL Cholesterol Direct 155 H Arterial Blood Glucose Arterial Blood Ionized Calcium Urine Creatinine Urine Total Protein 01/21/21 01/21/21 01/21/21 05:56 09:33 15:13 WBC RBC Hgb Hct 45.8 H MCV 98 H MCH MCHC RDW Lymph % (Auto) Dickenson % (Auto) Lymph # (Auto) Seg Neutrophils % Seg Neuts % (Manual) Lymphocytes % (Manual) Seg Neutrophils # Lymphocytes # (Manual) INR APTT ABG pH POC ABG pCO2 POC ABG pO2 ABG Hemoglobin ABG Oxyhemoglobin ABG Potassium ABG Glucose Carboxyhemoglobin Sodium Potassium Chloride Carbon Dioxide BUN Creatinine Glucose POC Glucose 147 H 153 H Calcium Phosphorus Magnesium Lactate Dehydrogenase C-Reactive Protein Albumin Triglycerides Cholesterol LDL Cholesterol Direct Arterial Blood Glucose Arterial Blood Ionized Calcium Urine Creatinine Urine Total Protein 01/21/21 01/21/21 01/22/21 15:13 16:33 01:53 WBC RBC Hgb Hct MCV MCH MCHC RDW Lymph % (Auto) Dickenson % (Auto) Lymph # (Auto) Seg Neutrophils % Seg Neuts % (Manual) Lymphocytes % (Manual) Seg Neutrophils # Lymphocytes # (Manual) INR 1.14 H APTT ABG pH POC ABG pCO2 POC ABG pO2 ABG Hemoglobin ABG Oxyhemoglobin ABG Potassium ABG Glucose Carboxyhemoglobin Sodium Potassium Chloride Carbon Dioxide BUN Creatinine Glucose POC Glucose 126 H 112 H Calcium Phosphorus Magnesium Lactate Dehydrogenase C-Reactive Protein Albumin Triglycerides Cholesterol LDL Cholesterol Direct Arterial Blood Glucose Arterial Blood Ionized Calcium Urine Creatinine Urine Total Protein 01/22/21 01/22/21 01/22/21 06:06 12:05 16:51 WBC RBC Hgb Hct MCV MCH MCHC RDW Lymph % (Auto) Dickenson % (Auto) Lymph # (Auto) Seg Neutrophils % Seg Neuts % (Manual) Lymphocytes % (Manual) Seg Neutrophils # Lymphocytes # (Manual) INR APTT ABG pH POC ABG pCO2 POC ABG pO2 ABG Hemoglobin ABG Oxyhemoglobin ABG Potassium ABG Glucose Carboxyhemoglobin Sodium Potassium Chloride Carbon Dioxide BUN Creatinine Glucose POC Glucose 107 H 121 H 164 H Calcium Phosphorus Magnesium Lactate Dehydrogenase C-Reactive Protein Albumin Triglycerides Cholesterol LDL Cholesterol Direct Arterial Blood Glucose Arterial Blood Ionized Calcium Urine Creatinine Urine Total Protein 01/22/21 01/23/21 01/23/21 23:10 05:39 06:08 WBC RBC Hgb Hct MCV 101 H MCH 33 H MCHC RDW Lymph % (Auto) Dickenson % (Auto) Lymph # (Auto) Seg Neutrophils % Seg Neuts % (Manual) Lymphocytes % (Manual) Seg Neutrophils # Lymphocytes # (Manual) INR APTT ABG pH POC ABG pCO2 POC ABG pO2 ABG Hemoglobin ABG Oxyhemoglobin ABG Potassium ABG Glucose Carboxyhemoglobin Sodium Potassium Chloride Carbon Dioxide BUN Creatinine Glucose POC Glucose 143 H 150 H Calcium Phosphorus Magnesium Lactate Dehydrogenase C-Reactive Protein Albumin Triglycerides Cholesterol LDL Cholesterol Direct Arterial Blood Glucose Arterial Blood Ionized Calcium Urine Creatinine Urine Total Protein 01/23/21 01/23/21 01/23/21 11:27 13:55 17:54 WBC RBC Hgb Hct MCV MCH MCHC RDW Lymph % (Auto) Dickenson % (Auto) Lymph # (Auto) Seg Neutrophils % Seg Neuts % (Manual) Lymphocytes % (Manual) Seg Neutrophils # Lymphocytes # (Manual) INR APTT ABG pH 7.249 L POC ABG pCO2 83.0 H POC ABG pO2 82.8 L ABG Hemoglobin ABG Oxyhemoglobin ABG Potassium 4.8 H ABG Glucose 236 H Carboxyhemoglobin Sodium Potassium Chloride Carbon Dioxide 33 H BUN 32 H Creatinine 1.6 H D Glucose 146 H POC Glucose 218 H Calcium 8.3 L Phosphorus Magnesium 3.00 H Lactate Dehydrogenase C-Reactive Protein Albumin 3.2 L Triglycerides Cholesterol LDL Cholesterol Direct Arterial Blood Glucose 236 H Arterial Blood Ionized Calcium 4.5 L Urine Creatinine Urine Total Protein 01/23/21 01/24/21 01/24/21 17:54 03:11 04:56 WBC RBC Hgb Hct MCV 100 H MCH MCHC RDW 15.4 H Lymph % (Auto) Dickenson % (Auto) Lymph # (Auto) Seg Neutrophils % Seg Neuts % (Manual) Lymphocytes % (Manual) Seg Neutrophils # Lymphocytes # (Manual) INR APTT ABG pH POC ABG pCO2 POC ABG pO2 ABG Hemoglobin ABG Oxyhemoglobin ABG Potassium ABG Glucose Carboxyhemoglobin Sodium Potassium Chloride Carbon Dioxide BUN Creatinine Glucose POC Glucose 131 H Calcium Phosphorus 2.00 L Magnesium Lactate Dehydrogenase C-Reactive Protein Albumin Triglycerides Cholesterol LDL Cholesterol Direct Arterial Blood Glucose Arterial Blood Ionized Calcium Urine Creatinine Urine Total Protein 01/24/21 01/24/21 01/24/21 04:56 05:00 05:47 WBC RBC Hgb Hct MCV MCH MCHC RDW Lymph % (Auto) Dickenson % (Auto) Lymph # (Auto) Seg Neutrophils % Seg Neuts % (Manual) Lymphocytes % (Manual) Seg Neutrophils # Lymphocytes # (Manual) INR APTT ABG pH 7.473 H POC ABG pCO2 POC ABG pO2 53.9 L ABG Hemoglobin ABG Oxyhemoglobin 90.0 L ABG Potassium ABG Glucose 127 H Carboxyhemoglobin Sodium 147 H D Potassium Chloride Carbon Dioxide 36 H BUN 33 H Creatinine 1.5 H Glucose 128 H POC Glucose 141 H Calcium 8.3 L Phosphorus Magnesium Lactate Dehydrogenase C-Reactive Protein Albumin Triglycerides Cholesterol LDL Cholesterol Direct Arterial Blood Glucose 127 H Arterial Blood Ionized Calcium 4.5 L Urine Creatinine Urine Total Protein 01/24/21 01/24/21 01/25/21 08:44 11:27 03:57 WBC RBC Hgb Hct MCV MCH MCHC RDW Lymph % (Auto) Dickenson % (Auto) Lymph # (Auto) Seg Neutrophils % Seg Neuts % (Manual) Lymphocytes % (Manual) Seg Neutrophils # Lymphocytes # (Manual) INR APTT ABG pH 7.515 H POC ABG pCO2 POC ABG pO2 70.5 L ABG Hemoglobin ABG Oxyhemoglobin ABG Potassium ABG Glucose 150 H Carboxyhemoglobin Sodium Potassium Chloride Carbon Dioxide BUN Creatinine Glucose POC Glucose 127 H Calcium Phosphorus 1.40 L D Magnesium 2.90 H Lactate Dehydrogenase C-Reactive Protein Albumin Triglycerides Cholesterol LDL Cholesterol Direct Arterial Blood Glucose 150 H Arterial Blood Ionized Calcium 4.4 L Urine Creatinine Urine Total Protein 01/25/21 01/25/21 01/25/21 04:35 04:35 05:07 WBC RBC Hgb Hct MCV 97 H MCH MCHC RDW 15.3 H Lymph % (Auto) Dickenson % (Auto) Lymph # (Auto) Seg Neutrophils % Seg Neuts % (Manual) Lymphocytes % (Manual) Seg Neutrophils # Lymphocytes # (Manual) INR APTT ABG pH POC ABG pCO2 POC ABG pO2 ABG Hemoglobin ABG Oxyhemoglobin ABG Potassium ABG Glucose Carboxyhemoglobin Sodium 147 H Potassium 3.5 L D Chloride Carbon Dioxide 37 H BUN 34 H Creatinine Glucose 127 H POC Glucose 117 H Calcium 8.1 L Phosphorus Magnesium Lactate Dehydrogenase C-Reactive Protein Albumin Triglycerides Cholesterol LDL Cholesterol Direct Arterial Blood Glucose Arterial Blood Ionized Calcium Urine Creatinine Urine Total Protein 01/25/21 01/25/21 01/25/21 11:15 12:39 17:37 WBC RBC Hgb Hct MCV MCH MCHC RDW Lymph % (Auto) Dickenson % (Auto) Lymph # (Auto) Seg Neutrophils % Seg Neuts % (Manual) Lymphocytes % (Manual) Seg Neutrophils # Lymphocytes # (Manual) INR APTT ABG pH POC ABG pCO2 POC ABG pO2 ABG Hemoglobin ABG Oxyhemoglobin ABG Potassium ABG Glucose Carboxyhemoglobin Sodium Potassium Chloride Carbon Dioxide BUN Creatinine Glucose POC Glucose 147 H 143 H 142 H Calcium Phosphorus Magnesium Lactate Dehydrogenase C-Reactive Protein Albumin Triglycerides Cholesterol LDL Cholesterol Direct Arterial Blood Glucose Arterial Blood Ionized Calcium Urine Creatinine Urine Total Protein 01/25/21 01/26/21 01/26/21 23:08 03:44 04:30 WBC RBC Hgb Hct MCV MCH MCHC RDW Lymph % (Auto) Dickenson % (Auto) Lymph # (Auto) Seg Neutrophils % Seg Neuts % (Manual) Lymphocytes % (Manual) Seg Neutrophils # Lymphocytes # (Manual) INR APTT ABG pH POC ABG pCO2 49.5 H POC ABG pO2 ABG Hemoglobin ABG Oxyhemoglobin ABG Potassium ABG Glucose 153 H Carboxyhemoglobin Sodium 149 H Potassium Chloride Carbon Dioxide 39 H BUN 35 H Creatinine Glucose 141 H POC Glucose 139 H Calcium 8.3 L Phosphorus Magnesium Lactate Dehydrogenase C-Reactive Protein Albumin Triglycerides Cholesterol LDL Cholesterol Direct Arterial Blood Glucose 153 H Arterial Blood Ionized Calcium 4.5 L Urine Creatinine Urine Total Protein 01/26/21 01/26/21 01/26/21 05:31 11:35 12:11 WBC RBC Hgb Hct MCV MCH MCHC RDW Lymph % (Auto) Dickenson % (Auto) Lymph # (Auto) Seg Neutrophils % Seg Neuts % (Manual) Lymphocytes % (Manual) Seg Neutrophils # Lymphocytes # (Manual) INR APTT ABG pH POC ABG pCO2 POC ABG pO2 ABG Hemoglobin ABG Oxyhemoglobin ABG Potassium ABG Glucose Carboxyhemoglobin Sodium Potassium Chloride Carbon Dioxide BUN Creatinine Glucose POC Glucose 143 H 145 H 161 H Calcium Phosphorus Magnesium Lactate Dehydrogenase C-Reactive Protein Albumin Triglycerides Cholesterol LDL Cholesterol Direct Arterial Blood Glucose Arterial Blood Ionized Calcium Urine Creatinine Urine Total Protein 01/26/21 01/26/21 01/26/21 12:12 18:01 23:22 WBC RBC Hgb Hct MCV MCH MCHC RDW Lymph % (Auto) Dickenson % (Auto) Lymph # (Auto) Seg Neutrophils % Seg Neuts % (Manual) Lymphocytes % (Manual) Seg Neutrophils # Lymphocytes # (Manual) INR APTT ABG pH POC ABG pCO2 POC ABG pO2 ABG Hemoglobin ABG Oxyhemoglobin ABG Potassium ABG Glucose Carboxyhemoglobin Sodium Potassium Chloride Carbon Dioxide BUN Creatinine Glucose POC Glucose 163 H 151 H 143 H Calcium Phosphorus Magnesium Lactate Dehydrogenase C-Reactive Protein Albumin Triglycerides Cholesterol LDL Cholesterol Direct Arterial Blood Glucose Arterial Blood Ionized Calcium Urine Creatinine Urine Total Protein 01/27/21 01/27/21 01/27/21 04:00 05:24 06:43 WBC RBC 3.45 L Hgb 11.1 L Hct 34.4 L MCV 100 H MCH MCHC RDW Lymph % (Auto) Dickenson % (Auto) Lymph # (Auto) Seg Neutrophils % Seg Neuts % (Manual) Lymphocytes % (Manual) Seg Neutrophils # Lymphocytes # (Manual) INR APTT ABG pH POC ABG pCO2 59.3 H POC ABG pO2 73.4 L ABG Hemoglobin ABG Oxyhemoglobin 93.2 L ABG Potassium ABG Glucose 178 H Carboxyhemoglobin Sodium Potassium Chloride Carbon Dioxide BUN Creatinine Glucose POC Glucose 152 H Calcium Phosphorus Magnesium Lactate Dehydrogenase C-Reactive Protein Albumin Triglycerides Cholesterol LDL Cholesterol Direct Arterial Blood Glucose 178 H Arterial Blood Ionized Calcium 4.4 L Urine Creatinine Urine Total Protein 01/27/21 01/27/21 01/27/21 06:43 11:35 16:39 WBC RBC Hgb Hct MCV MCH MCHC RDW Lymph % (Auto) Dickenson % (Auto) Lymph # (Auto) Seg Neutrophils % Seg Neuts % (Manual) Lymphocytes % (Manual) Seg Neutrophils # Lymphocytes # (Manual) INR APTT ABG pH POC ABG pCO2 POC ABG pO2 ABG Hemoglobin ABG Oxyhemoglobin ABG Potassium ABG Glucose Carboxyhemoglobin Sodium 148 H Potassium Chloride Carbon Dioxide 40 H BUN 40 H Creatinine Glucose 166 H POC Glucose 146 H 168 H Calcium Phosphorus Magnesium Lactate Dehydrogenase C-Reactive Protein Albumin Triglycerides Cholesterol LDL Cholesterol Direct Arterial Blood Glucose Arterial Blood Ionized Calcium Urine Creatinine Urine Total Protein 01/27/21 01/28/21 01/28/21 23:14 03:29 04:51 WBC RBC Hgb Hct MCV MCH MCHC RDW Lymph % (Auto) Dickenson % (Auto) Lymph # (Auto) Seg Neutrophils % Seg Neuts % (Manual) Lymphocytes % (Manual) Seg Neutrophils # Lymphocytes # (Manual) INR APTT ABG pH POC ABG pCO2 57.3 H POC ABG pO2 67.1 L ABG Hemoglobin 11.8 L ABG Oxyhemoglobin 91.5 L ABG Potassium ABG Glucose 172 H Carboxyhemoglobin Sodium Potassium Chloride Carbon Dioxide BUN Creatinine Glucose POC Glucose 140 H 166 H Calcium Phosphorus Magnesium Lactate Dehydrogenase C-Reactive Protein Albumin Triglycerides Cholesterol LDL Cholesterol Direct Arterial Blood Glucose 172 H Arterial Blood Ionized Calcium 4.4 L Urine Creatinine Urine Total Protein 01/28/21 01/28/21 01/28/21 05:51 05:51 10:01 WBC RBC 3.39 L Hgb 11.1 L Hct 33.9 L MCV 100 H MCH 33 H MCHC RDW Lymph % (Auto) Dickenson % (Auto) Lymph # (Auto) Seg Neutrophils % Seg Neuts % (Manual) Lymphocytes % (Manual) Seg Neutrophils # Lymphocytes # (Manual) INR APTT 42.8 H ABG pH POC ABG pCO2 POC ABG pO2 ABG Hemoglobin ABG Oxyhemoglobin ABG Potassium ABG Glucose Carboxyhemoglobin Sodium Potassium Chloride Carbon Dioxide 36 H BUN 46 H Creatinine 1.4 H Glucose 157 H POC Glucose Calcium Phosphorus Magnesium Lactate Dehydrogenase C-Reactive Protein Albumin Triglycerides Cholesterol LDL Cholesterol Direct Arterial Blood Glucose Arterial Blood Ionized Calcium Urine Creatinine Urine Total Protein 01/28/21 01/28/21 01/28/21 10:01 11:14 17:36 WBC RBC Hgb Hct MCV MCH MCHC RDW Lymph % (Auto) Dickenson % (Auto) Lymph # (Auto) Seg Neutrophils % Seg Neuts % (Manual) Lymphocytes % (Manual) Seg Neutrophils # Lymphocytes # (Manual) INR APTT ABG pH POC ABG pCO2 POC ABG pO2 ABG Hemoglobin ABG Oxyhemoglobin ABG Potassium ABG Glucose Carboxyhemoglobin Sodium Potassium Chloride Carbon Dioxide BUN Creatinine 1.4 H Glucose POC Glucose 157 H 127 H Calcium Phosphorus Magnesium Lactate Dehydrogenase C-Reactive Protein Albumin Triglycerides Cholesterol LDL Cholesterol Direct Arterial Blood Glucose Arterial Blood Ionized Calcium Urine Creatinine Urine Total Protein 01/28/21 01/29/21 01/29/21 23:18 02:52 04:53 WBC RBC Hgb Hct MCV MCH MCHC RDW Lymph % (Auto) Dickenson % (Auto) Lymph # (Auto) Seg Neutrophils % Seg Neuts % (Manual) Lymphocytes % (Manual) Seg Neutrophils # Lymphocytes # (Manual) INR APTT ABG pH POC ABG pCO2 72.6 H POC ABG pO2 58.0 L ABG Hemoglobin 11.6 L ABG Oxyhemoglobin 86.5 L ABG Potassium ABG Glucose 179 H Carboxyhemoglobin Sodium Potassium Chloride Carbon Dioxide BUN Creatinine Glucose POC Glucose 146 H 146 H Calcium Phosphorus Magnesium Lactate Dehydrogenase C-Reactive Protein Albumin Triglycerides Cholesterol LDL Cholesterol Direct Arterial Blood Glucose 179 H Arterial Blood Ionized Calcium 4.4 L Urine Creatinine Urine Total Protein 01/29/21 01/29/21 01/29/21 07:03 07:03 11:14 WBC RBC 3.29 L Hgb 10.6 L Hct 32.4 L MCV 99 H MCH MCHC RDW Lymph % (Auto) Dickenson % (Auto) Lymph # (Auto) Seg Neutrophils % Seg Neuts % (Manual) Lymphocytes % (Manual) Seg Neutrophils # Lymphocytes # (Manual) INR APTT ABG pH POC ABG pCO2 POC ABG pO2 ABG Hemoglobin ABG Oxyhemoglobin ABG Potassium ABG Glucose Carboxyhemoglobin Sodium Potassium Chloride 97.6 L Carbon Dioxide 36 H BUN 63 H Creatinine 1.8 H Glucose 180 H POC Glucose 162 H Calcium Phosphorus Magnesium Lactate Dehydrogenase C-Reactive Protein Albumin Triglycerides 157 H Cholesterol LDL Cholesterol Direct Arterial Blood Glucose Arterial Blood Ionized Calcium Urine Creatinine Urine Total Protein 01/29/21 01/29/21 01/29/21 14:13 14:37 17:54 WBC RBC Hgb 10.5 L Hct 32.7 L MCV MCH MCHC RDW Lymph % (Auto) Dickenson % (Auto) Lymph # (Auto) Seg Neutrophils % Seg Neuts % (Manual) Lymphocytes % (Manual) Seg Neutrophils # Lymphocytes # (Manual) INR APTT ABG pH POC ABG pCO2 66.4 H POC ABG pO2 ABG Hemoglobin 11.3 L ABG Oxyhemoglobin ABG Potassium ABG Glucose 174 H Carboxyhemoglobin 0.3 L Sodium Potassium Chloride Carbon Dioxide BUN Creatinine Glucose POC Glucose 148 H Calcium Phosphorus Magnesium Lactate Dehydrogenase C-Reactive Protein Albumin Triglycerides Cholesterol LDL Cholesterol Direct Arterial Blood Glucose 174 H Arterial Blood Ionized Calcium 4.4 L Urine Creatinine Urine Total Protein 01/29/21 01/30/21 01/30/21 22:48 00:24 03:14 WBC RBC Hgb 10.2 L Hct 31.1 L MCV MCH MCHC RDW Lymph % (Auto) Dickenson % (Auto) Lymph # (Auto) Seg Neutrophils % Seg Neuts % (Manual) Lymphocytes % (Manual) Seg Neutrophils # Lymphocytes # (Manual) INR APTT ABG pH POC ABG pCO2 56.1 H POC ABG pO2 ABG Hemoglobin 11.0 L ABG Oxyhemoglobin ABG Potassium ABG Glucose 120 H Carboxyhemoglobin 0.3 L Sodium Potassium Chloride Carbon Dioxide BUN Creatinine Glucose POC Glucose 133 H Calcium Phosphorus Magnesium Lactate Dehydrogenase C-Reactive Protein Albumin Triglycerides Cholesterol LDL Cholesterol Direct Arterial Blood Glucose 120 H Arterial Blood Ionized Calcium 4.5 L Urine Creatinine Urine Total Protein 01/30/21 01/30/21 01/30/21 05:32 07:20 07:20 WBC 11.6 H RBC 3.27 L Hgb 10.1 L Hct 32.1 L MCV 98 H MCH MCHC 31 L RDW Lymph % (Auto) 3.9 L Dickenson % (Auto) Lymph # (Auto) 0.5 L Seg Neutrophils % 88.8 H Seg Neuts % (Manual) Lymphocytes % (Manual) Seg Neutrophils # 10.3 H Lymphocytes # (Manual) INR APTT ABG pH POC ABG pCO2 POC ABG pO2 ABG Hemoglobin ABG Oxyhemoglobin ABG Potassium ABG Glucose Carboxyhemoglobin Sodium 147 H Potassium Chloride Carbon Dioxide 36 H BUN 89 H Creatinine 2.8 H D Glucose 126 H POC Glucose 115 H Calcium Phosphorus Magnesium Lactate Dehydrogenase C-Reactive Protein Albumin Triglycerides Cholesterol LDL Cholesterol Direct Arterial Blood Glucose Arterial Blood Ionized Calcium Urine Creatinine Urine Total Protein 01/30/21 01/30/21 01/30/21 11:33 15:35 15:38 WBC RBC Hgb 10.2 L Hct 31.7 L MCV MCH MCHC RDW Lymph % (Auto) Dickenson % (Auto) Lymph # (Auto) Seg Neutrophils % Seg Neuts % (Manual) Lymphocytes % (Manual) Seg Neutrophils # Lymphocytes # (Manual) INR APTT ABG pH POC ABG pCO2 56.7 H POC ABG pO2 67.7 L ABG Hemoglobin 10.7 L ABG Oxyhemoglobin 91.0 L ABG Potassium 4.6 H ABG Glucose 152 H Carboxyhemoglobin Sodium Potassium Chloride Carbon Dioxide BUN Creatinine Glucose POC Glucose 143 H Calcium Phosphorus Magnesium Lactate Dehydrogenase C-Reactive Protein Albumin Triglycerides Cholesterol LDL Cholesterol Direct Arterial Blood Glucose 152 H Arterial Blood Ionized Calcium 4.4 L Urine Creatinine Urine Total Protein 01/30/21 01/30/21 01/30/21 16:26 23:10 23:32 WBC RBC Hgb 9.9 L Hct 29.5 L MCV MCH MCHC RDW Lymph % (Auto) Dickenson % (Auto) Lymph # (Auto) Seg Neutrophils % Seg Neuts % (Manual) Lymphocytes % (Manual) Seg Neutrophils # Lymphocytes # (Manual) INR APTT ABG pH POC ABG pCO2 POC ABG pO2 ABG Hemoglobin ABG Oxyhemoglobin ABG Potassium ABG Glucose Carboxyhemoglobin Sodium Potassium Chloride Carbon Dioxide BUN Creatinine Glucose POC Glucose 146 H 143 H Calcium Phosphorus Magnesium Lactate Dehydrogenase C-Reactive Protein Albumin Triglycerides Cholesterol LDL Cholesterol Direct Arterial Blood Glucose Arterial Blood Ionized Calcium Urine Creatinine Urine Total Protein 01/30/21 01/31/21 01/31/21 Unknown 05:00 05:45 WBC RBC Hgb Hct MCV MCH MCHC RDW Lymph % (Auto) Dickenson % (Auto) Lymph # (Auto) Seg Neutrophils % Seg Neuts % (Manual) Lymphocytes % (Manual) Seg Neutrophils # Lymphocytes # (Manual) INR APTT ABG pH POC ABG pCO2 55.0 H POC ABG pO2 73.2 L ABG Hemoglobin 10.6 L ABG Oxyhemoglobin 92.6 L ABG Potassium 4.7 H ABG Glucose 155 H Carboxyhemoglobin Sodium 146 H Potassium Chloride Carbon Dioxide 36 H BUN 118 H Creatinine 5.2 H D Glucose 146 H POC Glucose Calcium 8.1 L Phosphorus Magnesium Lactate Dehydrogenase C-Reactive Protein Albumin Triglycerides Cholesterol LDL Cholesterol Direct Arterial Blood Glucose 155 H Arterial Blood Ionized Calcium 4.2 L Urine Creatinine 132.3 H Urine Total Protein 504 H 01/31/21 05:57 WBC RBC Hgb Hct MCV MCH MCHC RDW Lymph % (Auto) [place] % (Auto) Lymph # (Auto) Seg Neutrophils % Seg Neuts % (Manual) Lymphocytes % (Manual) Seg Neutrophils # Lymphocytes # (Manual) INR APTT ABG pH POC ABG pCO2 POC ABG pO2 ABG Hemoglobin ABG Oxyhemoglobin ABG Potassium ABG Glucose Carboxyhemoglobin Sodium Potassium Chloride Carbon Dioxide BUN Creatinine Glucose POC Glucose 138 H Calcium Phosphorus Magnesium Lactate Dehydrogenase C-Reactive Protein Albumin Triglycerides Cholesterol LDL Cholesterol Direct Arterial Blood Glucose Arterial Blood Ionized Calcium Urine Creatinine Urine Total Protein Allied health notes reviewed: nursing
[2021-01-31] MEDS: DOCUSATE SODIUM 100 MG/10 ML ORAL LIQD FEEDTUBE SCH ×2 (09:46→21:00)
--- NOTE | 2021-01-31 09:52 | Progress Note ---
Assessment and Plan 1. Acute kidney injury: Vasomotor BERKLEY in the setting of shock. Low FeNa. Renal US negative for hydro. Suspect ATN. Continue IV fluids. Monitor renal function. Creatinine level increasing. UOP is decreasing. Renal prognosis is guarded. Avoid nephrotoxic agents. Meds dosage based on GFR. Monitor for [employer]PING [employer] needs. I tried to call patient's multiple times and unable to reach. Will try to call her in AM. Most likely patient need hemodialysis tomorrow. 2. FEN: Hypernatremia, monitor. Monitor lytes and volume status. 3. Acute hypoxemic respiratory failure: Currently intubated on vent. Followed by Pulmonary. 4. Shock: Likely septic. Right middle and lower lobe pneumonia. Off pressors, monitor. On Meropenem and Vanco. Followed by ID. 5. Acute metabolic encephalopathy: CT head negative for acute process. 6. A.fib. 7. Acute GI bleed: Followed by GI. 8. Anemia, not POA: Monitor. 9. DM type 2. 10. Seizure. Subjective: Patient was seen and examined at the bedside. Examination: General appearance: well-developed, appears stated age, intubated on vent HEENT: atraumatic, pupils appears equal Neck: trachea midline Respiratory: Coarse breath sounds heard Heart: S1S2, no murmur Abdomen: soft, obese, bowel sounds heard, NT Integumentary: no obvious rash Neurologic: sedated Ext: no edema noted : condom catheter Subjective Date of service: 01/31/21 Principal diagnosis: CVA Objective - Vital Signs Vital signs: Vital Signs - 12hr 01/30/21 01/30/21 01/30/21 22:01 22:15 23:00 Temperature Pulse Rate 96 H 101 H 94 H Pulse Rate [ From Monitor] Respiratory 18 17 18 Rate Blood Pressure 116/75 116/75 108/66 O2 Sat by Pulse 97 96 96 Oximetry 01/31/21 01/31/21 01/31/21 00:00 00:01 00:16 Temperature 102.7 F H Pulse Rate 101 H 115 H 101 H Pulse Rate [ 115 H From Monitor] Respiratory 16 16 Rate Blood Pressure 128/80 128/80 O2 Sat by Pulse 97 97 97 Oximetry 01/31/21 01/31/21 01/31/21 01:00 02:00 03:00 Temperature Pulse Rate 109 H 103 H 101 H Pulse Rate [ From Monitor] Respiratory 19 17 16 Rate Blood Pressure 108/66 98/74 108/75 O2 Sat by Pulse 95 95 95 Oximetry 01/31/21 01/31/21 01/31/21 04:00 05:00 05:40 Temperature Pulse Rate 110 H 96 H Pulse Rate [ 110 H From Monitor] Respiratory 12 16 16 Rate Blood Pressure 108/81 105/67 O2 Sat by Pulse 87 94 Oximetry 01/31/21 01/31/21 01/31/21 06:00 07:00 08:00 Temperature 102.6 F H 103.1 F H Pulse Rate 96 H 80 Pulse Rate [ 93 H From Monitor] Respiratory 17 16 Rate Blood Pressure 107/66 114/67 O2 Sat by Pulse 98 93 Oximetry - Lab 01/30/21 23:10 01/31/21 05:45 Most recent lab results ABG pH 7.383 (7.320-7.450) 01/31/21 05:00 ABG O2 Saturation 93.4 (0-100) 01/31/21 05:00 Calcium 8.1 mg/dL (8.4-10.2) L 01/31/21 05:45 Phosphorus 2.50 mg/dL (2.5-4.5) D 01/25/21 09:40 Magnesium 2.90 mg/dL (1.7-2.3) H 01/24/21 08:44 Urine Creatinine 132.3 mg/dL (0.1-20.0) H 01/30/21 Unknown Urine Sodium 18 mmol/L 01/30/21 Unknown Urine Total Protein 504 mg/dL (5-11.8) H 01/30/21 Unknown Medications & Allergies - Medications Allergies/Adverse Reactions: Allergies No Known Allergies Allergy (Unverified 01/20/21 19:59) Home Medications: Home Medications Medication Instructions Recorded Confirmed Last Taken Type Amlodipine Besylate [Norvasc] 10 mg PO DAILY 01/20/21 01/20/21 01/19/21 History Atorvastatin [Lipitor Tab] 80 mg PO DAILY 01/20/21 01/20/21 01/19/21 History Banophen Anti-Itch 25 mg PO DAILY 01/20/21 01/20/21 01/19/21 History Metformin HCl [metFORMIN ER 500 mg PO DAILY 01/20/21 01/20/21 01/19/21 History Osmotic] Metoprolol [Lopressor] 25 mg PO DAILY 01/20/21 01/20/21 01/19/21 History Active Medications: Generic Name Dose Route Start Last Admin Trade Name Freq PRN Reason Stop Dose Admin Acetaminophen 650 mg 01/20/21 23:38 01/27/21 04:21 Acetaminophen 325 Mg Tab PO 650 mg Q4H PRN Administration Pain MILD(1-3)/Fever >100.5/[place] Acetaminophen 650 mg 01/23/21 08:23 01/31/21 04:40 Acetaminophen 650 Mg Rect Supp [place] 650 mg Q4H PRN Administration Pain, Mild (1-3) IF NPO Albuterol 2.5 mg 01/20/21 23:38 Albuterol 2.5 Mg/3 Ml Nebu IH Q4HRT PRN Shortness Of Breath Lipase/Protease/Amylase 1 each 01/24/21 08:04 Lipase 10,500/Protease 25,000/Amylase 43,750 (Units) Dr Cap FEEDTUBE PRN PRN For Clogged Feeding Tube Atorvastatin Calcium 80 mg 01/21/21 10:00 01/31/21 09:46 Atorvastatin 40 Mg Tab PO 80 mg DAILY NGUYEN Administration Dextrose 0 ml 01/20/21 23:38 Dextrose 50% In Water (25gm) 50 Ml Syringe IV Q30MIN PRN Hypoglycemia Protocol Docusate Sodium 100 mg 01/30/21 10:00 01/31/21 09:46 Docusate Sodium 100 Mg/10 Ml Oral Liqd FEEDTUBE 100 mg BID NGUYEN Administration Fentanyl 50 mcg 01/23/21 16:00 01/29/21 10:47 Fentanyl 100 Mcg/2 Ml Inj IV 50 mcg Q2H PRN Administration Pain , Severe (7-10) Hydralazine HCl 10 mg 01/20/21 23:46 Hydralazine 20 Mg/1 Ml Inj IV Q6H PRN htn Norepinephrine 4 mg in 250 mls @ 7.5 mls/hr 01/23/21 13:00 01/25/21 06:25 Levophed Drip 4 Mg/Ns 250 Ml IV 0 mcg/min TITR NGUYEN 0 mls/hr Titration Protocol 2 MCG/MIN Propofol 1,000 mg in 100 mls @ 3.468 mls/hr 01/24/21 11:00 01/29/21 09:15 Diprivan 10 Mg/Ml IV 0 mcg/kg/min TITR NGUYEN 0 mls/hr Titration Protocol 5 MCG/KG/MIN Pantoprazole Sodium 80 mg/ 100 mls @ 10 mls/hr 01/29/21 14:00 01/31/21 06:58 Sodium Chloride IV 02/01/21 13:59 8 mg/hr DIRECT NGUYEN 10 mls/hr Administration 8 MG/HR Cefepime HCl 2 gm in 100 mls @ 200 mls/hr 01/30/21 22:00 01/30/21 21:06 Cefepime/Ns 2 Gm/100 Ml IV 200 mls/hr Q24H NGUYEN Administration Protocol Sodium Chloride 1,000 mls @ 100 mls/hr 01/30/21 11:00 01/30/21 22:00 Nacl 0.45% 1000 Ml IV 100 mls/hr DIRECT NGUYEN Administration Insulin Human Lispro 0 unit 01/21/21 00:00 01/31/21 06:15 Insulin Lispro 100 Unit/Ml SUB-Q Not Given Q6HR NGUYEN Protocol Lorazepam 2 mg 01/23/21 12:22 01/27/21 22:39 Lorazepam 2 Mg/Ml Vial IV 2 mg Q4H PRN Administration Agitation Midazolam HCl 1 mg 01/31/21 10:00 Midazolam 2 Mg/2 Ml Inj IV 01/31/21 10:01 PREOP ONE Ondansetron HCl 4 mg 01/20/21 23:38 Ondansetron 4 Mg/2 Ml Inj IV Q8H PRN Nausea And Vomiting Oxymetazoline HCl 2 spray 01/29/21 13:00 01/31/21 00:32 Oxymetazoline 0.05% Nasal [place] NS 02/01/21 01:01 2 spray Q12H NGUYEN Administration Senna 8.6 mg 01/27/21 09:59 01/28/21 09:34 Sennosides 8.6 Mg Tab PO 8.6 mg Q12H PRN Administration Laxative Effect Simple Syrup 15 ml 01/24/21 08:04 Simple Syrup 15 Ml FEEDTUBE PRN PRN Hypoglycemia Simple Syrup 30 ml 01/24/21 08:04 Simple Syrup 15 Ml FEEDTUBE PRN PRN Hypoglycemia Sodium Bicarbonate 325 mg 01/24/21 08:04 Sodium Bicarbonate 325 Mg Tab FEEDTUBE PRN PRN For Clogged Feeding Tube Sodium Chloride 10 ml 01/21/21 10:00 01/31/21 09:47 Sodium Chloride 0.9% 10 Ml Flush Syringe IV 10 ml BID NGUYEN Administration Sodium Chloride 10 ml 01/20/21 23:38 Sodium Chloride 0.9% 10 Ml Flush Syringe IV PRN PRN LINE FLUSH
[2021-01-31] MEDS ORDERED: MIDAZOLAM 2 MG/2 ML INJ IV ONE (10:00)
[2021-01-31] MEDS: SODIUM CHLORIDE 0.45% 1000 ML 1,000 ML IV SCH (10:16)
[2021-01-31] MEDS: fentaNYL 100 MCG/2 ML INJ IV PRN (10:16)
--- NOTE | 2021-01-31 10:33 | Progress Note ---
Assessment and Plan Cultures: Blood culture 01/20/2021 no growth so far Urine culture 01/20/2021 no growth so far Sputum culture 01/22/2021 Berta A/P: 65-year-old man past medical history diabetes, hypertension, A. fib presented to the hospital with weakness, now intubated, sedated with possible CVA. #Acute hypoxic respiratory failure: on the vent. Procalcitonin 0.52 in the setting of BERKLEY #Sirs/sepsis: central vs infectious etiology. Infectious workup negative so far. Given probably acute CVA with possible evolution may be central etiology #CVA #BERKLEY: worse than on admission. Recs: -Fevers are very high. Will escalate to vancomycin/meropenem for now, though if no response will have to assume non-infectious etiology. Thank you for the consult, we will continue to follow. Maria Del Carmen Parker MD [facility] ([facility]) O: [phone] F: [phone] Subjective Date of service: 01/31/21 Principal diagnosis: CVA Interval history: Remains persistently febrile to 103.1. Remains on the vent. Objective - Exam Narrative Exam: Physical Exam: Constitutional: intubated Head, Ears, Nose: Normocephalic, atraumatic. Eyes: Conjunctivae/corneas clear. No icterus. No ptosis. Neck: ETT Oral: ETT Cardiovascular: S1, S2 normal. Respiratory: Good air entry, clear to auscultation bilaterally GI: Soft, non-tender; bowel sounds normal. No peritoneal signs. Musculoskeletal: No pedal edema, no cyanosis. Skin: No rash or abscess Hem/Lymphatic: No palpable cervical or supraclavicular nodes. No lymphangitis Psych: no agitation. Neurological: no agitation - Constitutional Vitals: Vital Signs Temp Pulse Resp BP Pulse Ox 103.1 F H 93 H 14 114/67 93 01/31/21 07:00 01/31/21 08:00 01/31/21 10:16 01/31/21 08:00 01/31/21 08:00 Temperature -Last 24 Hours Temperature 103.1 F Temperature 103.1 F Temperature 102.6 F Temperature 102.7 F Temperature 103.4 F Temperature 103.1 F Temperature 103.1 F - Labs CBC & Chem 7: 01/30/21 23:10 01/31/21 05:45 Labs: Abnormal lab results 01/30/21 01/30/21 01/30/21 Range/Units 05:32 11:33 15:35 Hgb (11.8-15.2) gm/dl Hct (35.5-45.6) % POC ABG pCO2 56.7 H (32.0-48.0) mmHg POC ABG pO2 67.7 L (83-108) mmHg ABG Hemoglobin 10.7 L (12.0-17.5) ABG Oxyhemoglobin 91.0 L (94-98) ABG Potassium 4.6 H (3.40-4.50) mmol/L ABG Glucose 152 H (65-95) mg/dL Sodium (137-145) mmol/L Carbon Dioxide (22-30) mmol/L BUN (9-20) mg/dL Creatinine (0.8-1.3) mg/dL Glucose (75-100) mg/dL POC Glucose 115 H 143 H (70-105) mg/dL Calcium (8.4-10.2) mg/dL Arterial Blood Glucose 152 H (65-95) mg/dL Arterial Blood Ionized Calcium 4.4 L (4.6-5.3) mg/dL Urine Creatinine (0.1-20.0) mg/dL Urine Total Protein (5-11.8) mg/dL 01/30/21 01/30/21 01/30/21 Range/Units 15:38 16:26 23:10 Hgb 10.2 L 9.9 L (11.8-15.2) gm/dl Hct 31.7 L 29.5 L (35.5-45.6) % POC ABG pCO2 (32.0-48.0) mmHg POC ABG pO2 (83-108) mmHg ABG Hemoglobin (12.0-17.5) ABG Oxyhemoglobin (94-98) ABG Potassium (3.40-4.50) mmol/L ABG Glucose (65-95) mg/dL Sodium (137-145) mmol/L Carbon Dioxide (22-30) mmol/L BUN (9-20) mg/dL Creatinine (0.8-1.3) mg/dL Glucose (75-100) mg/dL POC Glucose 146 H (70-105) mg/dL Calcium (8.4-10.2) mg/dL Arterial Blood Glucose (65-95) mg/dL Arterial Blood Ionized Calcium (4.6-5.3) mg/dL Urine Creatinine (0.1-20.0) mg/dL Urine Total Protein (5-11.8) mg/dL 01/30/21 01/30/21 01/31/21 Range/Units 23:32 Unknown 05:00 Hgb (11.8-15.2) gm/dl Hct (35.5-45.6) % POC ABG pCO2 55.0 H (32.0-48.0) mmHg POC ABG pO2 73.2 L (83-108) mmHg ABG Hemoglobin 10.6 L (12.0-17.5) ABG Oxyhemoglobin 92.6 L (94-98) ABG Potassium 4.7 H (3.40-4.50) mmol/L ABG Glucose 155 H (65-95) mg/dL Sodium (137-145) mmol/L Carbon Dioxide (22-30) mmol/L BUN (9-20) mg/dL Creatinine (0.8-1.3) mg/dL Glucose (75-100) mg/dL POC Glucose 143 H (70-105) mg/dL Calcium (8.4-10.2) mg/dL Arterial Blood Glucose 155 H (65-95) mg/dL Arterial Blood Ionized Calcium 4.2 L (4.6-5.3) mg/dL Urine Creatinine 132.3 H (0.1-20.0) mg/dL Urine Total Protein 504 H (5-11.8) mg/dL 01/31/21 01/31/21 Range/Units 05:45 05:57 Hgb (11.8-15.2) gm/dl Hct (35.5-45.6) % POC ABG pCO2 (32.0-48.0) mmHg POC ABG pO2 (83-108) mmHg ABG Hemoglobin (12.0-17.5) ABG Oxyhemoglobin (94-98) ABG Potassium (3.40-4.50) mmol/L ABG Glucose (65-95) mg/dL Sodium 146 H (137-145) mmol/L Carbon Dioxide 36 H (22-30) mmol/L BUN 118 H (9-20) mg/dL Creatinine 5.2 H D (0.8-1.3) mg/dL Glucose 146 H (75-100) mg/dL POC Glucose 138 H (70-105) mg/dL Calcium 8.1 L (8.4-10.2) mg/dL Arterial Blood Glucose (65-95) mg/dL Arterial Blood Ionized Calcium (4.6-5.3) mg/dL Urine Creatinine (0.1-20.0) mg/dL Urine Total Protein (5-11.8) mg/dL
--- NOTE | 2021-01-31 10:51 | Procedure Note ---
Date of procedure: 01/31/21 Pre-op diagnosis: Hemodialysis Post-op diagnosis: same Procedure: After speaking on the phone with the and obtaining informed consent, using ultrasound guidance and seldinger techinque, a right femoral dialysis catheter was placed without immediate complication or difficulty. Anesthesia: local Surgeon: VISHAL ARROYO Estimated blood loss: none Pathology: none Condition: critical Disposition: ICU
[2021-01-31] MEDS ORDERED: VANCOMYCIN PHARMACY TO DOSE IV SCH (11:00)
[2021-01-31] MEDS ORDERED: MEROPENEM/NS 500 MG/50 ML 500 MG/50 ML BAG IV SCH (11:00)
[2021-01-31] MEDS ORDERED: MEROPENEM/NS 1 GRAM/100 ML 1 GRAM/100 ML BAG IV ONE (12:00)
[2021-01-31] MEDS ORDERED: VANCOMYCIN 2,000 MG in SODIUM CHLORIDE 0.9% 500 ML 500 ML IV ONE (12:00)
--- NOTE | 2021-01-31 14:54 | Progress Note ---
Assessment and Plan Echo reviewed - mild LVH, EF 50-55%, mod pulm HTN w/RVSP 53 mmHg, mod RA enlargement, mild RV enlargement with TR, negative Bubble study. Volume optimization via HD per Primary/Nephro. Remains in AF/Flutter on tele, rate is well controlled. F/u CBC in AM. Resume Eliquis upon resolution of bleeding. Pt seen in conjunction with Dr. Brooke Arndt, who agrees with the assessment and plan of care. - Patient Problems (1) Acute CVA (cerebrovascular accident) Current Visit: Yes Status: Suspected (2) Acute respiratory failure Current Visit: Yes Status: Acute (3) Sepsis Current Visit: Yes Status: Acute (4) Pneumonia Current Visit: Yes Status: Acute (5) BERKLEY (acute kidney injury) Current Visit: Yes Status: Acute (6) Anemia Current Visit: Yes Status: Acute (7) Epistaxis Current Visit: Yes Status: Acute (8) GI bleed Current Visit: Yes Status: Acute (9) Atrial fibrillation Current Visit: Yes Status: Acute Qualifiers: Atrial fibrillation type: persistent (not longstanding) Qualified Code(s): I48.19 - Other persistent atrial fibrillation; I48.1 - Persistent atrial fibrillation (10) Pulmonary HTN Current Visit: Yes Status: Chronic (11) HTN (hypertension) Current Visit: No Status: Chronic Qualifiers: Hypertension type: essential hypertension Qualified Code(s): I10 - Essential (primary) hypertension (12) DM2 (diabetes mellitus, type 2) Current Visit: Yes Status: Chronic (13) Seizure Current Visit: Yes Status: Chronic Subjective Date of service: 01/31/21 Principal diagnosis: CVA Interval history: Remains intubated. BP borderline but not requiring pressors. Tele reviewed - AF 70-90s (intermittently up to the low 100s). Objective Last Vital Signs Temp 99.8 F H 01/31/21 11:43 Pulse 91 H 01/31/21 12:15 Resp 16 01/31/21 12:15 BP 103/64 01/31/21 12:15 Pulse Ox 93 01/31/21 12:15 - Physical Examination General: Other (intubated) HEENT: Positive: Normocephaly Neck: Negative: JVD/HJR Cardiac: Positive: irregularly irregular, S1/S2 Lungs: Positive: Other (coarse anteriorly) Neuro: Positive: Other (intubated) Abdomen: Positive: Soft Skin: Negative: Rash Musculoskeletal: No Fluid Collection Extremities: Present: lower extr. pulses. Absent: edema - Labs and Meds CBC 01/30/21 01/30/21 Range/Units 15:38 23:10 Hgb 10.2 L 9.9 L (11.8-15.2) gm/dl Hct 31.7 L 29.5 L (35.5-45.6) % Comprehensive Metabolic Panel 01/31/21 Range/Units 05:45 Sodium 146 H (137-145) mmol/L Potassium 5.0 (3.6-5.0) mmol/L Chloride 101.9 (98-107) mmol/L Carbon Dioxide 36 H (22-30) mmol/L BUN 118 H (9-20) mg/dL Creatinine 5.2 H D (0.8-1.3) mg/dL Glucose 146 H (75-100) mg/dL Calcium 8.1 L (8.4-10.2) mg/dL - Imaging and Cardiology EKG: report reviewed, image reviewed Echo: report reviewed (01/23/2021 - mild LVH, EF 50-55%, mod pulm HTN w/RVSP 53 mmHg, mod RA enlargement, mild RV enlargement with TR) - Telemetry EKG Rhythm: Atrial Fibrillation - EKG Supraventricular dysrhythmia: atrial fibrillation Repolarization changes or abnormalities: nonspecific abnormality, ST segment, and/or T wave - Allied health notes Allied health notes reviewed: nursing
--- NOTE | 2021-01-31 16:50 | Progress Note ---
Assessment and Plan This is a 65-year-old male with atrial fibrillation on Eliquis, hypertension, and diabetes who is admitted with suspected pneumonia, acute hypoxic respiratory failure, COVID-19 PUI, CVA and with hypertensive urgency Acute hypoxic respiratory failure Remote Right MCA CVA Shock/hypotension Seizure disorder Right middle and lower lobe pneumonia Acute metabolic encephalopathy Hypertensive urgency Type 2 diabetes Atrial fibrillation Hypernatremia Hyperchloremia Acute GI bleed -[facility], cardiology, neurology consulted, appreciate recommendations -01/20 CT head shows a well-defined area of decreased attenuation in the right parietal lobe, limited imagery secondary to artifact. MRI brain recommended for further work-up -01/20 CT chest shows possible mild inflammatory process in the right middle and right lower lobe -01/20 MRI brain pending -01/23 CT head shows no acute focal parenchymal lesion in the brain, no change to right middle frontal gyrus chronic ischemia -01/23/21 2d echo showed EF 50-55% -01/23 CXR shows right infrahilar opacity consistent with large areas of atelectasis of the right middle or lower lobe. 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 -01/26 CT head shows remote right MCA - EEG pending, MRI brain pending -Intubated 01/23 -VAP bundle, wean mechanical ventilation as tolerated -s/p IV antibiotics -Aspirin, Lipitor -Sedated with propofol -s/p vasopressor support with Levophed -Hold antihypertensive regimen and setting of needing vasopressor support, resume as tolerated -Neurochecks per protocol -Accu-Cheks every 6, SSI -Seizure precautions -Tube feedings -Trend BMP, CBC DVT/GI prophylaxis: Heparin subcu, PPIm SCDs to BLE while in bed Disposition: ICU The high probability of a clinically significant, sudden or life threatening deterioration of the [Respiratory, neuro, metabolic, infectious,] system(s) required my full and direct attention, intervention and personal management. The aggregate critical care time was [34] minutes. This time is in addition to time spent performing reported procedures but includes the following: [x] Data Review and interpretation [x] Patient assessment and monitoring of vital signs [x] Documentation [x] Medication orders and management Brief history: This is a 65-year-old male with atrial fibrillation on Eliquis, hypertension, and diabetes who presents to the emergency on 01/20 with complaints of progressive generalized weakness, gait unsteadiness, cough and fever. Upon EMS arrival patient was febrile with a temperature of 102 and hypoxic with SPO2 in the 70s on room air. Work-up in the emergency department included a CT scan of his chest which showed possible mild inflammatory process in his right middle and lower lobe, CT head was admitted secondary to artifact but noted a low- density area in the right parietal lobe. Patient was admitted to the hospitalist service with suspected pneumonia, acute hypoxic respiratory failure, COVID-19 PUI, rule out CVA and with hypertensive urgency. Neurology was consulted. repeat CT head on 01/28/21 showed remote right MCA infarction.. Daily clinical course: 01/22/2021; neuro work-up is in progress, follow PT OT eval. Neurology consult, continue antibiotics and supportive care 01/23/2021; patient went into acute respiratory failure requiring intubation and ventilatory support. Patient is transferred to ICU, pulmonary critical consulted, hypotensive started on Levophed. Pulmonary critical, cardiology and neurology following the patient. updated by Dr. Cho 01/24: Patient is awaiting further neuro imaging and is restrained the time my examination. Patient is not sedated and on assist control tidal volume 500, rate of 24, PEEP of 8 on FiO2 70%. Patient is severely agitated and is started on propofol drip per [facility]. He has hypophosphatemia today which was repleted. We will repeat BMP and phosphate level in the a.m. 01/25: Patient has hypokalemia today which was repleted today. Cr decreased to 1.2 from 1.5. Hypophosphatemia is resolved. Awaiting MRI brain. Sedated with propofol and on AC TV 500, R 20, PEEP 10, on FiO2 80%. Levophed was off at the time of my examination. Awaiting MRI . 01/26: The time my examination patient is sedated on propofol and this morning he has worsening hypernatremia and creatinine. The time examination patient is on assist control tidal volume 500, rate of 16, PEEP of 10 and 80% FiO2. Patient will follow commands with sedation vacation. Neurology ordered a repeat CT head bleed to assess if patient can be restarted on p.o. anticoagulation. We will increase the water flushes. 01/27: CTH obtained yesterday shows evidence of remote right MCA infarct. Patient remains sedated with Propofol and on MV AC TV 500, R 16, PEEP 10 and FiO2 80%. Bowel regimen started, will continue to trend CBC/BMP. 01/28 Patient with acute respiratory failure, afib, hypertension. Remote right MCA stroke seen on CT Head done on 01/26. Neurology following. Completed Rocephin and Zithromax for pneumonia 01/29: Noted coffee-ground discharges from [facility]GT today, hold any heparin product and aspirin. Started on Protonix drip. Monitor H&H every 8 hours consulted GI. Hold tube feeding for now. 01/30: Noted to have recurrent nose bleed from left nostrils. discussed with RN to apply epinephrine spray and nasal packing. Continue to monitor H&H. Continue PPI. Creatinine trending up consulted nephrology, also started on half-normal saline. Monitor BMP. GI recommended conservative management. Continue to follow. 01/31: Renal function cont to decline with elevated Cr/BUN. Placed vascath, planned to HD. updated family by dr Clark. Patient remains mechanical ventilation. Subjective Date of service: 01/31/21 Principal diagnosis: CVA Interval history: Patient seen and examined. Medical records and medication list reviewed. No acute event overnight noted by the RN. Patient on MV, Renal function declining Discussed plan of care at bedside with patient's RN. Objective - Exam Narrative Exam: - Physical exam Narrative exam: General appearance: Present: no acute distress, obese, other (sedated on mechanical ventilation) - EENT Eyes: Present: PERRL ENT: clear oral mucosa, noted bloody discharge from left nostril - Neck Neck: Present: normal ROM - Respiratory Respiratory effort: normal Respiratory: bilateral: diminished - Cardiovascular Rhythm: regular Heart Sounds: Present: S1 & S2. Absent: systolic murmur, diastolic murmur - Extremities Extremities: no ischemia, pulses intact, pulses symmetrical, No edema, normal temperature, normal color Peripheral Pulses: within normal limits - Abdominal General gastrointestinal: soft, non-tender, non-distended, normal bowel sounds - Integumentary Integumentary: Present: warm, dry - Psychiatric Psychiatric: cooperative, agitated - Neurologic Neurologic: moves all extremities - Allied Health Allied health notes reviewed: nursing, RT - Constitutional Vitals: Vital Signs - 12hr 01/31/21 01/31/21 01/31/21 05:00 05:40 06:00 Temperature 102.6 F H Pulse Rate 96 H 96 H Pulse Rate [ From Monitor] Respiratory 16 16 17 Rate Blood Pressure 105/67 107/66 O2 Sat by Pulse 94 98 Oximetry 01/31/21 01/31/21 01/31/21 07:00 07:05 07:11 Temperature 103.1 F H Pulse Rate 98 H 95 H 107 H Pulse Rate [ From Monitor] Respiratory 16 21 17 Rate Blood Pressure 112/66 112/66 112/66 O2 Sat by Pulse 93 93 93 Oximetry 01/31/21 01/31/21 01/31/21 07:15 07:21 07:25 Temperature Pulse Rate 89 94 H 86 Pulse Rate [ From Monitor] Respiratory 16 18 16 Rate Blood Pressure 112/66 112/66 112/66 O2 Sat by Pulse 94 93 94 Oximetry 01/31/21 01/31/21 01/31/21 07:31 07:35 07:41 Temperature Pulse Rate 93 H 90 95 H Pulse Rate [ From Monitor] Respiratory 15 16 15 Rate Blood Pressure 112/66 112/66 112/66 O2 Sat by Pulse 94 93 94 Oximetry 01/31/21 01/31/21 01/31/21 07:45 07:51 07:55 Temperature Pulse Rate 80 91 H 97 H Pulse Rate [ From Monitor] Respiratory 19 15 15 Rate Blood Pressure 112/66 112/66 112/66 O2 Sat by Pulse 94 94 94 Oximetry 01/31/21 01/31/21 01/31/21 08:00 08:05 08:11 Temperature Pulse Rate 86 87 88 Pulse Rate [ 93 H From Monitor] Respiratory 15 16 16 Rate Blood Pressure 109/63 109/63 109/63 O2 Sat by Pulse 94 95 94 Oximetry 01/31/21 01/31/21 01/31/21 08:15 08:21 08:25 Temperature Pulse Rate 90 95 H 99 H Pulse Rate [ From Monitor] Respiratory 15 18 17 Rate Blood Pressure 109/63 109/63 109/63 O2 Sat by Pulse 95 93 92 Oximetry 01/31/21 01/31/21 01/31/21 08:31 08:35 08:41 Temperature Pulse Rate 89 92 H 96 H Pulse Rate [ From Monitor] Respiratory 18 16 16 Rate Blood Pressure 109/63 109/63 109/63 O2 Sat by Pulse 93 93 93 Oximetry 01/31/21 01/31/21 01/31/21 08:45 08:51 08:55 Temperature Pulse Rate 90 93 H 84 Pulse Rate [ From Monitor] Respiratory 12 16 9 L Rate Blood Pressure 109/63 109/63 109/63 O2 Sat by Pulse 93 93 93 Oximetry 01/31/21 01/31/21 01/31/21 09:00 09:05 09:11 Temperature Pulse Rate 96 H 101 H 94 H Pulse Rate [ From Monitor] Respiratory 16 16 16 Rate Blood Pressure 114/67 114/67 114/67 O2 Sat by Pulse 93 93 94 Oximetry 01/31/21 01/31/21 01/31/21 09:15 09:21 09:25 Temperature Pulse Rate 90 95 H 85 Pulse Rate [ From Monitor] Respiratory 16 14 14 Rate Blood Pressure 114/67 114/67 114/67 O2 Sat by Pulse 93 94 94 Oximetry 01/31/21 01/31/21 01/31/21 09:31 09:35 09:41 Temperature Pulse Rate 101 H 96 H 87 Pulse Rate [ From Monitor] Respiratory 15 13 13 Rate Blood Pressure 114/67 114/67 114/67 O2 Sat by Pulse 95 94 95 Oximetry 01/31/21 01/31/21 01/31/21 09:45 09:51 09:55 Temperature Pulse Rate 88 103 H 89 Pulse Rate [ From Monitor] Respiratory 16 18 18 Rate Blood Pressure 114/67 114/67 114/67 O2 Sat by Pulse 96 95 95 Oximetry 01/31/21 01/31/21 01/31/21 10:00 10:05 10:11 Temperature Pulse Rate 99 H 91 H 85 Pulse Rate [ From Monitor] Respiratory 16 15 0 L Rate Blood Pressure 122/80 122/80 122/80 O2 Sat by Pulse 94 93 89 Oximetry 01/31/21 01/31/21 01/31/21 10:15 10:16 10:20 Temperature Pulse Rate 75 95 H Pulse Rate [ From Monitor] Respiratory 10 L 14 9 L Rate Blood Pressure 93/58 102/58 O2 Sat by Pulse 92 90 Oximetry 01/31/21 01/31/21 01/31/21 10:25 10:30 10:35 Temperature Pulse Rate 90 87 89 Pulse Rate [ From Monitor] Respiratory 9 L 7 L 0 L Rate Blood Pressure 103/61 103/59 97/62 O2 Sat by Pulse 91 93 91 Oximetry 01/31/21 01/31/21 01/31/21 10:40 10:45 10:50 Temperature Pulse Rate 92 H 87 91 H Pulse Rate [ From Monitor] Respiratory 7 L 13 14 Rate Blood Pressure 103/60 110/57 104/63 O2 Sat by Pulse 89 89 92 Oximetry 01/31/21 01/31/21 01/31/21 10:55 11:00 11:05 Temperature Pulse Rate 87 92 H 95 H Pulse Rate [ From Monitor] Respiratory 14 13 23 Rate Blood Pressure 104/65 106/64 104/66 O2 Sat by Pulse 92 92 93 Oximetry 01/31/21 01/31/21 01/31/21 11:10 11:15 11:16 Temperature Pulse Rate 88 99 H Pulse Rate [ From Monitor] Respiratory 21 15 12 Rate Blood Pressure 107/58 105/65 O2 Sat by Pulse 93 92 Oximetry 01/31/21 01/31/21 01/31/21 11:20 11:25 11:30 Temperature Pulse Rate 80 86 93 H Pulse Rate [ From Monitor] Respiratory 16 16 11 L Rate Blood Pressure 115/64 107/62 113/63 O2 Sat by Pulse 93 93 93 Oximetry 01/31/21 01/31/21 01/31/21 11:35 11:40 11:43 Temperature 99.8 F H Pulse Rate 83 100 H Pulse Rate [ From Monitor] Respiratory 16 11 L Rate Blood Pressure 105/62 115/71 O2 Sat by Pulse 89 90 Oximetry 01/31/21 01/31/21 01/31/21 11:45 11:50 11:55 Temperature Pulse Rate 90 86 92 H Pulse Rate [ From Monitor] Respiratory 14 15 15 Rate Blood Pressure 111/67 111/67 106/68 O2 Sat by Pulse 91 92 93 Oximetry 01/31/21 01/31/21 01/31/21 12:00 12:05 12:10 Temperature Pulse Rate 93 H 87 89 Pulse Rate [ 88 From Monitor] Respiratory 16 16 17 Rate Blood Pressure 124/64 100/66 105/66 O2 Sat by Pulse 94 93 93 Oximetry 01/31/21 01/31/21 12:15 16:00 Temperature Pulse Rate 91 H Pulse Rate [ 93 H From Monitor] Respiratory 16 18 Rate Blood Pressure 103/64 O2 Sat by Pulse 93 91 Oximetry - Labs CBC & Chem 7: 02/02/21 04:40 02/02/21 04:40 Labs: Abnormal lab results 01/30/21 01/30/21 01/30/21 Range/Units 16:26 23:10 23:32 Hgb 9.9 L (11.8-15.2) gm/dl Hct 29.5 L (35.5-45.6) % POC ABG pCO2 (32.0-48.0) mmHg POC ABG pO2 (83-108) mmHg ABG Hemoglobin (12.0-17.5) ABG Oxyhemoglobin (94-98) ABG Potassium (3.40-4.50) mmol/L ABG Glucose (65-95) mg/dL Sodium (137-145) mmol/L Carbon Dioxide (22-30) mmol/L BUN (9-20) mg/dL Creatinine (0.8-1.3) mg/dL Glucose (75-100) mg/dL POC Glucose 146 H 143 H (70-105) mg/dL Calcium (8.4-10.2) mg/dL Arterial Blood Glucose (65-95) mg/dL Arterial Blood Ionized Calcium (4.6-5.3) mg/dL Urine Creatinine (0.1-20.0) mg/dL Urine Total Protein (5-11.8) mg/dL 01/30/21 01/31/21 01/31/21 Range/Units Unknown 05:00 05:45 Hgb (11.8-15.2) gm/dl Hct (35.5-45.6) % POC ABG pCO2 55.0 H (32.0-48.0) mmHg POC ABG pO2 73.2 L (83-108) mmHg ABG Hemoglobin 10.6 L (12.0-17.5) ABG Oxyhemoglobin 92.6 L (94-98) ABG Potassium 4.7 H (3.40-4.50) mmol/L ABG Glucose 155 H (65-95) mg/dL Sodium 146 H (137-145) mmol/L Carbon Dioxide 36 H (22-30) mmol/L BUN 118 H (9-20) mg/dL Creatinine 5.2 H D (0.8-1.3) mg/dL Glucose 146 H (75-100) mg/dL POC Glucose (70-105) mg/dL Calcium 8.1 L (8.4-10.2) mg/dL Arterial Blood Glucose 155 H (65-95) mg/dL Arterial Blood Ionized Calcium 4.2 L (4.6-5.3) mg/dL Urine Creatinine 132.3 H (0.1-20.0) mg/dL Urine Total Protein 504 H (5-11.8) mg/dL 01/31/21 01/31/21 Range/Units 05:57 11:18 Hgb (11.8-15.2) gm/dl Hct (35.5-45.6) % POC ABG pCO2 (32.0-48.0) mmHg POC ABG pO2 (83-108) mmHg ABG Hemoglobin (12.0-17.5) ABG Oxyhemoglobin (94-98) ABG Potassium (3.40-4.50) mmol/L ABG Glucose (65-95) mg/dL Sodium (137-145) mmol/L Carbon Dioxide (22-30) mmol/L BUN (9-20) mg/dL Creatinine (0.8-1.3) mg/dL Glucose (75-100) mg/dL POC Glucose 138 H 131 H (70-105) mg/dL Calcium (8.4-10.2) mg/dL Arterial Blood Glucose (65-95) mg/dL Arterial Blood Ionized Calcium (4.6-5.3) mg/dL Urine Creatinine (0.1-20.0) mg/dL Urine Total Protein (5-11.8) mg/dL HEART Score - HEART Score Troponin: Troponin T < 0.010 ng/mL (0.00-0.029) 01/20/21 19:26
[2021-01-31] MEDS: ACETAMINOPHEN 325 MG TAB PO PRN (19:34)
--- NOTE | 2021-01-31 20:44 | Gastroenterology Progress Note ---
Assessment and Plan hgb from ABG stable, no overt bleeding Therefore, the structure risks of endoscopy would outweigh the benefits continue proton pump inhibitor and continue to monitor GI will sign off please call back if needed - Patient Problems (1) Coffee ground emesis Current Visit: Yes Status: Acute Subjective Date of service: 01/31/21 Principal diagnosis: CVA Interval history: Patient intubated hgb stable The suction canister from the patient's OG tube has dark brown material, no blood Objective - Constitutional Vitals: Temp Pulse Resp BP Pulse Ox 101.3 F H 96 H 16 86/53 92 01/31/21 19:30 01/31/21 20:00 01/31/21 20:00 01/31/21 20:00 01/31/21 20:00 General appearance: other (intubated) - Labs CBC & Chem 7: 01/30/21 23:10 01/31/21 05:45 Labs: Laboratory Results - last 24 hr 01/30/21 01/30/21 01/30/21 23:10 23:32 Unknown Hgb 9.9 L Hct 29.5 L ABG pH POC ABG pCO2 POC ABG pO2 POC ABG HCO3 ABG O2 Saturation POC ABG Base Excess ABG Hemoglobin ABG Oxyhemoglobin ABG Methemoglobin ABG Sodium ABG Potassium ABG Chloride ABG Glucose Carboxyhemoglobin FiO2 % Sodium Potassium Chloride Carbon Dioxide Anion Gap BUN Creatinine Estimated GFR BUN/Creatinine Ratio Glucose POC Glucose 143 H Calcium Arterial Blood Glucose Arterial Blood Ionized Calcium Urine Eosinophils None seen 01/31/21 01/31/21 01/31/21 05:00 05:45 05:57 Hgb Hct ABG pH 7.383 POC ABG pCO2 55.0 H POC ABG pO2 73.2 L POC ABG HCO3 32.0 ABG O2 Saturation 93.4 POC ABG Base Excess 5.8 ABG Hemoglobin 10.6 L ABG Oxyhemoglobin 92.6 L ABG Methemoglobin 0.3 ABG Sodium 141.6 ABG Potassium 4.7 H ABG Chloride 102.0 ABG Glucose 155 H Carboxyhemoglobin 0.6 FiO2 % 70.0 Sodium 146 H Potassium 5.0 Chloride 101.9 Carbon Dioxide 36 H Anion Gap 13 BUN 118 H Creatinine 5.2 H D Estimated GFR 14 BUN/Creatinine Ratio 23 Glucose 146 H POC Glucose 138 H Calcium 8.1 L Arterial Blood Glucose 155 H Arterial Blood Ionized Calcium 4.2 L Urine Eosinophils 01/31/21 11:18 Hgb Hct ABG pH POC ABG pCO2 POC ABG pO2 POC ABG HCO3 ABG O2 Saturation POC ABG Base Excess ABG Hemoglobin ABG Oxyhemoglobin ABG Methemoglobin ABG Sodium ABG Potassium ABG Chloride ABG Glucose Carboxyhemoglobin FiO2 % Sodium Potassium Chloride Carbon Dioxide Anion Gap BUN Creatinine Estimated GFR BUN/Creatinine Ratio Glucose POC Glucose 131 H Calcium Arterial Blood Glucose Arterial Blood Ionized Calcium Urine Eosinophils
[2021-01-31] MEDS: NORepinephrine/NS 4 MG-250 ML 4 MG/250 ML BAG IV SCH (22:15)
[2021-02-01] MEDS: INSULIN LISPRO 100 UNIT/ML SUB-Q SCH ×4 (01:08→17:27)
[2021-02-01] MEDS: OXYMETAZOLINE 0.05% NASAL SPRAY NS SCH (01:10)
[2021-02-01] MEDS: ACETAMINOPHEN 325 MG TAB PO PRN (03:11)
[2021-02-01] MEDS: PANTOPRAZOLE 80 MG in SODIUM CHLORIDE 0.9% 100 ML IV SCH (06:44)
[2021-02-01 07:27] LABS: Hematocrit 26.3 % (35.5-45.6); Hemoglobin 8.9 gm/dl (11.8-15.2); Mean Corpuscular HGB Conc 34 % (32-34); Mean Corpuscular Volume 97 fl (84-94); Platelet Count 258 K/mm3 (140-440); Red Blood Count 2.72 M/mm3 (3.65-5.03); Red Cell Distribution Width 15.1 % (13.2-15.2)
[2021-02-01 07:42] LABS: Calcium 8.3 mg/dL (8.4-10.2)
[2021-02-01] MEDS ORDERED: SODIUM CHLORIDE 0.9% 100 ML IV PRN (08:10)
--- NOTE | 2021-02-01 08:13 | Event Note ---
Date: 02/01/21 Patient require urgent hemodialysis due to significant decline in the renal function, oliguria and hyperkalemia. Unable to reach his , daughter or his Niece, Elvira Blainero . Medical necessity. D/w . HD orders placed.
[2021-02-01] MEDS: DOCUSATE SODIUM 100 MG/10 ML ORAL LIQD FEEDTUBE SCH (09:52)
--- NOTE | 2021-02-01 11:28 | Progress Note ---
Assessment and Plan Cultures: Blood culture 01/20/2021 no growth so far Urine culture 01/20/2021 no growth so far Sputum culture 01/22/2021 Berta A/P: 65-year-old man past medical history diabetes, hypertension, A. fib presented to the hospital with weakness, now intubated, sedated with possible CVA. #Acute hypoxic respiratory failure: on the vent. #Sirs/sepsis: With fevers, white count. Central vs infectious etiology. Infectious workup negative so far. Given probably acute CVA with possible evolution may be central etiology #CVA #[place]: now requiring emergent HD. Recs: -Fevers are very high. Will escalate to vancomycin/meropenem for now, though if no response will have to assume non-infectious etiology. -Pending brain MRI Poor prognosis Thank you for the consult, we will continue to follow. Dr. Feliciano covering this weekend Maria Del Carmen Parker MD [facility] ([facility]) O: [phone] F: [phone] Subjective Date of service: 02/01/21 Principal diagnosis: CVA Interval history: Persistently febrile to 103. White count increasing now 14. Requiring medically emergent HD. Objective - Exam Narrative Exam: Physical Exam: Constitutional: intubated Head, Ears, Nose: Normocephalic, atraumatic. Eyes: Conjunctivae/corneas clear. No icterus. No ptosis. Neck: ETT Oral: ETT Cardiovascular: S1, S2 normal. Respiratory: Good air entry, clear to auscultation bilaterally GI: Soft, non-tender; bowel sounds normal. No peritoneal signs. Musculoskeletal: No pedal edema, no cyanosis. Skin: No rash or abscess Hem/Lymphatic: No palpable cervical or supraclavicular nodes. Psych: no agitation. Neurological: no agitation - Constitutional Vitals: Vital Signs Temp Pulse Resp BP Pulse Ox 102.2 F H 80 15 113/67 96 02/01/21 07:00 02/01/21 11:06 02/01/21 10:30 02/01/21 10:30 02/01/21 11:06 Temperature -Last 24 Hours Temperature 102.2 F Temperature 102.2 F Temperature 101.6 F Temperature 101.3 F Temperature 100.2 F Temperature 99.8 F - Labs CBC & Chem 7: 02/01/21 07:15 02/01/21 07:15 Labs: Abnormal lab results 01/31/21 01/31/21 02/01/21 Range/Units 17:25 23:07 03:44 WBC (4.5-11.0) K/mm3 RBC (3.65-5.03) M/mm3 Hgb (11.8-15.2) gm/dl Hct (35.5-45.6) % MCV (84-94) fl MCH (28-32) pg ABG pH 7.292 L (7.320-7.450) POC ABG pCO2 61.1 H (32.0-48.0) mmHg ABG Hemoglobin 9.7 L (12.0-17.5) ABG Potassium 5.4 H (3.40-4.50) mmol/L ABG Glucose 145 H (65-95) mg/dL Potassium (3.6-5.0) mmol/L Carbon Dioxide (22-30) mmol/L BUN (9-20) mg/dL Creatinine (0.8-1.3) mg/dL Glucose (75-100) mg/dL POC Glucose 138 H 124 H (70-105) mg/dL Calcium (8.4-10.2) mg/dL Arterial Blood Glucose 145 H (65-95) mg/dL Arterial Blood Ionized Calcium 4.1 L (4.6-5.3) mg/dL 02/01/21 02/01/21 02/01/21 Range/Units 05:16 07:15 07:15 WBC 14.0 H (4.5-11.0) K/mm3 RBC 2.72 L (3.65-5.03) M/mm3 Hgb 8.9 L (11.8-15.2) gm/dl Hct 26.3 L (35.5-45.6) % MCV 97 H (84-94) fl MCH 33 H (28-32) pg ABG pH (7.320-7.450) POC ABG pCO2 (32.0-48.0) mmHg ABG Hemoglobin (12.0-17.5) ABG Potassium (3.40-4.50) mmol/L ABG Glucose (65-95) mg/dL Potassium 5.6 H (3.6-5.0) mmol/L Carbon Dioxide 31 H (22-30) mmol/L BUN 165 H (9-20) mg/dL Creatinine 8.4 H D (0.8-1.3) mg/dL Glucose 128 H (75-100) mg/dL POC Glucose 130 H (70-105) mg/dL Calcium 8.3 L (8.4-10.2) mg/dL Arterial Blood Glucose (65-95) mg/dL Arterial Blood Ionized Calcium (4.6-5.3) mg/dL
[2021-02-01 11:37] LABS: Hepatitis B Surface Antigen Non-Reactive (Negative); Hepatitis C Virus Antibody Non-Reactive (NonReactive)
--- NOTE | 2021-02-01 11:52 | Progress Note ---
Assessment and Plan 1. Acute kidney injury: Vasomotor [place] in the setting of shock. Low FeNa. Renal US negative for hydro. Suspect ATN. Continue IV fluids. Monitor renal function. Creatinine level increasing. UOP is decreasing. Renal prognosis is guarded. Avoid nephrotoxic agents. Meds dosage based on GFR. Monitor for [employer] needs. Patient require hemodialysis due to significant decline in renal function, oliguria, hyperkalemia and volume overload. D/w patient's over the phone the indications, benefits, risks and alternatives involved in hemodialysis. She voiced understanding and gave verbal consent. 2. FEN: Hyperkalemia, HD today, monitor. Hypernatremia, monitor. Monitor lytes and volume status. 3. Acute hypoxemic respiratory failure: Currently intubated on vent. Followed by Pulmonary. 4. Shock: Likely septic. Right middle and lower lobe pneumonia. On Levophed, monitor. On Meropenem and Vanco. Followed by ID. 5. Acute metabolic encephalopathy: CT head negative for acute process. 6. A.fib. 7. Acute GI bleed: Followed by GI. 8. Anemia, not POA: Monitor. 9. DM type 2. 10. Seizure. Subjective: Patient was seen and examined at the bedside. Examination: General appearance: well-developed, appears stated age, intubated on vent HEENT: atraumatic, pupils appears equal Neck: trachea midline Respiratory: Coarse breath sounds heard Heart: S1S2, no murmur Abdomen: soft, obese, bowel sounds heard, NT Integumentary: no obvious rash Neurologic: sedated Ext: no edema noted : Wilde catheter Hemodialysis access: R femoral catheter Subjective Date of service: 02/01/21 Principal diagnosis: CVA Objective - Vital Signs Vital signs: Vital Signs - 12hr 02/01/21 02/01/21 02/01/21 00:00 01:00 02:00 Temperature Pulse Rate 89 82 84 Pulse Rate [ 82 From Monitor] Respiratory 16 16 11 L Rate Blood Pressure 113/54 99/56 124/64 O2 Sat by Pulse 96 94 96 Oximetry 02/01/21 02/01/21 02/01/21 03:00 03:10 03:55 Temperature 102.2 F H Pulse Rate 87 94 H Pulse Rate [ From Monitor] Respiratory 16 Rate Blood Pressure 97/67 O2 Sat by Pulse 96 96 Oximetry 02/01/21 02/01/21 02/01/21 04:00 04:16 04:30 Temperature Pulse Rate 95 H 82 88 Pulse Rate [ 82 From Monitor] Respiratory 16 16 15 Rate Blood Pressure 113/67 113/67 113/67 O2 Sat by Pulse 97 97 95 Oximetry 02/01/21 02/01/21 02/01/21 04:46 05:00 05:16 Temperature Pulse Rate 85 94 H 77 Pulse Rate [ From Monitor] Respiratory 15 16 20 Rate Blood Pressure 113/67 113/67 113/67 O2 Sat by Pulse 96 97 95 Oximetry 02/01/21 02/01/21 02/01/21 05:30 05:46 06:00 Temperature Pulse Rate 90 78 90 Pulse Rate [ From Monitor] Respiratory 13 20 13 Rate Blood Pressure 113/67 113/67 113/67 O2 Sat by Pulse 96 94 94 Oximetry 02/01/21 02/01/21 02/01/21 06:16 06:30 06:46 Temperature Pulse Rate 65 90 83 Pulse Rate [ From Monitor] Respiratory 20 20 17 Rate Blood Pressure 113/67 113/67 113/67 O2 Sat by Pulse 95 92 94 Oximetry 02/01/21 02/01/21 02/01/21 07:00 07:16 07:30 Temperature 102.2 F H Pulse Rate 90 97 H 93 H Pulse Rate [ From Monitor] Respiratory 21 12 19 Rate Blood Pressure 113/67 113/67 113/67 O2 Sat by Pulse 93 94 94 Oximetry 02/01/21 02/01/21 02/01/21 07:41 07:46 08:00 Temperature Pulse Rate 82 99 H 90 Pulse Rate [ 93 H From Monitor] Respiratory 15 20 Rate Blood Pressure 113/67 113/67 113/67 O2 Sat by Pulse 94 93 91 Oximetry 02/01/21 02/01/21 02/01/21 08:16 08:30 08:46 Temperature Pulse Rate 78 81 75 Pulse Rate [ From Monitor] Respiratory 20 17 20 Rate Blood Pressure 113/67 113/67 113/67 O2 Sat by Pulse 91 91 93 Oximetry 02/01/21 02/01/21 02/01/21 09:00 09:16 09:30 Temperature Pulse Rate 97 H 91 H 84 Pulse Rate [ From Monitor] Respiratory 11 L 20 15 Rate Blood Pressure 113/67 113/67 113/67 O2 Sat by Pulse 91 92 89 Oximetry 02/01/21 02/01/21 02/01/21 09:46 10:00 10:16 Temperature Pulse Rate 90 86 96 H Pulse Rate [ From Monitor] Respiratory 20 20 22 Rate Blood Pressure 113/67 113/67 113/67 O2 Sat by Pulse 92 88 88 Oximetry 02/01/21 02/01/21 02/01/21 10:30 10:46 11:00 Temperature Pulse Rate 84 93 H 86 Pulse Rate [ From Monitor] Respiratory 15 19 21 Rate Blood Pressure 113/67 113/67 113/67 O2 Sat by Pulse 89 87 96 Oximetry 02/01/21 02/01/21 11:06 11:16 Temperature Pulse Rate 80 80 Pulse Rate [ From Monitor] Respiratory 23 Rate Blood Pressure 113/67 O2 Sat by Pulse 96 97 Oximetry - Lab 02/01/21 07:15 02/01/21 07:15 Most recent lab results ABG pH 7.292 (7.320-7.450) L 02/01/21 03:44 ABG O2 Saturation 96.5 (0-100) 02/01/21 03:44 Calcium 8.3 mg/dL (8.4-10.2) L 02/01/21 07:15 Phosphorus 2.50 mg/dL (2.5-4.5) D 01/25/21 09:40 Magnesium 2.90 mg/dL (1.7-2.3) H 01/24/21 08:44 Urine Creatinine 132.3 mg/dL (0.1-20.0) H 01/30/21 Unknown Urine Sodium 18 mmol/L 01/30/21 Unknown Urine Total Protein 504 mg/dL (5-11.8) H 01/30/21 Unknown Medications & Allergies - Medications Allergies/Adverse Reactions: Allergies No Known Allergies Allergy (Unverified 01/20/21 19:59) Home Medications: Home Medications Medication Instructions Recorded Confirmed Last Taken Type Amlodipine Besylate [Norvasc] 10 mg PO DAILY 01/20/21 01/20/21 01/19/21 History Atorvastatin [Lipitor Tab] 80 mg PO DAILY 01/20/21 01/20/21 01/19/21 History Banophen Anti-Itch 25 mg PO DAILY 01/20/21 01/20/21 01/19/21 History Metformin HCl [metFORMIN ER 500 mg PO DAILY 01/20/21 01/20/2101/19/21 History Osmotic] Metoprolol [Lopressor] 25 mg PO DAILY 01/20/21 01/20/21 01/19/21 History Active Medications: Generic Name Dose Route Start Last Admin Trade Name Freq PRN Reason Stop Dose Admin Acetaminophen 650 mg 01/20/21 23:38 02/01/21 03:11 Acetaminophen 325 Mg Tab PO 650 mg Q4H PRN Administration Pain MILD(1-3)/Fever >100.5/[place] Acetaminophen 650 mg 01/23/21 08:23 01/31/21 04:40 Acetaminophen 650 Mg Rect Supp HI 650 mg Q4H PRN Administration Pain, Mild (1-3) IF NPO Albuterol 2.5 mg 01/20/21 23:38 Albuterol 2.5 Mg/3 Ml Nebu IH Q4HRT PRN Shortness Of Breath Lipase/Protease/Amylase 1 each 01/24/21 08:04 Lipase 10,500/Protease 25,000/Amylase 43,750 (Units) Dr Cap FEEDTUBE PRN PRN For Clogged Feeding Tube Atorvastatin Calcium 80 mg 01/21/21 10:00 02/01/21 09:52 Atorvastatin 40 Mg Tab PO 80 mg DAILY NGUYEN Administration Dextrose 0 ml 01/20/21 23:38 Dextrose 50% In Water (25gm) 50 Ml Syringe IV Q30MIN PRN Hypoglycemia Protocol Docusate Sodium 100 mg 01/30/21 10:00 02/01/21 09:52 Docusate Sodium 100 Mg/10 Ml Oral Liqd FEEDTUBE 100 mg BID NGUYEN Administration Fentanyl 50 mcg 01/23/21 16:00 01/31/21 10:16 Fentanyl 100 Mcg/2 Ml Inj IV 50 mcg Q2H PRN Administration Pain , Severe (7-10) Hydralazine HCl 10 mg 01/20/21 23:46 Hydralazine 20 Mg/1 Ml Inj IV Q6H PRN htn Norepinephrine 4 mg in 250 mls @ 7.5 mls/hr 01/23/21 13:00 01/31/21 22:15 Levophed Drip 4 Mg/Ns 250 Ml IV 2 mcg/min TITR NGUYEN 7.5 mls/hr Administration Protocol 2 MCG/MIN Propofol 1,000 mg in 100 mls @ 3.468 mls/hr 01/24/21 11:00 01/29/21 09:15 Diprivan 10 Mg/Ml IV 0 mcg/kg/min TITR NGUYEN 0 mls/hr Titration Protocol 5 MCG/KG/MIN Pantoprazole Sodium 80 mg/ 100 mls @ 10 mls/hr 01/29/21 14:00 02/01/21 06:44 Sodium Chloride IV 02/01/21 13:59 8 mg/hr DIRECT NGUYEN 10 mls/hr Administration 8 MG/HR MEROPENEM/NS 1 GRAM/100 ML 1 gram in 100 mls @ 100 mls/hr 02/01/21 18:00 Merrem/Ns 1 Gram/100 Ml IV Q24H [facility] Protocol Sodium Chloride 100 mls @ 999 mls/hr 02/01/21 08:10 Nacl 0.9% IV PORTER PRN Hypotension Insulin Human Lispro 0 unit 01/21/21 00:00 02/01/21 05:35 Insulin Lispro 100 Unit/Ml SUB-Q Not Given Q6HR [facility] Protocol Lorazepam 2 mg 01/23/21 12:22 01/27/21 22:39 Lorazepam 2 Mg/Ml Vial IV 2 mg Q4H PRN Administration Agitation Ondansetron HCl 4 mg 01/20/21 23:38 Ondansetron 4 Mg/2 Ml Inj IV Q8H PRN Nausea And Vomiting Pantoprazole Sodium 40 mg 02/02/21 10:00 Pantoprazole 40 Mg Inj IV QDAY NGUYEN Senna 8.6 mg 01/27/21 09:59 01/28/21 09:34 Sennosides 8.6 Mg Tab PO 8.6 mg Q12H PRN Administration Laxative Effect Simple Syrup 15 ml 01/24/21 08:04 Simple Syrup 15 Ml FEEDTUBE PRN PRN Hypoglycemia Simple Syrup 30 ml 01/24/21 08:04 Simple Syrup 15 Ml FEEDTUBE PRN PRN Hypoglycemia Sodium Bicarbonate 325 mg 01/24/21 08:04 Sodium Bicarbonate 325 Mg Tab FEEDTUBE PRN PRN For Clogged Feeding Tube Sodium Chloride 10 ml 01/21/21 10:00 02/01/21 09:52 Sodium Chloride 0.9% 10 Ml Flush Syringe IV 10 ml BID NGUYEN Administration Sodium Chloride 10 ml 01/20/21 23:38 Sodium Chloride 0.9% 10 Ml Flush Syringe IV PRN PRN LINE FLUSH
--- NOTE | 2021-02-01 12:02 | Progress Note ---
Assessment and Plan 65 y/o male with acute respiratory failure secondary to altered mental state from possible stroke vs worsening stroke with hypotension requiring pressors. 02/01/21: HD today, renal finally able to reach family for consent. Continue FiO2 at 100% for now and after HD will attempt to wean. Would keep PEEP at current levels or increase is needed given FiO2 requirements. Volume removal should help. Still needs neuro assessment but will need to wait until BUN is better so that mental status can truly be assessed. Continue to leave off sedation as long as patient is not a danger to self and no vent issues. Prognosis remains guarded. 01/31/21: will place HD catheter. SPoke with renal who will speak with family. Increased PEEP yesterday to 12, may increase to 14 given CXR appearance but if HD is about to happen soon, will wait another 24 and see how much volume removal helps. Suggest speaking with injury prevention coordinator neurology and ask them to reassess the patient as he continues to not move his arms. Also need to know if the MRI is to be done with contrast. Continue supportive measures. Guarded prognosis. 01/30/21: Need to re-order MRI. NOw that kidney function is worse, likely not able to get contrast. Neurology has signed off so unable to ask them. Follow up renal recs. Patient is still making urine and lytes are ok. Down to 70% now with good sats. Continue to wean for Sats >88%. Very very guarded prognosis. 01/29/21: If pump is working, will obtain MRI. Will bronch patient today given increase in oxygen requirement and blood in nose and og tube. Worsening renal function now. Need to send urine lytes and obtain renal ultrasound. Guarded prognosis. Will pack nares with Affrin coated gauze. 01/28/21: Neurology has signed off. Will speak with CM about possible LTACH. They (neuro) are still asking for MRI, but not sure how this will foreign exchange dealer if they have signed off. Ok with anticoagulation and aggressive lipid control. No BM yet, BUN up to 46 but HgB has stayed the same. Will continue to monitor. 01/27/21: Stop Lasix therapy. Follow up any new neurology recs based on new head CT findings. Concern for possible bleeding given rise in BUN and drop in H/H, although patient could have been hemoconcentrated. Will start Bowel Regimen and be mindful of color of stool. No obvious bleeding has been witnessed. Continue to wean sedation for rass of 0 if possible. Wean Vent for sats >88%. I dropped FiO2 down to 75 this morning. Guarded prognosis. 01/26/21: Continue supportive measures. Agree with repeat Head CT. Sedation for patient safety but needs daily vacations. Guarded prognosis. 1. Place central line 2. Place art line 3. Vasopressor therapy 4. No sedation as of right now 5. Consider repeat CT head 6. Guarded prognosis. CCT 31 minutes. Subjective Date of service: 02/01/21 Principal diagnosis: CVA Interval history: FiO2 was down to 80 but had to bump up 100 secondary to desats. Now in the low 90's. Patient will get HD today. HgB continues to trend down and today is the last day of the protonix drip. GI has signed off. Patient is on very low dose of levophed, likely secondary to metabolic acidosis. Catheter for HD placed on yesterday. Objective Vital Signs - 12hr 02/01/21 02/01/21 02/01/21 00:00 01:00 02:00 Temperature Pulse Rate 89 82 84 Pulse Rate [ 82 From Monitor] Respiratory 16 16 11 L Rate Blood Pressure 113/54 99/56 124/64 O2 Sat by Pulse 96 94 96 Oximetry 02/01/21 02/01/21 02/01/21 03:00 03:10 03:55 Temperature 102.2 F H Pulse Rate 87 94 H Pulse Rate [ From Monitor] Respiratory 16 Rate Blood Pressure 97/67 O2 Sat by Pulse 96 96 Oximetry 02/01/21 02/01/21 02/01/21 04:00 04:16 04:30 Temperature Pulse Rate 95 H 82 88 Pulse Rate [ 82 From Monitor] Respiratory 16 16 15 Rate Blood Pressure 113/67 113/67 113/67 O2 Sat by Pulse 97 97 95 Oximetry 02/01/21 02/01/21 02/01/21 04:46 05:00 05:16 Temperature Pulse Rate 85 94 H 77 Pulse Rate [ From Monitor] Respiratory 15 16 20 Rate Blood Pressure 113/67 113/67 113/67 O2 Sat by Pulse 96 97 95 Oximetry 02/01/21 02/01/21 02/01/21 05:30 05:46 06:00 Temperature Pulse Rate 90 78 90 Pulse Rate [ From Monitor] Respiratory 13 20 13 Rate Blood Pressure 113/67 113/67 113/67 O2 Sat by Pulse 96 94 94 Oximetry 02/01/21 02/01/21 02/01/21 06:16 06:30 06:46 Temperature Pulse Rate 65 90 83 Pulse Rate [ From Monitor] Respiratory 20 20 17 Rate Blood Pressure 113/67 113/67 113/67 O2 Sat by Pulse 95 92 94 Oximetry 02/01/21 02/01/21 02/01/21 07:00 07:16 07:30 Temperature 102.2 F H Pulse Rate 90 97 H 93 H Pulse Rate [ From Monitor] Respiratory 21 12 19 Rate Blood Pressure 113/67 113/67 113/67 O2 Sat by Pulse 93 94 94 Oximetry 02/01/21 02/01/21 02/01/21 07:41 07:46 08:00 Temperature Pulse Rate 82 99 H 90 Pulse Rate [ 93 H From Monitor] Respiratory 15 20 Rate Blood Pressure 113/67 113/67 113/67 O2 Sat by Pulse 94 93 91 Oximetry 02/01/21 02/01/21 02/01/21 08:16 08:30 08:46 Temperature Pulse Rate 78 81 75 Pulse Rate [ From Monitor] Respiratory 20 17 20 Rate Blood Pressure 113/67 113/67 113/67 O2 Sat by Pulse 91 91 93 Oximetry 02/01/21 02/01/21 02/01/21 09:00 09:16 09:30 Temperature Pulse Rate 97 H 91 H 84 Pulse Rate [ From Monitor] Respiratory 11 L 20 15 Rate Blood Pressure 113/67 113/67 113/67 O2 Sat by Pulse 91 92 89 Oximetry 02/01/21 02/01/21 02/01/21 09:46 10:00 10:16 Temperature Pulse Rate 90 86 96 H Pulse Rate [ From Monitor] Respiratory 20 20 22 Rate Blood Pressure 113/67 113/67 113/67 O2 Sat by Pulse 92 88 88 Oximetry 02/01/21 02/01/21 02/01/21 10:30 10:46 11:00 Temperature Pulse Rate 84 93 H 86 Pulse Rate [ From Monitor] Respiratory 15 19 21 Rate Blood Pressure 113/67 113/67 113/67 O2 Sat by Pulse 89 87 96 Oximetry 02/01/21 02/01/21 11:06 11:16 Temperature Pulse Rate 80 80 Pulse Rate [ From Monitor] Respiratory 23 Rate Blood Pressure 113/67 O2 Sat by Pulse 96 97 Oximetry Constitutional: comatose Eyes: non-icteric ENT: other (orally intubated, no sedation) Neck: supple Effort: normal Ascultation: Bilateral: diminished breath sounds Percussion: Bilateral: not dull Cardiovascular: irregular rhythm Gastrointestinal: normoactive bowel sounds, absent bowel sounds Integumentary: normal Extremities: no edema, pulses normal Neurologic: unable to assess CBC and BMP: 02/01/21 07:15 02/01/21 07:15 ABG, PT/INR, D-dimer: ABG ABG pH 7.292 (7.320-7.450) L 02/01/21 03:44 POC ABG pCO2 61.1 mmHg (32.0-48.0) H 02/01/21 03:44 POC ABG pO2 92.8 mmHg (83-108) 02/01/21 03:44 POC ABG HCO3 28.9 02/01/21 03:44 ABG O2 Saturation 96.5 (0-100) 02/01/21 03:44 PT/INR, D-dimer PT 14.2 Sec. (12.2-14.9) 01/28/21 10:01 INR 1.05 (0.87-1.13) 01/28/21 10:01 D-Dimer 229.34 ng/mlDDU (0-234) 01/20/21 23:20 Abnormal lab findings: Abnormal Labs 01/20/21 01/20/21 01/20/21 19:26 19:26 23:20 WBC RBC Hgb 15.3 H Hct 45.8 H MCV 98 H MCH 33 H MCHC RDW Lymph % (Auto) 5.2 L [place] % (Auto) 10.4 H Lymph # (Auto) 0.3 L Seg Neutrophils % 82.9 H Seg Neuts % (Manual) Lymphocytes % (Manual) Seg Neutrophils # Lymphocytes # (Manual) INR APTT ABG pH POC ABG pCO2 POC ABG pO2 ABG Hemoglobin ABG Oxyhemoglobin ABG Potassium ABG Glucose Carboxyhemoglobin Sodium Potassium Chloride 97.8 L Carbon Dioxide 33 H BUN Creatinine Glucose 127 H POC Glucose Calcium Phosphorus Magnesium Lactate Dehydrogenase 384 H C-Reactive Protein 2.70 H Albumin Triglycerides Cholesterol LDL Cholesterol Direct Arterial Blood Glucose Arterial Blood Ionized Calcium Urine Creatinine Urine Total Protein 0501/21/21 01/21/21 00:17 05:45 05:45 WBC RBC Hgb 15.9 H Hct 47.9 H MCV 98 H MCH 33 H MCHC RDW 15.3 H Lymph % (Auto) [place] % (Auto) Lymph # (Auto) Seg Neutrophils % Seg Neuts % (Manual) 96.0 H Lymphocytes % (Manual) 3.0 L Seg Neutrophils # Lymphocytes # (Manual) 0.2 L INR APTT ABG pH POC ABG pCO2 POC ABG pO2 ABG Hemoglobin ABG Oxyhemoglobin ABG Potassium ABG Glucose Carboxyhemoglobin Sodium Potassium Chloride 96.2 L Carbon Dioxide 35 H BUN Creatinine 0.7 L Glucose 142 H POC Glucose 119 H Calcium Phosphorus Magnesium Lactate Dehydrogenase C-Reactive Protein Albumin Triglycerides Cholesterol 210 H LDL Cholesterol Direct 155 H Arterial Blood Glucose Arterial Blood Ionized Calcium Urine Creatinine Urine Total Protein 01/21/21 01/21/21 01/21/21 05:56 09:33 15:13 WBC RBC Hgb Hct 45.8 H MCV 98 H MCH MCHC RDW Lymph % (Auto) [place] % (Auto) Lymph # (Auto) Seg Neutrophils % Seg Neuts % (Manual) Lymphocytes % (Manual) Seg Neutrophils # Lymphocytes # (Manual) INR APTT ABG pH POC ABG pCO2 POC ABG pO2 ABG Hemoglobin ABG Oxyhemoglobin ABG Potassium ABG Glucose Carboxyhemoglobin Sodium Potassium Chloride Carbon Dioxide BUN Creatinine Glucose POC Glucose 147 H 153 H Calcium Phosphorus Magnesium Lactate Dehydrogenase C-Reactive Protein Albumin Triglycerides Cholesterol LDL Cholesterol Direct Arterial Blood Glucose Arterial Blood Ionized Calcium Urine Creatinine Urine Total Protein 01/21/21 01/21/21 01/22/21 15:13 16:33 01:53 WBC RBC Hgb Hct MCV MCH MCHC RDW Lymph % (Auto) [place] % (Auto) Lymph # (Auto) Seg Neutrophils % Seg Neuts % (Manual) Lymphocytes % (Manual) Seg Neutrophils # Lymphocytes # (Manual) INR 1.14 H APTT ABG pH POC ABG pCO2 POC ABG pO2 ABG Hemoglobin ABG Oxyhemoglobin ABG Potassium ABG Glucose Carboxyhemoglobin Sodium Potassium Chloride Carbon Dioxide BUN Creatinine Glucose POC Glucose 126 H 112 H Calcium Phosphorus Magnesium Lactate Dehydrogenase C-Reactive Protein Albumin Triglycerides Cholesterol LDL Cholesterol Direct Arterial Blood Glucose Arterial Blood Ionized Calcium Urine Creatinine Urine Total Protein 06/01/21 06/01/21 06/01/21 06:06 12:05 16:51 WBC RBC Hgb Hct MCV MCH MCHC RDW Lymph % (Auto) [place] % (Auto) Lymph # (Auto) Seg Neutrophils % Seg Neuts % (Manual) Lymphocytes % (Manual) Seg Neutrophils # Lymphocytes # (Manual) INR APTT ABG pH POC ABG pCO2 POC ABG pO2 ABG Hemoglobin ABG Oxyhemoglobin ABG Potassium ABG Glucose Carboxyhemoglobin Sodium Potassium Chloride Carbon Dioxide BUN Creatinine Glucose POC Glucose 107 H 121 H 164 H Calcium Phosphorus Magnesium Lactate Dehydrogenase C-Reactive Protein Albumin Triglycerides Cholesterol LDL Cholesterol Direct Arterial Blood Glucose Arterial Blood Ionized Calcium Urine Creatinine Urine Total Protein 01/22/21 01/23/21 01/23/21 23:10 05:39 06:08 WBC RBC Hgb Hct MCV 101 H MCH 33 H MCHC RDW Lymph % (Auto) [place] % (Auto) Lymph # (Auto) Seg Neutrophils % Seg Neuts % (Manual) Lymphocytes % (Manual) Seg Neutrophils # Lymphocytes # (Manual) INR APTT ABG pH POC ABG pCO2 POC ABG pO2 ABG Hemoglobin ABG Oxyhemoglobin ABG Potassium ABG Glucose Carboxyhemoglobin Sodium Potassium Chloride Carbon Dioxide BUN Creatinine Glucose POC Glucose 143 H 150 H Calcium Phosphorus Magnesium Lactate Dehydrogenase C-Reactive Protein Albumin Triglycerides Cholesterol LDL Cholesterol Direct Arterial Blood Glucose Arterial Blood Ionized Calcium Urine Creatinine Urine Total Protein 01/23/21 01/23/21 01/23/21 11:27 13:55 17:54 WBC RBC Hgb Hct MCV MCH MCHC RDW Lymph % (Auto) [place] % (Auto) Lymph # (Auto) Seg Neutrophils % Seg Neuts % (Manual) Lymphocytes % (Manual) Seg Neutrophils # Lymphocytes # (Manual) INR APTT ABG pH 7.249 L POC ABG pCO2 83.0 H POC ABG pO2 82.8 L ABG Hemoglobin ABG Oxyhemoglobin ABG Potassium 4.8 H ABG Glucose 236 H Carboxyhemoglobin Sodium Potassium Chloride Carbon Dioxide 33 H BUN 32 H Creatinine 1.6 H D Glucose 146 H POC Glucose 218 H Calcium 8.3 L Phosphorus Magnesium 3.00 H Lactate Dehydrogenase C-Reactive Protein Albumin 3.2 L Triglycerides Cholesterol LDL Cholesterol Direct Arterial Blood Glucose 236 H Arterial Blood Ionized Calcium 4.5 L Urine Creatinine Urine Total Protein 01/23/21 01/24/21 01/24/21 17:54 03:11 04:56 WBC RBC Hgb Hct MCV 100 H MCH MCHC RDW 15.4 H Lymph % (Auto) [place] % (Auto) Lymph # (Auto) Seg Neutrophils % Seg Neuts % (Manual) Lymphocytes % (Manual) Seg Neutrophils # Lymphocytes # (Manual) INR APTT ABG pH POC ABG pCO2 POC ABG pO2 ABG Hemoglobin ABG Oxyhemoglobin ABG Potassium ABG Glucose Carboxyhemoglobin Sodium Potassium Chloride Carbon Dioxide BUN Creatinine Glucose POC Glucose 131 H Calcium Phosphorus 2.00 L Magnesium Lactate Dehydrogenase C-Reactive Protein Albumin Triglycerides Cholesterol LDL Cholesterol Direct Arterial Blood Glucose Arterial Blood Ionized Calcium Urine Creatinine Urine Total Protein 01/24/21 01/24/21 01/24/21 04:56 05:00 05:47 WBC RBC Hgb Hct MCV MCH MCHC RDW Lymph % (Auto) [place] % (Auto) Lymph # (Auto) Seg Neutrophils % Seg Neuts % (Manual) Lymphocytes % (Manual) Seg Neutrophils # Lymphocytes # (Manual) INR APTT ABG pH 7.473 H POC ABG pCO2 POC ABG pO2 53.9 L ABG Hemoglobin ABG Oxyhemoglobin 90.0 L ABG Potassium ABG Glucose 127 H Carboxyhemoglobin Sodium 147 H D Potassium Chloride Carbon Dioxide 36 H BUN 33 H Creatinine 1.5 H Glucose 128 H POC Glucose 141 H Calcium 8.3 L Phosphorus Magnesium Lactate Dehydrogenase C-Reactive Protein Albumin Triglycerides Cholesterol LDL Cholesterol Direct Arterial Blood Glucose 127 H Arterial Blood Ionized Calcium 4.5 L Urine Creatinine Urine Total Protein 01/24/21 01/24/21 01/25/21 08:44 11:27 03:57 WBC RBC Hgb Hct MCV MCH MCHC RDW Lymph % (Auto) [place] % (Auto) Lymph # (Auto) Seg Neutrophils % Seg Neuts % (Manual) Lymphocytes % (Manual) Seg Neutrophils # Lymphocytes # (Manual) INR APTT ABG pH 7.515 H POC ABG pCO2 POC ABG pO2 70.5 L ABG Hemoglobin ABG Oxyhemoglobin ABG Potassium ABG Glucose 150 H Carboxyhemoglobin Sodium Potassium Chloride Carbon Dioxide BUN Creatinine Glucose POC Glucose 127 H Calcium Phosphorus 1.40 L D Magnesium 2.90 H Lactate Dehydrogenase C-Reactive Protein Albumin Triglycerides Cholesterol LDL Cholesterol Direct Arterial Blood Glucose 150 H Arterial Blood Ionized Calcium 4.4 L Urine Creatinine Urine Total Protein 01/25/21 01/25/21 01/25/21 04:35 04:35 05:07 WBC RBC Hgb Hct MCV 97 H MCH MCHC RDW 15.3 H Lymph % (Auto) [place] % (Auto) Lymph # (Auto) Seg Neutrophils % Seg Neuts % (Manual) Lymphocytes % (Manual) Seg Neutrophils # Lymphocytes # (Manual) INR APTT ABG pH POC ABG pCO2 POC ABG pO2 ABG Hemoglobin ABG Oxyhemoglobin ABG Potassium ABG Glucose Carboxyhemoglobin Sodium 147 H Potassium 3.5 L D Chloride Carbon Dioxide 37 H BUN 34 H Creatinine Glucose 127 H POC Glucose 117 H Calcium 8.1 L Phosphorus Magnesium Lactate Dehydrogenase C-Reactive Protein Albumin Triglycerides Cholesterol LDL Cholesterol Direct Arterial Blood Glucose Arterial Blood Ionized Calcium Urine Creatinine Urine Total Protein 01/25/21 01/25/21 01/25/21 11:15 12:39 17:37 WBC RBC Hgb Hct MCV MCH MCHC RDW Lymph % (Auto) [place] % (Auto) Lymph # (Auto) Seg Neutrophils % Seg Neuts % (Manual) Lymphocytes % (Manual) Seg Neutrophils # Lymphocytes # (Manual) INR APTT ABG pH POC ABG pCO2 POC ABG pO2 ABG Hemoglobin ABG Oxyhemoglobin ABG Potassium ABG Glucose Carboxyhemoglobin Sodium Potassium Chloride Carbon Dioxide BUN Creatinine Glucose POC Glucose 147 H 143 H 142 H Calcium Phosphorus Magnesium Lactate Dehydrogenase C-Reactive Protein Albumin Triglycerides Cholesterol LDL Cholesterol Direct Arterial Blood Glucose Arterial Blood Ionized Calcium Urine Creatinine Urine Total Protein 01/25/21 01/26/21 01/26/21 23:08 03:44 04:30 WBC RBC Hgb Hct MCV MCH MCHC RDW Lymph % (Auto) [place] % (Auto) Lymph # (Auto) Seg Neutrophils % Seg Neuts % (Manual) Lymphocytes % (Manual) Seg Neutrophils # Lymphocytes # (Manual) INR APTT ABG pH POC ABG pCO2 49.5 H POC ABG pO2 ABG Hemoglobin ABG Oxyhemoglobin ABG Potassium ABG Glucose 153 H Carboxyhemoglobin Sodium 149 H Potassium Chloride Carbon Dioxide 39 H BUN 35 H Creatinine Glucose 141 H POC Glucose 139 H Calcium 8.3 L Phosphorus Magnesium Lactate Dehydrogenase C-Reactive Protein Albumin Triglycerides Cholesterol LDL Cholesterol Direct Arterial Blood Glucose 153 H Arterial Blood Ionized Calcium 4.5 L Urine Creatinine Urine Total Protein 01/26/21 01/26/21 01/26/21 05:31 11:35 12:11 WBC RBC Hgb Hct MCV MCH MCHC RDW Lymph % (Auto) [place] % (Auto) Lymph # (Auto) Seg Neutrophils % Seg Neuts % (Manual) Lymphocytes % (Manual) Seg Neutrophils # Lymphocytes # (Manual) INR APTT ABG pH POC ABG pCO2 POC ABG pO2 ABG Hemoglobin ABG Oxyhemoglobin ABG Potassium ABG Glucose Carboxyhemoglobin Sodium Potassium Chloride Carbon Dioxide BUN Creatinine Glucose POC Glucose 143 H 145 H 161 H Calcium Phosphorus Magnesium Lactate Dehydrogenase C-Reactive Protein Albumin Triglycerides Cholesterol LDL Cholesterol Direct Arterial Blood Glucose Arterial Blood Ionized Calcium Urine Creatinine Urine Total Protein 01/26/21 01/26/21 01/26/21 12:12 18:01 23:22 WBC RBC Hgb Hct MCV MCH MCHC RDW Lymph % (Auto) [place] % (Auto) Lymph # (Auto) Seg Neutrophils % Seg Neuts % (Manual) Lymphocytes % (Manual) Seg Neutrophils # Lymphocytes # (Manual) INR APTT ABG pH POC ABG pCO2 POC ABG pO2 ABG Hemoglobin ABG Oxyhemoglobin ABG Potassium ABG Glucose Carboxyhemoglobin Sodium Potassium Chloride Carbon Dioxide BUN Creatinine Glucose POC Glucose 163 H 151 H 143 H Calcium Phosphorus Magnesium Lactate Dehydrogenase C-Reactive Protein Albumin Triglycerides Cholesterol LDL Cholesterol Direct Arterial Blood Glucose Arterial Blood Ionized Calcium Urine Creatinine Urine Total Protein 01/27/21 01/27/21 01/27/21 04:00 05:24 06:43 WBC RBC 3.45 L Hgb 11.1 L Hct 34.4 L MCV 100 H MCH MCHC RDW Lymph % (Auto) [place] % (Auto) Lymph # (Auto) Seg Neutrophils % Seg Neuts % (Manual) Lymphocytes % (Manual) Seg Neutrophils # Lymphocytes # (Manual) INR APTT ABG pH POC ABG pCO2 59.3 H POC ABG pO2 73.4 L ABG Hemoglobin ABG Oxyhemoglobin 93.2 L ABG Potassium ABG Glucose 178 H Carboxyhemoglobin Sodium Potassium Chloride Carbon Dioxide BUN Creatinine Glucose POC Glucose 152 H Calcium Phosphorus Magnesium Lactate Dehydrogenase C-Reactive Protein Albumin Triglycerides Cholesterol LDL Cholesterol Direct Arterial Blood Glucose 178 H Arterial Blood Ionized Calcium 4.4 L Urine Creatinine Urine Total Protein 01/27/21 01/27/21 01/27/21 06:43 11:35 16:39 WBC RBC Hgb Hct MCV MCH MCHC RDW Lymph % (Auto) [place] % (Auto) Lymph # (Auto) Seg Neutrophils % Seg Neuts % (Manual) Lymphocytes % (Manual) Seg Neutrophils # Lymphocytes # (Manual) INR APTT ABG pH POC ABG pCO2 POC ABG pO2 ABG Hemoglobin ABG Oxyhemoglobin ABG Potassium ABG Glucose Carboxyhemoglobin Sodium 148 H Potassium Chloride Carbon Dioxide 40 H BUN 40 H Creatinine Glucose 166 H POC Glucose 146 H 168 H Calcium Phosphorus Magnesium Lactate Dehydrogenase C-Reactive Protein Albumin Triglycerides Cholesterol LDL Cholesterol Direct Arterial Blood Glucose Arterial Blood Ionized Calcium Urine Creatinine Urine Total Protein 01/27/21 01/28/21 01/28/21 23:14 03:29 04:51 WBC RBC Hgb Hct MCV MCH MCHC RDW Lymph % (Auto) [place] % (Auto) Lymph # (Auto) Seg Neutrophils % Seg Neuts % (Manual) Lymphocytes % (Manual) Seg Neutrophils # Lymphocytes # (Manual) INR APTT ABG pH POC ABG pCO2 57.3 H POC ABG pO2 67.1 L ABG Hemoglobin 11.8 L ABG Oxyhemoglobin 91.5 L ABG Potassium ABG Glucose 172 H Carboxyhemoglobin Sodium Potassium Chloride Carbon Dioxide BUN Creatinine Glucose POC Glucose 140 H 166 H Calcium Phosphorus Magnesium Lactate Dehydrogenase C-Reactive Protein Albumin Triglycerides Cholesterol LDL Cholesterol Direct Arterial Blood Glucose 172 H Arterial Blood Ionized Calcium 4.4 L Urine Creatinine Urine Total Protein 01/28/21 01/28/21 01/28/21 05:51 05:51 10:01 WBC RBC 3.39 L Hgb 11.1 L Hct 33.9 L MCV 100 H MCH 33 H MCHC RDW Lymph % (Auto) [place] % (Auto) Lymph # (Auto) Seg Neutrophils % Seg Neuts % (Manual) Lymphocytes % (Manual) Seg Neutrophils # Lymphocytes # (Manual) INR APTT 42.8 H ABG pH POC ABG pCO2 POC ABG pO2 ABG Hemoglobin ABG Oxyhemoglobin ABG Potassium ABG Glucose Carboxyhemoglobin Sodium Potassium Chloride Carbon Dioxide 36 H BUN 46 H Creatinine 1.4 H Glucose 157 H POC Glucose Calcium Phosphorus Magnesium Lactate Dehydrogenase C-Reactive Protein Albumin Triglycerides Cholesterol LDL Cholesterol Direct Arterial Blood Glucose Arterial Blood Ionized Calcium Urine Creatinine Urine Total Protein 01/28/21 01/28/21 01/28/21 10:01 11:14 17:36 WBC RBC Hgb Hct MCV MCH MCHC RDW Lymph % (Auto) [place] % (Auto) Lymph # (Auto) Seg Neutrophils % Seg Neuts % (Manual) Lymphocytes % (Manual) Seg Neutrophils # Lymphocytes # (Manual) INR APTT ABG pH POC ABG pCO2 POC ABG pO2 ABG Hemoglobin ABG Oxyhemoglobin ABG Potassium ABG Glucose Carboxyhemoglobin Sodium Potassium Chloride Carbon Dioxide BUN Creatinine 1.4 H Glucose POC Glucose 157 H 127 H Calcium Phosphorus Magnesium Lactate Dehydrogenase C-Reactive Protein Albumin Triglycerides Cholesterol LDL Cholesterol Direct Arterial Blood Glucose Arterial Blood Ionized Calcium Urine Creatinine Urine Total Protein 01/28/21 01/29/21 01/29/21 23:18 02:52 04:53 WBC RBC Hgb Hct MCV MCH MCHC RDW Lymph % (Auto) [place] % (Auto) Lymph # (Auto) Seg Neutrophils % Seg Neuts % (Manual) Lymphocytes % (Manual) Seg Neutrophils # Lymphocytes # (Manual) INR APTT ABG pH POC ABG pCO2 72.6 H POC ABG pO2 58.0 L ABG Hemoglobin 11.6 L ABG Oxyhemoglobin 86.5 L ABG Potassium ABG Glucose 179 H Carboxyhemoglobin Sodium Potassium Chloride Carbon Dioxide BUN Creatinine Glucose POC Glucose 146 H 146 H Calcium Phosphorus Magnesium Lactate Dehydrogenase C-Reactive Protein Albumin Triglycerides Cholesterol LDL Cholesterol Direct Arterial Blood Glucose 179 H Arterial Blood Ionized Calcium 4.4 L Urine Creatinine Urine Total Protein 01/29/21 01/29/21 01/29/21 07:03 07:03 11:14 WBC RBC 3.29 L Hgb 10.6 L Hct 32.4 L MCV 99 H MCH MCHC RDW Lymph % (Auto) [place] % (Auto) Lymph # (Auto) Seg Neutrophils % Seg Neuts % (Manual) Lymphocytes % (Manual) Seg Neutrophils # Lymphocytes # (Manual) INR APTT ABG pH POC ABG pCO2 POC ABG pO2 ABG Hemoglobin ABG Oxyhemoglobin ABG Potassium ABG Glucose Carboxyhemoglobin Sodium Potassium Chloride 97.6 L Carbon Dioxide 36 H BUN 63 H Creatinine 1.8 H Glucose 180 H POC Glucose 162 H Calcium Phosphorus Magnesium Lactate Dehydrogenase C-Reactive Protein Albumin Triglycerides 157 H Cholesterol LDL Cholesterol Direct Arterial Blood Glucose Arterial Blood Ionized Calcium Urine Creatinine Urine Total Protein 01/29/21 01/29/21 01/29/21 14:13 14:37 17:54 WBC RBC Hgb 10.5 L Hct 32.7 L MCV MCH MCHC RDW Lymph % (Auto) [place] % (Auto) Lymph # (Auto) Seg Neutrophils % Seg Neuts % (Manual) Lymphocytes % (Manual) Seg Neutrophils # Lymphocytes # (Manual) INR APTT ABG pH POC ABG pCO2 66.4 H POC ABG pO2 ABG Hemoglobin 11.3 L ABG Oxyhemoglobin ABG Potassium ABG Glucose 174 H Carboxyhemoglobin 0.3 L Sodium Potassium Chloride Carbon Dioxide BUN Creatinine Glucose POC Glucose 148 H Calcium Phosphorus Magnesium Lactate Dehydrogenase C-Reactive Protein Albumin Triglycerides Cholesterol LDL Cholesterol Direct Arterial Blood Glucose 174 H Arterial Blood Ionized Calcium 4.4 L Urine Creatinine Urine Total Protein 01/29/21 01/30/21 01/30/21 22:48 00:24 03:14 WBC RBC Hgb 10.2 L Hct 31.1 L MCV MCH MCHC RDW Lymph % (Auto) [place] % (Auto) Lymph # (Auto) Seg Neutrophils % Seg Neuts % (Manual) Lymphocytes % (Manual) Seg Neutrophils # Lymphocytes # (Manual) INR APTT ABG pH POC ABG pCO2 56.1 H POC ABG pO2 ABG Hemoglobin 11.0 L ABG Oxyhemoglobin ABG Potassium ABG Glucose 120 H Carboxyhemoglobin 0.3 L Sodium Potassium Chloride Carbon Dioxide BUN Creatinine Glucose POC Glucose 133 H Calcium Phosphorus Magnesium Lactate Dehydrogenase C-Reactive Protein Albumin Triglycerides Cholesterol LDL Cholesterol Direct Arterial Blood Glucose 120 H Arterial Blood Ionized Calcium 4.5 L Urine Creatinine Urine Total Protein 01/30/21 01/30/21 01/30/21 05:32 07:20 07:20 WBC 11.6 H RBC 3.27 L Hgb 10.1 L Hct 32.1 L MCV 98 H MCH MCHC 31 L RDW Lymph % (Auto) 3.9 L [place] % (Auto) Lymph # (Auto) 0.5 L Seg Neutrophils % 88.8 H Seg Neuts % (Manual) Lymphocytes % (Manual) Seg Neutrophils # 10.3 H Lymphocytes # (Manual) INR APTT ABG pH POC ABG pCO2 POC ABG pO2 ABG Hemoglobin ABG Oxyhemoglobin ABG Potassium ABG Glucose Carboxyhemoglobin Sodium 147 H Potassium Chloride Carbon Dioxide 36 H BUN 89 H Creatinine 2.8 H D Glucose 126 H POC Glucose 115 H Calcium Phosphorus Magnesium Lactate Dehydrogenase C-Reactive Protein Albumin Triglycerides Cholesterol LDL Cholesterol Direct Arterial Blood Glucose Arterial Blood Ionized Calcium Urine Creatinine Urine Total Protein 01/30/21 01/30/21 01/30/21 11:33 15:35 15:38 WBC RBC Hgb 10.2 L Hct 31.7 L MCV MCH MCHC RDW Lymph % (Auto) [place] % (Auto) Lymph # (Auto) Seg Neutrophils % Seg Neuts % (Manual) Lymphocytes % (Manual) Seg Neutrophils # Lymphocytes # (Manual) INR APTT ABG pH POC ABG pCO2 56.7 H POC ABG pO2 67.7 L ABG Hemoglobin 10.7 L ABG Oxyhemoglobin 91.0 L ABG Potassium 4.6 H ABG Glucose 152 H Carboxyhemoglobin Sodium Potassium Chloride Carbon Dioxide BUN Creatinine Glucose POC Glucose 143 H Calcium Phosphorus Magnesium Lactate Dehydrogenase C-Reactive Protein Albumin Triglycerides Cholesterol LDL Cholesterol Direct Arterial Blood Glucose 152 H Arterial Blood Ionized Calcium 4.4 L Urine Creatinine Urine Total Protein 01/30/21 01/30/21 01/30/21 16:26 23:10 23:32 WBC RBC Hgb 9.9 L Hct 29.5 L MCV MCH MCHC RDW Lymph % (Auto) [place] % (Auto) Lymph # (Auto) Seg Neutrophils % Seg Neuts % (Manual) Lymphocytes % (Manual) Seg Neutrophils # Lymphocytes # (Manual) INR APTT ABG pH POC ABG pCO2 POC ABG pO2 ABG Hemoglobin ABG Oxyhemoglobin ABG Potassium ABG Glucose Carboxyhemoglobin Sodium Potassium Chloride Carbon Dioxide BUN Creatinine Glucose POC Glucose 146 H 143 H Calcium Phosphorus Magnesium Lactate Dehydrogenase C-Reactive Protein Albumin Triglycerides Cholesterol LDL Cholesterol Direct Arterial Blood Glucose Arterial Blood Ionized Calcium Urine Creatinine Urine Total Protein 01/30/21 01/31/21 01/31/21 Unknown 05:00 05:45 WBC RBC Hgb Hct MCV MCH MCHC RDW Lymph % (Auto) [place] % (Auto) Lymph # (Auto) Seg Neutrophils % Seg Neuts % (Manual) Lymphocytes % (Manual) Seg Neutrophils # Lymphocytes # (Manual) INR APTT ABG pH POC ABG pCO2 55.0 H POC ABG pO2 73.2 L ABG Hemoglobin 10.6 L ABG Oxyhemoglobin 92.6 L ABG Potassium 4.7 H ABG Glucose 155 H Carboxyhemoglobin Sodium 146 H Potassium Chloride Carbon Dioxide 36 H BUN 118 H Creatinine 5.2 H D Glucose 146 H POC Glucose Calcium 8.1 L Phosphorus Magnesium Lactate Dehydrogenase C-Reactive Protein Albumin Triglycerides Cholesterol LDL Cholesterol Direct Arterial Blood Glucose 155 H Arterial Blood Ionized Calcium 4.2 L Urine Creatinine 132.3 H Urine Total Protein 504 H 01/31/21 01/31/21 01/31/21 05:57 11:18 17:25 WBC RBC Hgb Hct MCV MCH MCHC RDW Lymph % (Auto) [place] % (Auto) Lymph # (Auto) Seg Neutrophils % Seg Neuts % (Manual) Lymphocytes % (Manual) Seg Neutrophils # Lymphocytes # (Manual) INR APTT ABG pH POC ABG pCO2 POC ABG pO2 ABG Hemoglobin ABG Oxyhemoglobin ABG Potassium ABG Glucose Carboxyhemoglobin Sodium Potassium Chloride Carbon Dioxide BUN Creatinine Glucose POC Glucose 138 H 131 H 138 H Calcium Phosphorus Magnesium Lactate Dehydrogenase C-Reactive Protein Albumin Triglycerides Cholesterol LDL Cholesterol Direct Arterial Blood Glucose Arterial Blood Ionized Calcium Urine Creatinine Urine Total Protein 01/31/21 02/01/21 02/01/21 23:07 03:44 05:16 WBC RBC Hgb Hct MCV MCH MCHC RDW Lymph % (Auto) [place] % (Auto) Lymph # (Auto) Seg Neutrophils % Seg Neuts % (Manual) Lymphocytes % (Manual) Seg Neutrophils # Lymphocytes # (Manual) INR APTT ABG pH 7.292 L POC ABG pCO2 61.1 H POC ABG pO2 ABG Hemoglobin 9.7 L ABG Oxyhemoglobin ABG Potassium 5.4 H ABG Glucose 145 H Carboxyhemoglobin Sodium Potassium Chloride Carbon Dioxide BUN Creatinine Glucose POC Glucose 124 H 130 H Calcium Phosphorus Magnesium Lactate Dehydrogenase C-Reactive Protein Albumin Triglycerides Cholesterol LDL Cholesterol Direct Arterial Blood Glucose 145 H Arterial Blood Ionized Calcium 4.1 L Urine Creatinine Urine Total Protein 02/01/21 02/01/21 02/01/21 07:15 07:15 11:45 WBC 14.0 H RBC 2.72 L Hgb 8.9 L Hct 26.3 L MCV 97 H MCH 33 H MCHC RDW Lymph % (Auto) [place] % (Auto) Lymph # (Auto) Seg Neutrophils % Seg Neuts % (Manual) Lymphocytes % (Manual) Seg Neutrophils # Lymphocytes # (Manual) INR APTT ABG pH POC ABG pCO2 POC ABG pO2 ABG Hemoglobin ABG Oxyhemoglobin ABG Potassium ABG Glucose Carboxyhemoglobin Sodium Potassium 5.6 H Chloride Carbon Dioxide 31 H BUN 165 H Creatinine 8.4 H D Glucose 128 H POC Glucose 119 H Calcium 8.3 L Phosphorus Magnesium Lactate Dehydrogenase C-Reactive Protein Albumin Triglycerides Cholesterol LDL Cholesterol Direct Arterial Blood Glucose Arterial Blood Ionized Calcium Urine Creatinine Urine Total Protein Allied health notes reviewed: nursing
--- NOTE | 2021-02-01 16:17 | Progress Note ---
Assessment and Plan This is a 65-year-old male with atrial fibrillation on Eliquis, hypertension, and diabetes who is admitted with suspected pneumonia, acute hypoxic respiratory failure, COVID-19 PUI, CVA and with hypertensive urgency Acute hypoxic respiratory failure Remote Right MCA CVA Shock/hypotension Seizure disorder Right middle and lower lobe pneumonia Acute metabolic encephalopathy Hypertensive urgency Type 2 diabetes Atrial fibrillation Hypernatremia Acute GI bleed B[place]LEY, likely ATN Hyperkalemia -CCM, cardiology, neurology consulted, appreciate recommendations -01/20 CT head shows a well-defined area of decreased attenuation in the right parietal lobe, limited imagery secondary to artifact. MRI brain recommended for further work-up -01/20 CT chest shows possible mild inflammatory process in the right middle and right lower lobe -01/20 MRI brain pending -01/23 CT head shows no acute focal parenchymal lesion in the brain, no change to right middle frontal gyrus chronic ischemia -01/23/21 2d echo showed EF 50-55% -01/23 CXR shows right infrahilar opacity consistent with large areas of atelectasis of the right middle or lower lobe. 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 -01/26 CT head shows remote right MCA - EEG pending, MRI brain pending -Intubated 01/23 -VAP bundle, wean mechanical ventilation as tolerated -s/p IV antibiotics -Aspirin, Lipitor -Sedated with propofol -s/p vasopressor support with Levophed -Hold antihypertensive regimen and setting of needing vasopressor support, resume as tolerated -Neurochecks per protocol -Accu-Cheks every 6, SSI -Seizure precautions -Tube feedings -Trend BMP, CBC DVT/GI prophylaxis: Heparin subcu, PPIm SCDs to BLE while in bed Disposition: ICU The high probability of a clinically significant, sudden or life threatening deterioration of the [Respiratory, neuro, metabolic, infectious,] system(s) required my full and direct attention, intervention and personal management. The aggregate critical care time was [34] minutes. This time is in addition to time spent performing reported procedures but includes the following: [x] Data Review and interpretation [x] Patient assessment and monitoring of vital signs [x] Documentation [x] Medication orders and management Brief history: This is a 65-year-old male with atrial fibrillation on Eliquis, hypertension, and diabetes who presents to the emergency on 01/20 with complaints of progressive generalized weakness, gait unsteadiness, cough and fever. Upon EMS arrival patient was febrile with a temperature of 102 and hypoxic with SPO2 in the 70s on room air. Work-up in the emergency department included a CT scan of his chest which showed possible mild inflammatory process in his right middle and lower lobe, CT head was admitted secondary to artifact but noted a low- density area in the right parietal lobe. Patient was admitted to the hospitalist service with suspected pneumonia, acute hypoxic respiratory failure, COVID-19 PUI, rule out CVA and with hypertensive urgency. Neurology was consulted. repeat CT head on 01/28/21 showed remote right MCA infarction.. Daily clinical course: 01/22/2021; neuro work-up is in progress, follow PT OT eval. Neurology consult, continue antibiotics and supportive care 01/23/2021; patient went into acute respiratory failure requiring intubation and ventilatory support. Patient is transferred to ICU, pulmonary critical consulted, hypotensive started on Levophed. Pulmonary critical, cardiology and neurology following the patient. updated by Dr. Cho 01/24: Patient is awaiting further neuro imaging and is restrained the time my examination. Patient is not sedated and on assist control tidal volume 500, rate of 24, PEEP of 8 on FiO2 70%. Patient is severely agitated and is started on propofol drip per [facility]. He has hypophosphatemia today which was repleted. We will repeat BMP and phosphate level in the a.m. 01/25: Patient has hypokalemia today which was repleted today. Cr decreased to 1.2 from 1.5. Hypophosphatemia is resolved. Awaiting MRI brain. Sedated with propofol and on AC TV 500, R 20, PEEP 10, on FiO2 80%. Levophed was off at the time of my examination. Awaiting MRI . 01/26: The time my examination patient is sedated on propofol and this morning he has worsening hypernatremia and creatinine. The time examination patient is on assist control tidal volume 500, rate of 16, PEEP of 10 and 80% FiO2. Patient will follow commands with sedation vacation. Neurology ordered a repeat CT head bleed to assess if patient can be restarted on p.o. anticoagulation. We will increase the water flushes. 01/27: CTH obtained yesterday shows evidence of remote right MCA infarct. Patient remains sedated with Propofol and on MV AC TV 500, R 16, PEEP 10 and FiO2 80%. Bowel regimen started, will continue to trend CBC/BMP. 01/28 Patient with acute respiratory failure, afib, hypertension. Remote right MCA stroke seen on CT Head done on 01/26. Neurology following. Completed Rocephin and Zithromax for pneumonia 01/29: Noted coffee-ground discharges from [facility] today, hold any heparin product and aspirin. Started on Protonix drip. Monitor H&H every 8 hours consulted GI. Hold tube feeding for now. 01/30: Noted to have recurrent nose bleed from left nostrils. discussed with RN to apply epinephrine spray and nasal packing. Continue to monitor H&H. Continue PPI. Creatinine trending up consulted nephrology, also started on half-normal saline. Monitor BMP. GI recommended conservative management. Continue to follow. 01/31: Renal function cont to decline with elevated Cr/BUN. Placed vascath, planned to HD. updated family by dr Clark. Patient remains mechanical ventilation. 02/01: Patient require urgent hemodialysis due to significant decline in the renal function, oliguria and hyperkalemia. But unable to reach out to family. HD will be initiated for medical necessity. Subjective Date of service: 02/01/21 Principal diagnosis: CVA Interval history: Patient seen and examined. Medical records and medication list reviewed. No acute event overnight noted by the RN. Patient on MV, Renal function declining Discussed plan of care at bedside with patient's RN. Objective - Exam Narrative Exam: - Physical exam Narrative exam: General appearance: Present: no acute distress, obese, other (sedated on mechanical ventilation) - EENT Eyes: Present: PERRL ENT: clear oral mucosa, noted bloody discharge from left nostril - Neck Neck: Present: normal ROM - Respiratory Respiratory effort: normal Respiratory: bilateral: diminished - Cardiovascular Rhythm: regular Heart Sounds: Present: S1 & S2. Absent: systolic murmur, diastolic murmur - Extremities Extremities: no ischemia, pulses intact, pulses symmetrical, No edema, normal temperature, normal color Peripheral Pulses: within normal limits - Abdominal General gastrointestinal: soft, non-tender, non-distended, normal bowel sounds - Integumentary Integumentary: Present: warm, dry - Psychiatric Psychiatric: cooperative, agitated - Neurologic Neurologic: moves all extremities - Allied Health Allied health notes reviewed: nursing, RT - Constitutional Vitals: Vital Signs - 12hr 02/01/21 02/01/21 02/01/21 04:16 04:30 04:46 Temperature Pulse Rate 82 88 85 Pulse Rate [ From Monitor] Respiratory 16 15 15 Rate Blood Pressure 113/67 113/67 113/67 O2 Sat by Pulse 97 95 96 Oximetry O2 Sat by Pulse Oximetry [ Anterior Bilateral Throughout] 02/01/21 02/01/21 02/01/21 05:00 05:16 05:30 Temperature Pulse Rate 94 H 77 90 Pulse Rate [ From Monitor] Respiratory 16 20 13 Rate Blood Pressure 113/67 113/67 113/67 O2 Sat by Pulse 97 95 96 Oximetry O2 Sat by Pulse Oximetry [ Anterior Bilateral Throughout] 02/01/21 02/01/21 02/01/21 05:46 06:00 06:16 Temperature Pulse Rate 78 90 65 Pulse Rate [ From Monitor] Respiratory 20 13 20 Rate Blood Pressure 113/67 113/67 113/67 O2 Sat by Pulse 94 94 95 Oximetry O2 Sat by Pulse Oximetry [ Anterior Bilateral Throughout] 02/01/21 02/01/21 02/01/21 06:30 06:46 07:00 Temperature 102.2 F H Pulse Rate 90 83 90 Pulse Rate [ From Monitor] Respiratory 20 17 21 Rate Blood Pressure 113/67 113/67 113/67 O2 Sat by Pulse 92 94 93 Oximetry O2 Sat by Pulse Oximetry [ Anterior Bilateral Throughout] 02/01/21 02/01/21 02/01/21 07:16 07:30 07:41 Temperature Pulse Rate 97 H 93 H 82 Pulse Rate [ From Monitor] Respiratory 12 19 Rate Blood Pressure 113/67 113/67 113/67 O2 Sat by Pulse 94 94 94 Oximetry O2 Sat by Pulse Oximetry [ Anterior Bilateral Throughout] 02/01/21 02/01/21 02/01/21 07:46 08:00 08:16 Temperature Pulse Rate 99 H 90 78 Pulse Rate [ 93 H From Monitor] Respiratory 15 20 20 Rate Blood Pressure 113/67 113/67 113/67 O2 Sat by Pulse 93 91 91 Oximetry O2 Sat by Pulse Oximetry [ Anterior Bilateral Throughout] 02/01/21 02/01/21 02/01/21 08:30 08:46 09:00 Temperature Pulse Rate 81 75 97 H Pulse Rate [ From Monitor] Respiratory 17 20 11 L Rate Blood Pressure 113/67 113/67 113/67 O2 Sat by Pulse 91 93 91 Oximetry O2 Sat by Pulse Oximetry [ Anterior Bilateral Throughout] 02/01/21 02/01/21 02/01/21 09:16 09:30 09:46 Temperature Pulse Rate 91 H 84 90 Pulse Rate [ From Monitor] Respiratory 20 15 20 Rate Blood Pressure 113/67 113/67 113/67 O2 Sat by Pulse 92 89 92 Oximetry O2 Sat by Pulse Oximetry [ Anterior Bilateral Throughout] 02/01/21 02/01/21 02/01/21 10:00 10:16 10:30 Temperature Pulse Rate 86 96 H 84 Pulse Rate [ From Monitor] Respiratory 20 22 15 Rate Blood Pressure 113/67 113/67 113/67 O2 Sat by Pulse 88 88 89 Oximetry O2 Sat by Pulse Oximetry [ Anterior Bilateral Throughout] 02/01/21 02/01/21 02/01/21 10:46 11:00 11:06 Temperature Pulse Rate 93 H 86 80 Pulse Rate [ From Monitor] Respiratory 19 21 Rate Blood Pressure 113/67 113/67 O2 Sat by Pulse 87 96 96 Oximetry O2 Sat by Pulse Oximetry [ Anterior Bilateral Throughout] 02/01/21 02/01/21 02/01/21 11:16 11:30 11:46 Temperature Pulse Rate 80 87 Pulse Rate [ From Monitor] Respiratory 23 18 Rate Blood Pressure 113/67 113/67 113/67 O2 Sat by Pulse 97 96 96 Oximetry O2 Sat by Pulse Oximetry [ Anterior Bilateral Throughout] 02/01/21 02/01/21 02/01/21 12:00 12:15 12:25 Temperature 101.6 F H 101.6 F H Pulse Rate 98 H 87 87 Pulse Rate [ From Monitor] Respiratory 21 14 Rate Blood Pressure 113/67 110/65 110/65 O2 Sat by Pulse 96 94 Oximetry O2 Sat by Pulse 93 Oximetry [ Anterior Bilateral Throughout] 02/01/21 02/01/21 02/01/21 12:30 12:45 13:00 Temperature Pulse Rate 93 H 87 85 Pulse Rate [ From Monitor] Respiratory Rate Blood Pressure 112/65 108/70 112/59 O2 Sat by Pulse Oximetry O2 Sat by Pulse Oximetry [ Anterior Bilateral Throughout] 02/01/21 02/01/21 02/01/21 13:15 13:30 13:45 Temperature Pulse Rate 95 H 86 84 Pulse Rate [ From Monitor] Respiratory Rate Blood Pressure 104/62 94/58 95/58 O2 Sat by Pulse Oximetry O2 Sat by Pulse Oximetry [ Anterior Bilateral Throughout] 02/01/21 02/01/21 02/01/21 14:00 14:15 14:30 Temperature Pulse Rate 85 88 85 Pulse Rate [ From Monitor] Respiratory Rate Blood Pressure 88/54 115/77 102/63 O2 Sat by Pulse Oximetry O2 Sat by Pulse Oximetry [ Anterior Bilateral Throughout] 02/01/21 02/01/21 02/01/21 14:45 15:00 15:10 Temperature Pulse Rate 84 86 89 Pulse Rate [ From Monitor] Respiratory Rate Blood Pressure 85/58 116/69 87/53 O2 Sat by Pulse 97 Oximetry O2 Sat by Pulse Oximetry [ Anterior Bilateral Throughout] 02/01/21 02/01/21 02/01/21 15:15 15:30 15:45 Temperature 101.6 F H Pulse Rate 105 H 95 H 93 H Pulse Rate [ From Monitor] Respiratory 20 Rate Blood Pressure 90/56 109/64 108/57 O2 Sat by Pulse Oximetry O2 Sat by Pulse 93 Oximetry [ Anterior Bilateral Throughout] - Labs CBC & Chem 7: 02/02/21 04:40 02/02/21 04:40 Labs: Abnormal lab results 01/31/21 01/31/21 02/01/21 Range/Units 17:25 23:07 03:44 WBC (4.5-11.0) K/mm3 RBC (3.65-5.03) M/mm3 Hgb (11.8-15.2) gm/dl Hct (35.5-45.6) % MCV (84-94) fl MCH (28-32) pg ABG pH 7.292 L (7.320-7.450) POC ABG pCO2 61.1 H (32.0-48.0) mmHg ABG Hemoglobin 9.7 L (12.0-17.5) ABG Potassium 5.4 H (3.40-4.50) mmol/L ABG Glucose 145 H (65-95) mg/dL Potassium (3.6-5.0) mmol/L Carbon Dioxide (22-30) mmol/L BUN (9-20) mg/dL Creatinine (0.8-1.3) mg/dL Glucose (75-100) mg/dL POC Glucose 138 H 124 H (70-105) mg/dL Calcium (8.4-10.2) mg/dL Arterial Blood Glucose 145 H (65-95) mg/dL Arterial Blood Ionized Calcium 4.1 L (4.6-5.3) mg/dL 02/01/21 02/01/21 02/01/21 Range/Units 05:16 07:15 07:15 WBC 14.0 H (4.5-11.0) K/mm3 RBC 2.72 L (3.65-5.03) M/mm3 Hgb 8.9 L (11.8-15.2) gm/dl Hct 26.3 L (35.5-45.6) % MCV 97 H (84-94) fl MCH 33 H (28-32) pg ABG pH (7.320-7.450) POC ABG pCO2 (32.0-48.0) mmHg ABG Hemoglobin (12.0-17.5) ABG Potassium (3.40-4.50) mmol/L ABG Glucose (65-95) mg/dL Potassium 5.6 H (3.6-5.0) mmol/L Carbon Dioxide 31 H (22-30) mmol/L BUN 165 H (9-20) mg/dL Creatinine 8.4 H D (0.8-1.3) mg/dL Glucose 128 H (75-100) mg/dL POC Glucose 130 H (70-105) mg/dL Calcium 8.3 L (8.4-10.2) mg/dL Arterial Blood Glucose (65-95) mg/dL Arterial Blood Ionized Calcium (4.6-5.3) mg/dL 02/01/21 Range/Units 11:45 WBC (4.5-11.0) K/mm3 RBC (3.65-5.03) M/mm3 Hgb (11.8-15.2) gm/dl Hct (35.5-45.6) % MCV (84-94) fl MCH (28-32) pg ABG pH (7.320-7.450) POC ABG pCO2 (32.0-48.0) mmHg ABG Hemoglobin (12.0-17.5) ABG Potassium (3.40-4.50) mmol/L ABG Glucose (65-95) mg/dL Potassium (3.6-5.0) mmol/L Carbon Dioxide (22-30) mmol/L BUN (9-20) mg/dL Creatinine (0.8-1.3) mg/dL Glucose (75-100) mg/dL POC Glucose 119 H (70-105) mg/dL Calcium (8.4-10.2) mg/dL Arterial Blood Glucose (65-95) mg/dL Arterial Blood Ionized Calcium (4.6-5.3) mg/dL HEART Score - HEART Score Troponin: Troponin T < 0.010 ng/mL (0.00-0.029) 01/20/21 19:26
--- NOTE | 2021-02-01 16:45 | Progress Note ---
Assessment and Plan Echo reviewed - mild LVH, EF 50-55%, mod pulm HTN w/RVSP 53 mmHg, mod RA enlargement, mild RV enlargement with TR, negative Bubble study. Volume optimization via HD per Primary/Nephro. Remains in AF on tele, rate is well controlled. Resume Eliquis when no further evidence of bleeding and H/H remains stable. Nothing further to add from a Cardiology perspective at this time. Will see peripherally over the weekend. Pt seen in conjunction with Dr. Brooke Arndt, who agrees with the assessment and plan of care. - Patient Problems (1) Acute CVA (cerebrovascular accident) Current Visit: Yes Status: Suspected (2) Acute respiratory failure Current Visit: Yes Status: Acute (3) Sepsis Current Visit: Yes Status: Acute (4) Pneumonia Current Visit: Yes Status: Acute (5) B[place] (acute kidney injury) Current Visit: Yes Status: Acute (6) Anemia Current Visit: Yes Status: Acute (7) Epistaxis Current Visit: Yes Status: Acute (8) GI bleed Current Visit: Yes Status: Acute (9) Atrial fibrillation Current Visit: Yes Status: Acute Qualifiers: Atrial fibrillation type: persistent (not longstanding) Qualified Code(s): I48.19 - Other persistent atrial fibrillation; I48.1 - Persistent atrial fibrillation (10) Pulmonary HTN Current Visit: Yes Status: Chronic (11) HTN (hypertension) Current Visit: No Status: Chronic Qualifiers: Hypertension type: essential hypertension Qualified Code(s): I10 - Essential (primary) hypertension (12) DM2 (diabetes mellitus, type 2) Current Visit: Yes Status: Chronic (13) Seizure Current Visit: Yes Status: Chronic Subjective Date of service: 02/01/21 Principal diagnosis: CVA Interval history: Remains intubated. Now requiring HD. Tele reviewed - AF 80-90s, no events overnight. Objective Last Vital Signs Temp 101.6 F H 02/01/21 15:45 Pulse 93 H 02/01/21 15:45 Resp 20 02/01/21 15:45 BP 108/57 02/01/21 15:45 Pulse Ox 93 02/01/21 15:45 - Physical Examination General: Other (intubated) HEENT: Positive: Normocephaly Neck: Negative: JVD/HJR Cardiac: Positive: irregularly irregular, S1/S2 Lungs: Positive: Other (coarse anteriorly) Neuro: Positive: Other (intubated) Abdomen: Positive: Soft Skin: Negative: Rash Musculoskeletal: No Fluid Collection Extremities: Present: lower extr. pulses. Absent: edema - Labs and Meds CBC 02/01/21 Range/Units 07:15 WBC 14.0 H (4.5-11.0) K/mm3 RBC 2.72 L (3.65-5.03) M/mm3 Hgb 8.9 L (11.8-15.2) gm/dl Hct 26.3 L (35.5-45.6) % Plt Count 258 (140-440) K/mm3 Comprehensive Metabolic Panel 02/01/21 Range/Units 07:15 Sodium 143 (137-145) mmol/L Potassium 5.6 H (3.6-5.0) mmol/L Chloride 98.9 (98-107) mmol/L Carbon Dioxide 31 H (22-30) mmol/L BUN 165 H (9-20) mg/dL Creatinine 8.4 H D (0.8-1.3) mg/dL Glucose 128 H (75-100) mg/dL Calcium 8.3 L (8.4-10.2) mg/dL - Imaging and Cardiology EKG: report reviewed, image reviewed Echo: report reviewed (01/23/2021 - mild LVH, EF 50-55%, mod pulm HTN w/RVSP 53 mmHg, mod RA enlargement, mild RV enlargement with TR) - Telemetry EKG Rhythm: Atrial Fibrillation - EKG Supraventricular dysrhythmia: atrial fibrillation Repolarization changes or abnormalities: nonspecific abnormality, ST segment, and/or T wave - Allied health notes Allied health notes reviewed: nursing
[2021-02-01] MEDS: MEROPENEM/NS 1 GRAM/100 ML 1 GRAM/100 ML BAG IV SCH (17:29)
[2021-02-02 05:29] LABS: Hematocrit 26.5 % (35.5-45.6); Hemoglobin 8.5 gm/dl (11.8-15.2); Mean Corpuscular HGB Conc 32 % (32-34); Mean Corpuscular Volume 100 fl (84-94); Platelet Count 284 K/mm3 (140-440); Red Blood Count 2.65 M/mm3 (3.65-5.03); Red Cell Distribution Width 15.2 % (13.2-15.2)
[2021-02-02 06:00] LABS: Calcium 8.4 mg/dL (8.4-10.2)
[2021-02-02 06:22] LABS: Anisocytosis 1+; Total Cells Counted 100
[2021-02-02 06:23] LABS: Macrocytosis 1+; Platelet Estimate Consistent w Auto
[2021-02-02] MEDS ORDERED: INSULIN REGULAR, HUMAN 100 UNITS/1 ML ONE (06:39)
--- NOTE | 2021-02-02 07:02 | Event Note ---
Date: 02/02/21 IVAN CHAMBERS called on 65-year-old -[place] male who has been on admission for multiple medical problems including acute hypoxic respiratory failure, pneumonia, metabolic encephalopathy. Resuscitative measures were commenced according to ACLS protocol. Patient had 3 rounds of epinephrine, 1 amp of sodium bicarbonate and 1 amp of calcium and chloride. He was later found to be in A. fib with RVR was given a bolus of IV amiodarone there was return of spontaneous circulation. Accu-Cheks done during this resuscitative measure was 100. Patient was adequately suctioned and vitals remained stable. We will follow up on labs and also request incoming hospitalist/survey rodman follow-up.
[2021-02-02] MEDS: DOCUSATE SODIUM 100 MG/10 ML ORAL LIQD FEEDTUBE SCH ×3 (09:12→21:37)
[2021-02-02] MEDS: PANTOPRAZOLE 40 MG INJ IV SCH (09:14)
[2021-02-02] MEDS: INSULIN LISPRO 100 UNIT/ML SUB-Q SCH ×3 (09:14→17:30)
[2021-02-02] MEDS: NORepinephrine/NS 4 MG-250 ML 4 MG/250 ML BAG IV SCH ×4 (09:52→21:35)
[2021-02-02] MEDS: VASOPRESSIN 20 UNIT in SODIUM CHLORIDE 0.9% 100 ML IV SCH (09:54)
--- NOTE | 2021-02-02 10:27 | Progress Note ---
Assessment and Plan Cultures: Blood culture 01/20/2021 no growth so far Urine culture 01/20/2021 no growth so far Sputum culture 01/23/2021 Berta 01/28/2021 blood culture: No growth 01/30/2021 blood culture: No growth 01/30/2021 urine culture: No growth A/P: 65-year-old man past medical history diabetes, hypertension, A. fib presented to the hospital with CVA. #Septic shock: With fevers, white count. Central vs infectious etiology. CXR with bilateral pneumonia. Given probably acute CVA with possible evolution may be central etiology. #S/P CODE BLUE #Acute hypoxic respiratory failure: on the vent. #CVA #BERKLEY: renally dose abx. Nephrology on board. Recs: Continue meropenem, vancomycin Extremely poor prognosis Michael Feliciano MD, FACP [facility] ([facility] O: [phone] F: [phone] Subjective Date of service: 02/02/21 Principal diagnosis: CVA Interval history: Low-grade fevers continue. Remains on the vent. High vent requirements. On pressors. Had CODE BLUE requiring ACLS. Objective - Exam Narrative Exam: Physical Exam: Constitutional: intubated, on the vent Head, Ears, Nose: Normocephalic, atraumatic. External ears, nose normal Eyes: Conjunctivae/corneas clear. No icterus. No ptosis. Neck: intubated Oral: intubated Cardiovascular: S1, S2 + Respiratory: AE fair bilaterally and equal GI: Soft, bowel sounds + Musculoskeletal: No pedal edema, no cyanosis. Skin: No rash or abscess Hem/Lymphatic: No palpable cervical or supraclavicular nodes. No lymphangitis Psych: no agitation Neurological: intubated, on the vent, exam limited - Constitutional Vitals: Vital Signs Temp Pulse Resp BP Pulse Ox 98.3 F 86 25 H 103/58 95 02/02/21 08:00 02/02/21 10:00 02/02/21 10:00 02/02/21 10:02/02/21 09:30 Temperature -Last 24 Hours Temperature 98.3 F Temperature 100.9 F Temperature 98.9 F Temperature 98.7 F Temperature 101.6 F Temperature 101.6 F Temperature 101.6 F - Labs CBC & Chem 7: 02/02/21 04:40 02/02/21 04:40 Labs: Abnormal lab results 02/01/21 02/01/21 02/01/21 Range/Units 11:45 17:25 22:33 WBC (4.5-11.0) K/mm3 RBC (3.65-5.03) M/mm3 Hgb (11.8-15.2) gm/dl Hct (35.5-45.6) % MCV (84-94) fl Seg Neuts % (Manual) (40.0-70.0) % Lymphocytes % (Manual) (13.4-35.0) % Seg Neutrophils # Man (1.8-7.7) K/mm3 Lymphocytes # (Manual) (1.2-5.4) K/mm3 ABG pH (7.320-7.450) POC ABG pCO2 (32.0-48.0) mmHg ABG Hemoglobin (12.0-17.5) ABG Oxyhemoglobin (94-98) ABG Potassium (3.40-4.50) mmol/L ABG Glucose (65-95) mg/dL Potassium (3.6-5.0) mmol/L Chloride (98-107) mmol/L BUN (9-20) mg/dL Creatinine (0.8-1.3) mg/dL Glucose (75-100) mg/dL POC Glucose 119 H 138 H 155 H (70-105) mg/dL Arterial Blood Glucose (65-95) mg/dL Arterial Blood Ionized Calcium (4.6-5.3) mg/dL 02/02/21 02/02/21 02/02/21 Range/Units 04:00 04:40 04:40 WBC 15.3 H (4.5-11.0) K/mm3 RBC 2.65 L (3.65-5.03) M/mm3 Hgb 8.5 L (11.8-15.2) gm/dl Hct 26.5 L (35.5-45.6) % MCV 100 H (84-94) fl Seg Neuts % (Manual) 96.0 H (40.0-70.0) % Lymphocytes % (Manual) 3.0 L (13.4-35.0) % Seg Neutrophils # Man 14.7 H (1.8-7.7) K/mm3 Lymphocytes # (Manual) 0.5 L (1.2-5.4) K/mm3 ABG pH 7.266 L (7.320-7.450) POC ABG pCO2 63.4 H (32.0-48.0) mmHg ABG Hemoglobin 9.3 L (12.0-17.5) ABG Oxyhemoglobin 93.8 L (94-98) ABG Potassium 5.4 H (3.40-4.50) mmol/L ABG Glucose 147 H (65-95) mg/dL Potassium 5.5 H (3.6-5.0) mmol/L Chloride 97.0 L (98-107) mmol/L BUN 122 H (9-20) mg/dL Creatinine 7.6 H (0.8-1.3) mg/dL Glucose 134 H (75-100) mg/dL POC Glucose (70-105) mg/dL Arterial Blood Glucose 147 H (65-95) mg/dL Arterial Blood Ionized Calcium 4.1 L (4.6-5.3) mg/dL 02/02/21 Range/Units 04:40 WBC (4.5-11.0) K/mm3 RBC (3.65-5.03) M/mm3 Hgb (11.8-15.2) gm/dl Hct (35.5-45.6) % MCV (84-94) fl Seg Neuts % (Manual) (40.0-70.0) % Lymphocytes % (Manual) (13.4-35.0) % Seg Neutrophils # Man (1.8-7.7) K/mm3 Lymphocytes # (Manual) (1.2-5.4) K/mm3 ABG pH (7.320-7.450) POC ABG pCO2 (32.0-48.0) mmHg ABG Hemoglobin (12.0-17.5) ABG Oxyhemoglobin (94-98) ABG Potassium (3.40-4.50) mmol/L ABG Glucose (65-95) mg/dL Potassium (3.6-5.0) mmol/L Chloride (98-107) mmol/L BUN (9-20) mg/dL Creatinine (0.8-1.3) mg/dL Glucose (75-100) mg/dL POC Glucose 124 H (70-105) mg/dL Arterial Blood Glucose (65-95) mg/dL Arterial Blood Ionized Calcium (4.6-5.3) mg/dL - Imaging and cardiology Chest x-ray: report reviewed, image reviewed (b/l airspace disease)
[2021-02-02] MEDS ORDERED: HEPARIN 10,000 UNITS/10 ML VIAL IV PRN (11:00)
--- NOTE | 2021-02-02 11:30 | Progress Note ---
Assessment and Plan Obtain repeat ECG. Recommend PRN correction of electrolytes. Pt remains in AFlutter post-arrest with well-controlled rate. No indication for Amio gtt at this time. Would like to resume Eliquis as no further evidence of bleeding noted; however, Hgb is slowly trending down. Will monitor closely. Volume optimization via HD per Primary/Nephro. Pt seen in conjunction with Dr. Pizano, who agrees with the assessment and plan of care. - Patient Problems (1) Cardiac arrest Current Visit: Yes Status: Acute (2) Acute CVA (cerebrovascular accident) Current Visit: Yes Status: Acute (3) Acute respiratory failure Current Visit: Yes Status: Acute (4) Sepsis Current Visit: Yes Status: Acute (5) Pneumonia Current Visit: Yes Status: Acute (6) BERKLEY (acute kidney injury) Current Visit: Yes Status: Acute (7) Anemia Current Visit: Yes Status: Acute (8) Epistaxis Current Visit: Yes Status: Acute (9) GI bleed Current Visit: Yes Status: Acute (10) Atrial fibrillation Current Visit: Yes Status: Acute Qualifiers: Atrial fibrillation type: persistent (not longstanding) Qualified Code(s): I48.19 - Other persistent atrial fibrillation; I48.1 - Persistent atrial fibrillation (11) Pulmonary HTN Current Visit: Yes Status: Chronic (12) HTN (hypertension) Current Visit: No Status: Chronic Qualifiers: Hypertension type: essential hypertension Qualified Code(s): I10 - Essential (primary) hypertension (13) DM2 (diabetes mellitus, type 2) Current Visit: Yes Status: Chronic (14) Seizure Current Visit: Yes Status: Chronic Subjective Date of service: 02/02/21 Principal diagnosis: CVA Interval history: Events reviewed. S/p PEA arrest at 0530, with subsequent initiation of ACLS protocol. ROSC achieved at 0630 per documentation. Following arrest, pt was noted to be in AF with RVR as well and was given IV Amio bolus according to documentation from Primary. Pt remains in AFlutter 80s on tele this AM (not on Amio gtt). Again requiring Levo gtt. Objective Last Vital Signs Temp 98.3 F 02/02/21 08:00 Pulse 91 H 02/02/21 11:00 Resp 26 H 02/02/21 11:00 BP 98/59 02/02/21 11:00 Pulse Ox 92 02/02/21 11:00 - Physical Examination General: Other (intubated) HEENT: Positive: Normocephaly Neck: Negative: JVD/HJR Cardiac: Positive: Irregularly Regular, S1/S2 Lungs: Positive: Other (coarse anteriorly) Neuro: Positive: Other (intubated) Abdomen: Positive: Firm Skin: Negative: Rash Musculoskeletal: No Fluid Collection Extremities: Present: lower extr. pulses, edema, warm - Labs and Meds CBC 02/02/21 Range/Units 04:40 WBC 15.3 H (4.5-11.0) K/mm3 RBC 2.65 L (3.65-5.03) M/mm3 Hgb 8.5 L (11.8-15.2) gm/dl Hct 26.5 L (35.5-45.6) % Plt Count 284 (140-440) K/mm3 Comprehensive Metabolic Panel 02/02/21 Range/Units 04:40 Sodium 140 (137-145) mmol/L Potassium 5.5 H (3.6-5.0) mmol/L Chloride 97.0 L (98-107) mmol/L Carbon Dioxide 29 (22-30) mmol/L BUN 122 H (9-20) mg/dL Creatinine 7.6 H (0.8-1.3) mg/dL Glucose 134 H (75-100) mg/dL Calcium 8.4 (8.4-10.2) mg/dL - Imaging and Cardiology EKG: report reviewed, image reviewed Echo: report reviewed (01/23/2021 - mild LVH, EF 50-55%, mod pulm HTN w/RVSP 53 mmHg, mod RA enlargement, mild RV enlargement with TR) - Telemetry EKG Rhythm: Atrial Flutter - EKG Supraventricular dysrhythmia: atrial fibrillation Repolarization changes or abnormalities: nonspecific abnormality, ST segment, and/or T wave - Allied health notes Allied health notes reviewed: nursing
--- NOTE | 2021-02-02 16:00 | Progress Note ---
Assessment and Plan This is a 65-year-old male with atrial fibrillation on Eliquis, hypertension, and diabetes who is admitted with suspected pneumonia, acute hypoxic respiratory failure, COVID-19 PUI, CVA and with hypertensive urgency S/P Cardiac arrest Acute hypoxic respiratory failure Remote Right MCA CVA Shock/hypotension - due to sepsis Septic shock: With fevers, white count. Central vs infectious etiology. -CXR with bilateral pneumonia. Given probably acute CVA with possible evolution may be central etiology. Seizure disorder Right middle and lower lobe pneumonia Acute metabolic encephalopathy Hypertensive urgency Type 2 diabetes Atrial fibrillation Hypernatremia Acute GI bleed BERKLEY, likely ATN Hyperkalemia -CCM, cardiology, neurology consulted, appreciate recommendations -01/20 CT head shows a well-defined area of decreased attenuation in the right parietal lobe, limited imagery secondary to artifact. MRI brain recommended for further work-up -01/20 CT chest shows possible mild inflammatory process in the right middle and right lower lobe -01/20 MRI brain pending -01/23 CT head shows no acute focal parenchymal lesion in the brain, no change to right middle frontal gyrus chronic ischemia -01/23/21 2d echo showed EF 50-55% -01/23 CXR shows right infrahilar opacity consistent with large areas of atelectasis of the right middle or lower lobe. 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 -01/26 CT head shows remote right MCA - EEG pending, MRI brain pending -Intubated 01/23 -VAP bundle, wean mechanical ventilation as tolerated -Continue meropenem, vancomycin -Aspirin, Lipitor -Sedated with propofol -restarted vasopressor support with Levophed -Hold antihypertensive regimen and setting of needing vasopressor support, resu me as tolerated -Neurochecks per protocol -Accu-Cheks every 6, SSI -Seizure precautions -Tube feedings -Trend BMP, CBC DVT/GI prophylaxis: Heparin subcu, PPIm SCDs to BLE while in bed Disposition: ICU The high probability of a clinically significant, sudden or life threatening deterioration of the [Respiratory, neuro, metabolic, infectious,] system(s) required my full and direct attention, intervention and personal management. The aggregate critical care time was [34] minutes. This time is in addition to time spent performing reported procedures but includes the following: [x] Data Review and interpretation [x] Patient assessment and monitoring of vital signs [x] Documentation [x] Medication orders and management Brief history: This is a 65-year-old male with atrial fibrillation on Eliquis, hypertension, and diabetes who presents to the emergency on 01/20 with complaints of progressive generalized weakness, gait unsteadiness, cough and fever. Upon EMS arrival patient was febrile with a temperature of 102 and hypoxic with SPO2 in the 70s on room air. Work-up in the emergency department included a CT scan of his chest which showed possible mild inflammatory process in his right middle and lower lobe, CT head was admitted secondary to artifact but noted a low- density area in the right parietal lobe. Patient was admitted to the hospitalist service with suspected pneumonia, acute hypoxic respiratory failure, COVID-19 PUI, rule out CVA and with hypertensive urgency. Neurology was consulted. repeat CT head on 01/28/21 showed remote right MCA infarction.. Daily clinical course: 01/22/2021; neuro work-up is in progress, follow PT OT celia. Neurology consult, continue antibiotics and supportive care 01/23/2021; patient went into acute respiratory failure requiring intubation and ventilatory support. Patient is transferred to ICU, pulmonary critical consulted, hypotensive started on Levophed. Pulmonary critical, cardiology and neurology following the patient. updated by Dr. Cho 01/24: Patient is awaiting further neuro imaging and is restrained the time my examination. Patient is not sedated and on assist control tidal volume 500, rate of 24, PEEP of 8 on FiO2 70%. Patient is severely agitated and is started on propofol drip per [facility]. He has hypophosphatemia today which was repleted. We will repeat BMP and phosphate level in the a.m. 01/25: Patient has hypokalemia today which was repleted today. Cr decreased to 1.2 from 1.5. Hypophosphatemia is resolved. Awaiting MRI brain. Sedated with propofol and on AC TV 500, R 20, PEEP 10, on FiO2 80%. Levophed was off at the time of my examination. Awaiting MRI . 01/26: The time my examination patient is sedated on propofol and this morning he has worsening hypernatremia and creatinine. The time examination patient is on assist control tidal volume 500, rate of 16, PEEP of 10 and 80% FiO2. Patient will follow commands with sedation vacation. Neurology ordered a repeat CT head bleed to assess if patient can be restarted on p.o. anticoagulation. We will increase the water flushes. 01/27: CTH obtained yesterday shows evidence of remote right MCA infarct. Patient remains sedated with Propofol and on MV AC TV 500, R 16, PEEP 10 and FiO2 80%. Bowel regimen started, will continue to trend CBC/BMP. 01/28 Patient with acute respiratory failure, afib, hypertension. Remote right MCA stroke seen on CT Head done on 01/26. Neurology following. Completed Rocephin and Zithromax for pneumonia 01/29: Noted coffee-ground discharges from [facility] today, hold any heparin product and aspirin. Started on Protonix drip. Monitor H&H every 8 hours consulted GI. Hold tube feeding for now. 01/30: Noted to have recurrent nose bleed from left nostrils. discussed with RN to apply epinephrine spray and nasal packing. Continue to monitor H&H. Continue PPI. Creatinine trending up consulted nephrology, also started on half-normal saline. Monitor BMP. GI recommended conservative management. Continue to follow. 01/31: Renal function cont to decline with elevated Cr/BUN. Placed vascath, planned to HD. updated family by dr Clrak. Patient remains mechanical ventilation. 02/01: Patient require urgent hemodialysis due to significant decline in the renal function, oliguria and hyperkalemia. But unable to reach out to family. HD will be initiated on HD for medical necessity. 02/02: Patient had cardiac arrest this am, resuscitated with ACLS protocol. fami ly updated at the bedside. remains on mechanical ventilation. Cont empiric abx. Pt remains in AF post-arrest with well-controlled rate. May utilize Amiodarone gtt if rate increases and sustains > 130 bpm. Patient is very high risk for bleeding - has very recent epistaxis and h/h trending down. Also with recent CVA. will follow closely. Subjective Date of service: 06/12/21 Principal diagnosis: CVA Interval history: Patient seen and examined. Medical records and medication list reviewed. Patient had cardiac arrest this am - ACLS initiated Discussed plan of care at bedside with patient's RN updated patient's daughter, at bedside and also with his sister by phone family wants to keep him as full code . Objective - Exam Narrative Exam: - Physical exam Narrative exam: General appearance: Present: no acute distress, obese, mechanical ventilation - EENT Eyes: Present: PERRL ENT: clear oral mucosa, no bloody discharge from left nostril - Neck Neck: Present: normal ROM - Respiratory Respiratory effort: normal Respiratory: bilateral: diminished - Cardiovascular Rhythm: regular Heart Sounds: Present: S1 & S2. Absent: systolic murmur, diastolic murmur - Extremities Extremities: no ischemia, pulses intact, pulses symmetrical, No edema, normal temperature, normal color Peripheral Pulses: within normal limits - Abdominal General gastrointestinal: soft, non-tender, non-distended, normal bowel sounds - Integumentary Integumentary: Present: warm, dry - Psychiatric Psychiatric: cooperative, agitated - Neurologic Neurologic: moves all extremities - Allied Health Allied health notes reviewed: nursing, RT - Constitutional Vitals: Vital Signs - 12hr 02/02/21 02/02/21 02/02/21 04:00 04:15 04:30 Temperature Pulse Rate 78 79 94 H Pulse Rate [ 83 From Monitor] Respiratory 13 23 20 Rate Blood Pressure 124/82 119/78 144/83 O2 Sat by Pulse 95 98 95 Oximetry 02/02/21 02/02/21 02/02/21 04:46 05:00 05:16 Temperature Pulse Rate 79 94 H 94 H Pulse Rate [ From Monitor] Respiratory 27 H 24 20 Rate Blood Pressure 115/71 121/54 135/86 O2 Sat by Pulse 96 96 95 Oximetry 02/02/21 02/02/21 02/02/21 05:30 05:46 06:00 Temperature Pulse Rate 101 H 112 H Pulse Rate [ From Monitor] Respiratory 30 H 21 Rate Blood Pressure 135/86 135/86 75/46 O2 Sat by Pulse 91 89 Oximetry 02/02/21 02/02/21 02/02/21 06:15 06:30 06:45 Temperature Pulse Rate 95 H 45 L 100 H Pulse Rate [ From Monitor] Respiratory 21 20 Rate Blood Pressure 68/43 103/74 166/97 O2 Sat by Pulse 95 80 L Oximetry 02/02/21 02/02/21 02/02/21 07:00 07:15 07:22 Temperature Pulse Rate 76 87 90 Pulse Rate [ From Monitor] Respiratory 20 20 Rate Blood Pressure 109/64 102/52 107/57 O2 Sat by Pulse 92 96 97 Oximetry 02/02/21 02/02/21 02/02/21 07:30 07:45 07:55 Temperature Pulse Rate 83 83 Pulse Rate [ 82 From Monitor] Respiratory 22 25 H 16 Rate Blood Pressure 103/53 96/50 O2 Sat by Pulse 99 97 92 Oximetry 02/02/21 02/02/21 02/02/21 08:00 08:15 08:30 Temperature 98.3 F Pulse Rate 85 87 87 Pulse Rate [ From Monitor] Respiratory 25 H 26 H 27 H Rate Blood Pressure 102/59 109/53 104/57 O2 Sat by Pulse 94 97 96 Oximetry 02/02/21 02/02/21 02/02/21 08:45 09:00 09:15 Temperature Pulse Rate 87 84 85 Pulse Rate [ From Monitor] Respiratory 18 20 23 Rate Blood Pressure 103/50 115/57 117/61 O2 Sat by Pulse 97 90 78 L Oximetry 02/02/21 02/02/21 02/02/21 09:30 09:45 10:00 Temperature Pulse Rate 86 86 86 Pulse Rate [ From Monitor] Respiratory 21 22 25 H Rate Blood Pressure 123/60 120/58 103/58 O2 Sat by Pulse 95 Oximetry 02/02/21 02/02/21 02/02/21 10:15 10:30 10:45 Temperature Pulse Rate 86 86 86 Pulse Rate [ From Monitor] Respiratory 21 22 28 H Rate Blood Pressure 107/58 108/62 97/54 O2 Sat by Pulse 87 90 85 Oximetry 02/02/21 02/02/21 02/02/21 11:00 11:15 11:29 Temperature Pulse Rate 91 H 89 92 H Pulse Rate [ From Monitor] Respiratory 26 H 23 Rate Blood Pressure 98/59 104/60 119/70 O2 Sat by Pulse 92 87 91 Oximetry 02/02/21 02/02/21 02/02/21 11:30 11:45 12:00 Temperature 97.9 F Pulse Rate 89 88 91 H Pulse Rate [ 82 From Monitor] Respiratory 26 H 24 22 Rate Blood Pressure 119/70 104/61 108/58 O2 Sat by Pulse 90 92 93 Oximetry 02/02/21 02/02/21 02/02/21 12:15 12:30 12:45 Temperature Pulse Rate 94 H 94 H 114 H Pulse Rate [ From Monitor] Respiratory 24 25 H 25 H Rate Blood Pressure 109/62 120/68 81/47 O2 Sat by Pulse 92 93 Oximetry 02/02/21 02/02/21 02/02/21 13:00 13:15 13:30 Temperature Pulse Rate 97 H 93 H 96 H Pulse Rate [ From Monitor] Respiratory 21 23 20 Rate Blood Pressure 114/60 101/53 95/56 O2 Sat by Pulse 88 89 88 Oximetry 02/02/21 02/02/21 02/02/21 13:45 14:00 14:15 Temperature Pulse Rate 99 H 119 H 103 H Pulse Rate [ From Monitor] Respiratory 21 22 19 Rate Blood Pressure 100/61 95/69 112/66 O2 Sat by Pulse 90 90 86 Oximetry 02/02/21 02/02/21 02/02/21 14:30 14:45 15:00 Temperature Pulse Rate 103 H 103 H 98 H Pulse Rate [ From Monitor] Respiratory 22 21 22 Rate Blood Pressure 113/66 116/64 107/64 O2 Sat by Pulse 90 91 91 Oximetry 02/02/21 02/02/21 02/02/21 15:15 15:16 15:30 Temperature Pulse Rate 101 H 101 H 103 H Pulse Rate [ From Monitor] Respiratory 21 22 Rate Blood Pressure 102/65 102/65 106/67 O2 Sat by Pulse 91 92 94 Oximetry 02/02/21 15:45 Temperature Pulse Rate 103 H Pulse Rate [ From Monitor] Respiratory 22 Rate Blood Pressure 114/73 O2 Sat by Pulse 95 Oximetry - Labs CBC & Chem 7: 02/03/21 05:44 02/03/21 Unknown Labs: Abnormal lab results 02/01/21 02/01/21 02/02/21 Range/Units 17:25 22:33 04:00 WBC (4.5-11.0) K/mm3 RBC (3.65-5.03) M/mm3 Hgb (11.8-15.2) gm/dl Hct (35.5-45.6) % MCV (84-94) fl Seg Neuts % (Manual) (40.0-70.0) % Lymphocytes % (Manual) (13.4-35.0) % Seg Neutrophils # Man (1.8-7.7) K/mm3 Lymphocytes # (Manual) (1.2-5.4) K/mm3 ABG pH 7.266 L (7.320-7.450) POC ABG pCO2 63.4 H (32.0-48.0) mmHg ABG Hemoglobin 9.3 L (12.0-17.5) ABG Oxyhemoglobin 93.8 L (94-98) ABG Potassium 5.4 H (3.40-4.50) mmol/L ABG Glucose 147 H (65-95) mg/dL Potassium (3.6-5.0) mmol/L Chloride (98-107) mmol/L BUN (9-20) mg/dL Creatinine (0.8-1.3) mg/dL Glucose (75-100) mg/dL POC Glucose 138 H 155 H (70-105) mg/dL Magnesium (1.7-2.3) mg/dL Arterial Blood Glucose 147 H (65-95) mg/dL Arterial Blood Ionized Calcium 4.1 L (4.6-5.3) mg/dL 02/02/21 02/02/21 02/02/21 Range/Units 04:40 04:40 04:40 WBC 15.3 H (4.5-11.0) K/mm3 RBC 2.65 L (3.65-5.03) M/mm3 Hgb 8.5 L (11.8-15.2) gm/dl Hct 26.5 L (35.5-45.6) % MCV 100 H (84-94) fl Seg Neuts % (Manual) 96.0 H (40.0-70.0) % Lymphocytes % (Manual) 3.0 L (13.4-35.0) % Seg Neutrophils # Man 14.7 H (1.8-7.7) K/mm3 Lymphocytes # (Manual) 0.5 L (1.2-5.4) K/mm3 ABG pH (7.320-7.450) POC ABG pCO2 (32.0-48.0) mmHg ABG Hemoglobin (12.0-17.5) ABG Oxyhemoglobin (94-98) ABG Potassium (3.40-4.50) mmol/L ABG Glucose (65-95) mg/dL Potassium 5.5 H (3.6-5.0) mmol/L Chloride 97.0 L (98-107) mmol/L BUN 122 H (9-20) mg/dL Creatinine 7.6 H (0.8-1.3) mg/dL Glucose 134 H (75-100) mg/dL POC Glucose 124 H (70-105) mg/dL Magnesium (1.7-2.3) mg/dL Arterial Blood Glucose (65-95) mg/dL Arterial Blood Ionized Calcium (4.6-5.3) mg/dL 02/02/21 02/02/21 Range/Units 11:31 14:21 WBC (4.5-11.0) K/mm3 RBC (3.65-5.03) M/mm3 Hgb (11.8-15.2) gm/dl Hct (35.5-45.6) % MCV (84-94) fl Seg Neuts % (Manual) (40.0-70.0) % Lymphocytes % (Manual) (13.4-35.0) % Seg Neutrophils # Man (1.8-7.7) K/mm3 Lymphocytes # (Manual) (1.2-5.4) K/mm3 ABG pH (7.320-7.450) POC ABG pCO2 (32.0-48.0) mmHg ABG Hemoglobin (12.0-17.5) ABG Oxyhemoglobin (94-98) ABG Potassium (3.40-4.50) mmol/L ABG Glucose (65-95) mg/dL Potassium (3.6-5.0) mmol/L Chloride (98-107) mmol/L BUN (9-20) mg/dL Creatinine (0.8-1.3) mg/dL Glucose (75-100) mg/dL POC Glucose 144 H (70-105) mg/dL Magnesium 3.50 H (1.7-2.3) mg/dL Arterial Blood Glucose (65-95) mg/dL Arterial Blood Ionized Calcium (4.6-5.3) mg/dL HEART Score - HEART Score Troponin: Troponin T < 0.010 ng/mL (0.00-0.029) 01/20/21 19:26
--- NOTE | 2021-02-02 16:10 | Progress Note ---
Assessment and Plan 1. Acute kidney injury: Vasomotor [place] in the setting of shock. Low FeNa. Renal US negative for hydro. Suspect ATN. Monitor renal function. Creatinine level remains high. Oliguric. Renal prognosis is guarded. Avoid nephrotoxic agents. Meds dosage based on GFR. 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 Patient require hemodialysis due to significant decline in renal function, oliguria, hyperkalemia and volume overload. Hemodialysis: 02/01. 2. FEN: Hyperkalemia, meds ordered, HD today, monitor. Hypernatremia, monitor. Monitor lytes and volume status. 3. Acute hypoxemic respiratory failure: Currently intubated on vent. Followed by Pulmonary. 4. Shock: Likely septic. Right middle and lower lobe pneumonia. On Levophed and Vasoprressin, monitor. On Meropenem and Vanco. Followed by ID. 5. S/p Cardiac arrest: Monitor. 6. Acute metabolic encephalopathy: CT head negative for acute process. 7. A.fib. 8. Acute GI bleed: Followed by GI. 9. Anemia, not POA: Monitor. 10. DM type 2. 11. Seizure. Subjective: Patient was seen and examined at the bedside. Events this AM noted, s/p cardiac arrest. Examination: General appearance: well-developed, appears stated age, intubated on vent HEENT: atraumatic, pupils appears equal Neck: trachea midline Respiratory: Coarse breath sounds heard Heart: S1S2, no murmur Abdomen: soft, obese, bowel sounds heard, NT Integumentary: no obvious rash Neurologic: sedated Ext: no edema noted : Wilde catheter Hemodialysis access: R femoral catheter Subjective Date of service: 02/02/21 Principal diagnosis: CVA Objective - Vital Signs Vital signs: Vital Signs - 12hr 02/02/21 02/02/21 02/02/21 04:15 04:30 04:46 Temperature Pulse Rate 79 94 H 79 Pulse Rate [ From Monitor] Respiratory 23 20 27 H Rate Blood Pressure 119/78 144/83 115/71 O2 Sat by Pulse 98 95 96 Oximetry 02/02/21 02/02/21 02/02/21 05:00 05:16 05:30 Temperature Pulse Rate 94 H 94 H Pulse Rate [ From Monitor] Respiratory 24 20 Rate Blood Pressure 121/54 135/86 135/86 O2 Sat by Pulse 96 95 91 Oximetry 02/02/21 02/02/21 02/02/21 05:46 06:00 06:15 Temperature Pulse Rate 101 H 112 H 95 H Pulse Rate [ From Monitor] Respiratory 30 H 21 21 Rate Blood Pressure 135/86 75/46 68/43 O2 Sat by Pulse 89 Oximetry 02/02/21 02/02/21 02/02/21 06:30 06:45 07:00 Temperature Pulse Rate 45 L 100 H 76 Pulse Rate [ From Monitor] Respiratory 20 20 Rate Blood Pressure 103/74 166/97 109/64 O2 Sat by Pulse 95 80 L 92 Oximetry 02/02/21 02/02/21 02/02/21 07:15 07:22 07:30 Temperature Pulse Rate 87 90 83 Pulse Rate [ From Monitor] Respiratory 20 22 Rate Blood Pressure 102/52 107/57 103/53 O2 Sat by Pulse 96 97 99 Oximetry 02/02/21 02/02/21 02/02/21 07:45 07:55 08:00 Temperature 98.3 F Pulse Rate 83 85 Pulse Rate [ 82 From Monitor] Respiratory 25 H 16 25 H Rate Blood Pressure 96/50 102/59 O2 Sat by Pulse 97 92 94 Oximetry 02/02/21 02/02/21 02/02/21 08:15 08:30 08:45 Temperature Pulse Rate 87 87 87 Pulse Rate [ From Monitor] Respiratory 26 H 27 H 18 Rate Blood Pressure 109/53 104/57 103/50 O2 Sat by Pulse 97 96 97 Oximetry 02/02/21 02/02/21 02/02/21 09:00 09:15 09:30 Temperature Pulse Rate 84 85 86 Pulse Rate [ From Monitor] Respiratory 20 23 21 Rate Blood Pressure 115/57 117/61 123/60 O2 Sat by Pulse 90 78 L 95 Oximetry 02/02/21 02/02/21 02/02/21 09:45 10:00 10:15 Temperature Pulse Rate 86 86 86 Pulse Rate [ From Monitor] Respiratory 22 25 H 21 Rate Blood Pressure 120/58 103/58 107/58 O2 Sat by Pulse 87 Oximetry 02/02/21 02/02/21 02/02/21 10:30 10:45 11:00 Temperature Pulse Rate 86 86 91 H Pulse Rate [ From Monitor] Respiratory 22 28 H 26 H Rate Blood Pressure 108/62 97/54 98/59 O2 Sat by Pulse 90 85 92 Oximetry 02/02/21 02/02/21 02/02/21 11:15 11:29 11:30 Temperature Pulse Rate 89 92 H 89 Pulse Rate [ From Monitor] Respiratory 23 26 H Rate Blood Pressure 104/60 119/70 119/70 O2 Sat by Pulse 87 91 90 Oximetry 02/02/21 02/02/21 02/02/21 11:45 12:00 12:15 Temperature 97.9 F Pulse Rate 88 91 H 94 H Pulse Rate [ 82 From Monitor] Respiratory 24 22 24 Rate Blood Pressure 104/61 108/58 109/62 O2 Sat by Pulse 92 93 92 Oximetry 02/02/21 02/02/21 02/02/21 12:30 12:45 13:00 Temperature Pulse Rate 94 H 114 H 97 H Pulse Rate [ From Monitor] Respiratory 25 H 25 H 21 Rate Blood Pressure 120/68 81/47 114/60 O2 Sat by Pulse 93 88 Oximetry 02/02/21 02/02/21 02/02/21 13:15 13:30 13:45 Temperature Pulse Rate 93 H 96 H 99 H Pulse Rate [ From Monitor] Respiratory 23 20 21 Rate Blood Pressure 101/53 95/56 100/61 O2 Sat by Pulse 89 88 90 Oximetry 02/02/21 02/02/21 02/02/21 14:00 14:15 14:30 Temperature Pulse Rate 119 H 103 H 103 H Pulse Rate [ From Monitor] Respiratory 22 19 22 Rate Blood Pressure 95/69 112/66 113/66 O2 Sat by Pulse 90 86 90 Oximetry 02/02/21 02/02/21 02/02/21 14:45 15:00 15:15 Temperature Pulse Rate 103 H 98 H 101 H Pulse Rate [ From Monitor] Respiratory 21 22 Rate Blood Pressure 116/64 107/64 102/65 O2 Sat by Pulse 91 91 91 Oximetry 02/02/21 02/02/21 02/02/21 15:16 15:30 15:45 Temperature Pulse Rate 101 H 103 H 103 H Pulse Rate [ From Monitor] Respiratory 21 22 22 Rate Blood Pressure 102/65 106/67 114/73 O2 Sat by Pulse 92 94 95 Oximetry - Lab 02/02/21 04:40 02/02/21 04:40 Most recent lab results ABG pH 7.266 (7.320-7.450) L 02/02/21 04:00 ABG O2 Saturation 94.7 (0-100) 02/02/21 04:00 Calcium 8.4 mg/dL (8.4-10.2) 02/02/21 04:40 Phosphorus 2.50 mg/dL (2.5-4.5) D 01/25/21 09:40 Magnesium 3.50 mg/dL (1.7-2.3) H 02/02/21 14:21 Urine Creatinine 132.3 mg/dL (0.1-20.0) H 01/30/21 Unknown Urine Sodium 18 mmol/L 01/30/21 Unknown Urine Total Protein 504 mg/dL (5-11.8) H 01/30/21 Unknown Medications & Allergies - Medications Allergies/Adverse Reactions: Allergies No Known Allergies Allergy (Unverified 01/20/21 19:59) Home Medications: Home Medications Medication Instructions Recorded Confirmed Last Taken Type Amlodipine Besylate [Norvasc] 10 mg PO DAILY 01/20/21 01/20/21 01/19/21 History Atorvastatin [Lipitor Tab] 80 mg PO DAILY 01/20/21 01/20/21 01/19/21 History Banophen Anti-Itch 25 mg PO DAILY 01/20/21 01/20/21 01/19/21 History Metformin HCl [metFORMIN ER 500 mg PO DAILY 01/20/21 01/20/21 01/19/21 History Osmotic] Metoprolol [Lopressor] 25 mg PO DAILY 01/20/21 01/20/21 01/19/21 History Active Medications: Generic Name Dose Route Start Last Admin Trade Name Freq PRN Reason Stop Dose Admin Acetaminophen 650 mg 01/20/21 23:38 02/01/21 03:11 Acetaminophen 325 Mg Tab PO 650 mg Q4H PRN Administration Pain MILD(1-3)/Fever >100.5/G[place] Acetaminophen 650 mg 01/23/21 08:23 01/31/21 04:40 Acetaminophen 650 Mg Rect Supp CA 650 mg Q4H PRN Administration Pain, Mild (1-3) IF NPO Albuterol 2.5 mg 01/20/21 23:38 Albuterol 2.5 Mg/3 Ml Nebu IH Q4HRT PRN Shortness Of Breath Lipase/Protease/Amylase 1 each 01/24/21 08:04 Lipase 10,500/Protease 25,000/Amylase 43,750 (Units) Dr Cap FEEDTUBE PRN PRN For Clogged Feeding Tube Atorvastatin Calcium 80 mg 01/21/21 10:00 02/02/21 09:12 Atorvastatin 40 Mg Tab PO 80 mg DAILY NGUYEN Administration Dextrose 0 ml 01/20/21 23:38 Dextrose 50% In Water (25gm) 50 Ml Syringe IV Q30MIN PRN Hypoglycemia Protocol Dextrose 50 ml 02/02/21 16:06 Dextrose 50% In Water (25gm) 50 Ml Syringe IV 02/02/21 16:07 ONCE ONE Protocol Docusate Sodium 100 mg 01/30/21 10:00 02/02/21 09:14 Docusate Sodium 100 Mg/10 Ml Oral Liqd FEEDTUBE 100 mg BID NGUYEN Administration Fentanyl 50 mcg 01/23/21 16:00 01/31/21 10:16 Fentanyl 100 Mcg/2 Ml Inj IV 50 mcg Q2H PRN Administration Pain , Severe (7-10) Heparin Sodium (Porcine) 3,000 unit 02/02/21 11:00 Heparin 10,000 Units/10 Ml Vial IV PORTER PRN hemodialysis Hydralazine HCl 10 mg 01/20/21 23:46 Hydralazine 20 Mg/1 Ml Inj IV Q6H PRN htn Norepinephrine 4 mg in 250 mls @ 7.5 mls/hr 01/23/21 13:00 02/02/21 15:57 Levophed Drip 4 Mg/Ns 250 Ml IV 10 mcg/min TITR NGUYEN 37.5 mls/hr Administration Protocol 2 MCG/MIN Propofol 1,000 mg in 100 mls @ 3.468 mls/hr 01/24/21 11:00 01/29/21 09:15 Diprivan 10 Mg/Ml IV 0 mcg/kg/min TITR NGUYEN 0 mls/hr Titration Protocol 5 MCG/KG/MIN MEROPENEM/NS 1 GRAM/100 ML 1 gram in 100 mls @ 100 mls/hr 02/01/21 18:00 02/01/21 17:29 Merrem/Ns 1 Gram/100 Ml IV 100 mls/hr Q24H NGUYEN Administration Protocol Sodium Chloride 100 mls @ 999 mls/hr 02/01/21 08:10 Nacl 0.9% IV PORTER PRN Hypotension Vasopressin 20 unit/ Sodium 101 mls @ 9.09 mls/hr 02/02/21 07:00 02/02/21 09:54 Chloride IV 0.01 units/min TITR NGUYEN 3.03 mls/hr Administration Protocol 0.03 UNITS/MIN Insulin Human Lispro 0 unit 01/21/21 00:00 02/02/21 13:21 Insulin Lispro 100 Unit/Ml SUB-Q Not Given Q6HR [facility] Protocol Insulin Human Regular 4 units 02/02/21 16:06 Insulin Regular, Human 100 Units/1 Ml IV 02/02/21 16:07 ONCE ONE Lorazepam 2 mg 01/23/21 12:22 01/27/21 22:39 Lorazepam 2 Mg/Ml Vial IV 2 mg Q4H PRN Administration Agitation Ondansetron HCl 4 mg 01/20/21 23:38 Ondansetron 4 Mg/2 Ml Inj IV Q8H PRN Nausea And Vomiting Pantoprazole Sodium 40 mg 02/02/21 10:00 02/02/21 09:14 Pantoprazole 40 Mg Inj IV 40 mg QDAY NGUYEN Administration Senna 8.6 mg 01/27/21 09:59 01/28/21 09:34 Sennosides 8.6 Mg Tab PO 8.6 mg Q12H PRN Administration Laxative Effect Simple Syrup 15 ml 01/24/21 08:04 Simple Syrup 15 Ml FEEDTUBE PRN PRN Hypoglycemia Simple Syrup 30 ml 01/24/21 08:04 Simple Syrup 15 Ml FEEDTUBE PRN PRN Hypoglycemia Sodium Bicarbonate 325 mg 01/24/21 08:04 Sodium Bicarbonate 325 Mg Tab FEEDTUBE PRN PRN For Clogged Feeding Tube Sodium Chloride 10 ml 01/21/21 10:00 02/02/21 09:15 Sodium Chloride 0.9% 10 Ml Flush Syringe IV 10 ml BID GNUYEN Administration Sodium Chloride 10 ml 01/20/21 23:38 Sodium Chloride 0.9% 10 Ml Flush Syringe IV PRN PRN LINE FLUSH Sodium Polystyrene Sulfonate 30 gm 02/02/21 16:05 Sodium Polystyrene 15 Gm/60 Ml Oral Liqd PO 02/02/21 16:06 ONCE ONE
--- NOTE | 2021-02-02 16:25 | Progress Note ---
Assessment and Plan Imp: 1. CVA 2. Pneumonia, ? aspiration 3. Sepsis with septic shock 4. Acute respiratory failure, hypoxia 5. Probable ARDS 6. Encephlopathy 7. [place] 8. Hyperkalemia 9. S/p CP arrest Rec: 1. Cont. current vent settings as he is already overbreathing the vent and do not want to increase TV further in setting of probable ARDS; wean FiO2 to keep sats 88% or >, and if worsening hypoxia occurs will have to increase PEEP 2. Volume removal with HD if possible; defer K correction to renal 3. ABX per ID 4. Monitor H/H; no reason to transfuse currently 5. No sedation 6. SCDs and PPI; TFs as tolerated No family present. CCT 31 minutes. Subjective Date of service: 02/02/21 Principal diagnosis: CVA Interval history: Had CP arrest this AM with ROSC. Poorly responsive on vent at 100% FiO2 and PEEP of 14. Active Medications Acetaminophen (Acetaminophen 325 Mg Tab) 650 mg PO Q4H PRN PRN Reason: Pain MILD(1-3)/Fever >100.5/[place] Last Admin: 02/01/21 03:11 Dose: 650 mg Documented by: Acetaminophen (Acetaminophen 650 Mg Rect Supp) 650 mg SC Q4H PRN PRN Reason: Pain, Mild (1-3) IF NPO Last Admin: 01/31/21 04:40 Dose: 650 mg Documented by: Albuterol (Albuterol 2.5 Mg/3 Ml Nebu) 2.5 mg IH Q4HRT PRN PRN Reason: Shortness Of Breath Lipase/Protease/Amylase (Lipase 10,500/Protease 25,000/Amylase 43,750 (Units) Dr Anguiano) 1 each FEEDTUBE PRN PRN PRN Reason: For Clogged Feeding Tube Atorvastatin Calcium (Atorvastatin 40 Mg Tab) 80 mg PO DAILY [facility] Last Admin: 02/02/21 09:12 Dose: 80 mg Documented by: Dextrose (Dextrose 50% In Water (25gm) 50 Ml Syringe) 0 ml IV Q30MIN PRN; Protocol PRN Reason: Hypoglycemia Dextrose (Dextrose 50% In Water (25gm) 50 Ml Syringe) 50 ml IV ONCE ONE; Protocol Stop: 02/02/21 17:07 Docusate Sodium (Docusate Sodium 100 Mg/10 Ml Oral Liqd) 100 mg FEEDTUBE BID [facility] Last Admin: 02/02/21 09:14 Dose: 100 mg Documented by: Fentanyl (Fentanyl 100 Mcg/2 Ml Inj) 50 mcg IV Q2H PRN PRN Reason: Pain , Severe (7-10) Last Admin: 01/31/21 10:16 Dose: 50 mcg Documented by: Heparin Sodium (Porcine) (Heparin 10,000 Units/10 Ml Vial) 3,000 unit IV PORTER PRN PRN Reason: hemodialysis Hydralazine HCl (Hydralazine 20 Mg/1 Ml Inj) 10 mg IV Q6H PRN PRN Reason: htn Norepinephrine (Levophed Drip 4 Mg/Ns 250 Ml) 4 mg in 250 mls @ 7.5 mls/hr IV TITR NGUYEN; Protocol Last Admin: 02/02/21 15:57 Dose: 10 mcg/min, 37.5 mls/hr Documented by: Propofol (Diprivan 10 Mg/Ml) 1,000 mg in 100 mls @ 3.468 mls/hr IV TITR NGUYEN; Protocol Last Titration: 01/29/21 09:15 Dose: 0 mcg/kg/min, 0 mls/hr Documented by: MEROPENEM/NS 1 GRAM/100 ML (Merrem/Ns 1 Gram/100 Ml) 1 gram in 100 mls @ 100 mls/hr IV Q24H NGUYEN; Protocol Last Admin: 02/01/21 17:29 Dose: 100 mls/hr Documented by: Sodium Chloride (Nacl 0.9%) 100 mls @ 999 mls/hr IV PORTER PRN PRN Reason: Hypotension Vasopressin 20 unit/ Sodium (Chloride) 101 mls @ 9.09 mls/hr IV TITR NGUYEN; Protocol Last Admin: 02/02/21 09:54 Dose: 0.01 units/min, 3.03 mls/hr Documented by: Insulin Human Lispro (Insulin Lispro 100 Unit/Ml) 0 unit SUB-Q Q6HR NGUYEN; Protocol Last Admin: 02/02/21 13:21 Dose: Not Given Documented by: Insulin Human Regular (Insulin Regular, Human 100 Units/1 Ml) 4 units IV ONCE ONE Stop: 02/02/21 17:07 Lorazepam (Lorazepam 2 Mg/Ml Vial) 2 mg IV Q4H PRN PRN Reason: Agitation Last Admin: 01/27/21 22:39 Dose: 2 mg Documented by: Ondansetron HCl (Ondansetron 4 Mg/2 Ml Inj) 4 mg IV Q8H PRN PRN Reason: Nausea And Vomiting Pantoprazole Sodium (Pantoprazole 40 Mg Inj) 40 mg IV QDAY [facility] Last Admin: 02/02/21 09:14 Dose: 40 mg Documented by: Senna (Sennosides 8.6 Mg Tab) 8.6 mg PO Q12H PRN PRN Reason: Laxative Effect Last Admin: 01/28/21 09:34 Dose: 8.6 mg Documented by: Simple Syrup (Simple Syrup 15 Ml) 15 ml FEEDTUBE PRN PRN PRN Reason: Hypoglycemia Simple Syrup (Simple Syrup 15 Ml) 30 ml FEEDTUBE PRN PRN PRN Reason: Hypoglycemia Sodium Bicarbonate (Sodium Bicarbonate 325 Mg Tab) 325 mg FEEDTUBE PRN PRN PRN Reason: For Clogged Feeding Tube Sodium Chloride (Sodium Chloride 0.9% 10 Ml Flush Syringe) 10 ml IV BID [facility] Last Admin: 02/02/21 09:15 Dose: 10 ml Documented by: Sodium Chloride (Sodium Chloride 0.9% 10 Ml Flush Syringe) 10 ml IV PRN PRN PRN Reason: LINE FLUSH Sodium Polystyrene Sulfonate (Sodium Polystyrene 15 Gm/60 Ml Oral Liqd) 30 gm PO ONCE ONE Stop: 02/02/21 17:06 Objective Vital Signs - 12hr 02/02/21 02/02/21 02/02/21 04:30 04:46 05:00 Temperature Pulse Rate 94 H 79 94 H Pulse Rate [ From Monitor] Respiratory 20 27 H 24 Rate Blood Pressure 144/83 115/71 121/54 O2 Sat by Pulse 95 96 96 Oximetry 02/02/21 02/02/21 02/02/21 05:16 05:30 05:46 Temperature Pulse Rate 94 H 101 H Pulse Rate [ From Monitor] Respiratory 20 30 H Rate Blood Pressure 135/86 135/86 135/86 O2 Sat by Pulse 95 91 89 Oximetry 02/02/21 02/02/21 02/02/21 06:00 06:15 06:30 Temperature Pulse Rate 112 H 95 H 45 L Pulse Rate [ From Monitor] Respiratory 21 21 Rate Blood Pressure 75/46 68/43 103/74 O2 Sat by Pulse 95 Oximetry 02/02/21 02/02/21 02/02/21 06:45 07:00 07:15 Temperature Pulse Rate 100 H 76 87 Pulse Rate [ From Monitor] Respiratory 20 20 20 Rate Blood Pressure 166/97 109/64 102/52 O2 Sat by Pulse 80 L 92 96 Oximetry 02/02/21 02/02/21 02/02/21 07:22 07:30 07:45 Temperature Pulse Rate 90 83 83 Pulse Rate [ From Monitor] Respiratory 22 25 H Rate Blood Pressure 107/57 103/53 96/50 O2 Sat by Pulse 97 99 97 Oximetry 02/02/21 02/02/21 02/02/21 07:55 08:00 08:15 Temperature 98.3 F Pulse Rate 85 87 Pulse Rate [ 82 From Monitor] Respiratory 16 25 H 26 H Rate Blood Pressure 102/59 109/53 O2 Sat by Pulse 92 94 97 Oximetry 02/02/21 02/02/21 02/02/21 08:30 08:45 09:00 Temperature Pulse Rate 87 87 84 Pulse Rate [ From Monitor] Respiratory 27 H 18 20 Rate Blood Pressure 104/57 103/50 115/57 O2 Sat by Pulse 96 97 90 Oximetry 02/02/21 02/02/21 02/02/21 09:15 09:30 09:45 Temperature Pulse Rate 85 86 86 Pulse Rate [ From Monitor] Respiratory 23 21 22 Rate Blood Pressure 117/61 123/60 120/58 O2 Sat by Pulse 78 L 95 Oximetry 02/02/21 02/02/21 02/02/21 10:00 10:15 10:30 Temperature Pulse Rate 86 86 86 Pulse Rate [ From Monitor] Respiratory 25 H 21 22 Rate Blood Pressure 103/58 107/58 108/62 O2 Sat by Pulse 87 90 Oximetry 02/02/21 02/02/21 02/02/21 10:45 11:00 11:15 Temperature Pulse Rate 86 91 H 89 Pulse Rate [ From Monitor] Respiratory 28 H 26 H 23 Rate Blood Pressure 97/54 98/59 104/60 O2 Sat by Pulse 85 92 87 Oximetry 02/02/21 02/02/21 02/02/21 11:29 11:30 11:45 Temperature Pulse Rate 92 H 89 88 Pulse Rate [ From Monitor] Respiratory 26 H 24 Rate Blood Pressure 119/70 119/70 104/61 O2 Sat by Pulse 91 90 92 Oximetry 02/02/21 02/02/21 02/02/21 12:00 12:15 12:30 Temperature 97.9 F Pulse Rate 91 H 94 H 94 H Pulse Rate [ 82 From Monitor] Respiratory 22 24 25 H Rate Blood Pressure 108/58 109/62 120/68 O2 Sat by Pulse 93 92 93 Oximetry 02/02/21 02/02/21 02/02/21 12:45 13:00 13:15 Temperature Pulse Rate 114 H 97 H 93 H Pulse Rate [ From Monitor] Respiratory 25 H 21 23 Rate Blood Pressure 81/47 114/60 101/53 O2 Sat by Pulse 88 89 Oximetry 02/02/21 02/02/21 02/02/21 13:30 13:45 14:00 Temperature Pulse Rate 96 H 99 H 119 H Pulse Rate [ From Monitor] Respiratory 20 21 22 Rate Blood Pressure 95/56 100/61 95/69 O2 Sat by Pulse 88 90 90 Oximetry 02/02/21 02/02/21 02/02/21 14:15 14:30 14:45 Temperature Pulse Rate 103 H 103 H 103 H Pulse Rate [ From Monitor] Respiratory 19 22 21 Rate Blood Pressure 112/66 113/66 116/64 O2 Sat by Pulse 86 90 91 Oximetry 02/02/21 02/02/21 02/02/21 15:00 15:15 15:16 Temperature Pulse Rate 98 H 101 H 101 H Pulse Rate [ From Monitor] Respiratory 22 21 Rate Blood Pressure 107/64 102/65 102/65 O2 Sat by Pulse 91 91 92 Oximetry 02/02/21 02/02/21 15:30 15:45 Temperature Pulse Rate 103 H 103 H Pulse Rate [ From Monitor] Respiratory 22 22 Rate Blood Pressure 106/67 114/73 O2 Sat by Pulse 94 95 Oximetry Constitutional: comatose Eyes: non-icteric ENT: other (orally intubated, no sedation) Neck: supple Effort: normal Ascultation: Bilateral: diminished breath sounds Cardiovascular: irregular rhythm (no mrg) Gastrointestinal: normoactive bowel sounds, soft, non-distended Integumentary: normal Extremities: no edema, pulses normal Neurologic: unable to assess Psychiatric: other (unable to assess) CBC and BMP: 02/02/21 04:40 02/02/21 04:40 ABG, PT/INR, D-dimer: ABG ABG pH 7.266 (7.320-7.450) L 02/02/21 04:00 POC ABG pCO2 63.4 mmHg (32.0-48.0) H 02/02/21 04:00 POC ABG pO2 83.8 mmHg (83-108) 02/02/21 04:00 POC ABG HCO3 28.2 02/02/21 04:00 ABG O2 Saturation 94.7 (0-100) 02/02/21 04:00 PT/INR, D-dimer PT 14.2 Sec. (12.2-14.9) 01/28/21 10:01 INR 1.05 (0.87-1.13) 01/28/21 10:01 D-Dimer 229.34 ng/mlDDU (0-234) 01/20/21 23:20 Abnormal lab findings: Abnormal Labs 01/20/21 01/20/21 01/20/21 19:26 19:26 23:20 WBC RBC Hgb 15.3 H Hct 45.8 H MCV 98 H MCH 33 H MCHC RDW Lymph % (Auto) 5.2 L [place] % (Auto) 10.4 H Lymph # (Auto) 0.3 L Seg Neutrophils % 82.9 H Seg Neuts % (Manual) Lymphocytes % (Manual) Seg Neutrophils # Seg Neutrophils # Man Lymphocytes # (Manual) INR APTT ABG pH POC ABG pCO2 POC ABG pO2 ABG Hemoglobin ABG Oxyhemoglobin ABG Potassium ABG Glucose Carboxyhemoglobin Sodium Potassium Chloride 97.8 L Carbon Dioxide 33 H BUN Creatinine Glucose 127 H POC Glucose Calcium Phosphorus Magnesium Lactate Dehydrogenase 384 H C-Reactive Protein 2.70 H Albumin Triglycerides Cholesterol LDL Cholesterol Direct Arterial Blood Glucose Arterial Blood Ionized Calcium Urine Creatinine Urine Total Protein 01/21/21 01/21/21 01/21/21 00:17 05:45 05:45 WBC RBC Hgb 15.9 H Hct 47.9 H MCV 98 H MCH 33 H MCHC RDW 15.3 H Lymph % (Auto) [place] % (Auto) Lymph # (Auto) Seg Neutrophils % Seg Neuts % (Manual) 96.0 H Lymphocytes % (Manual) 3.0 L Seg Neutrophils # Seg Neutrophils # Man Lymphocytes # (Manual) 0.2 L INR APTT ABG pH POC ABG pCO2 POC ABG pO2 ABG Hemoglobin ABG Oxyhemoglobin ABG Potassium ABG Glucose Carboxyhemoglobin Sodium Potassium Chloride 96.2 L Carbon Dioxide 35 H BUN Creatinine 0.7 L Glucose 142 H POC Glucose 119 H Calcium Phosphorus Magnesium Lactate Dehydrogenase C-Reactive Protein Albumin Triglycerides Cholesterol 210 H LDL Cholesterol Direct 155 H Arterial Blood Glucose Arterial Blood Ionized Calcium Urine Creatinine Urine Total Protein 01/21/21 01/21/21 01/21/21 05:56 09:33 15:13 WBC RBC Hgb Hct 45.8 H MCV 98 H MCH MCHC RDW Lymph % (Auto) [place] % (Auto) Lymph # (Auto) Seg Neutrophils % Seg Neuts % (Manual) Lymphocytes % (Manual) Seg Neutrophils # Seg Neutrophils # Man Lymphocytes # (Manual) INR APTT ABG pH POC ABG pCO2 POC ABG pO2 ABG Hemoglobin ABG Oxyhemoglobin ABG Potassium ABG Glucose Carboxyhemoglobin Sodium Potassium Chloride Carbon Dioxide BUN Creatinine Glucose POC Glucose 147 H 153 H Calcium Phosphorus Magnesium Lactate Dehydrogenase C-Reactive Protein Albumin Triglycerides Cholesterol LDL Cholesterol Direct Arterial Blood Glucose Arterial Blood Ionized Calcium Urine Creatinine Urine Total Protein 01/21/21 01/21/21 01/22/21 15:13 16:33 01:53 WBC RBC Hgb Hct MCV MCH MCHC RDW Lymph % (Auto) [place] % (Auto) Lymph # (Auto) Seg Neutrophils % Seg Neuts % (Manual) Lymphocytes % (Manual) Seg Neutrophils # Seg Neutrophils # Man Lymphocytes # (Manual) INR 1.14 H APTT ABG pH POC ABG pCO2 POC ABG pO2 ABG Hemoglobin ABG Oxyhemoglobin ABG Potassium ABG Glucose Carboxyhemoglobin Sodium Potassium Chloride Carbon Dioxide BUN Creatinine Glucose POC Glucose 126 H 112 H Calcium Phosphorus Magnesium Lactate Dehydrogenase C-Reactive Protein Albumin Triglycerides Cholesterol LDL Cholesterol Direct Arterial Blood Glucose Arterial Blood Ionized Calcium Urine Creatinine Urine Total Protein 01/22/21 01/22/21 01/22/21 06:06 12:05 16:51 WBC RBC Hgb Hct MCV MCH MCHC RDW Lymph % (Auto) [place] % (Auto) Lymph # (Auto) Seg Neutrophils % Seg Neuts % (Manual) Lymphocytes % (Manual) Seg Neutrophils # Seg Neutrophils # Man Lymphocytes # (Manual) INR APTT ABG pH POC ABG pCO2 POC ABG pO2 ABG Hemoglobin ABG Oxyhemoglobin ABG Potassium ABG Glucose Carboxyhemoglobin Sodium Potassium Chloride Carbon Dioxide BUN Creatinine Glucose POC Glucose 107 H 121 H 164 H Calcium Phosphorus Magnesium Lactate Dehydrogenase C-Reactive Protein Albumin Triglycerides Cholesterol LDL Cholesterol Direct Arterial Blood Glucose Arterial Blood Ionized Calcium Urine Creatinine Urine Total Protein 01/22/21 01/23/21 01/23/21 23:10 05:39 06:08 WBC RBC Hgb Hct MCV 101 H MCH 33 H MCHC RDW Lymph % (Auto) [place] % (Auto) Lymph # (Auto) Seg Neutrophils % Seg Neuts % (Manual) Lymphocytes % (Manual) Seg Neutrophils # Seg Neutrophils # Man Lymphocytes # (Manual) INR APTT ABG pH POC ABG pCO2 POC ABG pO2 ABG Hemoglobin ABG Oxyhemoglobin ABG Potassium ABG Glucose Carboxyhemoglobin Sodium Potassium Chloride Carbon Dioxide BUN Creatinine Glucose POC Glucose 143 H 150 H Calcium Phosphorus Magnesium Lactate Dehydrogenase C-Reactive Protein Albumin Triglycerides Cholesterol LDL Cholesterol Direct Arterial Blood Glucose Arterial Blood Ionized Calcium Urine Creatinine Urine Total Protein 01/23/21 01/23/21 01/23/21 11:27 13:55 17:54 WBC RBC Hgb Hct MCV MCH MCHC RDW Lymph % (Auto) [place] % (Auto) Lymph # (Auto) Seg Neutrophils % Seg Neuts % (Manual) Lymphocytes % (Manual) Seg Neutrophils # Seg Neutrophils # Man Lymphocytes # (Manual) INR APTT ABG pH 7.249 L POC ABG pCO2 83.0 H POC ABG pO2 82.8 L ABG Hemoglobin ABG Oxyhemoglobin ABG Potassium 4.8 H ABG Glucose 236 H Carboxyhemoglobin Sodium Potassium Chloride Carbon Dioxide 33 H BUN 32 H Creatinine 1.6 H D Glucose 146 H POC Glucose 218 H Calcium 8.3 L Phosphorus Magnesium 3.00 H Lactate Dehydrogenase C-Reactive Protein Albumin 3.2 L Triglycerides Cholesterol LDL Cholesterol Direct Arterial Blood Glucose 236 H Arterial Blood Ionized Calcium 4.5 L Urine Creatinine Urine Total Protein 01/23/21 01/24/21 01/24/21 17:54 03:11 04:56 WBC RBC Hgb Hct MCV 100 H MCH MCHC RDW 15.4 H Lymph % (Auto) [place] % (Auto) Lymph # (Auto) Seg Neutrophils % Seg Neuts % (Manual) Lymphocytes % (Manual) Seg Neutrophils # Seg Neutrophils # Man Lymphocytes # (Manual) INR APTT ABG pH POC ABG pCO2 POC ABG pO2 ABG Hemoglobin ABG Oxyhemoglobin ABG Potassium ABG Glucose Carboxyhemoglobin Sodium Potassium Chloride Carbon Dioxide BUN Creatinine Glucose POC Glucose 131 H Calcium Phosphorus 2.00 L Magnesium Lactate Dehydrogenase C-Reactive Protein Albumin Triglycerides Cholesterol LDL Cholesterol Direct Arterial Blood Glucose Arterial Blood Ionized Calcium Urine Creatinine Urine Total Protein 01/24/21 01/24/21 01/24/21 04:56 05:00 05:47 WBC RBC Hgb Hct MCV MCH MCHC RDW Lymph % (Auto) [place] % (Auto) Lymph # (Auto) Seg Neutrophils % Seg Neuts % (Manual) Lymphocytes % (Manual) Seg Neutrophils # Seg Neutrophils # Man Lymphocytes # (Manual) INR APTT ABG pH 7.473 H POC ABG pCO2 POC ABG pO2 53.9 L ABG Hemoglobin ABG Oxyhemoglobin 90.0 L ABG Potassium ABG Glucose 127 H Carboxyhemoglobin Sodium 147 H D Potassium Chloride Carbon Dioxide 36 H BUN 33 H Creatinine 1.5 H Glucose 128 H POC Glucose 141 H Calcium 8.3 L Phosphorus Magnesium Lactate Dehydrogenase C-Reactive Protein Albumin Triglycerides Cholesterol LDL Cholesterol Direct Arterial Blood Glucose 127 H Arterial Blood Ionized Calcium 4.5 L Urine Creatinine Urine Total Protein 01/24/21 01/24/21 01/25/21 08:44 11:27 03:57 WBC RBC Hgb Hct MCV MCH MCHC RDW Lymph % (Auto) [place] % (Auto) Lymph # (Auto) Seg Neutrophils % Seg Neuts % (Manual) Lymphocytes % (Manual) Seg Neutrophils # Seg Neutrophils # Man Lymphocytes # (Manual) INR APTT ABG pH 7.515 H POC ABG pCO2 POC ABG pO2 70.5 L ABG Hemoglobin ABG Oxyhemoglobin ABG Potassium ABG Glucose 150 H Carboxyhemoglobin Sodium Potassium Chloride Carbon Dioxide BUN Creatinine Glucose POC Glucose 127 H Calcium Phosphorus 1.40 L D Magnesium 2.90 H Lactate Dehydrogenase C-Reactive Protein Albumin Triglycerides Cholesterol LDL Cholesterol Direct Arterial Blood Glucose 150 H Arterial Blood Ionized Calcium 4.4 L Urine Creatinine Urine Total Protein 01/25/21 01/25/21 01/25/21 04:35 04:35 05:07 WBC RBC Hgb Hct MCV 97 H MCH MCHC RDW 15.3 H Lymph % (Auto) [place] % (Auto) Lymph # (Auto) Seg Neutrophils % Seg Neuts % (Manual) Lymphocytes % (Manual) Seg Neutrophils # Seg Neutrophils # Man Lymphocytes # (Manual) INR APTT ABG pH POC ABG pCO2 POC ABG pO2 ABG Hemoglobin ABG Oxyhemoglobin ABG Potassium ABG Glucose Carboxyhemoglobin Sodium 147 H Potassium 3.5 L D Chloride Carbon Dioxide 37 H BUN 34 H Creatinine Glucose 127 H POC Glucose 117 H Calcium 8.1 L Phosphorus Magnesium Lactate Dehydrogenase C-Reactive Protein Albumin Triglycerides Cholesterol LDL Cholesterol Direct Arterial Blood Glucose Arterial Blood Ionized Calcium Urine Creatinine Urine Total Protein 01/25/21 01/25/21 01/25/21 11:15 12:39 17:37 WBC RBC Hgb Hct MCV MCH MCHC RDW Lymph % (Auto) [place] % (Auto) Lymph # (Auto) Seg Neutrophils % Seg Neuts % (Manual) Lymphocytes % (Manual) Seg Neutrophils # Seg Neutrophils # Man Lymphocytes # (Manual) INR APTT ABG pH POC ABG pCO2 POC ABG pO2 ABG Hemoglobin ABG Oxyhemoglobin ABG Potassium ABG Glucose Carboxyhemoglobin Sodium Potassium Chloride Carbon Dioxide BUN Creatinine Glucose POC Glucose 147 H 143 H 142 H Calcium Phosphorus Magnesium Lactate Dehydrogenase C-Reactive Protein Albumin Triglycerides Cholesterol LDL Cholesterol Direct Arterial Blood Glucose Arterial Blood Ionized Calcium Urine Creatinine Urine Total Protein 01/25/21 01/26/21 01/26/21 23:08 03:44 04:30 WBC RBC Hgb Hct MCV MCH MCHC RDW Lymph % (Auto) [place] % (Auto) Lymph # (Auto) Seg Neutrophils % Seg Neuts % (Manual) Lymphocytes % (Manual) Seg Neutrophils # Seg Neutrophils # Man Lymphocytes # (Manual) INR APTT ABG pH POC ABG pCO2 49.5 H POC ABG pO2 ABG Hemoglobin ABG Oxyhemoglobin ABG Potassium ABG Glucose 153 H Carboxyhemoglobin Sodium 149 H Potassium Chloride Carbon Dioxide 39 H BUN 35 H Creatinine Glucose 141 H POC Glucose 139 H Calcium 8.3 L Phosphorus Magnesium Lactate Dehydrogenase C-Reactive Protein Albumin Triglycerides Cholesterol LDL Cholesterol Direct Arterial Blood Glucose 153 H Arterial Blood Ionized Calcium 4.5 L Urine Creatinine Urine Total Protein 01/26/21 01/26/21 01/26/21 05:31 11:35 12:11 WBC RBC Hgb Hct MCV MCH MCHC RDW Lymph % (Auto) [place] % (Auto) Lymph # (Auto) Seg Neutrophils % Seg Neuts % (Manual) Lymphocytes % (Manual) Seg Neutrophils # Seg Neutrophils # Man Lymphocytes # (Manual) INR APTT ABG pH POC ABG pCO2 POC ABG pO2 ABG Hemoglobin ABG Oxyhemoglobin ABG Potassium ABG Glucose Carboxyhemoglobin Sodium Potassium Chloride Carbon Dioxide BUN Creatinine Glucose POC Glucose 143 H 145 H 161 H Calcium Phosphorus Magnesium Lactate Dehydrogenase C-Reactive Protein Albumin Triglycerides Cholesterol LDL Cholesterol Direct Arterial Blood Glucose Arterial Blood Ionized Calcium Urine Creatinine Urine Total Protein 01/26/21 01/26/21 01/26/21 12:12 18:01 23:22 WBC RBC Hgb Hct MCV MCH MCHC RDW Lymph % (Auto) [place] % (Auto) Lymph # (Auto) Seg Neutrophils % Seg Neuts % (Manual) Lymphocytes % (Manual) Seg Neutrophils # Seg Neutrophils # Man Lymphocytes # (Manual) INR APTT ABG pH POC ABG pCO2 POC ABG pO2 ABG Hemoglobin ABG Oxyhemoglobin ABG Potassium ABG Glucose Carboxyhemoglobin Sodium Potassium Chloride Carbon Dioxide BUN Creatinine Glucose POC Glucose 163 H 151 H 143 H Calcium Phosphorus Magnesium Lactate Dehydrogenase C-Reactive Protein Albumin Triglycerides Cholesterol LDL Cholesterol Direct Arterial Blood Glucose Arterial Blood Ionized Calcium Urine Creatinine Urine Total Protein 01/27/21 01/27/21 01/27/21 04:00 05:24 06:43 WBC RBC 3.45 L Hgb 11.1 L Hct 34.4 L MCV 100 H MCH MCHC RDW Lymph % (Auto) [place] % (Auto) Lymph # (Auto) Seg Neutrophils % Seg Neuts % (Manual) Lymphocytes % (Manual) Seg Neutrophils # Seg Neutrophils # Man Lymphocytes # (Manual) INR APTT ABG pH POC ABG pCO2 59.3 H POC ABG pO2 73.4 L ABG Hemoglobin ABG Oxyhemoglobin 93.2 L ABG Potassium ABG Glucose 178 H Carboxyhemoglobin Sodium Potassium Chloride Carbon Dioxide BUN Creatinine Glucose POC Glucose 152 H Calcium Phosphorus Magnesium Lactate Dehydrogenase C-Reactive Protein Albumin Triglycerides Cholesterol LDL Cholesterol Direct Arterial Blood Glucose 178 H Arterial Blood Ionized Calcium 4.4 L Urine Creatinine Urine Total Protein 01/27/21 01/27/21 01/27/21 06:43 11:35 16:39 WBC RBC Hgb Hct MCV MCH MCHC RDW Lymph % (Auto) [place] % (Auto) Lymph # (Auto) Seg Neutrophils % Seg Neuts % (Manual) Lymphocytes % (Manual) Seg Neutrophils # Seg Neutrophils # Man Lymphocytes # (Manual) INR APTT ABG pH POC ABG pCO2 POC ABG pO2 ABG Hemoglobin ABG Oxyhemoglobin ABG Potassium ABG Glucose Carboxyhemoglobin Sodium 148 H Potassium Chloride Carbon Dioxide 40 H BUN 40 H Creatinine Glucose 166 H POC Glucose 146 H 168 H Calcium Phosphorus Magnesium Lactate Dehydrogenase C-Reactive Protein Albumin Triglycerides Cholesterol LDL Cholesterol Direct Arterial Blood Glucose Arterial Blood Ionized Calcium Urine Creatinine Urine Total Protein 0601/28/21 01/28/21 23:14 03:29 04:51 WBC RBC Hgb Hct MCV MCH MCHC RDW Lymph % (Auto) [place] % (Auto) Lymph # (Auto) Seg Neutrophils % Seg Neuts % (Manual) Lymphocytes % (Manual) Seg Neutrophils # Seg Neutrophils # Man Lymphocytes # (Manual) INR APTT ABG pH POC ABG pCO2 57.3 H POC ABG pO2 67.1 L ABG Hemoglobin 11.8 L ABG Oxyhemoglobin 91.5 L ABG Potassium ABG Glucose 172 H Carboxyhemoglobin Sodium Potassium Chloride Carbon Dioxide BUN Creatinine Glucose POC Glucose 140 H 166 H Calcium Phosphorus Magnesium Lactate Dehydrogenase C-Reactive Protein Albumin Triglycerides Cholesterol LDL Cholesterol Direct Arterial Blood Glucose 172 H Arterial Blood Ionized Calcium 4.4 L Urine Creatinine Urine Total Protein 01/28/21 01/28/21 01/28/21 05:51 05:51 10:01 WBC RBC 3.39 L Hgb 11.1 L Hct 33.9 L MCV 100 H MCH 33 H MCHC RDW Lymph % (Auto) [place] % (Auto) Lymph # (Auto) Seg Neutrophils % Seg Neuts % (Manual) Lymphocytes % (Manual) Seg Neutrophils # Seg Neutrophils # Man Lymphocytes # (Manual) INR APTT 42.8 H ABG pH POC ABG pCO2 POC ABG pO2 ABG Hemoglobin ABG Oxyhemoglobin ABG Potassium ABG Glucose Carboxyhemoglobin Sodium Potassium Chloride Carbon Dioxide 36 H BUN 46 H Creatinine 1.4 H Glucose 157 H POC Glucose Calcium Phosphorus Magnesium Lactate Dehydrogenase C-Reactive Protein Albumin Triglycerides Cholesterol LDL Cholesterol Direct Arterial Blood Glucose Arterial Blood Ionized Calcium Urine Creatinine Urine Total Protein 01/28/21 01/28/21 01/28/21 10:01 11:14 17:36 WBC RBC Hgb Hct MCV MCH MCHC RDW Lymph % (Auto) [place] % (Auto) Lymph # (Auto) Seg Neutrophils % Seg Neuts % (Manual) Lymphocytes % (Manual) Seg Neutrophils # Seg Neutrophils # Man Lymphocytes # (Manual) INR APTT ABG pH POC ABG pCO2 POC ABG pO2 ABG Hemoglobin ABG Oxyhemoglobin ABG Potassium ABG Glucose Carboxyhemoglobin Sodium Potassium Chloride Carbon Dioxide BUN Creatinine 1.4 H Glucose POC Glucose 157 H 127 H Calcium Phosphorus Magnesium Lactate Dehydrogenase C-Reactive Protein Albumin Triglycerides Cholesterol LDL Cholesterol Direct Arterial Blood Glucose Arterial Blood Ionized Calcium Urine Creatinine Urine Total Protein 01/28/21 01/29/21 01/29/21 23:18 02:52 04:53 WBC RBC Hgb Hct MCV MCH MCHC RDW Lymph % (Auto) [place] % (Auto) Lymph # (Auto) Seg Neutrophils % Seg Neuts % (Manual) Lymphocytes % (Manual) Seg Neutrophils # Seg Neutrophils # Man Lymphocytes # (Manual) INR APTT ABG pH POC ABG pCO2 72.6 H POC ABG pO2 58.0 L ABG Hemoglobin 11.6 L ABG Oxyhemoglobin 86.5 L ABG Potassium ABG Glucose 179 H Carboxyhemoglobin Sodium Potassium Chloride Carbon Dioxide BUN Creatinine Glucose POC Glucose 146 H 146 H Calcium Phosphorus Magnesium Lactate Dehydrogenase C-Reactive Protein Albumin Triglycerides Cholesterol LDL Cholesterol Direct Arterial Blood Glucose 179 H Arterial Blood Ionized Calcium 4.4 L Urine Creatinine Urine Total Protein 01/29/21 01/29/21 01/29/21 07:03 07:03 11:14 WBC RBC 3.29 L Hgb 10.6 L Hct 32.4 L MCV 99 H MCH MCHC RDW Lymph % (Auto) [place] % (Auto) Lymph # (Auto) Seg Neutrophils % Seg Neuts % (Manual) Lymphocytes % (Manual) Seg Neutrophils # Seg Neutrophils # Man Lymphocytes # (Manual) INR APTT ABG pH POC ABG pCO2 POC ABG pO2 ABG Hemoglobin ABG Oxyhemoglobin ABG Potassium ABG Glucose Carboxyhemoglobin Sodium Potassium Chloride 97.6 L Carbon Dioxide 36 H BUN 63 H Creatinine 1.8 H Glucose 180 H POC Glucose 162 H Calcium Phosphorus Magnesium Lactate Dehydrogenase C-Reactive Protein Albumin Triglycerides 157 H Cholesterol LDL Cholesterol Direct Arterial Blood Glucose Arterial Blood Ionized Calcium Urine Creatinine Urine Total Protein 01/29/21 01/29/21 01/29/21 14:13 14:37 17:54 WBC RBC Hgb 10.5 L Hct 32.7 L MCV MCH MCHC RDW Lymph % (Auto) [place] % (Auto) Lymph # (Auto) Seg Neutrophils % Seg Neuts % (Manual) Lymphocytes % (Manual) Seg Neutrophils # Seg Neutrophils # Man Lymphocytes # (Manual) INR APTT ABG pH POC ABG pCO2 66.4 H POC ABG pO2 ABG Hemoglobin 11.3 L ABG Oxyhemoglobin ABG Potassium ABG Glucose 174 H Carboxyhemoglobin 0.3 L Sodium Potassium Chloride Carbon Dioxide BUN Creatinine Glucose POC Glucose 148 H Calcium Phosphorus Magnesium Lactate Dehydrogenase C-Reactive Protein Albumin Triglycerides Cholesterol LDL Cholesterol Direct Arterial Blood Glucose 174 H Arterial Blood Ionized Calcium 4.4 L Urine Creatinine Urine Total Protein 01/29/21 01/30/21 01/30/21 22:48 00:24 03:14 WBC RBC Hgb 10.2 L Hct 31.1 L MCV MCH MCHC RDW Lymph % (Auto) [place] % (Auto) Lymph # (Auto) Seg Neutrophils % Seg Neuts % (Manual) Lymphocytes % (Manual) Seg Neutrophils # Seg Neutrophils # Man Lymphocytes # (Manual) INR APTT ABG pH POC ABG pCO2 56.1 H POC ABG pO2 ABG Hemoglobin 11.0 L ABG Oxyhemoglobin ABG Potassium ABG Glucose 120 H Carboxyhemoglobin 0.3 L Sodium Potassium Chloride Carbon Dioxide BUN Creatinine Glucose POC Glucose 133 H Calcium Phosphorus Magnesium Lactate Dehydrogenase C-Reactive Protein Albumin Triglycerides Cholesterol LDL Cholesterol Direct Arterial Blood Glucose 120 H Arterial Blood Ionized Calcium 4.5 L Urine Creatinine Urine Total Protein 01/30/21 01/30/21 01/30/21 05:32 07:20 07:20 WBC 11.6 H RBC 3.27 L Hgb 10.1 L Hct 32.1 L MCV 98 H MCH MCHC 31 L RDW Lymph % (Auto) 3.9 L [place] % (Auto) Lymph # (Auto) 0.5 L Seg Neutrophils % 88.8 H Seg Neuts % (Manual) Lymphocytes % (Manual) Seg Neutrophils # 10.3 H Seg Neutrophils # Man Lymphocytes # (Manual) INR APTT ABG pH POC ABG pCO2 POC ABG pO2 ABG Hemoglobin ABG Oxyhemoglobin ABG Potassium ABG Glucose Carboxyhemoglobin Sodium 147 H Potassium Chloride Carbon Dioxide 36 H BUN 89 H Creatinine 2.8 H D Glucose 126 H POC Glucose 115 H Calcium Phosphorus Magnesium Lactate Dehydrogenase C-Reactive Protein Albumin Triglycerides Cholesterol LDL Cholesterol Direct Arterial Blood Glucose Arterial Blood Ionized Calcium Urine Creatinine Urine Total Protein 01/30/21 01/30/21 01/30/21 11:33 15:35 15:38 WBC RBC Hgb 10.2 L Hct 31.7 L MCV MCH MCHC RDW Lymph % (Auto) [place] % (Auto) Lymph # (Auto) Seg Neutrophils % Seg Neuts % (Manual) Lymphocytes % (Manual) Seg Neutrophils # Seg Neutrophils # Man Lymphocytes # (Manual) INR APTT ABG pH POC ABG pCO2 56.7 H POC ABG pO2 67.7 L ABG Hemoglobin 10.7 L ABG Oxyhemoglobin 91.0 L ABG Potassium 4.6 H ABG Glucose 152 H Carboxyhemoglobin Sodium Potassium Chloride Carbon Dioxide BUN Creatinine Glucose POC Glucose 143 H Calcium Phosphorus Magnesium Lactate Dehydrogenase C-Reactive Protein Albumin Triglycerides Cholesterol LDL Cholesterol Direct Arterial Blood Glucose 152 H Arterial Blood Ionized Calcium 4.4 L Urine Creatinine Urine Total Protein 01/30/21 01/30/21 01/30/21 16:26 23:10 23:32 WBC RBC Hgb 9.9 L Hct 29.5 L MCV MCH MCHC RDW Lymph % (Auto) [place] % (Auto) Lymph # (Auto) Seg Neutrophils % Seg Neuts % (Manual) Lymphocytes % (Manual) Seg Neutrophils # Seg Neutrophils # Man Lymphocytes # (Manual) INR APTT ABG pH POC ABG pCO2 POC ABG pO2 ABG Hemoglobin ABG Oxyhemoglobin ABG Potassium ABG Glucose Carboxyhemoglobin Sodium Potassium Chloride Carbon Dioxide BUN Creatinine Glucose POC Glucose 146 H 143 H Calcium Phosphorus Magnesium Lactate Dehydrogenase C-Reactive Protein Albumin Triglycerides Cholesterol LDL Cholesterol Direct Arterial Blood Glucose Arterial Blood Ionized Calcium Urine Creatinine Urine Total Protein 01/30/21 01/31/21 01/31/21 Unknown 05:00 05:45 WBC RBC Hgb Hct MCV MCH MCHC RDW Lymph % (Auto) [place] % (Auto) Lymph # (Auto) Seg Neutrophils % Seg Neuts % (Manual) Lymphocytes % (Manual) Seg Neutrophils # Seg Neutrophils # Man Lymphocytes # (Manual) INR APTT ABG pH POC ABG pCO2 55.0 H POC ABG pO2 73.2 L ABG Hemoglobin 10.6 L ABG Oxyhemoglobin 92.6 L ABG Potassium 4.7 H ABG Glucose 155 H Carboxyhemoglobin Sodium 146 H Potassium Chloride Carbon Dioxide 36 H BUN 118 H Creatinine 5.2 H D Glucose 146 H POC Glucose Calcium 8.1 L Phosphorus Magnesium Lactate Dehydrogenase C-Reactive Protein Albumin Triglycerides Cholesterol LDL Cholesterol Direct Arterial Blood Glucose 155 H Arterial Blood Ionized Calcium 4.2 L Urine Creatinine 132.3 H Urine Total Protein 504 H 01/31/21 01/31/21 01/31/21 05:57 11:18 17:25 WBC RBC Hgb Hct MCV MCH MCHC RDW Lymph % (Auto) [place] % (Auto) Lymph # (Auto) Seg Neutrophils % Seg Neuts % (Manual) Lymphocytes % (Manual) Seg Neutrophils # Seg Neutrophils # Man Lymphocytes # (Manual) INR APTT ABG pH POC ABG pCO2 POC ABG pO2 ABG Hemoglobin ABG Oxyhemoglobin ABG Potassium ABG Glucose Carboxyhemoglobin Sodium Potassium Chloride Carbon Dioxide BUN Creatinine Glucose POC Glucose 138 H 131 H 138 H Calcium Phosphorus Magnesium Lactate Dehydrogenase C-Reactive Protein Albumin Triglycerides Cholesterol LDL Cholesterol Direct Arterial Blood Glucose Arterial Blood Ionized Calcium Urine Creatinine Urine Total Protein 01/31/21 02/01/21 02/01/21 23:07 03:44 05:16 WBC RBC Hgb Hct MCV MCH MCHC RDW Lymph % (Auto) [place] % (Auto) Lymph # (Auto) Seg Neutrophils % Seg Neuts % (Manual) Lymphocytes % (Manual) Seg Neutrophils # Seg Neutrophils # Man Lymphocytes # (Manual) INR APTT ABG pH 7.292 L POC ABG pCO2 61.1 H POC ABG pO2 ABG Hemoglobin 9.7 L ABG Oxyhemoglobin ABG Potassium 5.4 H ABG Glucose 145 H Carboxyhemoglobin Sodium Potassium Chloride Carbon Dioxide BUN Creatinine Glucose POC Glucose 124 H 130 H Calcium Phosphorus Magnesium Lactate Dehydrogenase C-Reactive Protein Albumin Triglycerides Cholesterol LDL Cholesterol Direct Arterial Blood Glucose 145 H Arterial Blood Ionized Calcium 4.1 L Urine Creatinine Urine Total Protein 02/01/21 02/01/21 02/01/21 07:15 07:15 11:45 WBC 14.0 H RBC 2.72 L Hgb 8.9 L Hct 26.3 L MCV 97 H MCH 33 H MCHC RDW Lymph % (Auto) [place] % (Auto) Lymph # (Auto) Seg Neutrophils % Seg Neuts % (Manual) Lymphocytes % (Manual) Seg Neutrophils # Seg Neutrophils # Man Lymphocytes # (Manual) INR APTT ABG pH POC ABG pCO2 POC ABG pO2 ABG Hemoglobin ABG Oxyhemoglobin ABG Potassium ABG Glucose Carboxyhemoglobin Sodium Potassium 5.6 H Chloride Carbon Dioxide 31 H BUN 165 H Creatinine 8.4 H D Glucose 128 H POC Glucose 119 H Calcium 8.3 L Phosphorus Magnesium Lactate Dehydrogenase C-Reactive Protein Albumin Triglycerides Cholesterol LDL Cholesterol Direct Arterial Blood Glucose Arterial Blood Ionized Calcium Urine Creatinine Urine Total Protein 02/01/21 02/01/21 02/02/21 17:25 22:33 04:00 WBC RBC Hgb Hct MCV MCH MCHC RDW Lymph % (Auto) [place] % (Auto) Lymph # (Auto) Seg Neutrophils % Seg Neuts % (Manual) Lymphocytes % (Manual) Seg Neutrophils # Seg Neutrophils # Man Lymphocytes # (Manual) INR APTT ABG pH 7.266 L POC ABG pCO2 63.4 H POC ABG pO2 ABG Hemoglobin 9.3 L ABG Oxyhemoglobin 93.8 L ABG Potassium 5.4 H ABG Glucose 147 H Carboxyhemoglobin Sodium Potassium Chloride Carbon Dioxide BUN Creatinine Glucose POC Glucose 138 H 155 H Calcium Phosphorus Magnesium Lactate Dehydrogenase C-Reactive Protein Albumin Triglycerides Cholesterol LDL Cholesterol Direct Arterial Blood Glucose 147 H Arterial Blood Ionized Calcium 4.1 L Urine Creatinine Urine Total Protein 02/02/21 02/02/21 02/02/21 04:40 04:40 04:40 WBC 15.3 H RBC 2.65 L Hgb 8.5 L Hct 26.5 L MCV 100 H MCH MCHC RDW Lymph % (Auto) [place] % (Auto) Lymph # (Auto) Seg Neutrophils % Seg Neuts % (Manual) 96.0 H Lymphocytes % (Manual) 3.0 L Seg Neutrophils # Seg Neutrophils # Man 14.7 H Lymphocytes # (Manual) 0.5 L INR APTT ABG pH POC ABG pCO2 POC ABG pO2 ABG Hemoglobin ABG Oxyhemoglobin ABG Potassium ABG Glucose Carboxyhemoglobin Sodium Potassium 5.5 H Chloride 97.0 L Carbon Dioxide BUN 122 H Creatinine 7.6 H Glucose 134 H POC Glucose 124 H Calcium Phosphorus Magnesium Lactate Dehydrogenase C-Reactive Protein Albumin Triglycerides Cholesterol LDL Cholesterol Direct Arterial Blood Glucose Arterial Blood Ionized Calcium Urine Creatinine Urine Total Protein 02/02/21 02/02/21 11:31 14:21 WBC RBC Hgb Hct MCV MCH MCHC RDW Lymph % (Auto) [place] % (Auto) Lymph # (Auto) Seg Neutrophils % Seg Neuts % (Manual) Lymphocytes % (Manual) Seg Neutrophils # Seg Neutrophils # Man Lymphocytes # (Manual) INR APTT ABG pH POC ABG pCO2 POC ABG pO2 ABG Hemoglobin ABG Oxyhemoglobin ABG Potassium ABG Glucose Carboxyhemoglobin Sodium Potassium Chloride Carbon Dioxide BUN Creatinine Glucose POC Glucose 144 H Calcium Phosphorus Magnesium 3.50 H Lactate Dehydrogenase C-Reactive Protein Albumin Triglycerides Cholesterol LDL Cholesterol Direct Arterial Blood Glucose Arterial Blood Ionized Calcium Urine Creatinine Urine Total Protein Chest x-ray: report reviewed, image reviewed (bilateral infiltrates) Allied health notes reviewed: nursing
[2021-02-02] MEDS ORDERED: SODIUM POLYSTYRENE 15 GM/60 ML ORAL LIQD PO ONE (17:05)
[2021-02-02] MEDS ORDERED: INSULIN REGULAR, HUMAN 100 UNITS/1 ML IV ONE (17:06)
[2021-02-02] MEDS ORDERED: DEXTROSE 50% IN WATER (25GM) 50 ML SYRINGE IV ONE (17:06)
[2021-02-02] MEDS: MEROPENEM/NS 1 GRAM/100 ML 1 GRAM/100 ML BAG IV SCH (17:43)
[2021-02-03] MEDS: INSULIN LISPRO 100 UNIT/ML SUB-Q SCH ×2 (00:09→06:28)
[2021-02-03] MEDS: NORepinephrine/NS 4 MG-250 ML 4 MG/250 ML BAG IV SCH ×3 (00:46→08:38)
[2021-02-03] MEDS: VASOPRESSIN 20 UNIT in SODIUM CHLORIDE 0.9% 100 ML IV SCH (03:33)
[2021-02-03] MEDS: ACETAMINOPHEN 650 MG RECT SUPP PR PRN (04:31)
[2021-02-03 06:09] LABS: Hematocrit 28.5 % (35.5-45.6); Mean Corpuscular HGB Conc 31 % (32-34); Mean Corpuscular Volume 102 fl (84-94); Platelet Count 363 K/mm3 (140-440); Red Cell Distribution Width 15.8 % (13.2-15.2)
[2021-02-03] MEDS ORDERED: CALCIUM CHLORIDE 1,000 MG/10 ML SYRINGE IV ONE ×2 (06:26→14:10)
[2021-02-03] MEDS ORDERED: DEXTROSE 50% IN WATER (25GM) 50 ML SYRINGE IV ONE ×3 (06:26→14:10)
[2021-02-03] MEDS ORDERED: EPINEPHrine 1 MG/10 ML SYRINGE ONE ×2 (06:26→14:10)
[2021-02-03] MEDS ORDERED: SODIUM CHLORIDE 0.9% 100 ML IVPB ONE (06:26)
[2021-02-03] MEDS ORDERED: AMIODARONE 150 MG/3 ML INJ IV ONE (06:26)
[2021-02-03] MEDS ORDERED: SODIUM BICARB 8.4% 50 MEQ/50 ML SYRINGE IV ONE ×4 (06:26→14:10)
[2021-02-03] MEDS ORDERED: CALCIUM GLUCONATE 2,000 MG in SODIUM CHLORIDE 0.9% 100 ML IV ONE (07:00)
[2021-02-03] MEDS ORDERED: INSULIN REGULAR, HUMAN 100 UNITS/1 ML IV ONE (07:45)
[2021-02-03 09:28] VITALS: BP 99/59
[2021-02-03] MEDS ORDERED: SODIUM POLYSTYRENE 15 GM/60 ML ORAL LIQD PO ONE (09:31)
[2021-02-03] MEDS: PANTOPRAZOLE 40 MG INJ IV SCH (10:07)
[2021-02-03] MEDS: DOCUSATE SODIUM 100 MG/10 ML ORAL LIQD FEEDTUBE SCH (10:08)
[2021-02-03] MEDS ORDERED: SODIUM CHLORIDE 0.9% 1000 ML IV SOLN ONE (10:38)
[2021-02-03] MEDS ORDERED: SODIUM CHLORIDE 0.9% 500 ML IVPB ONE (10:38)
[2021-02-03] MEDS ORDERED: AMIODARONE 900 MG in DEXTROSE 5% IN WATER 482 ML IV SCH (11:00)
[2021-02-03] MEDS ORDERED: VANCOMYCIN 2,000 MG in SODIUM CHLORIDE 0.9% 500 ML 500 ML IV ONE (11:00)
[2021-02-03 11:08] LABS: Calcium 9.4 mg/dL (8.4-10.2)
--- NOTE | 2021-02-03 11:10 | XRay Report ---
CHEST 1 VIEW 02/03/2021 10:49 AM INDICATION / CLINICAL INFORMATION: psot cardiac arrest. COMPARISON: 01/30/2021 FINDINGS: SUPPORT DEVICES: Endotracheal tube tip terminates at the level of the clavicles, satisfactory positio n. Enteric tube is poorly visualized on this examination. HEART / MEDIASTINUM: Stable. LUNGS / PLEURA: Interval improvement in pulmonary airspace disease with near complete resolution in t he left lung and mild-moderate diffuse disease remaining on the right. No pneumothorax. ADDITIONAL FINDINGS: No significant additional findings. IMPRESSION: 1. Interval improvement in the appearance of the lungs. 2. Satisfactory appearance of the endotracheal tube. Signer Name: Homero East MD Signed: 02/03/2021 11:06 AM Workstation Name: [id number]
--- NOTE | 2021-02-03 11:20 | Progress Note ---
Assessment and Plan ECG reviewed - AF, no acute ischemic changes. Continue volume optimization via HD. Recommend PRN correction of electrolytes. Pt remains in AF post-arrest with well-controlled rate. May utilize Amiodarone gtt if rate increases and sustains > 130 bpm. Recommend resumption of anticoagulation if no contraindications, as no further evidence of bleeding noted and H/H appears to be stable. Guarded prognosis. Will follow. Pt seen in conjunction with Dr. Pizano, who agrees with the assessment and plan of care. - Patient Problems (1) Cardiac arrest Current Visit: Yes Status: Acute (2) Acute CVA (cerebrovascular accident) Current Visit: Yes Status: Acute (3) Acute respiratory failure Current Visit: Yes Status: Acute (4) Sepsis Current Visit: Yes Status: Acute (5) Pneumonia Current Visit: Yes Status: Acute (6) [place] (acute kidney injury) Current Visit: Yes Status: Acute (7) Anemia Current Visit: Yes Status: Acute (8) Epistaxis Current Visit: Yes Status: Acute (9) GI bleed Current Visit: Yes Status: Acute (10) Atrial fibrillation Current Visit: Yes Status: Acute Qualifiers: Atrial fibrillation type: persistent (not longstanding) Qualified Code(s): I48.19 - Other persistent atrial fibrillation; I48.1 - Persistent atrial fibrillation (11) Pulmonary HTN Current Visit: Yes Status: Chronic (12) HTN (hypertension) Current Visit: No Status: Chronic Qualifiers: Hypertension type: essential hypertension Qualified Code(s): I10 - Essential (primary) hypertension (13) DM2 (diabetes mellitus, type 2) Current Visit: Yes Status: Chronic (14) Seizure Current Visit: Yes Status: Chronic Subjective Date of service: 02/03/21 Principal diagnosis: CVA Interval history: No acute events overnight. Remains on Levo gtt. Tele reviewed - AF 80s - low 100s, no events overnight. Objective Last Vital Signs Temp 102.8 F H 02/03/21 07:00 Pulse 111 H 02/03/21 09:15 Resp 36 H 02/03/21 09:15 BP 99/59 02/03/21 09:15 Pulse Ox 92 02/03/21 09:15 - Physical Examination General: Other (intubated) HEENT: Positive: Normocephaly Neck: Negative: JVD/HJR Cardiac: Positive: Reg Rate and Rhythm, S1/S2 Lungs: Positive: Other (coarse anteriorly) Neuro: Positive: Other (intubated) Abdomen: Positive: Firm Skin: Negative: Rash Musculoskeletal: No Fluid Collection Extremities: Present: lower extr. pulses, edema, warm - Labs and Meds CBC 02/03/21 Range/Units 05:44 WBC 23.7 H (4.5-11.0) K/mm3 RBC 2.80 L (3.65-5.03) M/mm3 Hgb 9.0 L (11.8-15.2) gm/dl Hct 28.5 L (35.5-45.6) % Plt Count 363 (140-440) K/mm3 Comprehensive Metabolic Panel 02/03/21 02/03/21 Range/Units 05:44 Unknown Sodium 145 145 (137-145) mmol/L Potassium 6.7 H* D 5.6 H (3.6-5.0) mmol/L Chloride 101.7 100.0 (98-107) mmol/L Carbon Dioxide 24 28 (22-30) mmol/L BUN 99 H 103 H (9-20) mg/dL Creatinine 7.2 H 8.1 H (0.8-1.3) mg/dL Glucose 181 H 248 H (75-100) mg/dL Calcium 8.0 L 9.4 D (8.4-10.2) mg/dL - Imaging and Cardiology EKG: report reviewed, image reviewed Echo: report reviewed (01/23/2021 - mild LVH, EF 50-55%, mod pulm HTN w/RVSP 53 mmHg, mod RA enlargement, mild RV enlargement with TR) - Telemetry EKG Rhythm: Atrial Fibrillation - EKG Supraventricular dysrhythmia: atrial fibrillation Repolarization changes or abnormalities: nonspecific abnormality, ST segment, and/or T wave - Allied health notes Allied health notes reviewed: nursing
--- NOTE | 2021-02-03 11:51 | Event Note ---
Date: 02/03/21 Patient went into cardiac arrest three times this am. Patient was already on levophed and vasopressin. 1st cardiac arrest was at 10;16 - ACLS started and he received epi, bicarb, calcium according to protocol. pulse was regained. He coded 2nd time at 10:45, again ACLS started, please see code sheet for details. We were able to get his pulse back. Around 10:58 patient coded again and ACLS immediately initiated. he received multiple doses of epinephrene, bicarbonate, calcium and one around of d50. Another pressor initiated. But we were unable to get his pulse back. He was then pronounced around 11:15am. family was informed by me by phone call. I also spoke with them at the waiting room when they reached here. I offered my condolence. CC time >60 minutes
[2021-02-03] MEDS ORDERED: EPINEPHrine 1 MG/1 ML 8 MG in SODIUM CHLORIDE 0.9% 250ML 242 ML IV SCH (12:00)
--- NOTE | 2021-02-03 16:23 | Death Summary ---
Summary - Providers Date of service: 02/03/21 Consults: 01/20/21 23:39 Consult to Dietitian/Nutrition [CONS] Routine Physician Instructions: Reason For Exam: Reason for Consult: Diet education Occupational Therapy Evaluate and Treat [CONS] Routine Comment: Reason For Exam: Neuro deficits Physical Therapy Evaluation and Treat [CONS] Routine Comment: Reason For Exam: Neuro deficits 01/22/21 11:42 Consult to Physician [CONS] Routine Comment: Consulting Provider: SHANTI WALKER Physician Instructions: Reason For Exam: ?CVA/Afib/Rt parietal lobe density[CT head] 01/23/21 11:33 PICC Line Insertion [Consult to PICC Line RN] [CONS] Urgent Reason For Exam: IV access/Levophed Type Line:: PICC 01/23/21 11:44 Consult to Physician [CONS] Routine Comment: noted/ elba Consulting Provider: VISHAL CLARK Physician Instructions: Reason For Exam: Ac resp failure intubated/ Pulmonary/CC consult 01/23/21 12:22 Consult to Physician [CONS] Routine Comment: Consulting Provider: VISHAL CLARK Physician Instructions: Reason For Exam: Ac resp failure intubated /Pul/CC onsult Consult to Physician [CONS] Routine Comment: huong Davis/ elba Consulting Provider: ANITA SUÁREZ Physician Instructions: Reason For Exam: h/o A. fib/acute CVA 01/24/21 07:38 Consult to Dietitian/Nutrition [CONS] Routine Physician Instructions: Reason For Exam: Reason for Consult: Write/Manage Tube Feeding 01/28/21 11:51 Consult to Physician [CONS] Routine Comment: dr. holloway habilitation assistant/elba Consulting Provider: VIVIAN SKINNER Physician Instructions: Reason For Exam: Fever,pneumonia 01/29/21 13:20 Consult to Physician [CONS] Routine Comment: called office/ elba Consulting Provider: ANETTE JEFF Physician Instructions: Reason For Exam: GI bleed 01/30/21 10:08 Consult to Physician [CONS] Routine Comment: dr. toledo saw patient/ elba Consulting Provider: LIZA TOLEDO Physician Instructions: Reason For Exam: bob Attending: ELDER PANTOJA - summary Date of admission: 01/22/21 11:58 Date of : 02/03/21 Significant findings: Brief History: This is a 65-year-old male with atrial fibrillation on Eliquis, hypertension, and diabetes who presents to the emergency on 01/20 with complaints of progressive generalized weakness, gait unsteadiness, cough and fever. Upon EMS arrival patient was febrile with a temperature of 102 and hypoxic with SPO2 in the 70s on room air. Work-up in the emergency department included a CT scan of his chest which showed possible mild inflammatory process in his right middle and lower lobe, CT head was admitted secondary to artifact but noted a low- density area in the right parietal lobe. Patient was admitted to the hospitalist service with suspected pneumonia, acute hypoxic respiratory failure, COVID-19 PUI, rule out CVA and with hypertensive urgency. Neurology was consulted. repeat CT head on 01/28/21 showed remote right MCA infarction.. Daily clinical course: 01/22/2021; neuro work-up is in progress, follow PT OT evmillicent. Neurology consult, continue antibiotics and supportive care 01/23/2021; patient went into acute respiratory failure requiring intubation and ventilatory support. Patient is transferred to ICU, pulmonary critical consulted, hypotensive started on Levophed. Pulmonary critical, cardiology and neurology following the patient. updated by Dr. Cho 01/24: Patient is awaiting further neuro imaging and is restrained the time my examination. Patient is not sedated and on assist control tidal volume 500, rate of 24, PEEP of 8 on FiO2 70%. Patient is severely agitated and is started on propofol drip per [facility]. He has hypophosphatemia today which was repleted. We will repeat BMP and phosphate level in the a.m. 01/25: Patient has hypokalemia today which was repleted today. Cr decreased to 1.2 from 1.5. Hypophosphatemia is resolved. Awaiting MRI brain. Sedated with propofol and on AC TV 500, R 20, PEEP 10, on FiO2 80%. Levophed was off at the time of my examination. Awaiting MRI . 01/26: The time my examination patient is sedated on propofol and this morning he has worsening hypernatremia and creatinine. The time examination patient is on assist control tidal volume 500, rate of 16, PEEP of 10 and 80% FiO2. Patient will follow commands with sedation vacation. Neurology ordered a repeat CT head bleed to assess if patient can be restarted on p.o. anticoagulation. We will increase the water flushes. 01/27: CT Head obtained yesterday shows evidence of remote right MCA infarct. Patient remains sedated with Propofol and on MV AC TV 500, R 16, PEEP 10 and FiO2 80%. Bowel regimen started, will continue to trend CBC/BMP. 01/28 Patient with acute respiratory failure, afib, hypertension. Remote right MCA stroke seen on CT Head done on 01/26. Neurology following. Completed Rocephin and Zithromax for pneumonia 01/29: Noted coffee-ground discharges from [facility] today, hold any heparin product and aspirin. Started on Protonix drip. Monitor H&H every 8 hours consulted GI. Hold tube feeding for now. -POssible LLL opacity, given hypoxia and fevers ID started trial of cefepime. Likely could be central component from CVA. 01/30: Noted to have recurrent nose bleed from left nostrils. discussed with RN to apply epinephrine spray and nasal packing. Continue to monitor H&H. Continue PPI. Creatinine trending up consulted nephrology, also started on half-normal saline. Monitor BMP. GI recommended conservative management. Continue to follow. Pt with Sepsis with POssible LLL PNA, given hypoxia and fevers ID started trial of cefepime. Fever Likely could be central component from CVA. 01/31: Renal function cont to decline with elevated Cr/BUN. Placed vascath, planned to HD. updated family by dr Clark. Patient remains mechanical ventilation. Per ID cefepime escalate to vancomycin/meropenem for now, though if no response will have to assume non-infectious etiology. 02/01: Patient require urgent hemodialysis due to significant decline in the renal function, oliguria and hyperkalemia. But unable to reach out to family. HD will be initiated on HD for medical necessity. POssible LLL PNA, given hypoxia and fevers ID started trial of cefepime then escalate to vancomycin/meropenem. Fever Likely could be also central component from CVA. 02/02: Patient had cardiac arrest this am, resuscitated with ACLS protocol. family updated at the bedside. remains on mechanical ventilation. Cont empiric abx. Pt remains in AF post-arrest with well-controlled rate. May utilize Amiodarone gtt if rate increases and sustains > 130 bpm. Patient is very high risk for bleeding - has very recent epistaxis and h/h trending down. Also with recent CVA. will follow closely. 02/03; Patient went into cardiac arrest three times this am. Patient was already on levophed and vasopressin. 1st cardiac arrest was at 10;16 - ACLS started and he received epi, bicarb, calcium according to protocol. pulse was regained. He coded 2nd time at 10:45, again ACLS started, please see code sheet for details. We were able to get his pulse back. Around 10:58 patient coded again and ACLS immediately initiated. he received multiple doses of epinephrene, bicarbonate, calcium and one around of d50. Another pressor initiated. But ROSC not achieved. He was then pronounced around 11:15am. family was informed by me by phone call. I also spoke with them at the waiting room when they reached here. I offered my condolence. Cause of : Cardiorespiratory arrest due to severe sepsis, acute respiratory failure with aspiration PNA, Acute renal failure with electrolytes imbalance, remote CVA.
--- NOTE | 2021-02-07 12:58 | Electrocardiograph Report ---
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
--- NOTE | 2021-02-07 13:00 | Electrocardiograph Report ---
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
== END 2021-02-03 12:00 | DRG 870 ==
LOC: ED 18:34 → 3A 23:06 → OBSVTOIN 01-22 11:58 → CC1 01-23 11:07
PROVIDERS: ADMIT Hospitalist; ATTEND Internal Medicine
PROC: 5A1955Z Respiratory Ventilation, Greater than 96 Consecutive Hours (ICD-10-PCS; 2021-01-23)
PROC: 0BH17EZ Insertion of Endotracheal Airway into Trachea, Via Natural or Artificial Opening (ICD-10-PCS; 2021-01-23)
PROC: 05HY33Z Insertion of Infusion Device into Upper Vein, Percutaneous Approach (ICD-10-PCS; 2021-01-23)
PROC: 4A033R1 Measurement of Arterial Saturation, Peripheral, Percutaneous Approach (ICD-10-PCS; principal; 2021-01-25)
PROC: 06HY33Z Insertion of Infusion Device into Lower Vein, Percutaneous Approach (ICD-10-PCS; 2021-01-31)
PROC: 5A1D70Z Performance of Urinary Filtration, Intermittent, Less than 6 Hours Per Day (ICD-10-PCS; 2021-02-01)
PROC: 5A1D70Z Performance of Urinary Filtration, Intermittent, Less than 6 Hours Per Day (ICD-10-PCS; 2021-02-02)
PROC: 5A1D70Z Performance of Urinary Filtration, Intermittent, Less than 6 Hours Per Day (ICD-10-PCS; 2021-02-03)
PROC: 5A12012 Performance of Cardiac Output, Single, Manual (ICD-10-PCS; 2021-02-03)
DX: A41.9 Sepsis, unspecified organism (principal); I63.9 Cerebral infarction, unspecified; J96.01 Acute respiratory failure with hypoxia; N17.0 Acute kidney failure with tubular necrosis; J69.0 Pneumonitis due to inhalation of food and vomit; K92.2 Gastrointestinal hemorrhage, unspecified; E87.0 Hyperosmolality and hypernatremia; G93.40 Encephalopathy, unspecified; I16.0 Hypertensive urgency; Z20.822 Contact with and (suspected) exposure to COVID-19; I10 Essential (primary) hypertension; E11.9 Type 2 diabetes mellitus without complications; Z79.84 Long term (current) use of oral hypoglycemic drugs; I48.91 Unspecified atrial fibrillation; E87.5 Hyperkalemia; I46.9 Cardiac arrest, cause unspecified; D64.9 Anemia, unspecified; I27.20 Pulmonary hypertension, unspecified; R04.0 Epistaxis; R56.9 Unspecified convulsions
CPT/HCPCS: 31500; 36415; 36600; 70450; 70496; 70498; 71045; 71250; 74018; 76770; 80048; 80053; 80061; 80074; 80202; 81001; 82140; 82565; 82570; 82728; 82805; 82962; 83615; 83735; 84100; 84145; 84156; 84300; 84478; 84484; 85007; 85014; 85018; 85025; 85027; 85379; 85610; 85730; 86140; 87040; 87070; 87086; 87205; 89050; 93005; 93306; 93880; 94002; 94003; 96374; 96375; G0378; A9270-GY; C9113; J0171; J0282; J0360; J0456; J0610; J0692; J0696; J1100; J1630; J1644; J1650; J1815; J1940; J2060; J2185; J2250; J2704; J3010; J3370; J7030; J7040; J7050; J7120; J8540; Q9967; U0003